=== PATIENT | female | born 1980 | race Caucasian/White ===

== ENCOUNTER 2021-11-13 03:06 | Emergency (ER) | payer OTHER, SELFPAY ==
[2021-11-13 03:26] VITALS: BP 122/80; PULSE 92; RESP 20; TEMP 37; O2SAT 98; BMI 22.1
== END 2021-11-13 08:03 | disposition left against medical advice (07) ==
PROVIDERS: Emergency Provider Emergency Medicine; PCP Internal Medicine
DX: R22.0 Localized swelling, mass and lump, head (principal)
CPT/HCPCS: 99281; 99282

== ENCOUNTER 2021-11-14 03:24 | Emergency (ER) | payer OTHER, SELFPAY ==
[2021-11-14 03:38] VITALS: BP 123/84; PULSE 80; RESP 20; TEMP 37; O2SAT 97; BMI 25.4
--- NOTE | 2021-11-14 05:17 | ED.SKABFB ---
HPI - Skin/Abscess/Foreign Bdy General Chief complaint: Eye Problems Stated complaint: Eye Infection Time Seen by Provider: 11/14/21 05:16 Source: patient Mode of arrival: ambulatory Limitations: no limitations History of Present Illness HPI narrative: Patient with history of IV substance abuse positive small pimple on her left eyebrow 2 days ago for last 24 hours has increased swelling above the left eyebrow with redness patient came here yesterday but left without being seen. No fever no visual problem Related Data Previous Rx's Medication Instructions Recorded cephalexin 500 mg capsule 500 mg PO QID 10 Days #40 cap 11/14/21 doxycycline hyclate 100 mg tablet 100 mg PO BID #20 tab 11/14/21 ibuprofen 600 mg tablet 600 mg PO Q6H PRN #20 tab 11/14/21 Allergies Allergy/AdvReac Type Severity Reaction Status Date / Time No Known Allergies Allergy Unverified 08/11/20 18:45 Review of Systems Review of Systems: Yes all other systems are reviewed and are negative PMFSH Social History Social History Advance Directives: No Advance Directives Information Provided: No Physical Exam Vital Signs: Vital Signs: Last Vital Signs Temp 98.6 F 11/14/21 03:38 Pulse 80 11/14/21 03:38 Resp 20 11/14/21 03:38 BP 123/84 11/14/21 03:38 Pulse Ox 97 11/14/21 03:38 BMI result Body Mass Index 25.4 Const: General: healthy appearing and comfortable HENMT: Face images: 1. Indurated tender swelling left eyebrow with surrounding erythema Resp: Effort & Inspection: normal respiratory effort Auscultation: clear to auscultation bilaterally Cardio: Rate: regular rate Rhythm: regular rhythm MDM - Skin/Abscess/Foreign Bdy MDM Narrative Medical decision making narrative: Patient's cellulitis like to small abscess left eyebrow patient refuse needle aspiration or I&D of the possible early abscess would like to have any antibiotics patient discharged home on antibiotics advised warm compresses and take antibiotic report to the ER if gets worse Discharge Plan Discharge Clinical Impression: Periorbital cellulitis Patient Disposition: Home, Self-Care Instructions: Periorbital Cellulitis in Adults (ED) Additional Instructions: Take antibiotic as advised Report to the ER/PCP was worsening of the swelling for I&D Prescriptions: New cephalexin 500 mg capsule 500 mg PO QID 10 Days Qty: 40 RF: 0 ibuprofen 600 mg tablet 600 mg PO Q6H PRN (Reason: pain) Qty: 20 RF: 0 doxycycline hyclate 100 mg tablet 100 mg PO BID Qty: 20 RF: 0 Interventions: ED Discharge Assessment Last Done: 11/14/21 05:38 Discharge Date/Time: 11/14/21 05:38
[2021-11-14] MEDS: cephALEXin 500 MG CAPSULE PO (05:33)
[2021-11-14] MEDS: Ibuprofen 600 MG TABLET PO (05:33)
== END 2021-11-14 05:38 | disposition home or self-care (01) ==
PROVIDERS: Emergency Provider Internal Medicine
DX: L03.213 Periorbital cellulitis (principal)
CPT/HCPCS: 99283

== ENCOUNTER 2021-12-18 11:29 | Emergency (ER) | payer OTHER, SELFPAY ==
[2021-12-18 11:45] VITALS: BP 139/70; PULSE 75; RESP 19; TEMP 36.1; O2SAT 98; BMI 25.4
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
== END 2021-12-18 14:21 | disposition home or self-care (01) ==
PROVIDERS: Emergency Provider Emergency Medicine
DX: L03.012 Cellulitis of left finger (principal); M79.645 Pain in left finger(s)
CPT/HCPCS: 99282; 99283

== ENCOUNTER 2021-12-23 12:03 | Emergency (ER) | payer OTHER, SELFPAY ==
--- NOTE | ~2021-12-23 | XR_ITS ---
EXAMINATION: XR HAND, LEFT CLINICAL INFORMATION: Question foreign body COMPARISON: Left wrist x-rays 06/15/2020 and left hand x-rays 04/10/2020 TECHNIQUE: PA, lateral, and oblique views of the left hand. FINDINGS: Partially visualized healed fractures of the distal radius and ulna. Carpal rows are well aligned. No carpal, metacarpal or phalangeal fracture. No focal soft tissue swelling. No appreciable degenerative changes. No radiopaque foreign body identified. XR/XR hand LT min 3V IMPRESSION: Grossly unremarkable radiographs of the left hand.
[2021-12-23 12:11] VITALS: BP 126/92; PULSE 90; RESP 18; TEMP 36.6; O2SAT 96; BMI 24.4
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
[2021-12-23] MEDS: Acetaminophen 325 MG TABLET 650 MG PO (13:07)
== END 2021-12-23 13:25 | disposition home or self-care (01) ==
PROVIDERS: Emergency Provider Emergency Medicine
DX: L03.114 Cellulitis of left upper limb (principal); M79.642 Pain in left hand; S61.032D Puncture wound without foreign body of left thumb without damage to nail, subsequent encounter; X58.XXXD Exposure to other specified factors, subsequent encounter
CPT/HCPCS: 73130; 99283; 99284

== ENCOUNTER 2023-04-14 10:37 | Emergency (ER) | payer OTHER, SELFPAY ==
[2023-04-14 10:44] VITALS: BP 117/74; BP 122/88; PULSE 64; RESP 16; TEMP 36.8; O2SAT 96; BMI 23.2
[2023-04-14 10:53] VITALS: BMI 23.4
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
[2023-04-14] MEDS: Amoxicillin/Potassium Clav 500 MG TABLET PO (11:40)
[2023-04-14] MEDS: Rabies Immune Globulin/PF 900 UNIT/3 ML VIAL 1086.8 UNIT IM (11:41)
== END 2023-04-14 12:49 | disposition home or self-care (01) ==
PROVIDERS: Emergency Provider Emergency Medicine Emergency Medical Services
DX: S01.85XA Open bite of other part of head, initial encounter (principal); W53.81XA Bitten by other rodent, initial encounter; Y93.9 Activity, unspecified; Y92.9 Unspecified place or not applicable; Y99.9 Unspecified external cause status; Z59.00 Homelessness unspecified; Z29.14 Encounter for prophylactic rabies immune globulin; Z20.3 Contact with and (suspected) exposure to rabies; Z79.899 Other long term (current) drug therapy; Z23 Encounter for immunization
CPT/HCPCS: 90375; 90471; 90675; 96372; 99282; 99284

== ENCOUNTER → 2023-04-17 13:25 | Outpatient (BNVA) | payer OTHER, SELFPAY | PROVIDERS: Visit Provider Nurse Practitioner Psychiatric/Mental Health | DX: F14.20 Cocaine dependence, uncomplicated (principal); F11.20 Opioid dependence, uncomplicated; B19.20 Unspecified viral hepatitis C without hepatic coma; Z51.81 Encounter for therapeutic drug level monitoring; Z79.899 Other long term (current) drug therapy | CPT/HCPCS: 80305; 99212 ==

== ENCOUNTER 2023-05-16 12:55 | Emergency (ER) | payer OTHER, SELFPAY ==
[2023-05-16 12:57] VITALS: BP 153/90; PULSE 95; RESP 18; TEMP 36.7; O2SAT 98; BMI 21.5
--- NOTE | 2023-05-16 12:58 | ED_ITS ---
HPI - General Adult General Chief complaint: Animal Bite Stated complaint: spider bite Time Seen by Provider: 05/16/23 14:17 Source: patient, RN notes reviewed and old records reviewed Mode of arrival: ambulatory History of Present Illness HPI narrative: 42-year-old female the past medical history of IVDA presents to the ED complaining suspected spider bite to left posterior scalp x yesterday. Patient reports increasing discomfort. Denies pointing/drainage, fever/chills, ear pain, sore throat, difficulty swallowing, decreased neck ROM. Denies injecting into area Onset (ago): day(s) Related Data Previous Rx's Medication Instructions Recorded cephalexin 500 mg capsule 500 mg PO QID 10 days #40 caps 11/14/21 doxycycline hyclate 100 mg tablet 100 mg PO BID #20 tabs 11/14/21 ibuprofen 600 mg tablet 600 mg PO Q6H PRN pain #20 tabs 11/14/21 cephalexin 500 mg capsule 500 mg PO Q6H 7 days #28 caps 12/18/21 sulfamethoxazole 800 1 tab PO Q12H 7 days #14 tabs 12/18/21 mg-trimethoprim 160 mg tablet (Bactrim DS) clindamycin HCl 150 mg capsule 150 mg PO TID Take 2 capsules TID 12/23/21 x 7 days #42 caps amoxicillin 500 mg-potassium 1 tab PO TID #30 tabs 04/14/23 clavulanate 125 mg tablet (Augmentin) buprenorphine 2 mg-naloxone 0.5 mg 1 film buccal BID 4 days #8 ea 04/17/23 sublingual film (Suboxone) buprenorphine 8 mg-naloxone 2 mg 1 film buccal DAILY #4 ea 04/17/23 sublingual film (Suboxone) clonidine HCl 0.1 mg tablet 0.1 mg PO Q6H PRN withdrawal 04/17/23 symptoms #30 tabs hydroxyzine HCl 50 mg tablet 50 mg PO QID PRN anxiety #30 tabs 04/17/23 cephalexin 500 mg capsule 500 mg PO QID 7 days #28 caps 05/16/23 doxycycline hyclate 100 mg tablet 100 mg PO BID 7 days #14 tabs 05/16/23 Allergies Allergy/AdvReac Type Severity Reaction Status Date / Time No Known Allergies Allergy Verified 04/17/23 13:36 Review of Systems Review of Systems: Constitutional: No Fever, No Chills ENT/Mouth: No Ear Pain, No Nasal Congestion, No Sinus Pain, No Hoarseness, No sore throat, No Rhinorrhea, No Swallowing Difficulty Cardiovascular: No Chest Pain, No SOB Respiratory: No Cough, No Sputum, No Wheezing Gastrointestinal: No Nausea, No Vomiting, No Abdominal pain Musculoskeletal: No joint pain, No Myalgias, No Joint Swelling Skin: +abscess, No rash Neuro: No Weakness, No Numbness, No Paresthesias Yes all other systems are reviewed and are negative Constitutional: Constitutional: Reports as per [facility] Past Medical History Attestation statement: The following information was validated with the patient. Source: old records reviewed Medical History Opiate abuse, continuous Social History Social History Advance Directives: No Advance Directives Information Provided: Yes Physical Exam ED Vital Signs: Vital Signs - 24 hr 05/16/23 12:57 Temperature 98.0 F Pulse Rate 95 Respiratory Rate 18 Blood Pressure 153/90 H Pulse Oximetry 98 Oxygen Delivery Method Room Air BMI result Body Mass Index 21.5 Const Other: poor hygiene General: cooperative and no acute distress Orientation/consciousness: patient oriented x3 Limitations: no limitations HENMT Other: + abscess noted to left lower posterior scalp with overlying erythema. + indurated. No pointing or fluctuance. Small amount of surrounding erythema. No neck swelling or torticollis. Mastoid WNL. No crepitus Head: Yes normal to inspection and Yes atraumatic Ears: hearing grossly normal bilaterally, external ears normal, TM's normal bilaterally and mastoids normal General nose exam: Normal external nose present Face and sinus: Yes normal facial exam Mouth: Normal oral and palatal mucosa present, no drooling and no muffled voice Throat: Yes posterior oropharynx normal, Yes tonsils normal, Yes uvula midline, No peritonsillar mass, No uvula laterally displaced and No uvular edema Eyes General: appearance normal, both eyes and all related structures EOM: EOMs intact bilaterally Neck Neck: Yes normal visual inspection, Yes no lymphadenopathy, Yes no meningeal signs, Yes supple, No anterior neck swelling and No torticollis Resp Effort & Inspection: normal respiratory effort and no respiratory distress Cardio Rate: regular rate Skin Rashes: no rashes Wounds: no wounds Neuro General: patient oriented x3, tone normal and no meningeal signs Gait exam (Neuro): Normal gait present Extrem General: Yes normal to inspection Course Course Course Narrative: This is an RME: Additional HPI, ROS, PE not included below will be deferred to primary provider. This is a 42-year-old female presenting to the emergency department for evaluation ? Insect bite the back of her head. Patient noticed this area yesterday has increasing pain and swelling. No fevers or chills. Needs further evaluation in main ER. VSS. Medical Decision Making Medical Decision Making MDM Narrative: 42-year-old female the past medical history of IVDA presents to the ED complaining suspected spider bite to left posterior scalp x yesterday. On exam vital signs stable, NAD, nontoxic appearing, physical exam as above with suspected abscess that is indurated w/overlying cellulitis. Possible spider or insect bite. No other rash. New extending neck or mastoid tenderness/swelling, no respiratory distress or airway compromise. No I&D indicated at this time. Low suspicion for mastoiditis, otitis, MSK pain/strain Plan: Po antibiotics, close follow-up Results discussed with patient including worrisome signs and symptoms and strict return precautions, and when to return to the emergency department. They verbalized understanding and feel safe for discharge at this time. Differential Diagnosis Differential Diagnoses: The differential diagnosis associated with the presentation includes As above External Record Review External record reviewed: Inpatient record, Office record, Outpatient record, Prior outpatient labs, Prior outpatient radiology, Primary care record and Outside ED record Tests considered The following testing was considered but not selected: As above Prescription Management I considered prescription management with: Pain Medication and Antibiotic Social Determinants Patient?s care significantly limited by Social Determinants of Health including: Inadequate housing, Alcoholism and drug addiction in family, Problems related to primary support group and Problems related to employment Discharge Plan Discharge Clinical Impression: Abscess Patient Disposition: Home, Self-Care Instructions: Abscess (ED) Additional Instructions: Doxycycline and Keflex are antibiotic please take as prescribed Apply warm compresses If area is growing, comes to pointing head, is draining or you have fever return to the emergency department Prescriptions: New cephalexin 500 mg capsule 500 mg PO QID 7 Days Qty: 28 0RF doxycycline hyclate 100 mg tablet 100 mg PO BID 7 Days Qty: 14 0RF No Action cephalexin 500 mg capsule 500 mg PO Q6H 7 Days Qty: 28 0RF sulfamethoxazole-trimethoprim [Bactrim DS] 800-160 mg tablet 1 tab PO Q12H 7 Days Qty: 14 0RF clindamycin HCl 150 mg capsule 150 mg PO TID Qty: 42 0RF cephalexin 500 mg capsule 500 mg PO QID 10 Days Qty: 40 0RF ibuprofen 600 mg tablet 600 mg PO Q6H PRN (Reason: pain) Qty: 20 0RF doxycycline hyclate 100 mg tablet 100 mg PO BID Qty: 20 0RF amoxicillin-pot clavulanate [Augmentin] 500-125 mg tablet 1 tab PO TID Qty: 30 0RF buprenorphine-naloxone [Suboxone] 2-0.5 mg film 1 film buccal BID 4 Days Qty: 8 0RF Rx Instructions: place 1 strip/tab under (each) side of tongue buprenorphine-naloxone [Suboxone] 8-2 mg film 1 film buccal DAILY Qty: 4 0RF clonidine HCl 0.1 mg tablet 0.1 mg PO Q6H PRN (Reason: withdrawal symptoms) Qty: 30 0RF hydroxyzine HCl 50 mg tablet 50 mg PO QID PRN (Reason: anxiety) Qty: 30 0RF Referrals: Physician,None [Primary Care Provider] -
[2023-05-16 15:41] VITALS: BP 135/89; PULSE 56; RESP 16; O2SAT 95
== END 2023-05-16 15:46 | disposition home or self-care (01) ==
PROVIDERS: Emergency Provider Student in an Organized Health Care Education/Training Program
DX: L02.811 Cutaneous abscess of head [any part, except face] (principal); F11.10 Opioid abuse, uncomplicated
CPT/HCPCS: 99283; 99284

== ENCOUNTER 2023-06-08 04:10 | Emergency (ER) | payer OTHER, SELFPAY ==
[2023-06-08 04:16] VITALS: BP 136/83; PULSE 89; RESP 18; TEMP 37.2; O2SAT 94; BMI 22.8
[2023-06-08 04:54] LABS: MANUAL DIFF FLAG NO
[2023-06-08 04:55] LABS: Basophils Percent Auto 0.1 % (0-2); Eosinophils Percent Auto 0.3 % (0-4); Hematocrit 34.7 % (37.0-47.0); Hemoglobin 11.3 g/dl (12.0-16.0); Imm Gran Abs Auto 0.08 X10*3/uL (0.00-0.03); Imm Gran Pct Auto 0.6 % (0.0-0.4); Lymphocytes Absolute Auto 1.8 X10*3/uL (1.2-4.9); Lymphocytes Percent Auto 12.5 % (20-40); Mean Corpuscular HGB Conc 32.6 g/dl (31.0-35.0); Mean Corpuscular Hemoglobin 28.8 pg (27.0-33.0); Mean Corpuscular Volume 88.3 fL (80.0-98.0); Mean Platelet Volume 9.6 fL (9.4-12.3); Monocytes Percent Auto 7.1 % (2-11); Neutrophils Absolute Auto 11.3 x10*3/uL (2.0-8.3); Neutrophils Percent Auto 79.4 % (45-73); Platelet Count 262 X10*3/uL (160-400); Red Blood Count 3.93 X10*6/uL (4.20-5.50); Red Cell Distribution Width 14.2 % (11.0-16.0); White Blood Count 14.2 X10*3/uL (4.8-10.8)
[2023-06-08 05:05] LABS: Lactic Acid 0.7 mmol/L (0.5-2.0)
[2023-06-08 05:10] LABS: Alanine Aminotransferase 34 U/L (0-31); Albumin Level 3.6 g/dL (3.5-5.0); Alkaline Phosphatase 57 U/L (39-117); Anion Gap 12 (12-20); Aspartate Amino Transferase 31 U/L (5-31); Bilirubin Total 0.3 mg/dL (0.0-1.0); Blood Urea Nitrogen 17 mg/dL (9-16); Calcium 9.9 mg/dL (8.4-10.2); Carbon Dioxide 26 mmol/L (22-29); Chloride 103 mmol/L (96-108); Creatinine Clr Calc Pharmacy 74.5; Estimated Glomerular Filt Rate > 60; Glucose Random 105 mg/dL (60-115); Potassium 3.9 mmol/L (3.3-5.1); Sodium 137 mmol/L (135-145)
--- NOTE | 2023-06-08 06:32 | ED.GENADULT ---
HPI - General Adult General Chief complaint: Extremity Problem Stated complaint: Abscess/?Arm infection Time Seen by Provider: 06/08/23 06:30 Source: patient, RN notes reviewed and old records reviewed Mode of arrival: ambulatory History of Present Illness HPI narrative: 42-year-old female with past medical history of IVDA presenting to the ED complaining of right arm pain, swelling, and erythema x few days. Admits to injecting cocaine into area. Denies known fever/chills, drainage from area, SOB. Patient was recently seen and treated in our ED on 05/16 for abscess to back of head finished 7 day course of Doxycycline and Keflex Onset (ago): day(s) Related Data Previous Rx's Medication Instructions Recorded cephalexin 500 mg capsule 500 mg PO QID 10 days #40 caps 11/14/21 doxycycline hyclate 100 mg tablet 100 mg PO BID #20 tabs 11/14/21 ibuprofen 600 mg tablet 600 mg PO Q6H PRN pain #20 tabs 11/14/21 cephalexin 500 mg capsule 500 mg PO Q6H 7 days #28 caps 12/18/21 sulfamethoxazole 800 1 tab PO Q12H 7 days #14 tabs 12/18/21 mg-trimethoprim 160 mg tablet (Bactrim DS) clindamycin HCl 150 mg capsule 150 mg PO TID Take 2 capsules TID 12/23/21 x 7 days #42 caps amoxicillin 500 mg-potassium 1 tab PO TID #30 tabs 04/14/23 clavulanate 125 mg tablet (Augmentin) buprenorphine 2 mg-naloxone 0.5 mg 1 film buccal BID 4 days #8 ea 04/17/23 sublingual film (Suboxone) buprenorphine 8 mg-naloxone 2 mg 1 film buccal DAILY #4 ea 04/17/23 sublingual film (Suboxone) clonidine HCl 0.1 mg tablet 0.1 mg PO Q6H PRN withdrawal 04/17/23 symptoms #30 tabs hydroxyzine HCl 50 mg tablet 50 mg PO QID PRN anxiety #30 tabs 04/17/23 cephalexin 500 mg capsule 500 mg PO QID 7 days #28 caps 05/16/23 doxycycline hyclate 100 mg tablet 100 mg PO BID 7 days #14 tabs 05/16/23 cephalexin 500 mg capsule 500 mg PO QID 10 days #40 caps 06/08/23 sulfamethoxazole 800 1 tab PO Q12H 10 days #20 tabs 06/08/23 mg-trimethoprim 160 mg tablet (Bactrim DS) Allergies Allergy/AdvReac Type Severity Reaction Status Date / Time No Known Allergies Allergy Verified 04/17/23 13:36 Review of Systems Review of Systems: Constitutional: No Fever, No Chills ENT/Mouth: No Ear Pain, No Nasal Congestion, No sore throat, No Rhinorrhea, No Swallowing Difficulty Cardiovascular: No Chest Pain, No SOB Respiratory: No Cough, No Sputum, No Wheezing Gastrointestinal: No Nausea, No Vomiting, No Abdominal pain Musculoskeletal: + joint pain, No Myalgias, + Joint Swelling Skin: + Skin Lesions, No rash Neuro: No Weakness, No Numbness, No Paresthesias Yes all other systems are reviewed and are negative Constitutional: Constitutional: Reports as per [facility] Past Medical History Attestation statement: The following information was validated with the patient. Source: old records reviewed Medical History Opiate abuse, continuous Social History Social History Alcohol intake: never Smoked in Last 30 Days: Yes Use of substances other than those prescribed or required for medical reasons: Yes Substance Use Type: Crack/Cocaine Substance Use Frequency: Chronic Longstanding Advance Directives: No Advance Directives Information Provided: Yes Patient : No Physical Exam ED Vital Signs: Vital Signs - 24 hr 06/08/23 04:16 Temperature 98.9 F Pulse Rate 89 Respiratory Rate 18 Blood Pressure 136/83 Pulse Oximetry 94 Oxygen Delivery Method Room Air BMI result Body Mass Index 22.8 Const General: cooperative, no acute distress, alert and awake Orientation/consciousness: patient oriented x3 Limitations: no limitations HENMT Head: Yes normal to inspection and Yes atraumatic Ears: hearing grossly normal bilaterally General nose exam: Normal external nose present Face and sinus: Yes normal facial exam Eyes General: appearance normal, both eyes and all related structures EOM: EOMs intact bilaterally Neck Neck: Yes normal visual inspection and Yes no meningeal signs Resp Effort & Inspection: normal respiratory effort and no respiratory distress Cardio Rate: regular rate Heart sounds: S1 normal heart sound present and S2 normal heart sound present Peripheral pulses: Peripheral pulses 2+ throughout Skin Other: +RUE with diffuse swelling/edema and erythema. Warm to touch. + indurated antecubital area. No focal fluctuance or pointing. No drainage. Neurovascular intact distally. Rashes: no rashes Neuro General: patient oriented x3, tone normal and no meningeal signs Gait exam (Neuro): Normal gait present Extrem General: Yes normal to inspection Course Course Course Narrative: -28--leukocytosis of 14.2. labs otherwise reassuring -0740--patient eloped the ED prior to ultrasound. It did to self remove her IV. We will still send antibiotics to pharmacy in hopes patient picks them up Medications Administered Discontinued Medications Generic Name Dose Route Start Last Admin Trade Name Freq PRN Reason Stop Dose Admin Ceftriaxone Sodium 1 gm/ 50 mls @ 100 mls/hr 06/08/23 06:44 06/08/23 07:31 Sodium Chloride IV 06/08/23 07:13 Infused ONCE ONE Infusion Medical Decision Making Medical Decision Making [facility] Narrative: 42-year-old female with past medical history of IVDA presenting to the ED complaining of right arm pain, swelling, and erythema x few days. On exam vital signs stable, NAD, nontoxic appearing, physical exam as noted above with right upper extremity erythema, swelling, warmth and induration. No fluctuance/pointing. No crepitus. Concern for cellulitis/edema/abscess vs DVT. Lower suspicion for sepsis, compartment syndrome or septic joint Plan: Labs, lactic/blood cultures, venous duplex ultrasound, IV Rocephin Please refer to course for remaining clinical decision making, interpretation of labs/imaging results, and discussions with consultants and/or family members. Differential Diagnosis Differential Diagnoses: The differential diagnosis associated with the presentation includes As above Admission/Observation Consideration of admission/observation: Escalation of care including admission/observation considered Lab Data [facility] Lab Attestation statement: I reviewed the patient's lab results. 06/08/23 04:39 06/08/23 04:39 Labs: Lab Results 06/08/23 06/08/23 06/08/23 Range/Units 04:39 04:39 04:39 WBC 14.2 H (4.8-10.8) X10*3/uL RBC 3.93 L (4.20-5.50) X10*6/uL Hgb 11.3 L (12.0-16.0) g/dl Hct 34.7 L (37.0-47.0) % MCV 88.3 (80.0-98.0) fL MCH 28.8 (27.0-33.0) pg MCHC 32.6 (31.0-35.0) g/dl RDW 14.2 (11.0-16.0) % Plt Count 262 (160-400) X10*3/uL MPV 9.6 (9.4-12.3) fL Immature Gran % (Auto) 0.6 H (0.0-0.4) % Neut % (Auto) 79.4 H (45-73) % Lymph % (Auto) 12.5 L (20-40) % Mellette % (Auto) 7.1 (2-11) % Eos % (Auto) 0.3 (0-4) % Baso % (Auto) 0.1 (0-2) % Lymph # (Auto) 1.8 (1.2-4.9) X10*3/uL Mellette # (Auto) 1.0 (0.1-1.2) X10*3/uL Eos # (Auto) 0.0 (0.0-0.4) X10*3/uL Baso # (Auto) 0.0 (0.0-0.2) X10*3/uL Abs Immat Gran (auto) 0.08 H (0.00-0.03) X10*3/uL Absolute Neuts (auto) 11.3 H (2.0-8.3) x10*3/uL Absolute Nucleated RBC 0.000 (0.0-0.012) X10*3/uL Nucleated RBC % (auto) 0.0 (0.0-0.2) /100WBC Sodium 137 (135-145) mmol/L Potassium 3.9 (3.3-5.1) mmol/L Chloride 103 (96-108) mmol/L Carbon Dioxide 26 (22-29) mmol/L Anion Gap 12 (12-20) BUN 17 H (9-16) mg/dL Creatinine 0.72 (0.5-1.4) mg/dL Estim Creat Clear Calc 74.5 Estimated GFR > 60 Random Glucose 105 (60-115) mg/dL Lactic Acid 0.7 (0.5-2.0) mmol/L Calcium 9.9 (8.4-10.2) mg/dL Total Bilirubin 0.3 (0.0-1.0) mg/dL AST 31 (5-31) U/L ALT 34 H (0-31) U/L Alkaline Phosphatase 57 (39-117) U/L Total Protein 8.0 (6.5-8.0) g/dL Albumin 3.6 (3.5-5.0) g/dL Radiology Impression Discussion of test interpretation with radiology: I have reviewed the radiologist's reading. External Record Review External record reviewed: Inpatient record, Office record, Outpatient record, Prior outpatient labs, Prior outpatient radiology, Primary care record and Outside ED record Tests considered The following testing was considered but not selected: As above Prescription Management I considered prescription management with: Pain Medication and Antibiotic Social Determinants Patient?s care significantly limited by Social Determinants of Health including: Inadequate housing, Low income, Alcoholism and drug addiction in family and Problems related to primary support group Discharge Plan Discharge Clinical Impression: Cellulitis Patient Disposition: Elopement Instructions: Cellulitis (DC) Prescriptions: New sulfamethoxazole-trimethoprim [Bactrim DS] 800-160 mg tablet 1 tab PO Q12H 10 Days Qty: 20 0RF cephalexin 500 mg capsule 500 mg PO QID 10 Days Qty: 40 0RF No Action cephalexin 500 mg capsule 500 mg PO Q6H 7 Days Qty: 28 0RF sulfamethoxazole-trimethoprim [Bactrim DS] 800-160 mg tablet 1 tab PO Q12H 7 Days Qty: 14 0RF clindamycin HCl 150 mg capsule 150 mg PO TID Qty: 42 0RF cephalexin 500 mg capsule 500 mg PO QID 10 Days Qty: 40 0RF ibuprofen 600 mg tablet 600 mg PO Q6H PRN (Reason: pain) Qty: 20 0RF doxycycline hyclate 100 mg tablet 100 mg PO BID Qty: 20 0RF amoxicillin-pot clavulanate [Augmentin] 500-125 mg tablet 1 tab PO TID Qty: 30 0RF cephalexin 500 mg capsule 500 mg PO QID 7 Days Qty: 28 0RF doxycycline hyclate 100 mg tablet 100 mg PO BID 7 Days Qty: 14 0RF buprenorphine-naloxone [Suboxone] 2-0.5 mg film 1 film buccal BID 4 Days Qty: 8 0RF Rx Instructions: place 1 strip/tab under (each) side of tongue buprenorphine-naloxone [Suboxone] 8-2 mg film 1 film buccal DAILY Qty: 4 0RF clonidine HCl 0.1 mg tablet 0.1 mg PO Q6H PRN (Reason: withdrawal symptoms) Qty: 30 0RF hydroxyzine HCl 50 mg tablet 50 mg PO QID PRN (Reason: anxiety) Qty: 30 0RF Interventions: ED Discharge Assessment Last Done: 06/08/23 07:50 Discharge Date/Time: 06/08/23 07:51
--- NOTE | 2023-06-08 06:47 | PC.NURSE ---
Pt A&Ox4, reports 7/10 constant pressure pain x 2 days after IV drug use to Right arm, states I missed . Arm is swollen, red, and warm to touch. IV line placed, blood work collected and sent to lab.
[2023-06-08] MEDS: cefTRIAXone sodium 1 GM in 0.9 % Sodium Chloride 50 ML IV (06:57)
--- NOTE | 2023-06-08 07:49 | PC.NURSE ---
Upon D/C Pt was not in room, IV line and hospital attire were on bed. Provider notified.
== END 2023-06-08 07:51 | disposition left against medical advice (07) ==
PROVIDERS: Emergency Provider Emergency Medicine
DX: L03.113 Cellulitis of right upper limb (principal); F19.10 Other psychoactive substance abuse, uncomplicated
CPT/HCPCS: 36415; 80053; 83605; 85025; 87040; 96365; 99284; J0696

== ENCOUNTER 2023-08-26 10:25 | Outpatient (AMB) | payer OTHER, SELFPAY ==
--- NOTE | 2023-08-26 10:26 | MHC.OFFVIS ---
Intake Vital Signs 08/26/23 10:31 BP 118/72 Blood Pressure Location Lt radial Position Sitting Pulse 78 Pulse Source Pulse Oximeter Pulse Oximetry (%) 96 Oxygen Delivery Method Room Air Intake Visit Reasons: MAT Restart Intake Note: the patient presents for a mat visit Promotions Specialist Required: No Allergies No Known Allergies Allergy (Verified 08/26/23 10:31) Medication List - Last Reconciled 08/26/23 by Savita Quintanilla CNP buprenorphine-naloxone 2-0.5 mg (Suboxone) 1 film buccal BID 4 days Do you need a note to return to daycare/school/sports/work: No HPI MAT Restart HPI Details Patient presents for OUD treatment and restart of buprenorphine She had been seen in this office several months ago, for a very brief period. Having withdrawl sx--restless legs and cramping in stomach Last use yesterday morning Half a bundle to one bundle daily no alcohol crack cocaine - $20 Reports 22 lifetime overdoses in last 2 years (since she started injecting) Hepatitis C--would like to seek treatment once [facility] treatment stabilized Lives in a tent with her partner [facility] Medical History Opiate abuse, continuous Social History Alcohol intake: never Substance Use Type: Crack/Cocaine Review of Systems Const Reports as per HPI, Reports body aches and Reports difficulty sleeping Physical Exam Vital Signs: Last Vital Signs Pulse 78 08/26/23 10:31 BP 118/72 08/26/23 10:31 Pulse Ox 96 08/26/23 10:31 Oxygen Delivery Method Room Air 08/26/23 10:31 Const General: cooperative and healthy appearing Nutritional Appearance: average body habitus Orientation/consciousness: patient oriented x3 Limitations: no limitations Skin Other: left forearm with 2 raised areas--cyst like. painless and soft. Neuro General: patient oriented x3 Results AMB Test Urine AMB Test Urine Negative Last Edit by Charleen Duong CMA on 08/26/23 11:07 Results Reviewed Results Reviewed: Laboratory Last Values [facility] Negative 08/26/23 11:04 Assessment & Plan Assessment & Plan (1) Opioid use disorder: Code(s): F11.90 - Opioid use, unspecified, uncomplicated Plan: comfort medications ordered to take until she is ready to start bupre advised to take 16mg at once for first dose will follow up via phone and refill with be sent for remainder of week Orders: Orders AMB HCG Urine Test Today Z32.01 - Encounter for test, result positive, Z32.02 - Encounter for test, result negative Medications: New clonidine HCl 0.1 mg PO BEDTIME 7 tabs 0RF tizanidine 4 mg PO BID PRN 20 tabs 0RF muscle spasticity trazodone 50 mg PO BEDTIME PRN 10 tabs 0RF sleep buprenorphine-naloxone 8-2 mg (Suboxone) 1 film sublingual TID 10 ea 0RF Coding Level of Care Code Est Pt Level 4 (52135) Diagnoses Opioid use disorder F11.90
[2023-08-26 10:31] VITALS: BP 118/72; PULSE 78; O2SAT 96
== END 2023-08-26 11:31 | disposition home or self-care (01) ==
LOC: HO.HCC 10:25
PROVIDERS: Visit Provider Nurse Practitioner Psychiatric/Mental Health
DX: Z32.02 Encounter for pregnancy test, result negative (principal); Z32.01 Encounter for pregnancy test, result positive; F11.90 Opioid use, unspecified, uncomplicated
CPT/HCPCS: 99214

== ENCOUNTER → 2023-08-26 10:25 | Outpatient (BNVA) | payer OTHER, SELFPAY | PROVIDERS: Visit Provider Nurse Practitioner Psychiatric/Mental Health | DX: F11.20 Opioid dependence, uncomplicated (principal); Z32.02 Encounter for pregnancy test, result negative; Z59.01 Sheltered homelessness; Z51.81 Encounter for therapeutic drug level monitoring; Z79.899 Other long term (current) drug therapy | CPT/HCPCS: 81025; 99212 ==

== ENCOUNTER 2023-08-29 11:02 | Outpatient (AMB) | payer OTHER, SELFPAY ==
--- NOTE | 2023-08-29 11:07 | A.OFFVIS_ITS ---
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 Allergies No Known Allergies Allergy (Verified 08/29/23 11:08) Do you need a note to return to daycare/school/sports/work: No HPI MAT Visit HPI Details Patient presents for CHIP treatment follow up Started suboxone earlier this week Has been taking 2 films daily discussed transitioning to the injection has been using less --last use prior to appt [facility] Medical History Opiate abuse, continuous Social History Alcohol intake: never Substance Use Type: Crack/Cocaine Physical Exam Vital Signs: Last Vital Signs Pulse 81 08/29/23 11:16 BP 118/70 08/29/23 11:16 Pulse Ox 95 08/29/23 11:16 Oxygen Delivery Method Room Air 08/29/23 11:16 Const General: cooperative and healthy appearing Nutritional Appearance: average body habitus Orientation/consciousness: patient oriented x3 Limitations: no limitations Skin Other: left forearm with 2 raised areas--cyst like. painless and soft. Neuro General: patient oriented x3 Results AMB 14 Panel Urine Drug Screen Urine Marijuana (THC) Negative Last Edit by Charleen Duong CMA on 08/29/23 11:18 Urine Cocaine Positive Last Edit by Charleen Duong CMA on 08/29/23 11:18 Urine Morphine Positive Last Edit by Charleen Duong CMA on 08/29/23 11:18 Urine Methamphetamine Negative Last Edit by Charleen Duong CMA on 08/29/23 11:18 Urine Amphetamine Negative Last Edit by Charleen Duong CMA on 08/29/23 11:1 8 Urine Benzodiazepine Negative Last Edit by Charleen Duong CMA on 08/29/23 11:18 Urine Barbiturates Negative Last Edit by Charleen Duong CMA on 08/29/23 11: 18 Urine Methadone Negative Last Edit by Charleen Duong CMA on 08/29/23 11:18 Urine Buprenorphine Negative Last Edit by Charleen Duong CMA on 08/29/23 11 :18 Urine Tricyclic Antidepressant Negative Last Edit by Charleen Duong CMA on 08/29/23 11:18 Urine MDMA Negative Last Edit by Charleen Duong CMA on 08/29/23 11:18 Urine Oxycodone Negative Last Edit by Charleen Duong CMA on 08/29/23 11:18 Urine Phencyclidine Negative Last Edit by Charleen Duong CMA on 08/29/23 11 :18 Urine Propoxyphene Negative Last Edit by Charleen Duong CMA on 08/29/23 11: 18 Results Reviewed Results Reviewed: Laboratory Last Values POC Urine Buprenorphine Negative 08/29/23 11:08 POC Urine Morphine Positive 08/29/23 11:08 POC Urine Oxycodone Negative 08/29/23 11:08 POC Urine Methadone Negative 08/29/23 11:08 POC Urine Propoxyphene Negative 08/29/23 11:08 POC Urine Barbiturates Negative 08/29/23 11:08 POC U Tricyclic Antidpr Negative 08/29/23 11:08 POC Urine PCP Negative 08/29/23 11:08 POC Ur Amphetamines Negative 08/29/23 11:08 POC Ur Methamphetamine Negative 08/29/23 11:08 POC Urine MDMA Negative 08/29/23 11:08 POC Ur Benzodiazepine Negative 08/29/23 11:08 POC Urine Cocaine Positive 08/29/23 11:08 POC Ur Marijuana (THC) Negative 08/29/23 11:08 Assessment & Plan Assessment & Plan (1) Opioid use disorder: Code(s): F11.90 - Opioid use, unspecified, uncomplicated Plan: * continue suboxone at 8mg BID * sublocade injection ordered * follow up one week Orders: Orders AMB 14 Panel Urine Drug Screen Today Z51.81 - Encounter for therapeutic drug level monitoring Medications: New buprenorphine ER (Sublocade) 300 mg (1.5 mL) subcut .every 28 days 1.5 mL 2RF Changed From buprenorphine-naloxone 8-2 mg (Suboxone) 1 film sublingual TID 10 ea 0RF To buprenorphine-naloxone 8-2 mg (Suboxone) 1 film sublingual BID 14 ea 0RF Discontinued buprenorphine-naloxone 2-0.5 mg (Suboxone) place 1 strip/tab under (each) side of tongue Discontinued Reason: No Longer Medically Relevant 1 film buccal BID 4 days 8 ea 0RF Coding Level of Care Code Est Pt Level 4 (17766) Diagnoses Opioid use disorder F11.90
[2023-08-29 11:16] VITALS: BP 118/70; PULSE 81; O2SAT 95
== END 2023-08-29 11:41 | disposition home or self-care (01) ==
PROVIDERS: Visit Provider Nurse Practitioner Psychiatric/Mental Health
DX: Z51.81 Encounter for therapeutic drug level monitoring (principal); F11.90 Opioid use, unspecified, uncomplicated
CPT/HCPCS: 99214

== ENCOUNTER → 2023-08-29 11:02 | Outpatient (BNVA) | payer OTHER, SELFPAY | PROVIDERS: Visit Provider Nurse Practitioner Psychiatric/Mental Health | DX: Z51.81 Encounter for therapeutic drug level monitoring (principal); F11.20 Opioid dependence, uncomplicated | CPT/HCPCS: 80305; 99212 ==

== ENCOUNTER 2023-09-12 11:27 | Outpatient (AMB) | payer OTHER, SELFPAY ==
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
[2023-09-12 11:37] VITALS: BP 116/70; PULSE 100; O2SAT 96
== END 2023-09-12 13:35 | disposition home or self-care (01) ==
PROVIDERS: Visit Provider Nurse Practitioner Psychiatric/Mental Health
DX: Z51.81 Encounter for therapeutic drug level monitoring (principal); F11.90 Opioid use, unspecified, uncomplicated
CPT/HCPCS: 99214

== ENCOUNTER → 2023-09-12 11:27 | Outpatient (BNVA) | payer OTHER, SELFPAY | PROVIDERS: Visit Provider Nurse Practitioner Psychiatric/Mental Health | DX: F11.20 Opioid dependence, uncomplicated (principal) | CPT/HCPCS: 80305; 99212 ==

== ENCOUNTER 2023-09-14 22:31 | Emergency (ER) | payer OTHER, SELFPAY ==
[2023-09-14 22:38] VITALS: BP 136/75; BP 152/86; PULSE 104; PULSE 108; RESP 20; TEMP 37.3; O2SAT 95; BMI 22.8
== END 2023-09-15 01:00 | disposition left against medical advice (07) ==
PROVIDERS: Emergency Provider Emergency Medicine
DX: R53.81 Other malaise (principal); F17.210 Nicotine dependence, cigarettes, uncomplicated; F43.10 Post-traumatic stress disorder, unspecified; F11.20 Opioid dependence, uncomplicated; F41.9 Anxiety disorder, unspecified; F32.A Depression, unspecified; Z53.21 Procedure and treatment not carried out due to patient leaving prior to being seen by health care provider
CPT/HCPCS: 99281

== ENCOUNTER 2023-09-19 01:10 | Inpatient (IN) | payer OTHER, SELFPAY ==
[2023-09-19] VITALS (7 sets, daily range): BP systolic 103–153; BP diastolic 6–92; PULSE 63–94; RESP 14–18; TEMP 36.3–38.1; O2SAT 94–100; BMI 22.8
--- NOTE | ~2023-09-19 | XR_ITS ---
EXAMINATION: XR lumbar spine 2-3V, XR thoracic spine 3V CLINICAL INFORMATION: Pain COMPARISON: None TECHNIQUE: 2 views of the thoracic spine and 3 views of the lumbar spine FINDINGS: THORACIC SPINE: Vertebral body heights are maintained. Alignment is maintained. Disc space heights are maintained. Paravertebral soft tissues are unremarkable. LUMBAR SPINE: 5 nonrib-bearing lumbar-type vertebral bodies. Vertebral body heights are maintained. Alignment is maintained. Disc space heights are maintained. Paravertebral soft tissues are unremarkable. XR/XR lumbar spine 2-3V IMPRESSION: Vertebral body heights and disc space heights are maintained.
--- NOTE | ~2023-09-19 | XR_ITS ---
EXAMINATION: XR ANKLE, RIGHT XR FOOT, RIGHT CLINICAL INDICATION: Fall, foot swelling COMPARISON: Right ankle 10/03/2014 TECHNIQUE: 3 views of the right ankle. 3 views of the right foot. FINDINGS: Alignment at the ankle is anatomic. There is a small chronic appearing osseous density overlying the anterior tibiotalar articulation on the lateral view. There are 2 screws in the distal tibia at the medial malleolus. There is soft tissue swelling about the ankle and along the dorsum of the foot. Alignment throughout the foot appears anatomic. No acute fracture identified in the ankle or foot. XR/XR ankle RT 2V IMPRESSION: Soft tissue swelling about the ankle and along the dorsum of the foot. No acute osseous findings identified in the right ankle or foot.
--- NOTE | ~2023-09-19 | XR_ITS ---
EXAMINATION: XR cervical spine 3V CLINICAL INFORMATION: Pain COMPARISON: None TECHNIQUE: One view of the cervical spine were obtained and patient declined subsequent imaging.. XR/XR cervical spine 3V FINDINGS/IMPRESSION: Limited single view only AP exam. Within the limitations vertebral body heights and disc space heights appear maintained however recommend correlation with lateral radiographs. Visualized portion of the upper lungs appear unremarkable. Soft tissues are grossly unremarkable.
--- NOTE | ~2023-09-19 | XR_ITS ---
EXAMINATION: XR lumbar spine 2-3V, XR thoracic spine 3V CLINICAL INFORMATION: Pain COMPARISON: None TECHNIQUE: 2 views of the thoracic spine and 3 views of the lumbar spine FINDINGS: THORACIC SPINE: Vertebral body heights are maintained. Alignment is maintained. Disc space heights are maintained. Paravertebral soft tissues are unremarkable. LUMBAR SPINE: 5 nonrib-bearing lumbar-type vertebral bodies. Vertebral body heights are maintained. Alignment is maintained. Disc space heights are maintained. Paravertebral soft tissues are unremarkable. XR/XR thoracic spine 3V IMPRESSION: Vertebral body heights and disc space heights are maintained.
--- NOTE | ~2023-09-19 | MR_ITS ---
EXAMINATION: MR ANKLE WITHOUT AND WITH CONTRAST, RIGHT MR FOOT WITHOUT AND WITH CONTRAST, RIGHT CLINICAL INFORMATION: Infection. Evaluate for osteomyelitis. COMPARISON: Right foot and ankle radiographs dated 09/19/2023. TECHNIQUE: MRI of the right ankle and foot was performed before and after the intravenous administration of 6 mL gadolinium on a high-field scanner. FINDINGS: RIGHT ANKLE: BONE AND ARTICULAR CARTILAGE: Prominent artifact related to medial malleolar orthopedic screws. This somewhat obscures the immediately adjacent osseous structures. Patchy marrow edema throughout the visualized osseous structures including the distal tibia and fibula as well as the talus, calcaneus, cuboid, navicular, cuneiforms, and base of the 2nd through 4th metatarsals. Anterior tibial plafond articular cartilage full-thickness fissuring with underlying subchondral cystic change and marrow edema as well as adjacent unfused osteophytes. No talar osteochondral lesion. Degenerative cystic change at the angle of [place]. ACHILLES TENDON: Intact. OTHER TENDONS: The visualized flexor and extensor tendons are intact. No transverse tendon tear or tendon retraction. LIGAMENTS: Absence of the anterior and posterior talofibular ligaments, likely indicating complete tears. JOINT FLUID AND SOFT TISSUES: Moderate tibiotalar and posterior subtalar joint effusions with prominent synovitis. Circumferential subcutaneous edema. No organized fluid collection or abscess formation. PLANTAR FASCIA: Intact. SINUS TARSI AND TARSAL TUNNEL: Patent. RIGHT FOOT: BONE: Patchy marrow edema within the visualized midfoot as well as within the proximal aspect of the 2nd, 3rd, and 4th metatarsals. Mild associated postcontrast marrow enhancement. No fracture line. No concerning lytic or blastic osseous lesion. MUSCLES/TENDONS: The visualized flexor and extensor tendons are intact. Mild edema throughout the intrinsic musculature of the foot. No measurable tear. LIGAMENTS: Intact Lisfranc ligament. SOFT TISSUES: Prominent circumferential soft tissue edema/swelling with mild postcontrast enhancement. No organized fluid collection or abscess formation. MR/MR ankle RT wo/w con IMPRESSION: 1. Patchy marrow edema within the distal tibia and fibula as well as within the talus and calcaneus. Moderate tibiotalar and posterior subtalar joint effusions with synovitis. Findings could indicate an infectious or inflammatory arthropathy in the appropriate clinical setting. 2. Patchy marrow edema throughout the remaining midfoot and within the 2nd through 4th proximal metatarsals without an associated fracture line. Findings could represent stress reactions or osseous contusions. These areas demonstrate mild postcontrast enhancement and osteomyelitis cannot be entirely excluded. 3. Prominent circumferential subcutaneous edema with mild postcontrast enhancement. Findings could represent cellulitis. No organized fluid collection or abscess formation.
--- NOTE | ~2023-09-19 | CT_ITS ---
PROCEDURE: CT GUIDED ASPIRATION, FINE NEEDLE, WITH IMAGE GUIDANCE CLINICAL INFORMATION: Paraspinal abscess centered around T7 vertebra. There is discitis and osteomyelitis at T6-T7 disc level and is superior endplate deformity T7 vertebra. COMPARISON: None available. TECHNIQUE: Following explaining CT fluoroscopy-guided anterior and paravertebral abscess aspiration/drainage procedure, benefits and risk, a written consent was obtained. Patient was placed prone on CT fluoroscopy table and an imaging was obtained of entire thoracic spine. The paravertebral and prevertebral abscess centered around T7-T8 vertebra was identified. Markers were placed along the right para midline centered at T7 vertebra and an optimal lead artis was selected and marked on the skin. The marked area was cleaned and draped in the usual sterile manner with 2% chlorhexidine solution. 1% lidocaine was injected at the puncture site. Under CT fluoroscopy guidance a 20-gauge spinal needle was advanced from the skin into prevertebral soft tissues and aspiration was performed several times. The needle attached to syringe was jiggled anterior and posterior to obtain any fluid/loss abscess. However, [id number] fluid collection could be collected. Sterile saline was inserted and then successfully aspirated. Postprocedure needle was withdrawn and complete hemostasis was achieved at puncture site. Patient tolerated procedure suboptimally. Due to low pain tolerance and alcohol history patient moved continuously during the exam. Conscious sedation was utilized during the exam. This CT examination was performed using dose optimization techniques as appropriate, variously including the following: *Automated exposure control *Adjustment of mA and/or kV according to patient size (this includes techniques or standardized protocols for targeted exams where dose is matched to indication/reason for exam; i.e. extremities or head) *Use of iterative reconstruction technique DLP: 219 mGy-cm FINDINGS: On CT imaging there is paranasal abscess centered around T7 vertebra. On aspiration following placement of needle in right paravertebral space very [id number] fluid could be. A 2 mL of saline was injected and fluid was aspirated and sent to lab for C and S and Gram stain. Fluid was also sent for gram-negative evaluation. Postprocedure of the needle was withdrawn and complete hemostasis achieved. Patient was very uncooperative and kept moving during the exam in spite of conscious sedation. CT/CT guided FNA IMPRESSION: 1. Successful ultrasound-guided right paravertebral aspiration performed. However, no significant puss could be obtained; this may be due to a very thick collection in this region. 2. If there is any further drainage and aspiration of abscess performed this will need anesthesia intervention.
--- NOTE | ~2023-09-19 | MR_ITS ---
MR THORACIC SPINE WITHOUT AND WITH CONTRAST CLINICAL INFORMATION: Back pain. COMPARISON: Thoracic spine radiographs 09/19/2023. TECHNIQUE: MRI of the thoracic spine was obtained using routine sequences with and without contrast. Intravenous contrast: Gadavist 7 mL. FINDINGS: Imaging findings favor osteomyelitis discitis at T6-T7 with a probable superimposed acute upper endplate fracture at T7. There is a large peripherally enhancing paravertebral collection on the right greater than left side at T6-T7, most likely reflecting a paravertebral abscess, measuring up to 4.4 cm TV by 3.7 cm AP. This peripherally enhancing collection results in mass effect on the azygos vein. Enhancement along the periphery of the collection most likely reflects phlegmon and there are small bilateral pleural effusions. A CT could be obtained to assess for any discrete fracture lines. No definite epidural collections with assessment very limited by the degree of motion artifact on this study. There is no thoracic cord compression. MR/MR thoracic spine wo/w con IMPRESSION: - Imaging findings favor osteomyelitis discitis at T6-T7 with a probable superimposed acute upper endplate fracture at T7. There is a large peripherally enhancing paravertebral collection on the right greater than left side at T6-T7, most likely reflecting a paravertebral abscess, measuring up to 4.4 cm TV by 3.7 cm AP. This peripherally enhancing collection results in mass effect on the azygos vein. Enhancement along the periphery of the collection most likely reflects phlegmon and there are small bilateral pleural effusions. I confirmed clinically that there was concern for spinal infection. - No definite epidural collections with assessment very limited by the degree of motion artifact on this study. There is no thoracic cord compression. Findings discussed with Jovani Avelar at 4:11 PM on 09/20/2023.
--- NOTE | ~2023-09-19 | XR_ITS ---
EXAMINATION: XR ANKLE, RIGHT XR FOOT, RIGHT CLINICAL INDICATION: Fall, foot swelling COMPARISON: Right ankle 10/03/2014 TECHNIQUE: 3 views of the right ankle. 3 views of the right foot. FINDINGS: Alignment at the ankle is anatomic. There is a small chronic appearing osseous density overlying the anterior tibiotalar articulation on the lateral view. There are 2 screws in the distal tibia at the medial malleolus. There is soft tissue swelling about the ankle and along the dorsum of the foot. Alignment throughout the foot appears anatomic. No acute fracture identified in the ankle or foot. XR/XR foot RT 2V IMPRESSION: Soft tissue swelling about the ankle and along the dorsum of the foot. No acute osseous findings identified in the right ankle or foot.
[2023-09-19] MEDS: Acetaminophen 325 MG TABLET 650 MG PO ×2 (01:38→17:32)
[2023-09-19 03:00] LABS: MANUAL DIFF FLAG NO
[2023-09-19 03:02] LABS: Basophils Percent Auto 0.1 % (0-2); Hematocrit 34.6 % (37.0-47.0); Hemoglobin 11.2 g/dl (12.0-16.0); Imm Gran Abs Auto 0.08 X10*3/uL (0.00-0.03); Imm Gran Pct Auto 0.6 % (0.0-0.4); Lymphocytes Absolute Auto 1.7 X10*3/uL (1.2-4.9); Lymphocytes Percent Auto 11.9 % (20-40); Mean Corpuscular HGB Conc 32.4 g/dl (31.0-35.0); Mean Corpuscular Hemoglobin 27.9 pg (27.0-33.0); Mean Corpuscular Volume 86.1 fL (80.0-98.0); Mean Platelet Volume 9.1 fL (9.4-12.3); Monocytes Absolute Auto 1.2 X10*3/uL (0.1-1.2); Monocytes Percent Auto 8.6 % (2-11); Neutrophils Absolute Auto 11.2 x10*3/uL (2.0-8.3); Neutrophils Percent Auto 78.8 % (45-73); Platelet Count 231 X10*3/uL (160-400); Red Blood Count 4.02 X10*6/uL (4.20-5.50); Red Cell Distribution Width 15.2 % (11.0-16.0); White Blood Count 14.2 X10*3/uL (4.8-10.8)
--- NOTE | 2023-09-19 03:06 | ED.LOWEXIN ---
HPI - Extremity Injury (Lower) General Chief Complaint: Extremity Injury, Lower Stated Complaint: Ankle swelling Time Seen by Provider: 09/19/23 01:39 Source: patient Mode of arrival: ambulatory History of Present Illness HPI Narrative: 42-year-old female who is IVDA and states that she is had ongoing pain and swelling with redness in her right foot and denies injecting into that foot. She also reports chills. Related Data Previous Rx's Medication Instructions Recorded clonidine HCl 0.1 mg tablet 0.1 mg PO BEDTIME #7 tabs 08/26/23 tizanidine 4 mg tablet 4 mg PO BID PRN muscle spasticity 08/26/23 #20 tabs trazodone 50 mg tablet 50 mg PO BEDTIME PRN sleep #10 tabs 08/26/23 buprenorphine 300 mg/1.5 mL 300 mg (1.5 mL) subcut .every 28 08/29/23 solution,exten.rel.subcutaneous days #1.5 mL syringe (Sublocade) buprenorphine 8 mg-naloxone 2 mg 1 film sublingual BID #14 ea 09/12/23 sublingual film (Suboxone) Allergies Allergy/AdvReac Type Severity Reaction Status Date / Time No Known Allergies Allergy Verified 09/12/23 11:29 Review of Systems Review of Systems: Pertinent positives and negatives as stated in HPI PMFSH Past Medical History Source: nursing notes reviewed Medical History Opiate abuse, continuous Social History Social History Alcohol intake: never Smoked in Last 30 Days: Yes Use of substances other than those prescribed or required for medical reasons: Yes Substance Use Type: Crack/Cocaine and Heroin Substance Use Frequency: Daily Advance Directives: No Advance Directives Information Provided: Yes Patient : No Physical Exam Vital Signs: Vital Signs: Last Vital Signs Temp 99 F 09/19/23 02:13 Pulse 84 09/19/23 02:13 Resp 16 09/19/23 02:13 BP 113/74 09/19/23 02:13 Pulse Ox 98 09/19/23 02:13 O2 Del Method Room Air 09/19/23 02:13 BMI result Body Mass Index 22.8 VITAL SIGNS: Reviewed. GENERAL: Well developed, well nourished, in no acute distress. HEAD: Normocephalic/atraumatic EYES: PERRLA, EOMI EARS: Ext canals without abnormality NOSE: Nares patent bilateral OROPHARYNX: no oral lesions noted, posterior pharynx clear NECK: Supple, no adenopathy LUNGS: Normal breath sounds. No adventitious sounds or accessory muscle use. SpO2<98> CARDIOVASCULAR: Regular rate and rhythm without noted murmurs ABDOMEN: Soft, non-tender, non-distended with bowel sounds. MUSCULOSKELETAL: No tenderness, deformities, or effusions noted on gross inspection, obvious needle tracks on bilateral upper extremities consistent with IVDA use. EXTREMITIES: No cyanosis, clubbing or edema. RIGHT FOOT: Significant erythema and swelling, predominantly on dorsum lateral aspect but significant area over the medial malleoli, good palpable pulses with warm foot SKIN: Inspection of the skin reveals no rashes, NEUROLOGIC: Alert and oriented x 4. Strength and sensation to light touch were grossly intact x 4. Medications Administered Generic Name Dose Route Start Last Admin Trade Name Freq PRN Reason Stop Dose Admin Sodium Chloride 1,000 mls @ 999 mls/hr 09/19/23 03:15 09/19/23 03:18 Ns IV 09/19/23 04:15 999 mls/hr .Q1H1M ANA Administration Discontinued Medications Generic Name Dose Route Start Last Admin Trade Name Freq PRN Reason Stop Dose Admin Acetaminophen 650 mg 09/19/23 01:23 09/19/23 01:38 Acetaminophen 325 Mg Tablet PO 09/19/23 01:24 650 mg ONCE ONE Administration Piperacillin Sod/Tazobactam 50 mls @ 100 mls/hr 09/19/23 03:10 09/19/23 03:17 Sod 3.375 gm/ Sodium Chloride IV 09/19/23 03:39 100 mls/hr ONCE ONE Administration Medical Decision Making Medical Decision Making [facility] Narrative: 0230: 42-year-old female with history and clinical presentation, DDX: I clinical suspicion for infectious cellulitis of right foot and much lower clinical suspicion for fracture or dislocation. Labs, CRP, IV fluids as well as antibiotics have been ordered. 0309: I discussed case with inpatient hospitalist who accepts admission. I reviewed all investigations and hematologic indices are significant for leukocytosis and left shift, there is no thrombocytopenia but there is a stable normocytic anemia. Chemistry indices do not demonstrate any LINDA or electrolyte derangement, liver enzymes demonstrate a mild transaminitis which is likely related to patient's polysubstance use and CRP is significantly elevated at 26.03 Patient received IV fluids, and antibiotics. Differential Diagnosis Differential Diagnoses: The differential diagnosis associated with the presentation includes Please see the discussion above Admission/Observation Consideration of admission/observation: Escalation of care including admission/observation considered Please see the discussion above Consult Healthcare Provider Management of the patient was discussed with: Hospitalist Please see the discussion above Lab Data MDM Lab Attestation statement: I reviewed the patient's lab results. Please see the discussion above 09/19/23 02:53 09/19/23 02:53 Labs: Lab Results 09/19/23 Range/Units 02:53 WBC 14.2 H (4.8-10.8) X10*3/uL RBC 4.02 L (4.20-5.50) X10*6/uL Hgb 11.2 L (12.0-16.0) g/dl Hct 34.6 L (37.0-47.0) % MCV 86.1 (80.0-98.0) fL MCH 27.9 (27.0-33.0) pg MCHC 32.4 (31.0-35.0) g/dl RDW 15.2 (11.0-16.0) % Plt Count 231 (160-400) X10*3/uL MPV 9.1 L (9.4-12.3) fL Immature Gran % (Auto) 0.6 H (0.0-0.4) % Neut % (Auto) 78.8 H (45-73) % Lymph % (Auto) 11.9 L (20-40) % [place] % (Auto) 8.6 (2-11) % Eos % (Auto) 0.0 (0-4) % Baso % (Auto) 0.1 (0-2) % Lymph # (Auto) 1.7 (1.2-4.9) X10*3/uL [place] # (Auto) 1.2 (0.1-1.2) X10*3/uL Eos # (Auto) 0.0 (0.0-0.4) X10*3/uL Baso # (Auto) 0.0 (0.0-0.2) X10*3/uL Abs Immat Gran (auto) 0.08 H (0.00-0.03) X10*3/uL Absolute Neuts (auto) 11.2 H (2.0-8.3) x10*3/uL Absolute Nucleated RBC 0.000 (0.0-0.012) X10*3/uL Nucleated RBC % (auto) 0.0 (0.0-0.2) /100WBC Sodium 137 (135-145) mmol/L Potassium 3.4 (3.3-5.1) mmol/L Chloride 102 (96-108) mmol/L Carbon Dioxide 25 (22-29) mmol/L Anion Gap 13 (12-20) BUN 20 H (9-16) mg/dL Creatinine 0.76 (0.5-1.4) mg/dL Estim Creat Clear Calc 70.6 Estimated GFR > 60 Random Glucose 122 H (60-115) mg/dL Lactic Acid 1.2 (0.5-2.0) mmol/L Calcium 9.3 D (8.4-10.2) mg/dL Total Bilirubin 0.3 (0.0-1.0) mg/dL AST 46 H (5-31) U/L ALT 38 H (0-31) U/L Alkaline Phosphatase 83 (39-117) U/L C-Reactive Protein 26.03 H (< or = 0.50) mg/dL Total Protein 7.5 (6.5-8.0) g/dL Albumin 3.2 L (3.5-5.0) g/dL Radiology Impression Discussion of test interpretation with radiology: I have reviewed the radiologist's reading. Radiologist Impression: Please see the discussion above External Record Review External record reviewed: Outpatient record, Prior outpatient labs and Prior outpatient radiology Chronic Conditions Patient?s care impacted by: Other IVDA use disorder Critical Care Time Critical Care Time Critical Care Time: Yes Total Critical Care Time: 30 Attestation: I personally attest to this time spent taking care of the patient. Discharge Plan Discharge Clinical Impression: Cellulitis of foot, right, Polysubstance use disorder, Sepsis Patient Disposition: Admitted As Inpatient
[2023-09-19 03:11] LABS: Lactic Acid 1.2 mmol/L (0.5-2.0)
[2023-09-19 03:16] LABS: Alanine Aminotransferase 38 U/L (0-31); Albumin Level 3.2 g/dL (3.5-5.0); Alkaline Phosphatase 83 U/L (39-117); Anion Gap 13 (12-20); Aspartate Amino Transferase 46 U/L (5-31); Bilirubin Total 0.3 mg/dL (0.0-1.0); Blood Urea Nitrogen 20 mg/dL (9-16); C Reactive Protein 26.03 mg/dL (< or = 0.50); Calcium 9.3 mg/dL (8.4-10.2); Carbon Dioxide 25 mmol/L (22-29); Chloride 102 mmol/L (96-108); Creatinine Clr Calc Pharmacy 70.6; Estimated Glomerular Filt Rate > 60; Glucose Random 122 mg/dL (60-115); Potassium 3.4 mmol/L (3.3-5.1); Sodium 137 mmol/L (135-145); Total Protein 7.5 g/dL (6.5-8.0)
[2023-09-19] MEDS: Piperacillin Sodium/Tazobactam 3.375 GM in 0.9 % Sodium Chloride 50 ML IV ×4 (03:17→20:03)
[2023-09-19] MEDS: 0.9 % Sodium Chloride 1,000 ML 999 ML IV (03:18)
--- NOTE | 2023-09-19 03:18 | PC.NURSE ---
20g IV inserted into the left AC at 0254 by Chris SOTO
--- NOTE | 2023-09-19 03:24 | P.HPHOSP_ITS ---
History of Present Illness Date of Service: 09/19/23 Chief Complaint: Foot infection This is a 42-year-old female with pertinent history of IV drug use disorder presents to the emergency department for evaluation of right foot infection. Patient states it started when days prior to presentation. She noticed swelling of her right foot over the ankle with associated redness and pain. It has been progressive over the last 24 hours. No purulent drainage. Has associated chills, no documented fever. Admits to using IV opioids. No fever, nausea, vomiting, chest discomfort, palpitations, shortness of breath, changes in urinary or bowel habits. In the emergency department, patient was initiated on empiric IV antibiotics Review of Systems 2 Constitutional: Constitutional: Reports chills Cardiovascular: Cardiovascular: Reports no additional cardiovascular complaints Respiratory: Respiratory: Reports no additional respiratory complaints Gastrointestinal: Gastrointestinal: Reports no additional gastrointestinal complaints Genitourinary: Genitourinary: Reports no additional female genitourinary complaints Musculoskeletal: Musculoskeletal: Reports arthralgias and Reports joint swelling [facility] Medical History Opiate abuse, continuous Pertinent family history: No family history of early CAD Social History Alcohol intake: never Smoked in Last 30 Days: Yes Use of substances other than those prescribed or required for medical reasons: Yes Substance Use Type: Crack/Cocaine and Heroin Substance Use Frequency: Daily Advance Directives: No Advance Directives Information Provided: Yes Patient : No Meds Allergies Allergy/AdvReac Type Severity Reaction Status Date / Time No Known Allergies Allergy Verified 09/12/23 11:29 Active Medications: Current Medications Acetaminophen (Acetaminophen 325 Mg Tablet) 650 mg PO Q6H PRN PRN Reason: Pain, Mild (Pain Scale 1-3) Enoxaparin Sodium (Enoxaparin Sodium 40 Mg/0.4 Ml Syringe) 40 mg SUBCUT Q24H ANA Piperacillin Sod/Tazobactam (Sod 3.375 gm/ Sodium Chloride) 50 mls @ 100 mls/hr IV ONCE ONE Stop: 09/19/23 03:39 Last Admin: 09/19/23 03:17 Dose: 100 mls/hr Sodium Chloride (Ns) 1,000 mls @ 999 mls/hr IV .Q1H1M ANA Stop: 09/19/23 04:15 Last Admin: 09/19/23 03:18 Dose: 999 mls/hr Vancomycin HCl 1,250 mg/ (Sodium Chloride) 250 mls @ 166.667 mls/hr IV ONCE ONE; Protocol Stop: 09/19/23 04:59 Melatonin (Melatonin 3 Mg Tablet) 6 mg PO BEDTIME PRN PRN Reason: Insomnia Ondansetron HCl (Ondansetron Hcl 4 Mg/2 Ml Vial) 4 mg IVPUSH Q8H PRN PRN Reason: Nausea and Vomiting Pharmacy Consult (Consult Rx Vancomycin Dosing) 1 each MISCELLANE DAILY PRN PRN Reason: Consult order Stop: 09/19/23 03:22 Pharmacy Consult (Consult Rx Vancomycin Dosing) 1 each MISCELLANE DAILY PRN PRN Reason: Consult order Sodium Chloride (0.9 % Sodium Chloride Flush 3 Ml Syringe) 3 ml IVFLUSH QSHIFT REPLACED BY [facility] Physical Exam 2 Vital Signs and Narrative: Vital Signs: Last Vital Signs Temp 99 F 09/19/23 02:13 Pulse 84 09/19/23 02:13 Resp 16 09/19/23 02:13 BP 113/74 09/19/23 02:13 Pulse Ox 98 09/19/23 02:13 O2 Del Method Room Air 09/19/23 02:13 BMI result Body Mass Index 22.8 Middle-aged male lying in bed in no distress Neck supple, no JVD Regular rate and rhythm, S1-S2 heard Regular breath sounds bilaterally, no wheezing or crackles appreciated Abdomen soft nontender, no guarding, no rigidity Patient is awake, alert and oriented to self, place, time and person ; no focal motor deficit Extremity: Dorsolateral aspect of the right foot with erythema, swelling and tenderness Psych: Normal mood No pedal edema Results Labs 09/19/23 02:53 09/19/23 02:53 Labs: Laboratory Results - last 24 hr 09/19/23 02:53 MCV 86.1 MCH 27.9 MCHC 32.4 RDW 15.2 Plt Count 231 MPV 9.1 L Immature Gran % (Auto) 0.6 H Neut % (Auto) 78.8 H Lymph % (Auto) 11.9 L [place] % (Auto) 8.6 Eos % (Auto) 0.0 Baso % (Auto) 0.1 Lymph # (Auto) 1.7 [place] # (Auto) 1.2 Eos # (Auto) 0.0 Baso # (Auto) 0.0 Abs Immat Gran (auto) 0.08 H Absolute Neuts (auto) 11.2 H Absolute Nucleated RBC 0.000 Nucleated RBC % (auto) 0.0 Anion Gap 13 Estim Creat Clear Calc 70.6 Estimated GFR > 60 Random Glucose 122 H Lactic Acid 1.2 Calcium 9.3 D Total Bilirubin 0.3 AST 46 H ALT 38 H Alkaline Phosphatase 83 C-Reactive Protein 26.03 H Total Protein 7.5 Albumin 3.2 L Imaging Radiologist's Impressions: Impressions Ankle X-Ray 09/19/23 01:36 IMPRESSION: Soft tissue swelling about the ankle and along the dorsum of the foot. No acute osseous findings identified in the right ankle or foot. Foot X-Ray 09/19/23 01:36 IMPRESSION: Soft tissue swelling about the ankle and along the dorsum of the foot. No acute osseous findings identified in the right ankle or foot. Assessment and Plan (1) Cellulitis of foot, right: Status: Acute Plan This is a 42-year-old female with pertinent history of IV drug use disorder presents to the emergency department for evaluation of right foot infection. #. Acute nonpurulent cellulitis of the right foot: Will admit patient with empiric IV antibiotics due to extensive cellulitis. No sepsis. Follow blood cultures #. Opioid use disorder: Monitor for withdrawal. Consulting Addiction team Med rec pending DVT prophylaxis: Lovenox Admit as inpatient and will require two night minimum hospital stay for IV antibiotics Time Spent With Patient Time: Total time managing care of this patient today ____ minutes. Quality Stroke Does the patient have a stroke diagnosis?: No VTE Prior VTE?: No VTE Risk Level:: Medical - moderate - high VTE Device Contraindication: Treatment Not Indicated VTE Drug Contraindication: N/A - Med Ordered
[2023-09-19] MEDS: vancomycin HCL 1,250 MG in 0.9 % Sodium Chloride 250 ML 166.67 MG IV (04:01)
[2023-09-19] MEDS: traMADoL HCL 50 MG TABLET PO ×2 (05:36→09:38)
[2023-09-19 05:41] LABS: MANUAL DIFF FLAG NO
[2023-09-19 05:47] LABS: Basophils Percent Auto 0.2 % (0-2); Eosinophils Percent Auto 0.1 % (0-4); Hematocrit 29.7 % (37.0-47.0); Hemoglobin 9.5 g/dl (12.0-16.0); Imm Gran Abs Auto 0.07 X10*3/uL (0.00-0.03); Imm Gran Pct Auto 0.5 % (0.0-0.4); Lymphocytes Absolute Auto 1.2 X10*3/uL (1.2-4.9); Lymphocytes Percent Auto 9.1 % (20-40); Mean Corpuscular Hemoglobin 27.8 pg (27.0-33.0); Mean Corpuscular Volume 86.8 fL (80.0-98.0); Mean Platelet Volume 9.5 fL (9.4-12.3); Monocytes Absolute Auto 1.1 X10*3/uL (0.1-1.2); Monocytes Percent Auto 8.7 % (2-11); Neutrophils Absolute Auto 10.6 x10*3/uL (2.0-8.3); Neutrophils Percent Auto 81.4 % (45-73); Platelet Count 216 X10*3/uL (160-400); Red Blood Count 3.42 X10*6/uL (4.20-5.50); Red Cell Distribution Width 15.3 % (11.0-16.0)
[2023-09-19 06:02] LABS: Anion Gap 12 (12-20); Blood Urea Nitrogen 15 mg/dL (9-16); Calcium 8.5 mg/dL (8.4-10.2); Carbon Dioxide 22 mmol/L (22-29); Chloride 106 mmol/L (96-108); Creatinine Clr Calc Pharmacy 86.6; Estimated Glomerular Filt Rate > 60; Glucose Random 112 mg/dL (60-115); Potassium 3.2 mmol/L (3.3-5.1); Sodium 137 mmol/L (135-145)
--- NOTE | 2023-09-19 06:36 | PHA.PROG ---
Admission Date/Time: September 19, 2023 03:22 Indication:skin Weight in k.07 kg Adjusted body weight in K.528 [place] body weight in K.5 Obesity Dosing Indication % IBW: Serum Creatinine - Last 168 Hours 09/19/23 09/19/23 02:53 05:22 Creatinine 0.76 0.62 Estimated CrCl and GFR - Last 168 Hours 09/19/23 09/19/23 02:53 05:22 Estim Creat Clear Calc 70.6 86.6 Estimated GFR > 60 > 60 Vancomycin Loading Dose: 1250 Current Vancomycin Dosing Regimen: 1000 Q12h Vancomycin Monitoring using AUC goal of 400 - 600 range with trough as surrogate marker: 509 Date and Time for next Vancomycin Level to be drawn: 09/20 @1400 Pharmacist Comments on Vancomycin Plan: Vancomycin dosing will take advantage of Room [employer] as a clinical decision support tool that uses Bayesian modeling to calculate individual patient's pharmacokinetic parameters and forecast the patient's drug concentration time course with the target goal AUC 24 range of 400 - 600 mg/L/hr.
[2023-09-19] MEDS: Potassium Chloride ER 20 MEQ TAB.ER.PRT 40 MEQ PO (08:08)
[2023-09-19] MEDS: Enoxaparin Sodium 40 MG/0.4 ML SYRINGE SUBCUT (08:08)
[2023-09-19] MEDS: 0.9 % Sodium Chloride Flush 3 ML SYRINGE IVFLUSH ×3 (08:12→23:28)
[2023-09-19 08:14] LABS: Immature Retic Fraction 14.8 % (3.0-15.9); Retic HGB Equivalent 22.3 pg (30.0-35.0); Reticulocyte Percent 1.1 % (0.5-1.8); Reticulocytes Absolute 0.038 X10*6/uL (0.026-0.095)
[2023-09-19 08:25] LABS: Iron 7 mcg/dL (30-160); Lactate Dehydrogenase 175 U/L (122-220); Percent Iron Saturation 4 % (15-50); Total Iron Binding Capacity 192 mcg/dL (228-428); Unsaturated Iron Binding 185 ug/dL
--- NOTE | 2023-09-19 08:40 | PC.NURSE ---
meds given as ordered, pt resting quietly, no apparent distress. vss.
--- NOTE | 2023-09-19 08:41 | PHA.MEDREC ---
Pharmacy Consult ? Medication Reconciliation Pharmacy has completed the medication reconciliation. Spoke to pateint at bedside, stated that it's been a few days since she took her suboxone bc she did use yesterday. Recently had withdrawal medications filled, stated clonidine does help her sleep
[2023-09-19 08:45] LABS: Ferritin 200 ng/mL (10-250)
--- NOTE | 2023-09-19 09:09 | MHC.RECOVRN ---
Met with pt in ED12 after consult placed to Addiction Medicine for opioid use. Pt presented to ED reporting fall 2 days ago and pain and swelling to the right foot and left ribs. Pt subsequently admitted for cellulitis. Pt laying in bed, awake, alert, writhing in pain, tearful. Pt reports tramadol is not sufficient for pain management. Pt difficult to engage in conversation due to present state. Pt currently a patient of the [facility], prescribed Suboxone 8 mg BID. Pt reports last Suboxone dose on 09/16. Was last seen at the [facility] on 09/12 and provided with a one week prescription. Pt currently reports heroin/fentanyl use, 1-2 bags daily, IV, last use yesterday 5 pm. Pt does not report withdrawal symptoms at this time. Denies other substances. Pt asking t/w to contact , Jason [phone], to make aware of pts admission. Pt denies other questions or concerns at this time. Discussed with Savita Quintanilla APRN.
--- NOTE | 2023-09-19 09:45 | PC.NURSE ---
pt requested pain med for 8 back pain. prn po pain med given. will reassess.
[2023-09-19] MEDS: ondansetron HCL 4 MG/2 ML VIAL IVPUSH (10:02)
[2023-09-19] MEDS: Morphine Sulfate 4 MG/ML CARTRIDGE IVPUSH (10:04)
--- NOTE | 2023-09-19 10:06 | PC.NURSE ---
pt moaning in pain. states 09/03. medicated with prn zofran and morphine nor nausea and pain
[2023-09-19] MEDS: oxyCODONE HCl Immed Release 5 MG TABLET 10 MG PO (10:35)
--- NOTE | 2023-09-19 10:40 | PC.NURSE ---
pt requests pain med for 10/10 back pain. prn po pain meds given. pt refused suboxone at this time. states I will take it later suboxone wasted with two rns present. will reassess.
[2023-09-19] MEDS: HYDROmorphone HCl 1 MG/ML SYRINGE IVPUSH (11:42)
--- NOTE | 2023-09-19 12:27 | PC.NURSE ---
pt was given iv dilaudid for 10/10 back pain. she reports that the pain med did not touch the pain . Dr. Yeung aware, no new orders received.
[2023-09-19] MEDS: HYDROmorphone HCl 1 MG/ML SYRINGE 2 MG IVPUSH (13:22)
--- NOTE | 2023-09-19 14:25 | PM.EVENT ---
Event Note Date of Service: 09/19/23 Event Note: Day hospitalist update S: c/o severe mid-back pain O: Temp Pulse Resp BP Pulse Ox O2 Del Method 98.1 F 84 17 148/92 H 100 Room Air 09/19/23 07:35 09/19/23 12:49 09/19/23 12:49 09/19/23 12:49 09/19/23 12:49 09/19/23 12:49 Gen: c/o severe pain HEENT: sclera anicteric, moist mucus membranes Neck: supple Lungs: clear to auscultation bilaterally Heart: regular rate and rhythm, no murmurs Abd: soft, non-tender, non-distended Ext: no edema Skin: warm/well-perfused, R medial foot with erythema and swelling Neuro: alert and oriented x3, no focal findings Psych: appropriate affect Labs: WBC 13, Hb 9.5, K 3.2 A/P: d1 42yo F with OUD presenting with R foot cellulitis cellultiis of R foot - IV vanc + pip-carina 09/19-, BCx pending, pain control with PO oxycodone + IV hydromorphone back pain - plain films, may need MRI OUD - Suboxone, Addiction Medicine consultation - screen HBV/HCV/HIV VTE ppx - LMWH dispo - eventual home In my clinical judgment, the patient requires continued hospitalization for the following reasons: IV ABX Time Spent With Patient Time: Total time managing care of this patient today __40__ minutes.
--- NOTE | 2023-09-19 14:54 | PC.NURSE ---
pt transferred from stretcher to hospital bed for comfort.
--- NOTE | 2023-09-19 15:05 | PC.NURSE ---
pt taken to XRAY. her is at her bedside
[2023-09-19] MEDS: Ferrous Sulfate 324 MG TABLET.DR PO (15:21)
[2023-09-19] MEDS: methADONE HCl 20 MG/2 ML ORAL.CONC 30 MG PO (15:27)
--- NOTE | 2023-09-19 15:27 | MHC.RECOVRN ---
Met with pt in ED12 to follow up and provide support. Pt laying in bed, extremely restless, reporting 10/10 pain. Pt appears to be experiencing opioid withdrawal in addition to pain symptoms. Pt interested in methadone to address symptoms. Savita Quintanilla APRN, aware.
--- NOTE | 2023-09-19 15:59 | PC.NURSE ---
report given to BRITTANY Vale. pt will be transported to room 352. pt aware of plan of care.
--- NOTE | 2023-09-19 16:02 | PM.EVENT ---
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 States she has not taken her prescribed suboxone since Saturday. Has been using opiates daily since then Plan: -discussed with attending, pain medications adjusted -patient agreeable to methadone to address any withdrawal sx likely contributing to current discomfort--30mgX1 and 10mg X1 later this evening -methadone 40mg in AM and follow up with patient regarding ongoing plan Time Spent With Patient Time: Total time managing care of this patient today ____ minutes.
--- NOTE | 2023-09-19 16:29 | MHC.CM.PN ---
CM ATTEMPTED TO SEE PT WHO WAS OFF UNIT CM TO RETURN
[2023-09-19] MEDS: vancomycin HCL 1,000 MG in 0.9 % Sodium Chloride 250 ML 270 MG IV (17:33)
[2023-09-19] MEDS: methADONE HCl 20 MG/2 ML ORAL.CONC 10 MG PO (20:02)
[2023-09-19] MEDS: cloNIDine HCL 0.1 MG TABLET PO (20:02)
[2023-09-20] VITALS: BP 135/62; PULSE 75; RESP 18; TEMP 37.1; O2SAT 93
[2023-09-20] MEDS: Piperacillin Sodium/Tazobactam 3.375 GM in 0.9 % Sodium Chloride 50 ML IV ×2 (03:21→09:27)
[2023-09-20] MEDS: vancomycin HCL 1,000 MG in 0.9 % Sodium Chloride 250 ML 270 MG IV ×2 (03:53→16:48)
[2023-09-20 04:00] VITALS: BP 92/55; PULSE 76; RESP 18; TEMP 37.2; O2SAT 93
[2023-09-20 05:55] LABS: Hematocrit 29.3 % (37.0-47.0); Hemoglobin 9.4 g/dl (12.0-16.0); Mean Corpuscular HGB Conc 32.1 g/dl (31.0-35.0); Mean Corpuscular Hemoglobin 28.1 pg (27.0-33.0); Mean Corpuscular Volume 87.5 fL (80.0-98.0); Mean Platelet Volume 9.5 fL (9.4-12.3); Platelet Count 255 X10*3/uL (160-400); Red Blood Count 3.35 X10*6/uL (4.20-5.50); Red Cell Distribution Width 15.5 % (11.0-16.0); White Blood Count 14.2 X10*3/uL (4.8-10.8)
[2023-09-20 06:19] LABS: Alanine Aminotransferase 29 U/L (0-31); Albumin Level 2.8 g/dL (3.5-5.0); Alkaline Phosphatase 77 U/L (39-117); Anion Gap 12 (12-20); Aspartate Amino Transferase 30 U/L (5-31); Bilirubin Total 0.2 mg/dL (0.0-1.0); Blood Urea Nitrogen 12 mg/dL (9-16); Calcium 8.7 mg/dL (8.4-10.2); Carbon Dioxide 23 mmol/L (22-29); Chloride 105 mmol/L (96-108); Creatinine Clr Calc Pharmacy 83.9; Estimated Glomerular Filt Rate > 60; Glucose Random 112 mg/dL (60-115); Potassium 3.9 mmol/L (3.3-5.1); Sodium 136 mmol/L (135-145); Total Protein 6.8 g/dL (6.5-8.0)
[2023-09-20 06:33] LABS: HBS Num1 267.31 mIU/mL (0-7.99); HBc Num1 0.56 S/CO (0.00-0.79); HBsAGNum1 0.39 S/CO (0.00-0.99); HIV AB/AG Nonreactive (Nonreactive); HIV Num 1 0.05 S/CO (0.00-0.99); Hepatitis B Core Antibody Nonreactive (Nonreactive); Hepatitis B Surface Antigen Negative (Negative); ~HepC Num1 3.73 S/CO (0.00-0.79); ~Hepatitis B Surface Antibody REACTIVE (Nonreactive); ~Hepatitis C Antibody Reactive (Nonreactive)
--- NOTE | 2023-09-20 07:00 | CA_ITS ---
Transthoracic Echocardiogram Patient (Last, First, Middle): Norma Chiang, Gender: Female Date of : 1980 Age: 42 Procedure Date: 09/20/2023 Procedure Type: Transthoracic Echocardiogram Location: S3E Height: 152.4 cm Weight: 53.07 kg BSA: 1.49 m2 Heart Rate: 68 bpm BP: 118 / 60 mmHg Final Assembler Boat: Referring MD: Jovani Yeung MD Leather Tacker: Lang Guerra MD Symptoms: staph bacteremia, IVDA; r/o IE Study Quality: Adequate ECG Rhythm: Sinus Conclusions: - 1. Normal LV ejection fraction 60 65% 2. No obvious evidence of vegetations on this study 3. Mildly dilated left atrium 4. Mildly elevated right uncle systolic pressure and mildly elevated right atrial pressures 5. No gross pericardial effusion Findings Left Ventricle Normal left ventricular size, thickness, and systolic function. The visually estimated ejection fraction is between 60-65%. Spectral Doppler is indicative of a normal filling pattern. Right Ventricle Mildly increased right ventricular cavity size. There is normal right ventricular systolic function. Atria The left atrium is mildly dilated. There is no evidence of interatrial shunt. The right atrium is likely dilated. Aortic Valve The aortic valve structure and function is likely normal. There is no aortic valve stenosis. There is no aortic valve regurgitation. Mitral Valve There is mild anterior and posterior mitral leaflet thickening. There is trace mitral valve regurgitation. There is no mitral valve stenosis. Tricuspid Valve Likely normal tricuspid valve structure and function. There is mild tricuspid valve regurgitation. Mildly elevated right atrial pressure. Mild pulmonary hypertension is present. Great Vessels All visible segments of the aorta are normal in size. The pulmonary artery was not well visualized. Venous The inferior vena cava is mildly dilated and collapses less than 50% with inspiration. Pericardium/Pleural There is no evidence of pericardial effusion. Prior Study Comparison No prior study available for comparison. Measurements 2D Linear Measurements IVSd: 1.06 0.6-0.9/0.6-1.0 cm LVIDd: 4.67 3.9-5.3/4.2-5.9 cm LVIDd Index: 3.13 2.4-3.2/2.2-3.1 cm/m2 LVIDs: 2.94 2.0-3.6 cm LVPWd: 1.02 0.7-1.1 cm LA Diam: 4.60 2.7-3.8/3.0-4.0 cm LAIDs Index: 3.09 1.5-2.3 cm/m2 LV Mass: 213.93 67-162/88-224 g LV Mass Index: 143.58 43-95/49-115 g/m2 LVOT Diam: 2.00 3.0+(-)1.3 cm Mitral Valve MV Pk E: 1.02 MV PK A: 0.68 MV Decel Time: 215.00 E/A: 1.50 E'Lateral: 14.10 E'Medial: 11.50 E/E' Med: 8.90 E/E' Lat: 7.20 PHT: 63.00 MVA PHT: 3.49 Decel [place]: 4.73 Aortic Valve AoV Pk Vernon: 2.21 AoV Mn Vernon: 1.49 AoV VTI: 0.43 AoV Pk Grad: 20.00 Aov Mn Grad: 11.00 REDDY Cont.VTI: 2.17 LVOT LVOT Pk Vernon: 1.53 LVOT Mn Vernon: 0.98 LVOT VTI: 0.30 LVOT Pk Grad: 9.00 LVOT Mn Grad: 5.00 LVOT Diam: 2.00 LVOT Area: 3.14 Diastolic Function MV Pk E: 1.02 MV Pk A: 0.68 E/A: 1.50 E'Medial: 11.50 E/E' Med: 8.90 E' Laterial: 14.10 E/E' Lat: 7.20 Right Ventricle TAPSE (mm): 33.00 TVS' Vernon: 20.50 Tricuspid Valve TR Pk Vernon: 2.96 TR Pk Grad: 35.00 RA Press: 8.00 RVSP: 43.00 Great Vessels Aorta Sinus of Valsalva: 2.90 2.0-3.5 cm Ao Asc: 3.10 2.1-3.4 cm Pulmonary Valve PV Pk Vernon: 1.13 Peak PV Grad: 5.00 Updated in Other Vendor System with Status of Final Lang Guerra MD electronically signed on 09/20/2023 3:19:11 PM with status of Final
[2023-09-20 07:04] VITALS: BP 132/68; PULSE 68; RESP 17; TEMP 36.6; O2SAT 94
[2023-09-20] MEDS: Enoxaparin Sodium 40 MG/0.4 ML SYRINGE SUBCUT (09:26)
[2023-09-20] MEDS: 0.9 % Sodium Chloride Flush 3 ML SYRINGE IVFLUSH ×2 (09:27→20:47)
[2023-09-20] MEDS: methADONE HCl 20 MG/2 ML ORAL.CONC 40 MG PO (09:27)
[2023-09-20] MEDS: Ferrous Sulfate 324 MG TABLET.DR PO (09:27)
--- NOTE | 2023-09-20 09:39 | MHC.CM.PN ---
Pt is homeless, she is working with addition services to get on [employer], she and her (bedside) are on a waiting list for a [facility]. She reports that she does not have an ID and is working on getting one. DC plan, self care, CM to follow and assist with DC plan.
--- NOTE | 2023-09-20 10:45 | P.PNIM_ITS ---
Subjective Subjective Date of Service: 09/20/23 Interval History: BCx both positive for GPCs in clusters C/o mid-back pain No fever T100.5 @ 1600 yesterday Review of Systems Review of Systems: Yes all other systems are reviewed and are negative Physical Exam 2 Vital Signs: Vital Signs: Last Vital Signs Temp 97.9 F 09/20/23 07:04 Pulse 68 09/20/23 07:04 Resp 17 09/20/23 07:04 BP 132/68 09/20/23 07:04 Pulse Ox 94 09/20/23 07:04 O2 Del Method Room Air 09/20/23 07:04 BMI result Body Mass Index 22.8 Gen: c/o severe pain HEENT: sclera anicteric, moist mucus membranes Neck: supple Lungs: clear to auscultation bilaterally Heart: regular rate and rhythm, no murmurs Abd: soft, non-tender, non-distended Ext: no edema Skin: warm/well-perfused, R medial foot with erythema and swelling, L thigh with developing phlegmon without erythema or drainage Neuro: alert and oriented x3, no focal findings Psych: appropriate affect Objective Data Active Medications Acetaminophen (Acetaminophen 325 Mg Tablet) 650 mg PO Q6H PRN PRN Reason: Pain, Mild (Pain Scale 1-3) Last Admin: 09/19/23 17:32 Dose: 650 mg Documented By: JO Clonidine HCl (Clonidine Hcl 0.1 Mg Tablet) 0.1 mg PO BEDTIME [facility]; Protocol Last Admin: 09/19/23 20:02 Dose: 0.1 mg Documented By: JO Enoxaparin Sodium (Enoxaparin Sodium 40 Mg/0.4 Ml Syringe) 40 mg SUBCUT Q24H [facility] Last Admin: 09/20/23 09:26 Dose: 40 mg Documented By: TERRY Ferrous Sulfate (Ferrous Sulfate 324 Mg Tablet.) 324 mg PO DAILY [facility] Last Admin: 09/20/23 09:27 Dose: 324 mg Documented By: TERRY Hydromorphone HCl (Hydromorphone Hcl 1 Mg/Ml Syringe) 2 mg IVPUSH Q4H PRN; Protocol PRN Reason: severe pain Last Admin: 09/19/23 13:22 Dose: 2 mg Documented By: JONATHAN Vancomycin HCl 1,000 mg/ (Sodium Chloride) 270 mls @ 270 mls/hr IV Q12H [facility] Last Infusion: 09/20/23 04:57 Dose: Infused Documented By: NISA Piperacillin Sod/Tazobactam (Sod 3.375 gm/ Sodium Chloride) 50 mls @ 100 mls/hr IV Q6H [facility] Last Infusion: 09/20/23 09:58 Dose: Infused Documented By: TERRY Melatonin (Melatonin 3 Mg Tablet) 6 mg PO BEDTIME PRN PRN Reason: Insomnia Methadone HCl (Methadone Hcl 20 Mg/2 Ml Oral.Conc) 40 mg PO DAILY [facility] Last Admin: 09/20/23 09:27 Dose: 40 mg Documented By: TERRY Nicotine (Nicotine 21 Mg Patch.Td24) 21 mg TRANSDERMA DAILY [facility] Ondansetron HCl (Ondansetron Hcl 4 Mg/2 Ml Vial) 4 mg IVPUSH Q8H PRN PRN Reason: Nausea and Vomiting Last Admin: 09/19/23 10:02 Dose: 4 mg Documented By: LILLY Oxycodone HCl (Oxycodone Hcl Immed Release 5 Mg Tablet) 10 mg PO Q4H PRN PRN Reason: Pain, Moderate(Pain Scale 4-6) Last Admin: 09/19/23 10:35 Dose: 10 mg Documented By: JONATHAN Pharmacy Consult (Consult Rx Vancomycin Dosing) 1 each MISCELLANE DAILY PRN PRN Reason: Consult order Sodium Chloride (0.9 % Sodium Chloride Flush 3 Ml Syringe) 3 ml IVFLUSH QSHIFT [facility] Last Admin: 09/20/23 09:27 Dose: 3 ml Documented By: TERRY Trazodone HCl (Trazodone Hcl 50 Mg Tablet) 50 mg PO BEDTIME PRN PRN Reason: sleep Labs 09/20/23 05:07 09/20/23 05:07 Labs: Laboratory Results - last 24 hr 09/20/23 05:07 MCV 87.5 MCH 28.1 MCHC 32.1 RDW 15.5 Plt Count 255 MPV 9.5 Absolute Nucleated RBC 0.000 Nucleated RBC % (auto) 0.0 Anion Gap 12 Estim Creat Clear Calc 83.9 Estimated GFR > 60 Random Glucose 112 Calcium 8.7 Total Bilirubin 0.2 AST 30 ALT 29 Alkaline Phosphatase 77 Total Protein 6.8 Albumin 2.8 L Hep Bs Antigen Negative Hep Bs Antibody REACTIVE Hep B Core Total Ab Nonreactive Hepatitis C Ab (EIA) Reactive H HIV 1&2 Ab/P24 Ag 4thGn Nonreactive Microbiology Microbiology Results: Microbiology 09/19/23 02:56 Blood Culture - Preliminary Blood - Venous Prelim: GPC Gram Stain only 09/19/23 02:56 Blood Culture - Preliminary Blood - Venous Prelim: GPC Gram Stain only Assessment and Plan (1) Sepsis: Status: Acute Plan d1 42yo F with OUD presenting with R foot cellulitis, found to have bacteremia GPC bacteremia cellultiis of R foot - IV vanc + pip-carina 09/19-, follow BCx and repeat tomorrow, TTE to r/o IE, ID consultation, pain control with PO oxycodone + IV hydromorphone mid-back pain - MRI T-spine to r/o SEA OUD - Addiction Medicine consulted, switched Suboxone to methadone HCV - outpt treatment VTE ppx - LMWH dispo - will need STR In my clinical judgment, the patient requires continued hospitalization for the following reasons: IV ABX Time Spent With Patient Time: Total time managing care of this patient today ___40 minutes. Quality Stroke Does the patient have a stroke diagnosis?: No VTE Prior VTE?: No VTE Risk Level:: Medical - moderate - high VTE Device Contraindication: Treatment Not Indicated VTE Drug Contraindication: N/A - Med Ordered
[2023-09-20] MEDS: gadobutroL 7.5 ML VIAL IVPUSH (13:25)
[2023-09-20] MEDS: Nicotine 21 MG PATCH.TD24 TRANSDERMA (13:26)
[2023-09-20 14:57] LABS: Vancomycin Random 5.2 mcg/mL (15-20)
[2023-09-20 15:08] VITALS: BP 133/78; PULSE 80; RESP 18; TEMP 37.8; O2SAT 94
--- NOTE | 2023-09-20 15:22 | HE.PHANOTE ---
RE PABLO INCREASING DOSE TO 1000MG Q8H, AUC 549, TROUGH 14.4. NEXT LEVEL DUE 09/21 @1400 YOUSUF
--- NOTE | 2023-09-20 15:59 | P.CNID_ITS ---
History of Present Illness Data of Consult Service Date: 09/20/23 Requesting physician: Jovani Yeung Primary Care Provider: Unknown Physician HPI Reason for consult: staph aureus bacteremia She presents with weakness and redness right foot and left thigh as well for last week. She came to ER on 09/19. She has staph bacteremia. She has h/o MRSA in past. She uses IV drugs. She is HIV negative and Hepatitis C antibody positive. Review of Systems 2 Review of Systems: Yes all other systems are reviewed and are negative PMFSH Past Medical History Medical History (Updated 09/20/23 @ 16:04 by Miranda Carreno MD) Hepatitis C antibody positive in blood Cocaine abuse Heroin abuse PTSD (post-traumatic stress disorder) Depression Anxiety Opiate abuse, continuous Family History Family history: reviewed and not pertinent Social History Social History Household Members: Spouse Housing: Homeless Do you presently have visiting nurse or other home services: No Alcohol intake: never Patient Tobacco Use Status: Current everyday Tobacco user Tobacco use type: Cigarette Cigarette Packs Per Day: 1 Cigarettes Per Day: 20.0 Years Smoked: 15 Second Hand Smoke Exposure: Yes Substance Use Type: Crack/Cocaine, Heroin and Marijuana service: No Meds Allergies Allergy/AdvReac Type Severity Reaction Status Date / Time No Known Allergies Allergy Verified 09/12/23 11:29 Active Medications: Current Medications Acetaminophen (Acetaminophen 325 Mg Tablet) 650 mg PO Q6H PRN PRN Reason: Pain, Mild (Pain Scale 1-3) Last Admin: 09/19/23 17:32 Dose: 650 mg Clonidine HCl (Clonidine Hcl 0.1 Mg Tablet) 0.1 mg PO BEDTIME ANA; Protocol Last Admin: 09/19/23 20:02 Dose: 0.1 mg Enoxaparin Sodium (Enoxaparin Sodium 40 Mg/0.4 Ml Syringe) 40 mg SUBCUT Q24H ANA Last Admin: 09/20/23 09:26 Dose: 40 mg Ferrous Sulfate (Ferrous Sulfate 324 Mg Tablet.Dr) 324 mg PO DAILY ANA Last Admin: 09/20/23 09:27 Dose: 324 mg Hydromorphone HCl (Hydromorphone Hcl 1 Mg/Ml Syringe) 2 mg IVPUSH Q4H PRN; Protocol PRN Reason: severe pain Last Admin: 09/19/23 13:22 Dose: 2 mg Vancomycin HCl 1,000 mg/ (Sodium Chloride) 270 mls @ 270 mls/hr IV Q8H [facility] Melatonin (Melatonin 3 Mg Tablet) 6 mg PO BEDTIME PRN PRN Reason: Insomnia Methadone HCl (Methadone Hcl 20 Mg/2 Ml Oral.Conc) 40 mg PO DAILY [facility] Last Admin: 09/20/23 09:27 Dose: 40 mg Nicotine (Nicotine 21 Mg Patch.Td24) 21 mg TRANSDERMA DAILY [facility] Last Admin: 09/20/23 13:26 Dose: 21 mg Ondansetron HCl (Ondansetron Hcl 4 Mg/2 Ml Vial) 4 mg IVPUSH Q8H PRN PRN Reason: Nausea and Vomiting Last Admin: 09/19/23 10:02 Dose: 4 mg Oxycodone HCl (Oxycodone Hcl Immed Release 5 Mg Tablet) 10 mg PO Q4H PRN PRN Reason: Pain, Moderate(Pain Scale 4-6) Last Admin: 09/19/23 10:35 Dose: 10 mg Pharmacy Consult (Consult Rx Vancomycin Dosing) 1 each MISCELLANE DAILY PRN PRN Reason: Consult order Sodium Chloride (0.9 % Sodium Chloride Flush 3 Ml Syringe) 3 ml IVFLUSH QSHIFT [facility] Last Admin: 09/20/23 15:23 Dose: Not Given Trazodone HCl (Trazodone Hcl 50 Mg Tablet) 50 mg PO BEDTIME PRN PRN Reason: sleep Physical Exam 2 Vital Signs: Vital Signs: Last Vital Signs Temp 100.1 F 09/20/23 15:08 Pulse 80 09/20/23 15:08 Resp 18 09/20/23 15:08 BP 133/78 09/20/23 15:08 Pulse Ox 94 09/20/23 15:08 O2 Del Method Room Air 09/20/23 15:08 BMI result Body Mass Index 22.8 Const: General: cooperative HEENT: Head: Yes normal to inspection Face and sinus: Yes normal facial exam Mouth: Normal oral and palatal mucosa present Teeth and gingiva: d entition normal Eyes: General: appearance normal, both eyes and all related structures P upils: Equal, round and reactive pupils present Resp: Effort & Inspection: normal respiratory effort Cardio: Rate: regular rate Rhythm: regular rhythm GI: Palpation (GI): Soft to palpation and nontender : General: Yes no CVA tenderness Back/Spine/Pelvis: Back: no CVA tenderness Skin: General skin exam: no rashes or lesions noted Neuro: General: moves all extremities Cranial nerves: Yes Equal, round and reactive pupils present Extrem: Other: hot reddened right foot painful lower neck area also General: Yes normal to inspection Psych: Appearance: grossly normal Results Labs 09/20/23 05:07 09/20/23 05:07 Labs: Short CBC 09/20/23 Range/Units 05:07 WBC 14.2 H (4.8-10.8) X10*3/uL Hgb 9.4 L (12.0-16.0) g/dl Hct 29.3 L (37.0-47.0) % Plt Count 255 (160-400) X10*3/uL BMP 09/20/23 05:07 Sodium 136 Potassium 3.9 D Chloride 105 Carbon Dioxide 23 BUN 12 Creatinine 0.64 Calcium 8.7 Liver Function 09/20/23 Range/Units 05:07 Total Bilirubin 0.2 (0.0-1.0) mg/dL AST 30 (5-31) U/L ALT 29 (0-31) U/L Alkaline Phosphatase 77 (39-117) U/L Albumin 2.8 L (3.5-5.0) g/dL Microbiology Microbiology Results: Microbiology 09/19/23 02:56 Blood - Venous Blood Culture - Preliminary Staphylococcus aureus 09/19/23 02:56 Blood - Venous Blood Culture - Preliminary Staphylococcus aureus Assessment and Plan (1) Sepsis: Status: Acute Continue Vancomycin for now. Await blood culture. Echo,MRI foot Hepatitis C viral load. Likely 4-6 week IV antibiotics. (2) Polysubstance use disorder: Status: Acute (3) Opioid use disorder: Status: Acute (4) Hepatitis C antibody positive in blood: Status: Acute Time Spent With Patient Time: Total time managing care of this patient today ____ minutes.
[2023-09-20 19:26] VITALS: BP 149/46; PULSE 82; RESP 20; TEMP 38.2; O2SAT 95
[2023-09-20] MEDS: methADONE HCl 20 MG/2 ML ORAL.CONC 5 MG PO (20:44)
[2023-09-20] MEDS: cloNIDine HCL 0.1 MG TABLET PO (20:45)
[2023-09-20] MEDS: Acetaminophen 325 MG TABLET 650 MG PO (20:45)
[2023-09-20] MEDS: Melatonin 3 MG TABLET 6 MG PO (20:45)
[2023-09-20 23:45] VITALS: BP 124/77; PULSE 86; RESP 18; TEMP 36.6; O2SAT 96
[2023-09-21] MEDS: vancomycin HCL 1,000 MG in 0.9 % Sodium Chloride 250 ML 270 MG IV ×2 (00:11→07:32)
[2023-09-21] MEDS: oxyCODONE HCl Immed Release 5 MG TABLET 10 MG PO ×4 (00:40→20:20)
[2023-09-21 03:23] VITALS: RESP 18
[2023-09-21 06:11] LABS: Hematocrit 28.4 % (37.0-47.0); Hemoglobin 9.1 g/dl (12.0-16.0); Mean Corpuscular Volume 87.4 fL (80.0-98.0); Mean Platelet Volume 9.2 fL (9.4-12.3); Platelet Count 243 X10*3/uL (160-400); Red Blood Count 3.25 X10*6/uL (4.20-5.50); Red Cell Distribution Width 15.5 % (11.0-16.0); White Blood Count 13.4 X10*3/uL (4.8-10.8)
[2023-09-21 06:19] LABS: INTERNATIONAL NORM RATIO 1.2 (0.9-1.1)
[2023-09-21 06:23] LABS: Anion Gap 13 (12-20); Blood Urea Nitrogen 10 mg/dL (9-16); Calcium 8.7 mg/dL (8.4-10.2); Carbon Dioxide 25 mmol/L (22-29); Chloride 102 mmol/L (96-108); Creatinine Clr Calc Pharmacy 94.2; Estimated Glomerular Filt Rate > 60; Glucose Random 104 mg/dL (60-115); Potassium 3.8 mmol/L (3.3-5.1); Sodium 136 mmol/L (135-145)
[2023-09-21 06:42] LABS: Erythrocyte Sedimentation Rate 111 MM/HR (0-20)
[2023-09-21 07:19] VITALS: BP 124/69; PULSE 65; RESP 20; TEMP 37.4; O2SAT 94
[2023-09-21] MEDS: Ferrous Sulfate 324 MG TABLET.DR PO (07:31)
[2023-09-21] MEDS: Enoxaparin Sodium 40 MG/0.4 ML SYRINGE SUBCUT (07:31)
[2023-09-21] MEDS: methADONE HCl 20 MG/2 ML ORAL.CONC 45 MG PO (07:31)
[2023-09-21] MEDS: Nicotine 21 MG PATCH.TD24 TRANSDERMA (07:32)
[2023-09-21] MEDS: 0.9 % Sodium Chloride Flush 3 ML SYRINGE IVFLUSH ×3 (07:32→19:08)
--- NOTE | 2023-09-21 09:32 | HO.PM.IMPN ---
Subjective Subjective Date of Service: 09/21/23 Interval History: pain controlled T 100.7 @ 19:26 no leg weakness or numbness no saddle anesthesia Review of Systems Review of Systems: Yes all other systems are reviewed and are negative Physical Exam Vital Signs: Vital Signs: Last Vital Signs Temp 99.4 F 09/21/23 07:19 Pulse 65 09/21/23 07:19 Resp 20 09/21/23 07:19 BP 124/69 09/21/23 07:19 Pulse Ox 94 09/21/23 07:19 O2 Del Method Room Air 09/21/23 07:19 BMI result Body Mass Index 22.8 Gen: NAD HEENT: sclera anicteric, moist mucus membranes Neck: supple Lungs: clear to auscultation bilaterally Heart: regular rate and rhythm, no murmurs Abd: soft, non-tender, non-distended Back: mid-thoracic tenderness Ext: no edema Skin: warm/well-perfused, R medial foot with erythema and swelling, L thigh with developing phlegmon without erythema or drainage Neuro: alert and oriented x3, no focal weakness Psych: appropriate affect Objective Data Active Medications Acetaminophen (Acetaminophen 325 Mg Tablet) 650 mg PO Q6H PRN PRN Reason: Pain, Mild (Pain Scale 1-3) Last Admin: 09/20/23 20:45 Dose: 650 mg Documented By: JOYCE Clonidine HCl (Clonidine Hcl 0.1 Mg Tablet) 0.1 mg PO BEDTIME [facility]; Protocol Last Admin: 09/20/23 20:45 Dose: 0.1 mg Documented By: JOYCE Enoxaparin Sodium (Enoxaparin Sodium 40 Mg/0.4 Ml Syringe) 40 mg SUBCUT Q24H [facility] Last Admin: 09/21/23 07:31 Dose: 40 mg Documented By: KIRSTIN Ferrous Sulfate (Ferrous Sulfate 324 Mg Tablet.Dr) 324 mg PO DAILY [facility] Last Admin: 09/21/23 07:31 Dose: 324 mg Documented By: KIRSTIN Hydromorphone HCl (Hydromorphone Hcl 1 Mg/Ml Syringe) 2 mg IVPUSH Q4H PRN; Protocol PRN Reason: severe pain Last Admin: 09/19/23 13:22 Dose: 2 mg Documented By: DANNYCL Vancomycin HCl 1,000 mg/ (Sodium Chloride) 270 mls @ 270 mls/hr IV Q8H [facility] Last Infusion: 09/21/23 08:39 Dose: Infused Documented By: KIRSTIN Melatonin (Melatonin 3 Mg Tablet) 6 mg PO BEDTIME PRN PRN Reason: Insomnia Last Admin: 09/20/23 20:45 Dose: 6 mg Documented By: JOYCE Methadone HCl (Methadone Hcl 20 Mg/2 Ml Oral.Conc) 45 mg PO DAILY [facility] Last Admin: 09/21/23 07:31 Dose: 45 mg Documented By: KIRSTIN Nicotine (Nicotine 21 Mg Patch.Td24) 21 mg TRANSDERMA DAILY [facility] Last Admin: 09/21/23 07:32 Dose: 21 mg Documented By: KIRSTIN Ondansetron HCl (Ondansetron Hcl 4 Mg/2 Ml Vial) 4 mg IVPUSH Q8H PRN PRN Reason: Nausea and Vomiting Last Admin: 09/19/23 10:02 Dose: 4 mg Documented By: LILLY Oxycodone HCl (Oxycodone Hcl Immed Release 5 Mg Tablet) 10 mg PO Q4H PRN PRN Reason: Pain, Moderate(Pain Scale 4-6) Last Admin: 09/21/23 00:40 Dose: 10 mg Documented By: JOYCE Pharmacy Consult (Consult Rx Vancomycin Dosing) 1 each MISCELLANE DAILY PRN PRN Reason: Consult order Sodium Chloride (0.9 % Sodium Chloride Flush 3 Ml Syringe) 3 ml IVFLUSH QSHIFT [facility] Last Admin: 09/21/23 07:32 Dose: 3 ml Documented By: KIRSTIN Trazodone HCl (Trazodone Hcl 50 Mg Tablet) 50 mg PO BEDTIME PRN PRN Reason: sleep Labs 09/21/23 06:01 09/21/23 06:01 Labs: Laboratory Results - last 24 hr 09/20/23 09/21/23 09/21/23 14:30 06:00 06:01 MCV 87.4 MCH 28.0 MCHC 32.0 RDW 15.5 Plt Count 243 MPV 9.2 L Absolute Nucleated RBC 0.000 Nucleated RBC % (auto) 0.0 ESR 111 H PT 15.0 H INR 1.2 H APTT 26.0 Anion Gap 13 Estim Creat Clear Calc 94.2 Estimated GFR > 60 Random Glucose 104 Calcium 8.7 Random Vancomycin 5.2 L Impressions Thoracic Spine MRI 09/20/23 13:15 IMPRESSION: - Imaging findings favor osteomyelitis discitis at T6-T7 with a probable superimposed acute upper endplate fracture at T7. There is a large peripherally enhancing paravertebral collection on the right greater than left side at T6-T7, most likely reflecting a paravertebral abscess, measuring up to 4.4 cm TV by 3.7 cm AP. This peripherally enhancing collection results in mass effect on the azygos vein. Enhancement along the periphery of the collection most likely reflects phlegmon and there are small bilateral pleural effusions. I confirmed clinically that there was concern for spinal infection. - No definite epidural collections with assessment very limited by the degree of motion artifact on this study. There is no thoracic cord compression. Findings discussed with Jovani Avelar at 4:11 PM on 09/20/2023. TTE 09/20/23 1. Normal LV ejection fraction 60 65% 2. No obvious evidence of vegetations on this study 3. Mildly dilated left atrium 4. Mildly elevated right uncle systolic pressure and mildly elevated right atrial pressures 5. No gross pericardial effusion Microbiology Microbiology Results: Microbiology 09/19/23 02:56 Blood Culture - Final Blood - Venous Staphylococcus aureus 09/19/23 02:56 Blood Culture - Final Blood - Venous Staphylococcus aureus Assessment and Plan (1) Sepsis: Status: Acute Plan d3 42yo F with OUD presenting with R foot cellulitis, found to have MSSA bacteremia + T6-T7 osteomyelitis/diskitis/paravertebral abscess MSSA bacteremia T6-T7 osteomyelitis/diskitis/paravertebral abscess cellulitis of R foot phlegmon L thigh - IV vanc + pip/carina 09/09-09/21, change to cefazolin today, total 6 wk from 1st negative culture [drawn today], ID following - MRI R foot - CT-guided drainage of paravertebral abscess ordered for 09/23; NPO after midnight 09/23 - pain control with PO oxycodone + IV hydromorphone OUD - Addiction Medicine consulted, switched Suboxone to methadone, increased to 45 mg daily tobacco abuse - NRT HCV - viral load pending, outpt treatment VTE ppx - LMWH; hold 09/[address]-guided drainage dispo - will need STR x 6 wk In my clinical judgment, the patient requires continued hospitalization for the following reasons: IV ABX, abscess drainage Time Spent With Patient Time: Total time managing care of this patient today _45___ minutes. Quality Stroke Does the patient have a stroke diagnosis?: No VTE Prior VTE?: No VTE Risk Level:: Medical - moderate - high VTE Device Contraindication: Treatment Not Indicated VTE Drug Contraindication: N/A - Med Ordered
[2023-09-21] MEDS: ceFAZolin Sodium/Dextrose,Iso 2 GM/50 ML PIGGYBACK IV ×2 (09:53→17:48)
[2023-09-21] MEDS: gadobutroL 7.5 ML VIAL IVPUSH (12:22)
--- NOTE | 2023-09-21 12:41 | MHC.RECOVRN ---
trim mounter met with patient in room 352-1. Upon entering the room, patient appeared to be resting. Boyfriend also asleep in recliner next to her. She sat up to converse, however started having intense pain in her lower, mid back so she laid leaning to the right side. She's awake- A+Ox3. Wincing in pain with certain movements. She reports having 10/10 pain in her back and foot because of the infection . Patient reports some relief from pain when she first takes the Methadone and when PRN pain meds are administered. Will notify Karen SOTO of patient's pain concerns. She reports having a mild h/a last night, currently denies. She reports barely sleeping last night. She does not feel any of her current symptoms are r/t withdrawal, but moreso d/t the pain from her infection. She feels the current dose of Methadone is effective. Patient reports she is scheduled to have an abscess in her back drained on Saturday. She is aware of the tentative plan for her to DC to STR for nursing home IV antibiotics and additional recovery supports will be an option to continue. RN went in to provide PRN pain med as I finished visiting with the patient. Discussed with Savita Quintanilla APRN.
[2023-09-21] MEDS: HYDROmorphone HCl 1 MG/ML SYRINGE 2 MG IVPUSH ×2 (13:44→17:47)
[2023-09-21 14:58] VITALS: BP 169/90; PULSE 68; RESP 20; TEMP 37.5; O2SAT 99
[2023-09-21] MEDS: HYDROmorphone HCl 2 MG/ML VIAL IVPUSH (19:20)
[2023-09-21 20:00] VITALS: BP 130/60; PULSE 80; RESP 18; TEMP 36.7; O2SAT 97
[2023-09-21] MEDS: cloNIDine HCL 0.1 MG TABLET PO (20:20)
[2023-09-22] MEDS: HYDROmorphone HCl 1 MG/ML SYRINGE 2 MG IVPUSH ×5 (02:03→23:23)
[2023-09-22] MEDS: ceFAZolin Sodium/Dextrose,Iso 2 GM/50 ML PIGGYBACK IV ×3 (02:06→17:26)
[2023-09-22 02:36] VITALS: BP 121/69; PULSE 57; RESP 17; TEMP 36.7; O2SAT 94
[2023-09-22] MEDS: Melatonin 3 MG TABLET 6 MG PO (02:41)
[2023-09-22] MEDS: oxyCODONE HCl Immed Release 5 MG TABLET 10 MG PO ×3 (04:24→20:27)
[2023-09-22 07:02] VITALS: BP 118/72; PULSE 62; RESP 20; TEMP 36.9; O2SAT 95
--- NOTE | 2023-09-22 09:02 | P.PNIM_ITS ---
Subjective Subjective Date of Service: 09/22/23 Interval History: Anxious, restless legs Painful foot + mid-back No fever BCx from 09/21 still positive Review of Systems Review of Systems: Yes all other systems are reviewed and are negative Physical Exam 2 Vital Signs: Vital Signs: Last Vital Signs Temp 98.5 F 09/22/23 07:02 Pulse 62 09/22/23 07:02 Resp 20 09/22/23 07:02 BP 118/72 09/22/23 07:02 Pulse Ox 95 09/22/23 07:02 O2 Del Method Room Air 09/22/23 07:02 BMI result Body Mass Index 22.8 Gen: NAD HEENT: sclera anicteric, moist mucus membranes Neck: supple Lungs: clear to auscultation bilaterally Heart: regular rate and rhythm, no murmurs Abd: soft, non-tender, non-distended Back: mid-thoracic tenderness Ext: no edema Skin: warm/well-perfused, R medial foot with erythema and swelling, L thigh with developing phlegmon without erythema or drainage Neuro: alert and oriented x3, no focal weakness Psych: appropriate affect Objective Data Active Medications Acetaminophen (Acetaminophen 325 Mg Tablet) 650 mg PO Q6H PRN PRN Reason: Pain, Mild (Pain Scale 1-3) Last Admin: 09/20/23 20:45 Dose: 650 mg Documented By: JOYCE Clonidine HCl (Clonidine Hcl 0.1 Mg Tablet) 0.1 mg PO BEDTIME [facility]; Protocol Last Admin: 09/21/23 20:20 Dose: 0.1 mg Documented By: REESE Enoxaparin Sodium (Enoxaparin Sodium 40 Mg/0.4 Ml Syringe) 40 mg SUBCUT Q24H [facility] Last Admin: 09/21/23 07:31 Dose: 40 mg Documented By: KIRSTIN Ferrous Sulfate (Ferrous Sulfate 324 Mg Tablet.) 324 mg PO DAILY [facility] Last Admin: 09/21/23 07:31 Dose: 324 mg Documented By: KIRSTIN Hydromorphone HCl (Hydromorphone Hcl 1 Mg/Ml Syringe) 2 mg IVPUSH Q4H PRN; Protocol PRN Reason: severe pain Last Admin: 09/22/23 07:04 Dose: 2 mg Documented By: KIRSTIN Hydromorphone HCl (Hydromorphone Hcl 2 Mg/Ml Vial) 2 mg IVPUSH ONCE PRN; Protocol PRN Reason: pain control in MRI Last Admin: 09/21/23 19:20 Dose: 2 mg Documented By: REESE Cefazolin Sodium/Dextrose (Ancef) 2 gm in 50 mls @ 100 mls/hr IV Q8H [facility] Last Infusion: 09/22/23 02:38 Dose: Infused Documented By: REESE Melatonin (Melatonin 3 Mg Tablet) 6 mg PO BEDTIME PRN PRN Reason: Insomnia Last Admin: 09/22/23 02:41 Dose: 6 mg Documented By: REESE Methadone HCl (Methadone Hcl 20 Mg/2 Ml Oral.Conc) 45 mg PO DAILY [facility] Last Admin: 09/21/23 07:31 Dose: 45 mg Documented By: KIRSTIN Nicotine (Nicotine 21 Mg Patch.Td24) 21 mg TRANSDERMA DAILY [facility] Last Admin: 09/21/23 07:32 Dose: 21 mg Documented By: KIRSTIN Ondansetron HCl (Ondansetron Hcl 4 Mg/2 Ml Vial) 4 mg IVPUSH Q8H PRN PRN Reason: Nausea and Vomiting Last Admin: 09/19/23 10:02 Dose: 4 mg Documented By: LILLY Oxycodone HCl (Oxycodone Hcl Immed Release 5 Mg Tablet) 10 mg PO Q4H PRN PRN Reason: Pain, Moderate(Pain Scale 4-6) Last Admin: 09/22/23 04:24 Dose: 10 mg Documented By: REESE Sodium Chloride (0.9 % Sodium Chloride Flush 3 Ml Syringe) 3 ml IVFLUSH QSHIFT [facility] Last Admin: 09/22/23 07:59 Dose: Not Given Documented By: KIRSTIN Non-Admin Reason: Previously Administered Trazodone HCl (Trazodone Hcl 50 Mg Tablet) 50 mg PO BEDTIME PRN PRN Reason: sleep Labs 09/21/23 06:01 09/21/23 06:01 Labs: Impressions Ankle MRI 09/21/23 12:30 IMPRESSION: 1. Patchy marrow edema within the distal tibia and fibula as well as within the talus and calcaneus. Moderate tibiotalar and posterior subtalar joint effusions with synovitis. Findings could indicate an infectious or inflammatory arthropathy in the appropriate clinical setting. 2. Patchy marrow edema throughout the remaining midfoot and within the 2nd through 4th proximal metatarsals without an associated fracture line. Findings could represent stress reactions or osseous contusions. These areas demonstrate mild postcontrast enhancement and osteomyelitis cannot be entirely excluded. 3. Prominent circumferential subcutaneous edema with mild postcontrast enhancement. Findings could represent cellulitis. No organized fluid collection or abscess formation. Foot MRI 09/21/23 12:37 IMPRESSION: 1. Patchy marrow edema within the distal tibia and fibula as well as within the talus and calcaneus. Moderate tibiotalar and posterior subtalar joint effusions with synovitis. Findings could indicate an infectious or inflammatory arthropathy in the appropriate clinical setting. 2. Patchy marrow edema throughout the remaining midfoot and within the 2nd through 4th proximal metatarsals without an associated fracture line. Findings could represent stress reactions or osseous contusions. These areas demonstrate mild postcontrast enhancement and osteomyelitis cannot be entirely excluded. 3. Prominent circumferential subcutaneous edema with mild postcontrast enhancement. Findings could represent cellulitis. No organized fluid collection or abscess formation. Microbiology Microbiology Results: Microbiology 09/21/23 06:00 Blood Culture - Preliminary Blood - Venous Prelim: GPC Gram Stain only 09/21/23 06:00 Blood Culture - Preliminary Blood - Venous Prelim: GPC Gram Stain only 09/19/23 02:56 Blood Culture - Final Blood - Venous Staphylococcus aureus 09/19/23 02:56 Blood Culture - Final Blood - Venous Staphylococcus aureus Assessment and Plan (1) Sepsis: Status: Acute Plan d4 42yo F with OUD presenting with R foot cellulitis, found to have MSSA bacteremia + T6-T7 osteomyelitis/diskitis/paravertebral abscess MSSA bacteremia, persistent T6-T7 osteomyelitis/diskitis/paravertebral abscess cellulitis and septic arthritis and likely osteomyelitis of R foot phlegmon L thigh - IV vanc + pip/carina 09/09-09/21, changed to cefazolin 09/21, plan total 6 wk from 1st negative culture but she is still bacteremic, recheck BCx 09/23 and if still positive may need JEFFREY, ID following - TTE 09/20/23: 1. Normal LV ejection fraction 60 65% 2. No obvious evidence of vegetations on this study 3. Mildly dilated left atrium 4. Mildly elevated right uncle systolic pressure and mildly elevated right atrial pressures 5. No gross pericardial effusion - ordered CT-guided drainage of paravertebral abscess ordered for 09/23; NPO after midnight 09/23 - pain control with PO oxycodone + IV hydromorphone OUD - Addiction Medicine consulted, switched Suboxone to methadone, to increase dose today tobacco abuse - NRT HCV - viral load pending, needs outpt treatment VTE ppx - LMWH on hold for CT-guided drainage dispo - will need STR x close to 6 wk In my clinical judgment, the patient requires continued hospitalization for the following reasons: IV ABX, abscess drainage, persistent bacteremia Time Spent With Patient Time: Total time managing care of this patient today ___45_ minutes. Quality Stroke Does the patient have a stroke diagnosis?: No VTE Prior VTE?: No VTE Risk Level:: Medical - moderate - high VTE Device Contraindication: Treatment Not Indicated VTE Drug Contraindication: N/A - Med Ordered
[2023-09-22] MEDS: methADONE HCl 20 MG/2 ML ORAL.CONC 55 MG PO (09:46)
[2023-09-22] MEDS: Nicotine 21 MG PATCH.TD24 TRANSDERMA (09:46)
[2023-09-22] MEDS: Ferrous Sulfate 324 MG TABLET.DR PO (09:46)
--- NOTE | 2023-09-22 10:44 | PM.EVENT ---
Event Note Date of Service: 09/22/23 Event Note: Addiction note Notified by attending that patient was reporting restless legs and anxiety. Methadone dose currently 45mg Plan: Increase methadone dose to 55mg daily RN aware Time Spent With Patient Time: Total time managing care of this patient today ____ minutes.
--- NOTE | 2023-09-22 13:44 | MHC.RECOVRN ---
Met with patient in room 352-1. She appears more comfortable today. She is in bed, but more awake. Boyfriend walking around in room. She reports feeling sweaty, but otherwise denies s/s of withdrawal. Still having some pain in her back, but states it's more tolerable today. Methadone dose increased this AM to 55mg- patient states this is a good dose for me. This is the best I've felt in a while. Discussed with Savita Quintanilla APRN.
[2023-09-22 14:44] VITALS: BP 160/90; PULSE 62; RESP 20; TEMP 36.6; O2SAT 97
[2023-09-22] MEDS: 0.9 % Sodium Chloride Flush 3 ML SYRINGE IVFLUSH ×2 (15:32→20:19)
[2023-09-22] MEDS: Gabapentin 100 MG CAPSULE 200 MG PO (16:12)
[2023-09-22 20:00] VITALS: BP 153/94; PULSE 71; RESP 20; TEMP 36.9; O2SAT 93
[2023-09-22] MEDS: cloNIDine HCL 0.1 MG TABLET PO (20:18)
[2023-09-22] MEDS: traZODone HCL 50 MG TABLET PO (20:18)
[2023-09-23] MEDS: ceFAZolin Sodium/Dextrose,Iso 2 GM/50 ML PIGGYBACK IV ×3 (01:30→18:04)
[2023-09-23 04:00] VITALS: BP 134/79; PULSE 56; RESP 18; O2SAT 93
[2023-09-23] MEDS: HYDROmorphone HCl 1 MG/ML SYRINGE 2 MG IVPUSH ×4 (05:39→19:59)
[2023-09-23 05:58] LABS: Hematocrit 33.4 % (37.0-47.0); Hemoglobin 10.3 g/dl (12.0-16.0); Mean Corpuscular HGB Conc 30.8 g/dl (31.0-35.0); Mean Corpuscular Hemoglobin 27.2 pg (27.0-33.0); Mean Corpuscular Volume 88.1 fL (80.0-98.0); Mean Platelet Volume 9.1 fL (9.4-12.3); Platelet Count 384 X10*3/uL (160-400); Red Blood Count 3.79 X10*6/uL (4.20-5.50); Red Cell Distribution Width 15.2 % (11.0-16.0); White Blood Count 12.7 X10*3/uL (4.8-10.8)
[2023-09-23 06:15] LABS: Anion Gap 13 (12-20); Blood Urea Nitrogen 11 mg/dL (9-16); Calcium 9.1 mg/dL (8.4-10.2); Carbon Dioxide 28 mmol/L (22-29); Chloride 102 mmol/L (96-108); Creatinine Clr Calc Pharmacy 80.2; Estimated Glomerular Filt Rate > 60; Glucose Random 97 mg/dL (60-115); Potassium 4.2 mmol/L (3.3-5.1); Sodium 139 mmol/L (135-145)
[2023-09-23 07:24] VITALS: BP 137/87; PULSE 52; RESP 18; TEMP 36.7; O2SAT 96
[2023-09-23] MEDS: 0.9 % Sodium Chloride Flush 3 ML SYRINGE IVFLUSH ×3 (08:26→19:53)
[2023-09-23] MEDS: Gabapentin 100 MG CAPSULE 200 MG PO (08:26)
[2023-09-23] MEDS: Nicotine 21 MG PATCH.TD24 TRANSDERMA (08:26)
[2023-09-23] MEDS: Ferrous Sulfate 324 MG TABLET.DR PO (08:26)
[2023-09-23] MEDS: methADONE HCl 20 MG/2 ML ORAL.CONC 55 MG PO (08:27)
[2023-09-23] MEDS: oxyCODONE HCl Immed Release 5 MG TABLET 10 MG PO ×2 (08:33→16:35)
--- NOTE | 2023-09-23 09:41 | P.PNIM_ITS ---
Subjective Subjective Date of Service: 09/23/23 Interval History: NPO scheduled for CT-guided drainage of paravertebral abscess by IR, denies fever chills complaining of midback pain, no nausea, no vomiting, no lightheadedness or dizziness, no other acute issues, blood cultures x2 pending. Review of Systems All other system reviewed and negative. Physical Exam 2 Vital Signs: Vital Signs: Last Vital Signs Temp 98.0 F 09/23/23 07:24 Pulse 52 09/23/23 07:24 Resp 18 09/23/23 07:24 BP 137/87 09/23/23 07:24 Pulse Ox 96 09/23/23 07:24 O2 Del Method Room Air 09/23/23 07:24 BMI result Body Mass Index 22.8 Const: Other: Gen: Resting comfortably, no acute distress HEENT: sclera anicteric Neck: no jvd Lungs: clear to auscultation bilaterally, no wheeze, Heart: regular rate and rhythm, no murmurs Abd: soft, non-tender, non-distended no rhonchi, bowel sounds audible Back: mid-thoracic tenderness Ext: no edema Skin: warm/well-perfused, R medial foot with erythema and swelling, L thigh phlegmon without erythema or drainage Neuro: alert and oriented x3, no focal weakness Psych: appropriate affect Objective Data Active Medications Acetaminophen (Acetaminophen 325 Mg Tablet) 650 mg PO Q6H PRN PRN Reason: Pain, Mild (Pain Scale 1-3) Last Admin: 09/20/23 20:45 Dose: 650 mg Documented By: JOYCE Clonidine HCl (Clonidine Hcl 0.1 Mg Tablet) 0.1 mg PO BEDTIME [facility]; Protocol Last Admin: 09/22/23 20:18 Dose: 0.1 mg Documented By: PARTH Enoxaparin Sodium (Enoxaparin Sodium 40 Mg/0.4 Ml Syringe) 40 mg SUBCUT Q24H [facility] Last Admin: 09/21/23 07:31 Dose: 40 mg Documented By: KIRSTIN Ferrous Sulfate (Ferrous Sulfate 324 Mg Tablet.) 324 mg PO DAILY [facility] Last Admin: 09/23/23 08:26 Dose: 324 mg Documented By: WONG Gabapentin (Gabapentin 100 Mg Capsule) 200 mg PO DAILY [facility] Last Admin: 09/23/23 08:26 Dose: 200 mg Documented By: WONG Hydromorphone HCl (Hydromorphone Hcl 2 Mg/Ml Vial) 2 mg IVPUSH ONCE PRN; Protocol PRN Reason: pain control in MRI Last Admin: 09/21/23 19:20 Dose: 2 mg Documented By: REESE Hydromorphone HCl (Hydromorphone Hcl 1 Mg/Ml Syringe) 2 mg IVPUSH Q3H PRN; Protocol PRN Reason: severe pain Last Admin: 09/23/23 05:39 Dose: 2 mg Documented By: PARTH Cefazolin Sodium/Dextrose (Ancef) 2 gm in 50 mls @ 100 mls/hr IV Q8H [facility] Last Admin: 09/23/23 09:20 Dose: 100 mls/hr Documented By: WONG Melatonin (Melatonin 3 Mg Tablet) 6 mg PO BEDTIME PRN PRN Reason: Insomnia Last Admin: 09/22/23 02:41 Dose: 6 mg Documented By: REESE Methadone HCl (Methadone Hcl 20 Mg/2 Ml Oral.Conc) 55 mg PO DAILY [facility] Last Admin: 09/23/23 08:27 Dose: 55 mg Documented By: WONG Nicotine (Nicotine 21 Mg Patch.Td24) 21 mg TRANSDERMA DAILY [facility] Last Admin: 09/23/23 08:26 Dose: 21 mg Documented By: WONG Ondansetron HCl (Ondansetron Hcl 4 Mg/2 Ml Vial) 4 mg IVPUSH Q8H PRN PRN Reason: Nausea and Vomiting Last Admin: 09/19/23 10:02 Dose: 4 mg Documented By: LILLY Oxycodone HCl (Oxycodone Hcl Immed Release 5 Mg Tablet) 10 mg PO Q4H PRN PRN Reason: Pain, Moderate(Pain Scale 4-6) Last Admin: 09/23/23 08:33 Dose: 10 mg Documented By: WONG Sodium Chloride (0.9 % Sodium Chloride Flush 3 Ml Syringe) [facility] Last Admin: 09/23/23 08:26 Dose: 3 ml Documented By: WONG Trazodone HCl (Trazodone Hcl 50 Mg Tablet) 50 mg PO BEDTIME PRN PRN Reason: sleep Last Admin: 09/22/23 20:18 Dose: 50 mg Documented By: PARTH Labs 09/23/23 05:33 09/23/23 05:33 Labs: Laboratory Results - last 24 hr 09/23/23 05:33 MCV 88.1 MCH 27.2 MCHC 30.8 L RDW 15.2 Plt Count 384 D MPV 9.1 L Absolute Nucleated RBC 0.000 Nucleated RBC % (auto) 0.0 Anion Gap 13 Estim Creat Clear Calc 80.2 Estimated GFR > 60 Random Glucose 97 Calcium 9.1 Microbiology Microbiology Results: Microbiology 09/21/23 06:00 Blood Culture - Preliminary Blood - Venous Staphylococcus aureus 09/21/23 06:00 Blood Culture - Preliminary Blood - Venous Staphylococcus aureus Assessment and Plan (1) Sepsis: Status: Acute Plan 42yo F with OUD presenting with R foot cellulitis, found to have MSSA bacteremia + T6-T7 osteomyelitis/diskitis/paravertebral abscess MSSA bacteremia, persistent T6-T7 osteomyelitis/diskitis/paravertebral abscess Right foot and ankle MRI concerning for cellulitis and septic arthritis and likely osteomyelitis of R foot. phlegmon L thigh - IV vanc + pip/carina 09/09-09/21, changed to cefazolin 09/21, plan total 6 wk from 1st negative culture , BCx 2 from toay 09/23 pending and if still positive may need JEFFREY, ID following - TTE 09/20/23: 1. Normal LV ejection fraction 60 65% 2. No obvious evidence of vegetations on this study 3. Mildly dilated left atrium 4. Mildly elevated right uncle systolic pressure and mildly elevated right atrial pressures 5. No gross pericardial effusion - scheduled for CT-guided drainage of paravertebral abscess today. - good pain control with PO oxycodone + IV hydromorphone OUD - Addiction Medicine consulted, switched Suboxone to methadone. tobacco abuse - NRT HCV - viral load pending, needs outpt treatment VTE ppx - LMWH on hold for CT-guided drainage dispo - will need STR x close to 6 wk In my clinical judgment, the patient requires continued hospitalization for the following reasons: IV ABX, abscess drainage, persistent bacteremia Time Spent With Patient Time: Total time managing care of this patient today ____ minutes. Quality Stroke Does the patient have a stroke diagnosis?: No VTE Prior VTE?: No VTE Risk Level:: Medical - moderate - high VTE Device Contraindication: Treatment Not Indicated VTE Drug Contraindication: N/A - Med Ordered
[2023-09-23 14:39] VITALS: BP 134/92; PULSE 61; RESP 18; TEMP 36.6; O2SAT 95
[2023-09-23 14:53] LABS: UPreg QC Valid YES; Urine Pregnancy NEGATIVE (NEGATIVE)
--- NOTE | 2023-09-23 14:56 | PC.NURSE ---
report given to [facility] at this time.
--- NOTE | 2023-09-23 15:09 | MHC.CM.PN ---
per rounds pt having drainage not ready for dc ..dc plan remanins str for iv antibiotics
[2023-09-23 16:25] VITALS: PULSE 68; RESP 20; O2SAT 93
[2023-09-23 16:41] VITALS: BP 145/95; PULSE 66; RESP 20; O2SAT 98
[2023-09-23] MEDS: Acetaminophen 325 MG TABLET 650 MG PO (16:56)
[2023-09-23] MEDS: traZODone HCL 50 MG TABLET PO (19:53)
[2023-09-23] MEDS: cloNIDine HCL 0.1 MG TABLET PO (19:53)
[2023-09-23 20:00] VITALS: BP 100/58; PULSE 52; RESP 19; TEMP 36; O2SAT 95
[2023-09-24] MEDS: ceFAZolin Sodium/Dextrose,Iso 2 GM/50 ML PIGGYBACK IV ×3 (01:42→18:46)
[2023-09-24] MEDS: HYDROmorphone HCl 1 MG/ML SYRINGE 2 MG IVPUSH ×4 (01:45→17:35)
[2023-09-24 03:04] VITALS: BP 101/64; PULSE 53; RESP 16; TEMP 36; O2SAT 96
--- NOTE | 2023-09-24 03:59 | PC.NURSE ---
lab sent a message at 0230 re blood culture done on 09/23 with one bottle + GPC in clumps and on gram stain, Dr. Perez was notified.
[2023-09-24 07:16] VITALS: BP 145/86; PULSE 52; RESP 16; TEMP 36.6; O2SAT 98
[2023-09-24] MEDS: Nicotine 21 MG PATCH.TD24 TRANSDERMA (08:01)
[2023-09-24] MEDS: Ferrous Sulfate 324 MG TABLET.DR PO (08:01)
[2023-09-24] MEDS: Gabapentin 100 MG CAPSULE 200 MG PO (08:01)
[2023-09-24] MEDS: methADONE HCl 20 MG/2 ML ORAL.CONC 55 MG PO (08:02)
[2023-09-24] MEDS: 0.9 % Sodium Chloride Flush 3 ML SYRINGE IVFLUSH ×3 (08:02→17:36)
--- NOTE | 2023-09-24 12:55 | HO.PM.IMPN ---
Subjective Subjective Date of Service: 09/24/23 Interval History: Being followed for persistent bacteremia patient awake alert, overall feels better complaining of left foot pain, left thigh swelling is coming down as per patient only hurts when she lies on it, denies fever, chills, tolerating diet no nausea, no vomiting, no abdominal pain, no diarrhea. Review of Systems All other system reviewed and negative. Physical Exam Vital Signs: Vital Signs: Last Vital Signs Temp 97.8 F 09/24/23 07:16 Pulse 52 09/24/23 07:16 Resp 16 09/24/23 07:16 BP 145/86 H 09/24/23 07:16 Pulse Ox 98 09/24/23 07:16 O2 Del Method Room Air 09/24/23 07:16 BMI result Body Mass Index 22.8 Const: Other: Gen: Resting comfortably, no acute distress HEENT: sclera anicteric Neck: no jvd Lungs: clear to auscultation bilaterally, no wheeze, Heart: regular rate and rhythm, no murmurs Abd: soft, non-tender, non-distended, no rhonchi, bowel sounds audible Back: mild tenderness at site of IR drainage right mid thorax, no swelling ,no warmth ,or thenderness . Ext: no edema Skin: warm/well-perfused, R medial foot erythema and swelling improving, less tenderness, L thigh phlegmon improving no warmth,no tenderness Neuro: alert and oriented x3, no focal weakness. Psych: appropriate affect Objective Data Active Medications Acetaminophen (Acetaminophen 325 Mg Tablet) 650 mg PO Q6H PRN PRN Reason: Pain, Mild (Pain Scale 1-3) Last Admin: 09/23/23 16:56 Dose: 650 mg Documented By: WONG Clonidine HCl (Clonidine Hcl 0.1 Mg Tablet) 0.1 mg PO BEDTIME [facility]; Protocol Last Admin: 09/23/23 19:53 Dose: 0.1 mg Documented By: PARTH Enoxaparin Sodium (Enoxaparin Sodium 40 Mg/0.4 Ml Syringe) 40 mg SUBCUT Q24H [facility] Last Admin: 09/21/23 07:31 Dose: 40 mg Documented By: KIRSTIN Ferrous Sulfate (Ferrous Sulfate 324 Mg Tablet.) 324 mg PO DAILY [facility] Last Admin: 09/24/23 08:01 Dose: 324 mg Documented By: TEE Gabapentin (Gabapentin 100 Mg Capsule) 200 mg PO DAILY [facility] Last Admin: 09/24/23 08:01 Dose: 200 mg Documented By: TEE Hydromorphone HCl (Hydromorphone Hcl 2 Mg/Ml Vial) 2 mg IVPUSH ONCE PRN; Protocol PRN Reason: pain control in MRI Last Admin: 09/21/23 19:20 Dose: 2 mg Documented By: REESE Hydromorphone HCl (Hydromorphone Hcl 1 Mg/Ml Syringe) 2 mg IVPUSH Q3H PRN; Protocol PRN Reason: severe pain Last Admin: 09/24/23 08:15 Dose: 2 mg Documented By: TEE Cefazolin Sodium/Dextrose (Ancef) 2 gm in 50 mls @ 100 mls/hr IV Q8H [facility] Last Infusion: 09/24/23 10:37 Dose: Infused Documented By: TEE Melatonin (Melatonin 3 Mg Tablet) 6 mg PO BEDTIME PRN PRN Reason: Insomnia Last Admin: 09/22/23 02:41 Dose: 6 mg Documented By: REESE Methadone HCl (Methadone Hcl 20 Mg/2 Ml Oral.Conc) 55 mg PO DAILY [facility] Last Admin: 09/24/23 08:02 Dose: 55 mg Documented By: TEE Nicotine (Nicotine 21 Mg Patch.Td24) 21 mg TRANSDERMA DAILY [facility] Last Admin: 09/24/23 08:01 Dose: 21 mg Documented By: TEE Ondansetron HCl (Ondansetron Hcl 4 Mg/2 Ml Vial) 4 mg IVPUSH Q8H PRN PRN Reason: Nausea and Vomiting Last Admin: 09/19/23 10:02 Dose: 4 mg Documented By: LILLY Sodium Chloride (0.9 % Sodium Chloride Flush 3 Ml Syringe) [facility] Last Admin: 09/24/23 08:02 Dose: 3 ml Documented By: TEE Trazodone HCl (Trazodone Hcl 50 Mg Tablet) 50 mg PO BEDTIME PRN PRN Reason: sleep Last Admin: 09/23/23 19:53 Dose: 50 mg Documented By: CASTILM Labs 09/23/23 05:33 09/23/23 05:33 Labs: Laboratory Results - last 24 hr 09/23/23 14:35 Urine Test NEGATIVE Microbiology Microbiology Results: Microbiology 09/21/23 06:00 Blood Culture - Final Blood - Venous Staphylococcus aureus 09/21/23 06:00 Blood Culture - Final Blood - Venous Staphylococcus aureus 09/23/23 16:14 Gram Stain - Final Abscess Intra-abdominal Routine Culture - Preliminary Culture in progress. Anaerobic Culture - Preliminary Culture in progress. 09/23/23 05:33 Blood Culture - Preliminary Blood - Venous 09/23/23 05:33 Blood Culture - Preliminary Blood - Venous Prelim: GPC Gram Stain only Assessment and Plan (1) Sepsis: Status: Acute Plan 42yo F with OUD presenting with R foot cellulitis, found to have MSSA bacteremia + T6-T7 osteomyelitis/diskitis/paravertebral abscess MSSA bacteremia, persistent T6-T7 osteomyelitis/diskitis/paravertebral abscess Right foot and ankle MRI concerning for cellulitis and septic arthritis and likely osteomyelitis of R foot. phlegmon L thigh - IV vanc + pip/carina 09/09-09/21, changed to cefazolin 09/21, plan total 6 wk from 1st negative culture , BC 09/23 1/2 positive for Gram-positive cocci Of Case discussed with ID she recommend to continue IV cefazolin and add IV vancomycin will continue current antibiotic and repeat blood cultures since we have source of infection will hold off on JEFFREY Echocardiogram showed 1. Normal LV ejection fraction 60 65% 2. No obvious evidence of vegetations on this study 3. Mildly dilated left atrium 4. Mildly elevated right uncle systolic pressure and mildly elevated right atrial pressures 5. No gross pericardial effusion - s/p CT-guided drainage of paravertebral abscess 09/23 Gram stain culture sensitivity pending - good pain control with PO oxycodone + IV hydromorphone OUD - Addiction Medicine consulted, switched Suboxone to methadone. tobacco abuse - NRT HCV - viral load pending, needs outpt treatment VTE ppx - resume Lovenox dispo - will need STR x close to 6 wk In my clinical judgment, the patient requires continued hospitalization for the following reasons: IV ABX, abscess drainage, persistent bacteremia Time Spent With Patient Time: Total time managing care of this patient today ____ minutes. Quality Stroke Does the patient have a stroke diagnosis?: No VTE Prior VTE?: No VTE Risk Level:: Medical - moderate - high VTE Device Contraindication: Treatment Not Indicated VTE Drug Contraindication: N/A - Med Ordered
[2023-09-24] MEDS: vancomycin HCL 1,500 MG in 0.9 % Sodium Chloride 500 ML 333.33 MG IV (15:18)
[2023-09-24 15:19] VITALS: BP 139/88; PULSE 60; RESP 18; TEMP 36.1; O2SAT 98
--- NOTE | 2023-09-24 15:25 | HO.ADDICTPRO ---
Subjective Subjective Date of Service: 09/24/23 Reason For Visit: Foot infection Interim History: Patient seen in follow up. Awake, alert, pleasant and engaged in interview. Reports feeling much better today. Challenging afternoon when she had procedure to drain abscess in her back--she reports it being very painful. In regards to methadone, she would like to increase dose a bit more--still experiencing some restlessness. Review of Systems Acute medical concerns: Yes Diagnostics Vital Signs (24Hr): Vital Signs - 24 hr 09/23/23 16:25 09/23/23 16:41 09/23/23 20:00 Temperature 96.8 F Pulse Rate 68 66 52 Respiratory Rate 20 20 19 Blood Pressure 145/95 H 100/58 L Pulse Oximetry 93 98 95 Oxygen Delivery Method Room Air Room Air Room Air 09/24/23 03:04 09/24/23 07:16 09/24/23 15:19 Temperature 96.8 F 97.8 F 97.0 F Pulse Rate 53 52 60 Respiratory Rate 16 16 18 Blood Pressure 101/64 145/86 H 139/88 Pulse Oximetry 96 98 98 Oxygen Delivery Method Room Air Room Air Room Air BMI result Body Mass Index 22.8 Labs 09/23/23 05:33 09/23/23 05:33 Labs: Laboratory Results - last 48 hr 09/23/23 09/23/23 05:33 14:35 WBC 12.7 H RBC 3.79 L Hgb 10.3 L Hct 33.4 L MCV 88.1 MCH 27.2 MCHC 30.8 L RDW 15.2 Plt Count 384 D MPV 9.1 L Absolute Nucleated RBC 0.000 Nucleated RBC % (auto) 0.0 Sodium 139 Potassium 4.2 Chloride 102 Carbon Dioxide 28 Anion Gap 13 BUN 11 Creatinine 0.67 Estim Creat Clear Calc 80.2 Estimated GFR > 60 Random Glucose 97 Calcium 9.1 Urine Test NEGATIVE Imaging Radiology Impressions: ITS Impressions Ankle X-Ray 09/19/23 01:36 IMPRESSION: Soft tissue swelling about the ankle and along the dorsum of the foot. No acute osseous findings identified in the right ankle or foot. Foot X-Ray 09/19/23 01:36 IMPRESSION: Soft tissue swelling about the ankle and along the dorsum of the foot. No acute osseous findings identified in the right ankle or foot. Cervical Spine X-Ray 09/19/23 15:14 FINDINGS/IMPRESSION: Limited single view only AP exam. Within the limitations vertebral body heights and disc space heights appear maintained however recommend correlation with lateral radiographs. Visualized portion of the upper lungs appear unremarkable. Soft tissues are grossly unremarkable. Lumbar Spine X-Ray 09/19/23 15:14 IMPRESSION: Vertebral body heights and disc space heights are maintained. Thoracic Spine X-Ray 09/19/23 15:14 IMPRESSION: Vertebral body heights and disc space heights are maintained. Thoracic Spine MRI 09/20/23 13:15 IMPRESSION: - Imaging findings favor osteomyelitis discitis at T6-T7 with a probable superimposed acute upper endplate fracture at T7. There is a large peripherally enhancing paravertebral collection on the right greater than left side at T6-T7, most likely reflecting a paravertebral abscess, measuring up to 4.4 cm TV by 3.7 cm AP. This peripherally enhancing collection results in mass effect on the azygos vein. Enhancement along the periphery of the collection most likely reflects phlegmon and there are small bilateral pleural effusions. I confirmed clinically that there was concern for spinal infection. - No definite epidural collections with assessment very limited by the degree of motion artifact on this study. There is no thoracic cord compression. Findings discussed with Jovani Avelar at 4:11 PM on 09/20/2023. Ankle MRI 09/21/23 12:30 IMPRESSION: 1. Patchy marrow edema within the distal tibia and fibula as well as within the talus and calcaneus. Moderate tibiotalar and posterior subtalar joint effusions with synovitis. Findings could indicate an infectious or inflammatory arthropathy in the appropriate clinical setting. 2. Patchy marrow edema throughout the remaining midfoot and within the 2nd through 4th proximal metatarsals without an associated fracture line. Findings could represent stress reactions or osseous contusions. These areas demonstrate mild postcontrast enhancement and osteomyelitis cannot be entirely excluded. 3. Prominent circumferential subcutaneous edema with mild postcontrast enhancement. Findings could represent cellulitis. No organized fluid collection or abscess formation. Foot MRI 09/21/23 12:37 IMPRESSION: 1. Patchy marrow edema within the distal tibia and fibula as well as within the talus and calcaneus. Moderate tibiotalar and posterior subtalar joint effusions with synovitis. Findings could indicate an infectious or inflammatory arthropathy in the appropriate clinical setting. 2. Patchy marrow edema throughout the remaining midfoot and within the 2nd through 4th proximal metatarsals without an associated fracture line. Findings could represent stress reactions or osseous contusions. These areas demonstrate mild postcontrast enhancement and osteomyelitis cannot be entirely excluded. 3. Prominent circumferential subcutaneous edema with mild postcontrast enhancement. Findings could represent cellulitis. No organized fluid collection or abscess formation. Needle Aspiration CT 09/23/23 17:01 IMPRESSION: 1. Successful ultrasound-guided right paravertebral aspiration performed. However, no significant puss could be obtained; this may be due to a very thick collection in this region. 2. If there is any further drainage and aspiration of abscess performed this will need anesthesia intervention. Medications Medications Current Medications Acetaminophen (Acetaminophen 325 Mg Tablet) 650 mg PO Q6H PRN PRN Reason: Pain, Mild (Pain Scale 1-3) Last Admin: 09/23/23 16:56 Dose: 650 mg Clonidine HCl (Clonidine Hcl 0.1 Mg Tablet) 0.1 mg PO BEDTIME [facility]; Protocol Last Admin: 09/23/23 19:53 Dose: 0.1 mg Enoxaparin Sodium (Enoxaparin Sodium 40 Mg/0.4 Ml Syringe) 40 mg SUBCUT Q24H [facility] Last Admin: 09/21/23 07:31 Dose: 40 mg Ferrous Sulfate (Ferrous Sulfate 324 Mg Tablet.Dr) 324 mg PO DAILY [facility] Last Admin: 09/24/23 08:01 Dose: 324 mg Gabapentin (Gabapentin 100 Mg Capsule) 200 mg PO DAILY [facility] Last Admin: 09/24/23 08:01 Dose: 200 mg Hydromorphone HCl (Hydromorphone Hcl 2 Mg/Ml Vial) 2 mg IVPUSH ONCE PRN; Protocol PRN Reason: pain control in MRI Last Admin: 09/21/23 19:20 Dose: 2 mg Hydromorphone HCl (Hydromorphone Hcl 1 Mg/Ml Syringe) 2 mg IVPUSH Q3H PRN; Protocol PRN Reason: severe pain Last Admin: 09/24/23 14:54 Dose: 2 mg Cefazolin Sodium/Dextrose (Ancef) 2 gm in 50 mls @ 100 mls/hr IV Q8H [facility] Last Infusion: 09/24/23 10:37 Dose: Infused Vancomycin HCl 1,000 mg/ (Sodium Chloride) 270 mls @ 270 mls/hr IV Q8H [facility] Vancomycin HCl 1,500 mg/ (Sodium Chloride) 500 mls @ 333.333 mls/hr IV ONCE ONE Stop: 09/24/23 16:29 Melatonin (Melatonin 3 Mg Tablet) 6 mg PO BEDTIME PRN PRN Reason: Insomnia Last Admin: 09/22/23 02:41 Dose: 6 mg Methadone HCl (Methadone Hcl 20 Mg/2 Ml Oral.Conc) 55 mg PO DAILY [facility] Last Admin: 09/24/23 08:02 Dose: 55 mg Nicotine (Nicotine 21 Mg Patch.Td24) 21 mg TRANSDERMA DAILY [facility] Last Admin: 09/24/23 08:01 Dose: 21 mg Ondansetron HCl (Ondansetron Hcl 4 Mg/2 Ml Vial) 4 mg IVPUSH Q8H PRN PRN Reason: Nausea and Vomiting Last Admin: 09/19/23 10:02 Dose: 4 mg Pharmacy Consult (Consult Rx Vancomycin Dosing) 1 each MISCELLANE DAILY PRN PRN Reason: Consult order Sodium Chloride (0.9 % Sodium Chloride Flush 3 Ml Syringe) 3 ml IVFLUSH QSHIFT [facility] Last Admin: 09/24/23 08:02 Dose: 3 ml Trazodone HCl (Trazodone Hcl 50 Mg Tablet) 50 mg PO BEDTIME PRN PRN Reason: sleep Last Admin: 09/23/23 19:53 Dose: 50 mg Allergies Allergies Allergy/AdvReac Type Severity Reaction Status Date / Time No Known Allergies Allergy Verified 09/12/23 11:29 Assessment & Plan Assessment & Plan (1) Opioid use disorder: Status: Acute Code(s): F11.90 - Opioid use, unspecified, uncomplicated Assessment and Plan: increase methadone to 60mg on 09/25 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
[2023-09-24 15:48] LABS: HCV Log PCR 5.45 Log IU/mL (NOT DETECTED); HepC Viral Load 282000 IU/mL (NOT DETECTED)
[2023-09-24] MEDS: Enoxaparin Sodium 40 MG/0.4 ML SYRINGE SUBCUT (17:27)
[2023-09-24 20:00] VITALS: BP 139/68; PULSE 98; RESP 18; TEMP 36.6; O2SAT 100
[2023-09-24] MEDS: cloNIDine HCL 0.1 MG TABLET PO (21:27)
[2023-09-24] MEDS: Melatonin 3 MG TABLET 6 MG PO (21:27)
[2023-09-25] MEDS: vancomycin HCL 1,000 MG in 0.9 % Sodium Chloride 250 ML 270 MG IV ×4 (00:03→23:50)
[2023-09-25] MEDS: ceFAZolin Sodium/Dextrose,Iso 2 GM/50 ML PIGGYBACK IV ×3 (01:13→18:44)
[2023-09-25 03:55] VITALS: BP 122/69; PULSE 54; RESP 16; TEMP 36.1; O2SAT 97
[2023-09-25] MEDS: HYDROmorphone HCl 1 MG/ML SYRINGE 2 MG IVPUSH ×3 (05:44→16:50)
[2023-09-25 07:18] VITALS: BP 142/77; PULSE 50; RESP 18; TEMP 36.4; O2SAT 96
[2023-09-25 07:23] LABS: Creatinine Clr Calc Pharmacy 86.6; Estimated Glomerular Filt Rate > 60
[2023-09-25] MEDS: methADONE HCl 20 MG/2 ML ORAL.CONC 60 MG PO (07:48)
[2023-09-25] MEDS: Nicotine 21 MG PATCH.TD24 TRANSDERMA (07:49)
[2023-09-25] MEDS: Gabapentin 100 MG CAPSULE 200 MG PO (07:49)
[2023-09-25] MEDS: Ferrous Sulfate 324 MG TABLET.DR PO (07:49)
[2023-09-25] MEDS: 0.9 % Sodium Chloride Flush 3 ML SYRINGE IVFLUSH ×3 (07:49→21:04)
--- NOTE | 2023-09-25 13:50 | HO.PM.IMPN ---
Subjective Subjective Date of Service: 09/25/23 Interval History: Feeling better this morning right foot swelling and pain has significantly improved, left thigh swelling is coming down, good pain control, no fevers, no chills tolerating diet no nausea no vomiting no abdominal pain no other acute issues overnight. Review of Systems All other system reviewed and negative. Physical Exam Vital Signs: Vital Signs: Last Vital Signs Temp 97.6 F 09/25/23 07:18 Pulse 50 09/25/23 07:18 Resp 18 09/25/23 07:18 BP 142/77 H 09/25/23 07:18 Pulse Ox 96 09/25/23 07:18 O2 Del Method Room Air 09/25/23 07:18 BMI result Body Mass Index 22.8 Const: Other: Gen: Resting comfortably, no acute distress HEENT: sclera anicteric Neck: no jvd Lungs: clear to auscultation bilaterally, no wheeze, Heart: regular rate and rhythm, no murmurs Abd: soft, non-tender, non-distended, no rhonchi, bowel sounds audible Back: mild tenderness at site of IR drainage right mid thorax, no swelling ,no warmth ,or thenderness . Ext: no edema Skin: warm/well-perfused, R foot erythema and swelling resolved less tenderness, L thigh phlegmon improving no warmth,no tenderness Neuro: alert and oriented x3, no focal weakness. Psych: appropriate affect Objective Data Active Medications Acetaminophen (Acetaminophen 325 Mg Tablet) 650 mg PO Q6H PRN PRN Reason: Pain, Mild (Pain Scale 1-3) Last Admin: 09/23/23 16:56 Dose: 650 mg Documented By: WONG Clonidine HCl (Clonidine Hcl 0.1 Mg Tablet) 0.1 mg PO BEDTIME [facility]; Protocol Last Admin: 09/24/23 21:27 Dose: 0.1 mg Documented By: JAY Enoxaparin Sodium (Enoxaparin Sodium 40 Mg/0.4 Ml Syringe) 40 mg SUBCUT Q24H [facility] Last Admin: 09/24/23 17:27 Dose: 40 mg Documented By: TEE Ferrous Sulfate (Ferrous Sulfate 324 Mg Tablet.) 324 mg PO DAILY [facility] Last Admin: 09/25/23 07:49 Dose: 324 mg Documented By: TEE Gabapentin (Gabapentin 100 Mg Capsule) 200 mg PO DAILY [facility] Last Admin: 09/25/23 07:49 Dose: 200 mg Documented By: TEE Hydromorphone HCl (Hydromorphone Hcl 2 Mg/Ml Vial) 2 mg IVPUSH ONCE PRN; Protocol PRN Reason: pain control in MRI Last Admin: 09/21/23 19:20 Dose: 2 mg Documented By: REESE Hydromorphone HCl (Hydromorphone Hcl 1 Mg/Ml Syringe) 2 mg IVPUSH Q3H PRN; Protocol PRN Reason: severe pain Last Admin: 09/25/23 12:52 Dose: 2 mg Documented By: TEE Cefazolin Sodium/Dextrose (Ancef) 2 gm in 50 mls @ 100 mls/hr IV Q8H [facility] Last Infusion: 09/25/23 11:38 Dose: Infused Documented By: TEE Vancomycin HCl 1,000 mg/ (Sodium Chloride) 270 mls @ 270 mls/hr IV Q8H [facility] Last Infusion: 09/25/23 09:45 Dose: Infused Documented By: TEE Melatonin (Melatonin 3 Mg Tablet) 6 mg PO BEDTIME PRN PRN Reason: Insomnia Last Admin: 09/24/23 21:27 Dose: 6 mg Documented By: JAY Methadone HCl (Methadone Hcl 20 Mg/2 Ml Oral.Conc) 60 mg PO DAILY [facility] Last Admin: 09/25/23 07:48 Dose: 60 mg Documented By: TEE Nicotine (Nicotine 21 Mg Patch.Td24) 21 mg TRANSDERMA DAILY [facility] Last Admin: 09/25/23 07:49 Dose: 21 mg Documented By: TEE Ondansetron HCl (Ondansetron Hcl 4 Mg/2 Ml Vial) 4 mg IVPUSH Q8H PRN PRN Reason: Nausea and Vomiting Last Admin: 09/19/23 10:02 Dose: 4 mg Documented By: LILLY Pharmacy Consult (Consult Rx Vancomycin Dosing) 1 each MISCELLANE DAILY PRN PRN Reason: Consult order Sodium Chloride (0.9 % Sodium Chloride Flush 3 Ml Syringe) 3 ml IVFLUSH QSHIFT [facility] Last Admin: 09/25/23 07:49 Dose: 3 ml Documented By: TEE Trazodone HCl (Trazodone Hcl 50 Mg Tablet) 50 mg PO BEDTIME PRN PRN Reason: sleep Last Admin: 09/23/23 19:53 Dose: 50 mg Documented By: PARTH Labs 09/23/23 05:33 09/25/23 05:57 Labs: Laboratory Results - last 24 hr 09/21/23 09/25/23 07:43 05:57 Hold Purple Top SEE NOTE Estim Creat Clear Calc 86.6 Estimated GFR > 60 Hep C Viral Load 887500 H Hep C Viral Load Log 5.45 H Microbiology Microbiology Results: Microbiology 09/23/23 16:14 Gram Stain - Final Abscess Intra-abdominal Routine Culture - Preliminary Staphylococcus aureus Anaerobic Culture - Preliminary Culture in progress. 09/23/23 05:33 Blood Culture - Preliminary Blood - Venous Staphylococcus aureus 09/23/23 05:33 Blood Culture - Preliminary Blood - Venous Staphylococcus aureus 09/21/23 06:00 Blood Culture - Final Blood - Venous Staphylococcus aureus 09/21/23 06:00 Blood Culture - Final Blood - Venous Staphylococcus aureus Assessment and Plan (1) Sepsis: Status: Acute Plan 42yo F with OUD presenting with R foot cellulitis, found to have MSSA bacteremia + T6-T7 osteomyelitis/diskitis/paravertebral abscess MSSA bacteremia, persistent T6-T7 osteomyelitis/diskitis/paravertebral abscess Right foot and ankle MRI concerning for cellulitis and septic arthritis and likely osteomyelitis of R foot. phlegmon L thigh - IV vanc + pip/carina 09/09-09/21, changed to cefazolin 09/21, plan total 6 wk from 1st negative culture , BC 09/23 positive for staph aureus ID recommend to continue IV cefazolin and added IV vancomycin 09/24 will continue current antibiotic and repeat blood cultures since we have source of infection right paravertebral abscess will hold off on JEFFREY for now Echocardiogram showed 1. Normal LV ejection fraction 60 65% 2. No obvious evidence of vegetations on this study 3. Mildly dilated left atrium 4. Mildly elevated right uncle systolic pressure and mildly elevated right atrial pressures 5. No gross pericardial effusion - s/p CT-guided drainage of paravertebral abscess 09/23 Gram stain culture sensitivity showed Staph aureus likely source of bacteremia - good pain control with PO oxycodone + IV hydromorphone OUD - Addiction Medicine consulted, switched Suboxone to methadone. tobacco abuse - NRT HCV - viral load [id number], needs outpt treatment VTE ppx - Lovenox dispo - will need STR x close to 6 wk In my clinical judgment, the patient requires continued hospitalization for the following reasons: IV ABX, persistent bacteremia Quality Stroke Does the patient have a stroke diagnosis?: No VTE Prior VTE?: No VTE Risk Level:: Medical - moderate - high VTE Device Contraindication: Treatment Not Indicated VTE Drug Contraindication: N/A - Med Ordered
--- NOTE | 2023-09-25 14:12 | P.CDIM_ITS ---
PROVIDER RESPONSE TEXT: To clarify, the appropriate diagnosis supported by the clinical indicators: Acute osteomyelitis T6-T7 QUERY TEXT: PHYSICIAN'S DOCUMENTATION REQUEST Date of Query: 09/23/2023 11:37 AM EDT Patient Name: Norma Chiang Admit Date: 09/19/2023 Dear Ruba Nj, A review of the medical record indicates additional documentation may be needed. Please review below and update the documentation accordingly. Documentation on (insert date) indicates Osteomyelitis. Clinical Indicators: PN: MSSA bacteremia, persistent T6-T7 osteomyelitis IV Vancomycin and pip/carina 09/09-09/21, changed to cefazolin 09/21 Plan total 6 weeks from 1st negative culture. NPO for CT guided drainage of paravertebral abscess. Based on the above, please clarify in the Progress Notes further specificity regarding the type of Os teomyelitis. Acute osteomyelitis T6-T7 Subacute osteomyelitis Acute on chronic osteomyelitis Chronic multifocal osteomyelitis Other (explain)Clinically unable to determine (explain)Thank you, Margarita Temple, CCS, CDIS Use of terms such as suspected, likely, concern for, or probable (associated with a specific diagnosi s that is being evaluated, monitored, or treated as if it exists) are acceptable and can be coded in the inpatient se tting, when documented at the time of discharge. Please use your independent medical judgment in providing your response. THIS QUERY IS PART OF THE PERMANENT MEDICAL RECORD
--- NOTE | 2023-09-25 14:14 | P.CDIM_ITS ---
PROVIDER RESPONSE TEXT: To clarify, the appropriate diagnosis supported by the clinical indicators: Acute QUERY TEXT: PHYSICIAN'S DOCUMENTATION REQUEST Date of Query: 09/23/2023 11:43 AM EDT Patient Name: Norma Chiang Admit Date: 09/19/2023 Dear Ruba Nj, A review of the medical record indicates additional documentation may be needed. Please review below and update the documentation accordingly. Clinical Indicators: PN: Right medial foot with erythema and swelling. Cellulitis and septic arthritis and likely osteomyelitis of right foot. IV vanco and pip/carina 09/09-09/21 changed to [email or web address]. Clarify which of the following accurately represents the acuity of the osteomyelitis of the right phillip t or other: Possible options might include: Acute Acute on chronic Chronic stable condition Other (explain)Clinically unable to determine (explain)Thank you, Margarita Temple, CCS, CDIS Use of terms such as suspected, likely, concern for, or probable (associated with a specific diagnosi s that is being evaluated, monitored, or treated as if it exists) are acceptable and can be coded in the inpatient se tting, when documented at the time of discharge. Please use your independent medical judgment in providing your response. THIS QUERY IS PART OF THE PERMANENT MEDICAL RECORD
[2023-09-25 14:24] LABS: Vancomycin Random 13.6 mcg/mL (15-20)
[2023-09-25 15:12] VITALS: BP 154/90; PULSE 61; RESP 18; TEMP 36.5; O2SAT 98
[2023-09-25] MEDS: Enoxaparin Sodium 40 MG/0.4 ML SYRINGE SUBCUT (16:09)
[2023-09-25 19:36] VITALS: BP 157/86; PULSE 81; RESP 16; TEMP 36.1; O2SAT 97
[2023-09-25] MEDS: cloNIDine HCL 0.1 MG TABLET PO (21:04)
[2023-09-26] MEDS: ceFAZolin Sodium/Dextrose,Iso 2 GM/50 ML PIGGYBACK IV ×3 (01:33→17:56)
[2023-09-26 03:41] VITALS: BP 109/69; PULSE 54; RESP 16; TEMP 36; O2SAT 97
[2023-09-26] MEDS: HYDROmorphone HCl 1 MG/ML SYRINGE 2 MG IVPUSH ×3 (05:20→13:14)
[2023-09-26 06:15] LABS: Hematocrit 33.8 % (37.0-47.0); Hemoglobin 10.6 g/dl (12.0-16.0); Mean Corpuscular HGB Conc 31.4 g/dl (31.0-35.0); Mean Corpuscular Hemoglobin 27.8 pg (27.0-33.0); Mean Corpuscular Volume 88.7 fL (80.0-98.0); Mean Platelet Volume 8.9 fL (9.4-12.3); Platelet Count 432 X10*3/uL (160-400); Red Blood Count 3.81 X10*6/uL (4.20-5.50); Red Cell Distribution Width 15.4 % (11.0-16.0); White Blood Count 10.4 X10*3/uL (4.8-10.8)
[2023-09-26 06:25] LABS: Creatinine Clr Calc Pharmacy 92.6; Estimated Glomerular Filt Rate > 60
[2023-09-26 07:13] VITALS: BP 127/68; PULSE 50; RESP 16; TEMP 36.6; O2SAT 97
[2023-09-26] MEDS: vancomycin HCL 1,000 MG in 0.9 % Sodium Chloride 250 ML 270 MG IV ×3 (08:01→23:46)
[2023-09-26] MEDS: methADONE HCl 20 MG/2 ML ORAL.CONC 60 MG PO (08:02)
[2023-09-26] MEDS: Ferrous Sulfate 324 MG TABLET.DR PO (08:02)
[2023-09-26] MEDS: Gabapentin 100 MG CAPSULE 200 MG PO (08:02)
[2023-09-26] MEDS: Nicotine 21 MG PATCH.TD24 TRANSDERMA (08:02)
[2023-09-26] MEDS: 0.9 % Sodium Chloride Flush 3 ML SYRINGE IVFLUSH ×3 (08:08→20:28)
--- NOTE | 2023-09-26 11:46 | P.PNIM_ITS ---
Subjective Subjective Date of Service: 09/26/23 Interval History: Feeling better, less right foot pain, left thigh swelling is improving denies fever chills, sleeping well , good pain control, no other acute issues overnight tolerating diet no nausea, no vomiting, no abdominal pain, no diarrhea. Review of Systems All other system reviewed and negative. Physical Exam 2 Vital Signs: Vital Signs: Last Vital Signs Temp 97.8 F 09/26/23 07:13 Pulse 50 09/26/23 07:13 Resp 16 09/26/23 07:13 BP 127/68 09/26/23 07:13 Pulse Ox 97 09/26/23 07:13 O2 Del Method Room Air 09/26/23 07:13 BMI result Body Mass Index 22.8 Const: Other: Gen: Resting comfortably, no acute distress HEENT: sclera anicteric Neck: no jvd Lungs: clear to auscultation bilaterally, no wheeze, Heart: regular rate and rhythm, no murmurs Abd: soft, non-tender, non-distended, no rhonchi, bowel sounds audible Back: mild tenderness at site of IR drainage right mid back, no swelling ,no warmth ,or thenderness . Ext: no edema Skin: warm/well-perfused, R foot erythema and swelling resolved less tenderness dorsum of foot and medial malleolus, L thigh phlegmon improving no warmth,no tenderness Neuro: alert and oriented x3, no focal weakness. Psych: appropriate affect Objective Data Active Medications Acetaminophen (Acetaminophen 325 Mg Tablet) 650 mg PO Q6H PRN PRN Reason: Pain, Mild (Pain Scale 1-3) Last Admin: 09/23/23 16:56 Dose: 650 mg Documented By: WONG Clonidine HCl (Clonidine Hcl 0.1 Mg Tablet) 0.1 mg PO BEDTIME [facility]; Protocol Last Admin: 09/25/23 21:04 Dose: 0.1 mg Documented By: YAMILKA Enoxaparin Sodium (Enoxaparin Sodium 40 Mg/0.4 Ml Syringe) 40 mg SUBCUT Q24H [facility] Last Admin: 09/25/23 16:09 Dose: 40 mg Documented By: TEE Ferrous Sulfate (Ferrous Sulfate 324 Mg Tablet.) 324 mg PO DAILY [facility] Last Admin: 09/26/23 08:02 Dose: 324 mg Documented By: WONG Gabapentin (Gabapentin 100 Mg Capsule) 200 mg PO DAILY [facility] Last Admin: 09/26/23 08:02 Dose: 200 mg Documented By: WONG Hydromorphone HCl (Hydromorphone Hcl 1 Mg/Ml Syringe) 2 mg IVPUSH Q3H PRN; Protocol PRN Reason: severe pain Last Admin: 09/26/23 09:21 Dose: 2 mg Documented By: WONG Cefazolin Sodium/Dextrose (Ancef) 2 gm in 50 mls @ 100 mls/hr IV Q8H [facility] Last Infusion: 09/26/23 10:47 Dose: Infused Documented By: WONG Vancomycin HCl 1,000 mg/ (Sodium Chloride) 270 mls @ 270 mls/hr IV Q8H [facility] Last Infusion: 09/26/23 10:14 Dose: Infused Documented By: WONG Melatonin (Melatonin 3 Mg Tablet) 6 mg PO BEDTIME PRN PRN Reason: Insomnia Last Admin: 09/24/23 21:27 Dose: 6 mg Documented By: JAY Methadone HCl (Methadone Hcl 20 Mg/2 Ml Oral.Conc) 60 mg PO DAILY [facility] Last Admin: 09/26/23 08:02 Dose: 60 mg Documented By: WONG Nicotine (Nicotine 21 Mg Patch.Td24) 21 mg TRANSDERMA DAILY [facility] Last Admin: 09/26/23 08:02 Dose: 21 mg Documented By: WONG Ondansetron HCl (Ondansetron Hcl 4 Mg/2 Ml Vial) 4 mg IVPUSH Q8H PRN PRN Reason: Nausea and Vomiting Last Admin: 09/19/23 10:02 Dose: 4 mg Documented By: LILLY Pharmacy Consult (Consult Rx Vancomycin Dosing) 1 each MISCELLANE DAILY PRN PRN Reason: Consult order Sodium Chloride (0.9 % Sodium Chloride Flush 3 Ml Syringe) 3 ml IVFLUSH QSHIFT [facility] Last Admin: 09/26/23 08:08 Dose: 3 ml Documented By: WONG Trazodone HCl (Trazodone Hcl 50 Mg Tablet) 50 mg PO BEDTIME PRN PRN Reason: sleep Last Admin: 09/23/23 19:53 Dose: 50 mg Documented By: CASTILM Labs 09/26/23 05:42 09/26/23 05:42 Labs: Laboratory Results - last 24 hr 09/25/23 09/26/23 13:52 05:42 MCV 88.7 MCH 27.8 MCHC 31.4 RDW 15.4 Plt Count 432 H MPV 8.9 L Absolute Nucleated RBC 0.000 Nucleated RBC % (auto) 0.0 Estim Creat Clear Calc 92.6 Estimated GFR > 60 Random Vancomycin 13.6 L Microbiology Microbiology Results: Microbiology 09/23/23 16:14 Gram Stain - Final Abscess Intra-abdominal Routine Culture - Final Staphylococcus aureus Anaerobic Culture - Preliminary 09/23/23 05:33 Blood Culture - Final Blood - Venous Staphylococcus aureus 09/23/23 05:33 Blood Culture - Final Blood - Venous Staphylococcus aureus Assessment and Plan (1) Sepsis: Status: Acute Plan 42yo F with OUD presenting with R foot cellulitis, found to have MSSA bacteremia + T6-T7 osteomyelitis/diskitis/paravertebral abscess MSSA bacteremia, persistent No fevers, no chills ,WBC normalized T6-T7 osteomyelitis/diskitis/paravertebral abscess Right foot and ankle MRI concerning for cellulitis and septic arthritis and likely osteomyelitis of R foot. phlegmon L thigh IV vanc + pip/carina 09/09-09/21, changed to cefazolin 09/21, plan total 6 wk from 1st negative culture , BC 09/23 positive for staph aureus ID recommend to continue IV cefazolin and added IV vancomycin 09/24 will continue current antibiotic and repeat blood cultures on 09/27 since we have source of infection right paravertebral abscess/osteo/diskitis will hold off on JEFFREY for now. Echocardiogram showed 1. Normal LV ejection fraction 60 65% 2. No obvious evidence of vegetations on this study 3. Mildly dilated left atrium 4. Mildly elevated right uncle systolic pressure and mildly elevated right atrial pressures 5. No gross pericardial effusion - s/p CT-guided drainage of paravertebral abscess 09/23 Gram stain culture sensitivity showed Staph aureus likely source of bacteremia - good pain control with PO oxycodone + IV hydromorphone OUD - Addiction Medicine consulted, switched Suboxone to methadone. tobacco abuse - NRT HCV - viral load [id number], needs outpt treatment VTE ppx - Lovenox dispo - will need STR x close to 6 wk In my clinical judgment, the patient requires continued hospitalization for the following reasons: IV ABX, persistent bacteremia Quality Stroke Does the patient have a stroke diagnosis?: No VTE Prior VTE?: No VTE Risk Level:: Medical - moderate - high VTE Device Contraindication: Treatment Not Indicated VTE Drug Contraindication: N/A - Med Ordered
[2023-09-26 15:22] LABS: Vancomycin Random 14.4 mcg/mL (15-20)
[2023-09-26 15:53] VITALS: BP 148/79; PULSE 64; RESP 18; TEMP 36.1; O2SAT 98
[2023-09-26] MEDS: Enoxaparin Sodium 40 MG/0.4 ML SYRINGE SUBCUT (16:26)
[2023-09-26 19:35] VITALS: BP 114/69; PULSE 50; RESP 16; TEMP 36.1; O2SAT 95
[2023-09-26] MEDS: cloNIDine HCL 0.1 MG TABLET PO (20:25)
[2023-09-27] MEDS: HYDROmorphone HCl 1 MG/ML SYRINGE 2 MG IVPUSH (01:20)
[2023-09-27] MEDS: ceFAZolin Sodium/Dextrose,Iso 2 GM/50 ML PIGGYBACK IV ×3 (01:23→17:06)
[2023-09-27 03:17] VITALS: BP 110/59; PULSE 57; RESP 16; TEMP 36.1; O2SAT 95
[2023-09-27 06:57] LABS: Estimated Glomerular Filt Rate > 60
[2023-09-27 07:36] VITALS: BP 129/72; PULSE 48; RESP 16; TEMP 36.1; O2SAT 96
[2023-09-27] MEDS: vancomycin HCL 1,000 MG in 0.9 % Sodium Chloride 250 ML 270 MG IV ×3 (07:45→23:57)
[2023-09-27] MEDS: 0.9 % Sodium Chloride Flush 3 ML SYRINGE IVFLUSH ×3 (07:46→23:57)
[2023-09-27] MEDS: methADONE HCl 20 MG/2 ML ORAL.CONC 60 MG PO (08:35)
[2023-09-27] MEDS: Ferrous Sulfate 324 MG TABLET.DR PO (08:35)
[2023-09-27] MEDS: Nicotine 21 MG PATCH.TD24 TRANSDERMA (08:35)
[2023-09-27] MEDS: Gabapentin 100 MG CAPSULE 200 MG PO (08:35)
[2023-09-27] MEDS: HYDROmorphone HCl 2 MG/ML VIAL IVPUSH ×3 (11:36→20:40)
--- NOTE | 2023-09-27 14:19 | P.PNIM_ITS ---
Subjective Subjective Date of Service: 09/27/23 Interval History: No acute issues overnight. Pain control adequate. Repeat blood cultures drawn this a.m. Review of Systems Denies chest pain Denies shortness of breath Denies nausea vomiting diarrhea Denies fever chills Physical Exam 2 Vital Signs: Vital Signs: Last Vital Signs Temp 96.9 F 09/27/23 07:36 Pulse 48 L 09/27/23 07:36 Resp 16 09/27/23 07:36 BP 129/72 09/27/23 07:36 Pulse Ox 96 09/27/23 07:36 O2 Del Method Room Air 09/27/23 07:36 BMI result Body Mass Index 22.8 Const: Other: Awake alert no acute distress Resp: Other: Clear to auscultation bilaterally no rales rhonchi or wheezes Cardio: Other: No S4; positive S1-S2; no S3 murmurs rubs or gallops GI: Other: Soft nontender nondistended normoactive bowel sounds Extrem: Other: No edema bilaterally Objective Data Active Medications Acetaminophen (Acetaminophen 325 Mg Tablet) 650 mg PO Q6H PRN PRN Reason: Pain, Mild (Pain Scale 1-3) Last Admin: 09/23/23 16:56 Dose: 650 mg Documented By: WONG Clonidine HCl (Clonidine Hcl 0.1 Mg Tablet) 0.1 mg PO BEDTIME [facility]; Protocol Last Admin: 09/26/23 20:25 Dose: 0.1 mg Documented By: YAMILKA Enoxaparin Sodium (Enoxaparin Sodium 40 Mg/0.4 Ml Syringe) 40 mg SUBCUT Q24H [facility] Last Admin: 09/26/23 16:26 Dose: 40 mg Documented By: WONG Ferrous Sulfate (Ferrous Sulfate 324 Mg Tablet.) 324 mg PO DAILY [facility] Last Admin: 09/27/23 08:35 Dose: 324 mg Documented By: KIRSTIN Gabapentin (Gabapentin 100 Mg Capsule) 200 mg PO DAILY [facility] Last Admin: 09/27/23 08:35 Dose: 200 mg Documented By: KIRSTIN Hydromorphone HCl (Hydromorphone Hcl 2 Mg/Ml Vial) 2 mg IVPUSH Q3H PRN; Protocol PRN Reason: Pain, Severe (Pain Scale 7-10) Last Admin: 09/27/23 11:36 Dose: 2 mg Documented By: KIRSTIN Cefazolin Sodium/Dextrose (Ancef) 2 gm in 50 mls @ 100 mls/hr IV Q8H [facility] Last Infusion: 09/27/23 11:08 Dose: Infused Documented By: KIRSTIN Vancomycin HCl 1,000 mg/ (Sodium Chloride) 270 mls @ 270 mls/hr IV Q8H [facility] Last Infusion: 09/27/23 08:45 Dose: Infused Documented By: KIRSTIN Melatonin (Melatonin 3 Mg Tablet) 6 mg PO BEDTIME PRN PRN Reason: Insomnia Last Admin: 09/24/23 21:27 Dose: 6 mg Documented By: JAY Methadone HCl (Methadone Hcl 20 Mg/2 Ml Oral.Conc) 60 mg PO DAILY [facility] Last Admin: 09/27/23 08:35 Dose: 60 mg Documented By: KIRSTIN Nicotine (Nicotine 21 Mg Patch.Td24) 21 mg TRANSDERMA DAILY [facility] Last Admin: 09/27/23 08:35 Dose: 21 mg Documented By: KIRSTIN Ondansetron HCl (Ondansetron Hcl 4 Mg/2 Ml Vial) 4 mg IVPUSH Q8H PRN PRN Reason: Nausea and Vomiting Last Admin: 09/19/23 10:02 Dose: 4 mg Documented By: LILLY Pharmacy Consult (Consult Rx Vancomycin Dosing) 1 each MISCELLANE DAILY PRN PRN Reason: Consult order Sodium Chloride (0.9 % Sodium Chloride Flush 3 Ml Syringe) 3 ml IVFLUSH QSHIFT [facility] Last Admin: 09/27/23 07:46 Dose: 3 ml Documented By: KIRSTIN Trazodone HCl (Trazodone Hcl 50 Mg Tablet) 50 mg PO BEDTIME PRN PRN Reason: sleep Last Admin: 09/23/23 19:53 Dose: 50 mg Documented By: CASTILM Labs 09/26/23 05:42 09/27/23 06:03 Labs: Laboratory Results - last 24 hr 09/26/23 09/27/23 14:52 06:03 Hold Purple Top SEE NOTE Estim Creat Clear Calc 79.0 Estimated GFR > 60 Random Vancomycin 14.4 L Microbiology Microbiology Results: Microbiology 09/23/23 16:14 Gram Stain - Final Abscess Intra-abdominal Routine Culture - Final Staphylococcus aureus Anaerobic Culture - Preliminary 09/23/23 05:33 Blood Culture - Final Blood - Venous Staphylococcus aureus 09/23/23 05:33 Blood Culture - Final Blood - Venous Staphylococcus aureus Assessment and Plan (1) MSSA bacteremia: Status: Acute Plan 42yo F with OUD presenting with R foot cellulitis, found to have MSSA bacteremia + T6-T7 osteomyelitis/diskitis/paravertebral abscess 1.MSSA bacteremia, persistent -T6-T7 osteomyelitis/diskitis/paravertebral abscess -vanco/zosyn 09/09-09/21; cefazolin(7), plan total 6 wk from 1st negative culture (repeat cultures drawn this a.m.) -echo without vegetation -oxy/Dilaudid for pain control 2.OUD -methadone. 3.HCV - viral load [id number] -outpatient therapy Lovenox In my clinical judgment, the patient requires continued hospitalization for the following reasons: IV ABX, persistent bacteremia Quality Stroke Does the patient have a stroke diagnosis?: No VTE Prior VTE?: No VTE Risk Level:: Medical - moderate - high VTE Device Contraindication: Treatment Not Indicated VTE Drug Contraindication: N/A - Med Ordered
[2023-09-27 15:21] VITALS: BP 142/89; PULSE 56; RESP 18; TEMP 36.7; O2SAT 100
[2023-09-27 15:23] LABS: Vancomycin Trough 14.5 mcg/mL (10.0-20.0)
--- NOTE | 2023-09-27 15:31 | MHC.CM.PN ---
per rounds pt not ready for dc
[2023-09-27] MEDS: Enoxaparin Sodium 40 MG/0.4 ML SYRINGE SUBCUT (15:58)
[2023-09-27 19:24] VITALS: BP 137/83; PULSE 66; RESP 16; TEMP 36.3; O2SAT 96
[2023-09-27] MEDS: cloNIDine HCL 0.1 MG TABLET PO (20:35)
[2023-09-27] MEDS: traZODone HCL 50 MG TABLET PO (20:36)
[2023-09-28] MEDS: ceFAZolin Sodium/Dextrose,Iso 2 GM/50 ML PIGGYBACK IV ×3 (03:10→17:10)
[2023-09-28 06:46] LABS: Creatinine Clr Calc Pharmacy 76.7; Estimated Glomerular Filt Rate > 60
[2023-09-28 08:00] VITALS: BP 120/69; PULSE 64; RESP 16; TEMP 36.6; O2SAT 97
[2023-09-28] MEDS: methADONE HCl 20 MG/2 ML ORAL.CONC 60 MG PO (08:34)
[2023-09-28] MEDS: Gabapentin 100 MG CAPSULE 200 MG PO (08:34)
[2023-09-28] MEDS: Nicotine 21 MG PATCH.TD24 TRANSDERMA (08:35)
[2023-09-28] MEDS: Ferrous Sulfate 324 MG TABLET.DR PO (08:35)
[2023-09-28] MEDS: vancomycin HCL 1,000 MG in 0.9 % Sodium Chloride 250 ML 270 MG IV ×2 (08:36→15:24)
[2023-09-28] MEDS: HYDROmorphone HCl 2 MG/ML VIAL IVPUSH ×4 (08:41→21:11)
[2023-09-28] MEDS: 0.9 % Sodium Chloride Flush 3 ML SYRINGE IVFLUSH ×2 (09:55→15:23)
--- NOTE | 2023-09-28 13:25 | P.PNIM_ITS ---
Subjective Subjective Date of Service: 09/28/23 Interval History: No acute issues overnight. Awaiting cultures prior to PICC line. Ultimately will need placement Review of Systems Denies chest pain Denies shortness of breath Denies nausea vomiting diarrhea Denies fever chills Physical Exam 2 Vital Signs: Vital Signs: Last Vital Signs Temp 98 F 09/28/23 08:00 Pulse 64 09/28/23 08:00 Resp 16 09/28/23 08:00 BP 120/69 09/28/23 08:00 Pulse Ox 97 09/28/23 08:00 O2 Del Method Room Air 09/28/23 08:00 BMI result Body Mass Index 22.8 Const: Other: Awake alert no acute distress Resp: Other: Clear to auscultation bilaterally no rales rhonchi or wheezes Cardio: Other: No S4; positive S1-S2; no S3 murmurs rubs or gallops GI: Other: Soft nontender nondistended normoactive bowel sounds Extrem: Other: No edema bilaterally Objective Data Active Medications Acetaminophen (Acetaminophen 325 Mg Tablet) 650 mg PO Q6H PRN PRN Reason: Pain, Mild (Pain Scale 1-3) Last Admin: 09/23/23 16:56 Dose: 650 mg Documented By: WONG Clonidine HCl (Clonidine Hcl 0.1 Mg Tablet) 0.1 mg PO BEDTIME [facility]; Protocol Last Admin: 09/27/23 20:35 Dose: 0.1 mg Documented By: PARTH Enoxaparin Sodium (Enoxaparin Sodium 40 Mg/0.4 Ml Syringe) 40 mg SUBCUT Q24H [facility] Last Admin: 09/27/23 15:58 Dose: 40 mg Documented By: KIRSTIN Ferrous Sulfate (Ferrous Sulfate 324 Mg Tablet.Dr) 324 mg PO DAILY [facility] Last Admin: 09/28/23 08:35 Dose: 324 mg Documented By: TERRY Gabapentin (Gabapentin 100 Mg Capsule) 200 mg PO DAILY [facility] Last Admin: 09/28/23 08:34 Dose: 200 mg Documented By: TERRY Hydromorphone HCl (Hydromorphone Hcl 2 Mg/Ml Vial) 2 mg IVPUSH Q3H PRN; Protocol PRN Reason: Pain, Severe (Pain Scale 7-10) Last Admin: 09/28/23 08:41 Dose: 2 mg Documented By: TERRY Cefazolin Sodium/Dextrose (Ancef) 2 gm in 50 mls @ 100 mls/hr IV Q8H [facility] Last Infusion: 09/28/23 10:42 Dose: Infused Documented By: TERRY Vancomycin HCl 1,000 mg/ (Sodium Chloride) 270 mls @ 270 mls/hr IV Q8H [facility] Last Infusion: 09/28/23 09:37 Dose: Infused Documented By: TERRY Melatonin (Melatonin 3 Mg Tablet) 6 mg PO BEDTIME PRN PRN Reason: Insomnia Last Admin: 09/24/23 21:27 Dose: 6 mg Documented By: JAY Methadone HCl (Methadone Hcl 20 Mg/2 Ml Oral.Conc) 60 mg PO DAILY [facility] Last Admin: 09/28/23 08:34 Dose: 60 mg Documented By: TERRY Nicotine (Nicotine 21 Mg Patch.Td24) 21 mg TRANSDERMA DAILY [facility] Last Admin: 09/28/23 08:35 Dose: 21 mg Documented By: TERRY Ondansetron HCl (Ondansetron Hcl 4 Mg/2 Ml Vial) 4 mg IVPUSH Q8H PRN PRN Reason: Nausea and Vomiting Last Admin: 09/19/23 10:02 Dose: 4 mg Documented By: LILLY Pharmacy Consult (Consult Rx Vancomycin Dosing) 1 each MISCELLANE DAILY PRN PRN Reason: Consult order Sodium Chloride (0.9 % Sodium Chloride Flush 3 Ml Syringe) 3 ml IVFLUSH QSHIFT [facility] Last Admin: 09/28/23 09:55 Dose: 3 ml Documented By: TERRY Trazodone HCl (Trazodone Hcl 50 Mg Tablet) 50 mg PO BEDTIME PRN PRN Reason: sleep Last Admin: 09/27/23 20:36 Dose: 50 mg Documented By: CASTILM Labs 09/26/23 05:42 09/28/23 06:15 Labs: Laboratory Results - last 24 hr 09/27/23 09/28/23 14:39 06:15 Hold Purple Top SEE NOTE Estim Creat Clear Calc 76.7 Estimated GFR > 60 Vancomycin Trough 14.5 Microbiology Microbiology Results: Microbiology 09/23/23 16:14 Gram Stain - Final Abscess Intra-abdominal Routine Culture - Final Staphylococcus aureus Anaerobic Culture - Final 09/27/23 06:03 Blood Culture - Preliminary Blood - Venous No growth after 24 hours. 09/27/23 06:03 Blood Culture - Preliminary Blood - Venous No growth after 24 hours. Assessment and Plan (1) MSSA bacteremia: Status: Acute Plan 42yo F with OUD presenting with R foot cellulitis, found to have MSSA bacteremia + T6-T7 osteomyelitis/diskitis/paravertebral abscess 1.MSSA bacteremia, persistent -T6-T7 osteomyelitis/diskitis/paravertebral abscess -vanco/zosyn 09/09-09/21; cefazolin(8), plan total 6 wk from 1st negative culture (repeat cultures 09/27 negative times 24 hours.) -echo without vegetation -oxy/Dilaudid for pain control 2.OUD -methadone. 3.HCV - viral load [id number] -outpatient therapy Lovenox In my clinical judgment, the patient requires continued hospitalization for the following reasons: IV ABX, persistent bacteremia Quality Stroke Does the patient have a stroke diagnosis?: No VTE Prior VTE?: No VTE Risk Level:: Medical - moderate - high VTE Device Contraindication: Treatment Not Indicated VTE Drug Contraindication: N/A - Med Ordered
[2023-09-28 14:35] LABS: Vancomycin Trough 14.4 mcg/mL (10.0-20.0)
[2023-09-28] MEDS: Enoxaparin Sodium 40 MG/0.4 ML SYRINGE SUBCUT (15:23)
[2023-09-28 15:40] VITALS: BP 111/64; PULSE 64; RESP 18; TEMP 36.1; O2SAT 96
[2023-09-28 19:21] VITALS: BP 153/82; PULSE 76; RESP 14; TEMP 37.1; O2SAT 97
[2023-09-28] MEDS: cloNIDine HCL 0.1 MG TABLET PO (21:04)
[2023-09-28 21:11] VITALS: RESP 18
[2023-09-29] MEDS: ceFAZolin Sodium/Dextrose,Iso 2 GM/50 ML PIGGYBACK IV ×3 (00:43→17:16)
[2023-09-29] MEDS: HYDROmorphone HCl 2 MG/ML VIAL IVPUSH ×6 (00:48→23:40)
[2023-09-29] MEDS: vancomycin HCL 1,000 MG in 0.9 % Sodium Chloride 250 ML 270 MG IV ×3 (00:54→15:18)
[2023-09-29 03:38] VITALS: BP 120/71; PULSE 60; RESP 16; TEMP 36.8; O2SAT 96
[2023-09-29 05:45] LABS: Creatinine Clr Calc Pharmacy 76.7; Estimated Glomerular Filt Rate > 60
[2023-09-29 07:38] VITALS: BP 130/84; PULSE 64; RESP 18; TEMP 36.8; O2SAT 96
[2023-09-29] MEDS: methADONE HCl 20 MG/2 ML ORAL.CONC 60 MG PO (08:27)
[2023-09-29] MEDS: Ferrous Sulfate 324 MG TABLET.DR PO (08:27)
[2023-09-29] MEDS: Gabapentin 100 MG CAPSULE 200 MG PO (08:27)
[2023-09-29] MEDS: Nicotine 21 MG PATCH.TD24 TRANSDERMA (08:28)
--- NOTE | 2023-09-29 10:40 | MHC.RECOVRN ---
Met with pt in 352 to follow up and provide support. Pt laying in bed, diaphoretic, appears uncomfortable. Pt reports IV was leaking overnight so she did not receive appropriate pain medication, reporting pain all over. Pt believes it to be from being in bed so plans to try to walk around the unit today. Pt states the antibiotics are working though, my foot is just tender now. Pt reports diaphoresis is persistent throughout the night and is requesting methadone dose increase. Pt denies other questions or concerns. Savita Quintanilla APRN, aware.
--- NOTE | 2023-09-29 11:05 | HO.PM.IMPN ---
Subjective Subjective Date of Service: 09/29/23 Interval History: No acute issues overnight. Remains afebrile Review of Systems Denies chest pain Denies shortness of breath Denies nausea vomiting diarrhea Denies fever chills Physical Exam Vital Signs: Vital Signs: Last Vital Signs Temp 98.3 F 09/29/23 07:38 Pulse 64 09/29/23 07:38 Resp 18 09/29/23 07:38 BP 130/84 09/29/23 07:38 Pulse Ox 96 09/29/23 07:38 O2 Del Method Room Air 09/29/23 07:38 BMI result Body Mass Index 22.8 Const: Other: Awake alert no acute distress Resp: Other: Clear to auscultation bilaterally no rales rhonchi or wheezes Cardio: Other: No S4; positive S1-S2; no S3 murmurs rubs or gallops GI: Other: Soft nontender nondistended normoactive bowel sounds Extrem: Other: No edema bilaterally Objective Data Active Medications Acetaminophen (Acetaminophen 325 Mg Tablet) 650 mg PO Q6H PRN PRN Reason: Pain, Mild (Pain Scale 1-3) Last Admin: 09/23/23 16:56 Dose: 650 mg Documented By: WONG Clonidine HCl (Clonidine Hcl 0.1 Mg Tablet) 0.1 mg PO BEDTIME [facility]; Protocol Last Admin: 09/28/23 21:04 Dose: 0.1 mg Documented By: SHELLI Enoxaparin Sodium (Enoxaparin Sodium 40 Mg/0.4 Ml Syringe) 40 mg SUBCUT Q24H [facility] Last Admin: 09/28/23 15:23 Dose: 40 mg Documented By: JO Ferrous Sulfate (Ferrous Sulfate 324 Mg Tablet.Dr) 324 mg PO DAILY [facility] Last Admin: 09/29/23 08:27 Dose: 324 mg Documented By: AUTUMN Gabapentin (Gabapentin 100 Mg Capsule) 200 mg PO DAILY [facility] Last Admin: 09/29/23 08:27 Dose: 200 mg Documented By: AUTUMN Hydromorphone HCl (Hydromorphone Hcl 2 Mg/Ml Vial) 2 mg IVPUSH Q3H PRN; Protocol PRN Reason: Pain, Severe (Pain Scale 7-10) Last Admin: 09/29/23 09:44 Dose: 2 mg Documented By: AUTUMN Cefazolin Sodium/Dextrose (Ancef) 2 gm in 50 mls @ 100 mls/hr IV Q8H [facility] Last Admin: 09/29/23 10:52 Dose: 100 mls/hr Documented By: AUTUMN Vancomycin HCl 1,000 mg/ (Sodium Chloride) 270 mls @ 270 mls/hr IV Q8H [facility] Last Admin: 09/29/23 09:44 Dose: 270 mls/hr Documented By: AUTUMN Melatonin (Melatonin 3 Mg Tablet) 6 mg PO BEDTIME PRN PRN Reason: Insomnia Last Admin: 09/24/23 21:27 Dose: 6 mg Documented By: JAY Methadone HCl (Methadone Hcl 20 Mg/2 Ml Oral.Conc) 60 mg PO DAILY [facility] Last Admin: 09/29/23 08:27 Dose: 60 mg Documented By: AUTUMN Nicotine (Nicotine 21 Mg Patch.Td24) 21 mg TRANSDERMA DAILY [facility] Last Admin: 09/29/23 08:28 Dose: 21 mg Documented By: AUTUMN Ondansetron HCl (Ondansetron Hcl 4 Mg/2 Ml Vial) 4 mg IVPUSH Q8H PRN PRN Reason: Nausea and Vomiting Last Admin: 09/19/23 10:02 Dose: 4 mg Documented By: LILLY Pharmacy Consult (Consult Rx Vancomycin Dosing) 1 each MISCELLANE DAILY PRN PRN Reason: Consult order Sodium Chloride (0.9 % Sodium Chloride Flush 3 Ml Syringe) 3 ml IVFLUSH QSHIFT [facility] Last Admin: 09/29/23 08:29 Dose: Not Given Documented By: AUTUMN Non-Admin Reason: iv leaking Trazodone HCl (Trazodone Hcl 50 Mg Tablet) 50 mg PO BEDTIME PRN PRN Reason: sleep Last Admin: 09/27/23 20:36 Dose: 50 mg Documented By: NANILM Labs 09/26/23 05:42 09/29/23 05:04 Labs: Laboratory Results - last 24 hr 09/28/23 09/29/23 13:58 05:04 Hold Purple Top SEE NOTE Estim Creat Clear Calc 76.7 Estimated GFR > 60 Vancomycin Trough 14.4 Microbiology Microbiology Results: Microbiology 09/27/23 06:03 Blood Culture - Preliminary Blood - Venous No growth after 48 hours. 09/27/23 06:03 Blood Culture - Preliminary Blood - Venous No growth after 48 hours. 09/23/23 16:14 Gram Stain - Final Abscess Intra-abdominal Routine Culture - Final Staphylococcus aureus Anaerobic Culture - Final Assessment and Plan (1) MSSA bacteremia: Status: Acute Plan 42yo F with OUD presenting with R foot cellulitis, found to have MSSA bacteremia + T6-T7 osteomyelitis/diskitis/paravertebral abscess 1.MSSA bacteremia, persistent -T6-T7 osteomyelitis/diskitis/paravertebral abscess -vanco/zosyn 09/09-09/21; cefazolin(9), plan total 6 wk from 1st negative culture (repeat cultures 09/27 negative times 48 hours.) -PICC line ordered -oxy/Dilaudid for pain control 2.OUD -methadone. 3.HCV - viral load [id number] -outpatient therapy Lovenox In my clinical judgment, the patient requires continued hospitalization for the following reasons: IV ABX, persistent bacteremia Quality Stroke Does the patient have a stroke diagnosis?: No VTE Prior VTE?: No VTE Risk Level:: Medical - moderate - high VTE Device Contraindication: Treatment Not Indicated VTE Drug Contraindication: N/A - Med Ordered
[2023-09-29 15:00] LABS: Vancomycin Trough 13.4 mcg/mL (10.0-20.0)
[2023-09-29] MEDS: Enoxaparin Sodium 40 MG/0.4 ML SYRINGE SUBCUT (15:19)
[2023-09-29 15:29] VITALS: BP 139/81; PULSE 65; RESP 16; TEMP 36.8; O2SAT 96
[2023-09-29 19:26] VITALS: BP 129/70; PULSE 75; RESP 18; TEMP 37.1; O2SAT 95
[2023-09-29] MEDS: cloNIDine HCL 0.1 MG TABLET PO (19:35)
[2023-09-29] MEDS: 0.9 % Sodium Chloride Flush 3 ML SYRINGE IVFLUSH (19:36)
[2023-09-30] VITALS: BP 115/71; PULSE 65; RESP 18; TEMP 37.5; O2SAT 95
[2023-09-30] MEDS: vancomycin HCL 1,000 MG in 0.9 % Sodium Chloride 250 ML 270 MG IV ×4 (00:19→23:45)
[2023-09-30] MEDS: ceFAZolin Sodium/Dextrose,Iso 2 GM/50 ML PIGGYBACK IV ×3 (01:14→17:47)
[2023-09-30] MEDS: HYDROmorphone HCl 2 MG/ML VIAL IVPUSH ×5 (04:01→23:50)
[2023-09-30 04:04] VITALS: BP 117/72; PULSE 58
--- NOTE | 2023-09-30 04:34 | PC.NURSE ---
no void since 2300k, scanned bladder for 201. no intervention.
[2023-09-30 06:23] LABS: Creatinine Clr Calc Pharmacy 76.7; Estimated Glomerular Filt Rate > 60
[2023-09-30 07:19] VITALS: BP 120/78; PULSE 52; RESP 16; TEMP 36.5; O2SAT 95
[2023-09-30] MEDS: methADONE HCl 20 MG/2 ML ORAL.CONC 70 MG PO (08:38)
[2023-09-30] MEDS: Nicotine 21 MG PATCH.TD24 TRANSDERMA (08:38)
[2023-09-30] MEDS: Ferrous Sulfate 324 MG TABLET.DR PO (08:38)
[2023-09-30] MEDS: Gabapentin 100 MG CAPSULE 200 MG PO (08:38)
[2023-09-30] MEDS: 0.9 % Sodium Chloride Flush 3 ML SYRINGE IVFLUSH ×3 (08:45→20:55)
--- NOTE | 2023-09-30 12:21 | MHC.CM.PN ---
PER ROUNDS PT PT WILL GET A PICC LIONE TODAY T/W CALLD TANISHA FROM/[facility] AND ASKED FOR A RETURN CALL RE BED STatus
--- NOTE | 2023-09-30 12:48 | HO.PM.IMPN ---
Subjective Subjective Date of Service: 09/30/23 Interval History: Complaining of right foot discomfort but significantly improved since admission trying to ambulate, tolerating diet no nausea no vomiting no abdominal pain, no fevers, no chills left thigh swelling significantly improved, no acute overnight events. Review of Systems All other system reviewed and negative. Physical Exam Vital Signs: Vital Signs: Last Vital Signs Temp 97.7 F 09/30/23 07:19 Pulse 52 09/30/23 07:19 Resp 16 09/30/23 07:19 BP 120/78 09/30/23 07:19 Pulse Ox 95 09/30/23 07:19 O2 Del Method Room Air 09/30/23 07:19 BMI result Body Mass Index 22.8 Const: Other: Gen: Resting comfortably, no acute distress HEENT: sclera anicteric Neck: no jvd Lungs: clear to auscultation bilaterally, no wheeze, Heart: regular rate and rhythm, no murmurs Abd: soft, non-tender, non-distended, no rhonchi, bowel sounds audible Ext: no edema Skin: warm/well-perfused, R foot erythema and swelling resolved less tenderness dorsum of foot and medial malleolus, L thigh phlegmon resolved Neuro: alert and oriented x3, no focal weakness. Psych: appropriate affect Objective Data Active Medications Acetaminophen (Acetaminophen 325 Mg Tablet) 650 mg PO Q6H PRN PRN Reason: Pain, Mild (Pain Scale 1-3) Last Admin: 09/23/23 16:56 Dose: 650 mg Documented By: WONG Clonidine HCl (Clonidine Hcl 0.1 Mg Tablet) 0.1 mg PO BEDTIME [facility]; Protocol Last Admin: 09/29/23 19:35 Dose: 0.1 mg Documented By: WILTON Enoxaparin Sodium (Enoxaparin Sodium 40 Mg/0.4 Ml Syringe) 40 mg SUBCUT Q24H [facility] Last Admin: 09/29/23 15:19 Dose: 40 mg Documented By: LACHO Ferrous Sulfate (Ferrous Sulfate 324 Mg Tablet.) 324 mg PO DAILY [facility] Last Admin: 09/30/23 08:38 Dose: 324 mg Documented By: MATHEW Gabapentin (Gabapentin 100 Mg Capsule) 200 mg PO DAILY [facility] Last Admin: 09/30/23 08:38 Dose: 200 mg Documented By: MATHEW Hydromorphone HCl (Hydromorphone Hcl 2 Mg/Ml Vial) 2 mg IVPUSH Q3H PRN; Protocol PRN Reason: Pain, Severe (Pain Scale 7-10) Last Admin: 09/30/23 10:25 Dose: 2 mg Documented By: MATHEW Cefazolin Sodium/Dextrose (Ancef) 2 gm in 50 mls @ 100 mls/hr IV Q8H [facility] Last Infusion: 09/30/23 11:04 Dose: Infused Documented By: MATHEW Vancomycin HCl 1,000 mg/ (Sodium Chloride) 270 mls @ 270 mls/hr IV Q8H [facility] Last Infusion: 09/30/23 09:46 Dose: Infused Documented By: MATHEW Melatonin (Melatonin 3 Mg Tablet) 6 mg PO BEDTIME PRN PRN Reason: Insomnia Last Admin: 09/24/23 21:27 Dose: 6 mg Documented By: JAY Methadone HCl (Methadone Hcl 20 Mg/2 Ml Oral.Conc) 70 mg PO DAILY [facility] Last Admin: 09/30/23 08:38 Dose: 70 mg Documented By: MATHEW Nicotine (Nicotine 21 Mg Patch.Td24) 21 mg TRANSDERMA DAILY [facility] Last Admin: 09/30/23 08:38 Dose: 21 mg Documented By: MATHEW Ondansetron HCl (Ondansetron Hcl 4 Mg/2 Ml Vial) 4 mg IVPUSH Q8H PRN PRN Reason: Nausea and Vomiting Last Admin: 09/19/23 10:02 Dose: 4 mg Documented By: LILLY Pharmacy Consult (Consult Rx Vancomycin Dosing) 1 each MISCELLANE DAILY PRN PRN Reason: Consult order Sodium Chloride (0.9 % Sodium Chloride Flush 3 Ml Syringe) 3 ml IVFLUSH QSHIFT [facility] Last Admin: 09/30/23 08:45 Dose: 3 ml Documented By: MATHEW Trazodone HCl (Trazodone Hcl 50 Mg Tablet) 50 mg PO BEDTIME PRN PRN Reason: sleep Last Admin: 09/27/23 20:36 Dose: 50 mg Documented By: DAVIDM Labs 09/26/23 05:42 09/30/23 05:25 Labs: Laboratory Results - last 24 hr 09/29/23 09/30/23 14:15 05:25 Hold Purple Top SEE NOTE Estim Creat Clear Calc 76.7 Estimated GFR > 60 Vancomycin Trough 13.4 Microbiology Microbiology Results: Microbiology 09/27/23 06:03 Blood Culture - Preliminary Blood - Venous No growth after 48 hours. 09/27/23 06:03 Blood Culture - Preliminary Blood - Venous No growth after 48 hours. Assessment and Plan (1) MSSA bacteremia: Status: Acute Plan 42yo F with OUD presenting with R foot cellulitis, found to have MSSA bacteremia + T6-T7 osteomyelitis/diskitis/paravertebral abscess 1.MSSA bacteremia, persistent -T6-T7 osteomyelitis/diskitis/paravertebral abscess -vanco/zosyn 09/09-09/21; changed to cefazolin 09/21, restarted vancomycin plan total 6 wk IV antibiotics from 1st negative culture (repeat cultures 09/27 negative times 48 hours.) Will discuss with ID regarding choice of antibiotic -PICC line ordered, since patient is homeless with history of IV drug use, will discuss with case management associate regarding his rehab placement -continue oxy/Dilaudid for pain control 2.OUD -methadone. 3.HCV - viral load [id number] -outpatient therapy 4.tobacco abuse - NRT DVT prophylaxis Lovenox In my clinical judgment, the patient requires continued hospitalization for the following reasons: IV ABX, for bacteremia and need for PICC line placement and safe disposition. Quality Stroke Does the patient have a stroke diagnosis?: No VTE Prior VTE?: No VTE Risk Level:: Medical - moderate - high VTE Device Contraindication: Treatment Not Indicated VTE Drug Contraindication: N/A - Med Ordered
[2023-09-30 14:46] LABS: Vancomycin Random 15.4 mcg/mL (15-20)
[2023-09-30 15:11] VITALS: BP 120/70; PULSE 64; RESP 18; TEMP 36.7; O2SAT 97
[2023-09-30] MEDS: Enoxaparin Sodium 40 MG/0.4 ML SYRINGE SUBCUT (15:49)
[2023-09-30] MEDS: cloNIDine HCL 0.1 MG TABLET PO (20:55)
[2023-09-30 23:46] VITALS: BP 117/74; PULSE 54; RESP 18; TEMP 36.7; O2SAT 96
[2023-10-01] MEDS: ceFAZolin Sodium/Dextrose,Iso 2 GM/50 ML PIGGYBACK IV (01:47)
[2023-10-01] MEDS: HYDROmorphone HCl 2 MG/ML VIAL IVPUSH (05:57)
[2023-10-01 06:26] LABS: Creatinine Clr Calc Pharmacy 82.6; Estimated Glomerular Filt Rate > 60
[2023-10-01 08:00] VITALS: BP 137/89; PULSE 50; RESP 18; TEMP 36.4; O2SAT 97
[2023-10-01] MEDS: methADONE HCl 20 MG/2 ML ORAL.CONC 70 MG PO (08:03)
[2023-10-01] MEDS: Gabapentin 100 MG CAPSULE 200 MG PO (08:03)
[2023-10-01] MEDS: Ferrous Sulfate 324 MG TABLET.DR PO (08:03)
[2023-10-01] MEDS: Nicotine 21 MG PATCH.TD24 TRANSDERMA (08:03)
[2023-10-01] MEDS: vancomycin HCL 1,000 MG in 0.9 % Sodium Chloride 250 ML 270 MG IV ×3 (08:04→23:30)
[2023-10-01] MEDS: 0.9 % Sodium Chloride Flush 3 ML SYRINGE IVFLUSH ×2 (08:04→20:06)
--- NOTE | 2023-10-01 10:35 | P.PNIM_ITS ---
Subjective Subjective Date of Service: 10/01/23 Interval History: Resting comfortably eating breakfast offers no acute complaints of nausea vomiting abdominal pain, no diarrhea, no fevers, no chills, no left thigh pain, right foot redness swelling resolved, some discomfort right foot with ambulation otherwise no acute issues. Review of Systems All other system reviewed and negative Physical Exam 2 Vital Signs: Vital Signs: Last Vital Signs Temp 97.6 F 10/01/23 08:00 Pulse 50 10/01/23 08:00 Resp 18 10/01/23 08:00 BP 137/89 10/01/23 08:00 Pulse Ox 97 10/01/23 08:00 O2 Del Method Room Air 10/01/23 08:00 BMI result Body Mass Index 22.8 Const: Other: Gen: Resting comfortably, no acute distress HEENT: sclera anicteric Neck: no jvd Lungs: clear to auscultation bilaterally, no wheeze, Heart: regular rate and rhythm, no murmurs Abd: soft, non-tender, non-distended, no rhonchi, bowel sounds audible Ext: no edema Skin: warm/well-perfused, R foot erythema and swelling resolved less tenderness dorsum of foot and medial malleolus, L thigh phlegmon resolved, no tenderness Neuro: alert and oriented x3, no focal weakness. Psych: appropriate affect Objective Data Active Medications Acetaminophen (Acetaminophen 325 Mg Tablet) 650 mg PO Q6H PRN PRN Reason: Pain, Mild (Pain Scale 1-3) Last Admin: 09/23/23 16:56 Dose: 650 mg Documented By: WONG Clonidine HCl (Clonidine Hcl 0.1 Mg Tablet) 0.1 mg PO BEDTIME [facility]; Protocol Last Admin: 09/30/23 20:55 Dose: 0.1 mg Documented By: WILTON Enoxaparin Sodium (Enoxaparin Sodium 40 Mg/0.4 Ml Syringe) 40 mg SUBCUT Q24H [facility] Last Admin: 09/30/23 15:49 Dose: 40 mg Documented By: MATHEW Ferrous Sulfate (Ferrous Sulfate 324 Mg Tablet.) 324 mg PO DAILY [facility] Last Admin: 10/01/23 08:03 Dose: 324 mg Documented By: MAY Gabapentin (Gabapentin 100 Mg Capsule) 200 mg PO DAILY [facility] Last Admin: 10/01/23 08:03 Dose: 200 mg Documented By: MAY Hydromorphone HCl (Hydromorphone Hcl 2 Mg/Ml Vial) 2 mg IVPUSH Q3H PRN; Protocol PRN Reason: Pain, Severe (Pain Scale 7-10) Last Admin: 10/01/23 05:57 Dose: 2 mg Documented By: REESE Vancomycin HCl 1,000 mg/ (Sodium Chloride) 270 mls @ 270 mls/hr IV Q8H [facility] Last Infusion: 10/01/23 09:24 Dose: Infused Documented By: MAY Melatonin (Melatonin 3 Mg Tablet) 6 mg PO BEDTIME PRN PRN Reason: Insomnia Last Admin: 09/24/23 21:27 Dose: 6 mg Documented By: JAY Methadone HCl (Methadone Hcl 20 Mg/2 Ml Oral.Conc) 70 mg PO DAILY [facility] Last Admin: 10/01/23 08:03 Dose: 70 mg Documented By: MAY Nicotine (Nicotine 21 Mg Patch.Td24) 21 mg TRANSDERMA DAILY [facility] Last Admin: 10/01/23 08:03 Dose: 21 mg Documented By: MAY Ondansetron HCl (Ondansetron Hcl 4 Mg/2 Ml Vial) 4 mg IVPUSH Q8H PRN PRN Reason: Nausea and Vomiting Last Admin: 09/19/23 10:02 Dose: 4 mg Documented By: LILLY Pharmacy Consult (Consult Rx Vancomycin Dosing) 1 each MISCELLANE DAILY PRN PRN Reason: Consult order Sodium Chloride (0.9 % Sodium Chloride Flush 3 Ml Syringe) 3 ml IVFLUSH QSHIFT [facility] Last Admin: 10/01/23 08:04 Dose: 3 ml Documented By: MAY Trazodone HCl (Trazodone Hcl 50 Mg Tablet) 50 mg PO BEDTIME PRN PRN Reason: sleep Last Admin: 09/27/23 20:36 Dose: 50 mg Documented By: PARTH Labs 09/26/23 05:42 10/01/23 05:47 Labs: Laboratory Results - last 24 hr 09/30/23 10/01/23 10/01/23 14:15 05:47 06:11 Hold Purple Top SEE NOTE Estim Creat Clear Calc 82.6 Estimated GFR > 60 Random Vancomycin 15.4 Assessment and Plan (1) MSSA bacteremia: Status: Acute Plan 42yo F with OUD presenting with R foot cellulitis, found to have MSSA bacteremia + T6-T7 osteomyelitis/diskitis/paravertebral abscess 1.MSSA bacteremia, persistent -T6-T7 osteomyelitis/diskitis/paravertebral abscess -vanco/zosyn 09/09-09/21; changed to cefazolin 09/21, restarted vancomycin plan total 6 wk IV antibiotics from 1st negative culture (repeat cultures 09/27 negative times 72 hours.) Will discuss with ID regarding choice of antibiotic -PICC line ordered, since patient is homeless with history of IV drug use, PICC line will be placed once patient is accepted at rehab and has a discharge plan , patient is agreeable to rehab -continue oxy/Dilaudid for pain control 2.OUD -methadone, will wean dose of IV Dilaudid from 2 mg Q 4h to 1.5 mg q.4 hours. 3.HCV - viral load [id number] -outpatient therapy 4.tobacco abuse - NRT DVT prophylaxis Lovenox In my clinical judgment, the patient requires continued hospitalization for the following reasons: IV ABX, for bacteremia and need for PICC line placement and safe disposition. Quality Stroke Does the patient have a stroke diagnosis?: No VTE Prior VTE?: No VTE Risk Level:: Medical - moderate - high VTE Device Contraindication: Treatment Not Indicated VTE Drug Contraindication: N/A - Med Ordered
[2023-10-01] MEDS: HYDROmorphone HCl 2 MG/ML VIAL 1.5 MG IVPUSH ×3 (11:07→21:21)
--- NOTE | 2023-10-01 14:18 | MHC.RECOVRN ---
Met with pt in 352 to follow up and provide support. Pt reports methadone increase has helped but continues to experience excessive diaphoresis throughout the night. Pt is open to increasing dose if appropriate. Pt denies other questions or concerns. Savita Quintanilla APRN, aware.
[2023-10-01 14:40] LABS: Vancomycin Trough 16.3 mcg/mL (10.0-20.0)
--- NOTE | 2023-10-01 15:50 | HO.PICC ---
PICC Line Insertion NPICC Diagnosis: Right foot wound Indication: prison antibiotics Pertinent Labs: reviewed Technique: Following informed consent including risks, benefits and alternatives and using sterile technique including cap and mask, sterile gown, glove and drape, the right arm was prepped and draped in the usual sterile fashion of full barrier technique with G. Following completion of [place] Protocol the skin and soft tissues were anesthetized with 1% Lidocaine plain. Using ultrasound guidance, the right basilic vein access but unable to wire and a second attempt on the right brachial vein was obtained by this RN. Over an 0.018 wire through peel-away sheath, a 4 equatorial guinean single lumen PASV PICC line was positioned. Catheter length is 41 internal length, external length at the 0 cm external artis, for a total trimmed length of 41 cm. The procedure was performed in S272. Tip verification was performed by Shahla Santos with Sherlock 3CG. Tip located in SVC. Ultrasound was used to document vein patency and for needle entry. A formal ultrasound picture and cardiac rhythm strip was recorded. Vascular Reception Agent has released the line for use and it is currently dressed with a StatLock, Tegaderm, and CHG disc. Verification has been performed for blood return and line patency. Arm Circumference: 24 cm Equipment: Bard PowePICC Solo Catheter with Sherlock 3 CG Tip Catheter Type: 4 equatorial guinean Single lumen PASV PICC Lot #: [id number]
[2023-10-01] MEDS: Heparin Sodium,Porcine Flush 50 UNITS/5 ML SYRINGE IVFLUSH ×2 (16:51→23:32)
[2023-10-01] MEDS: Enoxaparin Sodium 40 MG/0.4 ML SYRINGE SUBCUT (16:51)
[2023-10-01] MEDS: cloNIDine HCL 0.1 MG TABLET PO (20:05)
[2023-10-01 23:32] VITALS: BP 108/71; PULSE 55; RESP 16; TEMP 36.7; O2SAT 96
[2023-10-02] MEDS: HYDROmorphone HCl 2 MG/ML VIAL 1.5 MG IVPUSH ×2 (02:17→07:17)
[2023-10-02 06:34] LABS: Estimated Glomerular Filt Rate > 60
[2023-10-02] MEDS: vancomycin HCL 1,000 MG in 0.9 % Sodium Chloride 250 ML 270 MG IV (07:18)
[2023-10-02 07:51] VITALS: BP 136/77; PULSE 52; RESP 18; TEMP 36; O2SAT 96
[2023-10-02] MEDS: Gabapentin 100 MG CAPSULE 200 MG PO (08:26)
[2023-10-02] MEDS: Nicotine 21 MG PATCH.TD24 TRANSDERMA (08:26)
[2023-10-02] MEDS: Ferrous Sulfate 324 MG TABLET.DR PO (08:26)
[2023-10-02] MEDS: Heparin Sodium,Porcine Flush 50 UNITS/5 ML SYRINGE IVFLUSH (08:26)
[2023-10-02] MEDS: methADONE HCl 20 MG/2 ML ORAL.CONC 70 MG PO (08:26)
--- NOTE | 2023-10-02 11:48 | MHC.RECOVRN ---
Met with pt in 352 after pt informed staff of wanting a self directed discharge. Pt declines [facility], states it's going to cause too many problems. Pt aware of risks of not completing IV abx treatment. Pt agreeable to PO antibiotics, if appropriate. Provider aware. Pt is all set to present to [facility] tomorrow morning with last dose letter. Pt denies other questions or concerns.
[2023-10-02] MEDS: Linezolid 600 MG TABLET PO (12:18)
--- NOTE | 2023-10-02 13:05 | MHC.CM.PN ---
DP: PT WAS ACCEPTED PENDING AUTH AND GUE[facility] PT'S FIRST CHOICE WAS UNABLE TO OFFER A BED. PT DECLINED GOING TO [facility] AND REQUESTS A SELF DIRECTED DISCHARGE. PT HAS DECIDED TO GO AGAINST [facility]. AWARE.
--- NOTE | 2023-10-02 13:13 | P.DS_ITS ---
DS: Providers Provider Date of Service: 10/02/23 Date of admission: 09/19/23 03:22 Primary care physician: Unknown Physician Consults: 09/19/23 03:23 Addiction Medicine Routine Consulting Provider: Addiction Covering Reason for consultation: opioid use disorder 09/20/23 08:54 Consult to Infectious Diseases Routine Consulting Provider: [facility] Infectious Disease Reason for consultation: staphylococcal bacteremia 10/02/23 11:45 Consult to Infectious Diseases Routine Consulting Provider: LISA PLASCENCIA Reason for consultation: bacteremia Has provider been notified: Yes DS: Diagnosis Discharge Diagnosis (1) MSSA bacteremia: Status: Acute DS: Summary Hospital Course Hospital Course: History of presenting illness: Date of Service: 09/19/23 Chief Complaint: Foot infection This is a 42-year-old female with pertinent history of IV drug use disorder presents to the emergency department for evaluation of right foot infection. Patient states it started when days prior to presentation. She noticed swelling of her right foot over the ankle with associated redness and pain. It has been progressive over the last 24 hours. No purulent drainage. Has associated chills, no documented fever. Admits to using IV opioids. No fever, nausea, vomiting, chest discomfort, palpitations, shortness of breath, changes in urinary or bowel habits. In the emergency department, patient was initiated on empiric IV antibiotics. Hospital course: 42yo F with OUD presenting with R foot cellulitis, found to have MSSA bacteremia + T6-T7 osteomyelitis/diskitis/paravertebral abscess 1.MSSA bacteremia, admitted for fevers, right foot /ankle pain and back pain, diagnosed to have MSSA bacteremia, MRI back showed T6-T7 osteomyelitis/diskitis/rt.paravertebral abscess Underwent drainage of abscess by IR fluid gm stain culture sensitivity positive for staph aureus, likely source of bacteremia, was treated with vanco/zosyn 09/09-09/21; changed to cefazolin 09/21, continue to have persistent bacteremia on 3 set of blood cultures therefore restarted vancomycin , repeat blood cultures came back negative, patient agreed for rehab therefore PICC line was placed however on day of discharge patient refused to go to rehab at [facility] and is adamant to be discharged home therefore PICC line removed patient is being discharged against medical advice on suboptimal antibiotic therapy of linezolid 600 mg twice daily x 4 weeks, patient informed regarding risk of worsening infection, sepsis and , she showed understanding and left against medical advise recommend to return to check with recurrent fevers, chills or back pain, right foot cellulitis, redness has resolved, left thigh phlegmon also resolved. 2. Opiate use disorder, was on Suboxone at home and was using heroin/fentanyl 1- 2 packs daily, patient complained of withdrawal symptoms was seen by Addiction Team and started on methadone, Suboxone was discontinued, recommend outpatient follow-up at methadone clinic. 3.HCV - viral load [id number], recommend outpatient therapy 4.tobacco abuse - recommend to continue nicotine patch counseling done strongly recommend to abstain from smoking. Time Attestation Discharge coordination time: Greater than 30 minutes Quality: Safe Use of Opioids Does Pt have an Active Cancer Diagnosis on the Problem List?: No Quality: Stroke Does the patient have a stroke diagnosis?: No Physical Exam Vital Signs: Vital Signs: Last Vital Signs Temp 96.8 F 10/02/23 07:51 Pulse 52 10/02/23 07:51 Resp 18 10/02/23 07:51 BP 136/77 10/02/23 07:51 Pulse Ox 96 10/02/23 07:51 O2 Del Method Room Air 10/02/23 07:51 BMI result Body Mass Index 22.8 Const: Other: Gen: Resting comfortably, no acute distress HEENT: sclera anicteric Neck: no jvd Lungs: clear to auscultation bilaterally, no wheeze, Heart: regular rate and rhythm, no murmurs Abd: soft, non-tender, non-distended, no rhonchi, bowel sounds audible Ext: no edema Skin: warm/well-perfused, R foot erythema and swelling resolved ,tenderness dorsum of foot and medial malleolus improved, L thigh phlegmon resolved, no tenderness Neuro: alert and oriented x3, no focal weakness. Psych: appropriate affect DS: Data Data Completed and Pending Labs on day of discharge: Laboratory Results - last 24 hr 10/01/23 10/02/23 14:08 05:17 Hold Purple Top SEE NOTE Creatinine 0.68 Estim Creat Clear Calc 79.0 Estimated GFR > 60 Vancomycin Trough 16.3 Discharge Plan Discharge Anticipated Discharge Date/Time: 10/02/23 12:42 Patient Disposition: Left Against Medical Advice Discharge Diagnosis: MSSA bacteremia Referrals: Physician,Unknown J [Primary Care Provider] - 1 Week Discharge Medications: New linezolid 600 mg Tablet 600 mg PO Q12H Qty: 55 0RF nicotine 21 mg/24 hr Patch 24 Hour 21 mg transdermal DAILY Qty: 28 0RF Continued trazodone 50 mg tablet 50 mg PO BEDTIME PRN (Reason: sleep) Qty: 10 0RF clonidine HCl 0.1 mg tablet 0.1 mg PO BEDTIME Qty: 7 0RF Discontinued buprenorphine-naloxone [Suboxone] 8-2 mg film 1 film sublingual BID Qty: 14 0RF Discharge Orders: Discharge Order (Routine); Ordered 10/02/23 Ordered By: Ruba Nj Diet: Advance to usual diet Activity on Discharge: As tolerated Stand Alone Forms: Patient Portal Discharge page Care Plan Goals: MSSA bacteremia recommended IV antibiotics for 4 weeks however patient declined to go to rehab facility Recommend to take linezolid 600 mg 1 tablet twice daily for total 4 weeks Strongly recommend to abstain from IV drug use Use nicotine patch for withdrawal Follow up at [facility] tomorrow morning for methadone Health Concerns: Opiate use disorder Tobacco use Discitis/right T7 paravertebral abscess Plan of Treatment: Outpatient follow-up with primary care physician call for appointment in 1-2 weeks Assessment: As above Discharge Date/Time: 10/02/23 15:39
--- NOTE | 2023-10-02 15:20 | HO.REMOVAL ---
Removal of PICC/Midline Removal of PICC/Midline: Removal of PICC: 1. Date: 10/02/2023 2. Reason removed: PT LEAVING AMA 3. Inserted length: 4 FR SINGLE LUMEN PASV PICC LINE--41CM (RIGHT BASILIC VEIN) 4. Removed length: INTACT 4 FR SINGLE LUMEN PASV PICC LINE--41CM (RIGHT BASILIC VEIN) 5. A dressing was placed over the site upon removal. No edema or bleeding at the site. PT TOLERATED THIS REMOVAL OF THE PICC WELL.
--- NOTE | 2023-10-12 02:28 | PC.NURSE ---
Late entry- On 09/24/23, pt c/o pain PRN Dilaudid 2 mg was administered by magazine writer.
--- NOTE | 2023-11-04 16:33 | P.CDIM_ITS ---
PROVIDER RESPONSE TEXT: To clarify, the appropriate diagnosis supported by the clinical indicators: Sepsis is/was present and is a clinical diagnosis based on: sepsis resolved prior to dc QUERY TEXT: PHYSICIAN'S DOCUMENTATION REQUEST Date of Query: 10/11/2023 09:34 AM EST Patient Name: Norma Chiang Admit Date: 09/19/2023 RETROSPECTIVE QUERY Dear Ruba Nj, A review of the medical record indicates additional documentation may be needed. Please review below and update the documentation accordingly. Clinical indicators: Ed: 09/19 - Clinical impression - Cellulitis of right foot, Sepsis H&P: Acute non-purulent cellulitis of the right foot, will admit for empiric IV antibiotics due to ex tensive cellulitis. No sepsis. PN: 09/20-09/26 - Sepsis, GPC bacteremia, cellulitis right foot, IV Vancomycin, pip-carina ID: [id number] - Sepsis, likely 4-6 weeks IV antibiotics, continue Vanco for now. MSSA bacteremia. Discharge summary: 10/02 - MSSA bacteremia Consistency of a documented diagnosis within the medical record: Sepsis is/was present and is a clinical diagnosis based on resolved, possible, probable, suspected etc. After study (the condition) has been ruled out Other (explain) Clinically unable to determine (explain) Thank you, Margarita Temple, CCS, CDIS Use of terms such as suspected, likely, concern for, or probable (associated with a specific diagnosi s that is being evaluated, monitored, or treated as if it exists) are acceptable and can be coded in the inpatient se tting, when documented at the time of discharge. Please use your independent medical judgment in providing your response. THIS QUERY IS PART OF THE PERMANENT MEDICAL RECORD
== END 2023-10-02 15:39 | disposition left against medical advice (07) | DRG 720 ==
LOC: HO.ED 03:15 → HO.EDOVER 03:35 → HO.S3 14:17
PROVIDERS: Family Medicine; Hospitalist; Internal Medicine; Radiology Diagnostic Radiology; Admitting Provider Student in an Organized Health Care Education/Training Program; Emergency Provider Student in an Organized Health Care Education/Training Program; Visit Provider Hospitalist
PROC: 009U3ZZ Drainage of Spinal Canal, Percutaneous Approach (ICD-10-PCS; principal; 2023-09-23 15:00)
PROC: 02HV33Z Insertion of Infusion Device into Superior Vena Cava, Percutaneous Approach (ICD-10-PCS; principal; 2023-10-01 14:30)
DX: A41.9 Sepsis, unspecified organism (principal); M86.171 Other acute osteomyelitis, right ankle and foot; L03.115 Cellulitis of right lower limb; D50.9 Iron deficiency anemia, unspecified; F11.20 Opioid dependence, uncomplicated; B19.20 Unspecified viral hepatitis C without hepatic coma; M46.24 Osteomyelitis of vertebra, thoracic region; E87.6 Hypokalemia; F19.10 Other psychoactive substance abuse, uncomplicated; F17.210 Nicotine dependence, cigarettes, uncomplicated; B95.61 Methicillin susceptible Staphylococcus aureus infection as the cause of diseases classified elsewhere; Z59.02 Unsheltered homelessness; Z71.6 Tobacco abuse counseling; Z79.899 Other long term (current) drug therapy
CPT/HCPCS: 10009; 36415; 36573; 72040; 72072; 72100; 72157; 73600; 73620; 73720; 73723; 80048; 80053; 80202; 81025; 82565; 82728; 83540; 83605; 83615; 85025; 85027; 85045; 85610; 85652; 85730; 86140; 86704; 86706; 86803; 87040; 87070; 87073; 87077; 87147; 87186; 87205; 87340; 87389; 87522; 93306; 99152; 99285; A9585; C1751; J0690; J1170; J1642; J1650; J2270; J2405; J2543; J3370; J3371

== ENCOUNTER → 2023-09-19 02:25 | Outpatient (BNV) | payer OTHER, SELFPAY | PROVIDERS: Emergency Provider Student in an Organized Health Care Education/Training Program; Visit Provider Student in an Organized Health Care Education/Training Program | DX: R78.81 Bacteremia (principal); B95.61 Methicillin susceptible Staphylococcus aureus infection as the cause of diseases classified elsewhere | CPT/HCPCS: 99222; 99232; 99233; 99239; 99499 ==

== ENCOUNTER 2023-09-19 03:22 | Outpatient (BNV) | payer OTHER, SELFPAY | END 2023-09-23 16:44 | PROVIDERS: Admitting Provider Student in an Organized Health Care Education/Training Program; Emergency Provider Student in an Organized Health Care Education/Training Program; Visit Provider Radiology Diagnostic Radiology | DX: M46.24 Osteomyelitis of vertebra, thoracic region (principal); G06.1 Intraspinal abscess and granuloma | CPT/HCPCS: 10009 ==

== ENCOUNTER 2023-09-19 03:22 | Outpatient (BNV) | payer OTHER, SELFPAY | END 2023-09-20 07:00 | PROVIDERS: Admitting Provider Student in an Organized Health Care Education/Training Program; Emergency Provider Student in an Organized Health Care Education/Training Program; Visit Provider Internal Medicine Cardiovascular Disease | DX: I36.1 Nonrheumatic tricuspid (valve) insufficiency (principal); I34.89 Other nonrheumatic mitral valve disorders | CPT/HCPCS: 93306 ==

== ENCOUNTER → 2023-09-19 03:22 | Outpatient (BNV) | payer OTHER, SELFPAY | PROVIDERS: Admitting Provider Student in an Organized Health Care Education/Training Program; Emergency Provider Student in an Organized Health Care Education/Training Program; Visit Provider Internal Medicine | DX: A41.9 Sepsis, unspecified organism (principal); F19.90 Other psychoactive substance use, unspecified, uncomplicated; F11.90 Opioid use, unspecified, uncomplicated; R76.8 Other specified abnormal immunological findings in serum | CPT/HCPCS: 99222 ==

== ENCOUNTER → 2023-09-19 03:22 | Outpatient (BNV) | payer OTHER, SELFPAY | PROVIDERS: Admitting Provider Student in an Organized Health Care Education/Training Program; Emergency Provider Student in an Organized Health Care Education/Training Program; Visit Provider Nurse Practitioner Psychiatric/Mental Health | DX: F11.90 Opioid use, unspecified, uncomplicated (principal) | CPT/HCPCS: 99231; 99499 ==

== ENCOUNTER 2023-11-02 02:10 | Inpatient (IN) | payer SELFPAY ==
[2023-11-02] VITALS (7 sets, daily range): BP systolic 114–157; BP diastolic 74–99; PULSE 74–120; RESP 14–20; TEMP 36–37.2; O2SAT 97–100; BMI 21.9; BMI 23.3
--- NOTE | ~2023-11-02 | XR_ITS ---
EXAMINATION: XR RIBS, LEFT CLINICAL INFORMATION: Shortness of breath and pain COMPARISON: Previous chest CT procedure 09/23/2023 TECHNIQUE: 3 views of the left ribs were obtained. FINDINGS: Lungs are clear. No consolidation, pneumothorax, or pleural effusion. The cardiomediastinal silhouette and pulmonary vasculature are normal. Old left posterior lateral sixth rib fracture. Old anterior left 11th rib fracture. No acute fracture. XR/XR ribs LT min 3V w CXR1V IMPRESSION: Old left rib fractures. No acute fracture.
--- NOTE | ~2023-11-02 | CT_ITS ---
EXAMINATION: CT THORACIC SPINE WITH CONTRAST CLINICAL INFORMATION: Worsening discitis osteomyelitis at T6-T7. COMPARISON: Thoracic spine MRI 09/20/2023. TECHNIQUE: Building Maintenance Superintendent images were obtained. CT imaging of the thoracic spine was performed after the intravenous administration of 85 mL Omnipaque 350. Data was reformatted into multiplanar images at the acquisition workstation. This CT examination was performed using dose optimization techniques as appropriate, variously including the following: *Automated exposure control *Adjustment of mA and/or kV according to patient size (this includes techniques or standardized protocols for targeted exams where dose is matched to indication/reason for exam; i.e. extremities or head) *Use of iterative reconstruction technique DLP: 511 mGy-cm FINDINGS: There is progressive destruction of the T7 vertebral body with impaction of the upper and lower endplates resulting in 90% vertebral height loss anteriorly. Consequently there is focal kyphotic angulation centered at T7. There are also erosive osseous changes involving the lower T6 and upper T8 endplates. Canal patency is not well assessed on this examination due to inherent limitations of CT without intrathecal contrast. There is some buckling of the lower posterior corner of the T7 vertebral body. No overt retropulsion and no evidence of bony canal compromise. There is a peripherally enhancing paraspinal fluid collection visualized on axial image 93 of 220 series 4 that measures approximately 1 cm in maximal transaxial dimension and there are also some associated inflammatory changes within the paraspinal soft tissues at the site of the spinal infection. Vertebral body heights and alignment are otherwise maintained. CT/CT thoracic spine w IV con IMPRESSION: There is progressive destruction of the T7 vertebral body with impaction of the upper and lower endplates resulting in 90% vertebral height loss anteriorly. Consequently there is focal kyphotic angulation centered at T7. There are also erosive osseous changes involving the lower T6 and upper T8 endplates. No overt retropulsion and no evidence of bony canal compromise. There is a peripherally enhancing paraspinal fluid collection at the site of the spinal infection that measures approximately 1 cm in maximal transaxial dimension.
--- NOTE | ~2023-11-02 | US_ITS ---
EXAMINATION: US VENOUS ULTRASOUND WITH DOPPLER LOWER EXTREMITY, RIGHT CLINICAL INFORMATION: Swelling COMPARISON: None available. TECHNIQUE: Ultrasound of the deep veins is performed from the hip to the calf with compression sonography and color and pulse Doppler assessment. Spectral analysis with color-flow imaging is performed. FINDINGS: There is normal venous compression and respiratory variation and augmented flow. The visualized common femoral vein, superficial femoral vein, profunda femoral vein, popliteal vein, and the trifurcation region shows no evidence of deep venous thrombosis. There is no significant popliteal fossa cyst. US/US venous duplex LE RT IMPRESSION: No DVT demonstrated in the right lower extremity.
--- NOTE | 2023-11-02 04:52 | PC.NURSE ---
Pt reports increased left sided rib pain, 10/10, cough and chest pain. Denies any trauma to the area. Labs and x-ray ordered.
--- NOTE | 2023-11-02 04:54 | ECG_ITS ---
Test Reason : CHEST PAIN Blood Pressure : / mmHG Vent. Rate : 082 BPM Atrial Rate : 082 BPM P-R Int : 080 ms QRS Dur : 124 ms QT Int : 406 ms P-R-T Axes : 098 034 -87 degrees QTc Int : 474 ms Sinus rhythm with short NH Non-specific intra-ventricular conduction delay Minimal voltage criteria for LVH, may be normal variant ( Sokolow-Ibarra ) Nonspecific ST and T wave abnormality Abnormal ECG When compared with ECG of 18-JAN-2016 20:03, Nonspecific ST and T wave abnormality present Referred By: Generic ED Physician Electronically Signed By:WARNER GOMEZ
[2023-11-02 05:12] LABS: Basophils Percent Auto 0.2 % (0-2); Eosinophils Percent Auto 0.6 % (0-4); Hemoglobin 9.3 g/dl (12.0-16.0); Imm Gran Abs Auto 0.02 X10*3/uL (0.00-0.03); Imm Gran Pct Auto 0.3 % (0.0-0.4); Lymphocytes Absolute Auto 1.7 X10*3/uL (1.2-4.9); Lymphocytes Percent Auto 27.2 % (20-40); MANUAL DIFF FLAG NO; Mean Corpuscular HGB Conc 32.1 g/dl (31.0-35.0); Mean Corpuscular Hemoglobin 27.7 pg (27.0-33.0); Mean Corpuscular Volume 86.3 fL (80.0-98.0); Mean Platelet Volume 8.5 fL (9.4-12.3); Monocytes Absolute Auto 0.5 X10*3/uL (0.1-1.2); Monocytes Percent Auto 8.4 % (2-11); Neutrophils Percent Auto 63.3 % (45-73); Platelet Count 132 X10*3/uL (160-400); Red Blood Count 3.36 X10*6/uL (4.20-5.50); Red Cell Distribution Width 17.1 % (11.0-16.0); White Blood Count 6.3 X10*3/uL (4.8-10.8)
[2023-11-02 05:31] LABS: Alanine Aminotransferase 34 U/L (0-31); Albumin Level 3.7 g/dL (3.5-5.0); Alkaline Phosphatase 60 U/L (39-117); Anion Gap 12 (12-20); Aspartate Amino Transferase 28 U/L (5-31); Bilirubin Total 0.3 mg/dL (0.0-1.0); Blood Urea Nitrogen 24 mg/dL (9-16); Calcium 9.3 mg/dL (8.4-10.2); Carbon Dioxide 27 mmol/L (22-29); Chloride 104 mmol/L (96-108); Creatinine Clr Calc Pharmacy 82.5; Estimated Glomerular Filt Rate > 60; Glucose Random 88 mg/dL (60-115); Potassium 4.2 mmol/L (3.3-5.1); Sodium 139 mmol/L (135-145); Total Protein 7.5 g/dL (6.5-8.0)
[2023-11-02 05:33] LABS: Troponin-I High Sensitivity 12.2 ng/L (<3.5-17.0)
--- NOTE | 2023-11-02 06:07 | ED_ITS ---
HPI - General Adult General Chief complaint: General Medical Stated complaint: Foot pain/swelling Time Seen by Provider: 11/02/23 05:48 Source: patient Mode of arrival: ambulatory Limitations: no limitations History of Present Illness HPI narrative: Patient comes to the emergency room complaining of worsening right lower extremity pain swelling and also worsening mid back pain, despite being on p.o. antibiotics (linezolid). Patient is known IV drug user. Patient denies any fever chills. Patient states that she has been taking linezolid 600 mg twice a day as prescribed. Patient left against medical advise from this facility approximately 1 month ago. Patient was being treated for sepsis bacteremia, T6- T7 osteomyelitis, diskitis and paravertebral abscess which was drained by IR which grew Staph. In that previous admission, the plan was to send the patient to rehab where she could get antibiotics via PICC line. However, patient left against medical advice and was discharged with p.o. antibiotics linezolid 600 mg. Patient denies any urinary/fecal incontinence/retention. No lower extremity weakness. Related Data Previous Rx's Medication Instructions Recorded clonidine HCl 0.1 mg tablet 0.1 mg PO BEDTIME #7 tabs 08/26/23 trazodone 50 mg tablet 50 mg PO BEDTIME PRN sleep #10 tabs 08/26/23 linezolid 600 mg tablet 600 mg PO Q12H #55 tabs 10/02/23 nicotine 21 mg/24 hr daily 21 mg transdermal DAILY #28 ea 10/02/23 transdermal patch Allergies Allergy/AdvReac Type Severity Reaction Status Date / Time No Known Allergies Allergy Verified 11/02/23 02:42 Review of Systems 2 Review of Systems: Constitutional : No Weight loss, No Fever, No Chills, No Night Sweats, No Fatigue, No Malaise ENT/Mouth : No Hearing loss, No Ear Pain, No Nasal Congestion, No Sinus Pain, No Hoarseness, No sore throat, No Rhinorrhea, No Swallowing Difficulty Eyes: No Eye Pain, No Swelling, No Redness, No Foreign Body, No Discharge, No Vision Changes Cardiovascular : No Chest Pain, No SOB, No Dyspnea on Exertion, No Orthopnea, No Edema, No Palpitations Respiratory : No Cough, No Sputum, No Wheezing, No Smoke Exposure, No Dyspnea Gastrointestinal : No Nausea, No Vomiting, No Diarrhea, No Constipation, No abdominal Pain, No Hematochezia, No Melena Genitourinary : no irregular bleeding, No Dysuria, No Urinary Frequency, No Hematuria, No Urinary Incontinence, No Urgency, No Flank Pain, No Urinary Flow Changes, No Hesitancy Musculoskeletal : Complaining of worsening mid back pain, No Myalgias, No Joint Swelling Skin : Complaining of cellulitis/swelling in the right lower extremity despite being on antibiotics Neuro : No Weakness, No Numbness, No Paresthesias, No Loss of Consciousness, No Dizziness, No Headache Psych : No Anxiety/Panic, No Depression, No SI/HI/AH/VH, No Social Issues, Heme/Lymph: No Bruising, No Bleeding,No Lymphadenopathy Endocrine : No Polyuria, No Polydipsia, No Temperature Intolerance PMFSH Past Medical History Medical History Polysubstance use disorder Opioid use disorder Hepatitis C antibody positive in blood Cocaine abuse Heroin abuse PTSD (post-traumatic stress disorder) Depression Anxiety Opiate abuse, continuous Social History Social History Household Members: Spouse Housing: Homeless Do you presently have visiting nurse or other home services: No Alcohol intake: never Patient Tobacco Use Status: Current everyday Tobacco user Tobacco use type: Cigarette Cigarette Packs Per Day: 1 Cigarettes Per Day: 20.0 Years Smoked: 15 Smoked in Last 30 Days: Yes Second Hand Smoke Exposure: Yes Use of substances other than those prescribed or required for medical reasons: Yes Substance Use Type: Crack/Cocaine and Heroin Substance Use Frequency: Chronic Longstanding Last Used Substance: Days (ago) Advance Directives: No Advance Directives Information Provided: Yes Patient : No service: No Physical Exam ED Vital Signs: Vital Signs - 24 hr 11/02/23 02:32 11/02/23 02:59 11/02/23 04:46 Temperature 98.7 F 98.2 F 98.9 F Pulse Rate 120 H 96 81 Respiratory Rate 20 14 14 Blood Pressure 157/97 H 147/99 H 122/74 Pulse Oximetry 98 97 97 Oxygen Delivery Method Room Air Room Air BMI result Body Mass Index 21.9 Const Other: Appearance: Alert. Oriented X3. Patient seems significantly uncomfortable Eyes: Pupils equal, round and reactive to light. ENT: Pharynx normal. Neck: Normal inspection. Neck supple. No lymph nodes noted. No crepitus CVS: Normal heart rate and rhythm. Pulses normal. Normal S1 and S2 Respiratory: No respiratory distress. Breath sounds normal. No Wheezing. No rales Abdomen: Soft and nontender. No rigidity. No distention. Back: Pain to palpation around the midthoracic area in the spine, and left ribs Skin: Skin warm and dry. Normal skin color. Normal skin turgor. CT lower extremity below Extremities: His right lower extremity is significantly more swollen than the left leg, erythematous, does not seem to be significant painful to touch. Neuro: Oriented X 3. No motor deficit. No sensory deficit. Moving all extremities. No slurred speech. CN 2 through 12 grossly intact Psych: calm, cooperative, normal affect Course Course Course Narrative: -patient left against medical advise less than a month ago. Patient has been taking p.o. linezolid as prescribed. Despite being on p.o. antibiotics, patient failed outpatient treatment. -since patient was discharged, patient has been having worsening symptoms in her back and now it seems the patient has an infection/cellulitis in the right lower extremity. -patient being given IV antibiotics, pain medication, fluids -ultrasound of the lower extremity pending -CT scan of the thoracic spine pending. Patient may need a repeat MRI -overall, once the workup is complete, patient likely to be admitted -patient has no fever chills, no blood pressure drop, at this time, sepsis is not suspected. Medical Decision Making Medical Decision Making MDM Narrative: -patient's white blood cell count normal. Lactic acid 1.3. Sepsis not suspected. -patient empirically being treated with IV fluids, vanco and Zosyn. -ultrasound of the lower extremity pending -CT scan of the thoracic spine pending -sign-out given to Dr. Brown Lab Data 11/02/23 05:06 11/02/23 05:06 Labs: Lab Results 11/02/23 11/02/23 Range/Units 05:06 06:40 WBC 6.3 (4.8-10.8) X10*3/uL RBC 3.36 L (4.20-5.50) X10*6/uL Hgb 9.3 L (12.0-16.0) g/dl Hct 29.0 L (37.0-47.0) % MCV 86.3 (80.0-98.0) fL MCH 27.7 (27.0-33.0) pg MCHC 32.1 (31.0-35.0) g/dl RDW 17.1 H (11.0-16.0) % Plt Count 132 L D (160-400) X10*3/uL MPV 8.5 L (9.4-12.3) fL Immature Gran % (Auto) 0.3 (0.0-0.4) % Neut % (Auto) 63.3 (45-73) % Lymph % (Auto) 27.2 (20-40) % [place] % (Auto) 8.4 (2-11) % Eos % (Auto) 0.6 (0-4) % Baso % (Auto) 0.2 (0-2) % Lymph # (Auto) 1.7 (1.2-4.9) X10*3/uL [place] # (Auto) 0.5 (0.1-1.2) X10*3/uL Eos # (Auto) 0.0 (0.0-0.4) X10*3/uL Baso # (Auto) 0.0 (0.0-0.2) X10*3/uL Abs Immat Gran (auto) 0.02 (0.00-0.03) X10*3/uL Absolute Neuts (auto) 4.0 (2.0-8.3) x10*3/uL Absolute Nucleated RBC 0.000 (0.0-0.012) X10*3/uL Nucleated RBC % (auto) 0.0 (0.0-0.2) /100WBC ESR 44 H (0-20) MM/HR Sodium 139 (135-145) mmol/L Potassium 4.2 (3.3-5.1) mmol/L Chloride 104 (96-108) mmol/L Carbon Dioxide 27 (22-29) mmol/L Anion Gap 12 (12-20) BUN 24 H (9-16) mg/dL Creatinine 0.71 (0.5-1.4) mg/dL Estim Creat Clear Calc 82.5 Estimated GFR > 60 Random Glucose 88 (60-115) mg/dL Lactic Acid 1.3 (0.5-2.0) mmol/L Calcium 9.3 (8.4-10.2) mg/dL Total Bilirubin 0.3 (0.0-1.0) mg/dL AST 28 (5-31) U/L ALT 34 H (0-31) U/L Alkaline Phosphatase 60 (39-117) U/L Troponin I High Sens 12.2 (<3.5-17.0) ng/L C-Reactive Protein 0.85 H (< or = 0.50) mg/dL Total Protein 7.5 (6.5-8.0) g/dL Albumin 3.7 (3.5-5.0) g/dL Discharge Plan Discharge Clinical Impression: Discitis thoracic region, Cellulitis of extremity Patient Disposition: Still a Patient Prescriptions: No Action linezolid 600 mg Tablet 600 mg PO Q12H Qty: 55 0RF nicotine 21 mg/24 hr Patch 24 Hour 21 mg transdermal DAILY Qty: 28 0RF trazodone 50 mg tablet 50 mg PO BEDTIME PRN (Reason: sleep) Qty: 10 0RF clonidine HCl 0.1 mg tablet 0.1 mg PO BEDTIME Qty: 7 0RF
[2023-11-02 06:19] LABS: C Reactive Protein 0.85 mg/dL (< or = 0.50)
--- NOTE | 2023-11-02 06:29 | PC.NURSE ---
Failed attempt at obtaining an IV line. Pt refused second RN attempt. Pt is requesting an U/S IV line. Dr. William gutierrez.
[2023-11-02 06:53] LABS: Erythrocyte Sedimentation Rate 44 MM/HR (0-20)
[2023-11-02 07:02] LABS: Lactic Acid 1.3 mmol/L (0.5-2.0)
--- NOTE | 2023-11-02 07:53 | PC.NURSE ---
Dr Brown at bedside to attempt IV placement at this time
[2023-11-02 08:16] LABS: Appearance Urine Cloudy; Color Urine Yellow; Glucose Urine UA Negative (Negative); Leukocyte Esterase Urine Small (1+) (Negative); Nitrite Urine Negative (Negative); PH 7.5 (5.0-9.0); Specific Gravity - Urine 1.015 (1.005-1.025); UMIC TRIGGER UACC YES; Urine Blood Negative (Negative); Urine Ketones Negative (Negative); Urine Protein Negative (Neg-Trace)
[2023-11-02 08:18] LABS: Amphetamine Screen Urine Not Detected (Not Detect); Barbiturates, Urine Not Detected (Not Detect); Benzodiazepines Screen Urine Not Detected (Not Detect); Cannabinoid Screen Urine POSITIVE (Not Detect); Cocaine Screen Urine POSITIVE (Not Detect); Fentanyl, urine POSITIVE (Not Detect); Opiate Screen Urine POSITIVE (Not Detect); Phencyclidine Screen Urine Not Detected (Not Detect)
[2023-11-02 08:22] LABS: Bacteria Urine None Seen (None Seen); Hyaline Casts Urine 0-2 /LPF (0-2); RBC Urine 0-2 /HPF (0-2); UACC Culture Trigger YES
--- NOTE | 2023-11-02 09:03 | PC.NURSE ---
18F 7cm R Femoral placed by Dr Brown with u/S guidance.
[2023-11-02] MEDS: Ketorolac Tromethamine 30 MG/ML VIAL IVPUSH (09:13)
[2023-11-02] MEDS: Piperacillin Sodium/Tazobactam 3.375 GM in 0.9 % Sodium Chloride 50 ML IV (09:14)
[2023-11-02] MEDS: 0.9 % Sodium Chloride 1,000 ML 999 ML IVCONT (09:14)
--- NOTE | 2023-11-02 09:26 | PC.NURSE ---
per Dr. Kevin niño to use femoral line at this time, no need for xray confirmation.
[2023-11-02] MEDS: vancomycin HCL 1,250 MG in 0.9 % Sodium Chloride 250 ML 166.67 MG IV (10:28)
[2023-11-02] MEDS: methADONE HCl 20 MG/2 ML ORAL.CONC 30 MG PO (11:05)
[2023-11-02] MEDS: iohexoL 350 MG/ML 75 ML INFUS..BTL 65 ML IV (11:27)
--- NOTE | 2023-11-02 13:22 | ED.GENADULT ---
HPI - General Adult General Chief complaint: General Medical Stated complaint: Foot pain/swelling Time Seen by Provider: 11/02/23 05:48 Source: patient Mode of arrival: ambulatory Limitations: no limitations Related Data Previous Rx's Medication Instructions Recorded clonidine HCl 0.1 mg tablet 0.1 mg PO BEDTIME #7 tabs 08/26/23 trazodone 50 mg tablet 50 mg PO BEDTIME PRN sleep #10 tabs 08/26/23 linezolid 600 mg tablet 600 mg PO Q12H #55 tabs 10/02/23 nicotine 21 mg/24 hr daily 21 mg transdermal DAILY #28 ea 10/02/23 transdermal patch Allergies Allergy/AdvReac Type Severity Reaction Status Date / Time No Known Allergies Allergy Verified 11/02/23 02:42 [facility] Past Medical History Medical History Polysubstance use disorder Opioid use disorder Hepatitis C antibody positive in blood Cocaine abuse Heroin abuse PTSD (post-traumatic stress disorder) Depression Anxiety Opiate abuse, continuous Social History Social History Household Members: Spouse Housing: Homeless Do you presently have visiting nurse or other home services: No Alcohol intake: never Patient Tobacco Use Status: Current everyday Tobacco user Tobacco use type: Cigarette Cigarette Packs Per Day: 1 Cigarettes Per Day: 20.0 Years Smoked: 15 Smoked in Last 30 Days: Yes Second Hand Smoke Exposure: Yes Use of substances other than those prescribed or required for medical reasons: Yes Substance Use Type: Crack/Cocaine and Heroin Substance Use Frequency: Chronic Longstanding Last Used Substance: Days (ago) Advance Directives: No Advance Directives Information Provided: Yes Patient : No service: No Physical Exam ED Vital Signs: Vital Signs - 24 hr 11/02/23 02:32 11/02/23 02:59 11/02/23 04:46 Temperature 98.7 F 98.2 F 98.9 F Pulse Rate 120 H 96 81 Respiratory Rate 20 14 14 Blood Pressure 157/97 H 147/99 H 122/74 Pulse Oximetry 98 97 97 Oxygen Delivery Method Room Air Room Air 11/02/23 11:04 Temperature 97.7 F Pulse Rate 74 Respiratory Rate 18 Blood Pressure 144/89 H Pulse Oximetry 99 Oxygen Delivery Method Room Air BMI result Body Mass Index 21.9 Medications Administered Discontinued Medications Generic Name Dose Route Start Last Admin Trade Name Erik PRN Reason Stop Dose Admin Vancomycin HCl 1,250 mg/ 250 mls @ 166.667 mls/hr 11/02/23 06:12 11/02/23 12:14 Sodium Chloride IV 11/02/23 07:41 Infused ONCE ONE Infusion Piperacillin Sod/Tazobactam 50 mls @ 100 mls/hr 11/02/23 06:12 11/02/23 10:36 Sod 3.375 gm/ Sodium Chloride IV 11/02/23 06:41 Infused ONCE ONE Infusion Sodium Chloride 1,000 mls @ 999 mls/hr 11/02/23 06:12 11/02/23 10:36 Ns IVCONT 11/02/23 07:12 Infused .Q1H1M ONE Infusion Iohexol 65 ml 11/02/23 11:26 11/02/23 11:27 Iohexol 350 Mg/Ml 75 Ml Infus..Btl IV 11/02/23 11:27 65 ml ONCE ONE Administration Ketorolac Tromethamine 30 mg 11/02/23 06:15 11/02/23 09:13 Ketorolac Tromethamine 30 Mg/Ml Vial IVPUSH 11/02/23 06:16 30 mg ONCE ONE Administration Methadone HCl 30 mg 11/02/23 10:54 11/02/23 11:05 Methadone Hcl 20 Mg/2 Ml Oral.Conc PO 11/02/23 10:55 30 mg ONCE ONE Administration Procedures Central Line Placement Right Femoral: Time Out Performed: Yes MD Prep: mask, gown and gloves Central Line Prep: Povidone-Iodine 1% Local Anesthetic: lidocaine 1% Amount of anesthesia used (mL): 4 Ultrasound Used for Placement: Yes Central Line Lumen Inserted: triple Post Procedure: sutured in place Patient Tolerated Procedure: well Complications: none Medical Decision Making Medical Decision Making MDM Narrative: Like to go with the case from Dr. Thomas at the change of shift. I placed a central line in patient. CT of the T-spine was obtained. It was positive for worsening infection. Patient case discussed with the hospitalist team. Patient is willing to stay. She is being admitted in stable condition. Lab Data 11/02/23 05:06 11/02/23 05:06 Labs: Lab Results 11/02/23 11/02/23 11/02/23 Range/Units 05:06 06:40 08:05 WBC 6.3 (4.8-10.8) X10*3/uL RBC 3.36 L (4.20-5.50) X10*6/uL Hgb 9.3 L (12.0-16.0) g/dl Hct 29.0 L (37.0-47.0) % MCV 86.3 (80.0-98.0) fL MCH 27.7 (27.0-33.0) pg MCHC 32.1 (31.0-35.0) g/dl RDW 17.1 H (11.0-16.0) % Plt Count 132 L D (160-400) X10*3/uL MPV 8.5 L (9.4-12.3) fL Immature Gran % (Auto) 0.3 (0.0-0.4) % Neut % (Auto) 63.3 (45-73) % Lymph % (Auto) 27.2 (20-40) % [place] % (Auto) 8.4 (2-11) % Eos % (Auto) 0.6 (0-4) % Baso % (Auto) 0.2 (0-2) % Lymph # (Auto) 1.7 (1.2-4.9) X10*3/uL [place] # (Auto) 0.5 (0.1-1.2) X10*3/uL Eos # (Auto) 0.0 (0.0-0.4) X10*3/uL Baso # (Auto) 0.0 (0.0-0.2) X10*3/uL Abs Immat Gran (auto) 0.02 (0.00-0.03) X10*3/uL Absolute Neuts (auto) 4.0 (2.0-8.3) x10*3/uL Absolute Nucleated RBC 0.000 (0.0-0.012) X10*3/uL Nucleated RBC % (auto) 0.0 (0.0-0.2) /100WBC ESR 44 H (0-20) MM/HR Sodium 139 (135-145) mmol/L Potassium 4.2 (3.3-5.1) mmol/L Chloride 104 (96-108) mmol/L Carbon Dioxide 27 (22-29) mmol/L Anion Gap 12 (12-20) BUN 24 H (9-16) mg/dL Creatinine 0.71 (0.5-1.4) mg/dL Estim Creat Clear Calc 82.5 Estimated GFR > 60 Random Glucose 88 (60-115) mg/dL Lactic Acid 1.3 (0.5-2.0) mmol/L Calcium 9.3 (8.4-10.2) mg/dL Total Bilirubin 0.3 (0.0-1.0) mg/dL AST 28 (5-31) U/L ALT 34 H (0-31) U/L Alkaline Phosphatase 60 (39-117) U/L Troponin I High Sens 12.2 (<3.5-17.0) ng/L C-Reactive Protein 0.85 H (< or = 0.50) mg/dL Total Protein 7.5 (6.5-8.0) g/dL Albumin 3.7 (3.5-5.0) g/dL Urine Color Yellow Urine Appearance Cloudy Urine pH 7.5 (5.0-9.0) Ur Specific [place] 1.015 (1.005-1.025) Urine Protein Negative (Neg-Trace) mg/dL Urine Glucose (UA) Negative (Negative) mg/dL Urine Ketones Negative (Negative) mg/dL Urine Blood Negative (Negative) Urine Nitrite Negative (Negative) Ur Leukocyte Esterase Small (1+) H (Negative) Urine RBC 0-2 (0-2) /HPF Urine WBC 6-10 H (0-5) /HPF Ur Squamous Epith Cells 11-20 (0-2) /HPF Urine Bacteria None Seen (None Seen) Hyaline Casts 0-2 (0-2) /LPF Urine Opiates Screen POSITIVE H (Not Detect) Urine Fentanyl Screen POSITIVE H (Not Detect) Ur Barbiturates Screen Not Detected (Not Detect) Ur Phencyclidine Scrn Not Detected (Not Detect) Ur Amphetamines Screen Not Detected (Not Detect) U Benzodiazepines Scrn Not Detected (Not Detect) Urine Cocaine Screen POSITIVE H (Not Detect) U Marijuana (THC) Screen POSITIVE H (Not Detect) Critical Care Time Critical Care Time Critical Care Time: Yes Total Critical Care Time: 40 Attestation: I have personally provided 40 minutes of critical care time exclusive of time spent on separately billable procedures. Time includes review of lab data, radiology results, discussion with consultants, and monitoring for potential decompensation. Interventions were performed as documented above Discharge Plan Discharge Clinical Impression: Discitis thoracic region, Cellulitis of extremity Patient Disposition: Admitted As Inpatient Prescriptions: No Action linezolid 600 mg Tablet 600 mg PO Q12H Qty: 55 0RF nicotine 21 mg/24 hr Patch 24 Hour 21 mg transdermal DAILY Qty: 28 0RF trazodone 50 mg tablet 50 mg PO BEDTIME PRN (Reason: sleep) Qty: 10 0RF clonidine HCl 0.1 mg tablet 0.1 mg PO BEDTIME Qty: 7 0RF
--- NOTE | 2023-11-02 14:50 | P.DS_ITS ---
DS: Providers Provider Primary care physician: Unknown Physician DS: Summary Hospital Course Hospital Course: 2yo F with OUD presenting with R foot cellulitis, found to have MSSA bacteremia + T6-T7 osteomyelitis/diskitis/paravertebral abscess 1.MSSA bacteremia, admitted for fevers, right foot /ankle pain and back pain, diagnosed to have MSSA bacteremia, MRI back showed T6-T7 osteomyelitis/diskitis/rt.paravertebral abscess Underwent drainage of abscess by IR fluid gm stain culture sensitivity positive for staph aureus, likely source of bacteremia, was treated with vanco/zosyn 09/09-09/21; changed to cefazolin 09/21, continue to have persistent bacteremia on 3 set of blood cultures therefore restarted vancomycin , repeat blood cultures came back negative, patient agreed for rehab therefore PICC line was placed however on day of discharge patient refused to go to rehab at [place] and is adamant to be discharged home therefore PICC line removed patient is being discharged against medical advice on suboptimal antibiotic therapy of linezolid 600 mg twice daily x 4 weeks, patient informed regarding risk of worsening infection, sepsis and , she showed understanding and left against medical advise recommend to return to check with recurrent fevers, chills or back pain, right foot cellulitis, redness has resolved, left thigh phlegmon also resolved. Physical Exam Vital Signs: Vital Signs: Last Vital Signs Temp 97.7 F 11/02/23 11:04 Pulse 74 11/02/23 11:04 Resp 18 11/02/23 11:04 BP 144/89 H 11/02/23 11:04 Pulse Ox 99 11/02/23 11:04 O2 Del Method Room Air 11/02/23 11:04 BMI result Body Mass Index 21.9 DS: Data Data Completed and Pending Completed studies during hospitalization [Text1]: Procedures Drainage of Spinal Canal, Percutaneous Approach (09/19/23) Fluoroscopy of Spinal Cord (09/19/23) Insertion of Infusion Device into Superior Vena Cava, Percutaneous Approach (09/19/23) Ultrasonography of Superior Vena Cava, Guidance (09/19/23) Labs on day of discharge: Laboratory Results - last 24 hr 11/02/23 11/02/23 11/02/23 05:06 06:40 08:05 WBC 6.3 RBC 3.36 L Hgb 9.3 L Hct 29.0 L MCV 86.3 MCH 27.7 MCHC 32.1 RDW 17.1 H Plt Count 132 L D MPV 8.5 L Immature Gran % (Auto) 0.3 Neut % (Auto) 63.3 Lymph % (Auto) 27.2 [place] % (Auto) 8.4 Eos % (Auto) 0.6 Baso % (Auto) 0.2 Lymph # (Auto) 1.7 [place] # (Auto) 0.5 Eos # (Auto) 0.0 Baso # (Auto) 0.0 Abs Immat Gran (auto) 0.02 Absolute Neuts (auto) 4.0 Absolute Nucleated RBC 0.000 Nucleated RBC % (auto) 0.0 ESR 44 H Sodium 139 Potassium 4.2 Chloride 104 Carbon Dioxide 27 Anion Gap 12 BUN 24 H Creatinine 0.71 Estim Creat Clear Calc 82.5 Estimated GFR > 60 Random Glucose 88 Lactic Acid 1.3 Calcium 9.3 Total Bilirubin 0.3 AST 28 ALT 34 H Alkaline Phosphatase 60 Troponin I High Sens 12.2 C-Reactive Protein 0.85 H Total Protein 7.5 Albumin 3.7 Urine Color Yellow Urine Appearance Cloudy Urine pH 7.5 Ur Specific [place] 1.015 Urine Protein Negative Urine Glucose (UA) Negative Urine Ketones Negative Urine Blood Negative Urine Nitrite Negative Ur Leukocyte Esterase Small (1+) H Urine RBC 0-2 Urine WBC 6-10 H Ur Squamous Epith Cells 11-20 Urine Bacteria None Seen Hyaline Casts 0-2 Urine Opiates Screen POSITIVE H Urine Fentanyl Screen POSITIVE H Ur Barbiturates Screen Not Detected Ur Phencyclidine Scrn Not Detected Ur Amphetamines Screen Not Detected U Benzodiazepines Scrn Not Detected Urine Cocaine Screen POSITIVE H U Marijuana (THC) Screen POSITIVE H Discharge Plan Discharge Clinical Impression: Discitis thoracic region, Cellulitis of extremity Patient Disposition: Admitted As Inpatient
--- NOTE | 2023-11-02 14:53 | PHA.MEDREC ---
Pharmacy Consult ? Medication Reconciliation Pharmacy has completed the medication reconciliation. confirmed with patient and [facility] that she is still on the linezolid. Patient reports that she last took it yesterday morning and has a couple left.
--- NOTE | 2023-11-02 15:02 | P.HPHOSP_ITS ---
History of Present Illness Date of Service: 11/02/23 Chief Complaint: Back pain 42-year-old female with pertinent history of IV drug use disorder who was admitted to the hospital from 09/19/23 to and at that time was treated for cellulitis of the foot, MSSA bacteremia and diskitis and she was to be discharged to a SNF with intermediate antibiotics but on the day of discharged she refused to go. The PICC line was removed and she was discharged on Suboptimal Abx with Zosyn, and she claimed that she took it. Although there is no claim history at a pharmacy. She is here complaining of right foot pain and back pain that has been ongoing, there is no redness in the foot, back pain has also been an ongoing issues, has no weakness or numbness in the legs, no urinary or stool incontinence. WBC is normal, CRP is 0.8, DVT study is negative, CT of spine is reported as follow There is progressive destruction of the T7 vertebral body with impaction of the upper and lower endplates resulting in 90% vertebral height loss anteriorly. Consequently there is focal kyphotic angulation centered at T7. There are also erosive osseous changes involving the lower T6 and upper T8 endplates. No overt retropulsion and no evidence of bony canal compromise. There is a peripherally enhancing paraspinal fluid collection at the site of the spinal infection that measures approximately 1 cm in maximal transaxial dimension. Blood cultures sent are sent. Urine tox screen is positive for opioid, fentanyl, cocaine and canabis Given Zosyn and Vanco in ED Review of Systems 2 Review of Systems: c/o back pain, no fever, pain in th right foot Yes all other systems are reviewed and are negative COUNTS INCLUDE 234 BEDS AT THE [facility] Medical History Polysubstance use disorder Opioid use disorder Hepatitis C antibody positive in blood Cocaine abuse Heroin abuse PTSD (post-traumatic stress disorder) Depression Anxiety Opiate abuse, continuous Social History Household Members: Other Housing: Homeless Do you presently have visiting nurse or other home services: No Alcohol intake: never Patient Tobacco Use Status: Current everyday Tobacco user Tobacco use type: Cigarette Cigarette Packs Per Day: 1 Cigarettes Per Day: 20.0 Years Smoked: 30 Smoked in Last 30 Days: Yes Patient Interested in Nicotine Replacement: Yes Patient Given Instructions on How to Stop Smoking: No Second Hand Smoke Exposure: Yes Use of substances other than those prescribed or required for medical reasons: No Substance Use Type: Crack/Cocaine, Heroin and Marijuana Substance Use Frequency: Daily Last Used Substance: Just Prior to Admission Currently Displaying Signs/Symptoms of Drug Intoxication Withdrawal: No Any prior treatment program specific to substance use: Yes Have you been hit, kicked, punched, or otherwise hurt by someone within the past year? If so, by whom?: No Do you feel safe in your current relationship?: Yes Is there a partner from a previous relationship who is making you feel unsafe now?: No Are you made to feel afraid or neglected: No Advance Directives: No Advance Directives Information Provided: Yes Do you have thoughts of harming others: None Do you have a plan to hurt others: No Plan Recently lost weight without trying: No Nutrition Risks: No Nutritional Risk Patient : No : No Poor oral hygiene: No service: No Meds Allergies Allergy/AdvReac Type Severity Reaction Status Date / Time No Known Allergies Allergy Verified 11/02/23 02:42 Physical Exam 2 Vital Signs and Narrative: Vital Signs: Last Vital Signs Temp 97.7 F 11/02/23 11:04 Pulse 74 11/02/23 11:04 Resp 18 11/02/23 11:04 BP 144/89 H 11/02/23 11:04 Pulse Ox 99 11/02/23 11:04 O2 Del Method Room Air 11/02/23 11:04 BMI result Body Mass Index 21.9 Results Labs 11/02/23 05:06 11/02/23 05:06 Labs: Laboratory Results - last 24 hr 11/02/23 11/02/23 11/02/23 05:06 06:40 08:05 MCV 86.3 MCH 27.7 MCHC 32.1 RDW 17.1 H Plt Count 132 L D MPV 8.5 L Immature Gran % (Auto) 0.3 Neut % (Auto) 63.3 Lymph % (Auto) 27.2 [place] % (Auto) 8.4 Eos % (Auto) 0.6 Baso % (Auto) 0.2 Lymph # (Auto) 1.7 [place] # (Auto) 0.5 Eos # (Auto) 0.0 Baso # (Auto) 0.0 Abs Immat Gran (auto) 0.02 Absolute Neuts (auto) 4.0 Absolute Nucleated RBC 0.000 Nucleated RBC % (auto) 0.0 ESR 44 H Anion Gap 12 Estim Creat Clear Calc 82.5 Estimated GFR > 60 Random Glucose 88 Lactic Acid 1.3 Calcium 9.3 Total Bilirubin 0.3 AST 28 ALT 34 H Alkaline Phosphatase 60 C-Reactive Protein 0.85 H Total Protein 7.5 Albumin 3.7 Urine Color Yellow Urine Appearance Cloudy Urine pH 7.5 Ur Specific [place] 1.015 Urine Protein Negative Urine Glucose (UA) Negative Urine Ketones Negative Urine Blood Negative Urine Nitrite Negative Ur Leukocyte Esterase Small (1+) H Urine RBC 0-2 Urine WBC 6-10 H Ur Squamous Epith Cells 11-20 Urine Bacteria None Seen Hyaline Casts 0-2 Urine Opiates Screen POSITIVE H Urine Fentanyl Screen POSITIVE H Ur Barbiturates Screen Not Detected Ur Phencyclidine Scrn Not Detected Ur Amphetamines Screen Not Detected U Benzodiazepines Scrn Not Detected Urine Cocaine Screen POSITIVE H U Marijuana (THC) Screen POSITIVE H Imaging Radiologist's Impressions: Impressions Ribs X-Ray 11/02/23 05:52 IMPRESSION: Old left rib fractures. No acute fracture. Venous Duplex 11/02/23 07:40 IMPRESSION: No DVT demonstrated in the right lower extremity. Thoracic Spine CT 11/02/23 11:40 IMPRESSION: There is progressive destruction of the T7 vertebral body with impaction of the upper and lower endplates resulting in 90% vertebral height loss anteriorly. Consequently there is focal kyphotic angulation centered at T7. There are also erosive osseous changes involving the lower T6 and upper T8 endplates. No overt retropulsion and no evidence of bony canal compromise. There is a peripherally enhancing paraspinal fluid collection at the site of the spinal infection that measures approximately 1 cm in maximal transaxial dimension. Assessment and Plan (1) Cellulitis of extremity: Status: Acute (2) Discitis thoracic region: Status: Acute (3) MSSA bacteremia: Status: Acute Plan 43 yo F with OUD recent hospitalization for MSSA bacteremia + T6-T7 osteomyelitis/diskitis/paravertebral abscess and was to go to SNF for IV but refused on day of dicharge and signed out AMA and was given Zyvox, she is back with back pain, foot pain, CT of the spine show peristent finding of osteomylitis/diskitis/paravertebral 1. h/o MSSA bacteremia, persistent -T6-T7 osteomyelitis/diskitis/paravertebral abscess from last hospitalization. Was supposed to go to SNF for IV Kefzol but declined and was given Zosyn ins -Zosyn and Vanco, started on 11/02 -ID consult 2.OUD, Addiction med consult, received 30 mg of methadone 3.HCV - last viral load [id number] -outpatient therapy 4.tobacco abuse - NRT DVT prophylaxis Lovenox Need for inpatient: IV Abx for bacteremia and osteomylitis/diskiitis of spine Quality Stroke Does the patient have a stroke diagnosis?: No VTE Prior VTE?: No VTE Risk Level:: Medical - moderate - high VTE Device Contraindication: Treatment Not Indicated VTE Drug Contraindication: N/A - Med Ordered
[2023-11-02] MEDS: 0.9 % Sodium Chloride Flush 3 ML SYRINGE IVFLUSH (16:14)
[2023-11-02] MEDS: Enoxaparin Sodium 40 MG/0.4 ML SYRINGE SUBCUT (16:14)
[2023-11-02] MEDS: oxyCODONE HCl Immed Release 5 MG TABLET PO (16:19)
--- NOTE | 2023-11-02 16:20 | PHA.PROG ---
Admission Date/Time: November 02, 2023 15:28 Indication: BACTEREMIA Weight in k.431 kg Adjusted body weight in K.832 [place] body weight in K.1 Obesity Dosing Indication % IBW: 21.9 Serum Creatinine - Last 168 Hours 11/02/23 05:06 Creatinine 0.71 Estimated CrCl and GFR - Last 168 Hours 11/02/23 05:06 Estim Creat Clear Calc 82.5 Estimated GFR > 60 Vancomycin Loading Dose: 1250 MG Current Vancomycin Dosing Regimen: 750 MG Q12H Vancomycin Monitoring using AUC goal of 400 - 600 range with trough as surrogate marker:417 Date and Time for next Vancomycin Level to be drawn: 11/03 @1800 Pharmacist Comments on Vancomycin Plan:APPROPRIATE LOAD OF 23 MG/KG GIVEN IN ED. Vancomycin dosing will take advantage of [employer] as a clinical decision support tool that uses Bayesian modeling to calculate individual patient's pharmacokinetic parameters and forecast the patient's drug concentration time course with the target goal AUC 24 range of 400 - 600 mg/L/hr.
[2023-11-02] MEDS: Piperacillin Sodium/Tazobactam 4.5 GM in 0.9 % Sodium Chloride 100 ML IV (20:05)
[2023-11-02] MEDS: vancomycin HCL 750 MG in 0.9 % Sodium Chloride 250 ML 265 MG IV (20:52)
[2023-11-03 00:48] VITALS: BP 130/85; PULSE 63; RESP 18; TEMP 36.6; O2SAT 96
[2023-11-03] MEDS: Piperacillin Sodium/Tazobactam 4.5 GM in 0.9 % Sodium Chloride 100 ML IV ×4 (01:16→18:04)
[2023-11-03] MEDS: oxyCODONE HCl Immed Release 5 MG TABLET PO ×4 (01:43→20:33)
[2023-11-03 07:09] VITALS: BP 172/96; PULSE 62; RESP 18; TEMP 36.1; O2SAT 99
[2023-11-03] MEDS: vancomycin HCL 750 MG in 0.9 % Sodium Chloride 250 ML 265 MG IV ×2 (08:08→20:26)
[2023-11-03] MEDS: methADONE HCl 20 MG/2 ML ORAL.CONC 30 MG PO (08:08)
[2023-11-03] MEDS: 0.9 % Sodium Chloride Flush 3 ML SYRINGE IVFLUSH ×3 (08:15→20:26)
--- NOTE | 2023-11-03 08:19 | MHC.CM.PN ---
PT IS HOMELESS AND WILL LIKELY NEED LT IV ABX SHE IS ALSO ON METHADONE REFERRALS SENT TO [facility] AND [facility], THE ONLY FACILITIES THAT WILL ACCEPT METHADONE PTS OF NOTE: PT LEFT AMA LAST ADMISSION BECAUSE HER ONLY BED OFFER WAS AT [facility] CM HAS AGAIN EXPLAINED THE BARRIERS TO PLACING HER IN MORE LOCAL SNFS SHE WILL NEED GUEST DOSING ARRANGED SOON A BED OFFER IS RECEIVED
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
--- NOTE | 2023-11-03 10:07 | HO.PM.IMPN ---
Subjective Subjective Date of Service: 11/03/23 Interval History: f/u osteomylitis/diskitis of the spine, bacteremia interval history: no new issues, still with pain in the back, looks pretty comfortable, needles, drugs and piples found in her belonging and removed by security Physical Exam Vital Signs: Vital Signs: Last Vital Signs Temp 96.9 F 11/03/23 07:09 Pulse 62 11/03/23 07:09 Resp 18 11/03/23 07:09 BP 172/96 H 11/03/23 07:09 Pulse Ox 99 11/03/23 07:09 O2 Del Method Room Air 11/03/23 07:09 BMI result Body Mass Index 23.3 Const: Other: General: AO X 3, no acute distress Resp: CTA bilateral CVS: S1,S2,RRR GI: +BS, NT, no distention MS: No back tenderness Skin: No rash Neuro: motor grossly intact Psych: appropriate affect Objective Data Active Medications Acetaminophen (Acetaminophen 325 Mg Tablet) 650 mg PO Q6H PRN PRN Reason: Pain, Mild (Pain Scale 1-3) Clonidine HCl (Clonidine Hcl 0.1 Mg Tablet) 0.1 mg PO TID PRN; Protocol PRN Reason: withdrawal Enoxaparin Sodium (Enoxaparin Sodium 40 Mg/0.4 Ml Syringe) 40 mg SUBCUT Q24H ON LICENSE OF [facility] Last Admin: 11/02/23 16:14 Dose: 40 mg Documented By: COLLETTE Vancomycin HCl 750 mg/ Sodium (Chloride) 265 mls @ 265 mls/hr IV Q12H ON LICENSE OF [facility] Last Infusion: 11/03/23 09:21 Dose: Infused Documented By: ULISES Piperacillin Sod/Tazobactam (Sod 4.5 gm/ Sodium Chloride) 100 mls @ 200 mls/hr IV Q6H ON LICENSE OF [facility] Last Infusion: 11/03/23 07:25 Dose: Infused Documented By: ULISES Melatonin (Melatonin 3 Mg Tablet) 6 mg PO BEDTIME PRN PRN Reason: Insomnia Nicotine (Nicotine 14 Mg Patch.Td24) 14 mg TRANSDERMA DAILY ON LICENSE OF [facility] Ondansetron HCl (Ondansetron Hcl 4 Mg/2 Ml Vial) 4 mg IVPUSH Q8H PRN PRN Reason: Nausea and Vomiting Oxycodone HCl (Oxycodone Hcl Immed Release 5 Mg Tablet) 5 mg PO Q6H PRN PRN Reason: Pain, Severe (Pain Scale 7-10) Last Admin: 11/03/23 08:08 Dose: 5 mg Documented By: ULISES Pharmacy Consult (Consult Rx Vancomycin Dosing) 1 each MISCELLANE DAILY PRN PRN Reason: Consult order Sodium Chloride (0.9 % Sodium Chloride Flush 3 Ml Syringe) [facility] Last Admin: 11/03/23 08:15 Dose: 3 ml Documented By: ULISES Labs 11/02/23 05:06 11/02/23 05:06 Microbiology Microbiology Results: Microbiology 11/02/23 06:41 Blood Culture - Preliminary Blood - Venous No growth after 24 hours. 11/02/23 06:40 Blood Culture - Preliminary Blood - Venous Prelim: GPC Gram Stain only Assessment and Plan (1) Cellulitis of extremity: Status: Acute (2) Discitis thoracic region: Status: Acute (3) MSSA bacteremia: Status: Acute Plan 43 yo F with OUD recent hospitalization for MSSA bacteremia + T6-T7 osteomyelitis/diskitis/paravertebral abscess and was to go to SNF for IV but refused on day of dicharge and signed out AMA and was given Zyvox, she is back with back pain, foot pain, CT of the spine show peristent finding of osteomylitis/diskitis/paravertebral 1. h/o MSSA bacteremia, persistent -T6-T7 osteomyelitis/diskitis/paravertebral abscess from last hospitalization. Was supposed to go to SNF for IV Kefzol but declined and was given Zosyn ins -Zosyn and Vanco, started on 11/02 -ID consult 2.OUD, Addiction med consult, received 30 mg of methadone 3.HCV - last viral load [id number] -outpatient therapy 4.tobacco abuse - NRT DVT prophylaxis Lovenox Need for inpatient: IV Abx for bacteremia and osteomylitis/diskiitis of spine Quality Stroke Does the patient have a stroke diagnosis?: No VTE Prior VTE?: No VTE Risk Level:: Medical - moderate - high VTE Device Contraindication: Treatment Not Indicated VTE Drug Contraindication: N/A - Med Ordered
--- NOTE | 2023-11-03 10:12 | P.PNIM_ITS ---
Subjective Subjective Date of Service: 11/03/23 Interval History: f/u osteomylitis/diskitis of the spine, bacteremia interval history: no new issues, still with pain in the back, looks pretty comfortable, needles, drugs and piples found in her belonging and removed by security Physical Exam 2 Vital Signs: Vital Signs: Last Vital Signs Temp 96.9 F 11/03/23 07:09 Pulse 62 11/03/23 07:09 Resp 18 11/03/23 07:09 BP 172/96 H 11/03/23 07:09 Pulse Ox 99 11/03/23 07:09 O2 Del Method Room Air 11/03/23 07:09 BMI result Body Mass Index 23.3 Const: Other: General: AO X 3, no acute distress Resp: CTA bilateral CVS: S1,S2,RRR GI: +BS, NT, no distention MS: No back tenderness Skin: No rash Neuro: motor grossly intact Psych: appropriate affect Objective Data Active Medications Acetaminophen (Acetaminophen 325 Mg Tablet) 650 mg PO Q6H PRN PRN Reason: Pain, Mild (Pain Scale 1-3) Clonidine HCl (Clonidine Hcl 0.1 Mg Tablet) 0.1 mg PO TID PRN; Protocol PRN Reason: withdrawal Enoxaparin Sodium (Enoxaparin Sodium 40 Mg/0.4 Ml Syringe) 40 mg SUBCUT Q24H [facility] Last Admin: 11/02/23 16:14 Dose: 40 mg Documented By: COLLETTE Vancomycin HCl 750 mg/ Sodium (Chloride) 265 mls @ 265 mls/hr IV Q12H [facility] Last Infusion: 11/03/23 09:21 Dose: Infused Documented By: ULISES Piperacillin Sod/Tazobactam (Sod 4.5 gm/ Sodium Chloride) 100 mls @ 200 mls/hr IV Q6H [facility] Last Infusion: 11/03/23 07:25 Dose: Infused Documented By: ULISES Melatonin (Melatonin 3 Mg Tablet) 6 mg PO BEDTIME PRN PRN Reason: Insomnia Nicotine (Nicotine 14 Mg Patch.Td24) 14 mg TRANSDERMA DAILY [facility] Ondansetron HCl (Ondansetron Hcl 4 Mg/2 Ml Vial) 4 mg IVPUSH Q8H PRN PRN Reason: Nausea and Vomiting Oxycodone HCl (Oxycodone Hcl Immed Release 5 Mg Tablet) 5 mg PO Q6H PRN PRN Reason: Pain, Severe (Pain Scale 7-10) Last Admin: 11/03/23 08:08 Dose: 5 mg Documented By: ULISES Pharmacy Consult (Consult Rx Vancomycin Dosing) 1 each MISCELLANE DAILY PRN PRN Reason: Consult order Sodium Chloride (0.9 % Sodium Chloride Flush 3 Ml Syringe) [facility] Last Admin: 11/03/23 08:15 Dose: 3 ml Documented By: ULISES Labs 11/02/23 05:06 11/02/23 05:06 Microbiology Microbiology Results: Microbiology 11/02/23 06:41 Blood Culture - Preliminary Blood - Venous No growth after 24 hours. 11/02/23 06:40 Blood Culture - Preliminary Blood - Venous Prelim: GPC Gram Stain only Assessment and Plan (1) Cellulitis of extremity: Status: Acute (2) Discitis thoracic region: Status: Acute (3) MSSA bacteremia: Status: Acute Plan 43 yo F with OUD recent hospitalization for MSSA bacteremia + T6-T7 osteomyelitis/diskitis/paravertebral abscess and was to go to SNF for IV but refused on day of dicharge and signed out AMA and was given Zyvox, she is back with back pain, foot pain, CT of the spine show peristent finding of osteomylitis/diskitis/paravertebral 1. h/o MSSA bacteremia, persistent -T6-T7 osteomyelitis/diskitis/paravertebral abscess from last hospitalization. Was supposed to go to SNF for IV Kefzol but declined and was given Zosyn ins -Zosyn and Vanco, started on 11/02 -ID consult 2.OUD, Addiction med consult, received 30 mg of methadone, give additional 30 today, add clonidine for withdrawal symptoms, currently without withdrawal symptoms. Caution with visitors as they may be bring her substance 3.HCV - last viral load [id number] -outpatient therapy 4.tobacco abuse - NRT DVT prophylaxis Lovenox Need for inpatient: IV Abx for bacteremia and osteomylitis/diskiitis of spine Quality Stroke Does the patient have a stroke diagnosis?: No VTE Prior VTE?: No VTE Risk Level:: Medical - moderate - high VTE Device Contraindication: Treatment Not Indicated VTE Drug Contraindication: N/A - Med Ordered
[2023-11-03 10:34] LABS: Creatinine Clr Calc Pharmacy 66.5; Estimated Glomerular Filt Rate > 60
[2023-11-03] MEDS: Nicotine 14 MG PATCH.TD24 TRANSDERMA (11:49)
[2023-11-03] MEDS: methADONE HCl 20 MG/2 ML ORAL.CONC 15 MG PO (11:50)
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
[2023-11-03 14:21] VITALS: BP 162/90; PULSE 72; RESP 16; TEMP 36.4; O2SAT 97
[2023-11-03 15:30] VITALS: BP 152/90; PULSE 77; RESP 20; TEMP 36.3; O2SAT 97
[2023-11-03] MEDS: Enoxaparin Sodium 40 MG/0.4 ML SYRINGE SUBCUT (15:34)
[2023-11-03] MEDS: amLODIPine Besylate 2.5 MG TABLET PO (15:34)
[2023-11-03 16:33] VITALS: PULSE 85; RESP 20; O2SAT 96
[2023-11-03] MEDS: Morphine Sulfate 2 MG/ML CARTRIDGE IVPUSH ×2 (18:01→22:02)
[2023-11-03 18:55] LABS: Vancomycin Random 7.1 mcg/mL (15-20)
--- NOTE | 2023-11-03 19:01 | HE.PHANOTE ---
RE VANCO DOSING SCR STABLE AT 0.88 TODAY. TROUGH LOW AT 7.1. INCREASING DOSE TO 750 Q8H. PER INSIGHT THIS SHOULD LEAD TO TROUGH 17.7 AND AUC 570. WILL RECHECK LEVEL 11/04 @1800.
[2023-11-03 20:00] VITALS: BP 154/90; PULSE 72; RESP 18; TEMP 36.7; O2SAT 99
[2023-11-03] MEDS: Melatonin 3 MG TABLET 6 MG PO (20:26)
[2023-11-03] MEDS: cloNIDine HCL 0.1 MG TABLET PO (20:26)
[2023-11-03] MEDS: Acetaminophen 325 MG TABLET 650 MG PO (20:33)
--- NOTE | 2023-11-03 21:15 | P.CNID_ITS ---
History of Present Illness Data of Consult Service Date: 11/03/23 Requesting physician: Sadiq Hauser Primary Care Provider: Unknown Physician HPI Reason for consult: bacteremia,foot and back pain, prior MSSA She presents to hospital with right foot pain and thoracic 10/10 pain. She does IVDU and MSSA bacteremia 09/19-10/04 hospitalization for T6/7 OM. She refused to go to Rehab in [place] for IV therapy Kefzol for MSSA IV antibiotics. She took linezolid for four weeks. She has Hepatitis C viral load as well. Review of Systems 2 Review of Systems: Yes all other systems are reviewed and are negative PMFSH Past Medical History Medical History (Updated 11/03/23 @ 21:19 by Miranda Carreno MD) Bacteremia Polysubstance use disorder Opioid use disorder Hepatitis C antibody positive in blood Cocaine abuse Heroin abuse PTSD (post-traumatic stress disorder) Depression Anxiety Opiate abuse, continuous Family History Family history: reviewed and not pertinent Social History Social History Household Members: Other Housing: Homeless Do you presently have visiting nurse or other home services: No Alcohol intake: never Comment: pt refusing camera and bed alarms Patient Tobacco Use Status: Current everyday Tobacco user Tobacco use type: Cigarette Cigarette Packs Per Day: 1 Cigarettes Per Day: 20.0 Years Smoked: 30 Smoked in Last 30 Days: Yes Patient Interested in Nicotine Replacement: Yes Patient Given Instructions on How to Stop Smoking: No Second Hand Smoke Exposure: Yes Use of substances other than those prescribed or required for medical reasons: No Substance Use Type: Crack/Cocaine, Heroin and Marijuana Substance Use Frequency: Daily Last Used Substance: Just Prior to Admission Currently Displaying Signs/Symptoms of Drug Intoxication Withdrawal: No Any prior treatment program specific to substance use: Yes Have you been hit, kicked, punched, or otherwise hurt by someone within the past year? If so, by whom?: No Do you feel safe in your current relationship?: Yes Is there a partner from a previous relationship who is making you feel unsafe now?: No Are you made to feel afraid or neglected: No Advance Directives: No Advance Directives Information Provided: Yes Do you have thoughts of harming others: None Do you have a plan to hurt others: No Plan Recently lost weight without trying: No Nutrition Risks: No Nutritional Risk Patient : No : No Poor oral hygiene: No service: No Meds Allergies Allergy/AdvReac Type Severity Reaction Status Date / Time No Known Allergies Allergy Verified 11/02/23 02:42 Active Medications: Current Medications Acetaminophen (Acetaminophen 325 Mg Tablet) 650 mg PO Q6H PRN PRN Reason: Pain, Mild (Pain Scale 1-3) Last Admin: 11/03/23 20:33 Dose: 650 mg Amlodipine Besylate (Amlodipine Besylate 2.5 Mg Tablet) 2.5 mg PO DAILY [facility]; Protocol Last Admin: 11/03/23 15:34 Dose: 2.5 mg Clonidine HCl (Clonidine Hcl 0.1 Mg Tablet) 0.1 mg PO TID PRN; Protocol PRN Reason: withdrawal Last Admin: 11/03/23 20:26 Dose: 0.1 mg Enoxaparin Sodium (Enoxaparin Sodium 40 Mg/0.4 Ml Syringe) 40 mg SUBCUT Q24H [facility] Last Admin: 11/03/23 15:34 Dose: 40 mg Piperacillin Sod/Tazobactam (Sod 4.5 gm/ Sodium Chloride) 100 mls @ 200 mls/hr IV Q6H [facility] Last Infusion: 11/03/23 18:35 Dose: Infused Vancomycin HCl 750 mg/ Sodium (Chloride) 265 mls @ 265 mls/hr IV Q8H [facility] Last Admin: 11/03/23 20:26 Dose: 265 mls/hr Melatonin (Melatonin 3 Mg Tablet) 6 mg PO BEDTIME PRN PRN Reason: Insomnia Last Admin: 11/03/23 20:26 Dose: 6 mg Methadone HCl (Methadone Hcl 20 Mg/2 Ml Oral.Conc) 50 mg PO DAILY [facility] Morphine Sulfate (Morphine Sulfate 2 Mg/Ml Cartridge) 2 mg IVPUSH Q6H PRN; Protocol PRN Reason: Pain, Severe (Pain Scale 7-10) Last Admin: 11/03/23 18:01 Dose: 2 mg Nicotine (Nicotine 14 Mg Patch.Td24) 14 mg TRANSDERMA DAILY [facility] Last Admin: 11/03/23 11:49 Dose: 14 mg Ondansetron HCl (Ondansetron Hcl 4 Mg/2 Ml Vial) 4 mg IVPUSH Q8H PRN PRN Reason: Nausea and Vomiting Oxycodone HCl (Oxycodone Hcl Immed Release 5 Mg Tablet) 5 mg PO Q6H PRN PRN Reason: Pain, Severe (Pain Scale 7-10) Last Admin: 11/03/23 20:33 Dose: 5 mg Pharmacy Consult (Consult Rx Vancomycin Dosing) 1 each MISCELLANE DAILY PRN PRN Reason: Consult order Sodium Chloride (0.9 % Sodium Chloride Flush 3 Ml Syringe) 3 ml IVFLUSH QSHIFT [facility] Last Admin: 11/03/23 20:26 Dose: 3 ml Physical Exam 2 Vital Signs: Vital Signs: Last Vital Signs Temp 98.0 F 11/03/23 20:00 Pulse 72 11/03/23 20:00 Resp 18 11/03/23 20:00 BP 154/90 H 11/03/23 20:00 Pulse Ox 99 11/03/23 20:00 O2 Del Method Room Air 11/03/23 20:00 O2 Flow Rate 2 11/03/23 16:33 BMI result Body Mass Index 23.3 Const: General: cooperative HEENT: Head: Yes normal to inspection Face and sinus: Yes normal facial exam Mouth: Normal oral and palatal mucosa present Teeth and gingiva: d entition normal Eyes: General: appearance normal, both eyes and all related structures P upils: Equal, round and reactive pupils present Resp: Effort & Inspection: normal respiratory effort Cardio: Rate: regular rate Rhythm: regular rhythm GI: Palpation (GI): Soft to palpation and nontender : General: Yes no CVA tenderness Back/Spine/Pelvis: Back: no CVA tenderness Skin: General skin exam: no rashes or lesions noted Neuro: General: moves all extremities Cranial nerves: Yes Equal, round and reactive pupils present Extrem: Other: pulses intact no redness right foot some back pain mid thoracic,extremity works well Psych: Appearance: grossly normal Results Labs 11/02/23 05:06 11/03/23 10:14 Labs: BMP 11/03/23 10:14 Creatinine 0.88 Microbiology Microbiology Results: Microbiology 11/02/23 Unknown Urine clean catch - Urine wright top Urine Culture - Preliminary Culture in progress. 11/02/23 06:41 Blood - Venous Blood Culture - Preliminary No growth after 24 hours. 11/02/23 06:40 Blood - Venous Blood Culture - Preliminary Prelim: GPC Gram Stain only Assessment and Plan (1) Cellulitis of extremity: Status: Acute (2) Discitis thoracic region: Status: Acute (3) Bacteremia: Status: Acute Bacteremia,possible MSSA. Also possible contaminant ?staph epi. Gram positive cocci pending Also destruction on thoracic spine likely may represent natural history of damaged vertebra especially with not taking IV medication. Plan Vancomycin for now. Can hold piperacillin/tazobactam. Await final blood cultures. Check echo again.
[2023-11-04] MEDS: Morphine Sulfate 2 MG/ML CARTRIDGE IVPUSH ×3 (01:24→08:01)
[2023-11-04 03:10] VITALS: BP 136/95; PULSE 79; RESP 18; TEMP 36.2; O2SAT 98
[2023-11-04] MEDS: oxyCODONE HCl Immed Release 5 MG TABLET PO (03:10)
[2023-11-04] MEDS: vancomycin HCL 750 MG in 0.9 % Sodium Chloride 250 ML 265 MG IV ×2 (03:11→13:07)
[2023-11-04] MEDS: cloNIDine HCL 0.1 MG TABLET PO (04:13)
--- NOTE | 2023-11-04 07:00 | CA_ITS ---
Transthoracic Echocardiogram Patient (Last, First, Middle): Norma Chiang, Gender: Female Date of : 1980 Age: 43 Procedure Date: 11/04/2023 Procedure Type: Transthoracic Echocardiogram Location: S3E Height: 157.48 cm Weight: 57.61 kg BSA: 1.58 m2 Heart Rate: 75 bpm BP: 147 / 94 mmHg Decommissioning Well Site Manager: GREG Referring MD: Sadiq Hauser MD Symptoms: bacteremia Study Quality: Adequate/Limited ECG Rhythm: Sinus Conclusions: - Limited study because the patient was uncooperative. - Normal left ventricular size and systolic function. The visually estimated ejection fraction is between 55-60%. - Normal right ventricular cavity size and systolic function. - Normal 2-D assessment of the valves. No obvious vegetation. Findings Left Ventricle Normal left ventricular size and systolic function. The visually estimated ejection fraction is between 55-60%. There is no evidence of regional wall motion abnormalities. Diastolic function is indeterminate on the basis of available data. Right Ventricle Normal right ventricular cavity size and systolic function. Aortic Valve Normal aortic valve structure and function. There is no aortic valve stenosis. There is no aortic valve regurgitation. Mitral Valve Normal mitral valve structure and function. Pulmonic Valve Normal pulmonic valve structure and function. There is trace pulmonic valve regurgitation. Tricuspid Valve Normal tricuspid valve structure and function. Tricuspid regurgitation envelope is inadequate for calculation of right ventricular systolic pressure. Venous The inferior vena cava is normal in size and collapses greater than 50% with inspiration. Pericardium/Pleural There is no evidence of pericardial effusion. Measurements 2D Linear Measurements LVOT Diam: 1.70 3.0+(-)1.3 cm LVOT LVOT Pk Vernon: 1.14 LVOT Mn Vernon: 0.83 LVOT VTI: 0.19 LVOT Pk Grad: 5.00 LVOT Mn Grad: 3.00 LVOT Diam: 1.70 LVOT Area: 2.27 Updated in Other Vendor System with Status of Final Parmjit Rutledge MD electronically signed on 11/04/2023 2:29:10 PM with status of Final
[2023-11-04 07:27] VITALS: BP 147/94; PULSE 76; RESP 16; TEMP 36.3; O2SAT 96
[2023-11-04] MEDS: amLODIPine Besylate 2.5 MG TABLET PO (07:54)
[2023-11-04] MEDS: methADONE HCl 20 MG/2 ML ORAL.CONC 50 MG PO (07:54)
[2023-11-04] MEDS: 0.9 % Sodium Chloride Flush 3 ML SYRINGE IVFLUSH (07:56)
--- NOTE | 2023-11-04 11:58 | P.PNADD_ITS ---
Subjective Subjective Date of Service: 11/04/23 Reason For Visit: Osteomyelitis of spine Interim History: Patient is a 43 year old well know to the recovery team via previous admission. Currently medically admitted with osteo and bacteremia. Previous admission 09/2023 patient left prior to IV abx treatment completed. She was restarted on methadone upon arrival and over the wkend dose increased by this instructional writer. Previous admission she was comfortable at 70mg methadone. Patient seen in room 367. Awake, alert pleasant and engaged in interview. Would like to continue on methadone and remain in treatment for infection Review of Systems Constitutional: Reports as per HPI and Reports no additional constitutional complaints Mental Status Exam Mental Status Exam Level of Consciousness: Awake, Appropriate and Alert Diagnostics Vital Signs (24Hr): Vital Signs - 24 hr 11/03/23 14:21 11/03/23 15:30 11/03/23 16:33 Temperature 97.6 F 97.4 F Pulse Rate 72 77 85 Respiratory Rate 16 20 20 Blood Pressure 162/90 H 152/90 H Pulse Oximetry 97 97 96 Oxygen Delivery Method Room Air Room Air Nasal Cannula Oxygen Flow Rate 2 11/03/23 20:00 11/04/23 03:10 11/04/23 07:27 Temperature 98.0 F 97.2 F 97.3 F Pulse Rate 72 79 76 Respiratory Rate 18 18 16 Blood Pressure 154/90 H 136/95 H 147/94 H Pulse Oximetry 99 98 96 Oxygen Delivery Method Room Air Room Air Room Air Oxygen Flow Rate BMI result Body Mass Index 23.3 Labs 11/02/23 05:06 11/04/23 13:10 Labs: Laboratory Results - last 48 hr 11/03/23 11/03/23 10:14 18:38 Creatinine 0.88 Estim Creat Clear Calc 66.5 Estimated GFR > 60 Random Vancomycin 7.1 L Imaging Radiology Impressions: ITS Impressions Ribs X-Ray 11/02/23 05:52 IMPRESSION: Old left rib fractures. No acute fracture. Venous Duplex 11/02/23 07:40 IMPRESSION: No DVT demonstrated in the right lower extremity. Thoracic Spine CT 11/02/23 11:40 IMPRESSION: There is progressive destruction of the T7 vertebral body with impaction of the upper and lower endplates resulting in 90% vertebral height loss anteriorly. Consequently there is focal kyphotic angulation centered at T7. There are also erosive osseous changes involving the lower T6 and upper T8 endplates. No overt retropulsion and no evidence of bony canal compromise. There is a peripherally enhancing paraspinal fluid collection at the site of the spinal infection that measures approximately 1 cm in maximal transaxial dimension. Medications Medications Current Medications Acetaminophen (Acetaminophen 325 Mg Tablet) 650 mg PO Q6H PRN PRN Reason: Pain, Mild (Pain Scale 1-3) Last Admin: 11/03/23 20:33 Dose: 650 mg Amlodipine Besylate (Amlodipine Besylate 2.5 Mg Tablet) 2.5 mg PO DAILY [facility]; Protocol Last Admin: 11/04/23 07:54 Dose: 2.5 mg Clonidine HCl (Clonidine Hcl 0.1 Mg Tablet) 0.1 mg PO TID PRN; Protocol PRN Reason: withdrawal Last Admin: 11/04/23 04:13 Dose: 0.1 mg Enoxaparin Sodium (Enoxaparin Sodium 40 Mg/0.4 Ml Syringe) 40 mg SUBCUT Q24H [facility] Last Admin: 11/03/23 15:34 Dose: 40 mg Hydromorphone HCl (Hydromorphone Hcl 2 Mg/Ml Vial) 1 mg IVPUSH Q6H PRN; Protocol PRN Reason: Pain, Severe (Pain Scale 7-10) Vancomycin HCl 750 mg/ Sodium (Chloride) 265 mls @ 265 mls/hr IV Q8H [facility] Last Infusion: 11/04/23 04:11 Dose: Infused Melatonin (Melatonin 3 Mg Tablet) 6 mg PO BEDTIME PRN PRN Reason: Insomnia Last Admin: 11/03/23 20:26 Dose: 6 mg Methadone HCl (Methadone Hcl 20 Mg/2 Ml Oral.Conc) 50 mg PO DAILY [facility] Last Admin: 11/04/23 07:54 Dose: 50 mg Nicotine (Nicotine 14 Mg Patch.Td24) 14 mg TRANSDERMA DAILY [facility] Last Admin: 11/04/23 10:17 Dose: Not Given Ondansetron HCl (Ondansetron Hcl 4 Mg/2 Ml Vial) 4 mg IVPUSH Q8H PRN PRN Reason: Nausea and Vomiting Oxycodone HCl (Oxycodone Hcl Immed Release 5 Mg Tablet) 5 mg PO Q6H PRN PRN Reason: Pain, Severe (Pain Scale 7-10) Last Admin: 11/04/23 03:10 Dose: 5 mg Pharmacy Consult (Consult Rx Vancomycin Dosing) 1 each MISCELLANE DAILY PRN PRN Reason: Consult order Sodium Chloride (0.9 % Sodium Chloride Flush 3 Ml Syringe) 3 ml IVFLUSH QSHIFT [facility] Last Admin: 11/04/23 07:56 Dose: 3 ml Allergies Allergies Allergy/AdvReac Type Severity Reaction Status Date / Time No Known Allergies Allergy Verified 11/02/23 02:42 Assessment & Plan Assessment & Plan (1) Opioid use disorder: Status: Acute Code(s): F11.90 - Opioid use, unspecified, uncomplicated Assessment and Plan: * continue methadone titration Total time managing care of this patient today __20__ minutes.
[2023-11-04] MEDS: HYDROmorphone HCl 2 MG/ML VIAL 1 MG IVPUSH (13:18)
--- NOTE | 2023-11-04 13:29 | MHC.CM.PN ---
EMR REVIEWED AND PER MD ROUNDS, PT IS NOT MEDICALLY CLEARED FOR DC (AWAITING FINAL CULTURES, IV ABT) WILL NEED A STR FOR LT IV ABT. ONLY [facility] OFFER[facility] A [facility]. CM WILL CONTINUE TO FOLLOW FOR ANY CHANGE IN DC NEEDS/PLAN
--- NOTE | 2023-11-04 13:44 | PC.NURSE ---
At ~1330 pts boyfriend came to visit her, security was notified and asked boyfriend if he had any drugs or paraphernalia on him which he admitted to having needles and might have some drugs Boyfriend refused a search by security and was asked to leave hospital to which he agreed and exited the floor. Pt became extremely upset and stated she was going to leave AMA. Dr. Gracia, [employer] Charleen and security at bedside. RN Mike from ICU came up to removed pts triple lumen to her right groin, pressure dressing applied. Pt signed AMA form which was witnessed by 2 RNs. Escorted off floor with security
[2023-11-04 14:09] LABS: Anion Gap 11 (12-20); Blood Urea Nitrogen 14 mg/dL (9-16); Calcium 9.9 mg/dL (8.4-10.2); Carbon Dioxide 29 mmol/L (22-29); Chloride 105 mmol/L (96-108); Creatinine Clr Calc Pharmacy 69.7; Estimated Glomerular Filt Rate > 60; Glucose Random 80 mg/dL (60-115); Potassium 4.1 mmol/L (3.3-5.1); Sodium 141 mmol/L (135-145)
--- NOTE | 2023-11-04 18:08 | PM.DS ---
DS: Providers Provider Date of Service: 11/04/23 Date of admission: 11/02/23 15:28 Primary care physician: Unknown Physician Consults: 11/02/23 15:27 Consult to Infectious Diseases Routine Consulting Provider: [facility] Infectious Disease Reason for consultation: diskitis Has provider been notified: No 11/02/23 16:02 Addiction Medicine Routine Consulting Provider: Addiction Covering Reason for consultation: Polysubstance use desorder Has provider been notified: No DS: Diagnosis Discharge Diagnosis (1) Cellulitis of extremity: Status: Acute (2) Discitis thoracic region: Status: Acute (3) Bacteremia: Status: Acute DS: Summary Hospital Course Hospital Course: Admitting HPI 42-year-old female with pertinent history of IV drug use disorder who was admitted to the hospital from 09/19/23 to and at that time was treated for cellulitis of the foot, MSSA bacteremia and diskitis and she was to be discharged to a SNF with long term antibiotics but on the day of discharged she refused to go. The PICC line was removed and she was discharged on Suboptimal Abx with Zosyn, and she claimed that she took it. Although there is no claim history at a pharmacy. She is here complaining of right foot pain and back pain that has been ongoing, there is no redness in the foot, back pain has also been an ongoing issues, has no weakness or numbness in the legs, no urinary or stool incontinence. WBC is normal, CRP is 0.8, DVT study is negative, CT of spine is reported as follow There is progressive destruction of the T7 vertebral body with impaction of the upper and lower endplates resulting in 90% vertebral height loss anteriorly. Consequently there is focal kyphotic angulation centered at T7. There are also erosive osseous changes involving the lower T6 and upper T8 endplates. No overt retropulsion and no evidence of bony canal compromise. There is a peripherally enhancing paraspinal fluid collection at the site of the spinal infection that measures approximately 1 cm in maximal transaxial dimension. Blood cultures sent are sent. Urine tox screen is positive for opioid, fentanyl, cocaine and canabis Given Zosyn and Vanco in ED Hospital course: The patient was admitted for the treatment of previously diagnosed MSSA bacteremia and osteomyelitis/diskitis of the spine. During a prior hospital stay, she chose to leave against medical advice (AMA) on the day of discharge and opted out of going to a long-term facility (SNF) for long-term antibiotic treatment via a PICC line. Instead, she was prescribed oral Zyvox as a less effective alternative. She returned with presenting symptoms of back and foot pain, similar to last presentation. A back CT revealed ongoing signs consistent with osteomyelitis/diskitis, with no neurological deficits were observed. Addiction med was helping managing her opioid use desorder Once again, she was started on IV antibiotics with the intention of eventual discharge using IV antibiotics, which she agreed to. Blood cultures once more showed positive results for staph species. Fortunately, an echocardiogram indicated no signs of endocarditis. During a visit by her boyfriend, he confessed to having needles and drugs in his possession and was asked to leave. This upset the patient, who demanded the removal of her central line so she could go to [facility]. Despite efforts from myself and the nursing staff, we were unable to convince her otherwise. She was strongly advised to seek immediate medical assistance due to the seriousness of her condition, which could pose a threat to her health and even result in . Despite understanding the risks, she chose to leave against medical advice. At the time of departure, she remained alert, oriented to self, place, and time and was aware of her situation. She was further advise to continue taking Zyvox, with the understanding that it is not first line therapy Final diagnosis Opioid use desorder Sepsis due staph bacteremia Osteomylitis/Diskitis HTN Time Attestation Discharge coordination time: Greater than 30 minutes Quality: Safe Use of Opioids Does Pt have an Active Cancer Diagnosis on the Problem List?: No Quality: Stroke Does the patient have a stroke diagnosis?: No Physical Exam Vital Signs: Vital Signs: Last Vital Signs Temp 97.3 F 11/04/23 07:27 Pulse 76 11/04/23 07:27 Resp 16 11/04/23 07:27 BP 147/94 H 11/04/23 07:27 Pulse Ox 96 11/04/23 07:27 O2 Del Method Room Air 11/04/23 07:27 O2 Flow Rate 2 11/03/23 16:33 BMI result Body Mass Index 23.3 DS: Data Data Completed and Pending Completed studies during hospitalization [Text1]: Procedures Drainage of Spinal Canal, Percutaneous Approach (09/19/23) Fluoroscopy of Spinal Cord (09/19/23) Insertion of Infusion Device into Superior Vena Cava, Percutaneous Approach (09/19/23) Ultrasonography of Superior Vena Cava, Guidance (09/19/23) Labs on day of discharge: Laboratory Results - last 24 hr 11/03/23 11/04/23 18:38 13:10 Sodium 141 Potassium 4.1 Chloride 105 Carbon Dioxide 29 Anion Gap 11 L BUN 14 Creatinine 0.84 Estim Creat Clear Calc 69.7 Estimated GFR > 60 Random Glucose 80 Calcium 9.9 D Random Vancomycin 7.1 L Preliminary micro results at discharge 11/02/23 Unknown Urine Culture - Preliminary Urine clean catch - Urine wright top Gram negative beau 11/02/23 06:40 Blood Culture - Preliminary Blood - Venous Staphylococcus species 11/02/23 06:41 Blood Culture - Preliminary Blood - Venous No growth after 48 hours. Discharge Plan Discharge Anticipated Discharge Date/Time: 11/04/23 18:06 Patient Disposition: Left Against Medical Advice Discharge Diagnosis: osteomyelitis Referrals: Physician,Unknown J [Primary Care Provider] - 1 Week Discharge Medications: No Action linezolid 600 mg Tablet 600 mg PO Q12H Qty: 55 0RF Discharge Orders: Discharge Order (Routine); Ordered 11/04/23 Ordered By: Sadiq Hauser Diet: Advance to usual diet Activity on Discharge: As tolerated Care Plan Goals: completion of antibiotics for bacteremia and diskiitis Health Concerns: chronic opioid use desorder MSSA bacteremia Diskitis Plan of Treatment: Patient left AMA stating that she was going to [facility], she was advise to continue use of Zyvox previously prescribed for 6 week and Assessment: as above Discharge Date/Time: 11/04/23 13:50
== END 2023-11-04 13:50 | disposition left against medical advice (07) | DRG 540 ==
LOC: HO.ED 13:30 → HO.EDOVER 15:34 → HO.S3 19:06
PROVIDERS: Emergency Medicine; Admitting Provider Internal Medicine; Emergency Provider Emergency Medicine Emergency Medical Services; Visit Provider Internal Medicine
DX: M46.24 Osteomyelitis of vertebra, thoracic region (principal); F11.20 Opioid dependence, uncomplicated; L03.115 Cellulitis of right lower limb; R78.81 Bacteremia; M46.44 Discitis, unspecified, thoracic region; F17.210 Nicotine dependence, cigarettes, uncomplicated; B19.20 Unspecified viral hepatitis C without hepatic coma; Z71.6 Tobacco abuse counseling; B95.61 Methicillin susceptible Staphylococcus aureus infection as the cause of diseases classified elsewhere; Z91.148 Patient's other noncompliance with medication regimen for other reason; Z91.199 Patient's noncompliance with other medical treatment and regimen due to unspecified reason; Z79.899 Other long term (current) drug therapy
CPT/HCPCS: 36415; 71101; 72129; 80048; 80053; 80202; 80307; 81001; 82565; 83605; 84484; 85025; 85652; 86140; 87040; 87086; 87088; 87147; 87186; 87205; 93005; 93308; 93971; 99285; J1170; J1650; J1885; J2270; J2543; J3370; J3371; Q9967

== ENCOUNTER → 2023-11-02 04:54 | Outpatient (BNV) | payer SELFPAY | PROVIDERS: Admitting Provider Internal Medicine; Emergency Provider Emergency Medicine Emergency Medical Services; Visit Provider Internal Medicine | DX: R07.9 Chest pain, unspecified (principal); R94.31 Abnormal electrocardiogram [ECG] [EKG] | CPT/HCPCS: 93010 ==

== ENCOUNTER 2023-11-02 15:28 | Outpatient (BNV) | payer SELFPAY | END 2023-11-04 07:00 | PROVIDERS: Admitting Provider Internal Medicine; Emergency Provider Emergency Medicine Emergency Medical Services; Visit Provider Internal Medicine Cardiovascular Disease | DX: R78.81 Bacteremia (principal) | CPT/HCPCS: 93308 ==

== ENCOUNTER → 2023-11-02 15:28 | Outpatient (BNV) | payer SELFPAY | PROVIDERS: Admitting Provider Internal Medicine; Emergency Provider Emergency Medicine Emergency Medical Services; Visit Provider Internal Medicine | DX: L03.119 Cellulitis of unspecified part of limb (principal); M46.44 Discitis, unspecified, thoracic region; R78.81 Bacteremia | CPT/HCPCS: 99222 ==

== ENCOUNTER → 2023-11-02 15:28 | Outpatient (BNV) | payer SELFPAY | PROVIDERS: Admitting Provider Internal Medicine; Emergency Provider Emergency Medicine Emergency Medical Services; Visit Provider Nurse Practitioner Psychiatric/Mental Health | DX: F11.90 Opioid use, unspecified, uncomplicated (principal) | CPT/HCPCS: 99231 ==

== ENCOUNTER → 2023-11-02 15:28 | Outpatient (BNV) | payer SELFPAY | PROVIDERS: Admitting Provider Internal Medicine; Emergency Provider Emergency Medicine Emergency Medical Services; Visit Provider Internal Medicine | DX: L03.115 Cellulitis of right lower limb (principal); M46.44 Discitis, unspecified, thoracic region; R78.81 Bacteremia; Z53.29 Procedure and treatment not carried out because of patient's decision for other reasons | CPT/HCPCS: 99223; 99233; 99239 ==

== ENCOUNTER 2023-11-11 10:18 | Emergency (ER) | payer SELFPAY ==
[2023-11-11 10:28] VITALS: BP 155/84; PULSE 102; O2SAT 97
[2023-11-11 10:41] VITALS: PULSE 108; TEMP 37.3; O2SAT 100; BMI 23.8
--- NOTE | 2023-11-11 10:44 | PC.NURSE ---
unable to obtain BP on patient at this time. will not hold still in triage.
[2023-11-11] MEDS: Ondansetron ODT 4 MG TAB.RAPDIS TRANSLINGU (10:48)
[2023-11-11] MEDS: Acetaminophen 325 MG TABLET 650 MG PO (10:48)
== END 2023-11-11 19:51 | disposition left against medical advice (07) ==
LOC: HO.ED 19:48
PROVIDERS: Emergency Provider Emergency Medicine
DX: M79.10 Myalgia, unspecified site (principal); F11.23 Opioid dependence with withdrawal
CPT/HCPCS: 99282; 99283

== ENCOUNTER 2023-11-23 01:20 | Emergency (ER) | payer MEDICAID, SELFPAY ==
--- NOTE | ~2023-11-23 | CT_ITS ---
EXAMINATION: CT THORACIC SPINE CLINICAL INFORMATION: Question epidural abscess. COMPARISON: None available. TECHNIQUE: Multidetector helical imaging acquired in the axial plane following intravenous administration of 85 mL of Omnipaque 350. This CT examination was performed using dose optimization techniques as appropriate, variously including the following: *Automated exposure control *Adjustment of mA and/or kV according to patient size (this includes techniques or standardized protocols for targeted exams where dose is matched to indication/reason for exam; i.e. extremities or head) *Use of iterative reconstruction technique DLP: 431 mGy-cm FINDINGS: There has been further near-complete destruction and osseous fragmentation of the T7 vertebral body with a worsened midthoracic kyphosis centered at this level. Endplate erosive changes noted inferiorly at the T6 level with progression from the prior exam. There are mild superior endplate erosive changes at the T8 level as well. Worsened ventral epidural soft tissue abnormality presumed to represent phlegmon significantly distorts the thecal sac from the T6 through the T8 levels. Degree of cord compression cannot be adequately assessed on the basis of this CT examination. There is extensive paraspinal soft tissue disease which spans from the T5 through the T9 levels. There is a new 3.4 x 2 x 2.5 cm collection in the right paraspinal soft tissues, potentially extending into the right lung with a thick rind of soft tissue abnormality. Small focus of air noted within the collection which is highly suspicious for an abscess. Soft tissue inflammatory changes extend into the posterior mediastinum abutting the azygos vein and descending thoracic aorta. CT/CT thoracic spine w IV con IMPRESSION: Worsened discitis/osteomyelitis from the T6 through the T8 levels with further fragmentation and dissolution of the T7 vertebral body resulting in vertebral plana. Worsened kyphotic angulation centered at this level. Progressed ventral epidural soft tissue disease spanning from the T6 through the T8 levels resulting in fairly significant thecal sac compression. Increased lateral paraspinal soft tissue inflammatory changes with involvement of the posterior mediastinum. Additional new suspected abscess in the right anterolateral paraspinal soft tissues which may extend into the right lung, measuring 3.4 x 2.5 cm in size. Tuberculous spondylitis would be a primary differential diagnostic consideration as opposed to a bacterial pyogenic infection; clinically correlate. Imaging findings reported to Dr. Ledesma at 10:40 AM on 11/23/2023.
[2023-11-23 01:21] VITALS: BP 107/67; PULSE 110; RESP 18; TEMP 36.8; O2SAT 98; BMI 23.4
[2023-11-23 06:08] VITALS: BP 116/77; PULSE 93; RESP 18; TEMP 37.4; O2SAT 97
--- NOTE | 2023-11-23 06:43 | ED_ITS ---
HPI - General Adult General Chief complaint: Extremity Injury, Lower Stated complaint: Coughing up blood Time Seen by Provider: 11/23/23 06:37 Source: patient Mode of arrival: ambulatory Limitations: no limitations History of Present Illness HPI narrative: 43 year old female with pmhx significant for hep C, anxiety, depression, PTSD, opioid use disorder, and IVDU presents today with worsening back pain x2 weeks s/p recent hospital admission for bacteremia and epidural abscess. She was admitted to the hospital from 09/19/23- 10/02/23 and treated for cellulitis of the foot, MSSA, bacteremia, and diskitis, discharged to SNF however refused to go. Was then admitted from 11/02/23-11/04/23 for bacteremia however left AMA. She presents today with worsening back pain, generalized weakness, and weakness/ pain into both lower extremities. Pain is worse with ambulation. Admits she feels warm however no documented temperature. Has been able to ambulate without difficulty. Admits to IV cocaine use, last used this morning prior to arrival in ED. She denies palpitations, chest pain, shortness of breath, rashes, bowel or bladder incontinence or retention, saddle anesthesia, tingling down lower extremities, calf pain/tenderness. Denies SI/HI. Patient is currently homeless and lives in a tent with her boyfriend. Related Data Previous Rx's Medication Instructions Recorded linezolid 600 mg tablet 600 mg PO Q12H #55 tabs 10/02/23 Allergies Allergy/AdvReac Type Severity Reaction Status Date / Time No Known Allergies Allergy Verified 11/23/23 01:24 Review of Systems 2 Review of Systems: Constitutional: No fever, chills, fatigue, night sweats, weight changes ENT/Mouth: No ear pain, hearing loss, nasal congestion, sinus pain, rhinorrhea, sore throat Eyes: No eye pain, swelling, redness, vision changes, discharge Cardio: No chest pain, palpitations, ALEXIS, orthopnea, peripheral edema Pulm: No SOB, cough, sputum, wheezing, dyspnea, hemoptysis GI: No nausea, vomiting, hematemesis, abdominal pain, diarrhea, constipation, hematochezia, melena : No irregular bleeding, dysuria, frequency, urgency, hesitancy, hematuria, flank pain, urinary flow changes, urinary incontinence or retention MSK: No neck pain, joint pain, myalgias, +back pain Skin: No lesions, rashes Neuro: No weakness, numbness, paresthesias, LOC, dizziness, headache All other systems reviewed and are negative. [facility] Past Medical History Attestation statement: The following information was validated with the patient. Source: old records reviewed and nursing notes reviewed Medical History Opioid use disorder Bacteremia Polysubstance use disorder Hepatitis C antibody positive in blood Cocaine abuse Heroin abuse PTSD (post-traumatic stress disorder) Depression Anxiety Opiate abuse, continuous Social History Social History Household Members: Other Housing: Homeless Do you presently have visiting nurse or other home services: No Alcohol intake: never Comment: pt refusing camera and bed alarms Patient Tobacco Use Status: Current everyday Tobacco user Tobacco use type: Cigarette Cigarette Packs Per Day: 1 Cigarettes Per Day: 20.0 Years Smoked: 30 Second Hand Smoke Exposure: Yes Use of substances other than those prescribed or required for medical reasons: Yes Substance Use Type: Heroin Substance Use Frequency: Daily Last Used Substance: Days (ago) Any prior treatment program specific to substance use: Yes Advance Directives: Yes Advance Directives on File: Yes Advance Directives Date on File: 10/03/23 service: No Physical Exam ED Vital Signs: Vital Signs - 24 hr 11/23/23 01:21 11/23/23 06:08 11/23/23 09:28 Temperature 98.2 F 99.4 F Pulse Rate 110 H 93 88 Respiratory Rate 18 18 20 Blood Pressure 107/67 116/77 143/85 H Pulse Oximetry 98 97 92 Oxygen Delivery Method Room Air Room Air Nasal Cannula 11/23/23 10:00 11/23/23 10:31 11/23/23 11:00 Temperature 98.2 F 98.1 F Pulse Rate 83 84 84 Respiratory Rate 18 16 18 Blood Pressure 124/82 129/79 128/88 Pulse Oximetry 96 97 97 Oxygen Delivery Method Room Air Room Air Room Air BMI result Body Mass Index 23.4 Patient initially tachycardic to 110. Now vitals wnl. Const General: cooperative, no acute distress, alert, awake and poor hygiene Orientation/consciousness: patient oriented x3 Limitations: no limitations HENMT Head: Yes normal to inspection, Yes normocephalic and Yes atraumatic Eyes General: appearance normal, both eyes and all related structures Eyelids: Yes eyelids normal Conjunctivae: conjunctivae normal Pupils: Equal, round and reactive pupils present Neck Neck: Yes normal visual inspection, Yes full ROM, Yes no lymphadenopathy and Yes no meningeal signs Chest Chest palpation & inspection: normal inspection of the chest Resp Effort & Inspection: normal respiratory effort Auscultation: clear to auscultation bilaterally Cardio Other: + 2+ DP/PT pulses Rate: regular rate Rhythm: regular rhythm Heart sounds: S1 normal heart sound present and S2 normal heart sound present Peripheral pulses: radial pulses present and dorsalis pedis present GI Inspection: Yes normal to inspection Palpation (GI): Soft to palpation, nontender and no guarding General: Yes no CVA tenderness Back/Spine/Pelvis Other: + midline thoracic spinous tenderness. No palpable mass or fluctuance. No paraspinal muscle tenderness. No step off deformity. Back: no CVA tenderness Skin Other: + there is skin lesions to upper extremities consistent with IV drug use. Neuro Other: Strength 5/5 intact throughout.?No saddle anesthesia.?Sensation intact to light touch.?Neurovascular intact distally.?patellar DTRs intact b/l. ambulating w/ steady gait. General: patient oriented x3, gait normal, moves all extremities and no meningeal signs Cranial nerves: Yes Equal, round and reactive pupils present Extrem General: Yes normal to inspection and Yes full ROM Course Course Course Narrative: 0804-- Infection suspected at this time. Lactic and blood cultures obtained. IVF and IV zosyn & vanco ordered. 0900-- CBC showing leukocytosis to 21.5 with left shift. Chronic normocytic anemia, improved since last visit. No acute electrolyte abnormalities requiring intervention. BUN elevated to 20. Patient receiving IV fluids. AST elevated to 33 likely secondary to chronic hepatitis. ESR elevated to 89. Lactic wnl. >> patient moaning in pain. Morphine ordered. 1120-- CT thoracic spine shows worsening diskitis/osteomyelitis from T6-T8 with further fragmentation and dissolution of the T7 vertebral body, resulting in vertebral plana. There is worsening kyphotic angulation centered at this level. Progressed ventral epidural soft tissue disease from T6-T8 resulting in fairly significant thecal sac compression. Increase lateral paraspinal soft tissue inflammatory changes with involvement of the posterior mediastinum. New suspected abscess in the right anterolateral paraspinal soft tissues with possible extension into right lung measuring 3.4 x 2.5 cm in size. 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 1135-- Discussed CT findings with infectious disease, Dr. Francine Carreno who recommends involvement of thoracic surgery and neurospine. Will reach out to [facility] for transfer. > discussed workup results with the patient in the need to transfer her to an acute care facility. She is agreeable to this. > she now tells me that she has been coughing up blood beginning yesterday > consistent with imaging findings of TB. Patient placed on TB precautions. 1207-- [facility] declined transfer. Spoke with patient transfer at [facility] who has accepted. Transfer will be ED to ED. Accepting doctor is Dr. Pena. > patient is agreeable with transfer across state lines. > transfer initiated. Medications Administered Discontinued Medications Generic Name Dose Route Start Last Admin Trade Name Freq PRN Reason Stop Dose Admin Hydromorphone HCl 0.5 mg 11/23/23 10:21 11/23/23 10:28 Hydromorphone Hcl 0.5 Mg/0.5 Ml Syringe IVPUSH 11/23/23 10:22 0.5 mg ONCE ONE Administration Protocol Piperacillin Sod/Tazobactam 50 mls @ 100 mls/hr 11/23/23 08:04 11/23/23 08:54 Sod 3.375 gm/ Sodium Chloride IV 11/23/23 08:33 Infused ONCE ONE Infusion Vancomycin HCl 1,250 mg/ 250 mls @ 166.667 mls/hr 11/23/23 08:04 11/23/23 10:54 Sodium Chloride IV 11/23/23 09:33 Infused ONCE ONE Infusion Sodium Chloride 1,632.93 mls @ 1,632.93 mls/hr 11/23/23 08:05 11/23/23 10:22 Ns 30 ml/kg infuse over 1 hr (1632.93 ml) 11/23/23 09:04 Infused IV Infusion .Q1H STA Iohexol 85 ml 11/23/23 09:12 11/23/23 09:12 Iohexol 350 Mg/Ml 100 Ml Infus..Btl IV 11/23/23 09:13 85 ml ONCE ONE Administration Methadone HCl 40 mg 11/23/23 10:51 11/23/23 11:10 Methadone Hcl 20 Mg/2 Ml Oral.Conc PO 11/23/23 10:52 40 mg ONCE ONE Administration Morphine Sulfate 2 mg 11/23/23 09:15 11/23/23 09:23 Morphine Sulfate 2 Mg/Ml Cartridge IVPUSH 11/23/23 09:16 2 mg ONCE ONE Administration Protocol Ondansetron HCl 4 mg 11/23/23 10:21 11/23/23 10:28 Ondansetron Hcl 4 Mg/2 Ml Vial IVPUSH 11/23/23 10:22 4 mg ONCE ONE Administration Medical Decision Making Medical Decision Making [facility] Narrative: 43 year old female with pmhx significant for IVDU presents today with worsening back pain x2 weeks s/p recent hospital admission for bacteremia and epidural abscess. Vital signs initially notable for tachycardia. Now within normal limits. On exam, patient is disheveled. There is midline thoracic spinous tenderness. No palpable mass or fluctuance. No paraspinal muscle tenderness to palpation. No step-off deformity. No focal neuro deficits. Patellar DTRs intact bilaterally. patient ambulating with steady gait. Clinical concern for discitis, bacteremia, epidural abscess. Unlikely cauda equina, guillain barre, cord compression. Plan for labs, imaging. Differential Diagnosis Differential Diagnoses: The differential diagnosis associated with the presentation includes as above. 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 Consult Healthcare Provider Management of the patient was discussed with: Footwear Sales Representative (Infectious disease Dr. Francine Carreno) Lab Data [facility] Lab Attestation statement: I reviewed the patient's lab results. as above. 11/23/23 07:50 11/23/23 07:50 Labs: Lab Results 11/23/23 11/23/23 Range/Units 07:50 11:25 WBC 21.5 H (4.8-10.8) X10*3/uL RBC 4.16 L D (4.20-5.50) X10*6/uL Hgb 11.3 L D (12.0-16.0) g/dl Hct 35.2 L D (37.0-47.0) % MCV 84.6 (80.0-98.0) fL MCH 27.2 (27.0-33.0) pg MCHC 32.1 (31.0-35.0) g/dl RDW 18.7 H (11.0-16.0) % Plt Count 467 H D (160-400) X10*3/uL MPV 8.4 L (9.4-12.3) fL Immature Gran % (Auto) 2.3 H (0.0-0.4) % Neut % (Auto) 84.6 H (45-73) % Lymph % (Auto) 9.5 L (20-40) % [place] % (Auto) 3.3 (2-11) % Eos % (Auto) 0.1 (0-4) % Baso % (Auto) 0.2 (0-2) % Lymph # (Auto) 2.1 (1.2-4.9) X10*3/uL [place] # (Auto) 0.7 (0.1-1.2) X10*3/uL Eos # (Auto) 0.0 (0.0-0.4) X10*3/uL Baso # (Auto) 0.1 (0.0-0.2) X10*3/uL Abs Immat Gran (auto) 0.50 H (0.00-0.03) X10*3/uL Absolute Neuts (auto) 18.2 H (2.0-8.3) x10*3/uL Absolute Nucleated RBC 0.000 (0.0-0.012) X10*3/uL Nucleated RBC % (auto) 0.0 (0.0-0.2) /100WBC ESR 89 H (0-20) MM/HR PT 15.2 H (11.1-13.3) SEC INR 1.3 H (0.9-1.1) Sodium 136 (135-145) mmol/L Potassium 3.8 (3.3-5.1) mmol/L Chloride 100 (96-108) mmol/L Carbon Dioxide 25 (22-29) mmol/L Anion Gap 15 (12-20) BUN 20 H (9-16) mg/dL Creatinine 0.68 (0.5-1.4) mg/dL Estim Creat Clear Calc 78.2 Estimated GFR > 60 Random Glucose 86 (60-115) mg/dL Lactic Acid 1.2 (0.5-2.0) mmol/L Calcium 9.8 (8.4-10.2) mg/dL Magnesium 1.9 (1.6-2.6) mg/dL Total Bilirubin 0.3 (0.0-1.0) mg/dL AST 33 H (5-31) U/L ALT 19 (0-31) U/L Alkaline Phosphatase 96 (39-117) U/L C-Reactive Protein 15.24 H (< or = 0.50) mg/dL Total Protein 9.2 H (6.5-8.0) g/dL Albumin 3.5 (3.5-5.0) g/dL Lipase 27 (8-78) U/L Beta HCG, Quant < 2 mIU/mL Urine Color Yellow Urine Appearance Clear Urine pH 6.5 (5.0-9.0) Ur Specific [place] >= 1.030 H (1.005-1.025) Urine Protein Negative (Neg-Trace) mg/dL Urine Glucose (UA) Negative (Negative) mg/dL Urine Ketones Negative (Negative) mg/dL Urine Blood Negative (Negative) Urine Nitrite Negative (Negative) Ur Leukocyte Esterase Trace H (Negative) Urine RBC 0-2 (0-2) /HPF Urine WBC 0-5 (0-5) /HPF Ur Squamous Epith Cells 0-2 (0-2) /HPF Urine Bacteria None Seen (None Seen) Hyaline Casts 0-2 (0-2) /LPF Salicylates < 5.0 L (15-30) mg/dL Urine Opiates Screen POSITIVE H (Not Detect) Urine Fentanyl Screen POSITIVE H (Not Detect) Ur Barbiturates Screen Not Detected (Not Detect) Ur Phencyclidine Scrn Not Detected (Not Detect) Ur Amphetamines Screen Not Detected (Not Detect) U Benzodiazepines Scrn Not Detected (Not Detect) Urine Cocaine Screen POSITIVE H (Not Detect) U Marijuana (THC) Screen Not Detected (Not Detect) Independent Interpretation I performed an independent interpretation of an: EKG and CT Scan Interpretation: EKG showing normal sinus rhythm with a rate of 93 beats per minute, QT 354, QTC 440, no acute ischemic changes or ST elevations. Questionable change in QRS duration when compared to EKG on 11/02/2023. I have personally interpreted ct thoracic spine and agree with radiologist's interpretation. Radiology Impression Discussion of test interpretation with radiology: I have reviewed the radiologist's reading. Radiologist Impression: CT thoracic spine w IV con IMPRESSION: Worsened discitis/osteomyelitis from the T6 through the T8 levels with further fragmentation and dissolution of the T7 vertebral body resulting in vertebral plana. Worsened kyphotic angulation centered at this level. Progressed ventral epidural soft tissue disease spanning from the T6 through the T8 levels resulting in fairly significant thecal sac compression. Increased lateral paraspinal soft tissue inflammatory changes with involvement of the posterior mediastinum. Additional new suspected abscess in the right anterolateral paraspinal soft tissues which may extend into the right lung, measuring 3.4 x 2.5 cm in size. Tuberculous spondylitis would be a primary differential diagnostic consideration as opposed to a bacterial pyogenic infection; clinically correlate. Imaging findings reported to Dr. Ledesma at 10:40 AM on 11/23/2023. External Record Review External record reviewed: Inpatient record Prescription Management I considered prescription management with: Pain Medication and Antibiotic Chronic Conditions Patient?s care impacted by: Other (IVDU) Social Determinants Patient?s care significantly limited by Social Determinants of Health including: Other Social Determinant of Health Critical Care Time Critical Care Time Critical Care Time: Yes Total Critical Care Time: 120 Attestation: Critical care time in the amount of 120 minutes has been provided to the patient in terms of direct patient care, frequent reevaluation, consultation with Infectious Disease, [facility], review and interpretation of medical data and results, and management of potentially life-threatening conditions. This is all outside of any medical procedures. Discharge Plan Discharge Clinical Impression: Tuberculous spondylitis Patient Disposition: Xfer [facility] Transfer Details: [facility] ED Additional Instructions: ED to ED transfer Accepting doctor, Dr. Pena. Prescriptions: No Action linezolid 600 mg Tablet 600 mg PO Q12H Qty: 55 0RF Interventions: Acute Care Transfer Worksheet (ED) Last Done: 11/23/23 13:47 Discharge Date/Time: 11/23/23 13:49
--- NOTE | 2023-11-23 06:48 | ECG_ITS ---
Test Reason : WEAKNESS Blood Pressure : / mmHG Vent. Rate : 093 BPM Atrial Rate : 093 BPM P-R Int : 122 ms QRS Dur : 082 ms QT Int : 354 ms P-R-T Axes : 057 022 035 degrees QTc Int : 440 ms Normal sinus rhythm Normal ECG When compared with ECG of 02-NOV-2023 04:58, Questionable change in QRS duration Referred By: Ana Ferrera Electronically Signed By:WARNER GOMEZ
--- NOTE | 2023-11-23 07:55 | PC.NURSE ---
patient a&ox3, security changed patient over-clothes in decon, pt difficult stick- iv inserted, labs drawn, pt calm/compliant at this time, waiting for radiology, call ferrell within reach, will continue to monitor
[2023-11-23 07:57] LABS: MANUAL DIFF FLAG NO
[2023-11-23 07:59] LABS: Basophils Absolute Auto 0.1 X10*3/uL (0.0-0.2); Basophils Percent Auto 0.2 % (0-2); Eosinophils Percent Auto 0.1 % (0-4); Hematocrit 35.2 % (37.0-47.0); Hemoglobin 11.3 g/dl (12.0-16.0); Imm Gran Pct Auto 2.3 % (0.0-0.4); Lymphocytes Absolute Auto 2.1 X10*3/uL (1.2-4.9); Lymphocytes Percent Auto 9.5 % (20-40); Mean Corpuscular HGB Conc 32.1 g/dl (31.0-35.0); Mean Corpuscular Hemoglobin 27.2 pg (27.0-33.0); Mean Corpuscular Volume 84.6 fL (80.0-98.0); Mean Platelet Volume 8.4 fL (9.4-12.3); Monocytes Absolute Auto 0.7 X10*3/uL (0.1-1.2); Monocytes Percent Auto 3.3 % (2-11); Neutrophils Absolute Auto 18.2 x10*3/uL (2.0-8.3); Neutrophils Percent Auto 84.6 % (45-73); Platelet Count 467 X10*3/uL (160-400); Red Blood Count 4.16 X10*6/uL (4.20-5.50); Red Cell Distribution Width 18.7 % (11.0-16.0); White Blood Count 21.5 X10*3/uL (4.8-10.8)
[2023-11-23 08:04] LABS: INTERNATIONAL NORM RATIO 1.3 (0.9-1.1); Prothrombin Time 15.2 SEC (11.1-13.3)
[2023-11-23 08:13] LABS: Lactic Acid 1.2 mmol/L (0.5-2.0)
[2023-11-23 08:24] LABS: Alanine Aminotransferase 19 U/L (0-31); Albumin Level 3.5 g/dL (3.5-5.0); Alkaline Phosphatase 96 U/L (39-117); Anion Gap 15 (12-20); Aspartate Amino Transferase 33 U/L (5-31); Bilirubin Total 0.3 mg/dL (0.0-1.0); Blood Urea Nitrogen 20 mg/dL (9-16); C Reactive Protein 15.24 mg/dL (< or = 0.50); Calcium 9.8 mg/dL (8.4-10.2); Carbon Dioxide 25 mmol/L (22-29); Chloride 100 mmol/L (96-108); Creatinine Clr Calc Pharmacy 78.2; Estimated Glomerular Filt Rate > 60; Glucose Random 86 mg/dL (60-115); Lipase 27 U/L (8-78); Magnesium 1.9 mg/dL (1.6-2.6); Potassium 3.8 mmol/L (3.3-5.1); Sodium 136 mmol/L (135-145); Total Protein 9.2 g/dL (6.5-8.0)
[2023-11-23] MEDS: 0.9 % Sodium Chloride 1,632.93 ML 1632.93 ML IV (08:24)
[2023-11-23] MEDS: Piperacillin Sodium/Tazobactam 3.375 GM in 0.9 % Sodium Chloride 50 ML IV (08:24)
[2023-11-23 08:25] LABS: Salicylate < 5.0 mg/dL (15-30)
--- NOTE | 2023-11-23 08:29 | PC.NURSE ---
IVF and zosen started per order
[2023-11-23 08:54] LABS: Erythrocyte Sedimentation Rate 89 MM/HR (0-20)
[2023-11-23] MEDS: iohexoL 350 MG/ML 100 ML INFUS..BTL 85 ML IV (09:12)
[2023-11-23] MEDS: Morphine Sulfate 2 MG/ML CARTRIDGE IVPUSH (09:23)
[2023-11-23 09:24] LABS: HCG Quantitative < 2 mIU/mL
[2023-11-23] MEDS: vancomycin HCL 1,250 MG in 0.9 % Sodium Chloride 250 ML 166.67 MG IV (09:24)
[2023-11-23 09:28] VITALS: BP 143/85; PULSE 88; RESP 20; O2SAT 92
--- NOTE | 2023-11-23 09:29 | PC.NURSE ---
pt went to CT scan, returned with 10/10 back pain, provider notified- order for medication given, pt medicated for pain per order, 2nd abx hung per order, IVF continue to run slowly, vss, call ferrell within reach, will continue to monitor
[2023-11-23 10:00] VITALS: BP 124/82; PULSE 83; RESP 18; TEMP 36.8; O2SAT 96
[2023-11-23] MEDS: ondansetron HCL 4 MG/2 ML VIAL IVPUSH (10:28)
[2023-11-23] MEDS: HYDROmorphone HCl 0.5 MG/0.5 ML SYRINGE IVPUSH (10:28)
--- NOTE | 2023-11-23 10:30 | PC.NURSE ---
pt crying stating her pain is 10/10, pt medicated with dilaudid per order, vss, call ferrell within reach, will continue to monitor.
[2023-11-23 10:31] VITALS: BP 129/79; PULSE 84; RESP 16; O2SAT 97
--- NOTE | 2023-11-23 10:59 | PC.NURSE ---
IVF continue to run slowly
[2023-11-23 11:00] VITALS: BP 128/88; PULSE 84; RESP 18; TEMP 36.7; O2SAT 97
[2023-11-23] MEDS: methADONE HCl 20 MG/2 ML ORAL.CONC 40 MG PO (11:10)
--- NOTE | 2023-11-23 11:17 | PC.NURSE ---
pt medicated with methadone per order, pure wick applied as pt states she is in too much pain to ambulate to bathroom or use bed delgado.
[2023-11-23 11:34] LABS: Appearance Urine Clear; Color Urine Yellow; Glucose Urine UA Negative (Negative); Leukocyte Esterase Urine Trace (Negative); Nitrite Urine Negative (Negative); PH 6.5 (5.0-9.0); Specific Gravity - Urine >= 1.030 (1.005-1.025); UMIC TRIGGER UACC YES; Urine Blood Negative (Negative); Urine Ketones Negative (Negative); Urine Protein Negative (Neg-Trace)
[2023-11-23 11:39] LABS: Bacteria Urine None Seen (None Seen); Hyaline Casts Urine 0-2 /LPF (0-2); RBC Urine 0-2 /HPF (0-2); Squamous Epithelial Cell Urine 0-2 /HPF (0-2); WBC Urine 0-5 /HPF (0-5)
[2023-11-23 11:43] LABS: Amphetamine Screen Urine Not Detected (Not Detect); Barbiturates, Urine Not Detected (Not Detect); Benzodiazepines Screen Urine Not Detected (Not Detect); Cannabinoid Screen Urine Not Detected (Not Detect); Cocaine Screen Urine POSITIVE (Not Detect); Fentanyl, urine POSITIVE (Not Detect); Opiate Screen Urine POSITIVE (Not Detect); Phencyclidine Screen Urine Not Detected (Not Detect)
--- NOTE | 2023-11-23 12:57 | MHC.RECOVRN ---
Met with pt in ED22 after pt presented to the ED for BLE pain/weakness, back pain x 1-2 weeks. Had recently been to [facility] and conducted a self directed discharge. Pt familiar with t/w from previous admissions. Hx CHIP and methadone--last dose was at [facility] on 11/04/23, 50 mg. Pt laying in bed, crying in pain, reporing zaps down BLE and a feeling of compression in her chest. Visibly very uncomfortable. Pt reports heroin/fentanyl use, 1-2 bags daily, last use yesterday. Reports withdrawal symptoms including hot/cold flashes, restlessness, body aches. Pt would like to re-initiate methadone while here. Pt denies other questions or concerns for t/w. Discussed with provider. Plan to administer 40 mg methadone.
--- NOTE | 2023-11-23 23:46 | PC.NURSE ---
Called [facility] and told pts current RN that her BCX 1/2 sets were positive with GPC's.
== END 2023-11-23 13:49 | disposition short-term general hospital (02) ==
PROVIDERS: Physician Assistant Medical; Emergency Provider Emergency Medicine
DX: A18.01 Tuberculosis of spine (principal); R31.9 Hematuria, unspecified; M54.6 Pain in thoracic spine; R05.9 Cough, unspecified; Z79.899 Other long term (current) drug therapy
CPT/HCPCS: 36415; 72129; 80053; 80179; 80307; 81001; 83605; 83690; 83735; 84702; 85025; 85610; 85652; 86140; 87040; 87077; 87147; 87186; 87205; 93005; 96361; 96365; 96375; 99285; J1170; J2270; J2405; J2543; J3371; Q9967

== ENCOUNTER → 2023-11-23 06:48 | Outpatient (BNV) | payer SELFPAY | PROVIDERS: Emergency Provider Emergency Medicine; Visit Provider Internal Medicine | DX: R53.1 Weakness (principal) | CPT/HCPCS: 93010 ==

== ENCOUNTER 2024-03-27 03:55 | Inpatient (IN) | payer OTHER, SELFPAY ==
[2024-03-27] VITALS (31 sets, daily range): BP systolic 73–198; BP diastolic 35–107; PULSE 56–110; RESP 16–30; TEMP 34.1–37.8; O2SAT 93–100; BMI 35.2
--- NOTE | 2024-03-27 | ECG_ITS ---
Test Reason : QTc Prolongation Blood Pressure : / mmHG Vent. Rate : 066 BPM Atrial Rate : 066 BPM P-R Int : 136 ms QRS Dur : 084 ms QT Int : 460 ms P-R-T Axes : 039 025 028 degrees QTc Int : 482 ms Normal sinus rhythm Prolonged QT Abnormal ECG When compared with ECG of 27-MAR-2024 08:58, Vent. rate has decreased BY 32 BPM Nonspecific T wave abnormality no longer evident in Anterior leads Referred By: Dara Bautista Electronically Signed By:WARNER GOMEZ
--- NOTE | ~2024-03-27 | XR_ITS ---
EXAMINATION: XR CHEST CLINICAL INFORMATION: Intubation COMPARISON: Previous chest CT from earlier the same day TECHNIQUE: Frontal view of the chest was obtained. FINDINGS: Endotracheal tube tip 3 cm above the kike. Nasogastric tube projects over proximal stomach. Cardiac and mediastinal contours are stable. Lungs are clear. No pleural effusion or pneumothorax. Extensive surgical hardware in the thoracic spine. XR/XR chest 1V IMPRESSION: Satisfactory position of endotracheal and nasogastric tubes.
--- NOTE | ~2024-03-27 | XR_ITS ---
EXAMINATION: XR CHEST CLINICAL INFORMATION: Status post triple lumen catheter placement. COMPARISON: Chest radiograph dated 03/27/2024 at 1:18 PM. TECHNIQUE: Frontal view of the chest was obtained. FINDINGS: The endotracheal tube is unchanged in position terminating 3 cm above the kike. The enteric tube has been removed. There is a new left internal jugular vein catheter terminating at the cavoatrial junction. There is no pneumothorax. Heart size is stable. Lungs are clear. No pleural effusion. There is thoracic spine hardware. XR/XR chest 1V IMPRESSION: There is a new left internal jugular vein catheter terminating at the cavoatrial junction. There is no pneumothorax.
--- NOTE | ~2024-03-27 | CT_ITS ---
EXAMINATION: CT HEAD WITHOUT CONTRAST CLINICAL INFORMATION: Acute change in mental status. COMPARISON: CT head 04/10/2020. TECHNIQUE: Contiguous axial imaging was performed from the skull base to vertex without intravenous administration of contrast. This CT examination was performed using dose optimization techniques as appropriate, variously including the following: *Automated exposure control *Adjustment of mA and/or kV according to patient size (this includes techniques or standardized protocols for targeted exams where dose is matched to indication/reason for exam; i.e. extremities or head) *Use of iterative reconstruction technique DLP: 631 mGy-cm FINDINGS: There is no evidence of acute intracranial hemorrhage or edematous territorial infarction. A few foci of hypoattenuation in the periventricular and deep white matter are consistent with mild microangiopathy. Siddiqui-white matter differentiation is preserved. Proportional prominence of the ventricles and sulcal spaces. No evidence for obstructive hydrocephalus. No abnormal mass effect or midline shift. No extra-axial fluid collections. No acute soft tissue or osseous abnormalities. Inspissated mucus secretions in the left maxillary sinus. Mild mucosal thickening of the paranasal sinuses. The mastoids and middle ear cavities are clear. CT/CT head/brain wo IV con IMPRESSION: No evidence of acute intracranial hemorrhage or edematous territorial infarction.
--- NOTE | ~2024-03-27 | CT_ITS ---
EXAMINATION: CT CHEST WITHOUT CONTRAST CLINICAL INFORMATION: Hypoxia and fever COMPARISON: Previous chest x-ray October [address] November 2023 TECHNIQUE: Multidetector volumetric CT imaging of the chest was done. Axial MIP volume rendering provided. Sagittal and coronal reformatted images were obtained. This CT examination was performed using dose optimization techniques as appropriate, variously including the following: *Automated exposure control *Adjustment of mA and/or kV according to patient size (this includes techniques or standardized protocols for targeted exams where dose is matched to indication/reason for exam; i.e. extremities or head) *Use of iterative reconstruction technique DLP: 1029 mGy-cm FINDINGS: LUNGS: There is dependent atelectasis. The lungs are otherwise clear. MEDIASTINUM: Enlarged heart. No pericardial effusion. No coronary artery calcification. Small mediastinal lymph nodes. Normal caliber thoracic aorta. CORONARY ARTERY CALCIFICATION: None visualized on this study. PLEURA: Focal pleural thickening and increased soft tissue in small calcification in the right paravertebral region adjacent to the surgical hardware, greatest at T7-T8. This is decreased in size from November 2023 exam. No pleural effusion or pneumothorax. AXILLA: No lymphadenopathy. UPPER ABDOMEN: Unremarkable. OSSEOUS STRUCTURES: Posterior fusion. Hardware from T3 to T11 with transcortical screws from T3 to T5 and T8-T11. Changes from old discitis/osteomyelitis from T6 to T8 with bone loss and destruction of the inferior endplate of the T7 vertebral body does not appear appreciably changed from November [address]/CT chest wo IV con IMPRESSION: 1. Focal pleural thickening and increased soft tissue in the right paravertebral region adjacent to the surgical hardware, greatest at T7-T8. This is decreased in size from November 2023 exam. 2. Changes from old discitis/osteomyelitis from T6 to T8 with bone loss and destruction of the inferior endplate of the T7 vertebral body does not appear appreciably changed from November 2023 exam. Posterior fusion hardware from T11 to T3 appears unchanged. 3. Enlarged heart. Fleischner guidelines were followed.
--- NOTE | ~2024-03-27 | XR_ITS ---
EXAMINATION: XR CHEST CLINICAL INFORMATION: Tube placement. COMPARISON: 03/27/2024 TECHNIQUE: Frontal view of the chest was obtained. FINDINGS: ET tube terminates approximately 5 cm from the kike, unchanged as compared to prior. Enteric tube extends into the stomach and off of the inferior border of the study. Left IJ central venous catheter tip terminates within the SVC. Posterior fusion hardware is present in the thoracic spine. EKG leads are again noted. Lung volumes are low. No consolidation, pneumothorax, or pleural effusion. Cardiac silhouette is enlarged and unchanged. Pulmonary vasculature is normal. No acute osseous findings. XR/XR chest 1V IMPRESSION: 1. ET tube terminates 5 cm from the kike. 2. Left IJ central venous catheter tip terminates in the SVC. 3. Low lung volumes. No acute pulmonary findings.
--- NOTE | 2024-03-27 04:17 | ECG_ITS ---
Test Reason : ETOH Blood Pressure : / mmHG Vent. Rate : 112 BPM Atrial Rate : 112 BPM P-R Int : 116 ms QRS Dur : 088 ms QT Int : 352 ms P-R-T Axes : 003 009 134 degrees QTc Int : 480 ms Sinus tachycardia Low voltage QRS Nonspecific T wave abnormality Abnormal ECG When compared with ECG of 23-NOV-2023 07:23, Nonspecific T wave abnormality, worse in Inferior leads Nonspecific T wave abnormality now evident in Lateral leads Referred By: Amadeo Medrano Electronically Signed By:WARNER GOMEZ
[2024-03-27] MEDS: diphenhydrAMINE HCL 50 MG/ML VIAL IM (04:20)
[2024-03-27] MEDS: LORazepam 2 MG/ML VIAL IM (04:20)
[2024-03-27] MEDS: Haloperidol Lactate 5 MG/ML VIAL IM (04:20)
--- NOTE | 2024-03-27 04:27 | ED.GENADULT ---
HPI - General Adult General Chief complaint: ETOH/Substance Use Stated complaint: drug use Time Seen by Provider: 03/27/24 04:15 Source: EMS and old records reviewed Mode of arrival: EMS Limitations: altered mental status History of Present Illness HPI narrative: 43-year-old female was found wandering in the street acting erratically brought in by EMS, crack pipe and heroin was found on the patient while she is in the ED, patient in bed kicking and acting manic, erratic, uncontrollable, not answering question unable to obtain history or physical exam at this point patient was given initially 5 mg Haldol, 2 mg of Ativan, 50 mg of Benadryl. Reviewing all chart patient with history of IV drug use disorder, bacteremia, diskitis Related Data Previous Rx's ?Medication ?Instructions ?Recorded linezolid 600 mg tablet 600 mg PO Q12H #55 tabs 10/02/23 Allergies Allergy/AdvReac Type Severity Reaction Status Date / Time No Known Allergies Allergy Verified 03/27/24 04:12 Review of Systems Review of Systems: Yes Unobtainable due to mental status PMFSH Past Medical History Medical History Opioid use disorder Bacteremia Polysubstance use disorder Hepatitis C antibody positive in blood Cocaine abuse Heroin abuse PTSD (post-traumatic stress disorder) Depression Anxiety Opiate abuse, continuous Social History Social History Household Members: Other Housing: Homeless Do you presently have visiting nurse or other home services: No Alcohol intake: never Comment: pt refusing camera and bed alarms Patient Tobacco Use Status: Current everyday Tobacco user Tobacco use type: Cigarette Cigarette Packs Per Day: 1 Cigarettes Per Day: 20.0 Years Smoked: 30 Second Hand Smoke Exposure: Yes Substance Use Type: Heroin Advance Directives Date on File: 10/03/23 Do you have a plan to hurt others: No Plan service: No Physical Exam ED Vital Signs: Vital Signs - 24 hr 03/27/24 05:13 Temperature 99.7 F Pulse Rate 70 Respiratory Rate 30 H Blood Pressure 100/60 Pulse Oximetry 93 Oxygen Delivery Method Nasal Cannula BMI result Body Mass Index 35.2 Unable to obtain vital signs Able to perform physical exam due to erratic behavior and agitation. Course Reevaluation(s) Reevaluation #1: Presented with a manic behavior found to have crack pipes and heroin on her patient behavior is likely secondary to drug abuse, patient will need further evaluation when she calmed down Time: 04:35 Medications Administered Discontinued Medications Generic Name Dose Route Start Last Admin Trade Name Freq PRN Reason Stop Dose Admin Diphenhydramine HCl 50 mg 03/27/24 04:15 03/27/24 04:20 Diphenhydramine Hcl 50 Mg/Ml Vial IM 03/27/24 04:16 50 mg ONCE ONE Administration Haloperidol Lactate 5 mg 03/27/24 04:15 03/27/24 04:20 Haloperidol Lactate 5 Mg/Ml Vial IM 03/27/24 04:16 5 mg ONCE ONE Administration Lorazepam 2 mg 03/27/24 04:15 03/27/24 04:20 Lorazepam 2 Mg/Ml Vial IM 03/27/24 04:16 2 mg ONCE ONE Administration Medical Decision Making Differential Diagnosis Differential Diagnoses: The differential diagnosis associated with the presentation includes (Substance abuse, electrolyte derangement, anemia, pneumonia, dysrhythmia.) Admission/Observation Consideration of admission/observation: Escalation of care including admission/observation considered Lab Data MDM Lab Attestation statement: I reviewed the patient's lab results. 03/27/24 05:29 03/27/24 05:29 Labs: Lab Results 03/27/24 Range/Units 05:29 WBC 8.8 (4.8-10.8) X10*3/uL RBC 4.62 (4.20-5.50) X10*6/uL Hgb 12.3 (12.0-16.0) g/dl Hct 36.1 L (37.0-47.0) % MCV 78.1 L (80.0-98.0) fL MCH 26.6 L (27.0-33.0) pg MCHC 34.1 (31.0-35.0) g/dl RDW 14.7 (11.0-16.0) % Plt Count 304 D (160-400) X10*3/uL MPV 9.7 (9.4-12.3) fL Immature Gran % (Auto) 0.3 (0.0-0.4) % Neut % (Auto) 72.8 (45-73) % Lymph % (Auto) 18.4 L (20-40) % [place] % (Auto) 8.0 (2-11) % Eos % (Auto) 0.2 (0-4) % Baso % (Auto) 0.3 (0-2) % Lymph # (Auto) 1.6 (1.2-4.9) X10*3/uL [place] # (Auto) 0.7 (0.1-1.2) X10*3/uL Eos # (Auto) 0.0 (0.0-0.4) X10*3/uL Baso # (Auto) 0.0 (0.0-0.2) X10*3/uL Abs Immat Gran (auto) 0.03 (0.00-0.03) X10*3/uL Absolute Neuts (auto) 6.4 (2.0-8.3) x10*3/uL Absolute Nucleated RBC 0.000 (0.0-0.012) X10*3/uL Nucleated RBC % (auto) 0.0 (0.0-0.2) /100WBC Sodium 137 (135-145) mmol/L Potassium 2.9 L* (3.3-5.1) mmol/L Chloride 103 (96-108) mmol/L Carbon Dioxide 20 L (22-29) mmol/L Anion Gap 17 (12-20) BUN 37 H (9-16) mg/dL Creatinine 0.87 (0.5-1.4) mg/dL Estim Creat Clear Calc 80.5 Estimated GFR > 60 Random Glucose 114 (60-115) mg/dL Calcium 9.9 (8.4-10.2) mg/dL Total Bilirubin 0.5 (0.0-1.0) mg/dL Direct Bilirubin 0.2 (0.0-0.5) mg/dL AST 43 H (5-31) U/L ALT 24 (0-31) U/L Alkaline Phosphatase 92 (39-117) U/L Troponin I High Sens 4.0 D (<3.5-17.0) ng/L B-Natriuretic Peptide 14 (<100) pg/mL Total Protein 8.8 H (6.5-8.0) g/dL Albumin 4.3 (3.5-5.0) g/dL Lipase 49 (8-78) U/L Discharge Plan Discharge Clinical Impression: Substance abuse, Agitation, Hypokalemia Patient Disposition: Still a Patient Prescriptions: No Action linezolid 600 mg Tablet 600 mg PO Q12H Qty: 55 0RF Print Language: Nigerien
--- NOTE | 2024-03-27 05:32 | MHC.EDTECH ---
All belongings are in [facility], patient placed on the personnel monitor,EKG taken per order and signed by provider,labs and sars obtained and sent to lab,vitals taken
[2024-03-27 05:38] LABS: Basophils Percent Auto 0.3 % (0-2); Eosinophils Percent Auto 0.2 % (0-4); Hematocrit 36.1 % (37.0-47.0); Hemoglobin 12.3 g/dl (12.0-16.0); Imm Gran Abs Auto 0.03 X10*3/uL (0.00-0.03); Imm Gran Pct Auto 0.3 % (0.0-0.4); Lymphocytes Absolute Auto 1.6 X10*3/uL (1.2-4.9); Lymphocytes Percent Auto 18.4 % (20-40); MANUAL DIFF FLAG NO; Mean Corpuscular HGB Conc 34.1 g/dl (31.0-35.0); Mean Corpuscular Hemoglobin 26.6 pg (27.0-33.0); Mean Corpuscular Volume 78.1 fL (80.0-98.0); Mean Platelet Volume 9.7 fL (9.4-12.3); Monocytes Absolute Auto 0.7 X10*3/uL (0.1-1.2); Neutrophils Absolute Auto 6.4 x10*3/uL (2.0-8.3); Neutrophils Percent Auto 72.8 % (45-73); Platelet Count 304 X10*3/uL (160-400); Red Blood Count 4.62 X10*6/uL (4.20-5.50); Red Cell Distribution Width 14.7 % (11.0-16.0); White Blood Count 8.8 X10*3/uL (4.8-10.8)
[2024-03-27 05:57] LABS: Alanine Aminotransferase 24 U/L (0-31); Albumin Level 4.3 g/dL (3.5-5.0); Alkaline Phosphatase 92 U/L (39-117); Anion Gap 17 (12-20); Aspartate Amino Transferase 43 U/L (5-31); Bilirubin Direct 0.2 mg/dL (0.0-0.5); Bilirubin Total 0.5 mg/dL (0.0-1.0); Blood Urea Nitrogen 37 mg/dL (9-16); Calcium 9.9 mg/dL (8.4-10.2); Carbon Dioxide 20 mmol/L (22-29); Chloride 103 mmol/L (96-108); Creatinine Clr Calc Pharmacy 80.5; Estimated Glomerular Filt Rate > 60; Glucose Random 114 mg/dL (60-115); Lipase 49 U/L (8-78); Potassium 2.9 mmol/L (3.3-5.1); Sodium 137 mmol/L (135-145); Total Protein 8.8 g/dL (6.5-8.0)
[2024-03-27 06:01] LABS: B Type Natriuretic Peptide 14 pg/mL (<100)
[2024-03-27 06:14] LABS: Influenza A PCR NEGATIVE (Negative); Influenza B PCR NEGATIVE (Negative); Resp Syncy Virus RNA Qual PCR NEGATIVE (Negative); SARS COV2 PCR INHOUSE NEGATIVE (Negative)
--- NOTE | 2024-03-27 07:41 | PC.NURSE ---
patient found to be upside down in bed. arousable to verbal stimuli. oxygen found to be in low 80's on room air, placed on 2L nasal cannula now at 98%.
[2024-03-27 08:09] LABS: Magnesium 2.2 mg/dL (1.6-2.6)
--- NOTE | 2024-03-27 08:09 | PC.NURSE ---
repositioned in the bed, security at bedside to assist. altered, combative in bed. writhing around while trying to establish IV. IV established, verbal order for total of 6mg IV ativan by provider. patient remains on nasal cannula 2L.
[2024-03-27] MEDS: Acetaminophen Supp 650 MG SUPP.RECT PR (08:15)
[2024-03-27] MEDS: 0.9 % Sodium Chloride 2,449.41 ML 2449.41 ML IV (08:15)
[2024-03-27] MEDS: LORazepam 2 MG/ML VIAL IVPUSH ×6 (08:15→13:28)
--- NOTE | 2024-03-27 08:35 | ECG_ITS ---
Test Reason : qtc check Blood Pressure : / mmHG Vent. Rate : 098 BPM Atrial Rate : 098 BPM P-R Int : 124 ms QRS Dur : 084 ms QT Int : 390 ms P-R-T Axes : 025 017 022 degrees QTc Int : 497 ms Normal sinus rhythm Nonspecific T wave abnormality Prolonged QT Abnormal ECG When compared with ECG of 27-MAR-2024 05:13, Nonspecific T wave abnormality, improved in Inferior leads Nonspecific T wave abnormality has replaced inverted T waves in Anterior leads Referred By: Hailey Ledesma Electronically Signed By:WARNER GOMEZ
--- NOTE | 2024-03-27 08:47 | PC.NURSE ---
off to ct scan at this time
--- NOTE | 2024-03-27 09:14 | PC.NURSE ---
patient difficult blood draw. straight cath obtained w/ 300mL urine output. urine specimen obtained and sent.
[2024-03-27 09:20] LABS: HCG Quantitative < 2 mIU/mL
--- NOTE | 2024-03-27 09:33 | PC.NURSE ---
first set of blood cultures obtained and sent, difficult draw. multiple staff needed to hold patient in order to obtain lab work. patient now resting quietly
[2024-03-27] MEDS: cefTRIAXone sodium 2 GM in 0.9 % Sodium Chloride 50 ML IV (09:36)
--- NOTE | 2024-03-27 09:36 | PC.NURSE ---
second set of cultures obtained
[2024-03-27] MEDS: Potassium Chloride/H20 10 MEQ/100 ML PIGGYBACK 100 MEQ IV ×4 (09:38→15:40)
[2024-03-27 09:40] LABS: Appearance Urine Clear; Color Urine Yellow; Glucose Urine UA Negative (Negative); Leukocyte Esterase Urine Negative (Negative); Nitrite Urine Negative (Negative); Specific Gravity - Urine 1.025 (1.005-1.025); UMIC TRIGGER UACC YES; UPreg QC Valid YES; Urine Blood Negative (Negative); Urine Ketones Negative (Negative); Urine Pregnancy NEGATIVE (NEGATIVE); Urine Protein 30 (1+) mg/dL (Neg-Trace)
[2024-03-27 09:45] LABS: Bacteria Urine None Seen (None Seen); RBC Urine 0-2 /HPF (0-2); WBC Urine 0-5 /HPF (0-5)
[2024-03-27] MEDS: Magnesium Sulfate/H2O 2 GM/50 ML PIGGYBACK IV (09:48)
[2024-03-27 09:49] LABS: Amphetamine Screen Urine Not Detected (Not Detect); Barbiturates, Urine Not Detected (Not Detect); Benzodiazepines Screen Urine Not Detected (Not Detect); Buprenorphine Scr Not Detected (Not Detect); Cannabinoid Screen Urine POSITIVE (Not Detect); Cocaine Screen Urine POSITIVE (Not Detect); Fentanyl, urine POSITIVE (Not Detect); Methadone Screen, Urine Positive (Not Detect); Opiate Screen Urine POSITIVE (Not Detect); Oxycodone Screen Urine Not Detected (Not Detect); Phencyclidine Screen Urine Not Detected (Not Detect)
[2024-03-27 09:54] LABS: Lactic Acid 0.9 mmol/L (0.5-2.0)
--- NOTE | 2024-03-27 10:00 | PC.NURSE ---
IV established in patient's right foot, provider aware. medicated per the MAR. patient resting quietly at this time.
[2024-03-27 11:27] LABS: Anion Gap 11 (12-20); Blood Urea Nitrogen 23 mg/dL (9-16); Calcium 9.2 mg/dL (8.4-10.2); Carbon Dioxide 21 mmol/L (22-29); Chloride 110 mmol/L (96-108); Creatinine Clr Calc Pharmacy 101.5; Estimated Glomerular Filt Rate > 60; Glucose Random 106 mg/dL (60-115); Potassium 3.4 mmol/L (3.3-5.1); Sodium 139 mmol/L (135-145)
--- NOTE | 2024-03-27 12:07 | P.HPCC_ITS ---
History of Present Illness Date of Service: 03/27/24 Chief Complaint: Agitation Patient is a 43 Y F with hypertension, intravenous drug use, c/b prior MSSA bacteremia, osteomyelitis/discitis, initially presenting to emergency department on 03/26 found outside, erratic behavior, in setting of suspected cocaine and heroin use; in emergency department, work-up grossly reassuring, though found to be positive for polysubstances, including methadone, as well as prolonged QTc; in emergency department, patient intermittently agitated, intubated Review of Systems 2 Review of Systems: Yes unobtainable due to endotracheal tube and Unobtainable due to mental status PMFSH Past Medical History Medical History Opioid use disorder Bacteremia Polysubstance use disorder Hepatitis C antibody positive in blood Cocaine abuse Heroin abuse PTSD (post-traumatic stress disorder) Depression Anxiety Opiate abuse, continuous Social History Social History Household Members: Other Housing: Homeless Do you presently have visiting nurse or other home services: No Alcohol intake: never Comment: pt refusing camera and bed alarms Patient Tobacco Use Status: Current everyday Tobacco user Tobacco use type: Cigarette Cigarette Packs Per Day: 1 Cigarettes Per Day: 20.0 Years Smoked: 30 Second Hand Smoke Exposure: Yes Substance Use Type: Heroin Advance Directives: Yes Advance Directives on File: Yes Advance Directives Date on File: 10/03/23 Do you have a plan to hurt others: No Plan service: No Meds Allergies Allergy/AdvReac Type Severity Reaction Status Date / Time No Known Allergies Allergy Verified 03/27/24 04:12 Active Medications: Current Medications Heparin Sodium (Porcine) (Heparin Sodium,Porcine 5,000 Unit/Ml Vial) 5,000 unit SUBCUT Q8H ANA Potassium Chloride (Potassium Chloride/H20) 10 meq in 100 mls @ 100 mls/hr IV Q1H ANA Stop: 03/27/24 12:29 Last Admin: 03/27/24 11:00 Dose: 100 mls/hr Dexmedetomidine HCl (Precedex) 400 mcg in 100 mls @ 0 mls/hr IVCONT .Q0M ANA; Protocol Vancomycin HCl (Vancomycin/Ns) 2,000 mg in 500 mls @ 250 mls/hr IV ONCE ONE Stop: 03/27/24 13:57 Dexmedetomidine HCl (Precedex) 400 mcg in 100 mls @ 0 mls/hr IVCONT .Q0M ANA; Protocol Pharmacy Consult (Consult Rx Vancomycin Dosing) 1 each MISCELLANE DAILY PRN PRN Reason: Consult order Home Medications ?Medication ?Instructions ?Recorded ?Confirmed ?Last Taken ?Type baclofen 20 mg tablet 20 mg PO TID 03/27/24 03/27/24 Unknown History clonidine HCl 0.1 mg tablet 0.1 mg PO BID 03/27/24 03/27/24 Unknown History escitalopram oxalate 10 mg tablet 10 mg PO DAILY 03/27/24 03/27/24 Unknown History folic acid 1 mg tablet 1 mg PO DAILY 03/27/24 03/27/24 Unknown History lactulose 10 gram/15 mL oral 30 ml PO TID 03/27/24 03/27/24 Unknown History solution ondansetron HCl 4 mg tablet 8 mg PO BID 03/27/24 03/27/24 Unknown History pantoprazole 40 mg tablet,delayed 40 mg PO BID 03/27/24 03/27/24 Unknown History release pregabalin 200 mg capsule 200 mg PO TID 03/27/24 03/27/24 Unknown History quetiapine 100 mg tablet 100 mg PO BEDTIME 03/27/24 03/27/24 Unknown History quetiapine 50 mg tablet 50 mg PO BEDTIME 03/27/24 03/27/24 Unknown History ramelteon 8 mg tablet (Rozerem) 8 mg PO BEDTIME 03/27/24 03/27/24 Unknown History Physical Exam 2 Vital Signs: Vital Signs: Last Vital Signs Temp 98.5 F 03/27/24 11:01 Pulse 96 03/27/24 11:01 Resp 18 03/27/24 11:01 BP 100/66 03/27/24 11:01 Pulse Ox 99 03/27/24 10:00 O2 Del Method Nasal Cannula 03/27/24 10:00 O2 Flow Rate 2 03/27/24 10:00 BMI result Body Mass Index 35.2 Const: Other: intubated, sedated General: comfortable, no acute distress and well developed HEENT: Head: Yes normal to inspection, Yes normocephalic and Yes atraumatic Eyes: General: appearance normal, both eyes and all related structures Neck: Neck: Yes normal visual inspection, Yes full ROM, Yes no meningeal signs and Yes supple Chest: Chest palpation & inspection: normal inspection of the chest Resp: Other: no appreciable rales, rhonchi, wheezing Cardio: Rate: regular rate Rhythm: regular rhythm GI: Inspection: Yes normal to inspection, No Abdominal wall edema and No distended Palpation (GI): Soft to palpation, not firm, nontender, no guarding and not rigid : External Female Exam: normal external appearance Skin: General skin exam: no rashes or lesions noted Neuro: Other: unable to participate in neurological exam General: tone normal and no meningeal signs Extrem: General: Yes normal to inspection, Yes capillary refill normal and Yes no clubbing, cyanosis or edema Psych: Other: unable to assess Results Labs 03/27/24 05:29 03/27/24 11:09 Labs: Laboratory Results - last 24 hr 03/27/24 03/27/24 03/27/24 05:29 09:16 09:31 MCV 78.1 L MCH 26.6 L MCHC 34.1 RDW 14.7 Plt Count 304 D MPV 9.7 Immature Gran % (Auto) 0.3 Neut % (Auto) 72.8 Lymph % (Auto) 18.4 L Gem % (Auto) 8.0 Eos % (Auto) 0.2 Baso % (Auto) 0.3 Lymph # (Auto) 1.6 Gem # (Auto) 0.7 Eos # (Auto) 0.0 Baso # (Auto) 0.0 Abs Immat Gran (auto) 0.03 Absolute Neuts (auto) 6.4 Absolute Nucleated RBC 0.000 Nucleated RBC % (auto) 0.0 Anion Gap 17 Estim Creat Clear Calc 80.5 Estimated GFR > 60 Random Glucose 114 Lactic Acid 0.9 Calcium 9.9 Magnesium 2.2 Total Bilirubin 0.5 Direct Bilirubin 0.2 AST 43 H ALT 24 Alkaline Phosphatase 92 Total Creatine Kinase 850 H Troponin I High Sens 4.0 D B-Natriuretic Peptide 14 Total Protein 8.8 H Albumin 4.3 Lipase 49 Beta HCG, Quant < 2 Urine Color Yellow Urine Appearance Clear Urine pH 6.0 Ur Specific [place] 1.025 Urine Protein 30 (1+) H Urine Glucose (UA) Negative Urine Ketones Negative Urine Blood Negative Urine Nitrite Negative Ur Leukocyte Esterase Negative Urine RBC 0-2 Urine WBC 0-5 Ur Squamous Epith Cells 6-10 Urine Bacteria None Seen Hyaline Casts 3-5 Urine Test NEGATIVE Urine Opiates Screen POSITIVE H Ur Buprenorphine Scrn Not Detected Ur Oxycodone Screen Not Detected Urine Methadone Screen Positive H Urine Fentanyl Screen POSITIVE H Ur Barbiturates Screen Not Detected Ur Phencyclidine Scrn Not Detected Ur Amphetamines Screen Not Detected U Benzodiazepines Scrn Not Detected Urine Cocaine Screen POSITIVE H U Marijuana (THC) Screen POSITIVE H Influenza Type A (PCR) NEGATIVE Influenza Type B (PCR) NEGATIVE RSV RNA Qual (PCR) NEGATIVE SARS-CoV-2 RNA (RT-PCR) NEGATIVE 03/27/24 11:09 MCV MCH MCHC RDW Plt Count MPV Immature Gran % (Auto) Neut % (Auto) Lymph % (Auto) Gem % (Auto) Eos % (Auto) Baso % (Auto) Lymph # (Auto) Gem # (Auto) Eos # (Auto) Baso # (Auto) Abs Immat Gran (auto) Absolute Neuts (auto) Absolute Nucleated RBC Nucleated RBC % (auto) Anion Gap 11 L Estim Creat Clear Calc 101.5 Estimated GFR > 60 Random Glucose 106 Lactic Acid Calcium 9.2 D Magnesium Total Bilirubin Direct Bilirubin AST ALT Alkaline Phosphatase Total Creatine Kinase Troponin I High Sens B-Natriuretic Peptide Total Protein Albumin Lipase Beta HCG, Quant Urine Color Urine Appearance Urine pH Ur Specific [place] Urine Protein Urine Glucose (UA) Urine Ketones Urine Blood Urine Nitrite Ur Leukocyte Esterase Urine RBC Urine WBC Ur Squamous Epith Cells Urine Bacteria Hyaline Casts Urine Test Urine Opiates Screen Ur Buprenorphine Scrn Ur Oxycodone Screen Urine Methadone Screen Urine Fentanyl Screen Ur Barbiturates Screen Ur Phencyclidine Scrn Ur Amphetamines Screen U Benzodiazepines Scrn Urine Cocaine Screen U Marijuana (THC) Screen Influenza Type A (PCR) Influenza Type B (PCR) RSV RNA Qual (PCR) SARS-CoV-2 RNA (RT-PCR) Imaging Radiologist's Impressions: Impressions Chest CT 03/27/24 09:14 IMPRESSION: 1. Focal pleural thickening and increased soft tissue in the right paravertebral region adjacent to the surgical hardware, greatest at T7-T8. This is decreased in size from November 2023 exam. 2. Changes from old discitis/osteomyelitis from T6 to T8 with bone loss and destruction of the inferior endplate of the T7 vertebral body does not appear appreciably changed from November 2023 exam. Posterior fusion hardware from T11 to T3 appears unchanged. 3. Enlarged heart. Fleischner guidelines were followed. Head CT 03/27/24 09:14 IMPRESSION: No evidence of acute intracranial hemorrhage or edematous territorial infarction. Assessment and Plan (1) Substance abuse: Status: Acute (2) Agitation: Status: Acute Plan Patient is a 43 Y F with hypertension, IV drug use, c/b MSSA bacteremia, osteomyelitis/discitis, p/w agitation in setting of substance misuse, found to be agitated in ED, admitted to ICU for dexmedetomidine gtt N: agitation; CT H reassuring; likely d/t substance misuse; intubated, propofol, midazolam gtt; wean as tolerated CV: QTc prolongation; judicious use of QTc-prolonging agents; hypertension R: intubated; wean as tolerated GI: NPO : no acute issues H: no acute issues ID: given history of bacteremia, osteomyelitis/discitis, empiric antibiotics, linezolid, zosyn E: no acute issues; to monitor glucose; follow-up TSH/T4 P: agitation, as described above; substance misuse
[2024-03-27] MEDS: dexmedeTOMIDidine HCL/NS 400 MCG/100 ML INFUS..BTL 20.41 MCG IVCONT (12:09)
--- NOTE | 2024-03-27 12:13 | PC.NURSE ---
patient began to awake, becoming more combative and agitated. pulling at medical equipment in room. 2mg IV ativan given, continues to pull at equipment.
--- NOTE | 2024-03-27 12:14 | PC.NURSE ---
precedex infusing at 1mcg/kg/h at this time.
[2024-03-27] MEDS: Rocuronium Bromide 50 MG/5 ML VIAL 75 MG IVPUSH (13:00)
[2024-03-27] MEDS: Etomidate 20 MG/10 ML VIAL IVPUSH (13:00)
[2024-03-27] MEDS: fentaNYL citrate/NS 1,000 MCG/100 ML PLAST..BAG 7.5 MCG IVCONT (13:15)
[2024-03-27] MEDS: Midazolam HCl/NS 50 MG/50 ML PLAST..BAG IVCONT ×2 (13:15→18:33)
--- NOTE | 2024-03-27 13:34 | PHA.MEDREC ---
Pharmacy Consult ? Medication Reconciliation Pharmacy has completed the medication reconciliation Patient has been altered and combative all morning. Used pharmacy claims.
--- NOTE | 2024-03-27 14:12 | PC.NURSE ---
late entry: 1215: IV in left upper arm infiltrated, precedex paused and IV removed. patient continues to be combative and agitated in room. writhing around in bed, multiple staff at bedside for assistance with patient. 1220: precedex re-initiated in IV in patient's right foot. infusing at max rate at this time. 1230: attempting to start new IV, patient difficult stick. multiple staff attempting new IV. medicated with verbal order from provider for 2mg IV push ativan. 1245: continuing to attempt IV - continues to be uncooperative, and pulling at equipment. multiple staff in room to assist with holding patient in order to initiate IV. additional verbal order for 2mg IV push ativan. verbal order to titrate patient off of precedex at this time. 1250: 20gIV established in right forearm and wrapped. order for precedex to be stopped. respiratory called for intubation d/t agitation and safety. 1300: 20mg Etomidate pushed followed by 75mg Rocuronium pushed. 1305: patient successfully intubated by provider. 7.5 et tube, 21 at lip. + color change. 1315: medicated with Versed gtt at 4mg/hr in right foot and Fentanyl gtt at 75mcg/hr in right forearm.
[2024-03-27] MEDS: Piperacillin Sodium/Tazobactam 3.375 GM in 0.9 % Sodium Chloride 50 ML IV ×2 (14:43→21:49)
[2024-03-27] MEDS: Midazolam HCl/PF 2 MG/2 ML VIAL 4 MG IVPUSH (15:15)
[2024-03-27] MEDS: Norepinephrine Bitartrate/D5W 8 MG/250 ML PLAST..BAG 7.65 MG IV (15:25)
[2024-03-27] MEDS: fentaNYL citrate/PF 100 MCG/2 ML VIAL IVPUSH (15:32)
[2024-03-27] MEDS: propofoL 1,000 MG/100 ML VIAL 24.49 MG IVCONT ×2 (15:35→18:30)
--- NOTE | 2024-03-27 16:55 | W.PM.CCHP ---
Procedures Date of Service Date of Service: 03/27/24 Central Line Placement Left Femoral: Consent for Procedure: Emergent-no informed consent obtained Time out performed: Yes Sterile Technique Used: Yes Patient placed on monitor/pulse ox: Yes MD prep: mask, gown, gloves and other Central line prep: Chlorhexidine scrub and sterile drapes applied Ultrasound used for placement: Yes Complications: other (needle used to get into the L femoral vein with dark red blood return; wire threaded w/o difficulty; scapel used to knick superficial tissue; dilation performed, however unable to thread catheter; wire removed; pressure held for 10 minutes; no appreciable fluctuance, induration, hematoma)
--- NOTE | 2024-03-27 16:58 | W.PM.CCHP ---
Procedures Date of Service Date of Service: 03/27/24 Central Line Placement Left IJ: Consent for Procedure: Emergent-no informed consent obtained Time out performed: Yes Sterile Technique Used: Yes Patient placed on monitor/pulse ox: Yes MD prep: mask, gown and gloves Central line prep: Chlorhexidine scrub and sterile drapes applied Central line lumen inserted: triple Post procedure: sutured in place, good blood return, all ports aspirated, flushed, capped and sterile dressing applied Post procedure x-ray: other (awaiting chest x-ray) Patient tolerated procedure: well and no complications Complications: none
[2024-03-27] MEDS: Linezolid/D5W 600 MG/300 ML PIGGYBACK 300 MG IV (17:20)
[2024-03-27 18:34] LABS: Magnesium 2.4 mg/dL (1.6-2.6); Phosphorus 2.3 mg/dL (2.7-4.5)
[2024-03-27] MEDS: fentaNYL citrate/NS 1,000 MCG/100 ML PLAST..BAG 17.5 MCG IVCONT (18:36)
[2024-03-27 18:50] LABS: TSH reflex Free T4 0.27 uIU/mL (0.32-4.0)
--- NOTE | 2024-03-27 19:35 | PC.NURSE ---
Assumed care are 1400. Patient arrived from ED intubated and sedated. On Fentanyl and Versad drip. Patient continued to be restless and agitated. Propofol drip added. 100 mcg of Fentanyl and 4 mg Versad given prior to Central line insertion. Left IJ TLC. CXR completed. IV abx and KCL replacement given as ordered. Buck inserted. Vent AC 16 TV 300, Fio2 40%. Patient now resting calmly in bed. See assessment documentation for further information. Bed alarm on. Safety maintained.
[2024-03-27 20:12] LABS: Free T4 (Free Thyroxine) 1.22 ng/dL (0.71-1.85)
[2024-03-27 20:33] LABS: Anion Gap 13 (12-20); Blood Urea Nitrogen 15 mg/dL (9-16); Calcium 9.8 mg/dL (8.4-10.2); Carbon Dioxide 22 mmol/L (22-29); Chloride 111 mmol/L (96-108); Estimated Glomerular Filt Rate > 60; Glucose Random 121 mg/dL (60-115); Magnesium 2.5 mg/dL (1.6-2.6); Phosphorus 2.4 mg/dL (2.7-4.5); Potassium 3.3 mmol/L (3.3-5.1); Sodium 143 mmol/L (135-145)
[2024-03-27] MEDS: propofoL 1,000 MG/100 ML VIAL 19.6 MG IVCONT (21:21)
[2024-03-27] MEDS: Potassium Phosphate/NS 15 MMOL/250 ML PLAST..BAG 62.5 MMOL IV (21:22)
[2024-03-27] MEDS: Heparin Sodium,Porcine 5,000 UNIT/ML VIAL 5000 UNIT SUBCUT (21:49)
[2024-03-28] VITALS (36 sets, daily range): BP systolic 97–133; BP diastolic 46–73; PULSE 62–80; RESP 17–31; TEMP 34.9–37.6; O2SAT 91–99; BMI 35.1
[2024-03-28] MEDS: fentaNYL citrate/NS 1,000 MCG/100 ML PLAST..BAG 17.5 MCG IVCONT ×4 (00:27→16:49)
[2024-03-28] MEDS: Potassium Chloride Packet 20 MEQ PACKET 40 MEQ PO (00:29)
[2024-03-28] MEDS: Linezolid/D5W 600 MG/300 ML PIGGYBACK 300 MG IV ×3 (00:30→23:37)
[2024-03-28] MEDS: propofoL 1,000 MG/100 ML VIAL 19.6 MG IVCONT ×4 (01:37→15:27)
[2024-03-28] MEDS: Potassium Phosphate/NS 15 MMOL/250 ML PLAST..BAG 62.5 MMOL IV (01:41)
[2024-03-28] MEDS: Heparin Sodium,Porcine 5,000 UNIT/ML VIAL 5000 UNIT SUBCUT ×3 (03:58→20:01)
[2024-03-28] MEDS: Piperacillin Sodium/Tazobactam 3.375 GM in 0.9 % Sodium Chloride 50 ML IV ×3 (04:00→20:19)
[2024-03-28] MEDS: Midazolam HCl/NS 50 MG/50 ML PLAST..BAG IVCONT ×2 (05:32→18:07)
[2024-03-28 05:33] LABS: VBG HCO3 23 mmol/L (22-26); VBG pCO2 38 mmHg; VBG pH 7.39 (7.32-7.43); VBG pO2 51 mmHg
[2024-03-28 05:36] LABS: Venous Blood Gas Refer to POC result
[2024-03-28 06:07] LABS: MANUAL DIFF FLAG NO
[2024-03-28 06:13] LABS: Basophils Percent Auto 0.4 % (0-2); Eosinophils Absolute Auto 0.1 X10*3/uL (0.0-0.4); Eosinophils Percent Auto 1.4 % (0-4); Hematocrit 32.6 % (37.0-47.0); Hemoglobin 10.5 g/dl (12.0-16.0); Imm Gran Abs Auto 0.03 X10*3/uL (0.00-0.03); Imm Gran Pct Auto 0.4 % (0.0-0.4); Lymphocytes Absolute Auto 1.7 X10*3/uL (1.2-4.9); Lymphocytes Percent Auto 20.6 % (20-40); Mean Corpuscular HGB Conc 32.2 g/dl (31.0-35.0); Mean Corpuscular Hemoglobin 26.4 pg (27.0-33.0); Mean Corpuscular Volume 82.1 fL (80.0-98.0); Mean Platelet Volume 10.2 fL (9.4-12.3); Monocytes Absolute Auto 0.7 X10*3/uL (0.1-1.2); Monocytes Percent Auto 8.9 % (2-11); Neutrophils Absolute Auto 5.7 x10*3/uL (2.0-8.3); Neutrophils Percent Auto 68.3 % (45-73); Platelet Count 275 X10*3/uL (160-400); Red Blood Count 3.97 X10*6/uL (4.20-5.50); Red Cell Distribution Width 15.5 % (11.0-16.0); White Blood Count 8.3 X10*3/uL (4.8-10.8)
[2024-03-28 06:28] LABS: Anion Gap 13 (12-20); Blood Urea Nitrogen 10 mg/dL (9-16); Carbon Dioxide 21 mmol/L (22-29); Chloride 114 mmol/L (96-108); Creatinine Clr Calc Pharmacy 106.2; Estimated Glomerular Filt Rate > 60; Glucose Random 103 mg/dL (60-115); Magnesium 2.2 mg/dL (1.6-2.6); Phosphorus 3.3 mg/dL (2.7-4.5); Potassium 4.2 mmol/L (3.3-5.1); Sodium 144 mmol/L (135-145)
--- NOTE | 2024-03-28 07:58 | PM.CCPN ---
Subjective Subjective Date of Service: 03/28/24 Interval History: no significant overnight events; attempts to wean sedation unsuccessful d/t agitation Critical Care Time (minutes): 90 Physical Exam Vital Signs: Vital Signs: Last Vital Signs Temp 99.3 F 03/28/24 07:00 Pulse 63 03/28/24 07:00 Resp 21 H 03/28/24 07:00 BP 113/52 L 03/28/24 07:00 Pulse Ox 98 03/28/24 07:00 O2 Del Method Mechanical Ventil ation 03/28/24 07:00 O2 Flow Rate 35 03/27/24 16:00 FiO2 30 03/28/24 07:00 BMI result Body Mass Index 35.1 Const: Other: intubated, sedated, though intermittently agitated; does not follow commands General: no acute distress and well developed HEENT: Head: Yes normal to inspection, Yes normocephalic and Yes atraumatic Eyes: General: appearance normal, both eyes and all related structures Neck: Other: L IJ central line, clean, dry, intact Neck: Yes normal visual inspection, Yes full ROM, Yes trachea midline and Yes supple Chest: Chest palpation & inspection: normal inspection of the chest Resp: Other: mild wheezing; no appreciable rales, rhonchi Cardio: Rate: regular rate Rhythm: regular rhythm GI: Inspection: Yes normal to inspection, No Abdominal wall edema and No distended Palpation (GI): Soft to palpation, not firm, nontender, no guarding and not rigid Skin: General skin exam: no rashes or lesions noted Neuro: General: tone normal, moves all extremities and no focal motor deficits Extrem: General: Yes normal to inspection, Yes capillary refill normal and Yes no clubbing, cyanosis or edema Psych: Other: intermittent agitation despite sedation Appearance: disheveled Objective Data Labs 03/28/24 05:20 03/28/24 05:20 Labs: Laboratory Results - last 24 hr 03/27/24 03/27/24 03/27/24 05:29 09:16 09:31 WBC RBC Hgb Hct MCV MCH MCHC RDW Plt Count MPV Immature Gran % (Auto) Neut % (Auto) Lymph % (Auto) [place] % (Auto) Eos % (Auto) Baso % (Auto) Lymph # (Auto) [place] # (Auto) Eos # (Auto) Baso # (Auto) Abs Immat Gran (auto) Absolute Neuts (auto) Absolute Nucleated RBC Nucleated RBC % (auto) VBG pH VBG pCO2 VBG pO2 VBG HCO3 VBG O2 Saturation VBG Base Excess Sodium Potassium Chloride Carbon Dioxide Anion Gap BUN Creatinine Estim Creat Clear Calc Estimated GFR Random Glucose Lactic Acid 0.9 Calcium Phosphorus Magnesium 2.2 Total Creatine Kinase 850 H TSH Free T4 Beta HCG, Quant < 2 Urine Color Yellow Urine Appearance Clear Urine pH 6.0 Ur Specific [place] 1.025 Urine Protein 30 (1+) H Urine Glucose (UA) Negative Urine Ketones Negative Urine Blood Negative Urine Nitrite Negative Ur Leukocyte Esterase Negative Urine RBC 0-2 Urine WBC 0-5 Ur Squamous Epith Cells 6-10 Urine Bacteria None Seen Hyaline Casts 3-5 Urine Test NEGATIVE Urine Opiates Screen POSITIVE H Ur Buprenorphine Scrn Not Detected Ur Oxycodone Screen Not Detected Urine Methadone Screen Positive H Urine Fentanyl Screen POSITIVE H Ur Barbiturates Screen Not Detected Ur Phencyclidine Scrn Not Detected Ur Amphetamines Screen Not Detected U Benzodiazepines Scrn Not Detected Urine Cocaine Screen POSITIVE H U Marijuana (THC) Screen POSITIVE H 03/27/24 03/27/24 03/27/24 11:09 18:01 20:08 WBC RBC Hgb Hct MCV MCH MCHC RDW Plt Count MPV Immature Gran % (Auto) Neut % (Auto) Lymph % (Auto) [place] % (Auto) Eos % (Auto) Baso % (Auto) Lymph # (Auto) [place] # (Auto) Eos # (Auto) Baso # (Auto) Abs Immat Gran (auto) Absolute Neuts (auto) Absolute Nucleated RBC Nucleated RBC % (auto) VBG pH VBG pCO2 VBG pO2 VBG HCO3 VBG O2 Saturation VBG Base Excess Sodium 139 143 Potassium 3.4 3.3 Chloride 110 H 111 H Carbon Dioxide 21 L 22 Anion Gap 11 L 13 BUN 23 H 15 Creatinine 0.69 0.68 Estim Creat Clear Calc 101.5 103.0 Estimated GFR > 60 > 60 Random Glucose 106 121 H Lactic Acid Calcium 9.2 D 9.8 D Phosphorus 2.3 L 2.4 L Magnesium 2.4 2.5 Total Creatine Kinase TSH 0.27 L Free T4 1.22 Beta HCG, Quant Urine Color Urine Appearance Urine pH Ur Specific [place] Urine Protein Urine Glucose (UA) Urine Ketones Urine Blood Urine Nitrite Ur Leukocyte Esterase Urine RBC Urine WBC Ur Squamous Epith Cells Urine Bacteria Hyaline Casts Urine Test Urine Opiates Screen Ur Buprenorphine Scrn Ur Oxycodone Screen Urine Methadone Screen Urine Fentanyl Screen Ur Barbiturates Screen Ur Phencyclidine Scrn Ur Amphetamines Screen U Benzodiazepines Scrn Urine Cocaine Screen U Marijuana (THC) Screen 03/28/24 03/28/24 05:20 05:25 WBC 8.3 RBC 3.97 L Hgb 10.5 L Hct 32.6 L MCV 82.1 MCH 26.4 L MCHC 32.2 RDW 15.5 Plt Count 275 MPV 10.2 Immature Gran % (Auto) 0.4 Neut % (Auto) 68.3 Lymph % (Auto) 20.6 [place] % (Auto) 8.9 Eos % (Auto) 1.4 Baso % (Auto) 0.4 Lymph # (Auto) 1.7 [place] # (Auto) 0.7 Eos # (Auto) 0.1 Baso # (Auto) 0.0 Abs Immat Gran (auto) 0.03 Absolute Neuts (auto) 5.7 Absolute Nucleated RBC 0.000 Nucleated RBC % (auto) 0.0 VBG pH 7.39 VBG pCO2 38 VBG pO2 51 VBG HCO3 23 VBG O2 Saturation 83.0 VBG Base Excess -1.0 Sodium 144 Potassium 4.2 D Chloride 114 H Carbon Dioxide 21 L Anion Gap 13 BUN 10 Creatinine 0.66 Estim Creat Clear Calc 106.2 Estimated GFR > 60 Random Glucose 103 Lactic Acid Calcium 9.0 D Phosphorus 3.3 Magnesium 2.2 Total Creatine Kinase TSH Free T4 Beta HCG, Quant Urine Color Urine Appearance Urine pH Ur Specific [place] Urine Protein Urine Glucose (UA) Urine Ketones Urine Blood Urine Nitrite Ur Leukocyte Esterase Urine RBC Urine WBC Ur Squamous Epith Cells Urine Bacteria Hyaline Casts Urine Test Urine Opiates Screen Ur Buprenorphine Scrn Ur Oxycodone Screen Urine Methadone Screen Urine Fentanyl Screen Ur Barbiturates Screen Ur Phencyclidine Scrn Ur Amphetamines Screen U Benzodiazepines Scrn Urine Cocaine Screen U Marijuana (THC) Screen Progress Note: A&P Assessment and plan (1) Agitation: Status: Acute (2) Substance abuse: Status: Acute Plan Patient is a 43 Y F with hypertension, IV drug use, c/b MSSA bacteremia, osteomyelitis/discitis, p/w agitation in setting of substance misuse, found to be agitated in ED, intubated N: agitation; CT H reassuring; likely d/t substance misuse; intubated, propofol, midazolam gtt; wean as tolerated CV: hypotension, likely d/t sedation; norepinephrine gtt; wean as tolerated; QTc prolongation; judicious use of any QTc-prolonging agents R: intubated; wean as tolerated GI: NPO : no acute issues H: no acute issues ID: given history of bacteremia, osteomyelitis/discitis, empiric antibiotics, linezolid, zosyn; follow-up blood cultures E: no acute issues; to monitor glucose P: agitation, as described above; substance misuse Quality Stroke Does the patient have a stroke diagnosis?: No VTE Prior VTE?: No VTE Risk Level:: Medical - moderate - high VTE Device Contraindication: N/A - Device Ordered VTE Drug Contraindication: N/A - Med Ordered
[2024-03-28] MEDS: Chlorhexidine Gluc Oral Rinse 15 ML MOUTHWASH BUCCAL ×3 (08:35→20:01)
[2024-03-28] MEDS: Magnesium Sulfate/H2O 2 GM/50 ML PIGGYBACK IV (11:22)
--- NOTE | 2024-03-28 12:24 | ECG_ITS ---
Test Reason : prolonged QTc Blood Pressure : / mmHG Vent. Rate : 072 BPM Atrial Rate : 072 BPM P-R Int : 130 ms QRS Dur : 084 ms QT Int : 452 ms P-R-T Axes : 041 019 026 degrees QTc Int : 494 ms Normal sinus rhythm Prolonged QT Abnormal ECG No significant changes when compared with the previous EKG of 27 mar 2024 Referred By: Dara Bautista Electronically Signed By:WARNER GOMEZ
[2024-03-28 13:09] LABS: Magnesium 2.7 mg/dL (1.6-2.6); Phosphorus 2.5 mg/dL (2.7-4.5)
--- NOTE | 2024-03-28 14:12 | MHC.CM.PN ---
CM attempted to contact boyfriend/HCP to complete [employer], as patient is currently intubated/sedated. No answer, left message. Per chart review, patient was previously homeless, functionally independent and receiving methadone from [facility]. PCP listed is Kel Fox MD. CM will continue attempts to reach HCP.
[2024-03-28] MEDS: Norepinephrine Bitartrate/D5W 8 MG/250 ML PLAST..BAG 7.65 MG IV (15:27)
[2024-03-28] MEDS: Midazolam HCl/PF 2 MG/2 ML VIAL 4 MG IVPUSH ×2 (18:29→20:08)
[2024-03-28] MEDS: propofoL 1,000 MG/100 ML VIAL 9.8 MG IVCONT (19:49)
[2024-03-28] MEDS: fentaNYL citrate/NS 1,000 MCG/100 ML PLAST..BAG 20 MCG IVCONT (21:43)
[2024-03-29] VITALS (36 sets, daily range): BP systolic 89–148; BP diastolic 46–88; PULSE 52–79; RESP 15–23; TEMP 34.8–37.4; O2SAT 94–100; BMI 31.6
[2024-03-29] MEDS: Midazolam HCl/NS 50 MG/50 ML PLAST..BAG 6 MG IVCONT ×4 (00:27→21:49)
[2024-03-29 00:42] LABS: Magnesium 2.1 mg/dL (1.6-2.6); Phosphorus 2.3 mg/dL (2.7-4.5)
[2024-03-29] MEDS: fentaNYL citrate/NS 1,000 MCG/100 ML PLAST..BAG 20 MCG IVCONT ×5 (02:28→23:04)
[2024-03-29] MEDS: propofoL 1,000 MG/100 ML VIAL 14.7 MG IVCONT ×4 (02:30→21:48)
[2024-03-29] MEDS: Midazolam HCl/PF 2 MG/2 ML VIAL 4 MG IVPUSH ×7 (03:54→23:17)
[2024-03-29] MEDS: Heparin Sodium,Porcine 5,000 UNIT/ML VIAL 5000 UNIT SUBCUT ×3 (04:16→20:17)
[2024-03-29] MEDS: Piperacillin Sodium/Tazobactam 3.375 GM in 0.9 % Sodium Chloride 50 ML IV ×3 (04:16→20:15)
[2024-03-29 05:37] LABS: VBG HCO3 23 mmol/L (22-26); VBG pCO2 31 mmHg; VBG pH 7.48 (7.32-7.43); VBG pO2 55 mmHg
[2024-03-29 05:47] LABS: MANUAL DIFF FLAG NO
[2024-03-29 06:06] LABS: Albumin Level 3.3 g/dL (3.5-5.0); Anion Gap 14 (12-20); Blood Urea Nitrogen 6 mg/dL (9-16); Calcium 9.1 mg/dL (8.4-10.2); Carbon Dioxide 21 mmol/L (22-29); Chloride 112 mmol/L (96-108); Creatinine Clr Calc Pharmacy 110.2; Estimated Glomerular Filt Rate > 60; Glucose Random 90 mg/dL (60-115); Potassium 3.7 mmol/L (3.3-5.1); Sodium 143 mmol/L (135-145)
[2024-03-29 06:10] LABS: Venous Blood Gas Refer to POC result
[2024-03-29 06:27] LABS: Basophils Percent Auto 0.4 % (0-2); Eosinophils Absolute Auto 0.1 X10*3/uL (0.0-0.4); Eosinophils Percent Auto 1.4 % (0-4); Hematocrit 31.2 % (37.0-47.0); Hemoglobin 10.2 g/dl (12.0-16.0); Imm Gran Abs Auto 0.04 X10*3/uL (0.00-0.03); Imm Gran Pct Auto 0.6 % (0.0-0.4); Lymphocytes Percent Auto 27.1 % (20-40); Mean Corpuscular HGB Conc 32.7 g/dl (31.0-35.0); Mean Corpuscular Hemoglobin 27.1 pg (27.0-33.0); Mean Platelet Volume 10.4 fL (9.4-12.3); Monocytes Absolute Auto 0.6 X10*3/uL (0.1-1.2); Monocytes Percent Auto 8.2 % (2-11); Neutrophils Absolute Auto 4.5 x10*3/uL (2.0-8.3); Neutrophils Percent Auto 62.3 % (45-73); Platelet Count 251 X10*3/uL (160-400); Red Blood Count 3.76 X10*6/uL (4.20-5.50); Red Cell Distribution Width 15.9 % (11.0-16.0); White Blood Count 7.2 X10*3/uL (4.8-10.8)
[2024-03-29] MEDS: Chlorhexidine Gluc Oral Rinse 15 ML MOUTHWASH BUCCAL ×3 (07:51→20:17)
--- NOTE | 2024-03-29 08:10 | P.PNCC_ITS ---
Subjective Subjective Date of Service: 03/29/24 Interval History: no significant overnight events; attempt to wean sedation unsuccessful d/t agitation, which was unable to be re-directable Critical Care Time (minutes): 90 Physical Exam 2 Vital Signs: Vital Signs: Last Vital Signs Temp 98.6 F 03/29/24 08:00 Pulse 79 03/29/24 08:00 Resp 17 03/29/24 08:00 BP 123/69 03/29/24 08:00 Pulse Ox 100 03/29/24 08:00 O2 Del Method Mechanical Ventil ation 03/29/24 08:00 O2 Flow Rate 35 03/27/24 16:00 FiO2 30 03/29/24 08:00 BMI result Body Mass Index 31.6 Const: Other: intubated, sedated; appreciable agitation, which appears purposeful, attempts to grab endotracheal tube HEENT: Head: Yes normal to inspection, Yes normocephalic and Yes atraumatic Eyes: General: appearance normal, both eyes and all related structures Neck: Neck: Yes normal visual inspection, Yes full ROM, Yes trachea midline and Yes supple Chest: Chest palpation & inspection: normal inspection of the chest Resp: Other: no appreciable rales, rhonchi, wheezing Effort & Inspection: normal respiratory effort Cardio: Rate: regular rate Rhythm: regular rhythm GI: Inspection: Yes normal to inspection, No Abdominal wall edema and No distended Palpation (GI): Soft to palpation, not firm, nontender, no guarding and not rigid Skin: General skin exam: no rashes or lesions noted Neuro: General: tone normal, moves all extremities and no focal motor deficits Extrem: Other: 1+ pitting edema to bilateral knees General: Yes normal to inspection, Yes full ROM and Yes capillary refill normal Psych: Other: intermittent agitation despite sedation, as described above Appearance: disheveled Objective Data Labs 03/29/24 05:25 03/29/24 05:25 Labs: Laboratory Results - last 24 hr 03/28/24 03/29/24 03/29/24 12:25 00:15 05:25 WBC 7.2 RBC 3.76 L Hgb 10.2 L Hct 31.2 L MCV 83.0 MCH 27.1 MCHC 32.7 RDW 15.9 Plt Count 251 MPV 10.4 Immature Gran % (Auto) 0.6 H Neut % (Auto) 62.3 Lymph % (Auto) 27.1 [place] % (Auto) 8.2 Eos % (Auto) 1.4 Baso % (Auto) 0.4 Lymph # (Auto) 2.0 [place] # (Auto) 0.6 Eos # (Auto) 0.1 Baso # (Auto) 0.0 Abs Immat Gran (auto) 0.04 H Absolute Neuts (auto) 4.5 Absolute Nucleated RBC 0.000 Nucleated RBC % (auto) 0.0 VBG pH VBG pCO2 VBG pO2 VBG HCO3 VBG O2 Saturation VBG Base Excess Sodium 143 Potassium 3.7 Chloride 112 H Carbon Dioxide 21 L Anion Gap 14 BUN 6 L Creatinine 0.60 Estim Creat Clear Calc 110.2 Estimated GFR > 60 Random Glucose 90 Calcium 9.1 Phosphorus 2.5 L 2.3 L Magnesium 2.7 H 2.1 Albumin 3.3 L 03/29/24 05:29 WBC RBC Hgb Hct MCV MCH MCHC RDW Plt Count MPV Immature Gran % (Auto) Neut % (Auto) Lymph % (Auto) [place] % (Auto) Eos % (Auto) Baso % (Auto) Lymph # (Auto) [place] # (Auto) Eos # (Auto) Baso # (Auto) Abs Immat Gran (auto) Absolute Neuts (auto) Absolute Nucleated RBC Nucleated RBC % (auto) VBG pH 7.48 H VBG pCO2 31 VBG pO2 55 VBG HCO3 23 VBG O2 Saturation 90.0 VBG Base Excess 1.0 Sodium Potassium Chloride Carbon Dioxide Anion Gap BUN Creatinine Estim Creat Clear Calc Estimated GFR Random Glucose Calcium Phosphorus Magnesium Albumin Microbiology Microbiology Results: Microbiology 03/27/24 09:31 Blood - Venous Blood Culture - Preliminary No growth after 24 hours. 03/27/24 09:31 Blood - Venous Blood Culture - Preliminary No growth after 24 hours. Progress Note: A&P Assessment and plan (1) Agitation: Status: Acute (2) Substance abuse: Status: Acute Plan Patient is a 43 Y F with hypertension, IV drug use, c/b MSSA bacteremia, osteomyelitis/discitis, p/w agitation in setting of substance misuse, found to be agitated in ED, intubated N: agitation; CT H reassuring; likely d/t substance misuse; intubated, propofol, midazolam gtt; wean as tolerated CV: hypotension, likely d/t sedation; norepinephrine gtt; wean as tolerated; QTc prolongation; judicious use of any QTc-prolonging agents R: intubated; wean as tolerated GI: NPO : no acute issues H: no acute issues ID: given history of bacteremia, osteomyelitis/discitis, empiric antibiotics, linezolid, zosyn; follow-up blood cultures E: no acute issues; to monitor glucose P: agitation, as described above; substance misuse S: to continue to attempt contact with loved ones Quality Stroke Does the patient have a stroke diagnosis?: No VTE Prior VTE?: No VTE Risk Level:: Medical - moderate - high VTE Device Contraindication: N/A - Device Ordered VTE Drug Contraindication: N/A - Med Ordered
[2024-03-29] MEDS: Magnesium Sulfate/D5W 1 GM/100 ML PIGGYBACK IV (08:28)
[2024-03-29] MEDS: Potassium Phosphate/NS 15 MMOL/250 ML PLAST..BAG 62.5 MMOL IV (08:28)
[2024-03-29] MEDS: Albumin Human 25 % 50 ML 100 ML IV (09:17)
[2024-03-29] MEDS: Linezolid/D5W 600 MG/300 ML PIGGYBACK 300 MG IV (11:48)
[2024-03-29 12:33] LABS: Magnesium 2.2 mg/dL (1.6-2.6); Phosphorus 3.8 mg/dL (2.7-4.5)
[2024-03-29] MEDS: Furosemide 40 MG/4 ML VIAL IVPUSH (23:22)
[2024-03-30] VITALS (32 sets, daily range): BP systolic 103–158; BP diastolic 59–98; PULSE 51–76; RESP 11–21; TEMP 33.8–37; O2SAT 65–99; BMI 31.5
[2024-03-30] MEDS: Linezolid/D5W 600 MG/300 ML PIGGYBACK 300 MG IV ×3 (00:04→23:50)
[2024-03-30] MEDS: Midazolam HCl/PF 2 MG/2 ML VIAL 4 MG IVPUSH ×9 (00:17→23:46)
[2024-03-30] MEDS: fentaNYL citrate/NS 1,000 MCG/100 ML PLAST..BAG 20 MCG IVCONT ×5 (04:02→23:47)
[2024-03-30] MEDS: Heparin Sodium,Porcine 5,000 UNIT/ML VIAL 5000 UNIT SUBCUT ×3 (04:04→20:16)
[2024-03-30] MEDS: Piperacillin Sodium/Tazobactam 3.375 GM in 0.9 % Sodium Chloride 50 ML IV ×3 (04:05→20:16)
[2024-03-30] MEDS: propofoL 1,000 MG/100 ML VIAL 14.7 MG IVCONT ×2 (05:01→11:00)
[2024-03-30 06:03] LABS: VBG Base Excess 5.1 mmol/L; VBG HCO3 29 mmol/L (22-26); VBG pCO2 39 mmHg; VBG pH 7.47 (7.32-7.43); VBG pO2 50 mmHg
[2024-03-30 06:05] LABS: Venous Blood Gas Refer to POC result
[2024-03-30 06:08] LABS: MANUAL DIFF FLAG NO
[2024-03-30 06:09] LABS: Basophils Percent Auto 0.4 % (0-2); Eosinophils Absolute Auto 0.1 X10*3/uL (0.0-0.4); Eosinophils Percent Auto 2.3 % (0-4); Hematocrit 31.4 % (37.0-47.0); Hemoglobin 10.2 g/dl (12.0-16.0); Imm Gran Abs Auto 0.02 X10*3/uL (0.00-0.03); Imm Gran Pct Auto 0.4 % (0.0-0.4); Lymphocytes Absolute Auto 1.7 X10*3/uL (1.2-4.9); Lymphocytes Percent Auto 32.1 % (20-40); Mean Corpuscular HGB Conc 32.5 g/dl (31.0-35.0); Mean Corpuscular Hemoglobin 26.6 pg (27.0-33.0); Mean Platelet Volume 9.8 fL (9.4-12.3); Monocytes Absolute Auto 0.4 X10*3/uL (0.1-1.2); Neutrophils Percent Auto 57.8 % (45-73); Platelet Count 242 X10*3/uL (160-400); Red Blood Count 3.83 X10*6/uL (4.20-5.50); Red Cell Distribution Width 15.3 % (11.0-16.0); White Blood Count 5.2 X10*3/uL (4.8-10.8)
[2024-03-30 06:22] LABS: Alanine Aminotransferase 14 U/L (0-31); Albumin Level 3.6 g/dL (3.5-5.0); Alkaline Phosphatase 67 U/L (39-117); Anion Gap 16 (12-20); Aspartate Amino Transferase 20 U/L (5-31); Bilirubin Total 0.3 mg/dL (0.0-1.0); Blood Urea Nitrogen 6 mg/dL (9-16); Calcium 9.2 mg/dL (8.4-10.2); Carbon Dioxide 24 mmol/L (22-29); Chloride 107 mmol/L (96-108); Creatinine Clr Calc Pharmacy 101.7; Estimated Glomerular Filt Rate > 60; Glucose Random 80 mg/dL (60-115); Magnesium 1.9 mg/dL (1.6-2.6); Phosphorus 3.1 mg/dL (2.7-4.5); Potassium 3.4 mmol/L (3.3-5.1); Sodium 144 mmol/L (135-145); Total Protein 7.6 g/dL (6.5-8.0)
[2024-03-30] MEDS: Midazolam HCl/NS 50 MG/50 ML PLAST..BAG 6 MG IVCONT ×3 (06:24→22:21)
[2024-03-30] MEDS: Chlorhexidine Gluc Oral Rinse 15 ML MOUTHWASH BUCCAL ×3 (07:43→20:16)
--- NOTE | 2024-03-30 10:55 | P.PNCC_ITS ---
Subjective Subjective Date of Service: 03/30/24 Interval History: 43-year-old lady with underlying history of hypertension, polysubstance abuse including cocaine and heroin, hepatitis-C, prior MSSA bacteremia with osteomyelitis and diskitis admitted on 03/27/2024 with agitation secondary to polysubstance abuse requiring sedative drips and intubation for airway protection. No events overnight. Critical Care Time (minutes): 60 Physical Exam 2 Vital Signs: Vital Signs: Last Vital Signs Temp 98.4 F 03/30/24 10:00 Pulse 67 03/30/24 10:00 Resp 15 03/30/24 10:00 BP 154/84 H 03/30/24 10:00 Pulse Ox 97 03/30/24 10:00 O2 Del Method Mechanical Ventil ation 03/30/24 10:00 O2 Flow Rate 35 03/27/24 16:00 FiO2 30 03/30/24 10:00 BMI result Body Mass Index 31.5 Const: General: no acute distress and other (Sedated on the vent, agitated with sedation vacation) Eyes: Sclerae: sclerae normal EOM: EOMs intact bilaterally Neck: Neck: Yes no lymphadenopathy, Yes trachea midline and Yes supple Resp: Effort & Inspection: normal respiratory effort and no respiratory distress Auscultation: clear to auscultation bilaterally Cardio: Rate: regular rate Rhythm: regular rhythm Heart sounds: no gallops, no murmurs and no rubs GI: Palpation (GI): Soft to palpation and Other GI palpation findings present ( Nontender) Auscultation: normal bowel sounds Extrem: General: Yes no pedal edema, No clubbing and No cyanosis Objective Data Labs 03/30/24 05:57 03/30/24 05:57 Labs: Laboratory Results - last 24 hr 03/29/24 03/30/24 03/30/24 12:04 05:55 05:57 WBC 5.2 RBC 3.83 L Hgb 10.2 L Hct 31.4 L MCV 82.0 MCH 26.6 L MCHC 32.5 RDW 15.3 Plt Count 242 MPV 9.8 Immature Gran % (Auto) 0.4 Neut % (Auto) 57.8 Lymph % (Auto) 32.1 [place] % (Auto) 7.0 Eos % (Auto) 2.3 Baso % (Auto) 0.4 Lymph # (Auto) 1.7 [place] # (Auto) 0.4 Eos # (Auto) 0.1 Baso # (Auto) 0.0 Abs Immat Gran (auto) 0.02 Absolute Neuts (auto) 3.0 Absolute Nucleated RBC 0.000 Nucleated RBC % (auto) 0.0 VBG pH 7.47 H VBG pCO2 39 VBG pO2 50 VBG HCO3 29 H VBG O2 Saturation 84.0 VBG Base Excess 5.1 Sodium 144 Potassium 3.4 Chloride 107 Carbon Dioxide 24 Anion Gap 16 BUN 6 L Creatinine 0.65 Estim Creat Clear Calc 101.7 Estimated GFR > 60 Random Glucose 80 Calcium 9.2 Phosphorus 3.8 3.1 Magnesium 2.2 1.9 Total Bilirubin 0.3 AST 20 ALT 14 Alkaline Phosphatase 67 Total Protein 7.6 Albumin 3.6 Microbiology Microbiology Results: Microbiology 03/27/24 09:31 Blood - Venous Blood Culture - Preliminary Prelim: GNR Gram Stain only 03/27/24 09:31 Blood - Venous Blood Culture - Preliminary No growth after 48 hours. Progress Note: A&P Assessment and plan (1) Polysubstance abuse: Status: Acute (2) Acute respiratory failure: Status: Acute (3) Acute delirium: Status: Acute Plan Assessment: 83-year-old lady admitted with agitation secondary to polysubstance abuse requiring sedative drips and intubation for airway protection Plan: Neuro: Agitated delirium secondary to polysubstance abuse, continue to titrate off sedative drips as tolerated. Cardiac: No acute issues. Pulmonary: Intubated for airway protection, continue to titrate off ventilatory support as tolerated. Renal: No acute issues. Endo: No acute issues. GI: No acute issues. ID: On empiric broad-spectrum antibiotics for underlying history of prior MSSA bacteremia and diskitis. Cultures are pending. Heme/Onc: No acute issues. Psych: No acute issues. Miscellaneous: No acute issues. Prophylaxis: Heparin, ppi Diet: Tube feeds Critical care time spent: 60 minutes Quality Stroke Does the patient have a stroke diagnosis?: No VTE Prior VTE?: No VTE Risk Level:: Medical - moderate - high VTE Device Contraindication: N/A - Device Ordered VTE Drug Contraindication: N/A - Med Ordered
--- NOTE | 2024-03-30 12:24 | ECG_ITS ---
Test Reason : qtc check Blood Pressure : / mmHG Vent. Rate : 067 BPM Atrial Rate : 067 BPM P-R Int : 140 ms QRS Dur : 088 ms QT Int : 430 ms P-R-T Axes : 036 033 037 degrees QTc Int : 454 ms Normal sinus rhythm Normal ECG When compared with ECG of 28-MAR-2024 10:53, No significant change was found Referred By: Dara Bautista Electronically Signed By:Parmjit Rutledge
[2024-03-30] MEDS: propofoL 1,000 MG/100 ML VIAL 19.6 MG IVCONT ×2 (17:59→22:20)
[2024-03-31] VITALS (28 sets, daily range): BP systolic 106–177; BP diastolic 67–101; PULSE 50–92; RESP 13–24; TEMP 34.6–38; O2SAT 91–99; BMI 30.8; BMI 29.4
[2024-03-31 00:06] LABS: Glucose, Whole Blood 102 mg/dL (60-115)
[2024-03-31] MEDS: Midazolam HCl/PF 2 MG/2 ML VIAL 4 MG IVPUSH ×3 (03:06→07:52)
[2024-03-31] MEDS: propofoL 1,000 MG/100 ML VIAL 19.6 MG IVCONT (03:59)
[2024-03-31] MEDS: Heparin Sodium,Porcine 5,000 UNIT/ML VIAL 5000 UNIT SUBCUT ×3 (04:00→21:04)
[2024-03-31] MEDS: Piperacillin Sodium/Tazobactam 3.375 GM in 0.9 % Sodium Chloride 50 ML IV ×3 (04:01→21:04)
[2024-03-31] MEDS: fentaNYL citrate/NS 1,000 MCG/100 ML PLAST..BAG 20 MCG IVCONT (04:51)
[2024-03-31] MEDS: Midazolam HCl/NS 50 MG/50 ML PLAST..BAG 6 MG IVCONT (04:55)
[2024-03-31] MEDS: Omeprazole/Na Bicarb Oral Susp 20 MG/10 ML UD Cup 40 MG PO (05:47)
[2024-03-31 05:48] LABS: VBG Base Excess 6.1 mmol/L; VBG HCO3 29 mmol/L (22-26); VBG pCO2 37 mmHg; VBG pO2 75 mmHg
[2024-03-31 06:07] LABS: MANUAL DIFF FLAG NO
[2024-03-31 06:08] LABS: Basophils Percent Auto 0.5 % (0-2); Basophils Percent Auto 0.7 % (0-2); Eosinophils Absolute Auto 0.1 X10*3/uL (0.0-0.4); Eosinophils Percent Auto 2.7 % (0-4); Eosinophils Percent Auto 3.2 % (0-4); Hematocrit 30.9 % (37.0-47.0); Hemoglobin 10.1 g/dl (12.0-16.0); Imm Gran Abs Auto 0.01 X10*3/uL (0.00-0.03); Imm Gran Pct Auto 0.2 % (0.0-0.4); Lymphocytes Absolute Auto 1.6 X10*3/uL (1.2-4.9); Lymphocytes Percent Auto 35.6 % (20-40); Lymphocytes Percent Auto 37.1 % (20-40); Mean Corpuscular HGB Conc 32.4 g/dl (31.0-35.0); Mean Corpuscular HGB Conc 32.6 g/dl (31.0-35.0); Mean Corpuscular Hemoglobin 26.5 pg (27.0-33.0); Mean Corpuscular Hemoglobin 26.6 pg (27.0-33.0); Mean Corpuscular Volume 81.6 fL (80.0-98.0); Mean Corpuscular Volume 81.7 fL (80.0-98.0); Monocytes Absolute Auto 0.3 X10*3/uL (0.1-1.2); Monocytes Percent Auto 6.1 % (2-11); Monocytes Percent Auto 6.9 % (2-11); Neutrophils Absolute Auto 2.3 x10*3/uL (2.0-8.3); Neutrophils Absolute Auto 2.4 x10*3/uL (2.0-8.3); Neutrophils Percent Auto 52.4 % (45-73); Neutrophils Percent Auto 54.4 % (45-73); Platelet Count 231 X10*3/uL (160-400); Platelet Count 233 X10*3/uL (160-400); Red Blood Count 3.78 X10*6/uL (4.20-5.50); Red Cell Distribution Width 14.8 % (11.0-16.0); Red Cell Distribution Width 14.9 % (11.0-16.0); White Blood Count 4.4 X10*3/uL (4.8-10.8)
[2024-03-31 06:32] LABS: Albumin Level 3.4 g/dL (3.5-5.0); Anion Gap 15 (12-20); Blood Urea Nitrogen 9 mg/dL (9-16); Calcium 9.4 mg/dL (8.4-10.2); Carbon Dioxide 23 mmol/L (22-29); Chloride 106 mmol/L (96-108); Creatinine Clr Calc Pharmacy 102.9; Estimated Glomerular Filt Rate > 60; Glucose Random 105 mg/dL (60-115); Phosphorus 3.4 mg/dL (2.7-4.5); Potassium 3.3 mmol/L (3.3-5.1); Sodium 141 mmol/L (135-145)
[2024-03-31 06:44] LABS: Venous Blood Gas Refer to POC result
[2024-03-31] MEDS: Potassium Chloride/H20 40 MEQ/100 ML PIGGYBACK 50 MEQ IV (07:36)
[2024-03-31] MEDS: Chlorhexidine Gluc Oral Rinse 15 ML MOUTHWASH BUCCAL (07:37)
[2024-03-31] MEDS: Albumin Human 25 % 100 ML IV (07:37)
--- NOTE | 2024-03-31 08:02 | PM.CCPN ---
Subjective Subjective Date of Service: 03/31/24 Interval History: no significant overnight events Critical Care Time (minutes): 90 Physical Exam Vital Signs: Vital Signs: Last Vital Signs Temp 97.7 F 03/31/24 07:00 Pulse 52 03/31/24 07:00 Resp 16 03/31/24 07:00 BP 142/80 H 03/31/24 07:00 Pulse Ox 97 03/31/24 07:00 O2 Del Method Mechanical Ventil ation 03/31/24 07:00 O2 Flow Rate 35 03/27/24 16:00 FiO2 30 03/31/24 07:55 BMI result Body Mass Index 29.4 Const: Other: intubated, following commands, answering yes-no questions appropriately General: comfortable, well developed, alert, awake and Physically active; No no acute distress HEENT: Head: Yes normal to inspection, Yes normocephalic and Yes atraumatic Eyes: General: appearance normal, both eyes and all related structures Neck: Neck: Yes normal visual inspection, Yes full ROM, Yes no meningeal signs, Yes trachea midline and Yes supple Chest: Chest palpation & inspection: normal inspection of the chest Resp: Other: some appreciable rales, rhonchi; no appreciable wheezing Effort & Inspection: normal respiratory effort Cardio: Rate: regular rate Rhythm: regular rhythm GI: Inspection: Yes normal to inspection, No Abdominal wall edema and No distended Palpation (GI): Soft to palpation, not firm, nontender, no guarding and not rigid Skin: General skin exam: no rashes or lesions noted Neuro: General: tone normal, moves all extremities, no meningeal signs and no focal motor deficits Extrem: General: Yes normal to inspection, Yes full ROM, Yes capillary refill normal and Yes no clubbing, cyanosis or edema Psych: Other: intermittent agitation, though verbally redirectable Objective Data Labs 03/31/24 05:35 03/31/24 05:39 Labs: Laboratory Results - last 24 hr 03/31/24 03/31/24 03/31/24 00:03 05:35 05:35 WBC 4.4 L 4.4 L RBC 3.78 L Hgb Hct MCV MCH MCHC RDW Plt Count MPV Immature Gran % (Auto) Neut % (Auto) Lymph % (Auto) [place] % (Auto) Eos % (Auto) Baso % (Auto) Lymph # (Auto) [place] # (Auto) Eos # (Auto) Baso # (Auto) Abs Immat Gran (auto) Absolute Neuts (auto) Absolute Nucleated RBC Nucleated RBC % (auto) VBG pH VBG pCO2 VBG pO2 VBG HCO3 VBG O2 Saturation VBG Base Excess Sodium Potassium Chloride Carbon Dioxide Anion Gap BUN Creatinine Estim Creat Clear Calc Estimated GFR POC Glucose 102 Random Glucose Calcium Phosphorus Magnesium Albumin 03/31/24 03/31/24 03/31/24 05:35 05:35 05:35 WBC RBC 3.80 L Hgb 10.0 L 10.1 L Hct 30.9 L 31.0 L MCV 81.7 MCH MCHC RDW Plt Count MPV Immature Gran % (Auto) Neut % (Auto) Lymph % (Auto) [place] % (Auto) Eos % (Auto) Baso % (Auto) Lymph # (Auto) [place] # (Auto) Eos # (Auto) Baso # (Auto) Abs Immat Gran (auto) Absolute Neuts (auto) Absolute Nucleated RBC Nucleated RBC % (auto) VBG pH VBG pCO2 VBG pO2 VBG HCO3 VBG O2 Saturation VBG Base Excess Sodium Potassium Chloride Carbon Dioxide Anion Gap BUN Creatinine Estim Creat Clear Calc Estimated GFR POC Glucose Random Glucose Calcium Phosphorus Magnesium Albumin 03/31/24 03/31/24 03/31/24 05:35 05:35 05:35 WBC RBC Hgb Hct MCV 81.6 MCH 26.5 L 26.6 L MCHC 32.4 32.6 RDW 14.8 Plt Count MPV Immature Gran % (Auto) Neut % (Auto) Lymph % (Auto) [place] % (Auto) Eos % (Auto) Baso % (Auto) Lymph # (Auto) [place] # (Auto) Eos # (Auto) Baso # (Auto) Abs Immat Gran (auto) Absolute Neuts (auto) Absolute Nucleated RBC Nucleated RBC % (auto) VBG pH VBG pCO2 VBG pO2 VBG HCO3 VBG O2 Saturation VBG Base Excess Sodium Potassium Chloride Carbon Dioxide Anion Gap BUN Creatinine Estim Creat Clear Calc Estimated GFR POC Glucose Random Glucose Calcium Phosphorus Magnesium Albumin 03/31/24 03/31/24 03/31/24 05:35 05:35 05:35 WBC RBC Hgb Hct MCV MCH MCHC RDW 14.9 Plt Count 231 233 MPV 10.0 10.0 Immature Gran % (Auto) 0.2 Neut % (Auto) Lymph % (Auto) [place] % (Auto) Eos % (Auto) Baso % (Auto) Lymph # (Auto) [place] # (Auto) Eos # (Auto) Baso # (Auto) Abs Immat Gran (auto) Absolute Neuts (auto) Absolute Nucleated RBC Nucleated RBC % (auto) VBG pH VBG pCO2 VBG pO2 VBG HCO3 VBG O2 Saturation VBG Base Excess Sodium Potassium Chloride Carbon Dioxide Anion Gap BUN Creatinine Estim Creat Clear Calc Estimated GFR POC Glucose Random Glucose Calcium Phosphorus Magnesium Albumin 03/31/24 03/31/24 03/31/24 05:35 05:35 05:35 WBC RBC Hgb Hct MCV MCH MCHC RDW Plt Count MPV Immature Gran % (Auto) 0.2 Neut % (Auto) 52.4 54.4 Lymph % (Auto) 37.1 35.6 [place] % (Auto) 6.9 Eos % (Auto) Baso % (Auto) Lymph # (Auto) [place] # (Auto) Eos # (Auto) Baso # (Auto) Abs Immat Gran (auto) Absolute Neuts (auto) Absolute Nucleated RBC Nucleated RBC % (auto) VBG pH VBG pCO2 VBG pO2 VBG HCO3 VBG O2 Saturation VBG Base Excess Sodium Potassium Chloride Carbon Dioxide Anion Gap BUN Creatinine Estim Creat Clear Calc Estimated GFR POC Glucose Random Glucose Calcium Phosphorus Magnesium Albumin 03/31/24 03/31/24 03/31/24 05:35 05:35 05:35 WBC RBC Hgb Hct MCV MCH MCHC RDW Plt Count MPV Immature Gran % (Auto) Neut % (Auto) Lymph % (Auto) [place] % (Auto) 6.1 Eos % (Auto) 2.7 3.2 Baso % (Auto) 0.7 0.5 Lymph # (Auto) 1.6 [place] # (Auto) Eos # (Auto) Baso # (Auto) Abs Immat Gran (auto) Absolute Neuts (auto) Absolute Nucleated RBC Nucleated RBC % (auto) VBG pH VBG pCO2 VBG pO2 VBG HCO3 VBG O2 Saturation VBG Base Excess Sodium Potassium Chloride Carbon Dioxide Anion Gap BUN Creatinine Estim Creat Clear Calc Estimated GFR POC Glucose Random Glucose Calcium Phosphorus Magnesium Albumin 03/31/24 03/31/24 03/31/24 05:35 05:35 05:35 WBC RBC Hgb Hct MCV MCH MCHC RDW Plt Count MPV Immature Gran % (Auto) Neut % (Auto) Lymph % (Auto) [place] % (Auto) Eos % (Auto) Baso % (Auto) Lymph # (Auto) 1.6 [place] # (Auto) 0.3 0.3 Eos # (Auto) 0.1 0.1 Baso # (Auto) 0.0 Abs Immat Gran (auto) Absolute Neuts (auto) Absolute Nucleated RBC Nucleated RBC % (auto) VBG pH VBG pCO2 VBG pO2 VBG HCO3 VBG O2 Saturation VBG Base Excess Sodium Potassium Chloride Carbon Dioxide Anion Gap BUN Creatinine Estim Creat Clear Calc Estimated GFR POC Glucose Random Glucose Calcium Phosphorus Magnesium Albumin 03/31/24 03/31/24 03/31/24 05:35 05:35 05:35 WBC RBC Hgb Hct MCV MCH MCHC RDW Plt Count MPV Immature Gran % (Auto) Neut % (Auto) Lymph % (Auto) [place] % (Auto) Eos % (Auto) Baso % (Auto) Lymph # (Auto) [place] # (Auto) Eos # (Auto) Baso # (Auto) 0.0 Abs Immat Gran (auto) 0.01 0.01 Absolute Neuts (auto) 2.3 2.4 Absolute Nucleated RBC 0.000 Nucleated RBC % (auto) VBG pH VBG pCO2 VBG pO2 VBG HCO3 VBG O2 Saturation VBG Base Excess Sodium Potassium Chloride Carbon Dioxide Anion Gap BUN Creatinine Estim Creat Clear Calc Estimated GFR POC Glucose Random Glucose Calcium Phosphorus Magnesium Albumin 03/31/24 03/31/24 03/31/24 05:35 05:35 05:39 WBC RBC Hgb Hct MCV MCH MCHC RDW Plt Count MPV Immature Gran % (Auto) Neut % (Auto) Lymph % (Auto) [place] % (Auto) Eos % (Auto) Baso % (Auto) Lymph # (Auto) [place] # (Auto) Eos # (Auto) Baso # (Auto) Abs Immat Gran (auto) Absolute Neuts (auto) Absolute Nucleated RBC 0.000 Nucleated RBC % (auto) 0.0 0.0 VBG pH VBG pCO2 VBG pO2 VBG HCO3 VBG O2 Saturation VBG Base Excess Sodium 141 Potassium 3.3 Chloride 106 Carbon Dioxide 23 Anion Gap 15 BUN 9 Creatinine 0.62 Estim Creat Clear Calc 102.9 Estimated GFR > 60 POC Glucose Random Glucose 105 Calcium 9.4 Phosphorus 3.4 Magnesium 2.0 Albumin 3.4 L 03/31/24 05:40 WBC RBC Hgb Hct MCV MCH MCHC RDW Plt Count MPV Immature Gran % (Auto) Neut % (Auto) Lymph % (Auto) [place] % (Auto) Eos % (Auto) Baso % (Auto) Lymph # (Auto) [place] # (Auto) Eos # (Auto) Baso # (Auto) Abs Immat Gran (auto) Absolute Neuts (auto) Absolute Nucleated RBC Nucleated RBC % (auto) VBG pH 7.50 H VBG pCO2 37 VBG pO2 75 VBG HCO3 29 H VBG O2 Saturation 97.0 VBG Base Excess 6.1 Sodium Potassium Chloride Carbon Dioxide Anion Gap BUN Creatinine Estim Creat Clear Calc Estimated GFR POC Glucose Random Glucose Calcium Phosphorus Magnesium Albumin Microbiology Microbiology Results: Microbiology 03/27/24 09:31 Blood - Venous Blood Culture - Preliminary Prelim: GNR Gram Stain only 03/27/24 09:31 Blood - Venous Blood Culture - Preliminary No growth after 48 hours. Progress Note: A&P Assessment and plan (1) Acute respiratory failure: Status: Acute (2) Polysubstance abuse: Status: Acute Plan Patient is a 43 Y F with hypertension, IV drug use, c/b MSSA bacteremia, osteomyelitis/discitis, p/w agitation in setting of substance misuse, found to be agitated in ED, intubated N: agitation; CT H reassuring; likely d/t substance misuse; intubated, propofol, midazolam, fentanyl gtt; wean as tolerated CV: hypotension, likely d/t sedation; norepinephrine gtt; wean as tolerated; QTc prolongation; judicious use of any QTc-prolonging agents R: intubated; wean as tolerated GI: tube feeds : no acute issues H: no acute issues ID: given history of bacteremia, osteomyelitis/discitis, empiric antibiotics, linezolid, zosyn; follow-up blood cultures E: no acute issues; to monitor glucose P: agitation, as described above; substance misuse S: to continue to attempt contact with loved ones Quality Stroke Does the patient have a stroke diagnosis?: No VTE Prior VTE?: No VTE Risk Level:: Medical - moderate - high VTE Device Contraindication: N/A - Device Ordered VTE Drug Contraindication: N/A - Med Ordered
[2024-03-31] MEDS: propofoL 1,000 MG/100 ML VIAL 14.7 MG IVCONT (09:00)
--- NOTE | 2024-03-31 09:40 | MHC.CLN ---
F/U PT IS INTUBATED AND SEDATED PT RECEIVING TF; PROMOTE AT MAX GOAL RATE 50ML/HR PROVIDES 1200KCALS (23KCALS/KG), 75G PROTEIN (1.4G/KG), 1007ML FREE WATER FROM FORMULA MONITOR TOLERANCE, RESIDUALS AND LYTES
--- NOTE | 2024-03-31 11:34 | MHC.CM.PN ---
Addendum entered by Felisha Thorpe 03/31/24 15:55: Another call placed to D by CM: [facility] has a special unit who follows the [facility] unhoused population. The officers assigned to that unit will attempt to find pt's spouse/HCP and inform him of pt's location. Pt made aware by ICU staff and will stay for continued treatment. Original Note: Pt successfully extubated this am and is conversant. Pt states she and her significant other/HCP, Jason live [address] [place] [address] in [place] but stay with friends on occasion. Pt receives Methadone from [facility]. Pt very worried about Jason and requests CM contact [place] [employer] for information - Jason has not had any involvement w/D in several months per Records division and his contact information was out of service. Pt will see Care team once deemed medically stable for assistance with substance issues. [place] [address] brochure given to pt. Pt states she isn't certain on where she will stay once d/c'd but declined senior care list. I need to make sure Jason is ok CM to follow.
--- NOTE | 2024-03-31 12:24 | ECG_ITS ---
Test Reason : qtc check Blood Pressure : / mmHG Vent. Rate : 068 BPM Atrial Rate : 068 BPM P-R Int : 120 ms QRS Dur : 108 ms QT Int : 408 ms P-R-T Axes : 068 038 097 degrees QTc Int : 433 ms Sinus rhythm with Fusion complexes Possible Left atrial enlargement Pre-excitation noted ?WPW syndrome Nonspecific ST abnormality Abnormal ECG When compared with ECG of 30-MAR-2024 07:56, Pre-excitation present. Referred By: Dara Bautista Electronically Signed By:Parmjit Rutledge
[2024-03-31] MEDS: Linezolid/D5W 600 MG/300 ML PIGGYBACK 300 MG IV ×2 (13:08→23:56)
--- NOTE | 2024-03-31 16:25 | P.CDIM_ITS ---
PROVIDER RESPONSE TEXT: To clarify, the appropriate diagnosis supported by the clinical indicators: Other (explain): intubated for airway protection QUERY TEXT: PHYSICIAN'S DOCUMENTATION REQUEST Date of Query: 03/31/2024 12:08 PM EDT Patient Name: Norma Chiang Admit Date: 03/27/2024 Dear Dara Bautista MD, A review of the medical record indicates additional documentation may be needed. Please review below and update the documentation accordingly. Clinical indicators: ICU progress note dated 03/31 - Assessment and plan: Acute respiratory failure Intubated in the ED for agitation, thrashing, drug abuse IV Ativan Plan of progress note 03/31 Agitation; CT H reassuring; likely d/t substance misuse, intubated, propofo l, midazolam. fentanyl gtt; wean as tolerated Based on the above information, the diagnosis of Acute respiratory failure has been noted in the Ass essment and plan drop down list and was not included in the Plan area of the note: Acute respiratory failure After study respiratory failure has been ruled out Other (explain) Clinically unable to determine (explain) Thank you, Margarita Temple, CCS, CDIS Use of terms such as suspected, likely, concern for, or probable (associated with a specific diagnosi s that is being evaluated, monitored, or treated as if it exists) are acceptable and can be coded in the inpatient se tting, when documented at the time of discharge. Please use your independent medical judgment in providing your response. THIS QUERY IS PART OF THE PERMANENT MEDICAL RECORD
[2024-03-31] MEDS: oxyCODONE HCl ER 10 MG TAB.ER.12H 20 MG PO (17:26)
[2024-03-31] MEDS: Acetaminophen 325 MG TABLET 650 MG PO (21:05)
[2024-03-31] MEDS: QUEtiapine Fumarate 25 MG TABLET 75 MG PO (22:35)
[2024-03-31] MEDS: oxyCODONE HCl Immed Release 5 MG TABLET 20 MG PO (23:55)
[2024-04-01] VITALS (19 sets, daily range): BP systolic 114–150; BP diastolic 71–105; PULSE 69–89; RESP 15–28; TEMP 36.4–37.2; O2SAT 94–98; BMI 30.4
[2024-04-01] MEDS: hydrOXYzine HCL 25 MG TABLET PO ×3 (03:13→14:20)
[2024-04-01] MEDS: Heparin Sodium,Porcine 5,000 UNIT/ML VIAL 5000 UNIT SUBCUT ×3 (04:06→20:08)
[2024-04-01] MEDS: Piperacillin Sodium/Tazobactam 3.375 GM in 0.9 % Sodium Chloride 50 ML IV (04:07)
[2024-04-01 05:41] LABS: VBG Base Excess 1.9 mmol/L; VBG HCO3 25 mmol/L (22-26); VBG pCO2 34 mmHg; VBG pH 7.47 (7.32-7.43); VBG pO2 57 mmHg
[2024-04-01 05:47] LABS: MANUAL DIFF FLAG NO
[2024-04-01 05:49] LABS: Venous Blood Gas Refer to POC result
[2024-04-01 05:49] LABS: Basophils Percent Auto 0.3 % (0-2); Eosinophils Percent Auto 1.9 % (0-4); Hemoglobin 11.4 g/dl (12.0-16.0); Imm Gran Pct Auto 0.7 % (0.0-0.4); Lymphocytes Percent Auto 39.1 % (20-40); Mean Corpuscular HGB Conc 32.6 g/dl (31.0-35.0); Mean Corpuscular Hemoglobin 26.3 pg (27.0-33.0); Mean Corpuscular Volume 80.6 fL (80.0-98.0); Mean Platelet Volume 9.7 fL (9.4-12.3); Monocytes Percent Auto 8.6 % (2-11); Neutrophils Percent Auto 49.4 % (45-73); Platelet Count 239 X10*3/uL (160-400); Red Blood Count 4.34 X10*6/uL (4.20-5.50); Red Cell Distribution Width 14.7 % (11.0-16.0); White Blood Count 5.9 X10*3/uL (4.8-10.8)
[2024-04-01 05:50] LABS: Eosinophils Absolute Auto 0.1 X10*3/uL (0.0-0.4); Imm Gran Abs Auto 0.04 X10*3/uL (0.00-0.03); Lymphocytes Absolute Auto 2.3 X10*3/uL (1.2-4.9); Monocytes Absolute Auto 0.5 X10*3/uL (0.1-1.2); Neutrophils Absolute Auto 2.9 x10*3/uL (2.0-8.3)
[2024-04-01] MEDS: oxyCODONE HCl Immed Release 5 MG TABLET 20 MG PO (06:06)
[2024-04-01] MEDS: Omeprazole/Na Bicarb Oral Susp 20 MG/10 ML UD Cup 40 MG PO (06:06)
[2024-04-01 06:07] LABS: Albumin Level 4.3 g/dL (3.5-5.0); Anion Gap 17 (12-20); Blood Urea Nitrogen 5 mg/dL (9-16); Carbon Dioxide 23 mmol/L (22-29); Chloride 107 mmol/L (96-108); Creatinine Clr Calc Pharmacy 94.1; Estimated Glomerular Filt Rate > 60; Glucose Random 109 mg/dL (60-115); Magnesium 1.8 mg/dL (1.6-2.6); Phosphorus 3.3 mg/dL (2.7-4.5); Potassium 3.1 mmol/L (3.3-5.1); Sodium 144 mmol/L (135-145)
[2024-04-01] MEDS: Potassium Chloride ER 20 MEQ TAB.ER.PRT 40 MEQ PO (06:32)
[2024-04-01] MEDS: Baclofen 20 MG TABLET PO ×3 (09:07→20:08)
[2024-04-01] MEDS: cloNIDine HCL 0.1 MG TABLET PO ×2 (09:07→20:11)
[2024-04-01] MEDS: methADONE HCl 20 MG/2 ML ORAL.CONC 30 MG PO (09:07)
--- NOTE | 2024-04-01 09:19 | MHC.CM.PN ---
EMR REVIEWED, PER ICU ROUNDS PT TO TRANSFER TO MEDICAL FLOOR, CM WILL CONT TO FOLLOW DC NEEDS.
--- NOTE | 2024-04-01 09:33 | MHC.CLN ---
F/U PT EXTUBATED DIET ADVANCED TO REGULAR 25% PO INTAKE AT BREAKFAST PER NSG PT PENDING TRANSFER TO MEDICAL FLOOR RD TO FOLLOW WEEKLY
--- NOTE | 2024-04-01 09:37 | P.PNCC_ITS ---
Subjective Subjective Date of Service: 04/01/24 Interval History: 43-year-old lady with underlying history of hypertension, polysubstance abuse including cocaine and heroin, hepatitis-C, prior MSSA bacteremia with osteomyelitis and diskitis admitted on 03/27/2024 with agitation secondary to polysubstance abuse requiring sedative drips and intubation for airway protection. Extubated 03/31/2024. No events overnight. Critical Care Time (minutes): 0 Physical Exam 2 Vital Signs: Vital Signs: Last Vital Signs Temp 98.5 F 04/01/24 08:00 Pulse 80 04/01/24 09:00 Resp 25 H 04/01/24 09:00 BP 129/90 H 04/01/24 09:07 Pulse Ox 98 04/01/24 08:00 O2 Del Method Room Air 04/01/24 08:00 O2 Flow Rate 2 03/31/24 11:00 FiO2 96 03/31/24 18:00 BMI result Body Mass Index 30.4 Const: General: no acute distress, alert and awake Eyes: Sclerae: sclerae normal EOM: EOMs intact bilaterally Neck: Neck: Yes no lymphadenopathy, Yes trachea midline and Yes supple Resp: Effort & Inspection: normal respiratory effort and no respiratory distress Auscultation: clear to auscultation bilaterally Cardio: Rate: regular rate Rhythm: regular rhythm Heart sounds: no gallops, no murmurs and no rubs GI: Palpation (GI): Soft to palpation and Other GI palpation findings present ( Nontender) Auscultation: normal bowel sounds Extrem: General: Yes no pedal edema, No clubbing and No cyanosis Objective Data Labs 04/01/24 05:36 04/01/24 05:36 Labs: Laboratory Results - last 24 hr 04/01/24 04/01/24 05:33 05:36 WBC 5.9 RBC 4.34 Hgb 11.4 L Hct 35.0 L MCV 80.6 MCH 26.3 L MCHC 32.6 RDW 14.7 Plt Count 239 MPV 9.7 Immature Gran % (Auto) 0.7 H Neut % (Auto) 49.4 Lymph % (Auto) 39.1 [place] % (Auto) 8.6 Eos % (Auto) 1.9 Baso % (Auto) 0.3 Lymph # (Auto) 2.3 [place] # (Auto) 0.5 Eos # (Auto) 0.1 Baso # (Auto) 0.0 Abs Immat Gran (auto) 0.04 H Absolute Neuts (auto) 2.9 Absolute Nucleated RBC 0.000 Nucleated RBC % (auto) 0.0 VBG pH 7.47 H VBG pCO2 34 VBG pO2 57 VBG HCO3 25 VBG O2 Saturation 89.0 VBG Base Excess 1.9 Sodium 144 Potassium 3.1 L Chloride 107 Carbon Dioxide 23 Anion Gap 17 BUN 5 L Creatinine 0.69 Estim Creat Clear Calc 94.1 Estimated GFR > 60 Random Glucose 109 Calcium 10.0 D Phosphorus 3.3 Magnesium 1.8 Albumin 4.3 Microbiology Microbiology Results: Microbiology 03/27/24 09:31 Blood - Venous Blood Culture - Preliminary Prelim: GNR Gram Stain only 03/27/24 09:31 Blood - Venous Blood Culture - Preliminary No growth after 48 hours. Progress Note: A&P Assessment and plan (1) Polysubstance abuse: Status: Acute (2) Anxiety: Status: Acute Plan Assessment: 83-year-old lady admitted with agitation secondary to polysubstance abuse requiring sedative drips and intubation for airway protection Plan: Neuro: Agitated delirium secondary to polysubstance abuse, improved significantly, titrated off sedative drips. Restarting home regimen of quetiapine, baclofen, clonidine. Substance abuse team consultation is pending. Cardiac: No acute issues. Pulmonary: Intubated for airway protection, continue to titrate off ventilatory support as tolerated. Extubated 03/31/2024. Renal: No acute issues. Endo: No acute issues. GI: No acute issues. ID: Cultures negative to date. Will monitor off antibiotics. Heme/Onc: No acute issues. Psych: No acute issues. Miscellaneous: No acute issues. Prophylaxis: Heparin, ppi Diet: Regular Quality Stroke Does the patient have a stroke diagnosis?: No VTE Prior VTE?: No VTE Risk Level:: Medical - moderate - high VTE Device Contraindication: N/A - Device Ordered VTE Drug Contraindication: N/A - Med Ordered
[2024-04-01] MEDS: Ketorolac Tromethamine 15 MG/ML VIAL IVPUSH (10:07)
[2024-04-01] MEDS: methADONE HCl 20 MG/2 ML ORAL.CONC 10 MG PO (10:07)
--- NOTE | 2024-04-01 14:16 | MHC.RECOVRN ---
Met with pt to follow up after additional 10 mg methadone this morning and comfort medications. Pt laying in bed, restless. Pt reports restlessness has not subsided, reports stomach is in knots, feeling hot/cold, and states my whole body hurts. Pt denies other questions or concerns at this time. Savita Quintanilla APRN, aware.
[2024-04-01] MEDS: Pregabalin 200 MG CAPSULE PO ×2 (14:19→20:09)
--- NOTE | 2024-04-01 14:43 | PC.NURSE ---
Assumed care of patient [address] message sent to addiction consult [employer] regarding methadone dose for pt. 08:00-09:00 pt had increased restlessness and anxiety. prn Atarax 25 mg PO given. 09:00 Pt has increased signs of withdrawal: nausea + vomiting, frequent loose stools, restlessness, hot/cold feelings Pt given one time 30mg dose methadone. Pt states minimal relief. Savita Quintanilla [employer] to bedside to see pt. 10 mg methadone additional dose given plus Toradol 15 mg IVP. Pt states relief of symptoms, able to rest with eyes closed. Pt transferred to [place] at 12:30PM. High fall and safety interventions in place.
--- NOTE | 2024-04-01 15:10 | HO.ADDICTCON ---
History of Present Illness Date of Service: 04/01/2024 Chief Complaint: Agitation Reason for Consult: OUD-withdrawal management Sources of Information: patient interviewed (briefly) and chart reviewed HPI Narrative: Patient medically admitted following ED visit where she required sedation and ultimately intubation related to worsening agitation-likely due to cocaine use. Patient is known to this loan underwriter and [facility] previous admissions and outpatient care. History of opioid use and cocaine use Today, patient seen in ICU with porcelain slusher. She is awake, alert and visibly uncomfortable --moaning,unable to stay still in bed. Prior to seeing patient, she had received methadone 30mg. --she had been vomiting and c/o body aches and restlessness She reports that nausea has subsided, but still experiencing stomach discomfort/pain. Additional 10mg methadone and toradol 15mg ordered for patient with +effect RN reports she was still restless, but was not calling out any longer. porcelain slusher checked on patient later in the day and she was reporting body aches and stomach knots Medical Evaluation Reviewed: Yes Review of Systems Constitutional: Reports as per HPI Diagnostics Vital Signs (24Hr): Vital Signs - 24 hr 03/31/24 16:00 03/31/24 17:00 03/31/24 18:00 Temperature 100.2 F 100.4 F 100.4 F Pulse Rate 53 67 75 Respiratory Rate 16 20 18 Blood Pressure 167/85 H 167/85 H 145/68 H Pulse Oximetry 94 96 96 Oxygen Delivery Method Room Air Room Air Mechanical Ventilation Fraction of Inspired Oxygen 96 03/31/24 19:00 03/31/24 20:00 03/31/24 21:00 Temperature 100.2 F 100.2 F 98.4 F Pulse Rate 84 75 92 Respiratory Rate 23 H 13 20 Blood Pressure 138/76 153/93 H 118/67 Pulse Oximetry 93 94 95 Oxygen Delivery Method Room Air Room Air Room Air Fraction of Inspired Oxygen 03/31/24 22:00 03/31/24 23:00 04/01/24 00:00 Temperature 98.3 F Pulse Rate 80 90 87 Respiratory Rate 21 H 22 H 28 H Blood Pressure 142/81 H 138/101 H 138/101 H Pulse Oximetry 94 95 98 Oxygen Delivery Method Room Air Room Air Room Air Fraction of Inspired Oxygen 04/01/24 01:00 04/01/24 02:00 04/01/24 03:00 Temperature Pulse Rate 73 82 89 Respiratory Rate 15 24 H 24 H Blood Pressure 150/105 H 119/74 118/89 Pulse Oximetry 96 95 97 Oxygen Delivery Method Room Air Room Air Room Air Fraction of Inspired Oxygen 04/01/24 04:00 04/01/24 05:00 04/01/24 06:00 Temperature 98.5 F Pulse Rate 76 72 79 Respiratory Rate 22 H 17 27 H Blood Pressure Pulse Oximetry 97 Oxygen Delivery Method Room Air Room Air Room Air Fraction of Inspired Oxygen 04/01/24 07:00 04/01/24 08:00 04/01/24 09:00 Temperature 98.5 F Pulse Rate 82 78 80 Respiratory Rate 18 16 25 H Blood Pressure 129/90 H Pulse Oximetry 98 Oxygen Delivery Method Room Air Fraction of Inspired Oxygen 04/01/24 09:07 04/01/24 10:00 04/01/24 11:00 Temperature Pulse Rate 80 70 Respiratory Rate 25 H 23 H Blood Pressure 129/90 H Pulse Oximetry Oxygen Delivery Method Fraction of Inspired Oxygen 04/01/24 12:46 04/01/24 13:00 Temperature 98.9 F Pulse Rate 80 72 Respiratory Rate 20 18 Blood Pressure 114/71 122/88 Pulse Oximetry 98 97 Oxygen Delivery Method Room Air Room Air Fraction of Inspired Oxygen BMI result Body Mass Index 30.4 Labs 04/02/24 05:47 04/02/24 05:47 Labs: Laboratory Results - last 48 hr 03/31/24 03/31/24 03/31/24 00:03 05:35 05:35 WBC 4.4 L 4.4 L RBC 3.78 L Hgb Hct MCV MCH MCHC RDW Plt Count MPV Immature Gran % (Auto) Neut % (Auto) Lymph % (Auto) Cavalier % (Auto) Eos % (Auto) Baso % (Auto) Lymph # (Auto) Cavalier # (Auto) Eos # (Auto) Baso # (Auto) Abs Immat Gran (auto) Absolute Neuts (auto) Absolute Nucleated RBC Nucleated RBC % (auto) VBG pH VBG pCO2 VBG pO2 VBG HCO3 VBG O2 Saturation VBG Base Excess Sodium Potassium Chloride Carbon Dioxide Anion Gap BUN Creatinine Estim Creat Clear Calc Estimated GFR POC Glucose 102 Random Glucose Calcium Phosphorus Magnesium Albumin 03/31/24 03/31/24 03/31/24 05:35 05:35 05:35 WBC RBC 3.80 L Hgb 10.0 L 10.1 L Hct 30.9 L 31.0 L MCV 81.7 MCH MCHC RDW Plt Count MPV Immature Gran % (Auto) Neut % (Auto) Lymph % (Auto) Cavalier % (Auto) Eos % (Auto) Baso % (Auto) Lymph # (Auto) Cavalier # (Auto) Eos # (Auto) Baso # (Auto) Abs Immat Gran (auto) Absolute Neuts (auto) Absolute Nucleated RBC Nucleated RBC % (auto) VBG pH VBG pCO2 VBG pO2 VBG HCO3 VBG O2 Saturation VBG Base Excess Sodium Potassium Chloride Carbon Dioxide Anion Gap BUN Creatinine Estim Creat Clear Calc Estimated GFR POC Glucose Random Glucose Calcium Phosphorus Magnesium Albumin 03/31/24 03/31/24 03/31/24 05:35 05:35 05:35 WBC RBC Hgb Hct MCV 81.6 MCH 26.5 L 26.6 L MCHC 32.4 32.6 RDW 14.8 Plt Count MPV Immature Gran % (Auto) Neut % (Auto) Lymph % (Auto) Cavalier % (Auto) Eos % (Auto) Baso % (Auto) Lymph # (Auto) Cavalier # (Auto) Eos # (Auto) Baso # (Auto) Abs Immat Gran (auto) Absolute Neuts (auto) Absolute Nucleated RBC Nucleated RBC % (auto) VBG pH VBG pCO2 VBG pO2 VBG HCO3 VBG O2 Saturation VBG Base Excess Sodium Potassium Chloride Carbon Dioxide Anion Gap BUN Creatinine Estim Creat Clear Calc Estimated GFR POC Glucose Random Glucose Calcium Phosphorus Magnesium Albumin 03/31/24 03/31/24 03/31/24 05:35 05:35 05:35 WBC RBC Hgb Hct MCV MCH MCHC RDW 14.9 Plt Count 231 233 MPV 10.0 10.0 Immature Gran % (Auto) 0.2 Neut % (Auto) Lymph % (Auto) Cavalier % (Auto) Eos % (Auto) Baso % (Auto) Lymph # (Auto) Cavalier # (Auto) Eos # (Auto) Baso # (Auto) Abs Immat Gran (auto) Absolute Neuts (auto) Absolute Nucleated RBC Nucleated RBC % (auto) VBG pH VBG pCO2 VBG pO2 VBG HCO3 VBG O2 Saturation VBG Base Excess Sodium Potassium Chloride Carbon Dioxide Anion Gap BUN Creatinine Estim Creat Clear Calc Estimated GFR POC Glucose Random Glucose Calcium Phosphorus Magnesium Albumin 03/31/24 03/31/24 03/31/24 05:35 05:35 05:35 WBC RBC Hgb Hct MCV MCH MCHC RDW Plt Count MPV Immature Gran % (Auto) 0.2 Neut % (Auto) 52.4 54.4 Lymph % (Auto) 37.1 35.6 Cavalier % (Auto) 6.9 Eos % (Auto) Baso % (Auto) Lymph # (Auto) Cavalier # (Auto) Eos # (Auto) Baso # (Auto) Abs Immat Gran (auto) Absolute Neuts (auto) Absolute Nucleated RBC Nucleated RBC % (auto) VBG pH VBG pCO2 VBG pO2 VBG HCO3 VBG O2 Saturation VBG Base Excess Sodium Potassium Chloride Carbon Dioxide Anion Gap BUN Creatinine Estim Creat Clear Calc Estimated GFR POC Glucose Random Glucose Calcium Phosphorus Magnesium Albumin 03/31/24 03/31/24 03/31/24 05:35 05:35 05:35 WBC RBC Hgb Hct MCV MCH MCHC RDW Plt Count MPV Immature Gran % (Auto) Neut % (Auto) Lymph % (Auto) Cavalier % (Auto) 6.1 Eos % (Auto) 2.7 3.2 Baso % (Auto) 0.7 0.5 Lymph # (Auto) 1.6 Cavalier # (Auto) Eos # (Auto) Baso # (Auto) Abs Immat Gran (auto) Absolute Neuts (auto) Absolute Nucleated RBC Nucleated RBC % (auto) VBG pH VBG pCO2 VBG pO2 VBG HCO3 VBG O2 Saturation VBG Base Excess Sodium Potassium Chloride Carbon Dioxide Anion Gap BUN Creatinine Estim Creat Clear Calc Estimated GFR POC Glucose Random Glucose Calcium Phosphorus Magnesium Albumin 03/31/24 03/31/24 03/31/24 05:35 05:35 05:35 WBC RBC Hgb Hct MCV MCH MCHC RDW Plt Count MPV Immature Gran % (Auto) Neut % (Auto) Lymph % (Auto) Cavalier % (Auto) Eos % (Auto) Baso % (Auto) Lymph # (Auto) 1.6 Cavalier # (Auto) 0.3 0.3 Eos # (Auto) 0.1 0.1 Baso # (Auto) 0.0 Abs Immat Gran (auto) Absolute Neuts (auto) Absolute Nucleated RBC Nucleated RBC % (auto) VBG pH VBG pCO2 VBG pO2 VBG HCO3 VBG O2 Saturation VBG Base Excess Sodium Potassium Chloride Carbon Dioxide Anion Gap BUN Creatinine Estim Creat Clear Calc Estimated GFR POC Glucose Random Glucose Calcium Phosphorus Magnesium Albumin 03/31/24 03/31/24 03/31/24 05:35 05:35 05:35 WBC RBC Hgb Hct MCV MCH MCHC RDW Plt Count MPV Immature Gran % (Auto) Neut % (Auto) Lymph % (Auto) Cavalier % (Auto) Eos % (Auto) Baso % (Auto) Lymph # (Auto) Cavalier # (Auto) Eos # (Auto) Baso # (Auto) 0.0 Abs Immat Gran (auto) 0.01 0.01 Absolute Neuts (auto) 2.3 2.4 Absolute Nucleated RBC 0.000 Nucleated RBC % (auto) VBG pH VBG pCO2 VBG pO2 VBG HCO3 VBG O2 Saturation VBG Base Excess Sodium Potassium Chloride Carbon Dioxide Anion Gap BUN Creatinine Estim Creat Clear Calc Estimated GFR POC Glucose Random Glucose Calcium Phosphorus Magnesium Albumin 03/31/24 03/31/24 03/31/24 05:35 05:35 05:39 WBC RBC Hgb Hct MCV MCH MCHC RDW Plt Count MPV Immature Gran % (Auto) Neut % (Auto) Lymph % (Auto) Cavalier % (Auto) Eos % (Auto) Baso % (Auto) Lymph # (Auto) Cavalier # (Auto) Eos # (Auto) Baso # (Auto) Abs Immat Gran (auto) Absolute Neuts (auto) Absolute Nucleated RBC 0.000 Nucleated RBC % (auto) 0.0 0.0 VBG pH VBG pCO2 VBG pO2 VBG HCO3 VBG O2 Saturation VBG Base Excess Sodium 141 Potassium 3.3 Chloride 106 Carbon Dioxide 23 Anion Gap 15 BUN 9 Creatinine 0.62 Estim Creat Clear Calc 102.9 Estimated GFR > 60 POC Glucose Random Glucose 105 Calcium 9.4 Phosphorus 3.4 Magnesium 2.0 Albumin 3.4 L 03/31/24 04/01/24 04/01/24 05:40 05:33 05:36 WBC 5.9 RBC 4.34 Hgb 11.4 L Hct 35.0 L MCV 80.6 MCH 26.3 L MCHC 32.6 RDW 14.7 Plt Count 239 MPV 9.7 Immature Gran % (Auto) 0.7 H Neut % (Auto) 49.4 Lymph % (Auto) 39.1 Cavalier % (Auto) 8.6 Eos % (Auto) 1.9 Baso % (Auto) 0.3 Lymph # (Auto) 2.3 Cavalier # (Auto) 0.5 Eos # (Auto) 0.1 Baso # (Auto) 0.0 Abs Immat Gran (auto) 0.04 H Absolute Neuts (auto) 2.9 Absolute Nucleated RBC 0.000 Nucleated RBC % (auto) 0.0 VBG pH 7.50 H 7.47 H VBG pCO2 37 34 VBG pO2 75 57 VBG HCO3 29 H 25 VBG O2 Saturation 97.0 89.0 VBG Base Excess 6.1 1.9 Sodium 144 Potassium 3.1 L Chloride 107 Carbon Dioxide 23 Anion Gap 17 BUN 5 L Creatinine 0.69 Estim Creat Clear Calc 94.1 Estimated GFR > 60 POC Glucose Random Glucose 109 Calcium 10.0 D Phosphorus 3.3 Magnesium 1.8 Albumin 4.3 Imaging Radiology Impressions: ITS Impressions Chest CT 03/27/24 09:14 IMPRESSION: 1. Focal pleural thickening and increased soft tissue in the right paravertebral region adjacent to the surgical hardware, greatest at T7-T8. This is decreased in size from November 2023 exam. 2. Changes from old discitis/osteomyelitis from T6 to T8 with bone loss and destruction of the inferior endplate of the T7 vertebral body does not appear appreciably changed from November 2023 exam. Posterior fusion hardware from T11 to T3 appears unchanged. 3. Enlarged heart. Fleischner guidelines were followed. Head CT 03/27/24 09:14 IMPRESSION: No evidence of acute intracranial hemorrhage or edematous territorial infarction. Chest X-Ray 03/27/24 13:24 IMPRESSION: Satisfactory position of endotracheal and nasogastric tubes. Chest X-Ray 03/27/24 17:49 IMPRESSION: There is a new left internal jugular vein catheter terminating at the cavoatrial junction. There is no pneumothorax. Chest X-Ray 03/27/24 21:30 IMPRESSION: 1. ET tube terminates 5 cm from the kike. 2. Left IJ central venous catheter tip terminates in the SVC. 3. Low lung volumes. No acute pulmonary findings. Mental Status Exam Mental Status Exam Level of Consciousness: Awake and Restless Medications Medications Current Medications Al Hydroxide/Mg Hydroxide (Magnesium Hydrox/Alum Hydrox 30 Ml Oral.Susp) 30 ml PO Q6H PRN PRN Reason: stomach upset Baclofen (Baclofen 20 Mg Tablet) 20 mg PO TID [facility] Last Admin: 04/01/24 14:19 Dose: 20 mg Clonidine HCl (Clonidine Hcl 0.1 Mg Tablet) 0.1 mg PO BID [facility]; Protocol Last Admin: 04/01/24 09:07 Dose: 0.1 mg Escitalopram Oxalate (Escitalopram Oxalate 10 Mg Tablet) 10 mg PO DAILY [facility] Folic Acid (Folic Acid 1 Mg Tablet) 1 mg PO DAILY [facility] Heparin Sodium (Porcine) (Heparin Sodium,Porcine 5,000 Unit/Ml Vial) 5,000 unit SUBCUT Q8H [facility] Last Admin: 04/01/24 11:50 Dose: 5,000 unit Hydralazine HCl (Hydralazine Hcl 20 Mg/Ml Vial) 10 mg IVPUSH Q4H PRN; Protocol PRN Reason: Hypertension Hydroxyzine HCl (Hydroxyzine Hcl 25 Mg Tablet) 25 mg PO Q6H PRN PRN Reason: anxiety/restlessness Last Admin: 04/01/24 14:20 Dose: 25 mg Methadone HCl (Methadone Hcl 20 Mg/2 Ml Oral.Conc) 50 mg PO DAILY@0600 [facility] Naloxone HCl (Naloxone Hcl 0.4 Mg/Ml Vial) 0.2 mg IVPUSH Q2M PRN PRN Reason: Excessive sedation or RR < 8 Omeprazole (Omeprazole/Na Bicarb Oral Susp 20 Mg/10 Ml Ud Cup) 40 mg PO DAILY@0630 [facility] Last Admin: 04/01/24 06:06 Dose: 40 mg Oxycodone HCl (Oxycodone Hcl Immed Release 5 Mg Tablet) 10 mg PO Q4H PRN PRN Reason: Opiate Withdrawal Pregabalin (Pregabalin 200 Mg Capsule) 200 mg PO TID [facility] Last Admin: 04/01/24 14:19 Dose: 200 mg Quetiapine Fumarate (Quetiapine Fumarate 50 Mg Tablet) 50 mg PO BEDTIME [facility] Allergies Allergies Allergy/AdvReac Type Severity Reaction Status Date / Time No Known Allergies Allergy Verified 03/27/24 04:12 Assessment & Plan Assessment & Plan (1) Opioid use disorder: Status: Acute Code(s): F11.90 - Opioid use, unspecified, uncomplicated Assessment and Plan: continue to assess and adjust methadone and anxiety medications as needed Total time managing care of this patient today ____ minutes. [facility] Past Medical History Medical History (Updated 04/10/24 @ 00:03 by Tenzin Vazquez) Opioid use disorder Bacteremia Polysubstance use disorder Hepatitis C antibody positive in blood Cocaine abuse Heroin abuse PTSD (post-traumatic stress disorder) Depression Anxiety Opiate abuse, continuous Social History Social History Household Members: Unknown / Unable to assess Housing: Unknown / Unable to assess Do you presently have visiting nurse or other home services: No Alcohol intake: never Comment: 1:1 sitter Patient Tobacco Use Status: Tobacco use Unknown Tobacco use type: Cigarette Cigarette Packs Per Day: 1 Cigarettes Per Day: 20.0 Years Smoked: 30 Second Hand Smoke Exposure: Yes Substance Use Type: Heroin Advance Directives Date on File: 10/03/23 service: No
[2024-04-01] MEDS: oxyCODONE HCl Immed Release 5 MG TABLET 10 MG PO ×2 (15:17→20:09)
[2024-04-01] MEDS: QUEtiapine Fumarate 50 MG TABLET PO (20:09)
[2024-04-02 03:27] VITALS: BP 117/70; PULSE 78; RESP 18; TEMP 36.9; O2SAT 94
[2024-04-02 06:00] VITALS: BMI 31.6
[2024-04-02 06:00] LABS: MANUAL DIFF FLAG NO
[2024-04-02 06:05] LABS: Basophils Percent Auto 0.5 % (0-2); Eosinophils Absolute Auto 0.2 X10*3/uL (0.0-0.4); Eosinophils Percent Auto 2.4 % (0-4); Hematocrit 38.1 % (37.0-47.0); Hemoglobin 12.2 g/dl (12.0-16.0); Imm Gran Abs Auto 0.03 X10*3/uL (0.00-0.03); Imm Gran Pct Auto 0.5 % (0.0-0.4); Lymphocytes Absolute Auto 2.4 X10*3/uL (1.2-4.9); Lymphocytes Percent Auto 38.4 % (20-40); Mean Corpuscular Hemoglobin 26.1 pg (27.0-33.0); Mean Corpuscular Volume 81.6 fL (80.0-98.0); Mean Platelet Volume 9.4 fL (9.4-12.3); Monocytes Absolute Auto 0.5 X10*3/uL (0.1-1.2); Monocytes Percent Auto 7.8 % (2-11); Neutrophils Absolute Auto 3.2 x10*3/uL (2.0-8.3); Neutrophils Percent Auto 50.4 % (45-73); Platelet Count 240 X10*3/uL (160-400); Red Blood Count 4.67 X10*6/uL (4.20-5.50); Red Cell Distribution Width 15.1 % (11.0-16.0); White Blood Count 6.3 X10*3/uL (4.8-10.8)
[2024-04-02 06:18] LABS: Anion Gap 15 (12-20); Blood Urea Nitrogen 16 mg/dL (9-16); Calcium 9.7 mg/dL (8.4-10.2); Carbon Dioxide 24 mmol/L (22-29); Chloride 107 mmol/L (96-108); Creatinine Clr Calc Pharmacy 87.7; Estimated Glomerular Filt Rate > 60; Glucose Random 135 mg/dL (60-115); Phosphorus 3.9 mg/dL (2.7-4.5); Potassium 3.5 mmol/L (3.3-5.1); Sodium 142 mmol/L (135-145)
[2024-04-02] MEDS: methADONE HCl 20 MG/2 ML ORAL.CONC 50 MG PO (06:29)
[2024-04-02] MEDS: Omeprazole/Na Bicarb Oral Susp 20 MG/10 ML UD Cup 40 MG PO (06:30)
[2024-04-02] MEDS: Heparin Sodium,Porcine 5,000 UNIT/ML VIAL 5000 UNIT SUBCUT (06:33)
[2024-04-02 07:47] VITALS: BP 112/72; PULSE 78; RESP 18; TEMP 36.8; O2SAT 94
[2024-04-02] MEDS: Baclofen 20 MG TABLET PO (07:56)
[2024-04-02] MEDS: cloNIDine HCL 0.1 MG TABLET PO (07:56)
[2024-04-02] MEDS: Pregabalin 200 MG CAPSULE PO (07:56)
[2024-04-02] MEDS: oxyCODONE HCl Immed Release 5 MG TABLET 10 MG PO (07:56)
[2024-04-02] MEDS: Escitalopram Oxalate 10 MG TABLET PO (07:56)
[2024-04-02] MEDS: Folic Acid 1 MG TABLET PO (07:56)
--- NOTE | 2024-04-02 09:18 | P.DS_ITS ---
DS: Providers Provider Date of Service: 04/02/24 Date of admission: 03/27/24 12:02 Primary care physician: Kel Fox MD Consults: 04/01/24 05:45 Addiction Medicine Stat Consulting Provider: Addiction Covering Reason for consultation: acute delerium/substance abuse Has provider been notified: No DS: Diagnosis Discharge Diagnosis (1) Opioid use disorder: Status: Acute DS: Summary Hospital Course Hospital Course: from initial hpi: 43 Y F with hypertension, intravenous drug use, c/b prior MSSA bacteremia, osteomyelitis/discitis, initially presenting to emergency department on 03/26 found outside, erratic behavior, in setting of suspected cocaine and heroin use; in emergency department, work-up grossly reassuring, though found to be positive for polysubstances, including methadone, as well as prolonged QTc; in emergency department, patient intermittently agitated, intubated hospital course: Patient was admitted for agitated delirium/ acute toxic metabolic encephalopathy secondary to polysubstance abuse complicated by acute hypoxic respiratory failure requiring intubation and ICU admission. Empirically put on IV antibiotics due to hypotension, however hypotension felt to be due to sedation, 1/2 blood cultures growing anaerobic Gram-negative rods, discussed with ID, unlikely pathogen antibiotics were discontinued. Patient was eventually extubated on 03/31/2024 and did well. She was restarted on methadone for opiate dependence with withdrawal. Overall she is feeling better will be discharged home to continue to follow-up with addiction management in community. Time Attestation Discharge Coordination Time (in mins): 35 Quality: Safe Use of Opioids Does Pt have an Active Cancer Diagnosis on the Problem List?: No Quality: Stroke Does the patient have a stroke diagnosis?: No Physical Exam Vital Signs: Vital Signs: Last Vital Signs Temp 98.2 F 04/02/24 07:47 Pulse 78 04/02/24 07:47 Resp 18 04/02/24 07:47 BP 112/72 04/02/24 07:47 Pulse Ox 94 04/02/24 07:47 O2 Del Method Room Air 04/02/24 07:47 O2 Flow Rate 2 03/31/24 11:00 FiO2 96 03/31/24 18:00 BMI result Body Mass Index 31.6 General: AO X 3, no acute distress Resp: CTA bilateral, no accessory muscles used CVS: S1,S2,RRR GI: soft, non tender, non distended Neuro: motor grossly intact, alert Psych: appropriate affect, appropriate insight DS: Data Data Completed and Pending Completed studies during hospitalization [Text1]: Procedures Drainage of Spinal Canal, Percutaneous Approach (09/19/23) Fluoroscopy of Spinal Cord (09/19/23) Insertion of Infusion Device into Lower Vein, Percutaneous Approach (11/02/23) Insertion of Infusion Device into Superior Vena Cava, Percutaneous Approach (09/19/23) Ultrasonography of Superior Vena Cava, Guidance (09/19/23) Labs on day of discharge: Laboratory Results - last 24 hr 04/02/24 05:47 WBC 6.3 RBC 4.67 Hgb 12.2 Hct 38.1 MCV 81.6 MCH 26.1 L MCHC 32.0 RDW 15.1 Plt Count 240 MPV 9.4 Immature Gran % (Auto) 0.5 H Neut % (Auto) 50.4 Lymph % (Auto) 38.4 Davidson % (Auto) 7.8 Eos % (Auto) 2.4 Baso % (Auto) 0.5 Lymph # (Auto) 2.4 [place] # (Auto) 0.5 Eos # (Auto) 0.2 Baso # (Auto) 0.0 Abs Immat Gran (auto) 0.03 Absolute Neuts (auto) 3.2 Absolute Nucleated RBC 0.000 Nucleated RBC % (auto) 0.0 Sodium 142 Potassium 3.5 Chloride 107 Carbon Dioxide 24 Anion Gap 15 BUN 16 Creatinine 0.74 Estim Creat Clear Calc 87.7 Estimated GFR > 60 Random Glucose 135 H Calcium 9.7 Phosphorus 3.9 Magnesium 2.0 Preliminary micro results at discharge 03/27/24 09:31 Blood Culture - Preliminary Blood - Venous Anaerobic gram negative rods Discharge Plan Discharge Anticipated Discharge Date/Time: 04/02/24 09:15 Patient Disposition: Home, Self-Care Discharge Diagnosis: acute delerium, toxic encephalopathy Referrals: Kel Fox MD [Primary Care Provider] - 1 Week Discharge Medications: Continued clonidine HCl 0.1 mg tablet 0.1 mg PO BID ondansetron HCl 4 mg tablet 8 mg PO BID quetiapine 100 mg tablet 100 mg PO BEDTIME baclofen 20 mg tablet 20 mg PO TID pantoprazole 40 mg tablet,delayed release (DR/EC) 40 mg PO BID folic acid 1 mg tablet 1 mg PO DAILY escitalopram oxalate 10 mg tablet 10 mg PO DAILY lactulose 10 gram/15 mL solution 30 ml PO TID pregabalin 200 mg capsule 200 mg PO TID ramelteon [Rozerem] 8 mg tablet 8 mg PO BEDTIME quetiapine 50 mg tablet 50 mg PO BEDTIME Discharge Orders: Discharge Order (Routine); Ordered 04/02/24 Ordered By: Shashank Lazo Diet: Advance to usual diet Activity on Discharge: As tolerated Stand Alone Forms: Patient Portal Discharge page Print Language: Ivorian Care Plan Goals: recovery Health Concerns: polysubstance dependence Plan of Treatment: methadone clinic Assessment: see above
--- NOTE | 2024-04-02 11:07 | MHC.RECOVRN ---
Pts referral sent to [facility]. Plan for pt to present 04/03.
--- NOTE | 2024-04-02 11:13 | MHC.CM.PN ---
pt medically cleared for dc, cm met w/pt and provided pt w/2bus passes, pt aware staff will bring her to security for her belongings
--- NOTE | 2024-04-02 12:24 | ECG_ITS ---
Test Reason : od Blood Pressure : / mmHG Vent. Rate : 081 BPM Atrial Rate : 081 BPM P-R Int : 124 ms QRS Dur : 084 ms QT Int : 388 ms P-R-T Axes : 033 023 028 degrees QTc Int : 450 ms Normal sinus rhythm Normal ECG When compared with ECG of 31-MAR-2024 09:33, Fusion complexes are no longer Present Incomplete left bundle branch block is no longer Present Referred By: Dara Bautista Electronically Signed By:Parmjit Rutledge
== END 2024-04-02 12:31 | disposition home or self-care (01) | DRG 773 ==
LOC: HO.ED 11:00 → HO.EDOVER 12:59 → HO.ICU 13:51 → HO.IMC 04-01 11:47
PROVIDERS: Emergency Medicine; Internal Medicine Pulmonary Disease; Nurse Practitioner Family; Registered Nurse Community Health; Admitting Provider Internal Medicine Critical Care Medicine; Emergency Provider Emergency Medicine; Visit Provider Internal Medicine
DX: F11.221 Opioid dependence with intoxication delirium (principal); G92.8 Other toxic encephalopathy; I95.2 Hypotension due to drugs; E87.6 Hypokalemia; I10 Essential (primary) hypertension; F14.10 Cocaine abuse, uncomplicated; F19.10 Other psychoactive substance abuse, uncomplicated; F41.9 Anxiety disorder, unspecified; R94.31 Abnormal electrocardiogram [ECG] [EKG]; T42.75XA Adverse effect of unspecified antiepileptic and sedative-hypnotic drugs, initial encounter; F17.210 Nicotine dependence, cigarettes, uncomplicated; Z71.6 Tobacco abuse counseling; Z20.822 Contact with and (suspected) exposure to COVID-19; Z79.899 Other long term (current) drug therapy
CPT/HCPCS: 0241U; 36415; 70450; 71045; 71250; 80048; 80053; 80076; 80307; 81001; 81025; 82040; 82550; 82803; 82947; 83605; 83690; 83735; 83880; 84100; 84439; 84443; 84484; 84702; 85025; 87040; 87076; 87205; 93005; 94002; 94003; 94799; 99285; C1758; J0696; J1200; J1630; J1644; J1885; J1940; J2020; J2060; J2250; J2251; J2543; J2704; J3010; J3475; J3480; P9047

== ENCOUNTER → 2024-03-27 04:17 | Outpatient (BNV) | payer OTHER, SELFPAY | PROVIDERS: Admitting Provider Internal Medicine Critical Care Medicine; Emergency Provider Emergency Medicine; PCP Internal Medicine; Visit Provider Internal Medicine | DX: I45.81 Long QT syndrome (principal); R00.0 Tachycardia, unspecified | CPT/HCPCS: 93010 ==

== ENCOUNTER 2024-03-27 12:02 | Outpatient (BNV) | payer OTHER, SELFPAY | END 2024-03-31 12:24 | PROVIDERS: Admitting Provider Internal Medicine Critical Care Medicine; Emergency Provider Emergency Medicine; PCP Internal Medicine; Visit Provider Internal Medicine Cardiovascular Disease | DX: I45.6 Pre-excitation syndrome (principal) | CPT/HCPCS: 93010 ==

== ENCOUNTER 2024-03-27 12:02 | Outpatient (BNV) | payer OTHER, SELFPAY | END 2024-04-02 12:24 | PROVIDERS: Admitting Provider Internal Medicine Critical Care Medicine; Emergency Provider Emergency Medicine; PCP Internal Medicine; Visit Provider Internal Medicine Cardiovascular Disease | DX: T50.901A Poisoning by unspecified drugs, medicaments and biological substances, accidental (unintentional), initial encounter (principal) | CPT/HCPCS: 93010 ==

== ENCOUNTER 2024-03-27 12:02 | Outpatient (BNV) | payer OTHER, SELFPAY | END 2024-03-28 12:24 | PROVIDERS: Admitting Provider Internal Medicine Critical Care Medicine; Emergency Provider Emergency Medicine; PCP Internal Medicine; Visit Provider Internal Medicine | DX: I45.81 Long QT syndrome (principal) | CPT/HCPCS: 93010 ==

== ENCOUNTER 2024-03-27 12:02 | Outpatient (BNV) | payer OTHER, SELFPAY | END 2024-03-30 12:24 | PROVIDERS: Admitting Provider Internal Medicine Critical Care Medicine; Emergency Provider Emergency Medicine; PCP Internal Medicine; Visit Provider Internal Medicine Cardiovascular Disease | DX: Z51.81 Encounter for therapeutic drug level monitoring (principal) | CPT/HCPCS: 93010 ==

== ENCOUNTER → 2024-03-27 12:02 | Outpatient (BNV) | payer OTHER, SELFPAY | PROVIDERS: Admitting Provider Internal Medicine Critical Care Medicine; Emergency Provider Emergency Medicine; PCP Internal Medicine; Visit Provider Internal Medicine Critical Care Medicine | DX: F19.10 Other psychoactive substance abuse, uncomplicated (principal); R45.1 Restlessness and agitation; E87.6 Hypokalemia | CPT/HCPCS: 36556; 99223; 99291; 99292 ==

== ENCOUNTER → 2024-03-27 12:02 | Outpatient (BNV) | payer OTHER, SELFPAY | PROVIDERS: Admitting Provider Internal Medicine Critical Care Medicine; Emergency Provider Emergency Medicine; PCP Internal Medicine; Visit Provider Internal Medicine Pulmonary Disease | DX: F19.10 Other psychoactive substance abuse, uncomplicated (principal); F41.9 Anxiety disorder, unspecified | CPT/HCPCS: 99232; 99291 ==

== ENCOUNTER → 2024-03-27 12:02 | Outpatient (BNV) | payer OTHER, SELFPAY | PROVIDERS: Admitting Provider Internal Medicine Critical Care Medicine; Emergency Provider Emergency Medicine; PCP Internal Medicine; Visit Provider Internal Medicine | DX: F11.90 Opioid use, unspecified, uncomplicated (principal) | CPT/HCPCS: 99239 ==

== ENCOUNTER → 2024-03-27 12:02 | Outpatient (BNV) | payer OTHER, SELFPAY | PROVIDERS: Admitting Provider Internal Medicine Critical Care Medicine; Emergency Provider Emergency Medicine; Visit Provider Nurse Practitioner Psychiatric/Mental Health | DX: F11.93 Opioid use, unspecified with withdrawal (principal) | CPT/HCPCS: 99221 ==

== ENCOUNTER 2024-11-22 16:39 | Emergency (ER) | payer OTHER, SELFPAY ==
[2024-11-22 16:52] VITALS: BP 136/94; PULSE 76; RESP 16; TEMP 36.1; O2SAT 98; BMI 24.9
--- NOTE | 2024-11-22 16:53 | ED.GENADULT ---
HPI - General Adult General Chief complaint: General Medical Stated complaint: missed methadone dose Time Seen by Provider: 11/22/24 17:27 Source: patient Mode of arrival: ambulatory Limitations: no limitations History of Present Illness ED Provider: KRISTEN FERRERA PA-C HPI narrative: 44-year-old female with past medical history significant for PTSD, anxiety, depression, hepatitis-C, polysubstance abuse on methadone presents to the ED today requesting methadone dose. She was typically dosed with 120 mg at [facility] in [place] however was unable to make it to the clinic today before the clinic closed. She states her last dose was yesterday. She does not have a last dose letter. Denies any illicit substance use. Denies EtOH consumption. Denies any physical complaints at present. Related Data Home Medications ?Medication ?Instructions ?Recorded ?Confirmed baclofen 20 mg tablet 20 mg PO TID 03/27/24 03/27/24 clonidine HCl 0.1 mg tablet 0.1 mg PO BID 03/27/24 03/27/24 escitalopram oxalate 10 mg tablet 10 mg PO DAILY 03/27/24 03/27/24 folic acid 1 mg tablet 1 mg PO DAILY 03/27/24 03/27/24 lactulose 10 gram/15 mL oral 30 ml PO TID 03/27/24 03/27/24 solution ondansetron HCl 4 mg tablet 8 mg PO BID 03/27/24 03/27/24 pantoprazole 40 mg tablet,delayed 40 mg PO BID 03/27/24 03/27/24 release pregabalin 200 mg capsule 200 mg PO TID 03/27/24 03/27/24 quetiapine 100 mg tablet 100 mg PO BEDTIME 03/27/24 03/27/24 quetiapine 50 mg tablet 50 mg PO BEDTIME 03/27/24 03/27/24 ramelteon 8 mg tablet (Rozerem) 8 mg PO BEDTIME 03/27/24 03/27/24 Allergies Allergy/AdvReac Type Severity Reaction Status Date / Time No Known Allergies Allergy Verified 11/22/24 16:53 Review of Systems Review of Systems: Yes all other systems are reviewed and are negative PMFSH Past Medical History Attestation statement: The following information was validated with the patient. Source: old records reviewed and nursing notes reviewed Medical History (Updated 11/22/24 @ 17:30 by RAGHAV Cuellar) Opioid use disorder Bacteremia Polysubstance use disorder Hepatitis C antibody positive in blood Cocaine abuse Heroin abuse PTSD (post-traumatic stress disorder) Depression Anxiety Opiate abuse, continuous Social History Social History Household Members: Unknown / Unable to assess Housing: Unknown / Unable to assess Do you presently have visiting nurse or other home services: No Alcohol intake: never Comment: 1:1 sitter Patient Tobacco Use Status: Tobacco use Unknown Tobacco use type: Cigarette Cigarette Packs Per Day: 1 Cigarettes Per Day: 20.0 Years Smoked: 30 Second Hand Smoke Exposure: Yes Substance Use Type: Heroin Advance Directives Date on File: 10/03/23 Do you have a plan to hurt others: No Plan service: No Physical Exam ED Vital Signs: Vital Signs - 24 hr 11/22/24 16:52 Temperature 97.0 F Pulse Rate 76 Respiratory Rate 16 Blood Pressure 136/94 H Pulse Oximetry 98 Oxygen Delivery Method Room Air BMI result Body Mass Index 24.9 Patient was hypertensive, vitals otherwise WNL General: in no acute distress Skin: Warm, dry, intact. No rashes or lesions. Head: Normocephalic, atraumatic. EENT: Hearing is intact b/l. Conjunctiva clear. PERRLA. EOM intact. Moist mucous membranes.? Cardiac: Chest wall symmetric. RRR Lungs: Normal respiratory effort without accessory muscle use Abdomen: Soft, non-tender, non-distended Back: No midline spinous or paraspinal tenderness. No step off deformity. Ext: Upper and lower extremities atraumatic, without tenderness, deformity, swelling or erythema Neuro: AOx3. Normal speech. Ambulating with steady gait. Psych: Appropriate mood and affect. Responds appropriately to questions. Course Course Course Narrative: This is a Rapid Medical Examination (RME) performed by Mitesh Ferrera PA-C in triage. Full HPI, ROS, assessment and treatment plan per primary provider in the Main ED. 44 yo female here requesting methadone dose. she was unable to make it to her clinic to be dosed before they closed. her dose is 120mg. her last dose was yesterday. she does not have a last dose letter. no physical complaints at present. Plan: confirm dose, administer dose Reevaluation(s) Reevaluation #1: BRITTANY Pearl contacted [facility] methadone clinic and spoke w/ Latoya who confirmed dose of 120mg, last given yesterday. 120 mg methadone ordered and administered in ED today. patient tolerated well. advised to f/u w/ clinic for further doses. Patient has remained stable throughout ED visit today. Discussed worrisome signs and symptoms and when to return to the ED. All questions answered at this time. Patient is agreeable with disposition and stable for discharge. Medical Decision Making Medical Decision Making MDM Narrative: 44-year-old female with past medical history significant for PTSD, anxiety, depression, hepatitis-C, polysubstance abuse on methadone presents to the ED today requesting methadone dose. Patient is hypertensive, vitals otherwise WNL. She is nontoxic-appearing and in no acute distress. Physical exam benign. No signs of acute withdrawal. Differential diagnosis includes polysubstance abuse, methadone dependence, withdrawal Plan to contact [facility] clinic to confirm dose. Differential Diagnosis Differential Diagnoses: The differential diagnosis associated with the presentation includes As above Admission/Observation Not indicated External Record Review External record reviewed: Inpatient record Chronic Conditions Patient?s care impacted by: Other (Polysubstance abuse, methadone dependence) Social Determinants Patient?s care significantly limited by Social Determinants of Health including: Alcoholism and drug addiction in family and Other Social Determinant of Health Critical Care Time Critical Care Time Critical Care Time: No Discharge Plan Discharge Clinical Impression: Methadone dependence Patient Disposition: Home, Self-Care Instructions: Methadone (By mouth), Opioid Use Disorder (ED) Additional Instructions: You were seen in the emergency department for methadone dosing. We called and verified your last dose, which is methadone 120 mg, which was last given 11/21/2024. We had given you methadone 120 mg in the department today. Please follow-up with your methadone clinic tomorrow for additional dosing. If any new or worsening symptoms occur, including but not limited to chest pain or shortness a breath, please return for re-evaluation. Prescriptions: No Action clonidine HCl 0.1 mg tablet 0.1 mg PO BID ondansetron HCl 4 mg tablet 8 mg PO BID quetiapine 100 mg tablet 100 mg PO BEDTIME baclofen 20 mg tablet 20 mg PO TID pantoprazole 40 mg tablet,delayed release (DR/EC) 40 mg PO BID folic acid 1 mg tablet 1 mg PO DAILY escitalopram oxalate 10 mg tablet 10 mg PO DAILY lactulose 10 gram/15 mL solution 30 ml PO TID pregabalin 200 mg capsule 200 mg PO TID ramelteon [Rozerem] 8 mg tablet 8 mg PO BEDTIME quetiapine 50 mg tablet 50 mg PO BEDTIME Print Language: [place] Islander
--- NOTE | 2024-11-22 17:20 | PC.NURSE ---
verified methadone does with BRITTANY Klein at [facility]. Pt was last dosed with 120mg on 11/21/29 at 0934- verification faxed to pharmacy- RAGHAV mckoy
[2024-11-22] MEDS: methADONE HCl 20 MG/2 ML ORAL.CONC 120 MG PO (17:41)
[2024-11-22 17:49] VITALS: BP 136/94; PULSE 76; RESP 16; TEMP 36.1; O2SAT 98
== END 2024-11-22 17:49 | disposition home or self-care (01) ==
PROVIDERS: Emergency Provider Internal Medicine
DX: F11.20 Opioid dependence, uncomplicated (principal); I10 Essential (primary) hypertension; Z79.899 Other long term (current) drug therapy
CPT/HCPCS: 99282

== ENCOUNTER 2024-11-25 09:31 | Emergency (ER) | payer OTHER, SELFPAY ==
[2024-11-25 09:36] VITALS: BP 140/101; PULSE 65; RESP 18; TEMP 36.4; O2SAT 96; BMI 24.9
--- NOTE | 2024-11-25 11:04 | ED.GENADULT ---
HPI - General Adult General Chief complaint: General Medical Stated complaint: MEDICATION Time Seen by Provider: 11/25/24 11:00 Source: patient, RN notes reviewed and old records reviewed Mode of arrival: ambulatory Limitations: no limitations History of Present Illness ED Provider: Lauren HPI narrative: Patient is a 44-year-old female with history of polysubstance use disorder on methadone presenting to the ED for her methadone dose, states clinic is not open today. Does not have a last dose letter. States she slept through her dose yesterday so last dose was 11/23/24. complaint: methadone dependence Onset (ago): day(s) Related Data Home Medications ?Medication ?Instructions ?Recorded ?Confirmed baclofen 20 mg tablet 20 mg PO TID 03/27/24 03/27/24 clonidine HCl 0.1 mg tablet 0.1 mg PO BID 03/27/24 03/27/24 escitalopram oxalate 10 mg tablet 10 mg PO DAILY 03/27/24 03/27/24 folic acid 1 mg tablet 1 mg PO DAILY 03/27/24 03/27/24 lactulose 10 gram/15 mL oral 30 ml PO TID 03/27/24 03/27/24 solution ondansetron HCl 4 mg tablet 8 mg PO BID 03/27/24 03/27/24 pantoprazole 40 mg tablet,delayed 40 mg PO BID 03/27/24 03/27/24 release pregabalin 200 mg capsule 200 mg PO TID 03/27/24 03/27/24 quetiapine 100 mg tablet 100 mg PO BEDTIME 03/27/24 03/27/24 quetiapine 50 mg tablet 50 mg PO BEDTIME 03/27/24 03/27/24 ramelteon 8 mg tablet (Rozerem) 8 mg PO BEDTIME 03/27/24 03/27/24 methadone 10 mg/mL oral 120 mg PO DAILY 11/25/24 11/25/24 concentrate (Methadone Intensol) Allergies Allergy/AdvReac Type Severity Reaction Status Date / Time No Known Allergies Allergy Verified 11/25/24 09:38 Review of Systems Review of Systems: As per HPI. Yes all other systems are reviewed and are negative Constitutional: Constitutional: Reports as per HPI [facility] Past Medical History Medical History (Updated 11/25/24 @ 14:01 by Mikayla Lauren, SERVICE DELIVERY MANAGER) Opioid use disorder Bacteremia Polysubstance use disorder Hepatitis C antibody positive in blood Cocaine abuse Heroin abuse PTSD (post-traumatic stress disorder) Depression Anxiety Opiate abuse, continuous Social History Social History Household Members: Unknown / Unable to assess Housing: Unknown / Unable to assess Do you presently have visiting nurse or other home services: No Alcohol intake: never Comment: 1:1 sitter Patient Tobacco Use Status: Tobacco use Unknown Tobacco use type: Cigarette Cigarette Packs Per Day: 1 Cigarettes Per Day: 20.0 Years Smoked: 30 Second Hand Smoke Exposure: Yes Substance Use Type: Heroin Advance Directives: Yes Advance Directives on File: Yes Advance Directives Date on File: 10/03/23 Do you have a plan to hurt others: No Plan service: No Physical Exam ED Vital Signs: Vital Signs - 24 hr 11/25/24 09:36 Temperature 97.5 F Pulse Rate 65 Respiratory Rate 18 Blood Pressure 140/101 H Pulse Oximetry 96 Oxygen Delivery Method Room Air BMI result Body Mass Index 24.9 Vital signs have been reviewed and appear to be correct. Blood pressure elevated. Heart rate normal. Respiratory rate normal. Temperature normal. Oxygen saturation normal. Const General: cooperative and no acute distress Orientation/consciousness: oriented to person, oriented to place, oriented to time and patient oriented x3 Limitations: no limitations HENMT Head: Yes normocephalic and Yes atraumatic Ears: external ears normal General nose exam: Normal external nose present Face and sinus: Yes face symmetric Mouth: oropharynx normal and moist mucous membranes Throat: Yes uvula midline Eyes Pupils: Equal, round and reactive pupils present Neck Neck: Yes normal visual inspection and Yes supple Resp Effort & Inspection: normal respiratory effort and able to speak in complete sentences Auscultation: clear to auscultation bilaterally Cardio Rate: regular rate Rhythm: regular rhythm Heart sounds: S1 normal heart sound present and S2 normal heart sound present GI Palpation (GI): Soft to palpation and nontender Auscultation: normoactive bowel sounds General: Yes no CVA tenderness Back/Spine/Pelvis Back: no CVA tenderness Skin General skin exam: elasticity normal and turgor normal Neuro General: oriented to person, oriented to place, oriented to time, patient oriented x3, moves all extremities, no focal motor deficits and CN's II-XI intact bilaterally Cranial nerves: Yes Equal, round and reactive pupils present Cognition (Neuro): normal cognition Extrem General: Yes full ROM, Yes no pedal edema and Yes no calf tenderness Psych Mental Status: mental status grossly normal Affect: normal affect Thought process: Normal thought process present Medications Administered Discontinued Medications Generic Name Dose Route Start Last Admin Trade Name Erik PRN Reason Stop Dose Admin Methadone HCl 120 mg 11/25/24 11:45 11/25/24 12:00 Methadone Hcl 20 Mg/2 Ml Oral.Conc PO 11/25/24 11:46 120 mg ONCE ONE Administration Medical Decision Making Medical Decision Making [facility] Narrative: Patient is a 44-year-old female with history of polysubstance use disorder on methadone presenting to the ED for her methadone dose, states clinic is not open today. On exam patient is awake, A+Ox3, VS WNL, afebrile, normal neurological exam without focal deficits, physical exam findings as above. Given reported symptoms and physical exam findings, initial differential includes but is not limited to methadone dependence. Last dose confirmed by RN with clinic and dose ordered. Advised patient to follow up with clinic as normal tomorrow. Return with any new or concerning symptoms. Differential Diagnosis Differential Diagnoses: The differential diagnosis associated with the presentation includes as per [facility] External Record Review External record reviewed: Inpatient record, Office record and Outpatient record Prescription Management I considered prescription management with: Other Discharge Plan Discharge Clinical Impression: Methadone dependence Patient Disposition: Home, Self-Care Additional Instructions: You were medicated in the emergency department today with your regular dose of methadone. Follow up with your clinic tomorrow. Return with any new or concerning symptoms. Prescriptions: No Action clonidine HCl 0.1 mg tablet 0.1 mg PO BID ondansetron HCl 4 mg tablet 8 mg PO BID quetiapine 100 mg tablet 100 mg PO BEDTIME baclofen 20 mg tablet 20 mg PO TID pantoprazole 40 mg tablet,delayed release (DR/EC) 40 mg PO BID folic acid 1 mg tablet 1 mg PO DAILY escitalopram oxalate 10 mg tablet 10 mg PO DAILY lactulose 10 gram/15 mL solution 30 ml PO TID pregabalin 200 mg capsule 200 mg PO TID ramelteon [Rozerem] 8 mg tablet 8 mg PO BEDTIME quetiapine 50 mg tablet 50 mg PO BEDTIME methadone [Methadone Intensol] 10 mg/mL Concentrate 120 mg PO DAILY Print Language: Congolese
--- NOTE | 2024-11-25 11:37 | HE.PHANOTE ---
RE: methadone Last dose 120mg on 11/23/24 @1568 [facility]
[2024-11-25] MEDS: methADONE HCl 20 MG/2 ML ORAL.CONC 120 MG PO (12:00)
[2024-11-25 14:13] VITALS: BP 140/101; PULSE 65; RESP 18; TEMP 36.4; O2SAT 96
== END 2024-11-25 14:13 | disposition home or self-care (01) ==
PROVIDERS: Emergency Provider Emergency Medicine
DX: F11.20 Opioid dependence, uncomplicated (principal); F19.10 Other psychoactive substance abuse, uncomplicated
CPT/HCPCS: 99282; 99283

== ENCOUNTER 2024-12-06 10:50 | Emergency (ER) | payer OTHER, SELFPAY ==
[2024-12-06 11:17] VITALS: BP 138/91; PULSE 72; RESP 16; TEMP 36.6; O2SAT 96; BMI 25.6
--- NOTE | 2024-12-06 11:17 | ED_ITS ---
HPI - General Adult General Chief complaint: General Medical Stated complaint: Mthadone dose Time Seen by Provider: 12/06/24 11:25 Source: patient Mode of arrival: ambulatory Limitations: no limitations History of Present Illness ED Provider: julia pablo np HPI narrative: Patient is a 44-year-old female who presents emergency department requesting assistance with methadone dosing, she is currently enrolled at [facility]. she reports that when she arrived there today was too late for her appointment. She presents with a sealed envelope containing her last dose letter coming from [facility], reports she was last dosed with methadone 120 mg yesterday. On review there is a last dosage letter dated 12/05/2024 at 05:39 with methadone dosage of 120 mg. Related Data Home Medications ?Medication ?Instructions ?Recorded ?Confirmed baclofen 20 mg tablet 20 mg PO TID 03/27/24 03/27/24 clonidine HCl 0.1 mg tablet 0.1 mg PO BID 03/27/24 03/27/24 escitalopram oxalate 10 mg tablet 10 mg PO DAILY 03/27/24 03/27/24 folic acid 1 mg tablet 1 mg PO DAILY 03/27/24 03/27/24 lactulose 10 gram/15 mL oral 30 ml PO TID 03/27/24 03/27/24 solution ondansetron HCl 4 mg tablet 8 mg PO BID 03/27/24 03/27/24 pantoprazole 40 mg tablet,delayed 40 mg PO BID 03/27/24 03/27/24 release pregabalin 200 mg capsule 200 mg PO TID 03/27/24 03/27/24 quetiapine 100 mg tablet 100 mg PO BEDTIME 03/27/24 03/27/24 quetiapine 50 mg tablet 50 mg PO BEDTIME 03/27/24 03/27/24 ramelteon 8 mg tablet (Rozerem) 8 mg PO BEDTIME 03/27/24 03/27/24 methadone 10 mg/mL oral 120 mg PO DAILY 11/25/24 11/25/24 concentrate (Methadone Intensol) Allergies Allergy/AdvReac Type Severity Reaction Status Date / Time No Known Allergies Allergy Verified 12/06/24 11:19 Review of Systems Review of Systems: Yes all other systems are reviewed and are negative PMFSH Past Medical History Attestation statement: The following information was validated with the patient. Source: old records reviewed Medical History Opioid use disorder Bacteremia Polysubstance use disorder Hepatitis C antibody positive in blood Cocaine abuse Heroin abuse PTSD (post-traumatic stress disorder) Depression Anxiety Opiate abuse, continuous Social History Social History Household Members: Unknown / Unable to assess Housing: Unknown / Unable to assess Do you presently have visiting nurse or other home services: No Alcohol intake: never Comment: 1:1 sitter Patient Tobacco Use Status: Tobacco use Unknown Tobacco use type: Cigarette Cigarette Packs Per Day: 1 Cigarettes Per Day: 20.0 Years Smoked: 30 Second Hand Smoke Exposure: Yes Substance Use Type: Heroin Advance Directives Date on File: 10/03/23 Do you have a plan to hurt others: No Plan service: No Physical Exam ED Vital Signs: Vital Signs - 24 hr 12/06/24 11:17 Temperature 97.9 F Pulse Rate 72 Respiratory Rate 16 Blood Pressure 138/91 H Pulse Oximetry 96 Oxygen Delivery Method Room Air BMI result Body Mass Index 25.6 Appearance: Alert.?Oriented to person, place and time. No acute distress.?Normal affect. Eyes: Pupils equal, round and reactive to light.? CVS: Heart sounds normal. Normal heart rate and rhythm.? Pulses normal.?? Respiratory: No respiratory distress.? Lung sounds clear to auscultation bilaterally?? Skin: Skin warm and dry.? Normal skin color.? Neuro: Moves all extremities spontaneously. Sensation intact bilaterally. CN II- XII intact. No focal neuro deficits. Ambulates with normal steady gait. Course Course Course Narrative: This is an RME performed by Julia Pablo CNP: Additional HPI, ROS, PE not included below will be deferred to primary provider. Patient is a 44-year-old female who presents emergency department requesting assistance with methadone dosing, she is currently enrolled at [facility]. she reports that when she arrived there today was too late for her appointment. She presents with a sealed envelope containing her last dose letter coming from [facility], reports she was last dosed with methadone 120 mg yesterday. On review there is a last dosage letter dated 12/05/2024 at 05:39 with methadone dosage of 120 mg. Medical Decision Making Medical Decision Making MDM Narrative: Patient is a 44-year-old female with past medical history of polysubstance use disorder, methadone dependence presenting to the emergency department as per HPI requesting assistance with methadone dosing. I have open the sealed envelope of her last dose and letter as per HPI affirming her dosage yesterday of methadone 120 mg orally. Last dose letter was faxed to pharmacy by nursing staff patient provided with her dosage today and provided with a new last dose letter to follow-up further at [facility] Differential Diagnosis Differential Diagnoses: The differential diagnosis associated with the presentation includes (See narrative above) External Record Review External record reviewed: Outpatient record Chronic Conditions Patient?s care impacted by: Other (See narrative above) Discharge Plan Discharge Clinical Impression: Methadone dependence Patient Disposition: Home, Self-Care Additional Instructions: You were provided with your methadone dosing today 12/06/2024 at 120 mg. Please see your provided last dose letter to give to your clinic Prescriptions: No Action clonidine HCl 0.1 mg tablet 0.1 mg PO BID ondansetron HCl 4 mg tablet 8 mg PO BID quetiapine 100 mg tablet 100 mg PO BEDTIME baclofen 20 mg tablet 20 mg PO TID pantoprazole 40 mg tablet,delayed release (DR/EC) 40 mg PO BID folic acid 1 mg tablet 1 mg PO DAILY escitalopram oxalate 10 mg tablet 10 mg PO DAILY lactulose 10 gram/15 mL solution 30 ml PO TID pregabalin 200 mg capsule 200 mg PO TID ramelteon [Rozerem] 8 mg tablet 8 mg PO BEDTIME quetiapine 50 mg tablet 50 mg PO BEDTIME methadone [Methadone Intensol] 10 mg/mL Concentrate 120 mg PO DAILY Print Language: Surinamese
--- NOTE | 2024-12-06 11:53 | HE.PHANOTE ---
METHADONE: Dose: 120mg, last dosed 12/05/24. Verified from [facility], [facility].
[2024-12-06] MEDS: methADONE HCl 20 MG/2 ML ORAL.CONC 120 MG PO (12:41)
[2024-12-06 12:52] VITALS: BP 131/89; PULSE 76; RESP 16; TEMP 36.7; O2SAT 96
== END 2024-12-06 12:53 | disposition home or self-care (01) ==
PROVIDERS: Emergency Provider Emergency Medicine
DX: F11.20 Opioid dependence, uncomplicated (principal); Z79.899 Other long term (current) drug therapy
CPT/HCPCS: 99282

== ENCOUNTER 2025-02-11 13:24 | Emergency (ER) | payer OTHER, SELFPAY ==
[2025-02-11 13:28] VITALS: BP 0/0; PULSE 0; O2SAT 0
[2025-02-11 13:49] VITALS: BMI 26.4
[2025-02-11 13:56] VITALS: RESP 18
[2025-02-11 14:15] VITALS: PULSE 85; RESP 14; O2SAT 93
--- NOTE | 2025-02-11 14:16 | MHC.EDTECH ---
unable to obtain full set of vitals at this time due to pt uncooperative to sitting still
[2025-02-11 14:23] VITALS: BP 101/80; PULSE 80; RESP 18; TEMP 36.7; O2SAT 94
--- NOTE | 2025-02-11 14:24 | PC.NURSE ---
Pt presented crying, thrashing around, yelling intermittently. Pt was changed over by security into safety clothing and placed it in the [place]. Pt not answering questions, just yelling intermittently. Unable to do full interview.
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
[2025-02-11 14:35] VITALS: BP 101/80; PULSE 80; RESP 18; TEMP 36.7; O2SAT 94
== END 2025-02-11 14:42 | disposition home or self-care (01) ==
PROVIDERS: Emergency Provider Emergency Medicine; PCP Internal Medicine
DX: F41.9 Anxiety disorder, unspecified (principal); R45.1 Restlessness and agitation; F11.20 Opioid dependence, uncomplicated; F19.10 Other psychoactive substance abuse, uncomplicated; F17.210 Nicotine dependence, cigarettes, uncomplicated
CPT/HCPCS: 99283

== ENCOUNTER 2025-02-21 18:49 | Emergency (ER) | payer OTHER, SELFPAY ==
--- NOTE | 2025-02-21 19:02 | ED_ITS ---
HPI - General Adult General Chief complaint: General Medical Stated complaint: Missed Methadone treatment Time Seen by Provider: 02/21/25 19:41 Source: patient Mode of arrival: ambulatory Limitations: no limitations History of Present Illness ED Provider: julia pablo np HPI narrative: patient is a 44-year-old female who presents emergency department for evaluation requesting assistance with methadone dosing, reports that she was last dose yesterday at [facility], states she takes 140 mg daily. Unfortunately, the clinic is only open on Sundays from 07:00-10:00 and she ov erslept and did not make it to the clinic today. Reports that she just woke up this evening. denies recreational drug usage Related Data Home Medications ?Medication ?Instructions ?Recorded ?Confirmed baclofen 20 mg tablet 20 mg PO TID 03/27/24 03/27/24 clonidine HCl 0.1 mg tablet 0.1 mg PO BID 03/27/24 03/27/24 escitalopram oxalate 10 mg tablet 10 mg PO DAILY 03/27/24 03/27/24 folic acid 1 mg tablet 1 mg PO DAILY 03/27/24 03/27/24 lactulose 10 gram/15 mL oral 30 ml PO TID 03/27/24 03/27/24 solution ondansetron HCl 4 mg tablet 8 mg PO BID 03/27/24 03/27/24 pantoprazole 40 mg tablet,delayed 40 mg PO BID 03/27/24 03/27/24 release pregabalin 200 mg capsule 200 mg PO TID 03/27/24 03/27/24 quetiapine 100 mg tablet 100 mg PO BEDTIME 03/27/24 03/27/24 quetiapine 50 mg tablet 50 mg PO BEDTIME 03/27/24 03/27/24 ramelteon 8 mg tablet (Rozerem) 8 mg PO BEDTIME 03/27/24 03/27/24 methadone 10 mg/mL oral 140 mg PO DAILY 11/25/24 02/21/25 concentrate (Methadone Intensol) Allergies Allergy/AdvReac Type Severity Reaction Status Date / Time No Known Allergies Allergy Verified 02/21/25 19:06 Review of Systems Review of Systems: Yes all other systems are reviewed and are negative PMFSH Past Medical History Attestation statement: The following information was validated with the patient. Source: old records reviewed Medical History Opioid use disorder Bacteremia Polysubstance use disorder Hepatitis C antibody positive in blood Cocaine abuse Heroin abuse PTSD (post-traumatic stress disorder) Depression Anxiety Opiate abuse, continuous Social History Social History Household Members: Unknown / Unable to assess Housing: Unknown / Unable to assess Do you presently have visiting nurse or other home services: No Alcohol intake: never Comment: 1:1 sitter Patient Tobacco Use Status: Tobacco use Unknown Tobacco use type: Cigarette Cigarette Packs Per Day: 1 Cigarettes Per Day: 20.0 Years Smoked: 30 Second Hand Smoke Exposure: Yes Substance Use Type: Heroin Advance Directives: Yes Advance Directives on File: Yes Advance Directives Date on File: 10/03/23 Do you have a plan to hurt others: No Plan service: No Physical Exam ED Vital Signs: Vital Signs - 24 hr 02/21/25 19:04 Temperature 97.6 F Pulse Rate 63 Respiratory Rate 16 Blood Pressure 128/73 Pulse Oximetry 98 Oxygen Delivery Method Room Air BMI result Body Mass Index 33.6 Appearance: Alert.?Oriented to person, place and time. No acute distress.?Normal affect. Eyes: Pupils equal, round and reactive to light.? CVS: Heart sounds normal. Normal heart rate and rhythm.? Pulses normal.?? Respiratory: No respiratory distress.? Lung sounds clear to auscultation bilaterally?? Skin: Skin warm and dry.? Normal skin color.? Extremities: No lower extremity edema.? Neuro: Moves all extremities spontaneously. Sensation intact bilaterally. CN II- XII intact. No focal neuro deficits. Ambulates with normal steady gait. Medical Decision Making Medical Decision Making [facility] Narrative: patient is a 44-year-old female past medical history of opioid use disorder who presents to the emergency department requesting assistance with methadone dosing as per HPI with dosage missed today. Dosage for vacation was obtained from his methadone Clinic, given methadone 140 mg in the emergency department without complication. Offers no physical complaints and physical examination is benign. Stable for discharge outpatient follow-up with PCP/clinic Differential Diagnosis Differential Diagnoses: The differential diagnosis associated with the presentation includes ( opioid Use disorder, methadone dependence) Lab Data [facility] Lab Attestation statement: I reviewed the patient's lab results. External Record Review External record reviewed: Outpatient record Discharge Plan Discharge Clinical Impression: Methadone dependence Patient Disposition: Home, Self-Care Additional Instructions: your urine drug screening tested positive for methadone in addition to opiates, fentanyl, cocaine, marijuana. It is advised that you refrain from the use of recreational drug usage, if you feel that you need assistance with detox you may return back to emergency department or speak with your clinic further Opiate use disorder You were seen in our Emergency Department today for treatment of opiate use disorder. You may have been dosed with medication for opiate use disorder (MOUD) in the form of suboxone or methadone. You may experience feeling some withdrawal symptoms and this is normal. The? dose in the Emergency Department is a starting dose and meant to be titrated up once you follow up with a clinic. Please do not feel discouraged, it is a process. The nurse has reviewed with you where to follow up and what information to bring with you, to continue treatment. You also may have been given naloxone (narcan) to take home with you. This medication is used to potentially treat opiate overdose. If you decide you want to stop or cut down on how much you?re using, you can call or walk into our outpatient Addiction Treatment office: [facility] (M-F 9am-5p) [address] [place] [address], [address] [phone] You may have been provided with safer injection?items, please take time to take care of YOU and your health. Use new supplies whenever possible to lessen the chances of infections and other illnesses.? ?If you need more supplies, please go [facility],? [address] [place] [address] OR you can call or text to coordinate delivery of safer supplies. You were also provided a list of several treatment providers in the area.? If you experience any worsening symptoms you cannot control please return to the ED or call 911. Please follow up at your next appointment. Things to look out for are fevers, chest pain, shortness of breath, severe pain, dizziness, fainting or any other concerns. Prescriptions: No Action clonidine HCl 0.1 mg tablet 0.1 mg PO BID ondansetron HCl 4 mg tablet 8 mg PO BID quetiapine 100 mg tablet 100 mg PO BEDTIME baclofen 20 mg tablet 20 mg PO TID pantoprazole 40 mg tablet,delayed release (DR/EC) 40 mg PO BID folic acid 1 mg tablet 1 mg PO DAILY escitalopram oxalate 10 mg tablet 10 mg PO DAILY lactulose 10 gram/15 mL solution 30 ml PO TID pregabalin 200 mg capsule 200 mg PO TID ramelteon [Rozerem] 8 mg tablet 8 mg PO BEDTIME quetiapine 50 mg tablet 50 mg PO BEDTIME methadone [Methadone Intensol] 10 mg/mL Concentrate 140 mg PO DAILY Referrals: Physician,Unknown J [Primary Care Provider] - Print Language: French
[2025-02-21 19:04] VITALS: BP 128/73; PULSE 63; RESP 16; TEMP 36.4; O2SAT 98; BMI 33.6
--- NOTE | 2025-02-21 19:59 | HE.PHANOTE ---
RE: METHADONE DOSING Last dose of methadone 140 mg was given at [facility] [phone] on 02/20/25 @0950 per Boogie Thompson.
[2025-02-21 20:14] LABS: Amphetamine Screen Urine Not Detected (Not Detect); Barbiturates, Urine Not Detected (Not Detect); Benzodiazepines Screen Urine Not Detected (Not Detect); Buprenorphine Scr Not Detected (Not Detect); Cannabinoid Screen Urine POSITIVE (Not Detect); Cocaine Screen Urine POSITIVE (Not Detect); Fentanyl, urine POSITIVE (Not Detect); Methadone Screen, Urine Positive (Not Detect); Opiate Screen Urine POSITIVE (Not Detect); Oxycodone Screen Urine Not Detected (Not Detect); Phencyclidine Screen Urine Not Detected (Not Detect)
[2025-02-21] MEDS: methADONE HCl 20 MG/2 ML ORAL.CONC 140 MG PO (20:17)
[2025-02-21 20:34] VITALS: BP 128/73; PULSE 63; RESP 16; TEMP 36.4; O2SAT 98
--- NOTE | 2025-02-21 20:34 | PC.NURSE ---
Last dose letter given to PT.
== END 2025-02-21 20:34 | disposition home or self-care (01) ==
PROVIDERS: Nurse Practitioner Family; Emergency Provider Emergency Medicine
DX: F11.20 Opioid dependence, uncomplicated (principal); Z79.899 Other long term (current) drug therapy
CPT/HCPCS: 80307; 99282; 99283

== ENCOUNTER 2025-02-28 19:57 | Emergency (ER) | payer OTHER, SELFPAY ==
[2025-02-28 20:15] VITALS: BP 138/102; PULSE 97; RESP 16; TEMP 36.6; O2SAT 97; BMI 26.7
--- NOTE | 2025-02-28 20:17 | ED.GENADULT ---
HPI - General Adult General Chief complaint: General Medical Stated complaint: methadone shot Time Seen by Provider: 02/28/25 20:19 Source: patient and family (patient's ) Mode of arrival: ambulatory Limitations: no limitations History of Present Illness ED Provider: Nelsy Bowens PA-C HPI narrative: Patient is a 44 year old assigned female at with a history of methadone dependence presenting to the emergency department today for her methadone dose of 140. Patient states that she missed her dose of 140mg of Methadone today and would like to be dosed here. Patient denies any dizziness, lightheadedness, abdominal pain, nausea, vomiting, fever, chills, blurry vision, double vision, loss of vision, chest pain, difficulty breathing, shortness of breath, back pain, night sweats, pain with urination, increased urinary frequency, increased urinary urgency, blood in her urine or stool, syncope or a near syncopal episode, recent trauma or falls, bowel incontinence, bladder incontinence, or any other complaints at this time. Relieving factors: none Exacerbating factors: none Associated symptoms: denies other symptoms Treatments prior to arrival: none Related Data Home Medications ?Medication ?Instructions ?Recorded ?Confirmed baclofen 20 mg tablet 20 mg PO TID 03/27/24 03/27/24 clonidine HCl 0.1 mg tablet 0.1 mg PO BID 03/27/24 03/27/24 escitalopram oxalate 10 mg tablet 10 mg PO DAILY 03/27/24 03/27/24 folic acid 1 mg tablet 1 mg PO DAILY 03/27/24 03/27/24 lactulose 10 gram/15 mL oral 30 ml PO TID 03/27/24 03/27/24 solution ondansetron HCl 4 mg tablet 8 mg PO BID 03/27/24 03/27/24 pantoprazole 40 mg tablet,delayed 40 mg PO BID 03/27/24 03/27/24 release pregabalin 200 mg capsule 200 mg PO TID 03/27/24 03/27/24 quetiapine 100 mg tablet 100 mg PO BEDTIME 03/27/24 03/27/24 quetiapine 50 mg tablet 50 mg PO BEDTIME 03/27/24 03/27/24 ramelteon 8 mg tablet (Rozerem) 8 mg PO BEDTIME 03/27/24 03/27/24 methadone 10 mg/mL oral 140 mg PO DAILY 11/25/24 02/21/25 concentrate (Methadone Intensol) Allergies Allergy/AdvReac Type Severity Reaction Status Date / Time No Known Allergies Allergy Verified 02/28/25 20:17 Review of Systems Constitutional: Constitutional: Reports no additional constitutional complaints, Denies chills, Denies fever(s) and Denies night sweats Eyes: Eyes: Reports no additional eye complaints, Denies blurry vision, Denies change in vision, Denies diplopia, Denies eye discharge, Denies loss of vision and Denies eye pain ENT: Denies dizziness Cardiovascular: Cardiovascular: Reports no additional cardiovascular complaints, Denies chest pain, Denies lightheadedness, Denies Loss of Consciousness and Denies dyspnea Respiratory: Respiratory: Reports no additional respiratory complaints and Denies dyspnea Gastrointestinal: Gastrointestinal: Reports no additional gastrointestinal complaints, Denies abdominal pain, Denies melena, Denies hematochezia, Denies change in bowel habits and Denies change in stool character Genitourinary: Genitourinary: Denies hematuria, Denies urinary frequency, Denies dysuria, Denies urinary incontinence, Denies urinary hesitancy and Denies urinary urgency Musculoskeletal: Musculoskeletal: Reports no additional musculoskeletal complaints, Denies numbness and Denies tingling Neurologic: Denies dizziness, Denies loss of vision, Denies numbness and Denies tingling Psychiatric: Psychiatric: Reports no additional psychiatric complaints Endocrine: Endocrine: Reports no additional endocrine complaints Hematologic/Lymphatic: Hematologic/Lymphatic: Reports no additional hematologic/lymphatic complaints Allergic/Immunologic: Allergic/Immunologic: Reports no additional allergic/immunologic complaints PMFSH Past Medical History Attestation statement: The following information was validated with the patient. (all information validated with the patient's ) Source: old records reviewed, obtained from family (patient's provided additional history and confirmed the history provided by the patient.) and nursing notes reviewed Medical History Opioid use disorder Bacteremia Polysubstance use disorder Hepatitis C antibody positive in blood Cocaine abuse Heroin abuse PTSD (post-traumatic stress disorder) Depression Anxiety Opiate abuse, continuous Social History Social History Household Members: Unknown / Unable to assess Housing: Unknown / Unable to assess Do you presently have visiting nurse or other home services: No Alcohol intake: never Comment: 1:1 sitter Patient Tobacco Use Status: Tobacco use Unknown Tobacco use type: Cigarette Cigarette Packs Per Day: 1 Cigarettes Per Day: 20.0 Years Smoked: 30 Second Hand Smoke Exposure: Yes Substance Use Type: Heroin Advance Directives Date on File: 10/03/23 Do you have a plan to hurt others: No Plan service: No Physical Exam ED Vital Signs: Vital Signs - 24 hr 02/28/25 20:15 Temperature 98 F Pulse Rate 97 Respiratory Rate 16 Blood Pressure 138/102 H Pulse Oximetry 97 Oxygen Delivery Method Room Air BMI result Body Mass Index 26.7 Const General: cooperative, no acute distress, alert and awake Nutritional Appearance: well nourished Orientation/consciousness: patient oriented x3 Limitations: no limitations HENMT Head: Yes normal to inspection and Yes atraumatic Ears: hearing grossly normal bilaterally and external ears normal General nose exam: Normal external nose present, no nasal discharge noted and no epistaxis Face and sinus: Yes normal facial exam, No abrasion and No laceration Mouth: Normal oral and palatal mucosa present, no drooling and no muffled voice Eyes General: appearance normal, both eyes and all related structures Periorbital: periorbital findings normal Eyelids: Yes eyelids normal Conjunctivae: conjunctivae normal Pupils: Equal, round and reactive pupils present EOM: EOMs intact bilaterally Neck Neck: Yes normal visual inspection, Yes full ROM and Yes no lymphadenopathy Chest Chest palpation & inspection: normal inspection of the chest Resp Effort & Inspection: normal respiratory effort and able to speak in complete sentences GI Inspection: Yes normal to inspection Neuro General: patient oriented x3, moves all extremities and CN's II-XI intact bilaterally Cranial nerves: Yes Equal, round and reactive pupils present Cognition (Neuro): normal cognition Extrem General: Yes normal to inspection, Yes full ROM and Yes capillary refill normal Psych Appearance: grossly normal Mental Status: mental status grossly normal Affect: normal affect Attitude: cooperative Thought process: Normal thought process present Thought content: Normal thought content present Insight: Good insight present (Psych) Medical Decision Making Medical Decision Making MDM Narrative: Patient is a 44 year old assigned female at with a history of methadone dependence presenting to the emergency department today for her methadone dose of 140. Patient's physical exam was unremarkable. I explained my physical exam findings as well to the patient and the patient's . I answered all questions asked by the patient and the patient's . Unfortunately, there was no one able to verify the patient's dose at her methadone clinic and therefore, she could only be given 40mg. I stressed the importance of the patient taking her medication as directed (either prescribed or as the over the counter packaging recommends). I stressed the importance of the patient following up with her primary care provider and her regular methadone clinic. I stressed the importance of the patient returning to the emergency department immediately if her symptoms were to worsen or if she were to develop any dizziness, shortness of breath, difficulty breathing, chest pain, blurry vision, loss of vision, nausea, vomiting, abdominal pain, fever, chills, back pain, or any other complaints. Patient verbalized agreement and understanding with this treatment plan and discharge. Differential Diagnosis Differential Diagnoses: The differential diagnosis associated with the presentation includes Methadone dependence Admission/Observation Consideration of admission/observation: Escalation of care including admission/observation considered Patient would have been admitted to the hospital had her clinical presentation warranted hospital admission. Independent Historian Clinical information obtained from an independent historian. History obtained from or confirmed by: Spouse (patient's provided additional history and confirmed the history provided by the patient.) Discharge Plan Discharge Clinical Impression: Methadone dependence Patient Disposition: Home, Self-Care Instructions: Opioid Use Disorder (ED) Additional Instructions: Follow up with your clinic for your next dose as directed. Follow up with your primary care provider. Return to the emergency department immediately if you develop any numbness, tingling, dizziness, shortness of breath, difficulty breathing, chest pain, blurry vision, loss of vision, nausea, vomiting, abdominal pain, fever, chills, back pain, or any other complaints. Please see the information below about our Patient Portal. If you are not yet enrolled in the [facility] Patient Portal, you will receive an enrollment email invitation following your visit to any [facility] care setting. You may also self-enroll in the Patient Portal by visiting our website: [email or web address] The following information is required to access the Patient Portal: - Your [facility] Medical Record Number - Your personal home email address (must match what is in your electronic medical record, Registration staff can assist with this) - Name - Date of Capabilities of the Patient Portal: - Message some providers - View upcoming appointments - Access your health summary, medical history, and visit history - View current conditions and allergies - View procedure and lab results - View your medications, including guidelines, side effects, and precautions - Complete pre-appointment questionnaires requested by your provider - Ready summary reports of your office visits and procedures To access the Patient Portal Mobile Leatha, follow these directions: - Search Thingies in the Leatha Store or Google Zenogen Store - Download the Leatha - Search for [facility] - Enter your login/password Prescriptions: No Action clonidine HCl 0.1 mg tablet 0.1 mg PO BID ondansetron HCl 4 mg tablet 8 mg PO BID quetiapine 100 mg tablet 100 mg PO BEDTIME baclofen 20 mg tablet 20 mg PO TID pantoprazole 40 mg tablet,delayed release (DR/EC) 40 mg PO BID folic acid 1 mg tablet 1 mg PO DAILY escitalopram oxalate 10 mg tablet 10 mg PO DAILY lactulose 10 gram/15 mL solution 30 ml PO TID pregabalin 200 mg capsule 200 mg PO TID ramelteon [Rozerem] 8 mg tablet 8 mg PO BEDTIME quetiapine 50 mg tablet 50 mg PO BEDTIME methadone [Methadone Intensol] 10 mg/mL Concentrate 140 mg PO DAILY Referrals: [facility] Family Medicine [Provider Group] (Call to establish and follow up with a primary care provider. If you already have a primary care provider, please follow up with them.) [facility] [Provider Group] (Call to establish and follow up with a primary care provider. If you already have a primary care provider, please follow up with them.) [facility] [Provider Group] (Call to establish and follow up with a primary care provider. If you already have a primary care provider, please follow up with them.) [facility] Primary [facility] [Provider Group] (Call to establish and follow up with a primary care provider. If you already have a primary care provider, please follow up with them.) Print Language: Moroccan
[2025-02-28] MEDS: methADONE HCl 20 MG/2 ML ORAL.CONC 40 MG PO (20:59)
[2025-02-28 21:01] VITALS: BP 138/102; PULSE 97; RESP 16; TEMP 36.6; O2SAT 97
--- OUTSIDE RECORDS SUMMARY | 2025-02-28 21:06 | XMS_ITS | Clinical Summary ---
Author Organization [facility] ity Address [address] [place] [address] Care Team Providers Care Diagnostic Tech Name Role Phone Unavailable Primary Care Provider Unavailabl e Social History Tobacco Use Types Packs/Day Years Used Date Smoking Tobacco: Never Assessed Comments Unknown Sex and Gender Information Value Date Recorded Sex Assigned at Not on file Legal Sex Female 12:25 AM EST Gender Identity Not on file Sexual Orientation Not on file Plan of Treatment Health Maintenance Due Date Last Done Comments Breast Cancer Screening 1982 DTaP,Tdap,and Td Vaccines (1 - Tdap) 2001 Hepatitis B Vaccines (1 of 3 - 19+ 3-dose series) 2001 Cervical Cancer Screening: P ap Smear 2003 COVID-19 Vaccine (2023-2 5 season) 2024 Influenza Vaccine (#1) 2024 HIB Vaccines Aged Out No longer eligi ble based on patient's age to complete this topic HPV Vaccines Aged Out No longer eligi ble based on patient's age to complete this topic Hepatitis A Vaccines Aged Out No long er eligible based on patient's age to complete this topic IPV Vaccines Aged Out No longer eligi ble based on patient's age to complete this topic MMR Vaccines Aged Out No longer eligi ble based on patient's age to complete this topic Meningococcal ACWY Vaccine Aged Out N o longer eligible based on patient's age to complete this topic Meningococcal B Vacine Aged Out No lo nger eligible based on patient's age to complete this topic Pneumococcal Vaccine: Pediat rics (0 to 5 Years) and At-Risk Patients (6 to 64 Years) Aged Out No longer eligible b ased on patient's age to complete this topic RSV Immunization Patients Un raghav 20 months Aged Out No longer eligible b ased on patient's age to complete this topic Varicella Vaccines Aged Out No longer eligible based on patient's age to complete this topic
--- OUTSIDE RECORDS SUMMARY | 2025-02-28 21:06 | XMS_ITS | Clinical Summary ---
Author Organization [employer] Address [address] [place] [address] Care Team Providers Care Cork Sorter Name Role Phone Barbara Cardoso MD Primary Care Provider [phone] Immunizations Name Administration Dates Next Due Pfizer Covid-19 Vaccine 12+ 01/17/2023 Social History Tobacco Use Types Packs/Day Years Used Date Smoking Tobacco: Never Assessed Comments Unknown Sex and Gender Information Value Date Recorded Sex Assigned at Female 09/24/2022 10:30 AM EDT Legal Sex Female 10:30 AM EDT Gender Identity Female 01/16/2023 12:06 PM EST Sexual Orientation Straight 01/16/2023 12 :06 PM EST Plan of Treatment Health Maintenance Due Date Last Done Comments Depression Screening 1982 HIV Screening 1982 SDOH Screening 1982 Alcohol/Substance Use Screening 1994 Tobacco Screening 1994 Family Planning (PISQ) 1997 Hepatitis C Screening 2000 Pap Smear 2003 Cervical Cancer Screening 2012 HPV/Cotest 2012 Hepatitis B Vaccines (3 of 3 - 19+ 3-dose series) 01/30/2017 09/06/2016, 08/02/2016 Mammogram 2022 COVID-19 Vaccine (3 - 2023-2 5 season) 2024 01/17/2023, 07/19/2021 Influenza Vaccine (#1) 2024 DTaP/Tdap/Td Vaccines (4 - T d or Tdap) 05/03/2025 05/03/2015, 11/25/2013, 05/31/2011 Zoster Vaccines (1 of 2) 2032 RSV Patients and Patients Aged 60 years or older (1 - 1-dose 75+ series) 2057 HIB Vaccines Aged Out No longer eligi [...] patient's age to complete this topic Meningococcal Vaccine Aged Out No damir merry eligible based on patient's age to complete this topic Pneumococcal Vaccine: Pediatrics (0 to 5 Years) and At-Risk Patients (6 to 49) Years) Aged Out No longer eligible b ased on patient's age to complete this topic RSV under 20 months Aged Out No longe r eligible based on patient's age to complete this topic Rotavirus Vaccines Aged Out No longer eligible based on patient's age to complete this topic Insurance [facility] Member Subscriber Plan / Payer (Ef fective 2022-Present) Name:Norma Chiang Relation to Subscriber:Self Name:Norma Chiang Payer ID:Not on file Group ID:[id number] Type:HMO Address: [place] [phone] Care Teams Cork Sorter Relationship Specialty Start Date End Date Barbara Cardoso MD [address] [place] [address] PCP - General Family Medicine 02/25/24
== END 2025-02-28 21:21 | disposition home or self-care (01) ==
LOC: HO.ED 21:04
PROVIDERS: Emergency Provider Internal Medicine
DX: F11.20 Opioid dependence, uncomplicated (principal)
CPT/HCPCS: 99282; 99283

== ENCOUNTER 2025-03-07 20:49 | Emergency (ER) | payer OTHER, SELFPAY ==
[2025-03-07 21:36] VITALS: BP 112/67; PULSE 60; RESP 16; TEMP 36.4; O2SAT 98; BMI 25.8
--- OUTSIDE RECORDS SUMMARY | 2025-03-07 22:01 | XMS_ITS | Clinical Summary ---
Author Organization [facility] ity Address [address] [place] [address] Care Team Providers Care Metal Moulder'S Assistant Name Role Phone Unavailable Primary Care Provider [...] Vaccine (2023-2 5 season) 2024 Influenza Vaccine (Season Ended) 2025 HIB Vaccines Aged Out No longer eligi [...] age to complete this topic Meningococcal B Vaccine Aged Out No l onger eligible based on patient's age to complete [...]
--- NOTE | 2025-03-07 22:05 | PC.NURSE ---
Dr. Thomas to [facility] 2 to eval pt. Pt became aigtated with MD yan and shantanu. LWCT.
--- NOTE | 2025-03-07 22:23 | ED.GENADULT ---
HPI - General Adult General Chief complaint: ETOH/Substance Use Stated complaint: missed methadone shot Time Seen by Provider: 03/07/25 21:55 Source: patient Mode of arrival: ambulatory Limitations: no limitations History of Present Illness ED Provider: HPI narrative: Patient is asking for methadone which missed earlier today as she took drugs and was sleeping patient has been using cocaine and opiates and drinking alcohol was seen here 02/28 for same Related Data Home Medications ?Medication ?Instructions ?Recorded ?Confirmed baclofen 20 mg tablet 20 mg PO TID 03/27/24 03/27/24 clonidine HCl 0.1 mg tablet 0.1 mg PO BID 03/27/24 03/27/24 escitalopram oxalate 10 mg tablet 10 mg PO DAILY 03/27/24 03/27/24 folic acid 1 mg tablet 1 mg PO DAILY 03/27/24 03/27/24 lactulose 10 gram/15 mL oral 30 ml PO TID 03/27/24 03/27/24 solution ondansetron HCl 4 mg tablet 8 mg PO BID 03/27/24 03/27/24 pantoprazole 40 mg tablet,delayed 40 mg PO BID 03/27/24 03/27/24 release pregabalin 200 mg capsule 200 mg PO TID 03/27/24 03/27/24 quetiapine 100 mg tablet 100 mg PO BEDTIME 03/27/24 03/27/24 quetiapine 50 mg tablet 50 mg PO BEDTIME 03/27/24 03/27/24 ramelteon 8 mg tablet (Rozerem) 8 mg PO BEDTIME 03/27/24 03/27/24 methadone 10 mg/mL oral 140 mg PO DAILY 11/25/24 02/21/25 concentrate (Methadone Intensol) Allergies Allergy/AdvReac Type Severity Reaction Status Date / Time No Known Allergies Allergy Verified 03/07/25 21:36 Review of Systems Review of Systems: Yes all other systems are reviewed and are negative PMFSH Past Medical History Medical History Opioid use disorder Bacteremia Polysubstance use disorder Hepatitis C antibody positive in blood Cocaine abuse Heroin abuse PTSD (post-traumatic stress disorder) Depression Anxiety Opiate abuse, continuous Social History Social History Household Members: Unknown / Unable to assess Housing: Unknown / Unable to assess Do you presently have visiting nurse or other home services: No Alcohol intake: never Comment: 1:1 sitter Patient Tobacco Use Status: Tobacco use Unknown Tobacco use type: Cigarette Cigarette Packs Per Day: 1 Cigarettes Per Day: 20.0 Years Smoked: 30 Second Hand Smoke Exposure: Yes Substance Use Type: Heroin Advance Directives: Yes Advance Directives on File: Yes Advance Directives Date on File: 10/03/23 Do you have a plan to hurt others: No Plan service: No Physical Exam ED Vital Signs: Vital Signs - 24 hr 03/07/25 21:36 Temperature 97.5 F Pulse Rate 60 Respiratory Rate 16 Blood Pressure 112/67 Pulse Oximetry 98 Oxygen Delivery Method Room Air BMI result Body Mass Index 25.8 Appearance: Alert. Oriented X3. No acute distress. Eyes: no pallor or icterus ENT: Pharynx normal. Oral Mucosa moist Neck: Normal inspection. Neck supple. CVS: Normal heart rate and rhythm. Pulses normal. Respiratory: No respiratory distress. Equal air entry bilateral, no wheezing/rales/rhonchi Abd: soft, not tender Skin: Skin warm and dry. Normal skin color. Normal skin turgor. Extremities: No lower extremity edema, no calf tenderness Neuro: Oriented X 3. Medical Decision Making Medical Decision Making MDM Narrative: Patient is asking for food on arrival no signs of opiate withdrawal noticed vitals are stable patient left without treatment Discharge Plan Discharge Clinical Impression: Opioid use disorder Patient Disposition: Left W/O Completing Treatment Prescriptions: No Action clonidine HCl 0.1 mg tablet 0.1 mg PO BID ondansetron HCl 4 mg tablet 8 mg PO BID quetiapine 100 mg tablet 100 mg PO BEDTIME baclofen 20 mg tablet 20 mg PO TID pantoprazole 40 mg tablet,delayed release (DR/EC) 40 mg PO BID folic acid 1 mg tablet 1 mg PO DAILY escitalopram oxalate 10 mg tablet 10 mg PO DAILY lactulose 10 gram/15 mL solution 30 ml PO TID pregabalin 200 mg capsule 200 mg PO TID ramelteon [Rozerem] 8 mg tablet 8 mg PO BEDTIME quetiapine 50 mg tablet 50 mg PO BEDTIME methadone [Methadone Intensol] 10 mg/mL Concentrate 140 mg PO DAILY Discharge Date/Time: 03/07/25 22:09
== END 2025-03-07 22:09 | disposition left against medical advice (07) ==
LOC: HO.ED 21:59
PROVIDERS: Emergency Provider Internal Medicine
DX: F11.90 Opioid use, unspecified, uncomplicated (principal)
CPT/HCPCS: 99281

== ENCOUNTER 2025-05-16 18:28 | Emergency (ER) | payer OTHER, SELFPAY ==
[2025-05-16 18:35] VITALS: BP 106/72; BP 128/82; PULSE 64; PULSE 77; RESP 15; TEMP 37.1; O2SAT 89; O2SAT 97; BMI 22.7
[2025-05-16 18:48] VITALS: PULSE 72; O2SAT 97
--- NOTE | 2025-05-16 19:52 | ED.GENADULT ---
HPI - General Adult General Chief complaint: ETOH/Substance Use Stated complaint: Used 1 bag of heroine, no narcan given Time Seen by Provider: 05/16/25 18:30 History of Present Illness HPI narrative: Patient is a 44-year-old female presented today admits to using 1 bag of heroin. Patient did not get any Narcan prior to arrival. Has no complaints is hungry right now. Related Data Home Medications ?Medication ?Instructions ?Recorded ?Confirmed baclofen 20 mg tablet 20 mg PO TID 03/27/24 03/27/24 clonidine HCl 0.1 mg tablet 0.1 mg PO BID 03/27/24 03/27/24 escitalopram oxalate 10 mg tablet 10 mg PO DAILY 03/27/24 03/27/24 folic acid 1 mg tablet 1 mg PO DAILY 03/27/24 03/27/24 lactulose 10 gram/15 mL oral 30 ml PO TID 03/27/24 03/27/24 solution ondansetron HCl 4 mg tablet 8 mg PO BID 03/27/24 03/27/24 pantoprazole 40 mg tablet,delayed 40 mg PO BID 03/27/24 03/27/24 release pregabalin 200 mg capsule 200 mg PO TID 03/27/24 03/27/24 quetiapine 100 mg tablet 100 mg PO BEDTIME 03/27/24 03/27/24 quetiapine 50 mg tablet 50 mg PO BEDTIME 03/27/24 03/27/24 ramelteon 8 mg tablet (Rozerem) 8 mg PO BEDTIME 03/27/24 03/27/24 methadone 10 mg/mL oral 140 mg PO DAILY 11/25/24 02/21/25 concentrate (Methadone Intensol) Allergies Allergy/AdvReac Type Severity Reaction Status Date / Time No Known Allergies Allergy Verified 05/16/25 18:42 Review of Systems Review of Systems: No chest pain or shortness breath no systemic complaints Yes all other systems are reviewed and are negative PMFSH Past Medical History Attestation statement: The following information was validated with the patient. Medical History Opioid use disorder Bacteremia Polysubstance use disorder Hepatitis C antibody positive in blood Cocaine abuse Heroin abuse PTSD (post-traumatic stress disorder) Depression Anxiety Opiate abuse, continuous Social History Social History Household Members: Unknown / Unable to assess Housing: Unknown / Unable to assess Do you presently have visiting nurse or other home services: No Alcohol intake: never Comment: 1:1 sitter Patient Tobacco Use Status: Tobacco use Unknown Tobacco use type: Cigarette Cigarette Packs Per Day: 1 Cigarettes Per Day: 20.0 Years Smoked: 30 Second Hand Smoke Exposure: Yes Use of substances other than those prescribed or required for medical reasons: Yes Substance Use Type: Heroin Substance Use Frequency: Daily Last Used Substance: Just Prior to Admission Any prior treatment program specific to substance use: No Advance Directives: Yes Advance Directives on File: Yes Advance Directives Date on File: 10/03/23 Do you have a plan to hurt others: No Plan service: No Physical Exam ED Vital Signs: Vital Signs - 24 hr 05/16/25 18:35 05/16/25 18:48 Temperature 98.8 F Pulse Rate 64 Respiratory Rate 15 Blood Pressure 106/72 Pulse Oximetry 89 L 97 Oxygen Delivery Method Room Air Nasal Cannula Oxygen Flow Rate 2 BMI result Body Mass Index 22.7 Appearance: Alert. Oriented X3. No acute distress. Eyes: Pupils equal, round and reactive to light. ENT: Pharynx normal. Neck: Normal inspection. Neck supple. No lymph nodes noted. No crepitus CVS: Normal heart rate and rhythm. Pulses normal. Normal S1 and S2 Respiratory: No respiratory distress. Breath sounds normal. No Wheezing. No rales Abdomen: Soft and nontender. No rigidity. No distention. good BS x4 Skin: Skin warm and dry. Normal skin color. Normal skin turgor. Extremities: No lower extremity edema. Neurovascular intact to all extremities. No Lacerations. No Rash Neuro: Oriented X 3. No motor deficit. No sensory deficit. Moving all extermities. No slurred speech Medical Decision Making Medical Decision Making MDM Narrative: Patient monitor in the emergency department for over an hour. Did not get Narcan. Ambulated well in no distress wants to go home did not want detox will given Narcan kit to take home. Patient to closely follow up on an outpatient basis. Explained to patient the need to stop using heroin Differential Diagnosis polysubstance abuse Admission/Observation Consideration of admission/observation: Escalation of care including admission/observation considered Lab Data [facility] Lab Attestation statement: I reviewed the patient's lab results. External Record Review External record reviewed: Inpatient record Chronic Conditions history of delirium history of polysubstance abuse Social Determinants Patient?s care significantly limited by Social Determinants of Health including: Alcoholism and drug addiction in family and Problems related to primary support group Discharge Plan Discharge Clinical Impression: Opioid use disorder Patient Disposition: Home, Self-Care Instructions: Narcotic Use Disorder (ED), Opioid Use Disorder (ED) Prescriptions: No Action clonidine HCl 0.1 mg tablet 0.1 mg PO BID ondansetron HCl 4 mg tablet 8 mg PO BID quetiapine 100 mg tablet 100 mg PO BEDTIME baclofen 20 mg tablet 20 mg PO TID pantoprazole 40 mg tablet,delayed release (DR/EC) 40 mg PO BID folic acid 1 mg tablet 1 mg PO DAILY escitalopram oxalate 10 mg tablet 10 mg PO DAILY lactulose 10 gram/15 mL solution 30 ml PO TID pregabalin 200 mg capsule 200 mg PO TID ramelteon [Rozerem] 8 mg tablet 8 mg PO BEDTIME quetiapine 50 mg tablet 50 mg PO BEDTIME methadone [Methadone Intensol] 10 mg/mL Concentrate 140 mg PO DAILY Referrals: [facility] [Physician, Medical] - 05/19/25 Print Language: Ukrainian
[2025-05-16 20:16] VITALS: BP 142/99; PULSE 68; RESP 20; TEMP 37.1; O2SAT 98
== END 2025-05-16 20:17 | disposition home or self-care (01) ==
PROVIDERS: Emergency Provider Emergency Medicine Emergency Medical Services
DX: F11.10 Opioid abuse, uncomplicated (principal); Z71.51 Drug abuse counseling and surveillance of drug abuser
CPT/HCPCS: 99282; 99284

== ENCOUNTER 2025-06-06 15:10 | Emergency (ER) | payer OTHER, SELFPAY ==
[2025-06-06 15:41] VITALS: BP 120/72; BP 123/77; PULSE 79; PULSE 87; RESP 16; TEMP 36.9; O2SAT 94; O2SAT 99; BMI 24.9
--- NOTE | 2025-06-06 16:00 | PC.NURSE ---
pt was given nasal narcan 4mg by PD after suspected overdose. on arrival pt alert, oriented, walks with steady gait. changed over in bathroom. belonging secured [place] bottom shelf. changed over the green ofe. denies SI/HI. states she is cold, tired, hungry.
[2025-06-06 18:09] VITALS: PULSE 89; RESP 20; O2SAT 99
--- NOTE | 2025-06-06 18:39 | ED.GENADULT ---
HPI - General Adult General Chief complaint: Overdose Stated complaint: overdose 1 bag heroin Time Seen by Provider: 06/06/25 18:11 Source: patient Limitations: no limitations History of Present Illness ED Provider: Erika Buck PA-C HPI narrative: 44-year-old female with a history of anxiety, depression, PTSD, hep C, polysubstance abuse on methadone, who presents after overdose. Patient was found by EMS unresponsive on the street, PD administered 4 mg of intranasal Narcan. Patient responded to the intervention. Patient admits to using a bag of heroin. She denies SI or HI. She is interested in detox. Related Data Home Medications ?Medication ?Instructions ?Recorded ?Confirmed baclofen 20 mg tablet 20 mg PO TID 03/27/24 03/27/24 clonidine HCl 0.1 mg tablet 0.1 mg PO BID 03/27/24 03/27/24 escitalopram oxalate 10 mg tablet 10 mg PO DAILY 03/27/24 03/27/24 folic acid 1 mg tablet 1 mg PO DAILY 03/27/24 03/27/24 lactulose 10 gram/15 mL oral 30 ml PO TID 03/27/24 03/27/24 solution ondansetron HCl 4 mg tablet 8 mg PO BID 03/27/24 03/27/24 pantoprazole 40 mg tablet,delayed 40 mg PO BID 03/27/24 03/27/24 release pregabalin 200 mg capsule 200 mg PO TID 03/27/24 03/27/24 quetiapine 100 mg tablet 100 mg PO BEDTIME 03/27/24 03/27/24 quetiapine 50 mg tablet 50 mg PO BEDTIME 03/27/24 03/27/24 ramelteon 8 mg tablet (Rozerem) 8 mg PO BEDTIME 03/27/24 03/27/24 methadone 10 mg/mL oral 140 mg PO DAILY 11/25/24 06/07/25 concentrate (Methadone Intensol) Allergies Allergy/AdvReac Type Severity Reaction Status Date / Time No Known Allergies Allergy Verified 06/06/25 15:43 Review of Systems Review of Systems: Yes all other systems are reviewed and are negative Constitutional: Constitutional: Denies fatigue and Denies fever(s) Cardiovascular: Cardiovascular: Denies chest pain and Denies dyspnea Respiratory: Respiratory: Denies dyspnea Gastrointestinal: Gastrointestinal: Denies abdominal pain, Denies diarrhea, Denies nausea and Denies vomiting Endocrine: Endocrine: Denies fatigue PMFSH Past Medical History Attestation statement: The following information was validated with the patient. Medical History Opioid use disorder Bacteremia Polysubstance use disorder Hepatitis C antibody positive in blood Cocaine abuse Heroin abuse PTSD (post-traumatic stress disorder) Depression Anxiety Opiate abuse, continuous Social History Social History Household Members: Unknown / Unable to assess Housing: Unknown / Unable to assess Do you presently have visiting nurse or other home services: No Alcohol intake: never Comment: 1:1 sitter Patient Tobacco Use Status: Tobacco use Unknown Tobacco use type: Cigarette Cigarette Packs Per Day: 1 Cigarettes Per Day: 20.0 Years Smoked: 30 Second Hand Smoke Exposure: Yes Use of substances other than those prescribed or required for medical reasons: Yes Substance Use Type: Heroin Advance Directives: Yes Advance Directives on File: Yes Advance Directives Date on File: 10/03/23 service: No Physical Exam ED Vital Signs: Vital Signs - 24 hr 06/06/25 15:41 06/06/25 18:09 06/07/25 00:00 Temperature 98.4 F 98.0 F Pulse Rate 79 89 70 Respiratory Rate 16 20 16 Blood Pressure 123/77 128/78 Pulse Oximetry 94 99 95 Oxygen Delivery Method Room Air Room Air Room Air 06/07/25 08:02 Temperature 98.4 F Pulse Rate 76 Respiratory Rate 18 Blood Pressure 126/82 Pulse Oximetry 99 Oxygen Delivery Method Room Air BMI result Body Mass Index 24.9 Const Other: Alert, appears older than stated age Orientation/consciousness: patient oriented x3 Resp Effort & Inspection: normal respiratory effort Cardio Other: Normal peripheral perfusion Skin Other: Warm dry no rash Neuro General: patient oriented x3, gait normal, no focal motor deficits and CN's II-XI intact bilaterally Psych Other: Cooperative Course Reevaluation(s) Reevaluation #1: Time: 21:57 Date: 06/06/25 Provider: RAGHAV Sasmon Patient in physician observation for psychiatric evaluation.? No acute events reported overnight. No current complaints. VS stable.? Patient is in bed search status/pending CARE team evaluation. Will continue to monitor. Time: 21:57 Reevaluation #2: Time: 08:14 Date: 06/07/25 Provider: Hailey Ledesma DO Physician observation ended at 814am. Patient has been cleared for discharge by the CARE team. Will follow up as an outpatient. going to [place] [facility] [place] Medications Administered Discontinued Medications Generic Name Dose Route Start Last Admin Trade Name Erik PRN Reason Stop Dose Admin Methadone HCl 140 mg 06/07/25 07:20 06/07/25 07:26 Methadone Hcl 20 Mg/2 Ml Oral.Conc PO 06/07/25 07:21 140 mg ONCE ONE Administration Potassium Chloride 40 meq 06/06/25 21:55 06/06/25 22:01 Potassium Chloride Er 20 Meq Tab.Er.Prt PO 06/06/25 21:56 40 meq ONCE ONE Administration Medical Decision Making Medical Decision Making MDM Narrative: 44-year-old female with a history of anxiety, depression, PTSD, hep C, polysubstance abuse on methadone, who presents after overdose. Patient was found by EMS unresponsive on the street, PD administered 4 mg of intranasal Narcan. Patient responded to the intervention. Patient admits to using a bag of heroin. She denies SI or HI. She is interested in detox. Problem: Polysubstance abuse, mental illness History: Per patient I have considered the following differential diagnoses: SI, HI, decompensated psychiatric illness, drug/alcohol intoxication, need for detox Plan: Patient has been monitored for a period of 3 hours, she has had no respiratory decompensation, she has been eating and drinking. She is requesting detox. We will place a consult for recovery engineer. We will screen basic labs, drug screen and ethanol. She will be held over night for placement I have independently reviewed the following tests: Labs: No leukocytosis, not anemic, potassium subtly low at 3.2, no additional electrolyte abnormality noted, U tox positive for opiates, methadone, fentanyl, cocaine, marijuana ethanol less than 10, not Lab Data 06/06/25 19:24 06/06/25 19:24 Labs: Lab Results 06/06/25 Range/Units 19:24 WBC 7.6 (4.8-10.8) X10*3/uL RBC 3.94 L (4.20-5.50) X10*6/uL Hgb 11.4 L (12.0-16.0) g/dl Hct 34.8 L (37.0-47.0) % MCV 88.3 (80.0-98.0) fL MCH 28.9 (27.0-33.0) pg MCHC 32.8 (31.0-35.0) g/dl RDW 14.4 (11.0-16.0) % Plt Count 205 (160-400) X10*3/uL MPV 9.1 L (9.4-12.3) fL Immature Gran % (Auto) 0.5 H (0.0-0.4) % Neut % (Auto) 78.4 H (45-73) % Lymph % (Auto) 13.5 L (20-40) % Ford % (Auto) 7.0 (2-11) % Eos % (Auto) 0.1 (0-4) % Baso % (Auto) 0.5 (0-2) % Lymph # (Auto) 1.0 L (1.2-4.9) X10*3/uL Ford # (Auto) 0.5 (0.1-1.2) X10*3/uL Eos # (Auto) 0.0 (0.0-0.4) X10*3/uL Baso # (Auto) 0.0 (0.0-0.2) X10*3/uL Abs Immat Gran (auto) 0.04 H (0.00-0.03) X10*3/uL Absolute Neuts (auto) 6.0 (2.0-8.3) x10*3/uL Absolute Nucleated RBC 0.000 (0.0-0.012) X10*3/uL Nucleated RBC % (auto) 0.0 (0.0-0.2) /100WBC Sodium 139 (135-145) mmol/L Potassium 3.2 L (3.3-5.1) mmol/L Chloride 105 (96-108) mmol/L Carbon Dioxide 26 (22-29) mmol/L Anion Gap 11 L (12-20) BUN 12 (9-16) mg/dL Creatinine 0.66 (0.5-1.4) mg/dL Estim Creat Clear Calc 88.4 Estimated GFR > 60 Random Glucose 115 (60-115) mg/dL Calcium 9.3 (8.4-10.2) mg/dL Magnesium 2.1 (1.6-2.6) mg/dL Total Bilirubin 0.4 (0.0-1.0) mg/dL AST 51 H (5-31) U/L ALT 43 H (0-31) U/L Alkaline Phosphatase 66 (39-117) U/L Total Protein 8.2 H (6.5-8.0) g/dL Albumin 3.7 (3.5-5.0) g/dL Beta HCG, Quant < 2 mIU/mL Salicylates < 5.0 L (15-30) mg/dL Urine Opiates Screen POSITIVE H (Not Detect) Ur Buprenorphine Scrn Not Detected (Not Detect) ng/mL Ur Oxycodone Screen Not Detected (Not Detect) ng/mL Urine Methadone Screen Positive H (Not Detect) ng/mL Urine Fentanyl Screen POSITIVE H (Not Detect) Acetaminophen < 3 (<30) mcg/mL Ur Barbiturates Screen Not Detected (Not Detect) Ur Phencyclidine Scrn Not Detected (Not Detect) Ur Amphetamines Screen Not Detected (Not Detect) U Benzodiazepines Scrn Not Detected (Not Detect) Urine Cocaine Screen POSITIVE H (Not Detect) U Marijuana (THC) Screen POSITIVE H (Not Detect) Ethyl Alcohol < 10 mg/dL Discharge Plan Discharge Clinical Impression: Polysubstance abuse Patient Disposition: Home, Self-Care Instructions: Polysubstance Use Disorder (ED) Additional Instructions: Opiate use disorder You were seen in our Emergency Department today for treatment of opiate use disorder. You may have been dosed with medication for opiate use disorder (MOUD) in the form of suboxone or methadone. You may experience feeling some withdrawal symptoms and this is normal. The? dose in the Emergency Department is a starting dose and meant to be titrated up once you follow up with a clinic. Please do not feel discouraged, it is a process. The nurse has reviewed with you where to follow up and what information to bring with you, to continue treatment. You also may have been given naloxone (narcan) to take home with you. This medication is used to potentially treat opiate overdose. If you decide you want to stop or cut down on how much you?re using, you can call or walk into our outpatient Addiction Treatment office: [facility] (M-F 9am-5p) [address] [place] [address], [address] [phone] You may have been provided with safer injection?items, please take time to take care of YOU and your health. Use new supplies whenever possible to lessen the chances of infections and other illnesses.? ?If you need more supplies, please go [facility],? [address] [place], [place] you can call or text to coordinate delivery of safer supplies. You were also provided a list of several treatment providers in the area.? If you experience any worsening symptoms you cannot control please return to the ED or call 911. Please follow up at your next appointment. Things to look out for are fevers, chest pain, shortness of breath, severe pain, dizziness, fainting or any other concerns. Prescriptions: No Action clonidine HCl 0.1 mg tablet 0.1 mg PO BID ondansetron HCl 4 mg tablet 8 mg PO BID quetiapine 100 mg tablet 100 mg PO BEDTIME baclofen 20 mg tablet 20 mg PO TID pantoprazole 40 mg tablet,delayed release (DR/EC) 40 mg PO BID folic acid 1 mg tablet 1 mg PO DAILY escitalopram oxalate 10 mg tablet 10 mg PO DAILY lactulose 10 gram/15 mL solution 30 ml PO TID pregabalin 200 mg capsule 200 mg PO TID ramelteon [Rozerem] 8 mg tablet 8 mg PO BEDTIME quetiapine 50 mg tablet 50 mg PO BEDTIME methadone [Methadone Intensol] 10 mg/mL Concentrate 140 mg PO DAILY Interventions: ED Discharge Assessment Last Done: 06/07/25 08:58 Discharge Date/Time: 06/07/25 10:02 Print Language: Yi
--- NOTE | 2025-06-06 19:15 | PC.NURSE ---
assumed care for pt at this time. pt noted to be resting in stretcher and eating jello. pt updated on plan of care, pending lab draw. plan of care ongoing
[2025-06-06 19:31] LABS: MANUAL DIFF FLAG NO
[2025-06-06 19:32] LABS: Hematocrit 34.8 % (37.0-47.0); Hemoglobin 11.4 g/dl (12.0-16.0); Imm Gran Abs Auto 0.04 X10*3/uL (0.00-0.03); Imm Gran Pct Auto 0.5 % (0.0-0.4); Lymphocytes Absolute Auto 1.0 X10*3/uL (1.2-4.9); Mean Corpuscular HGB Conc 32.8 g/dl (31.0-35.0); Mean Corpuscular Hemoglobin 28.9 pg (27.0-33.0); Mean Corpuscular Volume 88.3 fL (80.0-98.0); NRBC Abs Auto 0.000 X10*3/uL (0.0-0.012); NRBC Pct Auto 0.0 /100WBC (0.0-0.2); Platelet Count 205 X10*3/uL (160-400); Red Blood Count 3.94 X10*6/uL (4.20-5.50); White Blood Count 7.6 X10*3/uL (4.8-10.8)
[2025-06-06 19:42] LABS: Cannabinoid Screen Urine POSITIVE (Not Detect)
[2025-06-06 19:50] LABS: Acetaminophen LAB < 3 mcg/mL (<30); Salicylate < 5.0 mg/dL (15-30)
[2025-06-06 19:57] LABS: Alanine Aminotransferase 43 U/L (0-31); Albumin Level 3.7 g/dL (3.5-5.0); Alkaline Phosphatase 66 U/L (39-117); Anion Gap 11 (12-20); Aspartate Amino Transferase 51 U/L (5-31); Blood Urea Nitrogen 12 mg/dL (9-16); Calcium 9.3 mg/dL (8.4-10.2); Carbon Dioxide 26 mmol/L (22-29); Chloride 105 mmol/L (96-108); Creatinine Clr Calc Pharmacy 88.4; Estimated Glomerular Filt Rate > 60; Magnesium 2.1 mg/dL (1.6-2.6); Potassium 3.2 mmol/L (3.3-5.1); Sodium 139 mmol/L (135-145); Total Protein 8.2 g/dL (6.5-8.0)
[2025-06-06] MEDS: Potassium Chloride ER 20 MEQ TAB.ER.PRT 40 MEQ PO (22:01)
[2025-06-07] VITALS: BP 128/78; PULSE 70; RESP 16; TEMP 36.7; O2SAT 95
--- NOTE | 2025-06-07 06:37 | PC.NURSE ---
verified pts methadone dose of 140mg/day with [facility] in [facility] on [facility]. Verified with HARISH Loomis. Faxed verification to pharmacy, see pts chart.
--- NOTE | 2025-06-07 06:40 | HE.PHANOTE ---
Re Methadone received verification from RN. Pt gets 140mg daily from [facility], had take home bottles to last until 06/06/25.
[2025-06-07] MEDS: methADONE HCl 20 MG/2 ML ORAL.CONC 140 MG PO (07:26)
[2025-06-07 08:02] VITALS: BP 126/82; PULSE 76; RESP 18; TEMP 36.9; O2SAT 99
--- NOTE | 2025-06-07 08:05 | MHC.CARE ---
T/w spoke to jaswant about options this morning, discussed that the best bet for quick placement this morning is either via Lyft to [facility] or [facility]. Patient elected to go to [facility].
[2025-06-07 08:58] VITALS: BP 126/82; PULSE 76; RESP 18; TEMP 36.9; O2SAT 99
== END 2025-06-07 10:02 | disposition home or self-care (01) ==
PROVIDERS: Physician Assistant Medical; Emergency Provider Emergency Medicine; PCP Internal Medicine
DX: T40.1X1A Poisoning by heroin, accidental (unintentional), initial encounter (principal); R40.4 Transient alteration of awareness; R10.2 Pelvic and perineal pain; F17.210 Nicotine dependence, cigarettes, uncomplicated; Y92.9 Unspecified place or not applicable; Z79.899 Other long term (current) drug therapy; Z51.81 Encounter for therapeutic drug level monitoring; Z71.51 Drug abuse counseling and surveillance of drug abuser
CPT/HCPCS: 36415; 80053; 80143; 80179; 80307; 83735; 84702; 85025; 99285; S9485

== ENCOUNTER 2025-06-15 22:43 | Inpatient (IN) | payer OTHER, SELFPAY ==
--- NOTE | ~2025-06-15 | CT_ITS ---
EXAMINATION: CT THORACIC SPINE CLINICAL INFORMATION: bacteremia, back pain; h/o thoracic spine surgery COMPARISON: 11/23/2023 and March 27, 2024 TECHNIQUE: Axial CT imaging was performed from the mid cervical to upper lumbar spine. This CT examination was performed using dose optimization techniques as appropriate, variously including the following: *Automated exposure control *Adjustment of mA and/or kV according to patient size (this includes techniques or standardized protocols for targeted exams where dose is matched to indication/reason for exam; i.e. extremities or head) *Use of iterative reconstruction technique DLP: 813 mGY*cm FINDINGS: Since prior examination, the spinous been stabilized with posterior pedicle screws and rods. Screws are placed at T3, T4, T5, T8, T9, T10, and T11 bilaterally. Hardware is intact without loosening. Left screw tip at T3 extends into the T3-4 disc space. The T7 vertebral body has been the right and. There is new bridging bone anteriorly between T6 and T8. There is a mild superior endplate compression fracture of T11 that was present on CT of the chest March 27, 2024. There is new moderate superior endplate compression fracture of T12 with 50% loss of height. There is a spicule of bone formation extending superiorly from the anterior T12 vertebral body across the anterior disc annulus. This is new when compared with March 27, 2024. The superior endplate demonstrates sclerosis and somewhat linear lucency. The cortical margin of inferior T11 is intact. Evaluation of the spinal canal at moderately limited related to a hardening artifact secondary to metal hardware. There is a moderate right and small left layering pleural effusion with compressive atelectasis. At the T6-T8 left paraspinal space, the effusion appears higher density with a convex margin measuring 1.5 cm thick. This was not evident on the 2023 CT. Along the anterior right aspect at T6-T8, in the paraspinal pleural space, there is a 14 mm enhancing circular lesion with central fluid signal that was present in 2023. The inferior endplate of T6 was previously well-defined and sclerotic. On the current examination, it appears serrated and ill-defined. There is a healed posterior right sixth rib fracture. This is new compared to 2022. The spinal canal is poorly demonstrated related to metal artifacts. An epidural process/abscess cannot be ruled in or out. Visualized mediastinum and upper abdomen are unremarkable. CT/CT thoracic spine w IV con IMPRESSION: Again seen are postoperative changes with stabilization of the thoracic spine with posterior pedicle screws and rods placed between T3 and T11 following debridement/resection of remaining elements of T7 following discitis and osteomyelitis is present in October 2023. There is new soft tissue density in the left spinal or pleural space at this level (e.g. Ax CT#3 Im 61), an infectious etiology is not ruled out. Loculated 1.5 cm fluid in the right pleural/paraspinal space is similar to the most recent prior. The inferior endplate of T6 was previously well defined densely corticated. On the current examination, it is ill-defined and osteomyelitis/discitis is possible. Moderate superior endplate compression fracture of T12 has occurred since the March 2024 examination. The superior endplate of T12 shows mixed sclerosis and lucency suggesting healing. There is also minimal vacuum phenomena anteriorly in the disc space. The likelihood of infection is not entirely excluded. Bilateral layering pleural effusions, moderate on right and small left, with compressive atelectasis. No evidence of pneumonia. Fleischner guidelines were followed. Electronically signed by: Gonzalez Moyer MD 06/18/2025 02:22 PM EDT
--- NOTE | ~2025-06-15 | XR_ITS ---
EXAMINATION: XR CHEST CLINICAL INFORMATION: fever COMPARISON: January 26, 2024. TECHNIQUE: Frontal view of the chest was obtained. FINDINGS: Prominence of the interstitial markings. Pulmonary reticular pattern. No hyperinflation. No gross consolidation pleural effusion or pneumothorax. Cardiomediastinal silhouette size is mildly prominent, unchanged. Metallic hardware for a posterior thoracic fusion no fully evaluated. XR/XR chest 1V IMPRESSION: Mild interstitial edema in the correct clinical settings. Superimposed acute small airway inflammatory processes cannot be excluded. Electronically signed by: Alexandre Germain MD 06/16/2025 09:48 AM EDT
--- NOTE | ~2025-06-15 | CT_ITS ---
EXAMINATION: CT FACIAL BONES WITHOUT CONTRAST CLINICAL INFORMATION: Status post fall. COMPARISON: None available. TECHNIQUE: Contiguous axial images through the maxillofacial bones using 3 mm collimation with bone and soft tissue algorithm. Sagittal and coronal reformatted images acquired. DLP: 285.[address] examination was performed using dose optimization techniques as appropriate, variously including the following: *Automated exposure control *Adjustment of mA and/or kV according to patient size (this includes techniques or standardized protocols for targeted exams where dose is matched to indication/reason for exam; i.e. extremities or head) *Use of iterative reconstruction technique FINDINGS: Cortical irregularity in the nasal bones. Nasal septum and vomer are intact. The orbital rims, orbital fissures and orbital apices are intact. The zygomatic arcs are intact. The maxilla/pterygoid plates are intact. The mandible is intact. Temporal mandibular joints are intact. No hematoma or fluid collections in the intraconal or extraconal compartments of the orbits. The eyeballs are intact. No air-fluid levels in the paranasal sinuses. Poor dentition. Perialveolar abscesses, maxilla and mandible. Tympanic cavities and mastoid cells are aerated. Focal gas in the right midline submandibular deep fat plane and beneath the platysma at the both sides of the submandibular compartment. CT/CT facial bones wo IV con IMPRESSION: No acute fracture. Probable old traumatic deformity, nasal bones. Nonspecific subcutaneous emphysema, submandibular compartment. Poor dentition. Electronically signed by: Alexandre Germain MD 06/16/2025 09:04 AM EDT
--- NOTE | ~2025-06-15 | CT_ITS ---
CLINICAL HISTORY: IVDA; Cellulitis; R o Abscess vs Osteo CT of the left forearm with contrast. Comparison: None provided Findings: Somewhat limited evaluation due to interference from CT gantry artifact. There is increased attenuation throughout subcutaneous soft tissues of the forearm. There are few scattered foci of associated subcutaneous gas at the level of mid forearm for instance on series 5, images 24- 29. No definite loculated abscess or fluid collection. No radiodense soft tissue foreign bodies. No definite CT findings to suggest osteomyelitis. Chronic posttraumatic deformity of the distal 3rd of the radius. Impression: 1. Constellation of findings as detailed above most consistent with substantial diffuse edema versus cellulitis involving subcutaneous soft tissues of the forearm. 2. No definite drainable or loculated fluid collections although evaluation is somewhat limited due to interference from CT gantry artifact. 3. Few scattered foci of subcutaneous gas at the level of mid forearm. These may represent sites of injection however possibility of gas-forming infectious or inflammatory process can not be entirely excluded given the findings detailed above. 4. No definite CT findings to suggest osteomyelitis however contrast-enhanced MRI may be considered to evaluate this if clinically indicated. 5. Additional chronic/nonacute findings as above. This document has been electronically signed by: Fadia Rocha MD on 06/16/2025 01:52:07
--- NOTE | ~2025-06-15 | CT_ITS ---
EXAMINATION: CT HEAD WITHOUT CONTRAST CLINICAL INFORMATION: Trauma; Abrasion COMPARISON: March 27, 2024. TECHNIQUE: Contiguous axial imaging was performed from the skull base to vertex without intravenous administration of contrast. This CT examination was performed using dose optimization techniques as appropriate, variously including the following: *Automated exposure control *Adjustment of mA and/or kV according to patient size (this includes techniques or standardized protocols for targeted exams where dose is matched to indication/reason for exam; i.e. extremities or head) *Use of iterative reconstruction technique DLP: 579 mGy-cm FINDINGS: Patient's motion artifact. No acute cortical disruption in the bony calvarium or the skull base. No acute intracranial hemorrhage, mass effect, midline shift, hydrocephalus or herniation. Siddiqui-white matter differentiation is normal. There is a 10 mm peripheral calcified pineal gland. Posterior cranial fossa contents demonstrated no acute hemorrhage or gross mass effect. Calcified plaques in the cavernous supracavernous segments both ICAs. Sellar/suprasellar region demonstrated no gross masses. Craniocervical junction demonstrates normal position of the cerebellar tonsils. Poor dentition, maxilla with multiple periapical abscesses. Tympanic cavities and mastoid cells are aerated. No air-fluid levels in the included paranasal sinuses. Accessory left parotid gland.. CT/CT head/brain wo IV con IMPRESSION: No acute fracture, bony calvarium. No acute intracranial hemorrhage. Electronically signed by: Alexandre Germain MD 06/16/2025 09:08 AM EDT
--- NOTE | ~2025-06-15 | CT_ITS ---
EXAMINATION: CT CERVICAL SPINE WITHOUT CONTRAST CLINICAL INFORMATION: Status post fall. COMPARISON: April 10, 2020. TECHNIQUE: Contiguous axial images through the cervical spine using 3 mm collimation with bone and soft tissue algorithm. Sagittal and coronal reformatted images acquired. DLP: 322.[address] examination was performed using dose optimization techniques as appropriate, variously including the following: *Automated exposure control *Adjustment of mA and/or kV according to patient size (this includes techniques or standardized protocols for targeted exams where dose is matched to indication/reason for exam; i.e. extremities or head) *Use of iterative reconstruction technique FINDINGS: Patient's motion artifact. Craniocervical junction is intact with normal alignment between the occipital condyles and lateral masses of C1. Degenerative changes in the periodontal region. Incomplete fusion of the transverse processes of C1. C1 is intact. C2 is intact. C3 is intact. C4 is intact. C5 is intact. C6 is intact. C7 is intact. There is grade 1 retrolisthesis C4-5 likely degenerative. No gross prevertebral compartment hematoma. Beam hardening artifact secondary to metallic hardware of the posterior elements in the upper thoracic spine. Tympanic cavities and mastoid air cells are aerated. CT/CT cervical spine wo IV con IMPRESSION: No acute fracture or trauma-related listhesis. Fleischner guidelines were followed. Electronically signed by: Alexandre Germain MD 06/16/2025 08:50 AM EDT
[2025-06-15 22:58] VITALS: BP 122/80; PULSE 91; RESP 18; TEMP 38.4; O2SAT 95; BMI 23.5
[2025-06-15 23:41] LABS: Hematocrit 29.7 % (37.0-47.0); Hemoglobin 9.8 g/dl (12.0-16.0); Mean Corpuscular HGB Conc 33.0 g/dl (31.0-35.0); Mean Corpuscular Hemoglobin 28.9 pg (27.0-33.0); Mean Corpuscular Volume 87.6 fL (80.0-98.0); NRBC Abs Auto 0.000 X10*3/uL (0.0-0.012); NRBC Pct Auto 0.0 /100WBC (0.0-0.2); Platelet Count 316 X10*3/uL (160-400); Red Blood Count 3.39 X10*6/uL (4.20-5.50); White Blood Count 19.7 X10*3/uL (4.8-10.8)
--- NOTE | 2025-06-15 23:58 | PC.NURSE ---
Pt a difficult IV stick. Dr Pardo at bedside for ultrasound guided IV insertion.
[2025-06-15 23:59] LABS: Alanine Aminotransferase 43 U/L (0-31); Albumin Level 3.2 g/dL (3.5-5.0); Alkaline Phosphatase 80 U/L (39-117); Anion Gap 14 (12-20); Aspartate Amino Transferase 71 U/L (5-31); Blood Urea Nitrogen 20 mg/dL (9-16); Calcium 9.3 mg/dL (8.4-10.2); Carbon Dioxide 26 mmol/L (22-29); Chloride 97 mmol/L (96-108); Creatinine Clr Calc Pharmacy 81.3; Estimated Glomerular Filt Rate > 60; Magnesium 1.9 mg/dL (1.6-2.6); Potassium 4.2 mmol/L (3.3-5.1); Sodium 133 mmol/L (135-145); Total Protein 8.3 g/dL (6.5-8.0)
[2025-06-16] VITALS (32 sets, daily range): BP systolic 80–140; BP diastolic 44–73; PULSE 48–77; RESP 16–69; TEMP 36.6–37.8; O2SAT 86–97; BMI 26.4
--- NOTE | 2025-06-16 | ECG_ITS ---
Test Reason : KHOA Blood Pressure : */* mmHG Vent. Rate : 48 BPM Atrial Rate : 48 BPM P-R Int : 100 ms QRS Dur : 92 ms QT Int : 586 ms P-R-T Axes : 60 41 61 degrees QTcB Int : 523 ms Sinus bradycardia with short DC Nonspecific T wave abnormality Prolonged QT Abnormal ECG When compared with ECG of 02-Apr-2024 08:28, Vent. rate has decreased by 33 bpm T wave amplitude has decreased in Lateral leads QT has lengthened Referred By: Hazel Thomas Electronically Signed By: Parmjit Rutledge
[2025-06-16 00:01] LABS: Band Neutrophils Percent 7 % (3-5); Lymphocytes Absolute Manual 0.8 X10*3/uL (1.2-4.9); Lymphocytes Percent Manual 4 % (20-40); Monocytes Absolute Manual 1.0 X10*3/uL (0.1-1.2); Monocytes Percent Manual 5 % (2-11); Neutrophils Absolute Manual 17.9 X10*3/uL (2.0-8.3); Neutrophils Percent Manual 84 % (45-73)
[2025-06-16 00:02] LABS: Dohle Bodies PRESENT; RBC Morphology NORMAL; Toxic Granulation PRESENT; Toxic Vacuolation PRESENT
[2025-06-16 00:07] LABS: Troponin-I High Sensitivity < 2.7 ng/L (<3.5-17.0)
--- NOTE | 2025-06-16 00:08 | ED_ITS ---
HPI - Wound/Laceration General Chief Complaint: Wound/Laceration Stated Complaint: Cellulitis on L arm/back pain Time Seen by Provider: 06/15/25 23:38 Source: patient Mode of arrival: ambulatory Limitations: no limitations History of Present Illness ED Provider: Balbir AVILEZ HPI narrative: The patient is a 44-year-old female with history of IVDA presenting to the ED for evaluation of severe swelling, erythema, and pain of the left forearm. Patient also reports generalized body aches with nausea. Patient also reports she fell 2 nights ago and struck her face, arrives with a abrasions to the nose and forehead. Patient reports last using cocaine, heroin, and methadone today. Patient arrives to the ED febrile at 101.2. The patient denies associated chest pain, pleurisy, shortness of breath, vomiting, diarrhea, urinary symptoms, or recent sick contacts. The patient states she has not used in the left forearm in the past week, is unable to recall if there is any potential foreign body in the affected forearm. Related Data Home Medications ?Medication ?Instructions ?Recorded ?Confirmed methadone 10 mg/mL oral 140 mg PO DAILY 11/25/24 concentrate (Methadone Intensol) Allergies Allergy/AdvReac Type Severity Reaction Status Date / Time No Known Allergies Allergy Verified 06/15/25 23:03 Review of Systems 2 Review of Systems: Yes all other systems are reviewed and are negative PMFSH Past Medical History Medical History Opioid use disorder Bacteremia Polysubstance use disorder Hepatitis C antibody positive in blood Cocaine abuse Heroin abuse PTSD (post-traumatic stress disorder) Depression Anxiety Opiate abuse, continuous Social History Social History Household Members: None Housing: Homeless Do you presently have visiting nurse or other home services: No Alcohol intake: never Comment: 1:1 sitter Patient Tobacco Use Status: Current everyday Tobacco user Tobacco use type: Cigarette Cigarette Packs Per Day: 1 Cigarettes Per Day: 20.0 Years Smoked: 30 Second Hand Smoke Exposure: Yes Substance Use Type: Crack/Cocaine and Heroin Advance Directives Date on File: 10/03/23 service: No Physical Exam 2 Vital Signs: Vital Signs: Last Vital Signs Temp 97.4 F 06/18/25 03:13 Pulse 52 06/18/25 03:13 Resp 18 06/18/25 03:13 BP 161/88 H 06/18/25 03:13 Pulse Ox 90 L 06/18/25 03:13 O2 Del Method Room Air 06/18/25 03:13 O2 Flow Rate 1 06/16/25 14:54 BMI result Body Mass Index 23.5 CONSTITUTIONAL: The patient appears chronically ill, unkempt, but otherwise in no acute distress. Vital signs as documented. HEAD: There are scabbed abrasions noted to the forehead and nose, no open injury or active bleeding, head is otherwise Atraumatic, normocephalic. Of note age of scabbing appears inconsistent with reported fall within the last 48 hours. EYES: EOMs intact, pupils equal round and reactive to light, conjunctiva clear, no exudate. ENT: Nares patent, no discharge. Airway patent, no audible stridor, visible mucosa is pink and moist without noted lesions. NECK: Trachea is midline, no obvious masses or gross abnormalities. CHEST: Symmetric movement, normal appearance. LUNGS: LS present and CTAB, no w/r/r. Non-labored work of breathing. CARDIAC: Regular Rhythm, S1/S2 appreciated, no murmurs, rubs or gallops. ABDOMEN: Abdomen soft and non-tender x4 quadrants, no palpable masses or organomegaly. : Deferred. EXTREMITIES: The left forearm demonstrates near circumferential erythema, warmth, and tenderness with nonpitting edema. Compartments are firm but not hard, distal CSM is intact with 2+ radial pulse. There are multiple excoriated ulcerations noted to the bilateral lower extremities in various stages of healing. No evidence of associated cellulitis of the lower extremities. The patient moves all other extremities spontaneously without reported pain. NEURO: Alert and oriented x3, CN II-XII intact. Cerebellar Functioning intact. No sensory or motor deficits. Speech clear and appropriate. PSYCH: normal affect, appropriate eye contact, fluid speech, with appropriate response to questioning. No reported suicidality or homicidality. SKIN: Warm, dry, color appropriate, normal turgor. No other rashes noted. Course Reevaluation(s) Reevaluation #1: 07:00 the case was signed out to me by Dr. Clay's, patient presented with a left arm redness and swelling, suspect sepsis, lactic acid is normal waiting for surgical evaluation. She got so far 1 L of fluids we will give him 1 L of LR. I placed another line under ultrasound-guided in the right forearm 20 gauge long catheter. At this point we are waiting for surgical evaluation possible ICU admission Time: 07:58 Reevaluation #2: I gave the patient another LR to complaint of the bolus, she is off norepinephrine the blood pressure is holding discussed with Dr. Nancy clay to admit to [facility], case will discussed with Dr. Leodan Nails accepted to [facility] Time: 09:46 Medications Administered Generic Name Dose Route Start Last Admin Trade Name Freq PRN Reason Stop Dose Admin Acetaminophen 650 mg 06/16/25 09:58 06/18/25 00:11 Acetaminophen 325 Mg Tablet PO 650 mg Q6H PRN Administration Pain, Mild 1-3,fever,headache Enoxaparin Sodium 40 mg 06/17/25 09:30 06/17/25 08:55 Enoxaparin Sodium 40 Mg/0.4 Ml Syringe SUBCUT Not Given Q24H ANA Hydromorphone HCl 1 mg 06/17/25 10:45 06/18/25 03:26 Hydromorphone Hcl 1 Mg/Ml Syringe IVPUSH 1 mg Q4H PRN Administration Pain, Severe (Pain Scale 7-10) Protocol Cefazolin Sodium/Dextrose 2 gm in 50 mls @ 100 mls/hr 06/16/25 19:00 06/18/25 03:26 Ancef IV 100 mls/hr Q8H ANA Administration Melatonin 6 mg 06/16/25 09:58 06/18/25 00:13 Melatonin 3 Mg Tablet PO 6 mg BEDTIME PRN Administration Insomnia Methadone HCl 140 mg 06/17/25 10:30 06/17/25 11:13 Methadone Hcl 20 Mg/2 Ml Oral.Conc PO 140 mg DAILY ANA Administration Sodium Chloride 3 ml 06/16/25 16:00 06/17/25 22:21 0.9 % Sodium Chloride Flush 3 Ml Syringe IVFLUSH 3 ml QSHIFT ANA Administration Discontinued Medications Generic Name Dose Route Start Last Admin Trade Name Freq PRN Reason Stop Dose Admin Acetaminophen 975 mg 06/15/25 23:38 06/16/25 00:12 Acetaminophen 325 Mg Tablet PO 06/15/25 23:39 975 mg ONCE ONE Administration Hydromorphone HCl 1 mg 06/16/25 13:49 06/17/25 08:50 Hydromorphone Hcl 1 Mg/Ml Syringe IVPUSH 1 mg Q3H PRN Administration Pain, Severe (Pain Scale 7-10) Protocol Cefazolin Sodium/Dextrose 2 gm in 50 mls @ 100 mls/hr 06/15/25 23:38 06/16/25 00:41 Ancef IV 06/16/25 00:07 Infused ONCE ONE Infusion Sodium Chloride 1,641 mls @ 1,641 mls/hr 06/16/25 00:04 06/16/25 01:40 Ns 30 ml/kg infuse over 1 hr (1641 ml) 06/16/25 01:03 Infused IV Infusion .Q1H STA Piperacillin Sod/Tazobactam 50 mls @ 100 mls/hr 06/16/25 00:45 06/16/25 01:44 Sod 3.375 gm/ Sodium Chloride IV 06/16/25 01:14 Infused ONCE ONE Infusion Sodium Chloride 1,000 mls @ 999 mls/hr 06/16/25 02:45 06/16/25 04:00 Ns IV 06/16/25 03:45 Infused .Q1H1M ANA Infusion Albumin Human 100 mls @ 133.333 mls/hr 06/16/25 03:00 06/16/25 04:48 Kedbumin 25 % IV 06/16/25 04:44 Infused Q1H ANA Infusion Norepinephrine Bitartrate 8 mg in 250 mls @ 0 mls/hr 06/16/25 06:00 06/16/25 10:44 Levophed IVCONT Infused .Q0M ANA Titration Protocol Per Protocol Vancomycin HCl 1,250 mg/ 250 mls @ 166.667 mls/hr 06/16/25 05:56 06/16/25 09:30 Sodium Chloride IV 06/16/25 07:25 Infused ONCE ONE Infusion Clindamycin Phosphate 600 mg in 50 mls @ 100 mls/hr 06/16/25 07:07 06/16/25 08:37 Cleocin IV 06/16/25 07:36 Infused ONCE ONE Infusion Lactated Ringer's 1,000 mls @ 999 mls/hr 06/16/25 08:15 06/16/25 09:30 Lr IV 06/16/25 09:15 Infused .Q1H1M ANA Infusion Lactated Ringer's 1,000 mls @ 75 mls/hr 06/16/25 09:45 06/17/25 11:10 Lr IVCONT Infused .[id number] ANA Infusion Vancomycin HCl 1,000 mg/ 270 mls @ 270 mls/hr 06/16/25 10:00 06/16/25 10:11 Sodium Chloride IV Not Given Q12H ANA Iohexol 85 ml 06/16/25 00:50 06/16/25 00:51 Iohexol 350 Mg/Ml 100 Ml Infus..Btl IV 06/16/25 00:51 85 ml ONCE ONE Administration Medical Decision Making Medical Decision Making [facility] Narrative: 12:58 AM 06/16/2025 (Mitesh AVILEZ): The patient is a 44-year-old female with history of IVDA presenting to the emergency department for evaluation of cellulitis versus abscess of the left forearm which has been developing over the past week. The patient also reports generalized diffuse body pain, last use of cocaine, heroin, and methadone today. Patient presenting to the ED febrile at 101.2. The patient also reports she fell 2 nights ago, arrives to the ED with abrasions of the nose and forehead, however on exam patient has abrasions appear scabbed and appear older than a 48 hour old injury. Blood cultures, lactic acid, IV fluid hydration, and empiric antibiotics were ordered. Patient was ordered for a CT with contrast of the left forearm to rule out foreign body, osteomyelitis, gas-forming infection, or abscess. Upon reassessment the patient was also ordered for CT of the head, neck, and facial bones due to her reported fall, however unfortunately the patient's CT with contrast of the forearm was completed prior to this provider's ordering of the noncontrast CTs. The orders will remain and we will send the patient for CT head, neck, and face 6 hours after administration of contrast. The patient's laboratory evaluation has begun resulting and shows white count of 19.7 with 7% bands/left shift, there is moderate anemia but is not significantly changed from baseline and does not meet the transfusion threshold. CMP shows no significant electrolyte abnormality or LINDA. The patient is viral swab is negative, lactic acid 1.5, urinalysis is pending. We will await CT forearm to rule out need for surgery, and plan for admission for cellulitis. We will discuss pending CT imaging with hospitalist at that time. 2:06 AM 06/16/2025 (Mitesh AVILEZ): CT of the patient's forearm reveals evidence of edema versus cellulitis of the subcutaneous soft tissues. There is no drainable or loculated fluid collection noted. There is no definite CT findings of osteomyelitis. There are a few scattered foci of subcutaneous gas at the mid forearm which may represent sites of injection however gas-forming infectious process, be entirely excluded. The patient's case will be discussed with the hospitalist for admission. I received sign-out from my colleague RAGHAV Callaway -Dr. Whitney at this time is waiting to admit the patient, pending on blood pressure improvement. I was informed by the patient's nurse that the blood pressure is actually not improving despite IV fluids and antibiotics. Patient's blood pressure in the low 80s. -Levophed has been started. I discussed the patient with Dr. Cruz from the save care unit. Recommendations: Obtain CPK, obtain surgery consult for possible early necrotizing fasciitis due to CT scan findings and septic shock -so far, patient has received IV fluids, clindamycin, Zosyn, cefazolin and vancomycin -CT scans of the head cervical spine and facial bones have not been performed. Earlier today patient had a CT scan of the forearm done. To avoid any falls positive head CT for intracranial bleed, patient's CT scan can be done at 08:00. -I discussed the patient with RAGHAV Francois, the surgery team will come and consult/assess the patient. -sign-out was given to my colleague Dr. Amaro. Admission/Observation Consideration of admission/observation: Escalation of care including admission/observation considered Consult Healthcare Provider Management of the patient was discussed with: Hospitalist Lab Data MDM Lab Attestation statement: I reviewed the patient's lab results. 06/17/25 06:04 06/17/25 06:04 Labs: Lab Results 06/15/25 06/16/25 Range/Units 23:30 01:54 WBC 19.7 H (4.8-10.8) X10*3/uL RBC 3.39 L (4.20-5.50) X10*6/uL Hgb 9.8 L (12.0-16.0) g/dl Hct 29.7 L (37.0-47.0) % MCV 87.6 (80.0-98.0) fL MCH 28.9 (27.0-33.0) pg MCHC 33.0 (31.0-35.0) g/dl RDW 14.2 (11.0-16.0) % Plt Count 316 D (160-400) X10*3/uL MPV 9.0 L (9.4-12.3) fL Immature Gran % (Auto) Cancelled Neut % (Auto) Cancelled Lymph % (Auto) Cancelled [place] % (Auto) Cancelled Eos % (Auto) Cancelled Baso % (Auto) Cancelled Lymph # (Auto) Cancelled [place] # (Auto) Cancelled Eos # (Auto) Cancelled Baso # (Auto) Cancelled Abs Immat Gran (auto) Cancelled Absolute Neuts (auto) Cancelled Absolute Nucleated RBC 0.000 (0.0-0.012) X10*3/uL Nucleated RBC % (auto) 0.0 (0.0-0.2) /100WBC Neutrophils % (Manual) 84 H (45-73) % Band Neutrophils % 7 H (3-5) % Lymphocytes % (Manual) 4 L (20-40) % Monocytes % (Manual) 5 (2-11) % Abs Neuts (Manual) 17.9 H (2.0-8.3) X10*3/uL Lymphocytes # (Manual) 0.8 L (1.2-4.9) X10*3/uL Monocytes # (Manual) 1.0 (0.1-1.2) X10*3/uL Toxic Granulation PRESENT Toxic Vacuolation PRESENT Dohle Bodies PRESENT Platelet Estimate NORMAL (NORMAL) Plt Morphology Comment NORMAL RBC Morphology NORMAL Sodium 133 L (135-145) mmol/L Potassium 4.2 D (3.3-5.1) mmol/L Chloride 97 (96-108) mmol/L Carbon Dioxide 26 (22-29) mmol/L Anion Gap 14 (12-20) BUN 20 H (9-16) mg/dL Creatinine 0.70 (0.5-1.4) mg/dL Estim Creat Clear Calc 81.3 Estimated GFR > 60 Random Glucose 87 (60-115) mg/dL Lactic Acid 1.5 (0.5-2.0) mmol/L Calcium 9.3 (8.4-10.2) mg/dL Magnesium 1.9 (1.6-2.6) mg/dL Total Bilirubin 0.3 (0.0-1.0) mg/dL AST 71 H (5-31) U/L ALT 43 H (0-31) U/L Alkaline Phosphatase 80 (39-117) U/L Total Creatine Kinase 288 H (26-140) U/L Troponin I High Sens < 2.7 (<3.5-17.0) ng/L Total Protein 8.3 H (6.5-8.0) g/dL Albumin 3.2 L (3.5-5.0) g/dL Urine Color Yellow Urine Appearance Clear Urine pH 6.0 (5.0-9.0) Ur Specific [place] >= 1.030 H (1.005-1.025) Urine Protein Trace (Neg-Trace) mg/dL Urine Glucose (UA) Negative (Negative) mg/dL Urine Ketones Negative (Negative) mg/dL Urine Blood Negative (Negative) Urine Nitrite Negative (Negative) Ur Leukocyte Esterase Trace H (Negative) Urine RBC 0-2 (0-2) /HPF Urine WBC 0-5 (0-5) /HPF Ur Squamous Epith Cells 6-10 (0-2) /HPF Urine Bacteria 1+ (None Seen) Hyaline Casts 0-2 (0-2) /LPF Urine Opiates Screen POSITIVE H (Not Detect) Ur Buprenorphine Scrn Not Detected (Not Detect) ng/mL Ur Oxycodone Screen Not Detected (Not Detect) ng/mL Urine Methadone Screen Positive H (Not Detect) ng/mL Urine Fentanyl Screen POSITIVE H (Not Detect) Ur Barbiturates Screen Not Detected (Not Detect) Ur Phencyclidine Scrn Not Detected (Not Detect) Ur Amphetamines Screen Not Detected (Not Detect) U Benzodiazepines Scrn Not Detected (Not Detect) Urine Cocaine Screen POSITIVE H (Not Detect) U Marijuana (THC) Screen Not Detected (Not Detect) Influenza Type A (PCR) NEGATIVE (Negative) Influenza Type B (PCR) NEGATIVE (Negative) RSV RNA Qual (PCR) NEGATIVE (Negative) SARS-CoV-2 RNA (RT-PCR) NEGATIVE (Negative) Radiology Impression Discussion of test interpretation with radiology: I have reviewed the radiologist's reading. Radiologist Impression: CT of the left forearm with contrast. Comparison: None provided Findings: Somewhat limited evaluation due to interference from CT gantry artifact. There is increased attenuation throughout subcutaneous soft tissues of the forearm. There are few scattered foci of associated subcutaneous gas at the level of mid forearm for instance on series 5, images 24- 29. No definite loculated abscess or fluid collection. No radiodense soft tissue foreign bodies. No definite CT findings to suggest osteomyelitis. Chronic posttraumatic deformity of the distal 3rd of the radius. Impression: 1. Constellation of findings as detailed above most consistent with substantial diffuse edema versus cellulitis involving subcutaneous soft tissues of the forearm. 2. No definite drainable or loculated fluid collections although evaluation is somewhat limited due to interference from CT gantry artifact. 3. Few scattered foci of subcutaneous gas at the level of mid forearm. These may represent sites of injection however possibility of gas-forming infectious or inflammatory process can not be entirely excluded given the findings detailed above. 4. No definite CT findings to suggest osteomyelitis however contrast-enhanced MRI may be considered to evaluate this if clinically indicated. 5. Additional chronic/nonacute findings as above. This document has been electronically signed by: Fadia Rocha MD on 06/16/2025 01:52:07 Procedures Procedure Narrative Procedure Narrative: Ultrasound Guided Peripheral Intravenous Catheter Placement Indication: Intravenous Access Location: Right basilic Provider: Self I was approached by nursing staff and informed that multiple unsuccessful attempts had been made to establish IV access in the patient. The patients arm was surveyed with the ultrasound for verification of vessel collapsibility, patency, depth and caliber, as well as identification of nearby structures. The target area was prepped with chlorhexidine. A tourniquet was placed proximally on the extremity. Under real-time ultrasound guidance, an [20 G 2.25 inch AccuCath nontunneled catheter] ? was advanced into the target vein. Dark blood was visualized in the flash chamber. The catheter was easily advanced into the vein. The catheter was evacuated of air and flushed with sterile saline. The catheter was secured in place with a tegaderm. The patient tolerated the procedure well and there were no complications. Estimated Blood Loss: 1mL Total Time for Procedure: 5min Images Stored CPT: 63943; 71491 EJ/Peripheral Line Arm R: Skin Cleansed in Sterile Fashion: Yes Size (gauge): 20 IV Secured and Dressing Applied: Yes Patient Tolerated Procedure: well Additional Comments: Under ultrasound-guided cannulated the right brachial vein with 20 G catheter line secured good flash good blood return Dr Amaro Critical Care Time Critical Care Time Critical Care Time: Yes Total Critical Care Time: 60 Attestation: IV fluids ,IV AB,Hypotension ,On levophed for few hours Discharge Plan Discharge Clinical Impression: Polysubstance abuse Cellulitis of extremity Qualifiers: Site of cellulitis of extremity: upper extremity Laterality: left Qualified Code(s): L03.114 - Cellulitis of left upper limb Patient Disposition: Admitted As Inpatient Interventions: Admission Worksheet (ED) Last Done: 06/16/25 15:58 Discharge Date/Time: 06/16/25 17:48
[2025-06-16 00:17] LABS: Resp Syncy Virus RNA Qual PCR NEGATIVE (Negative); SARS COV2 PCR INHOUSE NEGATIVE (Negative)
[2025-06-16] MEDS: iohexoL 350 MG/ML 100 ML INFUS..BTL 85 ML IV (00:51)
--- NOTE | 2025-06-16 01:07 | PC.NURSE ---
Pt laying on stretcher, call ferrell in reach. Pt requesting fluids, spoke with Balbir and will need to wait till after CT results for her to eat and drink. Pt may have ice chips at this time per Balbir. Pt left arm swollen and red with multiple scabbed areas noted.
[2025-06-16 02:01] LABS: Appearance Urine Clear; Glucose Urine UA Negative (Negative); PH 6.0 (5.0-9.0); Specific Gravity - Urine >= 1.030 (1.005-1.025); UMIC TRIGGER UACC YES
[2025-06-16 02:13] LABS: Cannabinoid Screen Urine Not Detected (Not Detect)
[2025-06-16] MEDS: Albumin Human 25 % 100 ML 133.33 ML IV ×2 (03:10→04:02)
--- NOTE | 2025-06-16 06:38 | PC.NURSE ---
Vanco administration delayed due to need for an additional ultrasound guided line or central line.
--- NOTE | 2025-06-16 08:07 | P.CONGS_ITS ---
History of Present Illness Consult details Consult date: 06/16/25 <Geno Francois PA-C - Last Filed: 06/16/25 08:23> Reason for consult: other (left forearm cellulitis) <ALONZO Ruby Last Filed: 06/16/25 08:23> Narrative: 44-year-old female with PMH significant for IVDA presenting to the ED for evaluation of severe swelling, redness and pain of the left forearm. She reports this began a few days ago. She also reports generalized body aches with nausea. She reports IV drug use but has not used her left arm in a few days and denies skin popping and is unsure how she sustained all these wounds. She last used cocaine, heroin yesterday. Patient was febrile at 101.2 in the ED. Labs revealed leukocytosis of 19.8, no lactic acidosis. CT scan of the left forearm showed substantial diffuse subcutaneous edema of the forearm without definite drainable or loculated fluid collections with few scattered foci of subcutaneous gas at the level of mid forearm. She denies paresthesias, decreased sensation. < Geno Francois PA-C Last Filed: 06/16/25 08:23> Review of Systems 2 Constitutional: Constitutional: Reports fever(s) <ALONZO Ruby Last Filed: 06/16/25 08:23> Cardiovascular: Cardiovascular: Denies chest pain and Denies dyspnea < Geno Francois PA-C Last Filed: 06/16/25 08:23> Respiratory: Respiratory: Denies dyspnea <ALONZO Ruby Last Filed: 06/16/25 08:23> Gastrointestinal: Gastrointestinal: Reports nausea and Denies vomiting < ALONZO Ruby Last Filed: 06/16/25 08:23> Integumentary/Breasts: Skin/Breast: Reports as per HPI <ALONZO Ruby Last Filed: 06/16/25 08:23> PMFSH Past Medical History Medical History: Medical History Opioid use disorder Bacteremia Polysubstance use disorder Hepatitis C antibody positive in blood Cocaine abuse Heroin abuse PTSD (post-traumatic stress disorder) Depression Anxiety Opiate abuse, continuous <Geno Francois PA-C - Last Filed: 06/16/25 08:23> Social History Social History: Social History Household Members: None Housing: Homeless Do you presently have visiting nurse or other home services: No Alcohol intake: never Comment: 1:1 sitter Patient Tobacco Use Status: Current everyday Tobacco user Tobacco use type: Cigarette Cigarette Packs Per Day: 1 Cigarettes Per Day: 20.0 Years Smoked: 30 Second Hand Smoke Exposure: Yes Substance Use Type: Crack/Cocaine and Heroin Advance Directives Date on File: 10/03/23 service: No <ALONZO Ruby Last Filed: 06/16/25 08:23> Meds Allergies/Adverse reactions: Allergies Allergy/AdvReac Type Severity Reaction Status Date / Time No Known Allergies Allergy Verified 06/15/25 23:03 <Geno Francois PA-C - Last Filed: 06/16/25 08:23> Active Medications: Current Medications Norepinephrine Bitartrate (Levophed) 8 mg in 250 mls @ 0 mls/hr IVCONT .Q0M ANA; Protocol Last Titration: 06/16/25 07:39 Dose: 0 mcg/kg/min, 0 mls/hr Lactated Ringer's (Lr) 1,000 mls @ 999 mls/hr IV .Q1H1M ANA Stop: 06/16/25 09:15 <Geno Francois PA-C - Last Filed: 06/16/25 08:23> Home medications: Home Medications ?Medication ?Instructions ?Recorded ?Confirmed ?Last Taken ?Type methadone 10 mg/mL oral 140 mg PO DAILY 11/25/2406/15/25 10:34 History concentrate (Methadone Intensol) <ALONZO Ruby Last Filed: 06/16/25 08:23> Physical Exam 2 Vital Signs: Vital Signs: Last Vital Signs Temp 98.5 F 06/16/25 05:57 Pulse 62 06/16/25 07:39 Resp 16 06/16/25 07:36 BP 109/71 06/16/25 07:39 Pulse Ox 92 06/16/25 07:36 O2 Del Method Room Air 06/16/25 07:36 O2 Flow Rate 1 06/16/25 06:31 BMI result Body Mass Index 23.5 <ALONZO Ruby Last Filed: 06/16/25 08:23> Const: Other: uncomfortable appearing <ALONZO Ruby Last Filed: 06/16/25 08:23> General: alert; No acute distress <ALONZO Ruby Last Filed: 06/16/25 08:23> HEENT: Other: periorbital ecchymosis <ALONZO Ruby Last Filed: 06/16/25 08:23> Resp: Effort & Inspection: normal respiratory effort <ALONZO Ruby Last Filed: 06/16/25 08:23> Skin: Other: multiple small ulcers with scabbing throughout b/l upper and lower extremities <ALONZO Ruby Last Filed: 06/16/25 08:23> Extrem: Other: left upper extremity- diffuse edema and erythema extending from olecranon process into hand - multiple scabs present, no palpable fluctuant areas ; palpable radial pulse, full ROM of left hand <ALONZO Ruby Last Filed: 06/16/25 08:23> Results Labs Result diagrams: 06/17/25 06:04 06/17/25 06:04 <ALONZO Ruby Last Filed: 06/16/25 08:23> Labs: Abnormal lab results 06/15/25 06/16/25 Range/Units 23:30 01:54 WBC 19.7 H (4.8-10.8) X10*3/uL RBC 3.39 L (4.20-5.50) X10*6/uL Hgb 9.8 L (12.0-16.0) g/dl Hct 29.7 L (37.0-47.0) % MPV 9.0 L (9.4-12.3) fL Neutrophils % (Manual) 84 H (45-73) % Band Neutrophils % 7 H (3-5) % Lymphocytes % (Manual) 4 L (20-40) % Abs Neuts (Manual) 17.9 H (2.0-8.3) X10*3/uL Lymphocytes # (Manual) 0.8 L (1.2-4.9) X10*3/uL Sodium 133 L (135-145) mmol/L BUN 20 H (9-16) mg/dL AST 71 H (5-31) U/L ALT 43 H (0-31) U/L Total Creatine Kinase 288 H (26-140) U/L Total Protein 8.3 H (6.5-8.0) g/dL Albumin 3.2 L (3.5-5.0) g/dL Ur Specific [place] >= 1.030 H (1.005-1.025) Ur Leukocyte Esterase Trace H (Negative) Urine Opiates Screen POSITIVE H (Not Detect) Urine Methadone Screen Positive H (Not Detect) ng/mL Urine Fentanyl Screen POSITIVE H (Not Detect) Urine Cocaine Screen POSITIVE H (Not Detect) Short CBC 06/15/25 Range/Units 23:30 WBC 19.7 H (4.8-10.8) X10*3/uL Hgb 9.8 L (12.0-16.0) g/dl Hct 29.7 L (37.0-47.0) % Plt Count 316 D (160-400) X10*3/uL BMP 06/15/25 23:30 Sodium 133 L Potassium 4.2 D Chloride 97 Carbon Dioxide 26 BUN 20 H Creatinine 0.70 Calcium 9.3 Cardiac Enzymes 06/15/25 Range/Units 23:30 Total Creatine Kinase 288 H (26-140) U/L Liver Function 06/15/25 Range/Units 23:30 Total Bilirubin 0.3 (0.0-1.0) mg/dL AST 71 H (5-31) U/L ALT 43 H (0-31) U/L Alkaline Phosphatase 80 (39-117) U/L Albumin 3.2 L (3.5-5.0) g/dL Urine 06/16/25 Range/Units 01:54 Urine Color Yellow Urine Appearance Clear Urine pH 6.0 (5.0-9.0) Ur Specific [place] >= 1.030 H (1.005-1.025) Urine Protein Trace (Neg-Trace) mg/dL Urine Glucose (UA) Negative (Negative) mg/dL All other labs normal. <Geno Francois PA-C - Last Filed: 06/16/25 08:23> Imaging Additional studies: CT left forearm and labs reviewed <Geno Francois PA-C - Last Filed: 06/16/25 08:23> Assessment and Plan (1) Cellulitis of extremity: Status: Acute <Geno Francois PA-C - Last Filed: 06/16/25 08:23> [age] year old female with known heavy IV DKA, with cellulitis of the left forearm There is no fluctuance There is circumferentially induration and edema on a segment of the forearm I have reviewed the CAT scan - no fluid collections, small foci of air likely from injection excision sites with needles Physical exam does not suggest necrotizing process at this time No signs of ischemia distally Good palpable pulses She is oriented and says she wants to eat We will follow closely for possible I and D Seen and examined independently <Kel Teague MD - Last Filed: 06/17/25 08:33> 44-year-old female with PMH significant for IVDA being admitted for sepsis, cellulitis of left forearm. CT left forearm reviewed- diffuse subcutaneous edema with very small foci of air in subq tissue. She does have extensive edema and erythema of the left forearm however there are no fluctuant areas to drain. Picture more consistent with severe cellulitis No concern for necrotizing process at this time. Cont IV abx, supportive measures. Will continue to follow closely to see if abscess does present itself. <Geno Francois PA-C - Last Filed: 06/16/25 08:23> Procedures Date of Service Date of Service: 06/16/25 <Geno Francois PA-C - Last Filed: 06/16/25 08:23> 06/17/25 <Kel Teague MD - Last Filed: 06/17/25 08:33>
[2025-06-16] MEDS: Lactated Ringers 1,000 ML 999 ML IV (08:15)
--- NOTE | 2025-06-16 09:26 | PC.NURSE ---
Patient O2 88% RA. Elevated patient head, reassesed O2 91% applied 1L NC reassessed O2 96%.
--- NOTE | 2025-06-16 09:59 | PM.IMHP ---
History of Present Illness Date of Service: 06/16/25 Chief Complaint: fevers 44F PMH polysubstance dependence, IV opiates, cocaine, HCV untreated, history of MSSA bacteremia in 2022, mood disorder presented with fevers. Patient states she has felt unwell for the past 2 days. Denies injecting into arms but left arm has become red swollen and tender. Reporting subjective fevers. In ED CAT scan of the arm showed cellulitis and edema without underlying abscess. Noted to be in septic shock requiring 30 cc/kilos IV fluids and briefly vasopressors. Review of Systems Review of Systems: Yes all other systems are reviewed and are negative [facility] Medical History Opioid use disorder Bacteremia Polysubstance use disorder Hepatitis C antibody positive in blood Cocaine abuse Heroin abuse PTSD (post-traumatic stress disorder) Depression Anxiety Opiate abuse, continuous Social History Household Members: Unknown / Unable to assess Housing: Unknown / Unable to assess Do you presently have visiting nurse or other home services: No Alcohol intake: never Comment: 1:1 sitter Patient Tobacco Use Status: Tobacco use Unknown Tobacco use type: Cigarette Cigarette Packs Per Day: 1 Cigarettes Per Day: 20.0 Years Smoked: 30 Smoked in Last 30 Days: Yes Second Hand Smoke Exposure: Yes Use of substances other than those prescribed or required for medical reasons: Yes Substance Use Type: Crack/Cocaine and Heroin Substance Use Frequency: Chronic Longstanding Advance Directives: Yes Advance Directives on File: Yes Advance Directives Date on File: 10/03/23 Do you have a plan to hurt others: No Plan service: No Meds Allergies Allergy/AdvReac Type Severity Reaction Status Date / Time No Known Allergies Allergy Verified 06/15/25 23:03 Active Medications: Current Medications Acetaminophen (Acetaminophen 325 Mg Tablet) 650 mg PO Q6H PRN PRN Reason: Pain, Mild 1-3,fever,headache Enoxaparin Sodium (Enoxaparin Sodium 40 Mg/0.4 Ml Syringe) 40 mg SUBCUT Q24H ANA Lactated Ringer's (Lr) 1,000 mls @ 75 mls/hr IVCONT .[id number] ANA Vancomycin HCl 1,000 mg/ (Sodium Chloride) 270 mls @ 270 mls/hr IV Q12H ANA Pharmacy Consult (Consult Rx Vancomycin Dosing) 1 each MISCELLANE DAILY PRN PRN Reason: Consult order Sodium Chloride (0.9 % Sodium Chloride Flush 3 Ml Syringe) 3 ml IVFLUSH QSHIFT [facility] Home Medications ?Medication ?Instructions ?Recorded ?Confirmed ?Last Taken ?Type baclofen 20 mg tablet 20 mg PO TID 03/27/24 03/27/24 Unknown History clonidine HCl 0.1 mg tablet 0.1 mg PO BID 03/27/24 03/27/24 Unknown History escitalopram oxalate 10 mg tablet 10 mg PO DAILY 03/27/24 03/27/24 Unknown History folic acid 1 mg tablet 1 mg PO DAILY 03/27/24 03/27/24 Unknown History lactulose 10 gram/15 mL oral 30 ml PO TID 03/27/24 03/27/24 Unknown History solution ondansetron HCl 4 mg tablet 8 mg PO BID 03/27/24 03/27/24 Unknown History pantoprazole 40 mg tablet,delayed 40 mg PO BID 03/27/24 03/27/24 Unknown History release pregabalin 200 mg capsule 200 mg PO TID 03/27/24 03/27/24 Unknown History quetiapine 100 mg tablet 100 mg PO BEDTIME 03/27/24 03/27/24 Unknown History quetiapine 50 mg tablet 50 mg PO BEDTIME 03/27/24 03/27/24 Unknown History ramelteon 8 mg tablet (Rozerem) 8 mg PO BEDTIME 03/27/24 03/27/24 Unknown History methadone 10 mg/mL oral 140 mg PO DAILY 11/25/24 06/07/25 06/06/25 History concentrate (Methadone Intensol) Physical Exam Vital Signs and Narrative: Vital Signs: Last Vital Signs Temp 98.5 F 06/16/25 05:57 Pulse 62 06/16/25 08:44 Resp 16 06/16/25 08:44 BP 99/57 L 06/16/25 08:44 Pulse Ox 91 L 06/16/25 08:44 O2 Del Method Room Air 06/16/25 08:44 O2 Flow Rate 1 06/16/25 06:31 BMI result Body Mass Index 23.5 General: AO X 3, no acute distress, ill appearing, multiple skin lesions, left arm erythjea and swelling Resp: CTA bilateral, no accessory muscles used CVS: S1,S2,RRR GI: soft, non tender, non distended Results Labs 06/15/25 23:30 06/15/25 23:30 Labs: Laboratory Results - last 24 hr 06/15/25 06/16/25 23:30 01:54 MCV 87.6 MCH 28.9 MCHC 33.0 RDW 14.2 Plt Count 316 D MPV 9.0 L Immature Gran % (Auto) Cancelled Neut % (Auto) Cancelled Lymph % (Auto) Cancelled Real % (Auto) Cancelled Eos % (Auto) Cancelled Baso % (Auto) Cancelled Lymph # (Auto) Cancelled Real # (Auto) Cancelled Eos # (Auto) Cancelled Baso # (Auto) Cancelled Abs Immat Gran (auto) Cancelled Absolute Neuts (auto) Cancelled Absolute Nucleated RBC 0.000 Nucleated RBC % (auto) 0.0 Neutrophils % (Manual) 84 H Band Neutrophils % 7 H Lymphocytes % (Manual) 4 L Monocytes % (Manual) 5 Abs Neuts (Manual) 17.9 H Lymphocytes # (Manual) 0.8 L Monocytes # (Manual) 1.0 Toxic Granulation PRESENT Toxic Vacuolation PRESENT Dohle Bodies PRESENT Platelet Estimate NORMAL Plt Morphology Comment NORMAL RBC Morphology NORMAL Anion Gap 14 Estim Creat Clear Calc 81.3 Estimated GFR > 60 Random Glucose 87 Lactic Acid 1.5 Calcium 9.3 Magnesium 1.9 Total Bilirubin 0.3 AST 71 H ALT 43 H Alkaline Phosphatase 80 Total Creatine Kinase 288 H Total Protein 8.3 H Albumin 3.2 L Urine Color Yellow Urine Appearance Clear Urine pH 6.0 Ur Specific [place] >= 1.030 H Urine Protein Trace Urine Glucose (UA) Negative Urine Ketones Negative Urine Blood Negative Urine Nitrite Negative Ur Leukocyte Esterase Trace H Urine RBC 0-2 Urine WBC 0-5 Ur Squamous Epith Cells 6-10 Urine Bacteria 1+ Hyaline Casts 0-2 Urine Opiates Screen POSITIVE H Ur Buprenorphine Scrn Not Detected Ur Oxycodone Screen Not Detected Urine Methadone Screen Positive H Urine Fentanyl Screen POSITIVE H Ur Barbiturates Screen Not Detected Ur Phencyclidine Scrn Not Detected Ur Amphetamines Screen Not Detected U Benzodiazepines Scrn Not Detected Urine Cocaine Screen POSITIVE H U Marijuana (THC) Screen Not Detected Influenza Type A (PCR) NEGATIVE Influenza Type B (PCR) NEGATIVE RSV RNA Qual (PCR) NEGATIVE SARS-CoV-2 RNA (RT-PCR) NEGATIVE Imaging Radiologist's Impressions: Impressions Cervical Spine CT 06/16/25 07:10 IMPRESSION: No acute fracture or trauma-related listhesis. Fleischner guidelines were followed. Electronically signed by: Alexandre Germain MD 06/16/2025 08:50 AM EDT RP Face CT 06/16/25 07:10 IMPRESSION: No acute fracture. Probable old traumatic deformity, nasal bones. Nonspecific subcutaneous emphysema, submandibular compartment. Poor dentition. Electronically signed by: Alexandre Germain MD 06/16/2025 09:04 AM EDT RP Head CT 06/16/25 07:10 IMPRESSION: No acute fracture, bony calvarium. No acute intracranial hemorrhage. Electronically signed by: Alexandre Germain MD 06/16/2025 09:08 AM EDT RP Chest X-Ray 06/16/25 09:35 IMPRESSION: Mild interstitial edema in the correct clinical settings. Superimposed acute small airway inflammatory processes cannot be excluded. Electronically signed by: Alexandre Germain MD 06/16/2025 09:48 AM EDT RP Assessment and Plan (1) Polysubstance abuse: Status: Acute Plan 44F PMH polysubstance dependence, IV opiates, cocaine, HCV untreated, history of MSSA bacteremia in 2022, mood disorder presented with fevers septic shock from LUE cellulitis due to ivda, concern for bacteremia vanc, follow up cultures surgery appreciated, no intervention needed at this time polysubstance dependence methadone when confirmed addiciton eval hcv outpatient follow up dvt prophylaxis - lovenox full code Quality Stroke Does the patient have a stroke diagnosis?: No VTE Prior VTE?: No VTE Risk Level:: Medical - moderate - high VTE Device Contraindication: Treatment Not Indicated VTE Drug Contraindication: N/A - Med Ordered
[2025-06-16] MEDS: Lactated Ringers 1,000 ML 75 ML IVCONT (10:00)
--- NOTE | 2025-06-16 10:25 | PHA.MEDREC ---
Addendum entered by Celso Santana PharmD 06/16/25 10:32: reviewed Original Note: Pharmacy Consult ? Medication Reconciliation Pharmacy has completed the medication reconciliation. Spoke to patient to confirm med list. Patient was in and out of sleep. had to ask questions multiple times. Patient eventually stated she is not taking any medications. there are no recent claim history. Last fills was for Clonidine 0.1 mg on 01/05/25 for 30 days, Hydroxyzine bc 50 mg on 01/05/25 for 30 days , and Cyclobenaprine 5 mg. past visit notes stated patient is on Methadone 140 mg BHN.
[2025-06-16 11:31] LABS: Creatinine Clr Calc Pharmacy 116.1; Estimated Glomerular Filt Rate > 60
--- NOTE | 2025-06-16 11:35 | PC.NURSE ---
Methadone dosing verified and faxed to pharmacy
--- NOTE | 2025-06-16 12:09 | PHA.PROG ---
Admission Date/Time: June 16, 2025 09:36 Indication: skin Weight in k.7 kg Adjusted body weight in Kg: Mead body weight in Kg: Obesity Dosing Indication % IBW: Serum Creatinine - Last 168 Hours 06/15/25 06/16/25 23:30 11:10 Creatinine 0.70 0.49 L Estimated CrCl and GFR - Last 168 Hours 06/15/25 06/16/25 23:30 11:10 Estim Creat Clear Calc 81.3 116.1 Estimated GFR > 60 > 60 Vancomycin Loading Dose: 1250 mg Current Vancomycin Dosing Regimen: 1000 mg Q12H Vancomycin Monitoring using AUC goal of 400 - 600 range with trough as surrogate marker: 472 Date and Time for next Vancomycin Level to be drawn: 06/17 @1800 Pharmacist Comments on Vancomycin Plan: Vancomycin dosing will take advantage of [employer] as a clinical decision support tool that uses Bayesian modeling to calculate individual patient's pharmacokinetic parameters and forecast the patient's drug concentration time course with the target goal AUC 24 range of 400 - 600 mg/L/hr.
--- NOTE | 2025-06-16 12:22 | HE.PHANOTE ---
METHADONE Pt last received 140 mg on 06/15/25 @ 1034 per HARISH Loomis, at [facility] ([phone]).
--- NOTE | 2025-06-16 14:00 | CA_ITS ---
Transthoracic Echocardiogram Patient (Last, First, Middle): Norma Chiang, Gender: Female Date of : 1980 Age: 44 Procedure Date: 06/16/2025 Procedure Type: Transthoracic Echocardiogram Location: ER Height: 152.4 cm Weight: 54.43 kg BSA: 1.50 m2 Heart Rate: 61 bpm BP: 134 / 69 mmHg Financial Systems Director: SB Referring MD: Shashank Lazo MD Symptoms: bacteremia Study Quality: Adequate ECG Rhythm: Sinus Conclusions: - Normal left ventricular size, thickness, systolic function, and wall motion. The visually estimated ejection fraction is between 55-60%. Diastolic function is normal for age. - Mildly increased right ventricular cavity size. There is normal right ventricular systolic function. 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 Findings Left Ventricle Normal left ventricular size, thickness, systolic function, and wall motion. The visually estimated ejection fraction is between 55-60%. Diastolic function is normal for age. Right Ventricle Mildly increased right ventricular cavity size. There is normal right ventricular systolic function. Atria The left atrium is normal in size. The right atrium is likely dilated. Aortic Valve Normal aortic valve structure and function. There is no aortic valve stenosis. There is no aortic valve regurgitation. Mitral Valve The mitral valve appears normal. There is no mitral valve regurgitation. There is no mitral valve stenosis. Pulmonic Valve The pulmonic valve is likely normal. Tricuspid Valve Normal tricuspid valve structure. There is mild tricuspid valve regurgitation. The right ventricular systolic pressure is 44 mmHg. Indeterminate right atrial pressure. There is no evidence of pulmonary hypertension. Great Vessels All visible segments of the aorta are normal in size. The visualized portions of the pulmonary artery and branches are normal. Venous The inferior vena cava was not well visualized. Pericardium/Pleural There is no evidence of pericardial effusion. Measurements 2D Linear Measurements IVSd: 0.77 0.6-0.9/0.6-1.0 cm LVIDd: 5.03 3.9-5.3/4.2-5.9 cm LVIDd Index: 3.35 2.4-3.2/2.2-3.1 cm/m2 LVIDs: 3.55 2.0-3.6 cm LVPWd: 0.73 0.7-1.1 cm LA Diam: 4.10 2.7-3.8/3.0-4.0 cm LAIDs Index: 2.73 1.5-2.3 cm/m2 LV Mass: 157.36 67-162/88-224 g LV Mass Index: 104.91 43-95/49-115 g/m2 LVOT Diam: 2.00 3.0+(-)1.3 cm 2D Systolic Function EF 4C: 64.50 >55% EF 2C: 70.10 >55% EF BiP: 67.40 >55% Mitral Valve MV Pk E: 0.90 MV PK A: 0.65 MV Decel Time: 255.00 E/A: 1.40 E'Lateral: 13.20 E'Medial: 9.90 E/E' Med: 9.00 E/E' Lat: 6.80 PHT: 75.00 MVA PHT: 2.93 Decel [place]: 3.51 Aortic Valve AoV Pk [place]: 2.11 AoV Mn [place]: 1.39 AoV VTI: 0.39 AoV Pk Grad: 18.00 Aov Mn Grad: 9.00 REDDY Cont.VTI: 2.83 LVOT LVOT Pk [place]: 1.83 LVOT Mn [place]: 1.31 LVOT VTI: 0.35 LVOT Pk Grad: 13.00 LVOT Mn Grad: 8.00 LVOT Diam: 2.00 LVOT Area: 3.14 Diastolic Function MV Pk E: 0.90 MV Pk A: 0.65 E/A: 1.40 E'Medial: 9.90 E/E' Med: 9.00 E' Laterial: 13.20 E/E' Lat: 6.80 Right Ventricle TAPSE (mm): 29.50 TVS' [place]: 20.90 Tricuspid Valve TR Pk [place]: 3.22 TR Pk Grad: 41.00 RA Press: 3.00 RVSP: 44.00 Great Vessels Aorta Sinus of Valsalva: 2.90 2.0-3.5 cm Ao Asc: 3.20 2.1-3.4 cm Pulmonary Veins Pulm Vein S/D 1.70 Pulmonary Valve PV Pk [place]: 1.09 Peak PV Grad: 5.00 Updated in Other Vendor System with Status of Final Parmjit Rutledge MD electronically signed on 06/16/2025 4:55:44 PM with status of Final
--- NOTE | 2025-06-16 15:11 | PC.NURSE ---
Pt remained A&O X4 thru my shift. NAD no complaints- DSD remains on right arm skin tears which I cleaned earlier and dressed wit Bacitracin and telfa. Pt VS stable . Pt ambulated to and from well with no sx.
--- NOTE | 2025-06-16 15:30 | PM.EVENT ---
Event Note Date of Service: 06/17/25 Event Note: Seen multiple times during the day No worsening of changes on the left forearm Clinically stable and does not appear toxic No progression of of induration on the skin Clinically not necrotizing process Continue IV antibiotics We will follow closely Time Spent With Patient Time: Total time managing care of this patient today ____ minutes.
--- NOTE | 2025-06-16 18:17 | PM.EVENT ---
Event Note Date of Service: 06/16/25 Event Note: blood cultures positive for MSSA will change vanc to ancef, check repeat, echo, ID QT prolongation holding methadone, will use dilaudid for opiate dependence for now Time Spent With Patient Time: Total time managing care of this patient today ____ minutes.
[2025-06-16] MEDS: 0.9 % Sodium Chloride Flush 3 ML SYRINGE IVFLUSH (23:05)
--- NOTE | 2025-06-17 | ECG_ITS ---
Test Reason : check qtc Blood Pressure : */* mmHG Vent. Rate : 58 BPM Atrial Rate : 58 BPM P-R Int : 114 ms QRS Dur : 90 ms QT Int : 440 ms P-R-T Axes : 51 25 24 degrees QTcB Int : 431 ms Sinus bradycardia Otherwise normal ECG When compared with ECG of 16-Jun-2025 06:23, QT has shortened Referred By: Em Blake Electronically Signed By: Parmjit Rutledge
[2025-06-17 03:58] VITALS: BP 161/75; PULSE 60; RESP 16; TEMP 36.1; O2SAT 95
[2025-06-17] MEDS: Lactated Ringers 1,000 ML 75 ML IVCONT (05:52)
[2025-06-17 06:32] LABS: Hematocrit 25.6 % (37.0-47.0); Hemoglobin 8.3 g/dl (12.0-16.0); Mean Corpuscular HGB Conc 32.4 g/dl (31.0-35.0); Mean Corpuscular Hemoglobin 29.1 pg (27.0-33.0); Mean Corpuscular Volume 89.8 fL (80.0-98.0); NRBC Abs Auto 0.000 X10*3/uL (0.0-0.012); NRBC Pct Auto 0.0 /100WBC (0.0-0.2); Platelet Count 269 X10*3/uL (160-400); Red Blood Count 2.85 X10*6/uL (4.20-5.50); White Blood Count 12.9 X10*3/uL (4.8-10.8)
[2025-06-17 06:50] LABS: Anion Gap 11 (12-20); Blood Urea Nitrogen 10 mg/dL (9-16); Calcium 8.3 mg/dL (8.4-10.2); Carbon Dioxide 27 mmol/L (22-29); Chloride 101 mmol/L (96-108); Creatinine Clr Calc Pharmacy 111.1; Estimated Glomerular Filt Rate > 60; Potassium 3.5 mmol/L (3.3-5.1); Sodium 135 mmol/L (135-145)
--- NOTE | 2025-06-17 07:31 | P.PNGS_ITS ---
Subjective Subjective Date of Service: 06/17/25 <Geno Francois PA-C - Last Filed: 06/17/25 07:34> 06/17/25 <Kel Teague MD - Last Filed: 06/17/25 08:33> Interval history: C/o pain and that she is not receiving her methadone. Thinks left arm is a bit better. <Geno Francois PA-C - Last Filed: 06/17/25 07:34> Physical Exam 2 Vital Signs: Vital Signs: Last Vital Signs Temp 97.0 F 06/17/25 03:58 Pulse 60 06/17/25 03:58 Resp 16 06/17/25 03:58 BP 161/75 H 06/17/25 03:58 Pulse Ox 95 06/17/25 03:58 O2 Del Method Room Air 06/17/25 03:58 O2 Flow Rate 1 06/16/25 14:54 BMI result Body Mass Index 26.4 <Geno Francois PA-C - Last Filed: 06/17/25 07:34> Const: General: comfortable, no acute distress and alert <Geno Francois PA-C - Last Filed: 06/17/25 07:34> Resp: Effort & Inspection: normal respiratory effort <Geno Francois PA-C - Last Filed: 06/17/25 07:34> Extrem: Other: left forearm with improved erythema and edema, still no palpable fluctuance palpable radial pulse, able to use left hand without difficulty <Geno Francois PA-C - Last Filed: 06/17/25 07:34> Objective Data Active Medications Acetaminophen (Acetaminophen 325 Mg Tablet) 650 mg PO Q6H PRN PRN Reason: Pain, Mild 1-3,fever,headache Calcium Carbonate (Calcium Carbonate 750 Mg Tab.Chew) 750 mg PO Q4H PRN PRN Reason: Heartburn Enoxaparin Sodium (Enoxaparin Sodium 40 Mg/0.4 Ml Syringe) 40 mg SUBCUT Q24H ANA Hydromorphone HCl (Hydromorphone Hcl 1 Mg/Ml Syringe) 1 mg IVPUSH Q3H PRN; Protocol PRN Reason: Pain, Severe (Pain Scale 7-10) Last Admin: 06/17/25 06:05 Dose: 1 mg Documented By: MONTEZ Lactated Ringer's (Lr) 1,000 mls @ 75 mls/hr IVCONT .[id number] [facility] Last Admin: 06/17/25 05:52 Dose: 75 mls/hr Documented By: MONTEZ Cefazolin Sodium/Dextrose (Ancef) 2 gm in 50 mls @ 100 mls/hr IV Q8H [facility] Last Infusion: 06/17/25 02:41 Dose: Infused Documented By: MONTEZ Magnesium Hydroxide (Milk Of Magnesia 30 Ml Oral.Susp) 30 ml PO DAILY PRN PRN Reason: Constipation Melatonin (Melatonin 3 Mg Tablet) 6 mg PO BEDTIME PRN PRN Reason: Insomnia Sodium Chloride (0.9 % Sodium Chloride Flush 3 Ml Syringe) 3 ml IVFLUSH QSHIFT [facility] Last Admin: 06/16/25 23:05 Dose: 3 ml Documented By: MONTEZ <Geno Francois PA-C - Last Filed: 06/17/25 07:34> Labs CBC & Chem 7: 06/17/25 06:04 06/17/25 06:04 <ALONZO Ruby Last Filed: 06/17/25 07:34> Labs: Laboratory Results - last 24 hr 06/16/25 06/17/25 11:10 06:04 MCV 89.8 MCH 29.1 MCHC 32.4 RDW 14.3 Plt Count 269 MPV 9.3 L Absolute Nucleated RBC 0.000 Nucleated RBC % (auto) 0.0 Anion Gap 11 L Estim Creat Clear Calc 116.1 111.1 Estimated GFR > 60 > 60 Random Glucose 149 H Calcium 8.3 L D Total Creatine Kinase 109 <ALONZO Ruby Last Filed: 06/17/25 07:34> Microbiology Microbiology Results: Microbiology 06/16/25 00:11 Blood Culture - Preliminary Blood - Venous Prelim: GPC Gram Stain only 06/15/25 23:30 Blood Culture - Preliminary Blood - Venous Prelim: GPC Gram Stain only <ALONZO Ruby Last Filed: 06/17/25 07:34> Procedures Date of Service Date of Service: 06/17/25 <Geno Francois PA-C - Last Filed: 06/17/25 07:34> 06/17/25 <Kel Teague MD - Last Filed: 06/17/25 08:33> Progress Note: A&P Assessment and plan (1) Cellulitis of extremity: Status: Acute <Geno Francois PA-C - Last Filed: 06/17/25 07:34> Assessment and Plan: Describes pain in the left arm No fever overnight Hemodynamically remained stable Left arm with diffuse edema and cellulitis but this appears this compared to yesterday No signs of any necrotizing process No fluctuance Continue to keep left arm elevated Continue IV antibiotics Currently does not appear to require surgical intervention but we will continue to follow Seen and examined independently <Kel Teague MD - Last Filed: 06/17/25 08:33> Assessment and Plan: Left forearm cellulitis clinically improving with less edema and erythema. Continues to be no drainable collection. WBC downtrending. Cont IV abx for now, encouraged left forearm elevation to reduce edema. <Geno Francois PA-C - Last Filed: 06/17/25 07:34> Time Spent With Patient Time: Total time managing care of this patient today ____ minutes. <Geno Francois PA-C - Last Filed: 06/17/25 07:34> Quality Stroke Does the patient have a stroke diagnosis?: No <Geno Francois PA-C - Last Filed: 06/17/25 07:34> VTE Prior VTE?: No <Geno Francois PA-C - Last Filed: 06/17/25 07:34> VTE Risk Level:: Medical - moderate - high <Geno Francois PA-C - Last Filed: 06/17/25 07:34> VTE Device Contraindication: Treatment Not Indicated <Geno Francois PA-C - Last Filed: 06/17/25 07:34> VTE Drug Contraindication: N/A - Med Ordered <Geno Francois PA-C - Last Filed: 06/17/25 07:34>
[2025-06-17 07:36] VITALS: BP 147/73; PULSE 55; RESP 20; TEMP 36.3; O2SAT 96
[2025-06-17] MEDS: 0.9 % Sodium Chloride Flush 3 ML SYRINGE IVFLUSH ×3 (08:50→22:21)
--- NOTE | 2025-06-17 08:52 | MHC.CM.PN ---
CM met with Patient at bedside; Patient was crying, restless, and stated that she is in pain. Patient is listed as self pay and an email referral has been sent to [facility]. Patient has no PCP(PCP Pamphlet to be provided) and her /Jason is the HCP. Patient is homeless and has a diagnosis of Polysubstance Abuse; Patient will benefit from a Recovery Team Consult to assist with disposition. CM has initiated and will follow for dc planning. Methadone is from [facility] in [place]. Patient may require assist with transport at time of dc.
--- NOTE | 2025-06-17 10:29 | MHC.CM.PN ---
Per ROUNDS discussion, may need LT IV ABX, ID consult is pending.CM will continue to follow.
--- NOTE | 2025-06-17 10:45 | P.PNIM_ITS ---
Subjective Subjective Date of Service: 06/17/25 Interval History: seen and examined this morning follow up for bacteremia, cellulitis crying out in pain; reporting widespread pain; unable to sit still for exam, screaming with even light palpation to all body parts Review of Systems Review of Systems: Yes all other systems are reviewed and are negative Constitutional Constitutional: Denies chills and Denies fever(s) Cardiovascular Cardiovascular: Denies chest pain and Denies dyspnea Respiratory Respiratory: Denies cough and Denies dyspnea Gastrointestinal Gastrointestinal: Denies abdominal pain Physical Exam 2 Vital Signs: Vital Signs: Last Vital Signs Temp 97.3 F 06/17/25 07:36 Pulse 55 06/17/25 07:36 Resp 20 06/17/25 07:36 BP 147/73 H 06/17/25 07:36 Pulse Ox 96 06/17/25 07:36 O2 Del Method Room Air 06/17/25 07:36 O2 Flow Rate 1 06/16/25 14:54 BMI result Body Mass Index 26.4 Const: Other: crying, shouting General: alert, awake and Physically active Nutritional Appearance: a verage body habitus Orientation/consciousness: patient oriented x3 L imitations: behavioral limitations Resp: Effort & Inspection: normal respiratory effort, able to speak in complete sentences, no respiratory distress and no use of accessory muscles Cardio: Rate: regular rate Skin: Other: left forearm with swelling, mild erythema Neuro: General: patient oriented x3, moves all extremities and CN's II-XI intact bilaterally Objective Data Active Medications Acetaminophen (Acetaminophen 325 Mg Tablet) 650 mg PO Q6H PRN PRN Reason: Pain, Mild 1-3,fever,headache Calcium Carbonate (Calcium Carbonate 750 Mg Tab.Chew) 750 mg PO Q4H PRN PRN Reason: Heartburn Enoxaparin Sodium (Enoxaparin Sodium 40 Mg/0.4 Ml Syringe) 40 mg SUBCUT Q24H [facility] Last Admin: 06/17/25 08:55 Dose: Not Given Documented By: TETE Non-Admin Reason: Patient Refused Hydromorphone HCl (Hydromorphone Hcl 1 Mg/Ml Syringe) 1 mg IVPUSH Q3H PRN; Protocol PRN Reason: Pain, Severe (Pain Scale 7-10) Last Admin: 06/17/25 08:50 Dose: 1 mg Documented By: TETE Lactated Ringer's (Lr) 1,000 mls @ 75 mls/hr IVCONT .[id number] [facility] Last Admin: 06/17/25 05:52 Dose: 75 mls/hr Documented By: MONTEZ Cefazolin Sodium/Dextrose (Ancef) 2 gm in 50 mls @ 100 mls/hr IV Q8H [facility] Last Infusion: 06/17/25 02:41 Dose: Infused Documented By: MONTEZ Magnesium Hydroxide (Milk Of Magnesia 30 Ml Oral.Susp) 30 ml PO DAILY PRN PRN Reason: Constipation Melatonin (Melatonin 3 Mg Tablet) 6 mg PO BEDTIME PRN PRN Reason: Insomnia Methadone HCl (Methadone Hcl 20 Mg/2 Ml Oral.Conc) 140 mg PO DAILY [facility] Sodium Chloride (0.9 % Sodium Chloride Flush 3 Ml Syringe) 3 ml IVFLUSH QSHIFT [facility] Last Admin: 06/17/25 08:50 Dose: 3 ml Documented By: TETE Labs 06/17/25 06:04 06/17/25 06:04 Labs: Laboratory Results - last 24 hr 06/16/25 06/17/25 11:10 06:04 MCV 89.8 MCH 29.1 MCHC 32.4 RDW 14.3 Plt Count 269 MPV 9.3 L Absolute Nucleated RBC 0.000 Nucleated RBC % (auto) 0.0 Anion Gap 11 L Estim Creat Clear Calc 116.1 111.1 Estimated GFR > 60 > 60 Random Glucose 149 H Calcium 8.3 L D Total Creatine Kinase 109 Microbiology Microbiology Results: Microbiology 06/16/25 00:11 Blood Culture - Preliminary Blood - Venous Staphylococcus aureus 06/15/25 23:30 Blood Culture - Preliminary Blood - Venous Staphylococcus aureus Assessment and Plan (1) Polysubstance abuse: Status: Acute (2) MSSA bacteremia: Status: Acute (3) Cellulitis of extremity: Status: Acute Plan This is a 44F PMH polysubstance dependence, IV opiates, cocaine, HCV untreated, history of MSSA bacteremia in 2022, mood disorder who presented with fevers, left forearm cellulitis found to have bacteremia septic shock from LUE cellulitis due to ivda and bacteremia hypotension resolved with IVF initially treated with vancomycin, 2/2 cultures from 06/16 growing MSSA, abx changed to cefazolin 06/16 Surveillance blood cultures pending echo with no obvious vegetation ID consult pending general surgery following for significant swelling in LUE, appreciated, no intervention needed at this time polysubstance dependence methadone resumed, repeat EKG with improvement in Qtc addiction eval hcv outpatient follow up dvt prophylaxis - lovenox full code Quality Stroke Does the patient have a stroke diagnosis?: No VTE Prior VTE?: No VTE Risk Level:: Medical - moderate - high VTE Device Contraindication: Treatment Not Indicated VTE Drug Contraindication: N/A - Med Ordered
[2025-06-17] MEDS: methADONE HCl 20 MG/2 ML ORAL.CONC 140 MG PO (11:13)
[2025-06-17 11:19] VITALS: BP 147/67; PULSE 60; RESP 18; TEMP 36.6; O2SAT 96
--- NOTE | 2025-06-17 11:42 | MHC.CM.PN ---
Per [facility], Patient has [employer] insurance.
[2025-06-17 16:00] VITALS: BP 144/84; PULSE 58; RESP 18; TEMP 36.9; O2SAT 97
[2025-06-17 20:00] VITALS: BP 163/78; PULSE 68; RESP 16; TEMP 36.9; O2SAT 95
[2025-06-17 23:56] VITALS: BP 164/81; PULSE 76; RESP 18; TEMP 37.1; O2SAT 94
[2025-06-18] VITALS (9 sets, daily range): BP systolic 131–163; BP diastolic 63–88; PULSE 52–93; RESP 16–20; TEMP 36–37.6; O2SAT 90–96
[2025-06-18 06:33] LABS: Hematocrit 28.6 % (37.0-47.0); Hemoglobin 9.1 g/dl (12.0-16.0); Mean Corpuscular HGB Conc 31.8 g/dl (31.0-35.0); Mean Corpuscular Hemoglobin 28.7 pg (27.0-33.0); Mean Corpuscular Volume 90.2 fL (80.0-98.0); NRBC Abs Auto 0.020 X10*3/uL (0.0-0.012); NRBC Pct Auto 0.2 /100WBC (0.0-0.2); Platelet Count 314 X10*3/uL (160-400); Red Blood Count 3.17 X10*6/uL (4.20-5.50); White Blood Count 12.2 X10*3/uL (4.8-10.8)
[2025-06-18 06:54] LABS: Alanine Aminotransferase 21 U/L (0-31); Albumin Level 2.6 g/dL (3.5-5.0); Alkaline Phosphatase 78 U/L (39-117); Aspartate Amino Transferase 46 U/L (5-31); Total Protein 6.7 g/dL (6.5-8.0)
--- NOTE | 2025-06-18 07:37 | P.PNGS_ITS ---
Subjective Subjective Date of Service: 06/18/25 <Geno Francois PA-C - Last Filed: 06/18/25 07:39> 06/18/25 <Kel Teague MD - Last Filed: 06/18/25 10:01> Interval history: Feels ok, c/o pain. <Geno Francois PA-C - Last Filed: 06/18/25 07:39> Physical Exam 2 Vital Signs: Vital Signs: Last Vital Signs Temp 97.4 F 06/18/25 03:13 Pulse 52 06/18/25 03:13 Resp 18 06/18/25 03:13 BP 161/88 H 06/18/25 03:13 Pulse Ox 90 L 06/18/25 03:13 O2 Del Method Room Air 06/18/25 03:13 O2 Flow Rate 1 06/16/25 14:54 BMI result Body Mass Index 26.4 <Geno Francois PA-C - Last Filed: 06/18/25 07:39> Const: Other: unkempt appearing <Geno Francois PA-C - Last Filed: 06/18/25 07:39> General: comfortable, no acute distress and alert <Geno Francois PA-C - Last Filed: 06/18/25 07:39> Resp: Effort & Inspection: normal respiratory effort <Geno Francois PA-C - Last Filed: 06/18/25 07:39> Extrem: Other: left forearm edema and erythema improved, very mild induration at multiple scab sites, no palpable fluctuance <Geno Francois PA-C - Last Filed: 06/18/25 07:39> Objective Data Active Medications Acetaminophen (Acetaminophen 325 Mg Tablet) 650 mg PO Q6H PRN PRN Reason: Pain, Mild 1-3,fever,headache Last Admin: 06/18/25 00:11 Dose: 650 mg Documented By: MAKAYLA Calcium Carbonate (Calcium Carbonate 750 Mg Tab.Chew) 750 mg PO Q4H PRN PRN Reason: Heartburn Enoxaparin Sodium (Enoxaparin Sodium 40 Mg/0.4 Ml Syringe) 40 mg SUBCUT Q24H [facility] Last Admin: 06/17/25 08:55 Dose: Not Given Documented By: TETE Non-Admin Reason: Patient Refused Hydromorphone HCl (Hydromorphone Hcl 1 Mg/Ml Syringe) 0.5 mg IVPUSH Q4H PRN; Protocol PRN Reason: Pain, Severe (Pain Scale 7-10) Cefazolin Sodium/Dextrose (Ancef) 2 gm in 50 mls @ 100 mls/hr IV Q8H [facility] Last Infusion: 06/18/25 05:40 Dose: Infused Documented By: MAKAYLA Magnesium Hydroxide (Milk Of Magnesia 30 Ml Oral.Susp) 30 ml PO DAILY PRN PRN Reason: Constipation Melatonin (Melatonin 3 Mg Tablet) 6 mg PO BEDTIME PRN PRN Reason: Insomnia Last Admin: 06/18/25 00:13 Dose: 6 mg Documented By: MAKAYLA Methadone HCl (Methadone Hcl 20 Mg/2 Ml Oral.Conc) 140 mg PO DAILY [facility] Last Admin: 06/17/25 11:13 Dose: 140 mg Documented By: ANN MARIE Co-signed By: TETE Sodium Chloride (0.9 % Sodium Chloride Flush 3 Ml Syringe) 3 ml IVFLUSH QSHIFT [facility] Last Admin: 06/17/25 22:21 Dose: 3 ml Documented By: MAKAYLA <Geno Francois PA-C - Last Filed: 06/18/25 07:39> Labs CBC & Chem 7: 06/18/25 05:27 06/17/25 06:04 <Geno Francois PA-C - Last Filed: 06/18/25 07:39> Labs: Laboratory Results - last 24 hr 06/18/25 05:27 MCV 90.2 MCH 28.7 MCHC 31.8 RDW 14.4 Plt Count 314 MPV 9.2 L Absolute Nucleated RBC 0.020 H Nucleated RBC % (auto) 0.2 Total Bilirubin 0.1 Direct Bilirubin < 0.2 AST 46 H ALT 21 Alkaline Phosphatase 78 Total Protein 6.7 Albumin 2.6 L <Geno Francois PA-C - Last Filed: 06/18/25 07:39> Microbiology Microbiology Results: Microbiology 06/16/25 00:11 Blood Culture - Preliminary Blood - Venous Staphylococcus aureus 06/15/25 23:30 Blood Culture - Preliminary Blood - Venous Staphylococcus aureus <Geno Francois PA-C - Last Filed: 06/18/25 07:39> Procedures Date of Service Date of Service: 06/18/25 <Geno Francois PA-C - Last Filed: 06/18/25 07:39> 06/18/25 <Kel Teague MD - Last Filed: 06/18/25 10:01> Progress Note: A&P Assessment and plan (1) Cellulitis of extremity: Status: Acute <Geno Francois PA-C - Last Filed: 06/18/25 07:39> Assessment and Plan: No events overnight No fever Clinically looks well Left forearm edema much improved, with note of significant wrinkling of the skin consistent resolution of edema No fluctuance No evidence of necrotizing process I emphasized to the patient the importance of leg elevation Antibiotics Seen and examined independently <eKl Teague MD - Last Filed: 06/18/25 10:01> Assessment and Plan: Left forearm cellulitis clinically improving with less edema and erythema. Continues to be no drainable collection. Cont IV abx for now, encouraged left forearm elevation to reduce edema. Encouraged to shower today. <Geno Francois PA-C - Last Filed: 06/18/25 07:39> Time Spent With Patient Time: Total time managing care of this patient today ____ minutes. <Geno Francois PA-C - Last Filed: 06/18/25 07:39> Quality Stroke Does the patient have a stroke diagnosis?: No <Geno Francois PA-C - Last Filed: 06/18/25 07:39> VTE Prior VTE?: No <Geno Francois PA-C - Last Filed: 06/18/25 07:39> VTE Risk Level:: Medical - moderate - high <Geno Francois PA-C - Last Filed: 06/18/25 07:39> VTE Device Contraindication: Treatment Not Indicated <Geno Francois PA-C - Last Filed: 06/18/25 07:39> VTE Drug Contraindication: N/A - Med Ordered <Geno Francois PA-C - Last Filed: 06/18/25 07:39>
[2025-06-18] MEDS: methADONE HCl 20 MG/2 ML ORAL.CONC 140 MG PO (08:46)
[2025-06-18] MEDS: 0.9 % Sodium Chloride Flush 3 ML SYRINGE IVFLUSH ×2 (08:49→16:49)
--- NOTE | 2025-06-18 09:29 | MHC.RECOVRN ---
Met with pt in f/u to discuss withdrawal and pain management. Pt stated I'm having pains all over pt with visible bruising and laceration on the nose and face. Primary RN was notified to prioritize pt's methadone dosing as pt was rocking left and right in bed and was crying inconsolably. After methadone administration, t/w reviewed with pt her PRN medications including pain medication and was encouraged to request meds as needed for sufficient pain and symptom control. Will continue to follow-up with and monitor pt.
--- NOTE | 2025-06-18 11:36 | P.PNIM_ITS ---
Subjective Subjective Date of Service: 06/18/25 Interval History: Seen and examined this morning Follow-up for bacteremia, left arm cellulitis Reporting back pain Review of Systems Review of Systems: Yes all other systems are reviewed and are negative Constitutional Constitutional: Denies chills and Denies fever(s) Cardiovascular Cardiovascular: Denies chest pain and Denies dyspnea Respiratory Respiratory: Denies dyspnea Gastrointestinal Gastrointestinal: Denies abdominal pain, Denies diarrhea, Denies nausea and Denies vomiting Physical Exam 2 Vital Signs: Vital Signs: Last Vital Signs Temp 98.8 F 06/18/25 08:00 Pulse 52 06/18/25 08:00 Resp 20 06/18/25 11:23 BP 152/72 H 06/18/25 08:00 Pulse Ox 94 06/18/25 08:00 O2 Del Method Room Air 06/18/25 08:00 O2 Flow Rate 1 06/16/25 14:54 BMI result Body Mass Index 26.4 Const: Other: more calm today General: alert, awake and Physically active Nutritional Appearance: a verage body habitus Orientation/consciousness: patient oriented x3 L imitations: behavioral limitations Resp: Effort & Inspection: normal respiratory effort, able to speak in complete sentences, no respiratory distress and no use of accessory muscles Cardio: Rate: regular rate Back/Spine/Pelvis: Other: Scar in midline of thoracic spine, well healed. No erythema. Patient reporting left paraspinal muscle tenderness mid/upper thoracic spine;no significant midline tenderness Skin: Other: left forearm with swelling Neuro: General: patient oriented x3, moves all extremities and CN's II-XI intact bilaterally Objective Data Active Medications Acetaminophen (Acetaminophen 325 Mg Tablet) 650 mg PO Q6H PRN PRN Reason: Pain, Mild 1-3,fever,headache Last Admin: 06/18/25 00:11 Dose: 650 mg Documented By: MAKAYLA Calcium Carbonate (Calcium Carbonate 750 Mg Tab.Chew) 750 mg PO Q4H PRN PRN Reason: Heartburn Enoxaparin Sodium (Enoxaparin Sodium 40 Mg/0.4 Ml Syringe) 40 mg SUBCUT Q24H [facility] Last Admin: 06/18/25 08:48 Dose: 40 mg Documented By: PASHATEKCary Hydromorphone HCl (Hydromorphone Hcl 1 Mg/Ml Syringe) 0.5 mg IVPUSH Q4H PRN; Protocol PRN Reason: Pain, Severe (Pain Scale 7-10) Last Admin: 06/18/25 11:23 Dose: 0.5 mg Documented By: VANNA Cefazolin Sodium/Dextrose (Ancef) 2 gm in 50 mls @ 100 mls/hr IV Q8H ON [facility] OF [facility] Last Admin: 06/18/25 11:33 Dose: 100 mls/hr Documented By: VANNA Magnesium Hydroxide (Milk Of Magnesia 30 Ml Oral.Susp) 30 ml PO DAILY PRN PRN Reason: Constipation Melatonin (Melatonin 3 Mg Tablet) 6 mg PO BEDTIME PRN PRN Reason: Insomnia Last Admin: 06/18/25 00:13 Dose: 6 mg Documented By: MAKAYLA Methadone HCl (Methadone Hcl 20 Mg/2 Ml Oral.Conc) 140 mg PO DAILY [facility] Last Admin: 06/18/25 08:46 Dose: 140 mg Documented By: VANNA Co-signed By: LUCIUS Sodium Chloride (0.9 % Sodium Chloride Flush 3 Ml Syringe) 3 ml IVFLUSH QSHIFT [facility] Last Admin: 06/18/25 08:49 Dose: 3 ml Documented By: VANNA Labs 06/18/25 05:27 06/17/25 06:04 Labs: Laboratory Results - last 24 hr 06/18/25 05:27 MCV 90.2 MCH 28.7 MCHC 31.8 RDW 14.4 Plt Count 314 MPV 9.2 L Absolute Nucleated RBC 0.020 H Nucleated RBC % (auto) 0.2 Total Bilirubin 0.1 Direct Bilirubin < 0.2 AST 46 H ALT 21 Alkaline Phosphatase 78 Total Protein 6.7 Albumin 2.6 L Microbiology Microbiology Results: Microbiology 06/17/25 06:04 Blood Culture - Preliminary Blood - Venous No growth after 24 hours. 06/17/25 06:04 Blood Culture - Preliminary Blood - Venous No growth after 24 hours. 06/16/25 00:11 Blood Culture - Final Blood - Venous Staphylococcus aureus 06/15/25 23:30 Blood Culture - Final Blood - Venous Staphylococcus aureus Assessment and Plan (1) MSSA bacteremia: Status: Acute Plan This is a 44F PMH polysubstance dependence, IV opiates, cocaine, HCV untreated, history of MSSA bacteremia in 2022, mood disorder who presented with fevers, left forearm cellulitis found to have bacteremia septic shock from LUE cellulitis due to ivda and MSSA bacteremia hypotension resolved with IVF initially treated with vancomycin, 2/2 cultures from 06/16 growing MSSA, abx changed to cefazolin 06/16 Surveillance blood cultures from 06/17 negative to date echo with no obvious vegetation ID consult pending general surgery following for significant swelling in LUE, appreciated, no intervention needed at this time 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
[2025-06-18] MEDS: iohexoL 350 MG/ML 100 ML INFUS..BTL 85 ML IV (13:26)
[2025-06-18] MEDS: Lidocaine 4 % Patch ADH..PATCH 1 PATCH TRANSDERMA (16:50)
[2025-06-19] VITALS: BP 149/73; PULSE 52; RESP 18; TEMP 36.1; O2SAT 95
[2025-06-19 03:15] VITALS: BP 136/69; PULSE 51; RESP 16; TEMP 37.1; O2SAT 96
[2025-06-19 07:24] VITALS: BP 152/75; PULSE 52; RESP 20; TEMP 36.4; O2SAT 96
[2025-06-19] MEDS: methADONE HCl 20 MG/2 ML ORAL.CONC 140 MG PO (09:15)
[2025-06-19] MEDS: Lidocaine 4 % Patch ADH..PATCH 1 PATCH TRANSDERMA (09:17)
[2025-06-19] MEDS: 0.9 % Sodium Chloride Flush 3 ML SYRINGE IVFLUSH (09:20)
--- NOTE | 2025-06-19 10:04 | HO.PM.IMPN ---
Subjective Subjective Date of Service: 06/19/25 Interval History: Seen and examined this morning Follow-up for bacteremia, left forearm cellulitis Feeling better this morning Constitutional Constitutional: Denies chills and Denies fever(s) Cardiovascular Cardiovascular: Denies chest pain and Denies palpitations Endocrine Endocrine: Denies palpitations Physical Exam Vital Signs: Vital Signs: Last Vital Signs Temp 97.6 F 06/19/25 07:24 Pulse 52 06/19/25 07:24 Resp 20 06/19/25 07:24 BP 152/75 H 06/19/25 07:24 Pulse Ox 96 06/19/25 07:24 O2 Del Method Room Air 06/19/25 07:24 O2 Flow Rate 1 06/16/25 14:54 BMI result Body Mass Index 26.4 Const: General: cooperative, comfortable, no acute distress, alert, awake and Physically active Nutritional Appearance: average body habitus Orientation/consciousness: patient oriented x3 Resp: Effort & Inspection: normal respiratory effort, able to speak in complete sentences, no respiratory distress and no use of accessory muscles Cardio: Rate: regular rate Back/Spine/Pelvis: Other: Scar in midline of thoracic spine, well healed. No erythema. Patient reporting left paraspinal muscle tenderness mid/upper thoracic spine;no significant midline tenderness Skin: Other: left forearm with swelling improved Neuro: General: patient oriented x3, moves all extremities and CN's II-XI intact bilaterally Objective Data Active Medications Acetaminophen (Acetaminophen 325 Mg Tablet) 650 mg PO Q6H PRN PRN Reason: Pain, Mild 1-3,fever,headache Last Admin: 06/18/25 22:43 Dose: 650 mg Documented By: ERICA Calcium Carbonate (Calcium Carbonate 750 Mg Tab.Chew) 750 mg PO Q4H PRN PRN Reason: Heartburn Enoxaparin Sodium (Enoxaparin Sodium 40 Mg/0.4 Ml Syringe) 40 mg SUBCUT Q24H ANA Last Admin: 06/19/25 09:21 Dose: 40 mg Documented By: TARAH Hydromorphone HCl (Hydromorphone Hcl 1 Mg/Ml Syringe) 0.5 mg IVPUSH Q4H PRN; Protocol PRN Reason: Pain, Severe (Pain Scale 7-10) Last Admin: 06/18/25 15:32 Dose: 0.5 mg Documented By: VANNA Cefazolin Sodium/Dextrose (Ancef) 2 gm in 50 mls @ 100 mls/hr IV Q8H [facility] Last Infusion: 06/19/25 09:57 Dose: Infused Documented By: VANNA Acetaminophen (Ofirmev) 1,000 mg in 100 mls @ 400 mls/hr IV Q8H PRN PRN Reason: pain, moderate Stop: 06/19/25 16:59 Lidocaine (Lidocaine 4 % Patch Adh..Patch) 1 patch TRANSDERMA DAILY [facility]; Protocol Last Admin: 06/19/25 09:17 Dose: 1 patch Documented By: TARAH Magnesium Hydroxide (Milk Of Magnesia 30 Ml Oral.Susp) 30 ml PO DAILY PRN PRN Reason: Constipation Melatonin (Melatonin 3 Mg Tablet) 6 mg PO BEDTIME PRN PRN Reason: Insomnia Last Admin: 06/18/25 00:13 Dose: 6 mg Documented By: MAKAYLA Methadone HCl (Methadone Hcl 20 Mg/2 Ml Oral.Conc) 140 mg PO DAILY [facility] Last Admin: 06/19/25 09:15 Dose: 140 mg Documented By: TARAH Co-signed By: DEBRA Sodium Chloride (0.9 % Sodium Chloride Flush 3 Ml Syringe) 3 ml IVFLUSH QSHIFT [facility] Last Admin: 06/19/25 09:20 Dose: 3 ml Documented By: TARAH Labs 06/18/25 05:27 06/17/25 06:04 Labs: Laboratory Results - last 24 hr 06/18/25 05:27 ESR 114 H C-Reactive Protein 15.92 H Microbiology Microbiology Results: Microbiology 06/17/25 06:04 Blood Culture - Preliminary Blood - Venous Prelim: GPC Gram Stain only 06/17/25 06:04 Blood Culture - Preliminary Blood - Venous No growth after 48 hours. 06/16/25 00:11 Blood Culture - Final Blood - Venous Staphylococcus aureus 06/15/25 23:30 Blood Culture - Final Blood - Venous Staphylococcus aureus Assessment and Plan (1) MSSA bacteremia: Status: Acute (2) Polysubstance abuse: Status: Acute Plan This is a 44F PMH polysubstance dependence, IV opiates, cocaine, HCV untreated, history of MSSA bacteremia in 2022, mood disorder who presented with fevers, left forearm cellulitis found to have bacteremia septic shock from LUE cellulitis due to ivda and MSSA bacteremia hypotension resolved with IVF initially treated with vancomycin, 2/2 cultures from 06/16 growing MSSA, abx changed to cefazolin 06/16 Surveillance blood cultures from 06/17 now growing 1/2 g positive cocci-await final speciation, will need repeat blood cultures if not contaminant echo with no obvious vegetation ID consult pending general surgery following for significant swelling in LUE, appreciated, no intervention needed at this time 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 status post surgery at [facility] - CT of thoracic spine -can't rule out possibility of discitis/osteomyeltits at T6, d/w radiology recommended against MRI as would likely have too much beam artifact from spine hardware; will discuss with ID polysubstance dependence methadone resumed, repeat EKG with improvement in Qtc addiction medicine following hcv outpatient follow up Transaminitis Likely due to the above Trending down, outpatient follow-up dvt prophylaxis - lovenox full code Quality Stroke Does the patient have a stroke diagnosis?: No VTE Prior VTE?: No VTE Risk Level:: Medical - moderate - high VTE Device Contraindication: Treatment Not Indicated VTE Drug Contraindication: N/A - Med Ordered
[2025-06-19 11:08] VITALS: BP 156/74; PULSE 54; RESP 20; TEMP 36.2; O2SAT 96
--- NOTE | 2025-06-19 14:16 | MHC.RECOVRN ---
Met with pt in f/u to discuss withdrawal symptoms and methadone dosing. Upon approach pt is resting with eyes closed, comfortably, appearing calm. When heard her name pt briefly woke up and spoke to t/w. Pt stated her pain and withdrawals are well managed and under control. Pt was thankful and denied any questions or concerns. Pt encouraged to reach out to the ACS team if any addiction/recovery needs arise. Will continue to monitor and follow up with patient.
[2025-06-19 15:53] VITALS: BP 153/79; PULSE 51; RESP 17; TEMP 36.8; O2SAT 95
[2025-06-19 19:46] VITALS: BP 158/90; PULSE 53; RESP 16; TEMP 36.8; O2SAT 93
[2025-06-20] VITALS (13 sets, daily range): BP systolic 140–164; BP diastolic 70–92; PULSE 55–70; RESP 16–20; TEMP 36–38.3; O2SAT 93–98
[2025-06-20] MEDS: 0.9 % Sodium Chloride Flush 3 ML SYRINGE IVFLUSH ×4 (04:31→19:30)
[2025-06-20 07:12] LABS: Hematocrit 29.7 % (37.0-47.0); Hemoglobin 9.3 g/dl (12.0-16.0); Mean Corpuscular HGB Conc 31.3 g/dl (31.0-35.0); Mean Corpuscular Hemoglobin 28.6 pg (27.0-33.0); Mean Corpuscular Volume 91.4 fL (80.0-98.0); NRBC Abs Auto 0.020 X10*3/uL (0.0-0.012); NRBC Pct Auto 0.2 /100WBC (0.0-0.2); Platelet Count 342 X10*3/uL (160-400); Red Blood Count 3.25 X10*6/uL (4.20-5.50)
[2025-06-20 07:22] LABS: Anion Gap 12 (12-20); Blood Urea Nitrogen 11 mg/dL (9-16); Calcium 8.4 mg/dL (8.4-10.2); Carbon Dioxide 29 mmol/L (22-29); Chloride 100 mmol/L (96-108); Creatinine Clr Calc Pharmacy 117.6; Estimated Glomerular Filt Rate > 60; Potassium 3.9 mmol/L (3.3-5.1); Sodium 137 mmol/L (135-145)
[2025-06-20 07:27] LABS: WBC ABN SCTR FOR CBC 1
[2025-06-20 07:55] LABS: Atypical Lymphs Percent Manual 1 % (0-6); Band Neutrophils Percent 3 % (3-5); Lymphocytes Percent Manual 16 % (20-40); Monocytes Percent Manual 4 % (2-11); Myelocytes Percent 2 %; Neutrophils Percent Manual 73 % (45-73); Promyelocytes Percent 1 %
[2025-06-20 07:56] LABS: RBC Morphology NOTED
[2025-06-20 07:57] LABS: Dohle Bodies PRESENT; Polychromasia 2+ (3-5) /OIF; Toxic Granulation PRESENT; Toxic Vacuolation PRESENT
[2025-06-20 07:58] LABS: Atypical Lymph Absolute Manual 0.1 x10*3/uL; Lymphocytes Absolute Manual 1.8 X10*3/uL (1.2-4.9); Monocytes Absolute Manual 0.4 X10*3/uL (0.1-1.2); Myelocytes Absolute 0.2 X10*/uL; Neutrophils Absolute Manual 8.5 X10*3/uL (2.0-8.3); Promyelocytes Absolute 0.1 X10*3/uL; White Blood Count 11.2 X10*3/uL (4.8-10.8)
[2025-06-20] MEDS: Lidocaine 4 % Patch ADH..PATCH 1 PATCH TRANSDERMA (08:43)
[2025-06-20] MEDS: methADONE HCl 20 MG/2 ML ORAL.CONC 70 MG PO ×2 (08:47→14:42)
--- NOTE | 2025-06-20 14:23 | HO.PM.IMPN ---
Subjective Subjective Date of Service: 06/20/25 Interval History: Seen and examined this morning Follow-up for bacteremia no overnight events Review of Systems Review of Systems: Yes all other systems are reviewed and are negative Constitutional Constitutional: Denies chills and Denies fever(s) Cardiovascular Cardiovascular: Denies chest pain and Denies palpitations Endocrine Endocrine: Denies palpitations Physical Exam Vital Signs: Vital Signs: Last Vital Signs Temp 98.1 F 06/20/25 11:14 Pulse 63 06/20/25 11:14 Resp 18 06/20/25 13:02 BP 164/82 H 06/20/25 11:14 Pulse Ox 96 06/20/25 11:14 O2 Del Method Room Air 06/20/25 11:14 O2 Flow Rate 1 06/16/25 14:54 BMI result Body Mass Index 26.4 Const: General: cooperative, comfortable, no acute distress, alert, awake and Physically active Nutritional Appearance: average body habitus Orientation/consciousness: patient oriented x3 Limitations: behavioral limitations Cardio: Rate: regular rate Back/Spine/Pelvis: Other: Scar in midline of thoracic spine, well healed. No erythema. some left paraspinal muscle tenderness mid/upper thoracic spine;no significant midline tenderness Skin: Other: left forearm with swelling improved Neuro: General: patient oriented x3, moves all extremities and CN's II-XI intact bilaterally Objective Data Active Medications Acetaminophen (Acetaminophen 325 Mg Tablet) 650 mg PO Q6H PRN PRN Reason: Pain, Mild 1-3,fever,headache Last Admin: 06/20/25 05:34 Dose: 650 mg Documented By: ERICA Calcium Carbonate (Calcium Carbonate 750 Mg Tab.Chew) 750 mg PO Q4H PRN PRN Reason: Heartburn Enoxaparin Sodium (Enoxaparin Sodium 40 Mg/0.4 Ml Syringe) 40 mg SUBCUT Q24H ANA Last Admin: 06/20/25 08:43 Dose: 40 mg Documented By: TARAH Hydromorphone HCl (Hydromorphone Hcl 1 Mg/Ml Syringe) 0.5 mg IVPUSH Q4H PRN; Protocol PRN Reason: Pain, Severe (Pain Scale 7-10) Last Admin: 06/20/25 13:02 Dose: 0.5 mg Documented By: VANNA Cefazolin Sodium/Dextrose (Ancef) 2 gm in 50 mls @ 100 mls/hr IV Q8H [facility] Last Infusion: 06/20/25 12:44 Dose: Infused Documented By: VANNA Lidocaine (Lidocaine 4 % Patch Adh..Patch) 1 patch TRANSDERMA DAILY [facility]; Protocol Last Admin: 06/20/25 08:43 Dose: 1 patch Documented By: TARAH Magnesium Hydroxide (Milk Of Magnesia 30 Ml Oral.Susp) 30 ml PO DAILY PRN PRN Reason: Constipation Melatonin (Melatonin 3 Mg Tablet) 6 mg PO BEDTIME PRN PRN Reason: Insomnia Last Admin: 06/19/25 21:33 Dose: 6 mg Documented By: ERICA Methadone HCl (Methadone Hcl 20 Mg/2 Ml Oral.Conc) 70 mg PO DAILY@0800 [facility] Last Admin: 06/20/25 08:47 Dose: 70 mg Documented By: TARAH Co-signed By: VANNA Sodium Chloride (0.9 % Sodium Chloride Flush 3 Ml Syringe) 3 ml IVFLUSH QSHIFT [facility] Last Admin: 06/20/25 08:47 Dose: 3 ml Documented By: TARAH Labs 06/20/25 06:49 06/20/25 06:49 Labs: Laboratory Results - last 24 hr 06/20/25 06:49 MCV 91.4 MCH 28.6 MCHC 31.3 RDW 14.5 Plt Count 342 MPV 8.8 L Immature Gran % (Auto) Cancelled Neut % (Auto) Cancelled Lymph % (Auto) Cancelled [place] % (Auto) Cancelled Eos % (Auto) Cancelled Baso % (Auto) Cancelled Lymph # (Auto) Cancelled [place] # (Auto) Cancelled Eos # (Auto) Cancelled Baso # (Auto) Cancelled Abs Immat Gran (auto) Cancelled Absolute Neuts (auto) Cancelled Absolute Nucleated RBC 0.020 H Nucleated RBC % (auto) 0.2 Neutrophils % (Manual) 73 Band Neutrophils % 3 Lymphocytes % (Manual) 16 L Atypical Lymphs % (Man) 1 Monocytes % (Manual) 4 Myelocytes % 2 Promyelocytes % 1 Abs Neuts (Manual) 8.5 H Lymphocytes # (Manual) 1.8 Atyp Lymphs # (Manual) 0.1 Monocytes # (Manual) 0.4 Myelocytes # 0.2 Promyelocytes # 0.1 Toxic Granulation PRESENT Toxic Vacuolation PRESENT Dohle Bodies PRESENT Platelet Estimate NORMAL Plt Morphology Comment NORMAL RBC Morphology NOTED Polychromasia 2+ (3-5) Anion Gap 12 Estim Creat Clear Calc 117.6 Estimated GFR > 60 Random Glucose 78 Calcium 8.4 Microbiology Microbiology Results: Microbiology 06/17/25 06:04 Blood Culture - Final Blood - Venous Staphylococcus aureus Assessment and Plan (1) Polysubstance abuse: Status: Acute (2) MSSA bacteremia: Status: Acute Plan This is a 44F PMH polysubstance dependence, IV opiates, cocaine, HCV untreated, history of MSSA bacteremia in 2022, mood disorder who presented with fevers, left forearm cellulitis found to have bacteremia septic shock from LUE cellulitis due to ivda and MSSA bacteremia hypotension resolved with IVF initially treated with vancomycin, blood cultures from 06/16 growing MSSA, abx changed to cefazolin 06/16 Surveillance blood cultures from 06/17 now growing 1/2 MSSA as well will obtain repeat blood cultures echo with no obvious vegetation general surgery following for significant swelling in LUE, appreciated, no intervention needed at this time 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 reports she has been on it for years bradycardia asymptomatic with stable blood pressure, will give additional dose of 70 mg now and then resume 140 mg in am Sinus bradycardia Due to methadone Asymptomatic. Blood pressure stable See above hcv outpatient follow up Transaminitis Likely due to the above Trending down, outpatient follow-up dvt prophylaxis - lovenox full code Quality Stroke Does the patient have a stroke diagnosis?: No VTE Prior VTE?: No VTE Risk Level:: Medical - moderate - high VTE Device Contraindication: Treatment Not Indicated VTE Drug Contraindication: N/A - Med Ordered
[2025-06-21 03:06] VITALS: BP 136/62; PULSE 52; RESP 18; TEMP 36.4; O2SAT 95
[2025-06-21 04:17] VITALS: RESP 16
[2025-06-21 07:21] VITALS: BP 131/71; PULSE 45; RESP 16; TEMP 36.2; O2SAT 96
--- NOTE | 2025-06-21 08:16 | HO.PM.IMPN ---
Subjective Subjective Date of Service: 06/21/25 Interval History: Patient was seen and examined, followed up for bacteremia and bradycardia. Per nursing her heart rate dipped into the 30s overnight on surveillance monitor. She reports extensive back surgery last year, reports that her back pain is improved today. Review of Systems Denies any shortness of breath, chest pain, dizziness, lightheadedness, abdominal pain or discomfort, nausea vomiting or diarrhea Physical Exam Exam: Exam: CONST: Alert and oriented, in NAD. Well nourished HEENT: Normocephalic, atraumatic, MMM, Eyes clear, Neck supple RESP: Lungs clear, RRR even and regular HEART:,RRR, S1, S2. no edema. Heart rate 52 apically GI:Abdomen Soft NT, ND. + BS times four :Deferred SKIN: Warm dry and intact, no visible lesions or rashes NEURO:CN II-XII Intact bilaterally, Sensation intact. Speech clear PSYCH: Normal affect Vital Signs: Vital Signs: Last Vital Signs Temp 97.1 F 06/21/25 07:21 Pulse 45 L 06/21/25 07:21 Resp 16 06/21/25 07:21 BP 131/71 06/21/25 07:21 Pulse Ox 96 06/21/25 07:21 O2 Del Method Room Air 06/21/25 07:21 O2 Flow Rate 1 06/16/25 14:54 BMI result Body Mass Index 26.4 Objective Data Active Medications Acetaminophen (Acetaminophen 325 Mg Tablet) 650 mg PO Q6H PRN PRN Reason: Pain, Mild 1-3,fever,headache Last Admin: 06/20/25 18:16 Dose: 650 mg Documented By: VANNA Calcium Carbonate (Calcium Carbonate 750 Mg Tab.Chew) 750 mg PO Q4H PRN PRN Reason: Heartburn Enoxaparin Sodium (Enoxaparin Sodium 40 Mg/0.4 Ml Syringe) 40 mg SUBCUT Q24H ANA Last Admin: 06/20/25 08:43 Dose: 40 mg Documented By: TARAH Hydromorphone HCl (Hydromorphone Hcl 1 Mg/Ml Syringe) 0.5 mg IVPUSH Q4H PRN; Protocol PRN Reason: Pain, Severe (Pain Scale 7-10) Last Admin: 06/20/25 20:41 Dose: 0.5 mg Documented By: JOYCE Cefazolin Sodium/Dextrose (Ancef) 2 gm in 50 mls @ 100 mls/hr IV Q8H [facility] Last Infusion: 06/21/25 03:58 Dose: Infused Documented By: JOYCE Lidocaine (Lidocaine 4 % Patch Adh..Patch) 1 patch TRANSDERMA DAILY [facility]; Protocol Last Admin: 06/20/25 08:43 Dose: 1 patch Documented By: TARAH Magnesium Hydroxide (Milk Of Magnesia 30 Ml Oral.Susp) 30 ml PO DAILY PRN PRN Reason: Constipation Melatonin (Melatonin 3 Mg Tablet) 6 mg PO BEDTIME PRN PRN Reason: Insomnia Last Admin: 06/19/25 21:33 Dose: 6 mg Documented By: ERICA Methadone HCl (Methadone Hcl 20 Mg/2 Ml Oral.Conc) 140 mg PO DAILY@0800 [facility] Sodium Chloride (0.9 % Sodium Chloride Flush 3 Ml Syringe) 3 ml IVFLUSH QSHIFT [facility] Last Admin: 06/20/25 19:30 Dose: 3 ml Documented By: JOYCE Labs 06/20/25 06:49 06/20/25 06:49 Microbiology Microbiology Results: Microbiology 06/17/25 06:04 Blood Culture - Final Blood - Venous Staphylococcus aureus Assessment and Plan (1) Cellulitis of extremity: Status: Acute (2) Bradycardia: Status: Acute Plan 44-year-old female with a past medical history of Polysubstance dependence, IV opiates, cocaine, HCV untreated, history of MSSA bacteremia in 2022, and mood disorder who presented with fevers, and left forearm cellulitis subsequently found to have bacteremia. She is admitted for further care. Septic shock from LUE cellulitis due to ivda and MSSA bacteremia Initially with hypotension which resolved with IVF Treated initially with vancomycin. Blood cultures from 06/16 growing MSSA, antibiotic changed to cefazolin on 06/16 Surveillance blood cultures from 06/17 now growing 1/2 MSSA as well Repeat blood cultures pending Echo with no obvious vegetation Leukocytes trending down General surgery consulted for significant swelling in LUE, no intervention needed at this time History of Discitis/Osteomyelitis/Abscess in thoracic spine area status post surgery at [facility] CT of thoracic spine -can't rule out possibility of Discitis/osteomyeltits at T6, d/w radiology recommended against MRI as would likely have too much beam artifact from spine hardware ID consult placed and pending. Will likely need assisted IV Antibiotics Polysubstance dependence Methadone dose decreased to 100 mg daily due to Bradycardia in the 30s overnight despite split dosing. Sinus bradycardia Due to methadone Asymptomatic. Blood pressure stable See above HCV outpatient follow up Transaminitis Likely due to the above Trending down, outpatient follow-up DVT prophylaxis - lovenox CODE STATUS: FULL CODE Quality Stroke Does the patient have a stroke diagnosis?: No VTE Prior VTE?: No VTE Risk Level:: Medical - moderate - high VTE Device Contraindication: Treatment Not Indicated VTE Drug Contraindication: N/A - Med Ordered
[2025-06-21] MEDS: methADONE HCl 20 MG/2 ML ORAL.CONC 100 MG PO (09:39)
[2025-06-21] MEDS: 0.9 % Sodium Chloride Flush 3 ML SYRINGE IVFLUSH ×2 (09:41→15:31)
[2025-06-21] MEDS: Lidocaine 4 % Patch ADH..PATCH 1 PATCH TRANSDERMA (09:41)
[2025-06-21 11:41] VITALS: BP 128/70; PULSE 53; RESP 16; TEMP 36.2; O2SAT 96
--- NOTE | 2025-06-21 13:39 | HO.ADDICTPRO ---
Subjective Subjective Date of Service: 06/21/25 Reason For Visit: ivda Interim History: Patient seen in follow up for OUD, methadoen dose adjustments secondary to bradycardia Yesterday (06/20) dose was split--70mg in AM and 70mg in afternoon. RN reporting HR dropping to mid-high 30s when asleep and 50s when awake. Met with patient who can not recall this ever being an issue (low heart rate) Denies any dizziness or feeling lightheaded Discussed concern with low heart rate, and possibility of lowering dose to see if HR improves, patient verbalized understanding and is okay with dose reduction Reports that today is the first day she feels like she can move around without pain Reporting increased cravings for nicotine. Review of Systems Acute medical concerns: Yes Review of Systems Constitutional: Reports as per HPI and Reports no additional constitutional complaints Psychiatric: Reports other (some irritability ) Mental Status Exam Mental Status Exam Patient Appearance: Appropriate Patient Orientation: Person, Place, Time and Situation Level of Consciousness: Awake, Appropriate and Alert Patient Behavior: Appropriate and Talkative Affect Description: Calm Speech Pattern: Clear Hallucinations: None Judgement: Fair Diagnostics Vital Signs (24Hr): Vital Signs - 24 hr 06/20/25 15:05 06/20/25 18:18 06/20/25 19:21 Temperature 99.6 F 101 F H 99.4 F Pulse Rate 70 Respiratory Rate 20 Blood Pressure 164/92 H Pulse Oximetry 95 Oxygen Delivery Method Room Air 06/20/25 19:24 06/20/25 20:41 06/20/25 21:11 Temperature 99.4 F Pulse Rate 70 Respiratory Rate 18 18 16 Blood Pressure 164/72 H Pulse Oximetry 95 Oxygen Delivery Method Room Air 06/20/25 23:17 06/21/25 03:06 06/21/25 04:17 Temperature 96.8 F 97.5 F Pulse Rate 55 52 Respiratory Rate 18 18 16 Blood Pressure 146/70 H 136/62 Pulse Oximetry 93 95 Oxygen Delivery Method Room Air Room Air 06/21/25 07:21 06/21/25 11:41 Temperature 97.1 F 97.2 F Pulse Rate 45 L 53 Respiratory Rate 16 16 Blood Pressure 131/71 128/70 Pulse Oximetry 96 96 Oxygen Delivery Method Room Air Room Air BMI result Body Mass Index 26.4 Labs 06/20/25 06:49 06/20/25 06:49 Labs: Laboratory Results - last 48 hr 06/20/25 06:49 WBC 11.2 H RBC 3.25 L Hgb 9.3 L Hct 29.7 L MCV 91.4 MCH 28.6 MCHC 31.3 RDW 14.5 Plt Count 342 MPV 8.8 L Immature Gran % (Auto) Cancelled Neut % (Auto) Cancelled Lymph % (Auto) Cancelled [place] % (Auto) Cancelled Eos % (Auto) Cancelled Baso % (Auto) Cancelled Lymph # (Auto) Cancelled [place] # (Auto) Cancelled Eos # (Auto) Cancelled Baso # (Auto) Cancelled Abs Immat Gran (auto) Cancelled Absolute Neuts (auto) Cancelled Absolute Nucleated RBC 0.020 H Nucleated RBC % (auto) 0.2 Neutrophils % (Manual) 73 Band Neutrophils % 3 Lymphocytes % (Manual) 16 L Atypical Lymphs % (Man) 1 Monocytes % (Manual) 4 Myelocytes % 2 Promyelocytes % 1 Abs Neuts (Manual) 8.5 H Lymphocytes # (Manual) 1.8 Atyp Lymphs # (Manual) 0.1 Monocytes # (Manual) 0.4 Myelocytes # 0.2 Promyelocytes # 0.1 Toxic Granulation PRESENT Toxic Vacuolation PRESENT Dohle Bodies PRESENT Platelet Estimate NORMAL Plt Morphology Comment NORMAL RBC Morphology NOTED Polychromasia 2+ (3-5) Sodium 137 Potassium 3.9 Chloride 100 Carbon Dioxide 29 Anion Gap 12 BUN 11 Creatinine 0.51 Estim Creat Clear Calc 117.6 Estimated GFR > 60 Random Glucose 78 Calcium 8.4 Imaging Radiology Impressions: ITS Impressions Cervical Spine CT 06/16/25 07:10 IMPRESSION: No acute fracture or trauma-related listhesis. Fleischner guidelines were followed. Electronically signed by: Alexandre Germain MD 06/16/2025 08:50 AM EDT RP Face CT 06/16/25 07:10 IMPRESSION: No acute fracture. Probable old traumatic deformity, nasal bones. Nonspecific subcutaneous emphysema, submandibular compartment. Poor dentition. Electronically signed by: Alexandre Germain MD 06/16/2025 09:04 AM EDT RP Head CT 06/16/25 07:10 IMPRESSION: No acute fracture, bony calvarium. No acute intracranial hemorrhage. Electronically signed by: Alexandre Germain MD 06/16/2025 09:08 AM EDT RP Chest X-Ray 06/16/25 09:35 IMPRESSION: Mild interstitial edema in the correct clinical settings. Superimposed acute small airway inflammatory processes cannot be excluded. Electronically signed by: Alexandre Germain MD 06/16/2025 09:48 AM EDT Thoracic Spine CT 06/18/25 13:21 IMPRESSION: Again seen are postoperative changes with stabilization of the thoracic spine with posterior pedicle screws and rods placed between T3 and T11 following debridement/resection of remaining elements of T7 following discitis and osteomyelitis is present in October 2023. There is new soft tissue density in the left spinal or pleural space at this level (e.g. Ax CT#3 Im 61), an infectious etiology is not ruled out. Loculated 1.5 cm fluid in the right pleural/paraspinal space is similar to the most recent prior. The inferior endplate of T6 was previously well defined densely corticated. On the current examination, it is ill-defined and osteomyelitis/discitis is possible. Moderate superior endplate compression fracture of T12 has occurred since the March 2024 examination. The superior endplate of T12 shows mixed sclerosis and lucency suggesting healing. There is also minimal vacuum phenomena anteriorly in the disc space. The likelihood of infection is not entirely excluded. Bilateral layering pleural effusions, moderate on right and small left, with compressive atelectasis. No evidence of pneumonia. Fleischner guidelines were followed. Electronically signed by: Gonzalez Moyer MD 06/18/2025 02:22 PM EDT RP Medications Medications Current Medications Acetaminophen (Acetaminophen 325 Mg Tablet) 650 mg PO Q6H PRN PRN Reason: Pain, Mild 1-3,fever,headache Last Admin: 06/20/25 18:16 Dose: 650 mg Calcium Carbonate (Calcium Carbonate 750 Mg Tab.Chew) 750 mg PO Q4H PRN PRN Reason: Heartburn Enoxaparin Sodium (Enoxaparin Sodium 40 Mg/0.4 Ml Syringe) 40 mg SUBCUT Q24H ANA Last Admin: 06/21/25 09:40 Dose: 40 mg Hydromorphone HCl (Hydromorphone Hcl 1 Mg/Ml Syringe) 0.5 mg IVPUSH Q4H PRN; Protocol PRN Reason: Pain, Severe (Pain Scale 7-10) Last Admin: 06/20/25 20:41 Dose: 0.5 mg Cefazolin Sodium/Dextrose (Ancef) 2 gm in 50 mls @ 100 mls/hr IV Q8H [facility] Last Infusion: 06/21/25 11:52 Dose: Infused Lidocaine (Lidocaine 4 % Patch Adh..Patch) 1 patch TRANSDERMA DAILY [facility]; Protocol Last Admin: 06/21/25 09:41 Dose: 1 patch Magnesium Hydroxide (Milk Of Magnesia 30 Ml Oral.Susp) 30 ml PO DAILY PRN PRN Reason: Constipation Melatonin (Melatonin 3 Mg Tablet) 6 mg PO BEDTIME PRN PRN Reason: Insomnia Last Admin: 06/19/25 21:33 Dose: 6 mg Methadone HCl (Methadone Hcl 20 Mg/2 Ml Oral.Conc) 100 mg PO DAILY@0800 [facility] Sodium Chloride (0.9 % Sodium Chloride Flush 3 Ml Syringe) 3 ml IVFLUSH QSHIFT [facility] Last Admin: 06/21/25 09:41 Dose: 3 ml Allergies Allergies Allergy/AdvReac Type Severity Reaction Status Date / Time No Known Allergies Allergy Verified 06/15/25 23:03 Assessment & Plan Assessment & Plan (1) Opioid use disorder: Status: Acute Code(s): F11.90 - Opioid use, unspecified, uncomplicated Assessment and Plan: methadone dose decreased to 100mg QD due to significant bradycardia will continue to monitor and adjust methadone dosing as appropriate nicotine patches ordered Total time managing care of this patient today __35__ minutes.
[2025-06-21 15:20] VITALS: BP 130/67; PULSE 68; RESP 16; TEMP 37.1; O2SAT 94
[2025-06-21] MEDS: Nicotine 7 MG PATCH.TD24 TRANSDERMA (15:29)
--- NOTE | 2025-06-21 16:08 | MHC.CM.PN ---
EMR reviewed and per MD rounds, pt is not medically cleared for discharge due to management of bacteremia, with blood cultures pending. Pending ID consult.
--- NOTE | 2025-06-21 16:43 | W.PM.IDCN ---
History of Present Illness Data of Consult Service Date: 06/21/25 Requesting physician: Sadiq Hauser Primary Care Provider: None Physician HPI Reason for consult: MSSA bacteremia She presents with weakness,chills. She has MSSA bacteremia on 06/15 and 06/17. He has left forearm discomfort. He has used IV drugs cocaine and heroin left forearm. He has temperature to 101.2 Review of Systems Review of Systems: Yes all other systems are reviewed and are negative PMFSH Past Medical History Medical History Opioid use disorder Bacteremia Polysubstance use disorder Hepatitis C antibody positive in blood Cocaine abuse Heroin abuse PTSD (post-traumatic stress disorder) Depression Anxiety Opiate abuse, continuous Family History Family history: reviewed and not pertinent Social History Social History Household Members: None Housing: Homeless Do you presently have visiting nurse or other home services: No Alcohol intake: never Comment: patient refused bed alarm, education on fall risk measures and call ferrell Patient Tobacco Use Status: Current everyday Tobacco user Tobacco use type: Cigarette Cigarette Packs Per Day: 1 Cigarettes Per Day: 20.0 Years Smoked: 30 Second Hand Smoke Exposure: Yes Substance Use Type: Crack/Cocaine and Heroin Advance Directives Date on File: 10/03/23 service: No Meds Allergies Allergy/AdvReac Type Severity Reaction Status Date / Time No Known Allergies Allergy Verified 06/15/25 23:03 Active Medications: Current Medications Acetaminophen (Acetaminophen 325 Mg Tablet) 650 mg PO Q6H PRN PRN Reason: Pain, Mild 1-3,fever,headache Last Admin: 06/20/25 18:16 Dose: 650 mg Calcium Carbonate (Calcium Carbonate 750 Mg Tab.Chew) 750 mg PO Q4H PRN PRN Reason: Heartburn Enoxaparin Sodium (Enoxaparin Sodium 40 Mg/0.4 Ml Syringe) 40 mg SUBCUT Q24H ANA Last Admin: 06/21/25 09:40 Dose: 40 mg Hydromorphone HCl (Hydromorphone Hcl 1 Mg/Ml Syringe) 0.5 mg IVPUSH Q4H PRN; Protocol PRN Reason: Pain, Severe (Pain Scale 7-10) Last Admin: 06/20/25 20:41 Dose: 0.5 mg Cefazolin Sodium/Dextrose (Ancef) 2 gm in 50 mls @ 100 mls/hr IV Q8H [facility] Last Infusion: 06/21/25 11:52 Dose: Infused Lidocaine (Lidocaine 4 % Patch Adh..Patch) 1 patch TRANSDERMA DAILY [facility]; Protocol Last Admin: 06/21/25 09:41 Dose: 1 patch Magnesium Hydroxide (Milk Of Magnesia 30 Ml Oral.Susp) 30 ml PO DAILY PRN PRN Reason: Constipation Melatonin (Melatonin 3 Mg Tablet) 6 mg PO BEDTIME PRN PRN Reason: Insomnia Last Admin: 06/19/25 21:33 Dose: 6 mg Methadone HCl (Methadone Hcl 20 Mg/2 Ml Oral.Conc) 100 mg PO DAILY@0800 [facility] Methadone HCl (Methadone Hcl 20 Mg/2 Ml Oral.Conc) 10 mg PO DAILY PRN PRN Reason: Opiate Withdrawal Nicotine (Nicotine 7 Mg Patch.Td24) 7 mg TRANSDERMA DAILY [facility] Last Admin: 06/21/25 15:29 Dose: 7 mg Sodium Chloride (0.9 % Sodium Chloride Flush 3 Ml Syringe) 3 ml IVFLUSH QSHIFT [facility] Last Admin: 06/21/25 15:31 Dose: 3 ml Home Medications ?Medication ?Instructions ?Recorded ?Confirmed ?Last Taken ?Type methadone 10 mg/mL oral 140 mg PO DAILY 11/25/24 06/16/25 06/15/25 10:34 History concentrate (Methadone Intensol) Physical Exam Vital Signs: Vital Signs: Last Vital Signs Temp 98.7 F 06/21/25 15:20 Pulse 68 06/21/25 15:20 Resp 16 06/21/25 15:20 BP 130/67 06/21/25 15:20 Pulse Ox 94 06/21/25 15:20 O2 Del Method Room Air 06/21/25 15:20 O2 Flow Rate 1 06/16/25 14:54 BMI result Body Mass Index 26.4 Const: General: cooperative HEENT: Head: Yes normal to inspection Face and sinus: Yes normal facial exam Mouth: Normal oral and palatal mucosa present Teeth and gingiva: dentition normal Eyes: General: appearance normal, both eyes and all related structures Pupils: Equal, round and reactive pupils present Resp: Effort & Inspection: normal respiratory effort Cardio: Rate: regular rate Rhythm: regular rhythm GI: Palpation (GI): Soft to palpation and nontender : General: Yes no CVA tenderness Back/Spine/Pelvis: Back: no CVA tenderness Skin: General skin exam: no rashes or lesions noted Neuro: General: moves all extremities Cranial nerves: Yes Equal, round and reactive pupils present Extrem: Other: scabbing over arms and legs,left arm healing General: Yes normal to inspection Psych: Appearance: grossly normal Results Labs 06/20/25 06:49 06/20/25 06:49 Microbiology Microbiology Results: Microbiology 06/17/25 06:04 Blood - Venous Blood Culture - Final Staphylococcus aureus 06/17/25 06:04 Blood - Venous Blood Culture - Preliminary No growth after 48 hours. 06/16/25 00:11 Blood - Venous Blood Culture - Final Staphylococcus aureus 06/15/25 23:30 Blood - Venous Blood Culture - Final Staphylococcus aureus Assessment and Plan (1) Opioid use disorder: Status: Acute (2) MSSA bacteremia: Status: Acute Plan 4 weeks IV Kefzol (echo negative). Weekly CBC and creatinine. Check HIV and Hepatitis C viral load.
[2025-06-21 19:50] VITALS: BP 137/78; PULSE 87; RESP 16; TEMP 36.7; O2SAT 95
--- NOTE | 2025-06-21 20:00 | P.DS_ITS ---
DS: Providers Provider Date of Service: 06/21/25 Date of admission: 06/16/25 09:36 Date of discharge: 06/21/25 Primary care physician: None Physician Consults: 06/16/25 07:16 Consult to General Surgery Stat Consulting Provider: [facility] General Surgeons Reason for consultation: possible early necrotizing fasciitis 06/16/25 09:57 Addiction Medicine Provider Routine Consulting Provider: Addiction Covering Reason for consultation: polysubstance 06/16/25 15:15 Consult to Infectious Diseases Routine Consulting Provider: [facility] Infectious Disease Center Reason for consultation: ivda, bacteremia DS: Diagnosis Discharge Diagnosis (1) Opioid use disorder: Status: Acute (2) MSSA bacteremia: Status: Acute DS: Summary Hospital Course Hospital Course: LEFT AMA! admission hpi Chief Complaint: fevers 44F PMH polysubstance dependence, IV opiates, cocaine, HCV untreated, history of MSSA bacteremia in 2022, mood disorder presented with fevers. Patient states she has felt unwell for the past 2 days. Denies injecting into arms but left arm has become red swollen and tender. Reporting subjective fevers. In ED CAT scan of the arm showed cellulitis and edema without underlying abscess. Noted to be in septic shock requiring 30 cc/kilos IV fluids and briefly vasopressors. hospital course: 44-year-old female with a past medical history of Polysubstance dependence, IV opiates, cocaine, HCV untreated, history of MSSA bacteremia in 2022, and mood disorder who presented with fevers, and left forearm cellulitis subsequently found to haveeptic shock from LUE cellulitis due to ivda and MSSA bacteremia Initially with hypotension which resolved with IVF Treated initially with vancomycin. Blood cultures from 06/16 grew MSSA, antibiotic changed to cefazolin on 06/16 Surveillance blood cultures from 06/17 now growing 1/2 MSSA as well. Culture from 06/20 negative x 48 hrs Echo with no obvious vegetation Leukocytes trending down General surgery consulted for significant swelling in LUE, no intervention needed at this time ID recommended: 4 weeks IV Kefzol (echo negative). Weekly CBC and creatinine. Check HIV and Hepatitis C viral load. 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 Abx as above Polysubstance dependence Methadone dose decreased to 100 mg daily due to Bradycardia in the 30s overnight despite split dosing. Sinus bradycardia Due to methadone Asymptomatic. Blood pressure stable See above HCV outpatient follow up Transaminitis Likely due to the above Trending down, outpatient follow-up Patient left AMA on 06/21/25.. See note elsewhere Time Attestation Discharge Coordination Time (in mins): 20 Quality: Safe Use of Opioids Does Pt have an Active Cancer Diagnosis on the Problem List?: No Quality: Stroke Does the patient have a stroke diagnosis?: No Physical Exam Vital Signs: Vital Signs: Last Vital Signs Temp 98.0 F 06/21/25 19:50 Pulse 87 06/21/25 19:50 Resp 16 06/21/25 19:50 BP 137/78 06/21/25 19:50 Pulse Ox 95 06/21/25 19:50 O2 Del Method Room Air 06/21/25 19:50 O2 Flow Rate 1 06/16/25 14:54 BMI result Body Mass Index 26.4 DS: Data Data Completed and Pending Completed studies during hospitalization [Text1]: Procedures Drainage of Spinal Canal, Percutaneous Approach (09/19/23) Fluoroscopy of Spinal Cord (09/19/23) Insertion of Endotracheal Airway into Trachea, Via Natural or Artificial Opening (03/27/24) Insertion of Infusion Device into Lower Vein, Percutaneous Approach (03/27/24) Insertion of Infusion Device into Superior Vena Cava, Percutaneous Approach (03/27/24) Introduction of Vasopressor into Central Vein, Percutaneous Approach (03/27/24) Respiratory Ventilation, 24-96 Consecutive Hours (03/27/24) Ultrasonography of Superior Vena Cava, Guidance (03/27/24) Labs on day of discharge: Preliminary micro results at discharge 06/20/25 15:00 Blood Culture - Preliminary Blood - Venous No growth after 48 hours. 06/20/25 15:00 Blood Culture - Preliminary Blood - Venous No growth after 48 hours. Discharge Plan Discharge Anticipated Discharge Date/Time: 06/21/25 20:00 Patient Disposition: Left Against Medical Advice Discharge Diagnosis: Bacteremia Referrals: Physician,None [Primary Care Provider, Medical] - 1 Week Discharge Medications: No Action methadone [Methadone Intensol] 10 mg/mL Concentrate 140 mg PO DAILY Discharge Orders: Discharge Order (Routine); Ordered 06/21/25 Ordered By: Sadiq Hauser Diet: Advance to usual diet Print Language: Sami Care Plan Goals: left AMA Health Concerns: Left AMA Plan of Treatment: Left AMA Assessment: Left AMA Discharge Date/Time: 06/21/25 22:00
--- NOTE | 2025-06-21 21:54 | PM.EVENT ---
Event Note Date of Service: 06/21/25 Event Note: Against medical advice note: RN mentioned the patient for pain medication. To speak to the patient. Patient wanted Toradol which has been ordered. Patient mentions that she does not like it here and wants to leave against medical advice. I explained in detail about the patient's current health situation and the importance of staying in the hospital to continue treatment. And also explained risks involved in leaving against medical advice interrupting the therapy which not only include worsening conditions and may even need to . Patient verbalized she understood all the risks and she still does not want to stay in the hospital. Even after multiple reinforcement by myself and the nurse patient opted to leave against medical advice. Patient is given oral antibiotics for 2 weeks and urged to see her PCP in 3-5 days. Patient also advised to follow up with her methadone clinic. Time Spent With Patient Time: Total time managing care of this patient today ____ minutes.
--- NOTE | 2025-06-22 00:50 | PC.NURSE ---
Patient left hospital against medical advice. Patient c/o 9/10 back pain and was refusing pain medication previously ordered. This RN notified Provider and additional pain medication ordered. Following patient refusing any medication and stated she wanted to leave the hospital . Hospitalist notified and came to bedside to speak to patient Patient educated on the risks of leaving hospital without necessary treatment. Patient insisting on leaving despite information provided by Hospitalist and this RN. Patient stating she does not like this hospital. AMA paperwork signed , prescription for antibiotics given patient. IV and tele monitor removed.
== END 2025-06-21 22:00 | disposition left against medical advice (07) | DRG 720 ==
LOC: HO.ED 06-16 07:56 → HO.EDOVER 06-16 09:51 → HO.IMC 06-16 15:47
PROVIDERS: Emergency Medicine; Physician Assistant Medical; Admitting Provider Internal Medicine; Emergency Provider Emergency Medicine; Visit Provider Internal Medicine
DX: A41.9 Sepsis, unspecified organism (principal); R65.21 Severe sepsis with septic shock; F17.210 Nicotine dependence, cigarettes, uncomplicated; B19.20 Unspecified viral hepatitis C without hepatic coma; F11.20 Opioid dependence, uncomplicated; R00.1 Bradycardia, unspecified; Z71.6 Tobacco abuse counseling; W19.XXXA Unspecified fall, initial encounter; B95.61 Methicillin susceptible Staphylococcus aureus infection as the cause of diseases classified elsewhere; L03.114 Cellulitis of left upper limb; F19.20 Other psychoactive substance dependence, uncomplicated; Z20.822 Contact with and (suspected) exposure to COVID-19; Z79.899 Other long term (current) drug therapy
CPT/HCPCS: 36415; 70450; 70486; 71045; 72125; 72129; 73201; 80048; 80053; 80076; 80307; 81001; 81003; 82550; 82565; 83605; 83735; 84484; 85007; 85025; 85027; 85652; 86140; 87040; 87077; 87147; 87186; 87205; 87637; 93005; 93306; 99285; J0131; J0690; J0736; J1171; J1650; J1885; J2543; J3374; J7120; P9047; Q9967; S9485

== ENCOUNTER → 2025-06-16 00:01 | Outpatient (BNV) | payer OTHER, SELFPAY | PROVIDERS: Emergency Provider Emergency Medicine; Visit Provider Radiology Diagnostic Radiology | DX: L03.114 Cellulitis of left upper limb (principal); M54.2 Cervicalgia; K04.7 Periapical abscess without sinus; R51.9 Headache, unspecified; R50.9 Fever, unspecified | CPT/HCPCS: 70450; 70486; 71045; 72125; 73201 ==

== ENCOUNTER → 2025-06-16 06:23 | Outpatient (BNV) | payer OTHER, SELFPAY | PROVIDERS: Admitting Provider Internal Medicine; Emergency Provider Emergency Medicine; Visit Provider Internal Medicine Cardiovascular Disease | DX: R78.81 Bacteremia (principal); R00.1 Bradycardia, unspecified | CPT/HCPCS: 93010; 93306 ==

== ENCOUNTER 2025-06-16 09:36 | Outpatient (BNV) | payer OTHER, SELFPAY | END 2025-06-17 09:16 | PROVIDERS: Admitting Provider Internal Medicine; Emergency Provider Emergency Medicine; Visit Provider Internal Medicine Cardiovascular Disease | DX: R00.1 Bradycardia, unspecified (principal) | CPT/HCPCS: 93010 ==

== ENCOUNTER 2025-06-16 09:36 | Outpatient (BNV) | payer OTHER, SELFPAY | END 2025-06-18 13:21 | PROVIDERS: Admitting Provider Internal Medicine; Emergency Provider Emergency Medicine; Visit Provider Radiology Diagnostic Radiology | DX: J90 Pleural effusion, not elsewhere classified (principal) | CPT/HCPCS: 72129 ==

== ENCOUNTER → 2025-06-16 09:36 | Outpatient (BNV) | payer OTHER, SELFPAY | PROVIDERS: Admitting Provider Internal Medicine; Emergency Provider Emergency Medicine; Visit Provider Nurse Practitioner Psychiatric/Mental Health | DX: F11.90 Opioid use, unspecified, uncomplicated (principal) | CPT/HCPCS: 99232 ==

== ENCOUNTER → 2025-06-16 09:36 | Outpatient (BNV) | payer OTHER, SELFPAY | PROVIDERS: Admitting Provider Internal Medicine; Emergency Provider Emergency Medicine; Visit Provider Internal Medicine | DX: L03.114 Cellulitis of left upper limb (principal); R00.1 Bradycardia, unspecified | CPT/HCPCS: 99223; 99232; 99239; 99499 ==

== ENCOUNTER → 2025-06-16 09:36 | Outpatient (BNV) | payer OTHER, SELFPAY | PROVIDERS: Admitting Provider Internal Medicine; Emergency Provider Emergency Medicine; Visit Provider Physician Assistant Surgical | DX: L03.114 Cellulitis of left upper limb (principal) | CPT/HCPCS: 99222; 99232; 99499 ==

== ENCOUNTER → 2025-06-16 09:36 | Outpatient (BNV) | payer OTHER, SELFPAY | PROVIDERS: Admitting Provider Internal Medicine; Emergency Provider Emergency Medicine; Visit Provider Internal Medicine | DX: R78.81 Bacteremia (principal); B95.61 Methicillin susceptible Staphylococcus aureus infection as the cause of diseases classified elsewhere; F11.90 Opioid use, unspecified, uncomplicated | CPT/HCPCS: 99232 ==

== ENCOUNTER 2025-06-26 16:01 | Inpatient (IN) | payer OTHER, SELFPAY ==
[2025-06-26] VITALS (24 sets, daily range): BP systolic 74–112; BP diastolic 38–67; PULSE 56–103; RESP 14–27; TEMP 36–39.4; O2SAT 96–100; BMI 23.2
--- NOTE | ~2025-06-26 | CT_ITS ---
CLINICAL HISTORY: T6 abscess IVDA CT thoracic spine with IV contrast. COMPARISON: CT thoracic spine dated 06/18/25 at 13:21 EDT FINDINGS: Posterior spinal fixation hardware bridges the T3, T4, T5, T8, T9 and T10 vertebral bodies. Hardware appears in stable position without evidence of loosening. Screw present within the intervertebral disc space at T3-4 on the left. Stable mild superior compression fracture of the T11 vertebral body. Stable wedge compression fracture of the T12 vertebral body with approximately 50 percent. No retropulsion into the canal. Paravertebral soft tissue fullness present extending from the T8 through T6 levels. This is most pronounced on the left T7 where there are erosions of the T7 vertebral body. This appears slightly improved from prior imaging. Erosions of the T6 and T7 vertebral bodies appears similar to prior imaging. No new erosions identified. Interval resolution of previously seen pleural effusions along the medial lungs bilaterally. Healed posterior right 7th rib fracture. No organizing fluid collection identified although artifact from fixation hardware limits evaluation. IMPRESSION: 1. Interval resolution of previously seen bilateral pleural effusions. There is persistent soft tissue fullness along the T6 through T8 levels suggestive of paraspinal phlegmon. No organizing or drainable fluid collection identified. Erosions of the T6 and T7 vertebral bodies appear similar to prior imaging. No new erosions identified. 2. Stable wedge compression fracture of the T12 vertebral body with approximately 50 percent height loss. 3. Posterior spinal fixation hardware bridges the T3 through T10 vertebral bodies. No evidence of hardware complication. This document has been electronically signed by: Jesus Alberto Jacobo MD on 06/26/2025 20:57:31
--- NOTE | ~2025-06-26 | CT_ITS ---
EXAMINATION: CT fluoroscopy guided left psoas hematoma/abscess drainage. CLINICAL HISTORY: Left psoas hematoma/abscess. COMPARISON: CT abdomen and pelvis without contrast 06/26/2025. TECHNIQUE: Following explaining CT fluoroscopy guided left psoas abscess/hematoma drainage and catheter placement procedure, benefits and risk, a written consent was obtained. Patient was placed in's MRI lateral decubitus view and CT imaging was obtained through the abdomen and pelvis. Markers were placed on an optimal slice and repeat imaging obtained. An optimal marker was selected on that slice and marked on the skin. The marked area was cleaned and draped with 2% chlorhexidine solution. 1% lidocaine was injected puncture site. Through a small skin incision a 5 [place] long Yueh catheter was advanced from the skin into the left psoas collection. After observing fluid return a 0.035 J-wire was advanced and catheter withdrawn. A 10 [place] APD catheter with stiffener was advanced over the guidewire. The stiffener was loosened as soon as the catheter sideholes were inside the abdominal wall. The catheter was advanced over the stiffener with guidewire held study. The guidewire and the stiffener were removed and repeat CT imaging was performed. After confirming tip of the catheter within the collection, a pigtail was formed. The catheter was connected to suction bulb with connecting cannula. The catheter was anchored to the skin with two 3-0 nonabsorbable two sutures. Sterile dressing applied post procedure. Patient tolerated procedure extremely well. Conscious sedation was administered during exam and patient monitored by our nurse and IR physician during exam. FINDINGS: On preliminary CT imaging there is a left psoas collection measuring approximately 30 Hounsfield units. It could be that masses or hematoma or both. Approximately 10 [place] APD catheter was left in left psoas collection connected to suction bulb. CT/CT guided drainage IMPRESSION: Successful CT fluoroscopy guided placement of 10 [place] APD catheter left psoas collection. Predominantly drainage was hemorrhagic or seroma initially and mixed density. Approximately 30 mL of collection was removed. Part of this fluid was sent to lab for culture, sensitivity, anaerobic and Gram stain Electronically signed by: Main Rey MD 06/28/2025 04:11 PM EDT
--- NOTE | ~2025-06-26 | CT_ITS ---
CLINICAL HISTORY: sepsis - PT INJECTED @[address] T-SPINE CT abdomen and pelvis without contrast Comparison: None provided Findings: The lung bases are clear. Heart size is enlarged. There is hepatosplenomegaly. Spleen measures 17 cm in length. Gallbladder, kidneys, adrenal glands and pancreas are unremarkable within the limitations of patient motion. There is contrast material within the collecting systems and the urinary bladder. No hydronephrosis. No bowel obstruction, pneumoperitoneum, or pneumatosis. Moderate fecal loading throughout the colon. Pelvic contents unremarkable. Normal appendix. Old T12 compression deformity. Partially visualized thoracic hardware terminating at T11. There is asymmetric enlargement of the left psoas muscle with central low attenuation. This collection within the psoas muscle measures 5.2 x 5.0 x 12.4 cm IMPRESSION: 1. Low-attenuation collection within the left psoas muscle measuring 5.2 x 5.0 x 12.4 cm which could be abscess or hematoma or mass. 2. Hepatosplenomegaly. This document has been electronically signed by: Haresh Quiroga MD on 06/27/2025 00:26:04
--- NOTE | 2025-06-26 16:23 | ED.ABDPAIN ---
HPI - Abdominal Pain General Chief Complaint: Abdominal Pain Stated Complaint: back pain & R side stomach pain Time Seen by Provider: 06/26/25 16:23 Related Data Home Medications ?Medication ?Instructions ?Recorded ?Confirmed methadone 10 mg/mL oral 140 mg PO DAILY 11/25/24 06/16/25 concentrate (Methadone Intensol) Allergies Allergy/AdvReac Type Severity Reaction Status Date / Time No Known Allergies Allergy Verified 06/26/25 16:23 [facility] Past Medical History Medical History Opioid use disorder Bacteremia Polysubstance use disorder Hepatitis C antibody positive in blood Cocaine abuse Heroin abuse PTSD (post-traumatic stress disorder) Depression Anxiety Opiate abuse, continuous Social History Social History Household Members: None Housing: Homeless Do you presently have visiting nurse or other home services: No Alcohol intake: never Comment: pt refusing bed alarm and staff assistance Patient Tobacco Use Status: Current everyday Tobacco user Tobacco use type: Cigarette Cigarette Packs Per Day: 1 Cigarettes Per Day: 20.0 Years Smoked: 30 Second Hand Smoke Exposure: Yes Substance Use Type: Crack/Cocaine and Heroin Advance Directives Date on File: 10/03/23 service: No Discharge Plan Discharge Prescriptions: No Action methadone [Methadone Intensol] 10 mg/mL Concentrate 140 mg PO DAILY Print Language: Maori
--- NOTE | 2025-06-26 16:43 | ED.GENADULT ---
HPI - General Adult General Chief complaint: Abdominal Pain Stated complaint: back pain & R side stomach pain Time Seen by Provider: 06/26/25 16:23 Source: patient Mode of arrival: ambulatory Limitations: no limitations History of Present Illness ED Provider: HPI narrative: 44F PMH polysubstance dependence, IVDA opiates, cocaine, HCV untreated, history of MSSA bacteremia, mood disorder history of diskitis/osteomyelitis abscess in thoracic spine at T6 status post surgery in 07/2023 just finished with left against medical advice on 06/18 for left forearm cellulitis with positive blood culture for MSSA patient supposed to get IV cefazolin for 6 weeks but left against medical advice and did not take her any medication now comes here with upper back pain and noted to be febrile fever of 102.9 Related Data Home Medications ?Medication ?Instructions ?Recorded ?Confirmed methadone 10 mg/mL oral 140 mg PO DAILY 11/25/24 06/16/25 concentrate (Methadone Intensol) Allergies Allergy/AdvReac Type Severity Reaction Status Date / Time No Known Allergies Allergy Verified 06/26/25 16:23 Review of Systems Review of Systems: Yes all other systems are reviewed and are negative PMFSH Past Medical History Medical History Opioid use disorder Bacteremia Polysubstance use disorder Hepatitis C antibody positive in blood Cocaine abuse Heroin abuse PTSD (post-traumatic stress disorder) Depression Anxiety Opiate abuse, continuous Social History Social History Household Members: Other Housing: Homeless Do you presently have visiting nurse or other home services: No Unable to assess alcohol history related to: Unknown Alcohol intake: never Comment: pt refusing bed alarm and staff assistance Patient Tobacco Use Status: Current everyday Tobacco user Tobacco use type: Cigarette Cigarette Packs Per Day: 1 Cigarettes Per Day: 20.0 Years Smoked: 30 Smoked in Last 30 Days: Yes e-Cigarette/Vaping Use: Never Used Second Hand Smoke Exposure: Yes Substance Use Type: Heroin and Opiates Advance Directives: Yes Advance Directives on File: Yes Advance Directives Date on File: 10/03/23 Recently lost weight without trying: Unsure Nutrition Risks: Dental problems and Poor intake 0-25% >4 days Patient : No Poor oral hygiene: Yes service: No Physical Exam ED Vital Signs: Vital Signs - 24 hr 06/26/25 16:20 06/26/25 18:12 06/26/25 18:17 Temperature 102.9 F H 100 F Pulse Rate 103 H 86 Respiratory Rate 22 H 27 H Blood Pressure 112/59 L 81/47 L 92/54 L Pulse Oximetry 98 96 Oxygen Delivery Method Room Air Room Air Oxygen Flow Rate 06/26/25 19:39 06/26/25 20:19 06/26/25 20:29 Temperature 98.4 F Pulse Rate 73 Respiratory Rate 20 Blood Pressure 91/49 L 75/39 L 74/38 L Pulse Oximetry 96 Oxygen Delivery Method Room Air Oxygen Flow Rate 06/26/25 20:49 06/26/25 20:53 06/26/25 21:16 Temperature Pulse Rate Respiratory Rate Blood Pressure 79/47 L 82/47 L 100/60 Pulse Oximetry 97 Oxygen Delivery Method Nasal Cannula Oxygen Flow Rate 2 06/26/25 21:21 06/26/25 21:26 06/26/25 21:33 Temperature Pulse Rate Respiratory Rate Blood Pressure 76/46 L 83/45 L 92/49 L Pulse Oximetry 100 Oxygen Delivery Method Nasal Cannula Oxygen Flow Rate 2 06/26/25 21:34 06/26/25 21:44 06/26/25 21:45 Temperature Pulse Rate 69 Respiratory Rate Blood Pressure 88/46 L 92/56 L 88/46 L Pulse Oximetry Oxygen Delivery Method Oxygen Flow Rate 06/26/25 21:50 06/26/25 21:55 06/26/25 22:00 Temperature Pulse Rate 70 61 61 Respiratory Rate Blood Pressure 82/55 L 88/47 L 81/57 L Pulse Oximetry Oxygen Delivery Method Oxygen Flow Rate 06/26/25 22:09 Temperature Pulse Rate Respiratory Rate Blood Pressure 94/59 L Pulse Oximetry Oxygen Delivery Method Oxygen Flow Rate BMI result Body Mass Index 23.2 Appearance: Alert. Oriented X3. No acute distress. Eyes: PERRLA, No Nystagmus ENT: Pharynx normal. Oral Mucosa moist Neck: Normal inspection. Neck supple. CVS: Normal heart rate and rhythm. Pulses normal. Respiratory: No respiratory distress. Equal air entry bilateral, no wheezing/rales/rhonchi Abdomen: Soft and nontender. Bowel sounds are present, no mass palpable, no CVA tenderness Skin: Skin warm and dry. Normal skin color. Normal skin turgor. Extremities: No lower extremity edema. No calf tenderness IVDA track castaneda Neuro: Oriented X 3. No motor deficit. No sensory deficit.No cerebellar signs , cranial nerves II-XII intact Medications Administered Generic Name Dose Route Start Last Admin Trade Name Frerin PRN Reason Stop Dose Admin Enoxaparin Sodium 40 mg 06/26/25 22:15 06/26/25 22:56 Enoxaparin Sodium 40 Mg/0.4 Ml Syringe SUBCUT 40 mg Q24H ANA Administration Norepinephrine Bitartrate 8 mg in 250 mls @ 0 mls/hr 06/26/25 21:00 06/27/25 00:45 Levophed IVCONT 0.08 mcg/kg/min .Q0M ANA 8.1 mls/hr Protocol Titration Per Protocol Lactated Ringer's 1,000 mls @ 100 mls/hr 06/27/25 01:00 06/27/25 01:07 Lr IVCONT 100 mls/hr .Q10H ANA Administration Discontinued Medications Generic Name Dose Route Start Last Admin Trade Name Erik PRN Reason Stop Dose Admin Cefazolin Sodium/Dextrose 2 gm in 50 mls @ 100 mls/hr 06/26/25 16:47 06/26/25 17:28 Ancef IV 06/26/25 17:16 Infused ONCE ONE Infusion Sodium Chloride 1,000 mls @ 999 mls/hr 06/26/25 16:47 06/26/25 20:26 Ns IV 06/26/25 17:47 Infused .Q1H1M ONE Infusion Acetaminophen 1,000 mg in 100 mls @ 400 mls/hr 06/26/25 17:41 06/26/25 18:40 Ofirmev IV 06/26/25 17:55 Infused ONCE ONE Infusion Sodium Chloride 2,000 mls @ 2,000 mls/hr 06/26/25 17:42 06/26/25 20:27 Ns IV 06/26/25 18:41 Infused .Q1H STA Infusion Sodium Chloride 1,000 mls @ 999 mls/hr 06/26/25 20:41 06/26/25 22:04 Ns IV 06/26/25 21:41 Infused .Q1H1M ONE Infusion Albumin Human 100 mls @ 133.333 mls/hr 06/26/25 20:45 06/26/25 23:19 Kedbumin 25 % IV 06/26/25 22:29 Infused Q1H ANA Infusion Vancomycin HCl 1,250 mg/ 250 mls @ 166.667 mls/hr 06/26/25 22:30 06/27/25 01:02 Sodium Chloride IV 06/26/25 23:59 Infused ONCE ONE Infusion Albumin Human 100 mls @ 133.333 mls/hr 06/26/25 23:00 06/27/25 00:55 Kedbumin 25 % IV 06/27/25 00:44 Infused Q1H ANA Infusion Iohexol 100 ml 06/26/25 19:35 06/26/25 19:36 Iohexol 350 Mg/Ml 100 Ml Infus..Btl IV 06/26/25 19:36 85 ml ONCE ONE Administration Ketorolac Tromethamine 15 mg 06/26/25 17:43 06/26/25 17:49 Ketorolac Tromethamine 15 Mg/Ml Vial IVPUSH 06/26/25 17:44 15 mg ONCE ONE Administration Procedures Procedure Narrative Procedure Narrative: Ultrasound-guided IV 18 gauge 1-3/4 inch IV placed in left upper extremity. Adequate blood return, flushes well secured with Tegaderm Performed by Erika Buck PA-C Medical Decision Making Medical Decision Making MDM Narrative: 2030 informed by the nurse that patient has been having low blood pressure for last 1 hour blood pressure low 80s will give another saline bolus also will give her albumin,started on Levophed drip will admit to ICU Differential Diagnosis Differential Diagnoses: The differential diagnosis associated with the presentation includes Admission/Observation Consideration of admission/observation: Escalation of care including admission/observation considered Consult Healthcare Provider Management of the patient was discussed with: Circular [facility] Lab Data [facility] Lab Attestation statement: I reviewed the patient's lab results. 06/27/25 00:26 06/27/25 00:26 Labs: Lab Results 06/26/25 06/26/25 Range/Units 16:52 20:00 WBC 14.8 H (4.8-10.8) X10*3/uL RBC 3.23 L (4.20-5.50) X10*6/uL Hgb 9.1 L (12.0-16.0) g/dl Hct 29.0 L (37.0-47.0) % MCV 89.8 (80.0-98.0) fL MCH 28.2 (27.0-33.0) pg MCHC 31.4 (31.0-35.0) g/dl RDW 14.6 (11.0-16.0) % Plt Count 484 H D (160-400) X10*3/uL MPV 8.6 L (9.4-12.3) fL Immature Gran % (Auto) 1.1 H (0.0-0.4) % Neut % (Auto) 96.0 H (45-73) % Lymph % (Auto) 2.5 L (20-40) % Fisher % (Auto) 0.2 L (2-11) % Eos % (Auto) 0.0 (0-4) % Baso % (Auto) 0.2 (0-2) % Lymph # (Auto) 0.4 L (1.2-4.9) X10*3/uL Fisher # (Auto) 0.0 L (0.1-1.2) X10*3/uL Eos # (Auto) 0.0 (0.0-0.4) X10*3/uL Baso # (Auto) 0.0 (0.0-0.2) X10*3/uL Abs Immat Gran (auto) 0.16 H (0.00-0.03) X10*3/uL Absolute Neuts (auto) 14.3 H (2.0-8.3) x10*3/uL Absolute Nucleated RBC 0.000 (0.0-0.012) X10*3/uL Nucleated RBC % (auto) 0.0 (0.0-0.2) /100WBC Smear Tech's Comments VERIFIED ESR 109 H (0-20) MM/HR Sodium 135 (135-145) mmol/L Potassium 3.9 (3.3-5.1) mmol/L Chloride 100 (96-108) mmol/L Carbon Dioxide 26 (22-29) mmol/L Anion Gap 13 (12-20) BUN 27 H (9-16) mg/dL Creatinine 1.15 (0.5-1.4) mg/dL Estim Creat Clear Calc 45.7 Estimated GFR 52 Random Glucose 64 (60-115) mg/dL Lactic Acid 3.4 H* (0.5-2.0) mmol/L Lactic Acid F/U @ 2Hr 1.5 (0.5-2.0) mmol/L Calcium 8.2 L (8.4-10.2) mg/dL Total Bilirubin 0.5 (0.0-1.0) mg/dL AST 57 H (5-31) U/L ALT 22 (0-31) U/L Alkaline Phosphatase 134 H (39-117) U/L C-Reactive Protein 8.55 H (< or = 0.50) mg/dL Total Protein 8.3 H (6.5-8.0) g/dL Albumin 3.0 L (3.5-5.0) g/dL Independent Interpretation I performed an independent interpretation of an: CT Scan Radiology Impression Discussion of test interpretation with radiology: I have reviewed the radiologist's reading. Radiologist Impression: [place] [id number] CT Scan Report Signed Patient: Norma Chiang MR#: [id number] : 1980 Acct:[id number] Age/Sex: 44 / F ADM Date: 06/26/25 Loc: HO.ED Attending Dr: Ordering Physician: Jung Lepe MD Date of Service: 06/26/25 Procedure(s): CT thoracic spine w IV con Accession Number(s): [id number] cc: Physician,Unknown ; Jung Lepe MD~ Report Number: [id number]: Total DLP = 376.00 mGy-cm CLINICAL HISTORY: T6 abscess IVDA CT thoracic spine with IV contrast. COMPARISON: CT thoracic spine dated 06/18/25 at 13:21 EDT FINDINGS: Posterior spinal fixation hardware bridges the T3, T4, T5, T8, T9 and T10 vertebral bodies. Hardware appears in stable position without evidence of loosening. Screw present within the intervertebral disc space at T3-4 on the left. Stable mild superior compression fracture of the T11 vertebral body. Stable wedge compression fracture of the T12 vertebral body with approximately 50 percent. No retropulsion into the canal. Paravertebral soft tissue fullness present extending from the T8 through T6 levels. This is most pronounced on the left T7 where there are erosions of the T7 vertebral body. This appears slightly improved from prior imaging. Erosions of the T6 and T7 vertebral bodies appears similar to prior imaging. No new erosions identified. Interval resolution of previously seen pleural effusions along the medial lungs bilaterally. Healed posterior right 7th rib fracture. No organizing fluid collection identified although artifact from fixation hardware limits evaluation. IMPRESSION: 1. Interval resolution of previously seen bilateral pleural effusions. There is persistent soft tissue fullness along the T6 through T8 levels suggestive of paraspinal phlegmon. No organizing or drainable fluid collection identified. Erosions of the T6 and T7 vertebral bodies appear similar to prior imaging. No new erosions identified. 2. Stable wedge compression fracture of the T12 vertebral body with approximately 50 percent height loss. 3. Posterior spinal fixation hardware bridges the T3 through T10 vertebral bodies. No evidence of hardware complication. This document has been electronically signed by: Jesus Alberto Jacobo MD on 06/26/2025 20:57:31 Critical Care Time Critical Care Time Critical Care Time: Yes Total Critical Care Time: 65 Attestation: Time is exclusive of separately billable procedures. Time includes: direct patient care, patient reassessment, coordination of patient care, interpretation of data (laboratory data, pulse oximetry, arterial blood gases and chest xrays), review of patient's medical records, medical consultation and documentation of patient care. Procedures excluded from critical care time: central intravenous line placement and electrocardiography. Discharge Plan Discharge Clinical Impression: Bacteremia, Substance abuse, Back pain Patient Disposition: Admitted As Inpatient Interventions: Admission Worksheet (ED) Last Done: 06/26/25 23:16 Discharge Date/Time: 06/26/25 23:49
--- NOTE | 2025-06-26 16:56 | PC.NURSE ---
Addendum entered by Maria Elena Barnett RN 06/26/25 16:56: Patient is a 44F PMH polysubstance dependence, IV opiates, cocaine, HCV untreated, history of MSSA bacteremia in 2022, mood disorder presented with fever and back pain. Recently admitted with left arm has become red swollen and tender. Reporting subjective fevers. In ED CAT scan of the arm showed cellulitis and edema without underlying abscess. Noted to be in septic shock requiring 30 cc/kilos IV fluids and briefly vasopressors. Patient ended up leaving AMA. Noted to be homeless and lives gerda tent. Lungs clear bilat. Respirations even and non-labored. Abdomen sl firm, distended with c/o pelvic pain. Positive pedal pulses with no edema. Left arm remains sl red, swollen and warm. Original Note: Medical History Opioid use disorder Bacteremia Polysubstance use disorder Hepatitis C antibody positive in blood Cocaine abuse Heroin abuse PTSD (post-traumatic stress disorder) Depression Anxiety Opiate abuse, continuous
[2025-06-26 17:13] LABS: Hematocrit 29.0 % (37.0-47.0); Hemoglobin 9.1 g/dl (12.0-16.0); Imm Gran Abs Auto 0.16 X10*3/uL (0.00-0.03); Imm Gran Pct Auto 1.1 % (0.0-0.4); Lymphocytes Absolute Auto 0.4 X10*3/uL (1.2-4.9); MANUAL DIFF FLAG SCAN; Mean Corpuscular HGB Conc 31.4 g/dl (31.0-35.0); Mean Corpuscular Hemoglobin 28.2 pg (27.0-33.0); Mean Corpuscular Volume 89.8 fL (80.0-98.0); NRBC Abs Auto 0.000 X10*3/uL (0.0-0.012); NRBC Pct Auto 0.0 /100WBC (0.0-0.2); Platelet Count 484 X10*3/uL (160-400); Red Blood Count 3.23 X10*6/uL (4.20-5.50); SCAN SMEAR FLAG 1; White Blood Count 14.8 X10*3/uL (4.8-10.8)
[2025-06-26 17:24] LABS: Alanine Aminotransferase 22 U/L (0-31); Albumin Level 3.0 g/dL (3.5-5.0); Alkaline Phosphatase 134 U/L (39-117); Anion Gap 13 (12-20); Aspartate Amino Transferase 57 U/L (5-31); Blood Urea Nitrogen 27 mg/dL (9-16); Calcium 8.2 mg/dL (8.4-10.2); Carbon Dioxide 26 mmol/L (22-29); Chloride 100 mmol/L (96-108); Creatinine Clr Calc Pharmacy 45.7; Estimated Glomerular Filt Rate 52; Potassium 3.9 mmol/L (3.3-5.1); Sodium 135 mmol/L (135-145); Total Protein 8.3 g/dL (6.5-8.0)
--- NOTE | 2025-06-26 18:37 | PC.NURSE ---
IVF fluids still running.
[2025-06-26 19:03] LABS: Reflex Lactate? Lactic Acid Added
--- NOTE | 2025-06-26 19:20 | PC.NURSE ---
Fluids IVF paused for imaging.
--- NOTE | 2025-06-26 19:31 | PC.NURSE ---
PT back from CT scan, reconnected to IVF.
[2025-06-26] MEDS: iohexoL 350 MG/ML 100 ML INFUS..BTL IV (19:36)
[2025-06-26 20:27] LABS: ~Lactic Acid-LAB USE ONLY 1.5 mmol/L (0.5-2.0)
--- NOTE | 2025-06-26 20:30 | PC.NURSE ---
2 BP's taken provider notified of BP.
--- NOTE | 2025-06-26 20:39 | PC.NURSE ---
Provider notified of PT's BP's, Provider at bedside.Verbal order for another IVF 0.9% NS 1000ml bag.
--- NOTE | 2025-06-26 20:46 | PC.NURSE ---
Pt O2 sats at 88% RA, pt placed on 2L NC, 02 currently 98% NC
[2025-06-26] MEDS: Albumin Human 25 % 100 ML 133.33 ML IV ×3 (20:57→22:56)
--- NOTE | 2025-06-26 21:16 | PC.NURSE ---
May on hold per Dr. Thomas as BP has improved to 100/60 Map 73.
--- NOTE | 2025-06-26 22:33 | PM.CCHP ---
History of Present Illness Date of Service: 06/26/25 Attending physician on admission: Al Alexandra Chief Complaint: Acute septic shock 44-year-old female with long history of IV drug abuse, history of diskitis, osteomyelitis and thoracic spine abscess status post surgery at [facility] in July of 2023 who was admitted on 06/16/2025 and left AMA on 7 07/14/2025.? Patient had been admitted for acute MSSA bacteremia of which she had a previous episode in 2022.? She was found to be in septic shock for which she was treated with IV fluids and vasopressors, antibiotics, she had edema, tenderness the setting of left arm cellulitis.? She had been initially treated with vancomycin and switch to cefazolin based on initial cultures which subsequently became negative.? Echocardiogram showed no vegetation.? Infectious Disease recommended Kefzol for 4 weeks.; however since the patient left, she admits that she did not take her medications.? She has continued to use drugs and receive her methadone at the same time. Today she returned to the emergency room complaining of back pain 8/10 in the midthoracic spine, localized, nonradiating, having a sensation of fever and with a documented temperature of 102.9 degrees upon arrival to the ER.? Initially normotensive but tachycardic and tachypneic and subsequently the patient became hypotensive with the lowest blood pressure of 74/38, the patient had received a total of 4 L of IV fluids without much improvement of her blood pressure and placed on pressors.? She was given cefepime.? Her workup revealed a white count of 14.8, H and H of 9.1 and 29 respectively, platelets 484, unremarkable electrolytes and a BUN to creatinine ratio of 23, lactic acid 3.4 which decreased to 1.5.? CRP of 8.55.? Urinalysis negative for infection, urine toxicology screen positive for opioids, methadone, fentanyl cocaine and marijuana.? Thoracic spine CT with contrast shows persistence of tissue fullness along T6 through T8 suggestive of paraspinal phlegmon.? No organizing or drainable fluid collection.? Erosions of T6 and T7 vertebral bodies similar to prior.? Stable compression fractures of T12 vertebral bodies with 50% height lost.? Posterior spinal fixation hardware bridges T8 through T10 vertebral bodies. Given ongoing hypotension the patient will be admitted to the ICU. Review of Systems Review of Systems: Review of systems: As above, otherwise the patient denies any prior history of strokes, cold intolerance, migraine headaches, head trauma, no eyes, ears or nose problems, no problems swallowing or with phonation, no thyroid disease, denies any history of chest pain, palpitations, coronary disease, cough, sputum production, pneumonia, bronchitis, COPD or emphysema, she states she had some abdominal pain but got better with eating, denies nausea, vomiting, diarrhea, abdominal surgeries, melena, hematochezia, hematemesis, hematuria, kidney stones, liver problems, , no history of DVT or PE, leg edema, admits having left ankle surgery due to fracture. Thoracic spine surgery as noted above. Otherwise the review of systems negative Yes all other systems are reviewed and are negative PMFSH Past Medical History Medical History Opioid use disorder Bacteremia Polysubstance use disorder Hepatitis C antibody positive in blood Cocaine abuse Heroin abuse PTSD (post-traumatic stress disorder) Depression Anxiety Opiate abuse, continuous Social History Social History Household Members: Other Housing: Homeless Do you presently have visiting nurse or other home services: No Unable to assess alcohol history related to: Unknown Alcohol intake: never Comment: pt refusing bed alarm and staff assistance Patient Tobacco Use Status: Current everyday Tobacco user Tobacco use type: Cigarette Cigarette Packs Per Day: 1 Cigarettes Per Day: 20.0 Years Smoked: 30 Smoked in Last 30 Days: Yes e-Cigarette/Vaping Use: Never Used Second Hand Smoke Exposure: Yes Substance Use Type: Heroin and Opiates Advance Directives: Yes Advance Directives on File: Yes Advance Directives Date on File: 10/03/23 Recently lost weight without trying: Unsure Nutrition Risks: Dental problems and Poor intake 0-25% >4 days Patient : No Poor oral hygiene: Yes service: No Meds Allergies Allergy/AdvReac Type Severity Reaction Status Date / Time No Known Allergies Allergy Verified 06/26/25 16:23 Active Medications: Current Medications Enoxaparin Sodium (Enoxaparin Sodium 40 Mg/0.4 Ml Syringe) 40 mg SUBCUT Q24H ANA Norepinephrine Bitartrate (Levophed) 8 mg in 250 mls @ 0 mls/hr IVCONT .Q0M ANA; Protocol Last Titration: 06/26/25 22:00 Dose: 0.11 mcg/kg/min, 11.13 mls/hr Vancomycin HCl 1,250 mg/ (Sodium Chloride) 250 mls @ 166.667 mls/hr IV ONCE ONE Stop: 06/26/25 23:59 Albumin Human (Kedbumin 25 %) 100 mls @ 133.333 mls/hr IV Q1H ANA Stop: 06/27/25 00:44 Pharmacy Consult (Consult Rx Vancomycin Dosing) 1 each MISCELLANE DAILY PRN PRN Reason: Consult order Home Medications ?Medication ?Instructions ?Recorded ?Confirmed ?Last Taken ?Type methadone 10 mg/mL oral 140 mg PO DAILY 11/25/24 06/16/25 06/15/25 10:34 History concentrate (Methadone Intensol) Physical Exam Vital Signs: Vital Signs: Last Vital Signs Temp 98.4 F 06/26/25 19:39 Pulse 61 06/26/25 22:00 Resp 20 06/26/25 19:39 BP 94/59 L 06/26/25 22:09 Pulse Ox 100 06/26/25 21:26 O2 Del Method Nasal Cannula 06/26/25 21:26 O2 Flow Rate 2 06/26/25 21:26 BMI result Body Mass Index 23.2 Initial sepsis exam done at 23:00 General:? Alert oriented x3 no acute distress. No accessory muscle usage.? Following all commands. Skin:? Multiple track castaneda throughout the bilateral upper and lower extremities.? Left upper extremities edematous but according to her is better than before. ?There is a slight erythema around the antecubital area. No shortness to touch, no tenderness. HEENT:? Head is normocephalic, atraumatic, pupils equal. Buccal mucosa is dry Neck is supple without lymphadenopathy. Cardiac:? Clear S1-S2, no murmurs rubs or gallops. Pulmonary:? Diminished lung sounds bilaterally fine expiratory wheezing bilaterally .? No crackles, rales or rhonchi. Abdomen:? Protuberant, positive bowel sounds in all 4 quadrants.? Soft, nontender, no rebound or guarding.? Musculoskeletal:? There is no palpable tenderness over the spinous processes of the cervical, thoracic or lumbar spine on palpation. ?Moving all 4 extremities upon request a major joints, there is no crepitus or tenderness.? The strength is 5/5 bilaterally and throughout all 4 extremities.? There is no leg edema , no calf tenderness , no leg asymmetry.? Gait not assessed at this point. Neurologic:? As above.? No focal deficits noted. Vascular:? 2+ pulses upper and lower extremities distally.? Less than 2nd capillary refill of fingers and toes bilaterally upper and lower extremities Results Labs 06/26/25 16:52 06/27/25 00:26 Labs: Laboratory Results - last 24 hr 06/26/25 06/26/25 16:52 20:00 MCV 89.8 MCH 28.2 MCHC 31.4 RDW 14.6 Plt Count 484 H D MPV 8.6 L Immature Gran % (Auto) 1.1 H Neut % (Auto) 96.0 H Lymph % (Auto) 2.5 L [place] % (Auto) 0.2 L Eos % (Auto) 0.0 Baso % (Auto) 0.2 Lymph # (Auto) 0.4 L [place] # (Auto) 0.0 L Eos # (Auto) 0.0 Baso # (Auto) 0.0 Abs Immat Gran (auto) 0.16 H Absolute Neuts (auto) 14.3 H Absolute Nucleated RBC 0.000 Nucleated RBC % (auto) 0.0 Smear Tech's Comments VERIFIED ESR 109 H Anion Gap 13 Estim Creat Clear Calc 45.7 Estimated GFR 52 Random Glucose 64 Lactic Acid 3.4 H* Lactic Acid F/U @ 2Hr 1.5 Calcium 8.2 L Total Bilirubin 0.5 AST 57 H ALT 22 Alkaline Phosphatase 134 H C-Reactive Protein 8.55 H Total Protein 8.3 H Albumin 3.0 L Assessment and Plan (1) Septic shock: Status: Acute Plan ASSESSMENT : 1. Acute septic shock likely from #1, rule out intra-abdominal process 2. Chronic thoracic spine diskitis with paraspinal phlegmon along T6 and T8 3. Metabolic and lactic acidosis due to the above 4. Chronic IV drug abuse 5. Medical noncompliance 6. Hypoalbuminemia 7. Chronic stable normocytic anemia 8. Chronic stable wedge compression fractures of T12 vertebral body 9. Chronic untreated hepatitis-C and transaminitis PLAN OF CARE: The patient will be admitted to the ICU, I's and O's, vital signs per protocol, she has received 4 L of IV fluids without much improvement of her blood pressure, albumin infusion was started and she was also started on Levophed which will be continued.? She was treated with cefepime we will continue with this and add vancomycin.? We will further assess other sources of possible infection including intra-abdominal and urinary tract for which a CT abdomen and pelvis and a urinalysis has been requested.? Repeat laboratories now in the morning? If the paraspinal infection continues spot of antibiotic, the patient may need transfer to a primary facility for neurosurgical evaluation and possible evacuation of the phlegmon and debridement. The patient is methadone dependent, this dose is confirmed based on last discharge summary and dose was decreased to 100 mg daily (50 b.i.d.) due to bradycardia despite split dosing. MRI had been discouraged in the past due to the patient's spinal hardware which would cause much beam artifact impeding an accurate diagnosis. GI PROPHYLAXIS:? IV PPI DVT PROPHYLAXIS:? Lovenox subQ Follow-up focused sepsis exam at 01:00 06/27/2025 General:? Alert oriented x3 no acute distress. No accessory muscle usage.? Following all commands. Skin: ?As above, no changes Cardiac:? Clear S1-S2, no murmurs rubs or gallops. Pulmonary:? Diminished lung sounds bilaterally fine expiratory wheezing bilaterally .? No crackles, rales or rhonchi.. Neurologic:? As above.? No focal deficits noted. Vascular:? 2+ pulses upper and lower extremities distally.? Less than 2nd capillary refill of fingers and toes bilaterally upper and lower extremities CT of the abdomen and pelvis shows: 1.Low-attenuation collection within the left psoas muscle measuring 5.2 x 5.0 x 12.4 cm which could be abscess or hematoma or mass. 2. Hepatosplenomegaly. Continue with the above-mentioned management.? The patient has improved requiring less vasopressors. Continue gentle IV fluids. The patient may need Interventional Radiology for drainage of the above mentioned left psoas collection. It is likely to represent an abscess 4 there is no evidence of trauma, ecchymosis or anything that would suggest this is a hematoma. ? This patient counter and care had a high probability of a clinically significant, sudden, or life threatening deterioration of this patient's condition which required my full and direct attention, intervention and personal management. Critical care time used for critical evaluation of this patient, diagnosis, treatment and coordination of care, review her records and documentation TOTAL CRITICAL CARE TIME 120?MIN . discussion and coordination with consultants, completely separate from any procedures performed. Patient's care was discussed in detail with Dr. Alexandra who is aware of all the above as well as the plan of care for this patient. Total time managing care of this patient today: 90 minutes.
[2025-06-26 23:11] LABS: Appearance Urine Clear; Glucose Urine UA 100 mg/dL (Negative); PH 5.5 (5.0-9.0); Specific Gravity - Urine >= 1.030 (1.005-1.025); UMIC TRIGGER UA YES
--- NOTE | 2025-06-26 23:16 | MHC.EDTECH ---
Attempted to draw pt twice, unable to obtain. A second tech tried also twice with no luck. RN aware.
[2025-06-26 23:47] LABS: Cannabinoid Screen Urine POSITIVE (Not Detect)
[2025-06-27] VITALS (22 sets, daily range): BP systolic 92–132; BP diastolic 57–92; PULSE 51–76; RESP 13–26; TEMP 35.9–37.1; O2SAT 94–100; BMI 24.5
[2025-06-27] MEDS: Albumin Human 25 % 100 ML 133.33 ML IV (00:09)
[2025-06-27 00:47] LABS: Hematocrit 22.6 % (37.0-47.0); Hemoglobin 7.4 g/dl (12.0-16.0); Mean Corpuscular HGB Conc 32.7 g/dl (31.0-35.0); Mean Corpuscular Hemoglobin 29.1 pg (27.0-33.0); Mean Corpuscular Volume 89.0 fL (80.0-98.0); NRBC Abs Auto 0.000 X10*3/uL (0.0-0.012); NRBC Pct Auto 0.0 /100WBC (0.0-0.2); Platelet Count 366 X10*3/uL (160-400); Red Blood Count 2.54 X10*6/uL (4.20-5.50)
[2025-06-27 00:56] LABS: Alanine Aminotransferase 13 U/L (0-31); Albumin Level 3.6 g/dL (3.5-5.0); Alkaline Phosphatase 74 U/L (39-117); Anion Gap 12 (12-20); Aspartate Amino Transferase 42 U/L (5-31); Blood Urea Nitrogen 22 mg/dL (9-16); Calcium 6.4 mg/dL (8.4-10.2); Carbon Dioxide 19 mmol/L (22-29); Chloride 111 mmol/L (96-108); Creatinine Clr Calc Pharmacy 58.5; Estimated Glomerular Filt Rate > 60; Potassium 3.4 mmol/L (3.3-5.1); Sodium 139 mmol/L (135-145); Total Protein 6.8 g/dL (6.5-8.0)
[2025-06-27] MEDS: Lactated Ringers 1,000 ML 100 ML IVCONT (01:07)
[2025-06-27 01:10] LABS: Band Neutrophils Percent 22 % (3-5); Lymphocytes Absolute Manual 0.4 X10*3/uL (1.2-4.9); Lymphocytes Percent Manual 1 % (20-40); Metamyelocytes Absolute 0.4 X10*3/uL; Metamyelocytes Percent 1 %; Monocytes Absolute Manual 0.4 X10*3/uL (0.1-1.2); Monocytes Percent Manual 1 % (2-11); Neutrophils Absolute Manual 34.2 X10*3/uL (2.0-8.3); Neutrophils Percent Manual 75 % (45-73)
[2025-06-27 01:11] LABS: Macrocytosis 1+ (5-14) /OIF; Microcytosis 1+ (5-14) /OIF; RBC Morphology NOTED
[2025-06-27 01:12] LABS: Spherocytes 2+ (3-5) /OIF; Stomatocytes 1+ (5-14) /OIF
[2025-06-27 01:13] LABS: Hypochromasia 1+ (5-14) /OIF; Toxic Granulation PRESENT; Toxic Vacuolation PRESENT
[2025-06-27 01:14] LABS: White Blood Count 35.3 X10*3/uL (4.8-10.8)
[2025-06-27] MEDS: Calcium Gluconate/NaCl,Iso-Osm 2 GM/100 ML PLAST..BAG IV (03:44)
[2025-06-27 05:05] LABS: VBG HCO3 25 mmol/L (22-26); VBG O2 % Saturation 87.0 %; Venous Blood Gas Refer to POC result
[2025-06-27 05:09] LABS: Hematocrit 22.1 % (37.0-47.0); Hemoglobin 7.1 g/dl (12.0-16.0); Mean Corpuscular HGB Conc 32.1 g/dl (31.0-35.0); Mean Corpuscular Hemoglobin 28.7 pg (27.0-33.0); Mean Corpuscular Volume 89.5 fL (80.0-98.0); NRBC Abs Auto 0.000 X10*3/uL (0.0-0.012); NRBC Pct Auto 0.0 /100WBC (0.0-0.2); Platelet Count 343 X10*3/uL (160-400); Red Blood Count 2.47 X10*6/uL (4.20-5.50); White Blood Count 28.3 X10*3/uL (4.8-10.8)
--- NOTE | 2025-06-27 05:26 | PC.NURSE ---
Patient arrived to ICU from ED via stretcher at approx 0000. Patient alert and oriented x4, able to make needs known. SB/SR on tele, HR 50s-60s. Levophed gtt running per JAN for MAP >65. Rhonchi auscultated to upper lobes, with intermittent wet junky cough. Patient saturating well on 2L NC. Abdomen soft and round, bowel sounds x4. Patient able to void clear yellow urine via bedpan. Skin warm dry and intact, diffuse bruising to extremities?present on admission. Patient able to reposition self in bed, bed locked in lowest position, call ferrell within reach.?
[2025-06-27 05:28] LABS: Alanine Aminotransferase 18 U/L (0-31); Albumin Level 3.4 g/dL (3.5-5.0); Alkaline Phosphatase 93 U/L (39-117); Anion Gap 12 (12-20); Aspartate Amino Transferase 52 U/L (5-31); Blood Urea Nitrogen 22 mg/dL (9-16); Calcium 8.0 mg/dL (8.4-10.2); Carbon Dioxide 21 mmol/L (22-29); Chloride 110 mmol/L (96-108); Creatinine Clr Calc Pharmacy 66.6; Estimated Glomerular Filt Rate > 60; Magnesium 2.0 mg/dL (1.6-2.6); Potassium 3.8 mmol/L (3.3-5.1); Sodium 139 mmol/L (135-145); Total Protein 6.8 g/dL (6.5-8.0)
[2025-06-27 05:32] LABS: Band Neutrophils Percent 12 % (3-5); Lymphocytes Absolute Manual 1.4 X10*3/uL (1.2-4.9); Lymphocytes Percent Manual 5 % (20-40); Monocytes Absolute Manual 0.3 X10*3/uL (0.1-1.2); Monocytes Percent Manual 1 % (2-11); Neutrophils Absolute Manual 26.6 X10*3/uL (2.0-8.3); Neutrophils Percent Manual 82 % (45-73)
[2025-06-27 05:33] LABS: Macrocytosis 1+ (5-14) /OIF; Microcytosis 2+ (15-30) /OIF; RBC Morphology NOTED
[2025-06-27 05:34] LABS: Spherocytes 2+ (3-5) /OIF; Tear Drop Cells 1+ (0-2) /OIF
[2025-06-27 05:35] LABS: Toxic Granulation PRESENT; Toxic Vacuolation PRESENT
--- NOTE | 2025-06-27 06:59 | PHA.PROG ---
Admission Date/Time: June 26, 2025 22:14 Indication: SEPSIS Weight in k kg Adjusted body weight in Kg: [place] body weight in Kg: Obesity Dosing Indication % IBW: Serum Creatinine - Last 168 Hours 06/26/25 06/27/25 06/27/25 16:52 00:26 04:55 Creatinine 1.15 0.90 0.87 Estimated CrCl and GFR - Last 168 Hours 06/26/25 06/27/25 06/27/25 16:52 00:26 04:55 Estim Creat Clear Calc 45.7 58.5 66.6 Estimated GFR 52 > 60 > 60 Vancomycin Loading Dose: 1250 Current Vancomycin Dosing Regimen:750 Q12 Vancomycin Monitoring using AUC goal of 400 - 600 range with trough as surrogate marker:501 (15.7) Date and Time for next Vancomycin Level to be drawn: 06/28 @1999 Pharmacist Comments on Vancomycin Plan: Vancomycin dosing will take advantage of BULXRX as a clinical decision support tool that uses Bayesian modeling to calculate individual patient's pharmacokinetic parameters and forecast the patient's drug concentration time course with the target goal AUC 24 range of 400 - 600 mg/L/hr.
--- NOTE | 2025-06-27 08:37 | HE.PHANOTE ---
METHADONE Dose: 100mg, last dosed 06/26/2025 per HARISH Loomis at [facility].
[2025-06-27] MEDS: methADONE HCl 20 MG/2 ML ORAL.CONC 100 MG PO (08:45)
--- NOTE | 2025-06-27 10:22 | P.PNCC_ITS ---
Subjective Subjective Date of Service: 06/27/25 Interval History: Doing better, no new complaints Off Levophed support this morning Critical Care Time (minutes): 35 Physical Exam 2 Vital Signs: Vital Signs: Last Vital Signs Temp 97.0 F 06/27/25 08:00 Pulse 52 06/27/25 09:53 Resp 26 H 06/27/25 09:00 BP 132/92 H 06/27/25 09:53 Pulse Ox 98 06/27/25 09:00 O2 Del Method Nasal Cannula 06/27/25 09:00 O2 Flow Rate 1 06/27/25 09:00 BMI result Body Mass Index 24.5 General: Middle-aged lady, comfortable not in any distress sitting in the bed Nutritional Appearance: well nourished and overweight Eyes: appearance normal, both eyes and all related structures; Alignment and Position: alignment normal and position normal Neck: No lymphadenopathy, no thyromegaly Resp: bilateral air entry equal, occasional added sounds present Cardio: Regular rate, regular rhythm; Heart sounds: S1 normal heart sound present and S2 normal heart sound present GI: soft, nontender, no guarding, no hepatosplenomegaly : bladder normal to inspection, bladder normal to palpation, no renal angle tenderness Skin: no rashes or lesions noted and elasticity normal Neuro: oriented to person, oriented to place, oriented to time and moves all extremities Objective Data Labs 06/27/25 04:55 06/27/25 04:55 Labs: Laboratory Results - last 24 hr 06/26/25 06/26/25 06/26/25 16:52 20:00 22:50 WBC 14.8 H RBC 3.23 L Hgb 9.1 L Hct 29.0 L MCV 89.8 MCH 28.2 MCHC 31.4 RDW 14.6 Plt Count 484 H D MPV 8.6 L Immature Gran % (Auto) 1.1 H Neut % (Auto) 96.0 H Lymph % (Auto) 2.5 L Alexander % (Auto) 0.2 L Eos % (Auto) 0.0 Baso % (Auto) 0.2 Lymph # (Auto) 0.4 L Alexander # (Auto) 0.0 L Eos # (Auto) 0.0 Baso # (Auto) 0.0 Abs Immat Gran (auto) 0.16 H Absolute Neuts (auto) 14.3 H Absolute Nucleated RBC 0.000 Nucleated RBC % (auto) 0.0 Neutrophils % (Manual) Band Neutrophils % Lymphocytes % (Manual) Monocytes % (Manual) Metamyelocytes % Abs Neuts (Manual) Lymphocytes # (Manual) Monocytes # (Manual) Metamyelocytes # Toxic Granulation Toxic Vacuolation Platelet Estimate Plt Morphology Comment RBC Morphology Hypochromasia Microcytosis Macrocytosis Spherocytes Tear Drop Cells Stomatocytes Smear Tech's Comments VERIFIED ESR 109 H VBG pH VBG pCO2 VBG pO2 VBG HCO3 VBG O2 Saturation VBG Base Excess Sodium 135 Potassium 3.9 Chloride 100 Carbon Dioxide 26 Anion Gap 13 BUN 27 H Creatinine 1.15 Estim Creat Clear Calc 45.7 Estimated GFR 52 Random Glucose 64 Lactic Acid 3.4 H* Lactic Acid F/U @ 2Hr 1.5 Calcium 8.2 L Phosphorus Magnesium Total Bilirubin 0.5 AST 57 H ALT 22 Alkaline Phosphatase 134 H C-Reactive Protein 8.55 H Total Protein 8.3 H Albumin 3.0 L Urine Color Yellow Urine Appearance Clear Urine pH 5.5 Ur Specific [place] >= 1.030 H Urine Protein 30 (1+) H Urine Glucose (UA) 100 H Urine Ketones Negative Urine Blood Negative Urine Nitrite Negative Ur Leukocyte Esterase Negative Urine RBC 0-2 Urine WBC 0-5 Ur Squamous Epith Cells 11-20 Urine Bacteria 2+ Hyaline Casts 6-10 Urine Opiates Screen POSITIVE H Ur Buprenorphine Scrn Not Detected Ur Oxycodone Screen Not Detected Urine Methadone Screen Positive H Urine Fentanyl Screen POSITIVE H Ur Barbiturates Screen Not Detected Ur Phencyclidine Scrn Not Detected Ur Amphetamines Screen Not Detected U Benzodiazepines Scrn Not Detected Urine Cocaine Screen POSITIVE H U Marijuana (THC) Screen POSITIVE H 06/27/25 06/27/25 06/27/25 00:26 04:55 05:01 WBC 35.3 H* 28.3 H RBC 2.54 L D 2.47 L Hgb 7.4 L 7.1 L Hct 22.6 L D 22.1 L MCV 89.0 89.5 MCH 29.1 28.7 MCHC 32.7 32.1 RDW 14.9 14.9 Plt Count 366 343 MPV 8.8 L 8.7 L Immature Gran % (Auto) Cancelled Cancelled Neut % (Auto) Cancelled Cancelled Lymph % (Auto) Cancelled Cancelled Alexander % (Auto) Cancelled Cancelled Eos % (Auto) Cancelled Cancelled Baso % (Auto) Cancelled Cancelled Lymph # (Auto) Cancelled Cancelled Alexander # (Auto) Cancelled Cancelled Eos # (Auto) Cancelled Cancelled Baso # (Auto) Cancelled Cancelled Abs Immat Gran (auto) Cancelled Cancelled Absolute Neuts (auto) Cancelled Cancelled Absolute Nucleated RBC 0.000 0.000 Nucleated RBC % (auto) 0.0 0.0 Neutrophils % (Manual) 75 H 82 H Band Neutrophils % 22 H 12 H Lymphocytes % (Manual) 1 L 5 L Monocytes % (Manual) 1 L 1 L Metamyelocytes % 1 Abs Neuts (Manual) 34.2 H 26.6 H Lymphocytes # (Manual) 0.4 L 1.4 Monocytes # (Manual) 0.4 0.3 Metamyelocytes # 0.4 Toxic Granulation PRESENT PRESENT Toxic Vacuolation PRESENT PRESENT Platelet Estimate NORMAL NORMAL Plt Morphology Comment NORMAL NORMAL RBC Morphology NOTED NOTED Hypochromasia 1+ (5-14) Microcytosis 1+ (5-14) 2+ (15-30) Macrocytosis 1+ (5-14) 1+ (5-14) Spherocytes 2+ (3-5) 2+ (3-5) Tear Drop Cells 1+ (0-2) Stomatocytes 1+ (5-14) Smear Tech's Comments ESR VBG pH 7.45 H VBG pCO2 36 VBG pO2 54 VBG HCO3 25 VBG O2 Saturation 87.0 VBG Base Excess 1.8 Sodium 139 139 Potassium 3.4 3.8 Chloride 111 H 110 H Carbon Dioxide 19 L 21 L Anion Gap 12 12 BUN 22 H 22 H Creatinine 0.90 0.87 Estim Creat Clear Calc 58.5 66.6 Estimated GFR > 60 > 60 Random Glucose 98 88 Lactic Acid Lactic Acid F/U @ 2Hr Calcium 6.4 L D 8.0 L D Phosphorus 3.1 Magnesium 2.0 Total Bilirubin 0.9 0.5 AST 42 H 52 H ALT 13 18 Alkaline Phosphatase 74 93 C-Reactive Protein Total Protein 6.8 6.8 Albumin 3.6 3.4 L Urine Color Urine Appearance Urine pH Ur Specific [place] Urine Protein Urine Glucose (UA) Urine Ketones Urine Blood Urine Nitrite Ur Leukocyte Esterase Urine RBC Urine WBC Ur Squamous Epith Cells Urine Bacteria Hyaline Casts Urine Opiates Screen Ur Buprenorphine Scrn Ur Oxycodone Screen Urine Methadone Screen Urine Fentanyl Screen Ur Barbiturates Screen Ur Phencyclidine Scrn Ur Amphetamines Screen U Benzodiazepines Scrn Urine Cocaine Screen U Marijuana (THC) Screen Microbiology Microbiology Results: Microbiology 06/26/25 16:52 Blood - Venous Blood Culture - Preliminary Prelim: GPC Gram Stain only 06/26/25 16:52 Blood - Venous Blood Culture - Preliminary Prelim: GPC Gram Stain only Progress Note: A&P Assessment and plan (1) Polysubstance abuse: Status: Acute (2) Substance abuse: Status: Acute (3) Opioid use disorder: Status: Acute (4) Bacteremia: Status: Acute (5) Cellulitis of extremity: Status: Acute (6) Septic shock: Status: Acute Plan Septic shock: Secondary to MSSA bacteremia from osteomyelitis and abscess of T6 vertebra and surrounding area along with diskitis now leading to a psoas abscess of size 5x 5x 12 cm as seen on the CT. Blood cultures growing staph, PCR negative for MRSA. IR consult has been placed for drainage of the psoas abscess We will discontinue vancomycin and continue with cefazolin TTE negative for endocarditis recently Leukocytosis improving Off Levophed support this morning, we will transfer her to floor Acute encephalopathy: Secondary to toxic metabolic encephalopathy Resolved, her mentation is normal this morning UDS positive for marijuana, cocaine, fentanyl and opiates Home dose of methadone 100 mg daily restarted Chronic anemia: Slow drop in hemoglobin from 9-7.1 this morning possibly related to the IV fluid she received We will repeat a CBC and a stool for occult blood Prophylaxis: We will hold off anticoagulation for possible procedure tomorrow SCD Quality Stroke Does the patient have a stroke diagnosis?: No VTE Prior VTE?: No VTE Risk Level:: Medical - moderate - high VTE Device Contraindication: N/A - Device Ordered VTE Drug Contraindication: N/A - Med Ordered
[2025-06-27 10:46] LABS: Hematocrit 23.0 % (37.0-47.0); Hemoglobin 7.3 g/dl (12.0-16.0)
--- NOTE | 2025-06-27 11:14 | PHA.MEDREC ---
Pharmacy Consult ? Medication Reconciliation Pharmacy has completed the medication reconciliation, nursing verified patient is not on any other medications besides methadone.
--- NOTE | 2025-06-27 14:40 | MHC.CM.PN ---
EMR REVIEWED, PT ACUTE SEPTIC SHOCK INITALLY ADMITTED TO ICU FOR PRESSORS, NOW ON IMC, CM MET W/PT WHO REPORTS SHE IS LIVING W/HER IN A TENT VERY CLOSE TO ADDRESS ON FILE, PT REPORTS SHE WOULD LIKE ASSISTANCE W/TRANSPORT TO ADDRESS ON FILE. PT ALSO AGREEABLE TO STR IN EEK FOR PENITENTIARY IV ABX IF NEEDED. PT IS FULLY INDEP, DENIES USE OF DME/SERVICES, PT DOES RECEIVE SA TX AND MMTP AT [facility] IN [place], PT DENIES HAVING A HCP AND REPORTS SHE WILL GO TO [facility] FOR PRIMARY CARE. HCP ON FILE VERIFIED.
[2025-06-28] VITALS (12 sets, daily range): BP systolic 100–132; BP diastolic 55–82; PULSE 52–72; RESP 12–18; TEMP 36.2–37.2; O2SAT 63–100; BMI 25.3
[2025-06-28 05:13] LABS: MANUAL DIFF FLAG NO
[2025-06-28 05:22] LABS: Hematocrit 24.7 % (37.0-47.0); Hemoglobin 7.9 g/dl (12.0-16.0); Imm Gran Abs Auto 0.14 X10*3/uL (0.00-0.03); Imm Gran Pct Auto 1.0 % (0.0-0.4); Lymphocytes Absolute Auto 1.9 X10*3/uL (1.2-4.9); Mean Corpuscular HGB Conc 32.0 g/dl (31.0-35.0); Mean Corpuscular Hemoglobin 28.7 pg (27.0-33.0); Mean Corpuscular Volume 89.8 fL (80.0-98.0); NRBC Abs Auto 0.000 X10*3/uL (0.0-0.012); NRBC Pct Auto 0.0 /100WBC (0.0-0.2); Platelet Count 357 X10*3/uL (160-400); Red Blood Count 2.75 X10*6/uL (4.20-5.50); White Blood Count 13.5 X10*3/uL (4.8-10.8)
[2025-06-28 05:28] LABS: Alanine Aminotransferase 14 U/L (0-31); Albumin Level 3.0 g/dL (3.5-5.0); Alkaline Phosphatase 90 U/L (39-117); Anion Gap 10 (12-20); Aspartate Amino Transferase 44 U/L (5-31); Blood Urea Nitrogen 21 mg/dL (9-16); Calcium 8.3 mg/dL (8.4-10.2); Carbon Dioxide 25 mmol/L (22-29); Chloride 111 mmol/L (96-108); Creatinine Clr Calc Pharmacy 81.6; Estimated Glomerular Filt Rate > 60; Magnesium 1.8 mg/dL (1.6-2.6); Potassium 4.2 mmol/L (3.3-5.1); Sodium 142 mmol/L (135-145); Total Protein 6.8 g/dL (6.5-8.0)
[2025-06-28 06:11] LABS: OBS Int Ctl Valid YES; OBS1 NEGATIVE (NEGATIVE)
[2025-06-28] MEDS: methADONE HCl 20 MG/2 ML ORAL.CONC 100 MG PO (08:13)
--- NOTE | 2025-06-28 09:27 | P.PNIM_ITS ---
Subjective Subjective Date of Service: 06/28/25 Interval History: Seen and examined, recently left AMA for IVD related MSSA bacteremia, was admitted through ICU for septic shock and MSSA bacteremia, no new issues right now Physical Exam 2 Exam: Exam: CONST: Alert and oriented, in NAD. Well nourished HEENT: Normocephalic, atraumatic, MMM, Eyes clear, Neck supple RESP: Lungs clear, RRR even and regular HEART:,RRR, S1, S2. no edema. Heart rate 52 apically GI:Abdomen Soft NT, ND. + BS times four :Deferred SKIN: Warm dry and intact, no visible lesions or rashes NEURO:CN II-XII Intact bilaterally, Sensation intact. Speech clear PSYCH: Normal affect Vital Signs: Vital Signs: Last Vital Signs Temp 97.7 F 06/28/25 06:57 Pulse 52 06/28/25 06:57 Resp 18 06/28/25 06:57 BP 107/70 06/28/25 06:57 Pulse Ox 98 06/28/25 06:57 O2 Del Method Room Air 06/28/25 06:57 O2 Flow Rate 1 06/27/25 12:00 BMI result Body Mass Index 25.3 General: Middle-aged lady, comfortable not in any distress sitting in the bed Nutritional Appearance: well nourished and overweight Eyes: appearance normal, both eyes and all related structures; Alignment and Position: alignment normal and position normal Neck: No lymphadenopathy, no thyromegaly Resp: bilateral air entry equal, occasional added sounds present Cardio: Regular rate, regular rhythm; Heart sounds: S1 normal heart sound present and S2 normal heart sound present GI: soft, nontender, no guarding, no hepatosplenomegaly : bladder normal to inspection, bladder normal to palpation, no renal angle tenderness Skin: no rashes or lesions noted and elasticity normal Neuro: oriented to person, oriented to place, oriented to time and moves all extremities Objective Data Active Medications Enoxaparin Sodium (Enoxaparin Sodium 40 Mg/0.4 Ml Syringe) 40 mg SUBCUT Q24H [facility] Last Admin: 06/27/25 21:46 Dose: 40 mg Documented By: LOWELL Cefazolin Sodium/Dextrose (Ancef) 2 gm in 50 mls @ 100 mls/hr IV Q8H [facility] Last Infusion: 06/28/25 04:39 Dose: Infused Documented By: LOWELL Methadone HCl (Methadone Hcl 20 Mg/2 Ml Oral.Conc) 100 mg PO DAILY@0800 ANA Last Admin: 06/28/25 08:13 Dose: 100 mg Documented By: NOLA Co-signed By: LUCY Labs 06/28/25 05:08 06/28/25 05:08 Labs: Laboratory Results - last 24 hr 06/28/25 06/28/25 05:08 06:00 MCV 89.8 MCH 28.7 MCHC 32.0 RDW 15.4 Plt Count 357 MPV 8.9 L Immature Gran % (Auto) 1.0 H Neut % (Auto) 81.0 H Lymph % (Auto) 14.4 L Summers % (Auto) 3.4 Eos % (Auto) 0.1 Baso % (Auto) 0.1 Lymph # (Auto) 1.9 Summers # (Auto) 0.5 Eos # (Auto) 0.0 Baso # (Auto) 0.0 Abs Immat Gran (auto) 0.14 H Absolute Neuts (auto) 10.9 H Absolute Nucleated RBC 0.000 Nucleated RBC % (auto) 0.0 Anion Gap 10 L Estim Creat Clear Calc 81.6 Estimated GFR > 60 Random Glucose 106 Calcium 8.3 L Phosphorus 1.5 L Magnesium 1.8 Total Bilirubin 0.1 AST 44 H ALT 14 Alkaline Phosphatase 90 Total Protein 6.8 Albumin 3.0 L Stool Occult Blood NEGATIVE Microbiology Microbiology Results: Microbiology 06/26/25 16:52 Blood Culture - Preliminary Blood - Venous Staphylococcus aureus 06/26/25 16:52 Blood Culture - Preliminary Blood - Venous Staphylococcus aureus Assessment and Plan (1) Cellulitis of extremity: Status: Acute (2) Bradycardia: Status: Acute Plan 44-year-old female with a past medical history of Polysubstance dependence, IV opiates, cocaine, HCV untreated, history of MSSA bacteremia in 2022. Admittedd 06/16 ti 27 for MSSA bacteremia, septic shcok, left AMA and back again with septic shock bacteremia Readmit for MSSA septic shock and bacteremia. Was in ICU again for septic shock and bacteremia persistent soft tissue fullness along the T6 through T8 levels suggestive of paraspinal phlegmo She was to complete 6 weeks of Cefazolin but left AMA Blood cultures from 06/26 Staph Aureus Continue Kefzol repeat Echo ID consult History of Discitis/Osteomyelitis/Abscess in thoracic spine area status post surgery at [facility] CT of thoracic spine --as stated above Polysubstance dependence continue Methadone Sinus bradycardia associated with metadone, stable right now HCV outpatient follow up Transaminitis Likely due to the above Trending down, outpatient follow-up DVT prophylaxis - lovenox CODE STATUS: FULL CODE Quality Stroke Does the patient have a stroke diagnosis?: No VTE Prior VTE?: No VTE Risk Level:: Medical - moderate - high VTE Device Contraindication: N/A - Device Ordered VTE Drug Contraindication: N/A - Med Ordered
--- NOTE | 2025-06-28 09:35 | CA_ITS ---
Transthoracic Echocardiogram Patient (Last, First, Middle): Norma Chiang, Gender: Female Date of : 1980 Age: 44 Procedure Date: 06/28/2025 Procedure Type: Transthoracic Echocardiogram Location: [facility] Height: 152.4 cm Weight: 58.51 kg BSA: 1.55 m2 Heart Rate: 62 bpm BP: 115 / 67 mmHg Environmental Protection Geologist: CORI Referring MD: Sadiq Hauser MD Symptoms: bacteermia, check for endocarditis Study Quality: Adequate ECG Rhythm: Sinus Conclusions: - The left ventricular systolic function is normal. The calculated ejection fraction is 66% by biplane method. - No obvious valvular pathology seen on this study. - Mild pulmonary hypertension is present. 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 Findings Left Ventricle Normal left ventricular cavity size. There is normal left ventricular wall thickness. The left ventricular systolic function is normal. The calculated ejection fraction is 66% by biplane method. There is no evidence of regional wall motion abnormalities. Diastolic function is normal for age. Right Ventricle Normal right ventricular cavity size and systolic function. Atria The left atrium is moderately dilated. The right atrium is normal in size. Aortic Valve There is a normal trileaflet aortic valve. There is no aortic valve stenosis. There is no aortic valve regurgitation. Mitral Valve The mitral valve appears normal. There is mild mitral valve regurgitation. There is no mitral valve stenosis. Pulmonic Valve There is trace pulmonic valve regurgitation. Tricuspid Valve There is mild tricuspid valve regurgitation. Mild pulmonary hypertension is present. Great Vessels The asc aorta and aortic arch are normal in size. Venous The inferior vena cava is mildly dilated and collapses less than 50% with inspiration. Pericardium/Pleural There is no evidence of pericardial effusion. Prior Study Comparison No significant change compared to prior study dated: 06/16/2025. Recommendations, Care & Conclusions No obvious valvular pathology seen on this study. Measurements 2D Linear Measurements IVSd: 0.92 0.6-0.9/0.6-1.0 cm LVIDd: 5.13 3.9-5.3/4.2-5.9 cm LVIDd Index: 3.31 2.4-3.2/2.2-3.1 cm/m2 LVIDs: 3.33 2.0-3.6 cm LVPWd: 0.82 0.7-1.1 cm LA Diam: 4.30 2.7-3.8/3.0-4.0 cm LAIDs Index: 2.77 1.5-2.3 cm/m2 LV Mass: 196.07 67-162/88-224 g LV Mass Index: 126.50 43-95/49-115 g/m2 LVOT Diam: 2.10 3.0+(-)1.3 cm 2D Systolic Function EF 4C: 68.40 >55% EF 2C: 65.00 >55% EF BiP: 66.30 >55% Mitral Valve MV Pk E: 0.92 MV PK A: 0.68 MV Decel Time: 203.00 E/A: 1.40 E'Lateral: 13.30 E'Medial: 10.90 E/E' Med: 8.40 E/E' Lat: 6.90 PHT: 59.00 MVA PHT: 3.73 Decel [place]atte: 4.53 Aortic Valve AoV Pk Vernon: 1.68 AoV Pk Grad: 11.00 REDDY: 3.22 LVOT LVOT Pk Vernon: 1.53 LVOT Mn Vernon: 1.08 LVOT VTI: 0.33 LVOT Pk Grad: 9.00 LVOT Mn Grad: 5.00 LVOT Diam: 2.10 LVOT Area: 3.46 Diastolic Function MV Pk E: 0.92 MV Pk A: 0.68 E/A: 1.40 E'Medial: 10.90 E/E' Med: 8.40 E' Laterial: 13.30 E/E' Lat: 6.90 Right Ventricle TAPSE (mm): 31.30 TVS' Vernon: 21.70 Tricuspid Valve TR Pk Vernon: 2.98 TR Pk Grad: 36.00 RA Press: 15.00 RVSP: 51.00 Great Vessels Aorta Sinus of Valsalva: 3.00 2.0-3.5 cm Ao Asc: 3.00 2.1-3.4 cm Ao Arch: 3.00 Pulmonary Veins Pulm Vein S/D 1.40 Pulmonary Valve PV Pk Vernon: 1.06 Peak PV Grad: 4.00 Updated in Other Vendor System with Status of Final Cristofer Merida MD electronically signed on 06/28/2025 4:01:58 PM with status of Final
--- NOTE | 2025-06-28 16:47 | HO.ADDICT_ITS ---
History of Present Illness Date of Service: 06/28/2025 Chief Complaint: acute septic shock Reason for Consult: CHIP Sources of Information: patient interviewed and chart reviewed HPI Narrative: Patient is a 44 year old female with OUD, medically admitted with MSSA bacteremia. --patient self directed discharge on 06/21. During last admission, methadone dose was adjusted in different ways to address bradycardia --HR at times dropping to mid 30s. Ultimately dose was decreased to 100mg, with plan to increase as tolerated. Full agonist opiates were also ordered PRN, to address and discomfort from dose reduction. Today, dose remains at 100mg. HR has been 60's-70's, however at admission, BP was quite low and required ICU admission overnight for septic shock. Patient is tearful today, frustrated by abscesses. Reporting she has cut down her use of IV drugs significantly (2-3 times per week, compared to daily). She also reports using new supplies each time. She reports feeling sore all over, and tired. No sx of withdrawal noted. She appeared comfortable overall, but anxious. Left arm quite edematous, which she says occurred after falling? Medical Evaluation Reviewed: Yes Review of Systems Constitutional: Reports as per HPI Diagnostics Vital Signs (24Hr): Vital Signs - 24 hr 06/27/25 20:00 06/28/25 00:00 06/28/25 03:30 Temperature 98.7 F 98.7 F 98.0 F Pulse Rate 65 72 58 Respiratory Rate 16 16 16 Blood Pressure 93/57 L 115/64 103/55 L Pulse Oximetry 97 95 97 Oxygen Delivery Method Room Air Room Air Room Air Oxygen Flow Rate 06/28/25 06:57 06/28/25 10:56 06/28/25 12:00 Temperature 97.7 F 97.1 F Pulse Rate 52 55 63 Respiratory Rate 18 16 16 Blood Pressure 107/70 119/59 L 100/68 Pulse Oximetry 98 95 63 L Oxygen Delivery Method Room Air Room Air Nasal Cannula Oxygen Flow Rate 2 06/28/25 12:05 06/28/25 12:10 06/28/25 12:15 Temperature Pulse Rate 60 62 Respiratory Rate 16 16 12 Blood Pressure 124/70 110/64 Pulse Oximetry 100 Oxygen Delivery Method Nasal Cannula Nasal Cannula Oxygen Flow Rate 2 2 06/28/25 12:20 06/28/25 15:10 Temperature 97.9 F Pulse Rate 64 70 Respiratory Rate 14 18 Blood Pressure 115/67 132/80 Pulse Oximetry 100 97 Oxygen Delivery Method Nasal Cannula Room Air Oxygen Flow Rate 2 BMI result Body Mass Index 25.3 Labs 06/28/25 05:08 06/28/25 05:08 Labs: Laboratory Results - last 48 hr 06/26/25 06/26/25 06/26/25 16:52 20:00 22:50 WBC 14.8 H RBC 3.23 L Hgb 9.1 L Hct 29.0 L MCV 89.8 MCH 28.2 MCHC 31.4 RDW 14.6 Plt Count 484 H D MPV 8.6 L Immature Gran % (Auto) 1.1 H Neut % (Auto) 96.0 H Lymph % (Auto) 2.5 L [place] % (Auto) 0.2 L Eos % (Auto) 0.0 Baso % (Auto) 0.2 Lymph # (Auto) 0.4 L [place] # (Auto) 0.0 L Eos # (Auto) 0.0 Baso # (Auto) 0.0 Abs Immat Gran (auto) 0.16 H Absolute Neuts (auto) 14.3 H Absolute Nucleated RBC 0.000 Nucleated RBC % (auto) 0.0 Neutrophils % (Manual) Band Neutrophils % Lymphocytes % (Manual) Monocytes % (Manual) Metamyelocytes % Abs Neuts (Manual) Lymphocytes # (Manual) Monocytes # (Manual) Metamyelocytes # Toxic Granulation Toxic Vacuolation Platelet Estimate Plt Morphology Comment RBC Morphology Hypochromasia Microcytosis Macrocytosis Spherocytes Tear Drop Cells Stomatocytes Smear Tech's Comments VERIFIED ESR 109 H VBG pH VBG pCO2 VBG pO2 VBG HCO3 VBG O2 Saturation VBG Base Excess Sodium 135 Potassium 3.9 Chloride 100 Carbon Dioxide 26 Anion Gap 13 BUN 27 H Creatinine 1.15 Estim Creat Clear Calc 45.7 Estimated GFR 52 Random Glucose 64 Lactic Acid 3.4 H* Lactic Acid F/U @ 2Hr 1.5 Calcium 8.2 L Phosphorus Magnesium Total Bilirubin 0.5 AST 57 H ALT 22 Alkaline Phosphatase 134 H C-Reactive Protein 8.55 H Total Protein 8.3 H Albumin 3.0 L Urine Color Yellow Urine Appearance Clear Urine pH 5.5 Ur Specific [place] >= 1.030 H Urine Protein 30 (1+) H Urine Glucose (UA) 100 H Urine Ketones Negative Urine Blood Negative Urine Nitrite Negative Ur Leukocyte Esterase Negative Urine RBC 0-2 Urine WBC 0-5 Ur Squamous Epith Cells 11-20 Urine Bacteria 2+ Hyaline Casts 6-10 Stool Occult Blood Urine Opiates Screen POSITIVE H Ur Buprenorphine Scrn Not Detected Ur Oxycodone Screen Not Detected Urine Methadone Screen Positive H Urine Fentanyl Screen POSITIVE H Ur Barbiturates Screen Not Detected Ur Phencyclidine Scrn Not Detected Ur Amphetamines Screen Not Detected U Benzodiazepines Scrn Not Detected Urine Cocaine Screen POSITIVE H U Marijuana (THC) Screen POSITIVE H 06/27/25 06/27/25 06/27/25 00:26 04:55 05:01 WBC 35.3 H* 28.3 H RBC 2.54 L D 2.47 L Hgb 7.4 L 7.1 L Hct 22.6 L D 22.1 L MCV 89.0 89.5 MCH 29.1 28.7 MCHC 32.7 32.1 RDW 14.9 14.9 Plt Count 366 343 MPV 8.8 L 8.7 L Immature Gran % (Auto) Cancelled Cancelled Neut % (Auto) Cancelled Cancelled Lymph % (Auto) Cancelled Cancelled [place] % (Auto) Cancelled Cancelled Eos % (Auto) Cancelled Cancelled Baso % (Auto) Cancelled Cancelled Lymph # (Auto) Cancelled Cancelled [place] # (Auto) Cancelled Cancelled Eos # (Auto) Cancelled Cancelled Baso # (Auto) Cancelled Cancelled Abs Immat Gran (auto) Cancelled Cancelled Absolute Neuts (auto) Cancelled Cancelled Absolute Nucleated RBC 0.000 0.000 Nucleated RBC % (auto) 0.0 0.0 Neutrophils % (Manual) 75 H 82 H Band Neutrophils % 22 H 12 H Lymphocytes % (Manual) 1 L 5 L Monocytes % (Manual) 1 L 1 L Metamyelocytes % 1 Abs Neuts (Manual) 34.2 H 26.6 H Lymphocytes # (Manual) 0.4 L 1.4 Monocytes # (Manual) 0.4 0.3 Metamyelocytes # 0.4 Toxic Granulation PRESENT PRESENT Toxic Vacuolation PRESENT PRESENT Platelet Estimate NORMAL NORMAL Plt Morphology Comment NORMAL NORMAL RBC Morphology NOTED NOTED Hypochromasia 1+ (5-14) Microcytosis 1+ (5-14) 2+ (15-30) Macrocytosis 1+ (5-14) 1+ (5-14) Spherocytes 2+ (3-5) 2+ (3-5) Tear Drop Cells 1+ (0-2) Stomatocytes 1+ (5-14) Smear Tech's Comments ESR VBG pH 7.45 H VBG pCO2 36 VBG pO2 54 VBG HCO3 25 VBG O2 Saturation 87.0 VBG Base Excess 1.8 Sodium 139 139 Potassium 3.4 3.8 Chloride 111 H 110 H Carbon Dioxide 19 L 21 L Anion Gap 12 12 BUN 22 H 22 H Creatinine 0.90 0.87 Estim Creat Clear Calc 58.5 66.6 Estimated GFR > 60 > 60 Random Glucose 98 88 Lactic Acid Lactic Acid F/U @ 2Hr Calcium 6.4 L D 8.0 L D Phosphorus 3.1 Magnesium 2.0 Total Bilirubin 0.9 0.5 AST 42 H 52 H ALT 13 18 Alkaline Phosphatase 74 93 C-Reactive Protein Total Protein 6.8 6.8 Albumin 3.6 3.4 L Urine Color Urine Appearance Urine pH Ur Specific [place] Urine Protein Urine Glucose (UA) Urine Ketones Urine Blood Urine Nitrite Ur Leukocyte Esterase Urine RBC Urine WBC Ur Squamous Epith Cells Urine Bacteria Hyaline Casts Stool Occult Blood Urine Opiates Screen Ur Buprenorphine Scrn Ur Oxycodone Screen Urine Methadone Screen Urine Fentanyl Screen Ur Barbiturates Screen Ur Phencyclidine Scrn Ur Amphetamines Screen U Benzodiazepines Scrn Urine Cocaine Screen U Marijuana (THC) Screen 06/27/25 06/28/25 06/28/25 10:31 05:08 06:00 WBC 13.5 H RBC 2.75 L Hgb 7.3 L 7.9 L Hct 23.0 L 24.7 L MCV 89.8 MCH 28.7 MCHC 32.0 RDW 15.4 Plt Count 357 MPV 8.9 L Immature Gran % (Auto) 1.0 H Neut % (Auto) 81.0 H Lymph % (Auto) 14.4 L [place] % (Auto) 3.4 Eos % (Auto) 0.1 Baso % (Auto) 0.1 Lymph # (Auto) 1.9 [place] # (Auto) 0.5 Eos # (Auto) 0.0 Baso # (Auto) 0.0 Abs Immat Gran (auto) 0.14 H Absolute Neuts (auto) 10.9 H Absolute Nucleated RBC 0.000 Nucleated RBC % (auto) 0.0 Neutrophils % (Manual) Band Neutrophils % Lymphocytes % (Manual) Monocytes % (Manual) Metamyelocytes % Abs Neuts (Manual) Lymphocytes # (Manual) Monocytes # (Manual) Metamyelocytes # Toxic Granulation Toxic Vacuolation Platelet Estimate Plt Morphology Comment RBC Morphology Hypochromasia Microcytosis Macrocytosis Spherocytes Tear Drop Cells Stomatocytes Smear Tech's Comments ESR VBG pH VBG pCO2 VBG pO2 VBG HCO3 VBG O2 Saturation VBG Base Excess Sodium 142 Potassium 4.2 Chloride 111 H Carbon Dioxide 25 Anion Gap 10 L BUN 21 H Creatinine 0.71 Estim Creat Clear Calc 81.6 Estimated GFR > 60 Random Glucose 106 Lactic Acid Lactic Acid F/U @ 2Hr Calcium 8.3 L Phosphorus 1.5 L Magnesium 1.8 Total Bilirubin 0.1 AST 44 H ALT 14 Alkaline Phosphatase 90 C-Reactive Protein Total Protein 6.8 Albumin 3.0 L Urine Color Urine Appearance Urine pH Ur Specific [place] Urine Protein Urine Glucose (UA) Urine Ketones Urine Blood Urine Nitrite Ur Leukocyte Esterase Urine RBC Urine WBC Ur Squamous Epith Cells Urine Bacteria Hyaline Casts Stool Occult Blood NEGATIVE Urine Opiates Screen Ur Buprenorphine Scrn Ur Oxycodone Screen Urine Methadone Screen Urine Fentanyl Screen Ur Barbiturates Screen Ur Phencyclidine Scrn Ur Amphetamines Screen U Benzodiazepines Scrn Urine Cocaine Screen U Marijuana (THC) Screen Imaging Radiology Impressions: ITS Impressions Abscess Drainage CT 06/28/25 11:38 IMPRESSION: Successful CT fluoroscopy guided placement of 10 [place] APD catheter left psoas collection. Predominantly drainage was hemorrhagic or seroma initially and mixed density. Approximately 30 mL of collection was removed. Part of this fluid was sent to lab for culture, sensitivity, anaerobic and Gram stain Electronically signed by: Main Rey MD 06/28/2025 04:11 PM EDT Mental Status Exam Mental Status Exam Level of Consciousness: Awake, Appropriate and Alert Patient Behavior: Appropriate and Crying Affect Description: Anxious Speech Pattern: Clear Hallucinations: None Thought Process: Intact Thought Content: positive for Intact Judgement: Good Medications Medications Current Medications Enoxaparin Sodium (Enoxaparin Sodium 40 Mg/0.4 Ml Syringe) 40 mg SUBCUT Q24H [facility] Last Admin: 06/27/25 21:46 Dose: 40 mg Cefazolin Sodium/Dextrose (Ancef) 2 gm in 50 mls @ 100 mls/hr IV Q8H [facility] Last Infusion: 06/28/25 13:19 Dose: Infused Methadone HCl (Methadone Hcl 20 Mg/2 Ml Oral.Conc) 110 mg PO DAILY@0800 [facility] Allergies Allergies Allergy/AdvReac Type Severity Reaction Status Date / Time No Known Allergies Allergy Verified 06/26/25 16:23 Assessment & Plan Assessment & Plan (1) Opioid use disorder: Status: Acute Code(s): F11.90 - Opioid use, unspecified, uncomplicated Assessment and Plan: * methadone increased to 110mg in AM * PRN opiates as needed for pain --oxycodone 10mg Q4 * will follow up in AM * hydroxyzine 50mg q 6 PRN anxiety Total time managing care of this patient today 40____ minutes. PMFSH Past Medical History Medical History Opioid use disorder Bacteremia Polysubstance use disorder Hepatitis C antibody positive in blood Cocaine abuse Heroin abuse PTSD (post-traumatic stress disorder) Depression Anxiety Opiate abuse, continuous Social History Social History Household Members: Other Housing: Homeless Do you presently have visiting nurse or other home services: No Unable to assess alcohol history related to: Unknown Alcohol intake: never Comment: pt refusing bed alarm and staff assistance Patient Tobacco Use Status: Current everyday Tobacco user Tobacco use type: Cigarette Cigarette Packs Per Day: 1 Cigarettes Per Day: 20.0 Years Smoked: 30 Smoked in Last 30 Days: Yes e-Cigarette/Vaping Use: Never Used Second Hand Smoke Exposure: Yes Substance Use Type: Heroin and Opiates Currently Displaying Signs/Symptoms of Drug Intoxication Withdrawal: No Advance Directives: Yes Advance Directives on File: Yes Advance Directives Date on File: 10/03/23 Recently lost weight without trying: Unsure Nutrition Risks: Dental problems and Poor intake 0-25% >4 days Patient : No Poor oral hygiene: Yes service: No
[2025-06-29 03:43] VITALS: BP 104/63; PULSE 58; RESP 16; TEMP 36.9; O2SAT 95
[2025-06-29 06:00] VITALS: BMI 25.6
[2025-06-29 07:00] LABS: Creatinine Clr Calc Pharmacy 98.5; Estimated Glomerular Filt Rate > 60
[2025-06-29 07:09] VITALS: BP 114/68; PULSE 56; RESP 18; TEMP 36.4; O2SAT 94
[2025-06-29] MEDS: methADONE HCl 20 MG/2 ML ORAL.CONC 110 MG PO (07:46)
--- NOTE | 2025-06-29 09:51 | P.PNIM_ITS ---
Subjective Subjective Date of Service: 06/29/25 Interval History: Here with MRSA sepsis and bacteremia concern for psoas abscess that turned out to be an infected hematoma also growing MSSA Physical Exam 2 Vital Signs: Vital Signs: Last Vital Signs Temp 97.6 F 06/29/25 07:09 Pulse 56 06/29/25 07:09 Resp 18 06/29/25 07:09 BP 114/68 06/29/25 07:09 Pulse Ox 94 06/29/25 07:09 O2 Del Method Room Air 06/29/25 07:09 O2 Flow Rate 2 06/28/25 12:20 BMI result Body Mass Index 25.6 Const: Other: General: AO X 3, no acute distress Resp: CTA bilateral CVS: S1,S2,RRR GI: +BS, NT, no distention Skin: No rash Ext: left psoas drain in place with bloody output Neuro: motor grossly intact Psych: appropriate affect Objective Data Active Medications Acetaminophen (Acetaminophen 325 Mg Tablet) 650 mg PO Q4H PRN PRN Reason: Pain, Mild 1-3,fever,headache Last Admin: 06/29/25 05:56 Dose: 650 mg Documented By: ULISES Enoxaparin Sodium (Enoxaparin Sodium 40 Mg/0.4 Ml Syringe) 40 mg SUBCUT Q24H [facility] Last Admin: 06/28/25 20:57 Dose: 40 mg Documented By: ULISES Hydroxyzine HCl (Hydroxyzine Hcl 50 Mg Tablet) 50 mg PO Q6H PRN PRN Reason: Anxiety Last Admin: 06/28/25 20:57 Dose: 50 mg Documented By: ULISES Cefazolin Sodium/Dextrose (Ancef) 2 gm in 50 mls @ 100 mls/hr IV Q8H [facility] Last Infusion: 06/29/25 04:54 Dose: Infused Documented By: ULISES Melatonin (Melatonin 3 Mg Tablet) 6 mg PO BEDTIME PRN PRN Reason: Insomnia Methadone HCl (Methadone Hcl 20 Mg/2 Ml Oral.Conc) 110 mg PO DAILY@0800 [facility] Last Admin: 06/29/25 07:46 Dose: 110 mg Documented By: NOLA Co-signed By: LUCY Labs 06/28/25 05:08 06/29/25 06:24 Labs: Laboratory Results - last 24 hr 06/29/25 06:24 Estim Creat Clear Calc 98.5 Estimated GFR > 60 Microbiology Microbiology Results: Microbiology 06/28/25 12:13 Gram Stain - Final Abscess Intra-abdominal Routine Culture - Preliminary Staphylococcus aureus Anaerobic Culture - Preliminary Culture in progress. 06/26/25 16:52 Blood Culture - Final Blood - Venous Staphylococcus aureus 06/26/25 16:52 Blood Culture - Preliminary Blood - Venous Staphylococcus aureus Assessment and Plan (1) Cellulitis of extremity: Status: Acute (2) Bradycardia: Status: Acute Plan 44-year-old female with a past medical history of Polysubstance dependence, IV opiates, cocaine, HCV untreated, history of MSSA bacteremia in 2022. Admittedd 06/16 ti 27 for MSSA bacteremia, septic shcok, left AMA and back again with septic shock bacteremia Readmit for MSSA septic shock and bacteremia. 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
[2025-06-29 11:09] VITALS: BP 137/85; PULSE 53; RESP 16; TEMP 36.2; O2SAT 95
--- NOTE | 2025-06-29 13:16 | MHC.RECOVRN ---
TW met with pt in 476 to complete recovery/bh assessment. (please see documentation for further information) Pt was pleasant, calm, and cooperative during interaction. She reports the 110mg of methadone received is adequate to manage withdrawal symptoms, which she currently denies experiencing. Pt was provided information on harm reduction, recovery coaching, [facility] for [place] and provided fentanyl test strips. Pt was also provided a notebook, pen, hairbrush and underwear at her request. Pt denies any questions or concerns at this time. TW available for further questions or concerns if needed.
[2025-06-29 15:15] VITALS: BP 127/79; PULSE 57; RESP 18; TEMP 36.5; O2SAT 96
[2025-06-29 19:43] VITALS: BP 132/80; PULSE 58; RESP 16; TEMP 36.4; O2SAT 96
[2025-06-29 23:40] VITALS: BP 132/83; PULSE 56; RESP 16; TEMP 36.3; O2SAT 94
[2025-06-30 04:00] VITALS: BP 111/68; PULSE 54; RESP 16; TEMP 36.7; O2SAT 96
[2025-06-30 06:00] VITALS: BMI 25.2
[2025-06-30 06:55] VITALS: BP 132/74; PULSE 59; RESP 18; TEMP 36.2; O2SAT 97
[2025-06-30 08:01] LABS: Creatinine Clr Calc Pharmacy 104.7; Estimated Glomerular Filt Rate > 60
[2025-06-30] MEDS: methADONE HCl 20 MG/2 ML ORAL.CONC 110 MG PO (08:01)
[2025-06-30 10:59] VITALS: BP 127/81; PULSE 57; RESP 18; TEMP 36.1; O2SAT 94
--- NOTE | 2025-06-30 14:24 | MHC.CM.PN ---
EMR REVIEWED, PT W/BACTEREMIA AND S/P DRAINAGE OF ABSCESS, PER HOSPITALIST SURGICAL/ECHO AND ID PENDING, ANTIC PT WILL NEED CUSTODIAL IV ABX, PT AGREEABLE TO [facility] THAT CAN ACCOMMODATE METHADONE, REF PLACED AND [facility] AND [facility] FOLLOWING, CM WILL CONT TO FOLLOW DC NEEDS.
--- NOTE | 2025-06-30 14:40 | MHC.CM.PN ---
Pt. to be seen by ID, CM to follow for DC needs.
[2025-06-30 15:20] VITALS: BP 140/87; PULSE 54; RESP 20; TEMP 36.4; O2SAT 97
--- NOTE | 2025-06-30 16:10 | MHC.CM.PN ---
CM met with pt. to discuss DCP, she is willing to go to [facility] for STR, pt. signed JEET forms to set up Methadone guest dosing at [facility].
--- NOTE | 2025-06-30 16:57 | P.PNADD_ITS ---
Subjective Subjective Date of Service: 06/30/25 Reason For Visit: acute septic shock Interim History: Patient seen in follow up for OUD and methadone dose titration. Appearing comfortable, watching TV Methadone dose currently 110mg. She reports feeling good on current dose, asking to increase by 5mg. HR has been stable, no documented episodes of bradycardia Overall body aches and pain much improved. She feels SHIRA drain has helped a lot with the discomfort as well. Review of Systems Constitutional: Reports as per HPI and Reports no additional constitutional complaints Mental Status Exam Mental Status Exam Patient Appearance: Well Grooomed Level of Consciousness: Awake and Appropriate Patient Behavior: Appropriate and Talkative Affect Description: Calm Speech Pattern: Clear Hallucinations: None Thought Process: Intact Thought Content: positive for Intact Judgement: Good Diagnostics Vital Signs (24Hr): Vital Signs - 24 hr 06/29/25 19:43 06/29/25 23:40 06/30/25 04:00 Temperature 97.6 F 97.4 F 98.0 F Pulse Rate 58 56 54 Respiratory Rate 16 16 16 Blood Pressure 132/80 132/83 111/68 Pulse Oximetry 96 94 96 Oxygen Delivery Method Room Air Room Air Room Air 06/30/25 06:55 06/30/25 10:59 06/30/25 15:20 Temperature 97.2 F 97.0 F 97.6 F Pulse Rate 59 57 54 Respiratory Rate 18 18 20 Blood Pressure 132/74 127/81 140/87 H Pulse Oximetry 97 94 97 Oxygen Delivery Method Room Air Room Air Room Air BMI result Body Mass Index 25.2 Labs 06/28/25 05:08 06/30/25 07:10 Labs: Laboratory Results - last 48 hr 06/29/25 06/30/25 06:24 07:10 Hold Purple Top SEE NOTE Creatinine 0.60 0.56 Estim Creat Clear Calc 98.5 104.7 Estimated GFR > 60 > 60 Imaging Radiology Impressions: ITS Impressions Abscess Drainage CT 06/28/25 11:38 IMPRESSION: Successful CT fluoroscopy guided placement of 10 [place] APD catheter left psoas collection. Predominantly drainage was hemorrhagic or seroma initially and mixed density. Approximately 30 mL of collection was removed. Part of this fluid was sent to lab for culture, sensitivity, anaerobic and Gram stain Electronically signed by: Main Rey MD 06/28/2025 04:11 PM EDT RP Medications Medications Current Medications Acetaminophen (Acetaminophen 325 Mg Tablet) 650 mg PO Q4H PRN PRN Reason: Pain, Mild 1-3,fever,headache Last Admin: 06/29/25 20:11 Dose: 650 mg Enoxaparin Sodium (Enoxaparin Sodium 40 Mg/0.4 Ml Syringe) 40 mg SUBCUT Q24H [facility] Last Admin: 06/29/25 20:10 Dose: 40 mg Hydroxyzine HCl (Hydroxyzine Hcl 50 Mg Tablet) 50 mg PO Q6H PRN PRN Reason: Anxiety Last Admin: 06/29/25 20:12 Dose: 50 mg Cefazolin Sodium/Dextrose (Ancef) 2 gm in 50 mls @ 100 mls/hr IV Q8H [facility] Last Infusion: 06/30/25 12:51 Dose: Infused Melatonin (Melatonin 3 Mg Tablet) 6 mg PO BEDTIME PRN PRN Reason: Insomnia Last Admin: 06/29/25 20:46 Dose: 6 mg Methadone HCl (Methadone Hcl 20 Mg/2 Ml Oral.Conc) 110 mg PO DAILY@0800 [facility] Last Admin: 06/30/25 08:01 Dose: 110 mg Allergies Allergies Allergy/AdvReac Type Severity Reaction Status Date / Time No Known Allergies Allergy Verified 06/26/25 16:23 Assessment & Plan Assessment & Plan (1) Opioid use disorder: Status: Acute Code(s): F11.90 - Opioid use, unspecified, uncomplicated Assessment and Plan: * methadone increase to 115mg Total time managing care of this patient today _20___ minutes.
--- NOTE | 2025-06-30 18:12 | HO.PM.IMPN ---
Subjective Subjective Date of Service: 06/30/25 Interval History: Patient drowsy but rousable during visit today. Reports generalized pain, but improving overall. Eating and drinking. Endorses homelessness and appreciative of care provided thus far. Review of Systems Review of Systems: Yes all other systems are reviewed and are negative Physical Exam Exam: Exam: General: A&O x3, oriented to time place person and siutaion, comfortable, no pain Cardiac: S1, S2 auscultated with no S3/4, no MRG. Well perfused. Respiratory: Normal breath sounds auscultated throughout all lung zones, without wheezing, rales. Normal rate. GI/ : No abdominal pain on palpation, no masses or distentions. MSK: Normal ambulation without pain at bony prominences or musculature Neurological: Normal neurological examination on overview, without obvious CN II-XII abnormalities. Vital Signs: Vital Signs: Last Vital Signs Temp 97.6 F 06/30/25 15:20 Pulse 54 06/30/25 15:20 Resp 20 06/30/25 15:20 BP 140/87 H 06/30/25 15:20 Pulse Ox 97 06/30/25 15:20 O2 Del Method Room Air 06/30/25 15:20 O2 Flow Rate 2 06/28/25 12:20 BMI result Body Mass Index 25.2 Objective Data Active Medications Acetaminophen (Acetaminophen 325 Mg Tablet) 650 mg PO Q4H PRN PRN Reason: Pain, Mild 1-3,fever,headache Last Admin: 06/29/25 20:11 Dose: 650 mg Documented By: FRENCH Enoxaparin Sodium (Enoxaparin Sodium 40 Mg/0.4 Ml Syringe) 40 mg SUBCUT Q24H [facility] Last Admin: 06/29/25 20:10 Dose: 40 mg Documented By: FRENCH Hydroxyzine HCl (Hydroxyzine Hcl 50 Mg Tablet) 50 mg PO Q6H PRN PRN Reason: Anxiety Last Admin: 06/29/25 20:12 Dose: 50 mg Documented By: FRENCH Cefazolin Sodium/Dextrose (Ancef) 2 gm in 50 mls @ 100 mls/hr IV Q8H [facility] Last Infusion: 06/30/25 12:51 Dose: Infused Documented By: PALMER Melatonin (Melatonin 3 Mg Tablet) 6 mg PO BEDTIME PRN PRN Reason: Insomnia Last Admin: 06/29/25 20:46 Dose: 6 mg Documented By: FRENCH Comments: per patient request Methadone HCl (Methadone Hcl 20 Mg/2 Ml Oral.Conc) 115 mg PO DAILY@0800 [facility] Labs 06/28/25 05:08 06/30/25 07:10 Labs: Laboratory Results - last 24 hr 06/30/25 07:10 Hold Purple Top SEE NOTE Estim Creat Clear Calc 104.7 Estimated GFR > 60 Microbiology Microbiology Results: Microbiology 06/28/25 12:13 Gram Stain - Final Abscess Intra-abdominal Routine Culture - Final Methicillin Res Staph Aureus Anaerobic Culture - Preliminary Culture in progress. Assessment and Plan (1) MSSA bacteremia: Status: Acute Assessment and Plan: Readmit for MSSA septic shock and bacteremia. Was in ICU again for septic shock and bacteremia Persistent soft tissue fullness along the T6 through T8 levels suggestive of paraspinal phlegmon. Left Psoas infected hematoma not abscess, growing MSSA She was to complete 6 weeks of Cefazolin but left AMA prior admission. Blood cultures from 06/26 Staph Aureus PLAN - Continue Kefzol - Repeat Echo - ID consult placed (2) Septic shock: Status: Acute Assessment and Plan: RESOLVED Patient meets sepsis criteria for MSSA bacteremia. Source/ etiology undetermined as of yet; possible infected psoas muscle/ abscess vs. spinal nidus. Blood cultures from 06/26 Staph Aureus PLAN - Continue Kefzol - Repeat Echo - ID consult placed (3) Bacteremia: Status: Acute Assessment and Plan: Patient meets sepsis criteria for MSSA bacteremia. Source/ etiology undetermined as of yet; possible infected psoas muscle/ abscess vs. spinal nidus. Blood cultures from 06/26 Staph Aureus PLAN - Continue Kefzol - Repeat Echo - ID consult placed (4) Discitis thoracic region: Status: Acute Assessment and Plan: History of Discitis/Osteomyelitis/Abscess in thoracic spine area status post surgery at [facility] CT of thoracic spine (5) Polysubstance abuse: Status: Acute Assessment and Plan: Continue Methadone FU with Addiction medicine (6) Bradycardia: Status: Acute Assessment and Plan: Sinus bradycardia associated with metadone Stable (7) Transaminitis: Status: Acute Assessment and Plan: Transaminitis Likely due to the above. Trending down, outpatient follow-up/ follow up with Hepatology regarding HCV infection Total time managing care of this patient today: 35 minutes. Quality Stroke Does the patient have a stroke diagnosis?: No VTE Prior VTE?: No VTE Risk Level:: Medical - moderate - high VTE Device Contraindication: N/A - Device Ordered VTE Drug Contraindication: N/A - Med Ordered
[2025-06-30 19:03] VITALS: BP 142/83; PULSE 56; RESP 20; TEMP 36.4; O2SAT 97
[2025-06-30 23:59] VITALS: BP 149/93; PULSE 51; RESP 18; TEMP 36.2; O2SAT 95
[2025-07-01 03:10] VITALS: BP 132/80; PULSE 50; RESP 18; TEMP 36.2; O2SAT 94
[2025-07-01 05:48] VITALS: BMI 24.8
[2025-07-01 07:04] LABS: Hematocrit 29.4 % (37.0-47.0); Hemoglobin 9.4 g/dl (12.0-16.0); Imm Gran Abs Auto 0.31 X10*3/uL (0.00-0.03); Imm Gran Pct Auto 4.7 % (0.0-0.4); Lymphocytes Absolute Auto 1.6 X10*3/uL (1.2-4.9); MANUAL DIFF FLAG SCAN; Mean Corpuscular HGB Conc 32.0 g/dl (31.0-35.0); Mean Corpuscular Hemoglobin 28.5 pg (27.0-33.0); Mean Corpuscular Volume 89.1 fL (80.0-98.0); NRBC Abs Auto 0.000 X10*3/uL (0.0-0.012); NRBC Pct Auto 0.0 /100WBC (0.0-0.2); PLT CLUMP 1; Red Blood Count 3.30 X10*6/uL (4.20-5.50); SCAN SMEAR FLAG 1
[2025-07-01 07:15] LABS: Alanine Aminotransferase 9 U/L (0-31); Albumin Level 3.3 g/dL (3.5-5.0); Alkaline Phosphatase 81 U/L (39-117); Anion Gap 11 (12-20); Aspartate Amino Transferase 30 U/L (5-31); Blood Urea Nitrogen 14 mg/dL (9-16); Calcium 8.9 mg/dL (8.4-10.2); Carbon Dioxide 30 mmol/L (22-29); Chloride 101 mmol/L (96-108); Creatinine Clr Calc Pharmacy 112.0; Estimated Glomerular Filt Rate > 60; Potassium 4.2 mmol/L (3.3-5.1); Sodium 138 mmol/L (135-145); Total Protein 8.0 g/dL (6.5-8.0)
[2025-07-01 07:21] VITALS: BP 127/76; PULSE 59; RESP 18; TEMP 36.2; O2SAT 96
[2025-07-01 07:48] LABS: White Blood Count 6.5 X10*3/uL (4.8-10.8)
[2025-07-01] MEDS: methADONE HCl 20 MG/2 ML ORAL.CONC 115 MG PO (09:12)
[2025-07-01 11:19] VITALS: BP 138/86; PULSE 58; RESP 18; TEMP 36.4; O2SAT 96
[2025-07-01 16:00] VITALS: BP 115/69; PULSE 50; RESP 18; TEMP 36.1; O2SAT 94
--- NOTE | 2025-07-01 16:31 | P.PNIM_ITS ---
Subjective Subjective Date of Service: 07/01/25 Interval History: The patient is doing well today. No new compalints of note. The patient has good PO intake of food and liquids Stooling andd urinating well. No overnight events Review of Systems Review of systems: As above, otherwise the patient denies any prior history of strokes, cold intolerance, migraine headaches, head trauma, no eyes, ears or nose problems, no problems swallowing or with phonation, no thyroid disease, denies any history of chest pain, palpitations, coronary disease, cough, sputum production, pneumonia, bronchitis, COPD or emphysema, she states she had some abdominal pain but got better with eating, denies nausea, vomiting, diarrhea, abdominal surgeries, melena, hematochezia, hematemesis, hematuria, kidney stones, liver problems, , no history of DVT or PE, leg edema, admits having left ankle surgery due to fracture. Thoracic spine surgery as noted above. Otherwise the review of systems negative Physical Exam 2 Exam: Exam: General: A&O x3, oriented to time place person and situtaion, comfortable, no pain Cardiac: S1, S2 auscultated with no S3/4, no MRG. Well perfused. Respiratory: Normal breath sounds auscultated throughout all lung zones, without wheezing, rales. Normal rate. GI/ : No abdominal pain on palpation, no masses or distentions. MSK: Normal ambulation without pain at bony prominences or musculature. Left sided vac-drain noted with serosanguinous drainage noted. Neurological: Normal neurological examination on overview, without obvious CN II-XII abnormalities. Vital Signs: Vital Signs: Last Vital Signs Temp 96.9 F 07/01/25 16:00 Pulse 50 07/01/25 16:00 Resp 18 07/01/25 16:00 BP 115/69 07/01/25 16:00 Pulse Ox 94 07/01/25 16:00 O2 Del Method Room Air 07/01/25 16:00 O2 Flow Rate 2 06/28/25 12:20 BMI result Body Mass Index 24.8 Const: Other: General: AO X 3, no acute distress Resp: CTA bilateral CVS: S1,S2,RRR GI: +BS, NT, no distention Skin: No rash Ext: left psoas drain in place with bloody output Neuro: motor grossly intact Psych: appropriate affect Objective Data Active Medications Acetaminophen (Acetaminophen 325 Mg Tablet) 650 mg PO Q4H PRN PRN Reason: Pain, Mild 1-3,fever,headache Last Admin: 07/01/25 13:59 Dose: 650 mg Documented By: JAKE Enoxaparin Sodium (Enoxaparin Sodium 40 Mg/0.4 Ml Syringe) 40 mg SUBCUT Q24H [facility] Last Admin: 06/30/25 22:17 Dose: 40 mg Documented By: LISA Hydroxyzine HCl (Hydroxyzine Hcl 50 Mg Tablet) 50 mg PO Q6H PRN PRN Reason: Anxiety Last Admin: 07/01/25 14:00 Dose: 50 mg Documented By: JAKE Cefazolin Sodium/Dextrose (Ancef) 2 gm in 50 mls @ 100 mls/hr IV Q8H [facility] Last Infusion: 07/01/25 13:08 Dose: Infused Documented By: JAKE Melatonin (Melatonin 3 Mg Tablet) 6 mg PO BEDTIME PRN PRN Reason: Insomnia Last Admin: 06/29/25 20:46 Dose: 6 mg Documented By: FRENCH Comments: per patient request Methadone HCl (Methadone Hcl 20 Mg/2 Ml Oral.Conc) 115 mg PO DAILY@0800 [facility] Last Admin: 07/01/25 09:12 Dose: 115 mg Documented By: JAKE Co-signed By: SHELIA Labs 07/01/25 06:28 07/01/25 06:28 Labs: Laboratory Results - last 24 hr 07/01/25 06:28 MCV 89.1 MCH 28.5 MCHC 32.0 RDW 15.5 Plt Count TNP MPV TNP Immature Gran % (Auto) 4.7 H Neut % (Auto) 64.5 Lymph % (Auto) 23.7 [place] % (Auto) 6.0 Eos % (Auto) 0.5 Baso % (Auto) 0.6 Lymph # (Auto) 1.6 [place] # (Auto) 0.4 Eos # (Auto) 0.0 Baso # (Auto) 0.0 Abs Immat Gran (auto) 0.31 H Absolute Neuts (auto) 4.2 Absolute Nucleated RBC 0.000 Nucleated RBC % (auto) 0.0 Smear Tech's Comments VERIFIED Anion Gap 11 L Estim Creat Clear Calc 112.0 Estimated GFR > 60 Random Glucose 77 Calcium 8.9 D Total Bilirubin 0.1 AST 30 ALT 9 Alkaline Phosphatase 81 Total Protein 8.0 Albumin 3.3 L Microbiology Microbiology Results: Microbiology 06/28/25 12:13 Gram Stain - Final Abscess Intra-abdominal Routine Culture - Final Methicillin Res Staph Aureus Anaerobic Culture - Preliminary Culture in progress. Assessment and Plan (1) MSSA bacteremia: Status: Acute Assessment and Plan: Readmit for MSSA septic shock and bacteremia. Was in ICU again for septic shock and bacteremia Persistent soft tissue fullness along the T6 through T8 levels suggestive of paraspinal phlegmon. Left Psoas infected hematoma not abscess, growing MSSA She was to complete 6 weeks of Cefazolin but left AMA prior admission. Blood cultures from 06/26 Staph Aureus PLAN - Continue Kefzol - Repeat Echo - ID consult reccs greatly appreciated (2) Septic shock: Status: Acute Assessment and Plan: RESOLVED Patient meets sepsis criteria for MSSA bacteremia. Source/ etiology undetermined as of yet; possible infected psoas muscle/ abscess vs. spinal nidus. Blood cultures from 06/26 Staph Aureus PLAN - Continue Kefzol - Repeat Echo - ID consult reccs greatly appreciated (3) Bacteremia: Status: Acute Assessment and Plan: Patient meets sepsis criteria for MSSA bacteremia. Source/ etiology undetermined as of yet; possible infected psoas muscle/ abscess vs. spinal nidus. Blood cultures from 06/26 Staph Aureus PLAN - Continue Kefzol - Repeat Echo - ID consult reccs greatly appreciated (4) Discitis thoracic region: Status: Acute Assessment and Plan: History of Discitis/Osteomyelitis/Abscess in thoracic spine area status post surgery at [facility] CT of thoracic spine (5) Polysubstance abuse: Status: Acute Assessment and Plan: Continue Methadone FU with Addiction medicine (6) Bradycardia: Status: Acute Assessment and Plan: Sinus bradycardia associated with metadone Stable (7) Transaminitis: Status: Acute Assessment and Plan: Transaminitis Likely due to the above. Trending down, outpatient follow-up/ follow up with Hepatology regarding HCV infection Quality Stroke Does the patient have a stroke diagnosis?: No VTE Prior VTE?: No VTE Risk Level:: Medical - moderate - high VTE Device Contraindication: N/A - Device Ordered VTE Drug Contraindication: N/A - Med Ordered (enoxaparin 40mg SQ OD )
--- NOTE | 2025-07-01 18:47 | PC.NURSE ---
P: Alteration in Comfort I: See nursing documentation and MD orders E: Pt reported pain per pain scale. PRN medications given with positive affect.
[2025-07-01 19:30] VITALS: BP 134/92; PULSE 61; RESP 16; TEMP 36.4; O2SAT 99
[2025-07-01 23:42] VITALS: BP 131/84; PULSE 50; RESP 16; TEMP 36.6; O2SAT 97
[2025-07-02 03:40] VITALS: BP 130/81; PULSE 52; RESP 16; TEMP 37.4; O2SAT 97
[2025-07-02 06:00] VITALS: BMI 25.1
[2025-07-02 07:00] LABS: Creatinine Clr Calc Pharmacy 101.0; Estimated Glomerular Filt Rate > 60
[2025-07-02 07:18] VITALS: BP 118/86; PULSE 57; RESP 16; TEMP 37.2; O2SAT 99
[2025-07-02] MEDS: methADONE HCl 20 MG/2 ML ORAL.CONC 115 MG PO (08:51)
--- NOTE | 2025-07-02 11:12 | MHC.CM.PN ---
Per rounds, provider waiting for ID and surg. input, anticipate DC [facility] on Saturday07/05/25, Guest dosing has been set up for Saturday start.
[2025-07-02 11:25] VITALS: BP 107/80; PULSE 56; RESP 16; TEMP 36.2; O2SAT 96
[2025-07-02 14:58] VITALS: BP 128/69; PULSE 54; RESP 18; TEMP 36.6; O2SAT 97
--- NOTE | 2025-07-02 17:25 | HO.PM.IMPN ---
Subjective Subjective Date of Service: 07/02/25 Interval History: Feels well today overall. No new complaints or issues to report. Patient has some discomfort with the vac-drain, producing serosanguinous discharge still. Otherwise, no new complaints,. Review of Systems Review of Systems: Yes all other systems are reviewed and are negative Physical Exam Exam: Exam: General: A&O x3, oriented to time place person and situtaion, comfortable, no pain Cardiac: S1, S2 auscultated with no S3/4, no MRG. Well perfused. Respiratory: Normal breath sounds auscultated throughout all lung zones, without wheezing, rales. Normal rate. GI/ : No abdominal pain on palpation, no masses or distentions. MSK: Normal ambulation without pain at bony prominences or musculature. Left sided vac-drain noted with serosanguinous drainage noted. Neurological: Normal neurological examination on overview, without obvious CN II-XII abnormalities. Vital Signs: Vital Signs: Last Vital Signs Temp 97.9 F 07/02/25 14:58 Pulse 54 07/02/25 14:58 Resp 18 07/02/25 14:58 BP 128/69 07/02/25 14:58 Pulse Ox 97 07/02/25 14:58 O2 Del Method Room Air 07/02/25 14:58 O2 Flow Rate 2 06/28/25 12:20 BMI result Body Mass Index 25.1 Const: Other: General: AO X 3, no acute distress Resp: CTA bilateral CVS: S1,S2,RRR GI: +BS, NT, no distention Skin: No rash Ext: left psoas drain in place with bloody output Neuro: motor grossly intact Psych: appropriate affect Objective Data Active Medications Acetaminophen (Acetaminophen 325 Mg Tablet) 650 mg PO Q4H PRN PRN Reason: Pain, Mild 1-3,fever,headache Last Admin: 07/02/25 12:42 Dose: 650 mg Documented By: RUSLAN Enoxaparin Sodium (Enoxaparin Sodium 40 Mg/0.4 Ml Syringe) 40 mg SUBCUT Q24H [facility] Last Admin: 07/01/25 21:29 Dose: 40 mg Documented By: ADRYAN Hydroxyzine HCl (Hydroxyzine Hcl 50 Mg Tablet) 50 mg PO Q6H PRN PRN Reason: Anxiety Last Admin: 07/01/25 14:00 Dose: 50 mg Documented By: JAKE Cefazolin Sodium/Dextrose (Ancef) 2 gm in 50 mls @ 100 mls/hr IV Q8H [facility] Last Infusion: 07/02/25 14:06 Dose: Infused Documented By: RUSLAN Melatonin (Melatonin 3 Mg Tablet) 6 mg PO BEDTIME PRN PRN Reason: Insomnia Last Admin: 06/29/25 20:46 Dose: 6 mg Documented By: FRENCH Comments: per patient request Methadone HCl (Methadone Hcl 20 Mg/2 Ml Oral.Conc) 115 mg PO DAILY@0800 [facility] Last Admin: 07/02/25 08:51 Dose: 115 mg Documented By: RUSLAN Co-signed By: LUCIUS Labs 07/01/25 06:28 07/02/25 06:11 Labs: Laboratory Results - last 24 hr 07/02/25 06:11 Estim Creat Clear Calc 101.0 Estimated GFR > 60 Microbiology Microbiology Results: Microbiology 07/01/25 11:50 Blood Culture - Preliminary Blood - Venous No growth after 24 hours. 06/28/25 12:13 Gram Stain - Final Abscess Intra-abdominal Routine Culture - Final Methicillin Res Staph Aureus Anaerobic Culture - Preliminary Culture in progress. Assessment and Plan (1) MSSA bacteremia: Status: Acute Assessment and Plan: Readmit for MSSA septic shock and bacteremia. Was in ICU again for septic shock and bacteremia Persistent soft tissue fullness along the T6 through T8 levels suggestive of paraspinal phlegmon. Left Psoas infected hematoma not abscess, growing MSSA She was to complete 6 weeks of Cefazolin but left AMA prior admission. Blood cultures from 06/26 Staph Aureus PLAN - Continue Kefzol - Repeat Echo - ID consult reccs greatly appreciated (2) Septic shock: Status: Acute Assessment and Plan: RESOLVED Patient meets sepsis criteria for MSSA bacteremia. Source/ etiology undetermined as of yet; possible infected psoas muscle/ abscess vs. spinal nidus. Blood cultures from 06/26 Staph Aureus PLAN - Continue Kefzol - Repeat Echo - ID consult reccs greatly appreciated (3) Bacteremia: Status: Acute Assessment and Plan: Patient meets sepsis criteria for MSSA bacteremia. Source/ etiology undetermined as of yet; possible infected psoas muscle/ abscess vs. spinal nidus. Blood cultures from 06/26 Staph Aureus PLAN - Continue Kefzol - Repeat Echo - ID consult reccs greatly appreciated (4) Discitis thoracic region: Status: Acute Assessment and Plan: History of Discitis/Osteomyelitis/Abscess in thoracic spine area status post surgery at [facility] CT of thoracic spine (5) Polysubstance abuse: Status: Acute Assessment and Plan: Continue Methadone FU with Addiction medicine (6) Bradycardia: Status: Acute Assessment and Plan: Sinus bradycardia associated with metadone Stable (7) Transaminitis: Status: Acute Assessment and Plan: Transaminitis Likely due to the above. Trending down, outpatient follow-up/ follow up with Hepatology regarding HCV infection Total time managing care of this patient today: 35 minutes. Quality Stroke Does the patient have a stroke diagnosis?: No VTE Prior VTE?: No VTE Risk Level:: Medical - moderate - high VTE Device Contraindication: N/A - Device Ordered VTE Drug Contraindication: N/A - Med Ordered (enoxaparin 40mg SQ OD )
[2025-07-02 18:58] VITALS: BP 106/60; PULSE 56; RESP 18; TEMP 36; O2SAT 98
[2025-07-02 23:42] VITALS: BP 115/66; PULSE 51; RESP 16; TEMP 36.4; O2SAT 98
[2025-07-03 04:00] VITALS: BP 110/57; PULSE 52; RESP 16; TEMP 36.3; O2SAT 98
[2025-07-03 07:38] VITALS: BP 115/71; PULSE 55; RESP 16; TEMP 36; O2SAT 94
[2025-07-03] MEDS: methADONE HCl 20 MG/2 ML ORAL.CONC 115 MG PO (07:48)
[2025-07-03 08:58] LABS: Creatinine Clr Calc Pharmacy 88.7; Estimated Glomerular Filt Rate > 60
[2025-07-03 12:00] VITALS: BP 107/66; PULSE 60; RESP 18; TEMP 36.4; O2SAT 97
--- NOTE | 2025-07-03 14:21 | MHC.RECOVRN ---
Met with pt. in 357-1 to f/u and offer support. Pt resting comfortably in bed. Alert and oriented and responding to voice. No reports of pain management issues. Reports current methadone dose effective. Pt reports that she is waiting to find out if she will need IV abx for 2 weeks or 6 weeks and is not sure of D/C location yet. No further expressed needs at this time. ACS to continue to follow and offer support while admitted.
--- NOTE | 2025-07-03 14:58 | P.PNIM_ITS ---
Subjective Subjective Date of Service: 07/03/25 Interval History: Feels well today overall. No new complaints or issues to report. Stooling and urinating well Eating and drinking well. Facility has tentatively accepted care. Review of Systems Review of systems: As above, otherwise the patient denies any prior history of strokes, cold intolerance, migraine headaches, head trauma, no eyes, ears or nose problems, no problems swallowing or with phonation, no thyroid disease, denies any history of chest pain, palpitations, coronary disease, cough, sputum production, pneumonia, bronchitis, COPD or emphysema, she states she had some abdominal pain but got better with eating, denies nausea, vomiting, diarrhea, abdominal surgeries, melena, hematochezia, hematemesis, hematuria, kidney stones, liver problems, , no history of DVT or PE, leg edema, admits having left ankle surgery due to fracture. Thoracic spine surgery as noted above. Otherwise the review of systems negative Physical Exam 2 Vital Signs: Vital Signs: Last Vital Signs Temp 97.5 F 07/03/25 12:00 Pulse 60 07/03/25 12:00 Resp 18 07/03/25 12:00 BP 107/66 07/03/25 12:00 Pulse Ox 97 07/03/25 12:00 O2 Del Method Room Air 07/03/25 12:00 O2 Flow Rate 2 06/28/25 12:20 BMI result Body Mass Index 25.1 Const: Other: General: AO X 3, no acute distress Resp: CTA bilateral CVS: S1,S2,RRR GI: +BS, NT, no distention Skin: No rash Ext: left psoas drain in place with bloody output Neuro: motor grossly intact Psych: appropriate affect Objective Data Active Medications Acetaminophen (Acetaminophen 325 Mg Tablet) 650 mg PO Q4H PRN PRN Reason: Pain, Mild 1-3,fever,headache Last Admin: 07/03/25 07:53 Dose: 650 mg Documented By: AUTUMN Enoxaparin Sodium (Enoxaparin Sodium 40 Mg/0.4 Ml Syringe) 40 mg SUBCUT Q24H [facility] Last Admin: 07/02/25 22:27 Dose: 40 mg Documented By: CAMERON Hydroxyzine HCl (Hydroxyzine Hcl 50 Mg Tablet) 50 mg PO Q6H PRN PRN Reason: Anxiety Last Admin: 07/02/25 20:18 Dose: 50 mg Documented By: CAMERON Cefazolin Sodium/Dextrose (Ancef) 2 gm in 50 mls @ 100 mls/hr IV Q8H [facility] Last Infusion: 07/03/25 13:20 Dose: Infused Documented By: AUTUMN Melatonin (Melatonin 3 Mg Tablet) 6 mg PO BEDTIME PRN PRN Reason: Insomnia Last Admin: 07/02/25 20:19 Dose: 6 mg Documented By: CAMERON Methadone HCl (Methadone Hcl 20 Mg/2 Ml Oral.Conc) 115 mg PO DAILY@0800 [facility] Last Admin: 07/03/25 07:48 Dose: 115 mg Documented By: AUTUMN Co-signed By: KRISTINM Labs 07/01/25 06:28 07/03/25 07:11 Labs: Laboratory Results - last 24 hr 07/03/25 07:11 Hold Purple Top SEE NOTE Estim Creat Clear Calc 88.7 Estimated GFR > 60 Microbiology Microbiology Results: Microbiology 07/01/25 11:50 Blood Culture - Preliminary Blood - Venous No growth after 48 hours. 06/28/25 12:13 Gram Stain - Final Abscess Intra-abdominal Routine Culture - Final Methicillin Res Staph Aureus Anaerobic Culture - Final Assessment and Plan (1) MSSA bacteremia: Status: Acute Assessment and Plan: Readmit for MSSA septic shock and bacteremia. Was in ICU again for septic shock and bacteremia Persistent soft tissue fullness along the T6 through T8 levels suggestive of paraspinal phlegmon. Left Psoas infected hematoma not abscess, growing MSSA She was to complete 6 weeks of Cefazolin but left AMA prior admission. 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 Source/ etiology undetermined as of yet; possible infected psoas muscle/ abscess vs. spinal nidus. Blood cultures from 06/26 Staph Aureus PLAN - Continue Kefzol (x4 weeks total); end date 07/18 - ID consult reccs greatly appreciated - Will require PICC line for chcf Abx - Reassess drain (left sided) placed by IR for removal (3) Bacteremia: Status: Acute Assessment and Plan: Patient meets sepsis criteria for MSSA bacteremia. Source/ etiology undetermined as of yet; possible infected psoas muscle/ abscess vs. spinal nidus. 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 Abx - Reassess drain (left sided) placed by IR for removal (4) Discitis thoracic region: Status: Acute Assessment and Plan: History of Discitis/Osteomyelitis/Abscess in thoracic spine area status post surgery at [facility] CT of thoracic spine was conducted Revealing T-vertebral phlegmon (5) Polysubstance abuse: Status: Acute Assessment and Plan: Continue Methadone FU with Addiction medicine (6) Bradycardia: Status: Acute Assessment and Plan: Sinus bradycardia associated with metadone Stable (7) Transaminitis: Status: Acute Assessment and Plan: Transaminitis Likely due to the above. Trending down, outpatient follow-up/ follow up with Hepatology regarding HCV infection Total time managing care of this patient today: 35 minutes. Quality Stroke Does the patient have a stroke diagnosis?: No VTE Prior VTE?: No VTE Risk Level:: Medical - moderate - high VTE Device Contraindication: N/A - Device Ordered VTE Drug Contraindication: N/A - Med Ordered (enoxaparin 40mg SQ OD )
[2025-07-03 15:23] VITALS: BP 111/67; PULSE 56; RESP 18; TEMP 36.3; O2SAT 94
--- NOTE | 2025-07-03 19:28 | PC.NURSE ---
Pt received Tylenol at 1646, pt still reporting pain around 7/10 to her back, Dr. Whitney made aware, requested a once order to help with breakthrough pain. New orders place, Will continue to reassess.
[2025-07-03 19:37] VITALS: BP 111/68; PULSE 52; RESP 18; TEMP 36.2; O2SAT 96
[2025-07-03 23:38] VITALS: BP 111/65; PULSE 54; RESP 16; TEMP 36.2; O2SAT 96
[2025-07-04 03:09] VITALS: BP 111/57; PULSE 50; RESP 18; TEMP 36.1; O2SAT 98
[2025-07-04 06:20] LABS: Creatinine Clr Calc Pharmacy 91.5; Estimated Glomerular Filt Rate > 60
[2025-07-04 07:25] VITALS: BP 117/71; PULSE 55; RESP 18; TEMP 36.2; O2SAT 98
[2025-07-04] MEDS: methADONE HCl 20 MG/2 ML ORAL.CONC 115 MG PO (08:05)
--- NOTE | 2025-07-04 11:15 | P.PNIM_ITS ---
Subjective Subjective Date of Service: 07/04/25 Interval History: Feels well today overall. No new complaints or issues to report. Stooling and urinating well Eating and drinking well. Facility has tentatively accepted care. The patient's drain has 10mls overnight of serosanguinous drainage; possible removal tomorrow if 24hr drainage 10mls or less Review of Systems Review of Systems: Yes all other systems are reviewed and are negative Physical Exam 2 Vital Signs: Vital Signs: Last Vital Signs Temp 97.2 F 07/04/25 07:25 Pulse 55 07/04/25 07:25 Resp 18 07/04/25 07:25 BP 117/71 07/04/25 07:25 Pulse Ox 98 07/04/25 07:25 O2 Del Method Room Air 07/04/25 07:25 O2 Flow Rate 2 06/28/25 12:20 BMI result Body Mass Index 25.1 Const: Other: General: AO X 3, no acute distress Resp: CTA bilateral CVS: S1,S2,RRR GI: +BS, NT, no distention Skin: No rash Ext: left psoas drain in place with bloody output Neuro: motor grossly intact Psych: appropriate affect Objective Data Active Medications Acetaminophen (Acetaminophen 325 Mg Tablet) 650 mg PO Q4H PRN PRN Reason: Pain, Mild 1-3,fever,headache Last Admin: 07/03/25 21:57 Dose: 650 mg Documented By: CAMERON Enoxaparin Sodium (Enoxaparin Sodium 40 Mg/0.4 Ml Syringe) 40 mg SUBCUT Q24H [facility] Last Admin: 07/03/25 21:57 Dose: 40 mg Documented By: CAMERON Hydroxyzine HCl (Hydroxyzine Hcl 50 Mg Tablet) 50 mg PO Q6H PRN PRN Reason: Anxiety Last Admin: 07/03/25 21:58 Dose: 50 mg Documented By: CAMERON Cefazolin Sodium/Dextrose (Ancef) 2 gm in 50 mls @ 100 mls/hr IV Q8H [facility] Last Infusion: 07/04/25 03:34 Dose: Infused Documented By: CAMERON Melatonin (Melatonin 3 Mg Tablet) 6 mg PO BEDTIME PRN PRN Reason: Insomnia Last Admin: 07/03/25 21:58 Dose: 6 mg Documented By: CAMERON Methadone HCl (Methadone Hcl 20 Mg/2 Ml Oral.Conc) 115 mg PO DAILY@0800 ANA Last Admin: 07/04/25 08:05 Dose: 115 mg Documented By: JO Co-signed By: LACHO Labs 07/01/25 06:28 07/04/25 05:42 Labs: Laboratory Results - last 24 hr 07/04/25 05:42 Hold Purple Top SEE NOTE Estim Creat Clear Calc 91.5 Estimated GFR > 60 Microbiology Microbiology Results: Microbiology 06/26/25 16:52 Blood Culture - Final Blood - Venous Staphylococcus aureus 07/01/25 11:50 Blood Culture - Preliminary Blood - Venous No growth after 48 hours. 06/28/25 12:13 Gram Stain - Final Abscess Intra-abdominal Routine Culture - Final Methicillin Res Staph Aureus Anaerobic Culture - Final Assessment and Plan (1) MSSA bacteremia: Status: Acute Assessment and Plan: Readmit for MSSA septic shock and bacteremia. Was in ICU again for septic shock and bacteremia Persistent soft tissue fullness along the T6 through T8 levels suggestive of paraspinal phlegmon. Left Psoas infected hematoma not abscess, growing MSSA She was to complete 6 weeks of Cefazolin but left AMA prior admission. Blood cultures from 06/26 Staph Aureus - repeat culture 07/01 negative s/p drain placement in left psoas abscess by IR The patient's drain has 10mls overnight of serosanguinous drainage; possible removal tomorrow if 24hr drainage 10mls or less PLAN - Continue Kefzol (x4 weeks total); end date 07/18 - ID consult reccs greatly appreciated - Will require PICC line for senior care Abx - Reassess drain (left sided) placed by IR for removal (2) Septic shock: Status: Acute Assessment and Plan: RESOLVED Patient meets sepsis criteria for MSSA bacteremia. Source/ etiology undetermined as of yet; possible infected psoas muscle/ abscess vs. spinal nidus. Blood cultures from 06/26 Staph Aureus Blood culture 07/01 negative PLAN - Continue Kefzol (x4 weeks total); end date 07/18 - ID consult reccs greatly appreciated - Will require PICC line for senior care Abx - Reassess drain (left sided) placed by IR for removal (3) Bacteremia: Status: Acute Assessment and Plan: Patient meets sepsis criteria for MSSA bacteremia. Source/ etiology undetermined as of yet; possible infected psoas muscle/ abscess vs. spinal nidus. Blood cultures from 06/26 Staph Aureus Blood culture 07/01 negative PLAN - Continue Kefzol (x4 weeks total); end date 07/18 - ID consult reccs greatly appreciated - Will require PICC line for senior care Abx - Reassess drain (left sided) placed by IR for removal (4) Discitis thoracic region: Status: Acute Assessment and Plan: History of Discitis/Osteomyelitis/Abscess in thoracic spine area status post surgery at [facility] CT of thoracic spine was conducted Revealing T-vertebral phlegmon Continue IV antibiotics as per ID for 4 weeks total (5) Polysubstance abuse: Status: Acute Assessment and Plan: Continue Methadone FU with Addiction medicine (6) Bradycardia: Status: Acute Assessment and Plan: Sinus bradycardia associated with metadone Stable (7) Transaminitis: Status: Acute Assessment and Plan: Transaminitis Likely due to the above. Trending down, outpatient follow-up/ follow up with Hepatology regarding HCV infection Total time managing care of this patient today: 35 minutes. Quality Stroke Does the patient have a stroke diagnosis?: No VTE Prior VTE?: No VTE Risk Level:: Medical - moderate - high VTE Device Contraindication: N/A - Device Ordered VTE Drug Contraindication: N/A - Med Ordered (enoxaparin 40mg SQ OD )
[2025-07-04 11:32] VITALS: BP 106/67; PULSE 63; RESP 18; TEMP 36.6; O2SAT 97
[2025-07-04 15:05] VITALS: BP 109/51; PULSE 62; RESP 18; TEMP 36.4; O2SAT 97
[2025-07-04 19:10] VITALS: BP 102/57; PULSE 55; RESP 18; TEMP 36.6; O2SAT 97
[2025-07-04 23:59] VITALS: BP 102/61; PULSE 54; RESP 18; TEMP 35.8; O2SAT 98
[2025-07-05] VITALS (7 sets, daily range): BP systolic 98–118; BP diastolic 57–72; PULSE 45–62; RESP 14–18; TEMP 36–36.5; O2SAT 96–98; BMI 26.0
--- NOTE | 2025-07-05 06:34 | PC.NURSE ---
Did not have to empty SHIRA drain all night, little to none in drain.
[2025-07-05 06:43] LABS: Creatinine Clr Calc Pharmacy 83.7; Estimated Glomerular Filt Rate > 60
[2025-07-05] MEDS: methADONE HCl 20 MG/2 ML ORAL.CONC 115 MG PO (07:43)
--- NOTE | 2025-07-05 10:41 | P.PNIM_ITS ---
Subjective Subjective Date of Service: 07/05/25 Interval History: f/u on MSSA bacteremia/sepsis, no new issues Physical Exam 2 Vital Signs: Vital Signs: Last Vital Signs Temp 97.6 F 07/05/25 07:22 Pulse 52 07/05/25 07:22 Resp 18 07/05/25 07:22 BP 111/72 07/05/25 07:22 Pulse Ox 98 07/05/25 07:22 O2 Del Method Nasal Cannula 07/05/25 07:22 O2 Flow Rate 2 06/28/25 12:20 BMI result Body Mass Index 26.0 Const: Other: General: AO X 3, no acute distress Resp: CTA bilateral CVS: S1,S2,RRR GI: +BS, NT, no distention Skin: No rash Neuro: motor grossly intact Psych: appropriate affect Objective Data Active Medications Acetaminophen (Acetaminophen 325 Mg Tablet) 650 mg PO Q4H PRN PRN Reason: Pain, Mild 1-3,fever,headache Last Admin: 07/04/25 22:40 Dose: 650 mg Documented By: CAMERON Enoxaparin Sodium (Enoxaparin Sodium 40 Mg/0.4 Ml Syringe) [address] [facility] Last Admin: 07/04/25 22:40 Dose: 40 mg Documented By: CAMERON Hydroxyzine HCl (Hydroxyzine Hcl 50 Mg Tablet) 50 mg PO Q6H PRN PRN Reason: Anxiety Last Admin: 07/04/25 22:39 Dose: 50 mg Documented By: CAMERON Cefazolin Sodium/Dextrose (Ancef) 2 gm in 50 mls @ 100 mls/hr IV Q8H [facility] Last Infusion: 07/05/25 03:50 Dose: Infused Documented By: CAMERON Melatonin (Melatonin 3 Mg Tablet) 6 mg PO BEDTIME PRN PRN Reason: Insomnia Last Admin: 07/04/25 22:39 Dose: 6 mg Documented By: CAMERON Methadone HCl (Methadone Hcl 20 Mg/2 Ml Oral.Conc) 115 mg PO DAILY@0800 [facility] Last Admin: 07/05/25 07:43 Dose: 115 mg Documented By: MATHEW Co-signed By: KOFI Labs 07/01/25 06:28 07/05/25 06:01 Labs: Laboratory Results - last 24 hr 07/05/25 06:01 Hold Purple Top SEE NOTE Estim Creat Clear Calc 83.7 Estimated GFR > 60 Microbiology Microbiology Results: Microbiology 06/26/25 16:52 Blood Culture - Final Blood - Venous Staphylococcus aureus Assessment and Plan (1) Cellulitis of extremity: Status: Acute (2) Bradycardia: Status: Acute Plan 44-year-old female with a past medical history of Polysubstance dependence, IV opiates, cocaine, HCV untreated, history of MSSA bacteremia in 2022. Admittedd 06/16 ti 27 for MSSA bacteremia, septic [place], left AMA and back again with septic shock bacteremia Readmit for MSSA septic shock and bacteremia. 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
--- NOTE | 2025-07-05 14:16 | MHC.CM.PN ---
Addendum entered by Mikayla Navarrete 07/05/25 14:33: Per Ann Hoskins, [facility] hasn't received our paperwork to start guest dosing. This CM called and spoke to [facility] to confirm and they state that haven't received the paperwork needed. Clinicals requested sent to [facility], with a tentative start date for guest dosing on 07/07. Original Note: EMR reviewed and per MD rounds, pt is not medically cleared for discharge due to management of MSSA bacteremia, PICC line placement pending. [facility] guest dosing set up, will plan for discharge to [facility] tomorrow 07/06.
--- NOTE | 2025-07-05 23:56 | PC.NURSE ---
Pt's IV leaking unable to get new IV via ultrasound notified.Pt for PICC line in am.
[2025-07-06 03:43] VITALS: BP 102/62; PULSE 51; RESP 16; TEMP 36.3; O2SAT 98
[2025-07-06 07:27] VITALS: BP 104/60; PULSE 53; RESP 18; TEMP 36.3; O2SAT 97
[2025-07-06 07:31] VITALS: BMI 26.5
[2025-07-06] MEDS: methADONE HCl 20 MG/2 ML ORAL.CONC 115 MG PO (08:02)
[2025-07-06 09:16] LABS: Creatinine Clr Calc Pharmacy 92.3; Estimated Glomerular Filt Rate > 60
--- NOTE | 2025-07-06 09:50 | HO.PICC ---
PICC Line Insertion NPICC Diagnosis: abscess/bacteremia Indication: senior care abt Pertinent Labs: reviewed Technique: Following informed consent including risks, benefits and alternatives and using sterile technique including cap and mask, sterile gown, glove and drape, the right arm was prepped and draped in the usual sterile fashion of full barrier technique with CHG. Following completion of [place] Protocol the skin and soft tissues were anesthetized with 1% Lidocaine plain. Using ultrasound guidance, right basilic vein access was obtained. Over an 0.018 wire through peel-away sheath, a 4FR single lumen PASV PICC line was positioned. Catheter length is 38cm internal length, 0cm external length, for a total trimmed length of 38cm. The procedure was performed in [facility]. Tip verification was performed by Shahla Santos with Sherlock 3CG. Tip located in SVC. Ultrasound was used to document vein patency and for needle entry. A formal ultrasound picture and cardiac rhythm strip was recorded. [employer] has released the line for use and it is currently dressed with a StatLock, Tegaderm, and CHG disc. Verification has been performed for blood return and line patency. Arm Circumference: 24cm Equipment: AppUpper - ASO POWERPICC solo with Sherlock 3cg tip Catheter Type: 4FR single lumen PASV PICC Lot #: [id number]
--- NOTE | 2025-07-06 11:01 | PM.DS ---
DS: Providers Provider Date of Service: 07/06/25 Date of admission: 06/26/25 22:14 Date of discharge: 07/06/25 Primary care physician: Unknown Physician Consults: 06/28/25 09:34 Consult to Infectious Diseases Routine Consulting Provider: [facility] Reason for consultation: mssa bacteremia, paraspinal phlegmon 06/28/25 09:41 Addiction Medicine Provider Routine Consulting Provider: Addiction Covering Reason for consultation: Opioid use disorder, on methadone DS: Diagnosis Discharge Diagnosis (1) Cellulitis of extremity: Status: Acute (2) Bradycardia: Status: Acute DS: Summary Hospital Course Hospital Course: Admission hpi Chief Complaint: Acute septic shock 44-year-old female with long history of IV drug abuse, history of diskitis, osteomyelitis and thoracic spine abscess status post surgery at [facility] in July of 2023 who was admitted on 06/16/2025 and left AMA on 07/14/2025.? Patient had been admitted for acute MSSA bacteremia of which she had a previous episode in 2022.? She was found to be in septic shock for which she was treated with IV fluids and vasopressors, antibiotics, she had edema, tenderness the setting of left arm cellulitis.? She had been initially treated with vancomycin and switch to cefazolin based on initial cultures which subsequently became negative.? Echocardiogram showed no vegetation.? Infectious Disease recommended Kefzol for 4 weeks.; however since the patient left, she admits that she did not take her medications.? She has continued to use drugs and receive her methadone at the same time. Today she returned to the emergency room complaining of back pain 8/10 in the midthoracic spine, localized, nonradiating, having a sensation of fever and with a documented temperature of 102.9 degrees upon arrival to the ER.? Initially normotensive but tachycardic and tachypneic and subsequently the patient became hypotensive with the lowest blood pressure of 74/38, the patient had received a total of 4 L of IV fluids without much improvement of her blood pressure and placed on pressors.? She was given cefepime.? Her workup revealed a white count of 14.8, H and H of 9.1 and 29 respectively, platelets 484, unremarkable electrolytes and a BUN to creatinine ratio of 23, lactic acid 3.4 which decreased to 1.5.? CRP of 8.55.? Urinalysis negative for infection, urine toxicology screen positive for opioids, methadone, fentanyl cocaine and marijuana.? Thoracic spine CT with contrast shows persistence of tissue fullness along T6 through T8 suggestive of paraspinal phlegmon.? No organizing or drainable fluid collection.? Erosions of T6 and T7 vertebral bodies similar to prior.? Stable compression fractures of T12 vertebral bodies with 50% height lost.? Posterior spinal fixation hardware bridges T8 through T10 vertebral bodies. Given ongoing hypotension the patient will be admitted to the ICU. Hospital course 44-year-old female with a past medical history of Polysubstance dependence, IV opiates, cocaine, HCV untreated, history of MSSA bacteremia in 2022. Admittedd 06/16 to for MSSA bacteremia, septic shock, left AMA and back again with septic shock bacteremia and was admitted through ICU for shock and transfered the next days. So essentially she is readmited for MSSA septic shock and bacteremia. there is also persistent soft tissue fullness along the T6 through T8 levels suggestive of paraspinal phlegmon and Left Psoas infected hematoma not abscess, growing MSSA She was to complete 6 weeks of Cefazolin but left AMA Blood cultures from 07/01 negative x 48 hors - Continue Kefzol (x4 weeks total); end date 07/18/25 per ID -A Picc line inserted today -A drain was put into left Psoas infected hematoma and removed 07/05 History of Discitis/Osteomyelitis/Abscess in thoracic spine area status post surgery at [facility] CT of thoracic spine --as stated above Polysubstance dependence continue Methadone, dose adjusted to 115 Sinus bradycardia associated with metadone, stable right now HCV outpatient follow up Transaminitis Likely due to the above Trending down, outpatient follow-up To short term rehab for less than 30 days Time Attestation Discharge Coordination Time (in mins): 45 Quality: Safe Use of Opioids Does Pt have an Active Cancer Diagnosis on the Problem List?: No Quality: Stroke Does the patient have a stroke diagnosis?: No Physical Exam Vital Signs: Vital Signs: Last Vital Signs Temp 97.3 F 07/06/25 07:27 Pulse 53 07/06/25 07:27 Resp 18 07/06/25 07:27 BP 104/60 07/06/25 07:27 Pulse Ox 97 07/06/25 07:27 O2 Del Method Room Air 07/06/25 07:27 O2 Flow Rate 2 06/28/25 12:20 BMI result Body Mass Index 26.5 DS: Data Data Completed and Pending Completed studies during hospitalization [Text1]: Procedures Drainage of Spinal Canal, Percutaneous Approach (09/19/23) Fluoroscopy of Spinal Cord (09/19/23) Insertion of Endotracheal Airway into Trachea, Via Natural or Artificial Opening (03/27/24) Insertion of Infusion Device into Lower Vein, Percutaneous Approach (03/27/24) Insertion of Infusion Device into Superior Vena Cava, Percutaneous Approach (03/27/24) Insertion of Infusion Device into Upper Vein, Percutaneous Approach (06/16/25) Introduction of Vasopressor into Central Vein, Percutaneous Approach (03/27/24) Respiratory Ventilation, 24-96 Consecutive Hours (03/27/24) Ultrasonography of Superior Vena Cava, Guidance (03/27/24) Labs on day of discharge: Laboratory Results - last 24 hr 07/06/25 07/06/25 05:20 08:37 Hold Purple Top SEE NOTE Creatinine 0.65 Estim Creat Clear Calc 92.3 Estimated GFR > 60 Preliminary micro results at discharge 07/01/25 11:50 Blood Culture - Preliminary Blood - Venous No growth after 48 hours. Discharge Plan Discharge Anticipated Discharge Date/Time: 07/06/25 11:04 Patient Disposition: er [facility] Discharge Diagnosis: MSSA bacteremia, discitis, infected hematoma Referrals: jorge hawkins [Other] - 1 Week Physician,Unknown J [Primary Care Provider, Medical] - 1 Week Discharge Medications: New hydroxyzine HCl 50 mg Tablet 50 mg PO Q6H PRN (Reason: Anxiety) Qty: 60 0RF acetaminophen 325 mg Tablet 650 mg PO Q4H PRN (Reason: Pain, Mild 1-3,Fever,Headache) Qty: 30 0RF cefazolin in dextrose (iso-os) 2 gram/50 mL Piggyback 50 ml IV Q8H Qty: 38 0RF Rx Instructions: End date 07/18 Discontinued methadone [Methadone Intensol] 10 mg/mL Concentrate 100 mg PO DAILY Discharge Orders: Discharge Order (Routine); Ordered 07/06/25 Ordered By: [facility] Diet: Advance to usual diet Activity on Discharge: As tolerated Stand Alone Forms: Patient Portal Discharge page Print Language: Sudanese Care Plan Goals: recovery from sepsis due to MSSA bacteremia Health Concerns: MSSA bacteremia, infected hematoma, discitis Plan of Treatment: Take Cefazolin IV (PICC) 2 gm q8 hours for 12 more days, ending 07/18/25 To short-term rehab for less than 30 days Assessment: See polo
--- NOTE | 2025-07-06 11:34 | MHC.CM.PN ---
pt booked for 5 to jorge roberson
[2025-07-06 12:27] VITALS: BP 104/59; PULSE 54; RESP 16; TEMP 36.2; O2SAT 96
[2025-07-06 15:38] VITALS: BP 104/59; PULSE 60; RESP 16; TEMP 36.1; O2SAT 98
--- NOTE | 2025-07-06 16:14 | MHC.RECOVRN ---
TW met with pt in rm [id number] to offer continued support Pt was sitting in bed watching TV, in no apparent distress, and was pleasant on approach Pt reports some restless leg and diaphoresis in the evening to attributes to withdrawal. She also states she has chronic back pain and requests an increase to 140mg of Methadone for management of symptoms. TW discussed w/ Savita Quintanilla THERMOSTAT MAKER and it was decided to maintain pt at current dose as titration could be assessed with OTP as pt is due to discharge.
[2025-07-06 16:33] VITALS: BP 99/57; PULSE 59; RESP 16; TEMP 36.3; O2SAT 97
== END 2025-07-06 17:42 | disposition skilled nursing facility (03) | DRG 720 ==
LOC: HO.ED 22:09 → HO.EDOVER 22:25 → HO.ICU 23:06 → HO.IMC 06-27 12:02 → HO.S3 07-02 16:08
PROVIDERS: Hospitalist; Radiology Diagnostic Radiology; Admitting Provider Physician Assistant Medical; Emergency Provider Internal Medicine; Visit Provider Internal Medicine
PROC: 0K9P30Z Drainage of Left Hip Muscle with Drainage Device, Percutaneous Approach (ICD-10-PCS; principal; 2025-06-28 11:30)
DX: A41.9 Sepsis, unspecified organism (principal); R65.21 Severe sepsis with septic shock; G92.8 Other toxic encephalopathy; M46.24 Osteomyelitis of vertebra, thoracic region; Z59.02 Unsheltered homelessness; F17.210 Nicotine dependence, cigarettes, uncomplicated; Z71.6 Tobacco abuse counseling; R00.1 Bradycardia, unspecified; T40.3X5A Adverse effect of methadone, initial encounter; F19.20 Other psychoactive substance dependence, uncomplicated; M46.44 Discitis, unspecified, thoracic region; D64.9 Anemia, unspecified; B18.2 Chronic viral hepatitis C; F11.20 Opioid dependence, uncomplicated; M79.81 Nontraumatic hematoma of soft tissue; B95.61 Methicillin susceptible Staphylococcus aureus infection as the cause of diseases classified elsewhere
CPT/HCPCS: 36415; 36573; 72129; 74176; 75989; 80053; 80307; 81001; 82272; 82565; 82803; 83605; 83735; 84100; 85007; 85014; 85018; 85025; 85027; 85652; 86140; 87040; 87070; 87073; 87077; 87147; 87186; 87205; 93306; 99152; 99285; C1729; C1751; C1769; J0131; J0613; J0690; J1650; J1885; J2250; J3010; J3374; J7120; P9047; Q9967; S9485

== ENCOUNTER → 2025-06-26 18:44 | Outpatient (BNV) | payer OTHER, SELFPAY | PROVIDERS: Emergency Provider Internal Medicine; Visit Provider Radiology Diagnostic Radiology | DX: M46.24 Osteomyelitis of vertebra, thoracic region (principal) | CPT/HCPCS: 72129; 74176 ==

== ENCOUNTER 2025-06-26 22:14 | Outpatient (BNV) | payer OTHER, SELFPAY | END 2025-06-28 11:38 | PROVIDERS: Admitting Provider Physician Assistant Medical; Emergency Provider Internal Medicine; Visit Provider Radiology Diagnostic Radiology | DX: K68.12 Psoas muscle abscess (principal) | CPT/HCPCS: 49406; 99152 ==

== ENCOUNTER 2025-06-26 22:14 | Outpatient (BNV) | payer OTHER, SELFPAY | END 2025-06-28 09:35 | PROVIDERS: Admitting Provider Physician Assistant Medical; Emergency Provider Internal Medicine; Visit Provider Internal Medicine | DX: I27.20 Pulmonary hypertension, unspecified (principal); I34.0 Nonrheumatic mitral (valve) insufficiency | CPT/HCPCS: 93306 ==

== ENCOUNTER → 2025-06-26 22:14 | Outpatient (BNV) | payer OTHER, SELFPAY | PROVIDERS: Admitting Provider Physician Assistant Medical; Emergency Provider Internal Medicine; Visit Provider Internal Medicine | DX: L03.114 Cellulitis of left upper limb (principal); R00.1 Bradycardia, unspecified | CPT/HCPCS: 99232 ==

== ENCOUNTER → 2025-06-26 22:14 | Outpatient (BNV) | payer OTHER, SELFPAY | PROVIDERS: Admitting Provider Physician Assistant Medical; Emergency Provider Internal Medicine; Visit Provider Physician Assistant Medical | DX: A41.9 Sepsis, unspecified organism (principal); R65.21 Severe sepsis with septic shock; F19.10 Other psychoactive substance abuse, uncomplicated; F11.90 Opioid use, unspecified, uncomplicated; L03.114 Cellulitis of left upper limb | CPT/HCPCS: 99291; 99292 ==

== ENCOUNTER → 2025-06-26 22:14 | Outpatient (BNV) | payer OTHER, SELFPAY | PROVIDERS: Admitting Provider Physician Assistant Medical; Emergency Provider Internal Medicine; Visit Provider Nurse Practitioner Psychiatric/Mental Health | DX: F11.90 Opioid use, unspecified, uncomplicated (principal) | CPT/HCPCS: 99222; 99232 ==

== ENCOUNTER 2025-07-28 12:50 | Emergency (ER) | payer OTHER, SELFPAY ==
--- NOTE | 2025-07-28 13:00 | ED_ITS ---
[facility] - General Adult General Chief complaint: Neck Pain/Injury Stated complaint: neck pain Time Seen by Provider: 07/28/25 14:49 Source: patient Mode of arrival: ambulatory Limitations: no limitations History of Present Illness ED Provider: HPI narrative: 44-year-old woman with history of polysubstance use disorder, currently does not inject IV drugs she continues to use crack cocaine, presenting with pains over her back, patient states that when she was in the hospital admitted with diskitis osteomyelitis her methadone dose was cut down to 70 now she is back up to 125 but she has been having pain ever since her hospital admission and discharge no fevers or chills, she has as she feels swelling over the cervical spine just to the right of it, without drainage no erythema has had no fevers. She has without permanent residence lives in the [facility]. No weakness in upper or lower extremities no chest pain. Related Data Previous Rx's ?Medication ?Instructions ?Recorded acetaminophen 325 mg tablet 650 mg (2 x 325 mg) PO Q4H PRN 07/06/25 Pain, Mild 1-3,Fever,Headache #30 tabs cefazolin 2 gram/50 mL in dextrose 50 ml IV Q8H #38 ea 07/06/25 (iso-osmotic) intravenous piggyback hydroxyzine HCl 50 mg tablet 50 mg PO Q6H PRN Anxiety #60 tabs 07/06/25 Allergies Allergy/AdvReac Type Severity Reaction Status Date / Time No Known Allergies Allergy Verified 07/28/25 13:05 Review of Systems 2 Constitutional: Constitutional: Reports as per [facility] Past Medical History Medical History Opioid use disorder Bacteremia Polysubstance use disorder Hepatitis C antibody positive in blood Cocaine abuse Heroin abuse PTSD (post-traumatic stress disorder) Depression Anxiety Opiate abuse, continuous Social History Social History Household Members: Other Housing: Homeless Do you presently have visiting nurse or other home services: No Unable to assess alcohol history related to: Unknown Alcohol intake: never Comment: pt refusing bed alarm and staff assistance Patient Tobacco Use Status: Current everyday Tobacco user Tobacco use type: Cigarette Cigarette Packs Per Day: 1 Cigarettes Per Day: 20.0 Years Smoked: 30 e-Cigarette/Vaping Use: Never Used Second Hand Smoke Exposure: Yes Substance Use Type: Heroin and Opiates Advance Directives: Yes Advance Directives on File: Yes Advance Directives Date on File: 10/03/23 service: No Physical Exam ED Vital Signs: Vital Signs - 24 hr 07/28/25 13:01 07/28/25 15:05 07/28/25 15:24 Temperature 98.1 F 99.2 F Pulse Rate 82 81 Respiratory Rate 20 18 17 Blood Pressure 123/64 117/77 104/69 Pulse Oximetry 95 98 Oxygen Delivery Method Room Air Room Air Room Air BMI result Body Mass Index 24.4 Const Other: * Gen: ?Appears older than stated age * HEENT: Poor dentition, moist oral mucosa, no scleral icterus * Neck: Paraspinal tenderness with likely a spasm in the lower cervical upper thoracic area without fluctuance, cervical kyphosis * CV: RRR, no obvious murmurs appreciated * Resp: ?No wheezing rales rhonchi no stridor moving air well * Abd: ?Bowel sounds are present, no tenderness no rebound no rigidity * MSK: FROM, strength 5/5 all extremities * Skin: Warm, dry, intact, no rashes * Neuro: ?Alert and oriented x3, moving upper and lower extremities symmetrically, no obvious facial asymmetry noted Course Course Course Narrative: This is a Rapid Medical Examination (RME) performed by Mitesh Ferrera PA-C in triage. Full HPI, ROS, assessment and treatment plan per primary provider in the Main ED. Hx: 44 yo F hx of IVDU (cocaine - last used a few weeks ago), thoracic discitis/osteomyelitis, epidural abscess, MSSA bacteremia here for eval of upper back/neck pain x days. PE/vitals: uncomfortable appearing, hunched over in pain, noted swelling over midline t spine without overlying erythema. Plan: labs, inflammatory markers - will defer imaging at this time. 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 Medications Administered Discontinued Medications Generic Name Dose Route Start Last Admin Trade Name Freq PRN Reason Stop Dose Admin Ketorolac Tromethamine 15 mg 07/28/25 15:45 07/28/25 15:56 Ketorolac Tromethamine 15 Mg/Ml Vial IVPUSH 07/28/25 15:46 15 mg ONCE ONE Administration Procedures Ultrasound ED POC Ultrasound: Ultrasound Guided Peripheral Intravenous Catheter Placement Indication: Intravenous Access Location: [L] arm Provider: Self I was approached by nursing staff and informed that multiple unsuccessful attempts had been made to establish IV access in the patient. The patients arm was surveyed with the ultrasound for verification of vessel collapsibility, patency, depth and caliber, as well as identification of nearby structures. The target area was prepped with chlorhexidine. A tourniquet was placed proximally on the extremity. Under real-time ultrasound guidance, an 21 G 2.25 inch AccuCath nontunneled catheter was advanced into the target vein. Dark blood was visualized in the flash chamber. The catheter was easily advanced into the vein. The catheter was evacuated of air and flushed with sterile saline. The catheter was secured in place with a tegaderm. The patient tolerated the procedure well and there were no complications. Estimated Blood Loss: 1mL Total Time for Procedure: 5min Image stored CPT: 71743; 91738 Medical Decision Making Medical Decision Making MDM Narrative: High-risk individual although she does not use IV drugs and has finished IV medications for spinous infectious that she has had, I we will obtain CT cervical spine and thoracic spine with IV contrast as she has high-risk individual, she states she has been in pain ever since she was discharged in the hospital I reviewed all her prior workup and infectious disease notes as well, and she states she has been having pain since then, we will obtain blood cultures, lactate, imaging disposition to be determined 16:43 patient's inflammatory markers are high, lactic is high, she already had blood cultures and I was about to order antibiotics for her, I was told by the nurse that patient would like to leave, I went to speak to the patient I told her that I will provide medications for her for anxiety if she needs to her pain, I am not able to feed her but she can have water but patient states she does not care and she would like to leave, she understands that this can lead to her having worsening infection and dying or losing the functionality for arms or legs. Patient states she has not been using IV drugs she has only been snorting and she does not think she has not infection, I told her otherwise I believe she does have an infection but needs to be evaluated by CT, with that said patient has capacity to make decisions and I did ask that if she has to leave to sign AMA form, which she signed. Blood cultures has been obtained, I did not have a chance to load her with IV antibiotics, if she represents which I am sure she will I recommend CT cervical thoracic spine with IV contrast and repeating blood work, loading with antibiotics and anticipating admission that was my plan. Differential Diagnosis Differential Diagnoses: The differential diagnosis associated with the presentation includes (Diskitis osteomyelitis, spinal epidural abscess, musculoskeletal pain, chronic pain) Admission/Observation Consideration of admission/observation: Escalation of care including admission/observation considered Lab Data MDM Lab Attestation statement: I reviewed the patient's lab results. 07/28/25 15:47 07/28/25 15:47 Labs: Lab Results 07/28/25 07/28/25 07/28/25 Range/Units 15:22 15:23 15:46 WBC (4.8-10.8) X10*3/uL RBC (4.20-5.50) X10*6/uL Hgb (12.0-16.0) g/dl Hct (37.0-47.0) % MCV (80.0-98.0) fL MCH (27.0-33.0) pg MCHC (31.0-35.0) g/dl RDW (11.0-16.0) % Plt Count (160-400) X10*3/uL MPV (9.4-12.3) fL Immature Gran % (Auto) (0.0-0.4) % Neut % (Auto) (45-73) % Lymph % (Auto) (20-40) % [place] % (Auto) (2-11) % Eos % (Auto) (0-4) % Baso % (Auto) (0-2) % Lymph # (Auto) (1.2-4.9) X10*3/uL [place] # (Auto) (0.1-1.2) X10*3/uL Eos # (Auto) (0.0-0.4) X10*3/uL Baso # (Auto) (0.0-0.2) X10*3/uL Abs Immat Gran (auto) (0.00-0.03) X10*3/uL Absolute Neuts (auto) (2.0-8.3) x10*3/uL Absolute Nucleated RBC (0.0-0.012) X10*3/uL Nucleated RBC % (auto) (0.0-0.2) /100WBC ESR 104 H (0-20) MM/HR Sodium (135-145) mmol/L Potassium (3.3-5.1) mmol/L Chloride (96-108) mmol/L Carbon Dioxide (22-29) mmol/L Anion Gap (12-20) BUN (9-16) mg/dL Creatinine (0.5-1.4) mg/dL Estim Creat Clear Calc Estimated GFR Random Glucose (60-115) mg/dL Lactic Acid (0.5-2.0) mmol/L Calcium (8.4-10.2) mg/dL Magnesium (1.6-2.6) mg/dL Total Bilirubin (0.0-1.0) mg/dL AST (5-31) U/L ALT (0-31) U/L Alkaline Phosphatase (39-117) U/L C-Reactive Protein (< or = 0.50) mg/dL Total Protein (6.5-8.0) g/dL Albumin (3.5-5.0) g/dL Lipase (8-78) U/L Urine Color Dark Yellow Urine Appearance Clear Urine pH 5.5 (5.0-9.0) Ur Specific [place] >= 1.030 H (1.005-1.025) Urine Protein 30 (1+) H (Neg-Trace) mg/dL Urine Glucose (UA) Negative (Negative) mg/dL Urine Ketones Trace (Negative) mg/dL Urine Blood Negative (Negative) Urine Nitrite Negative (Negative) Ur Leukocyte Esterase Trace H (Negative) Urine RBC 0-2 (0-2) /HPF Urine WBC 0-5 (0-5) /HPF Ur Squamous Epith Cells 6-10 (0-2) /HPF Urine Bacteria None Seen (None Seen) Hyaline Casts >20 (0-2) /LPF Urine Opiates Screen Not Detected (Not Detect) Ur Buprenorphine Scrn Not Detected (Not Detect) ng/mL Ur Oxycodone Screen Not Detected (Not Detect) ng/mL Urine Methadone Screen Positive H (Not Detect) ng/mL Urine Fentanyl Screen POSITIVE H (Not Detect) Ur Barbiturates Screen Not Detected (Not Detect) Ur Phencyclidine Scrn Not Detected (Not Detect) Ur Amphetamines Screen Not Detected (Not Detect) U Benzodiazepines Scrn Not Detected (Not Detect) Urine Cocaine Screen POSITIVE H (Not Detect) U Marijuana (THC) Screen POSITIVE H (Not Detect) 07/28/25 07/28/25 Range/Units 15:47 15:59 WBC 13.9 H (4.8-10.8) X10*3/uL RBC 3.58 L (4.20-5.50) X10*6/uL Hgb 9.5 L (12.0-16.0) g/dl Hct 30.0 L (37.0-47.0) % MCV 83.8 (80.0-98.0) fL MCH 26.5 L (27.0-33.0) pg MCHC 31.7 (31.0-35.0) g/dl RDW 15.2 (11.0-16.0) % Plt Count 364 (160-400) X10*3/uL MPV 8.9 L (9.4-12.3) fL Immature Gran % (Auto) 0.6 H (0.0-0.4) % Neut % (Auto) 72.8 (45-73) % Lymph % (Auto) 17.1 L (20-40) % [place] % (Auto) 9.3 (2-11) % Eos % (Auto) 0.1 (0-4) % Baso % (Auto) 0.1 (0-2) % Lymph # (Auto) 2.4 (1.2-4.9) X10*3/uL [place] # (Auto) 1.3 H (0.1-1.2) X10*3/uL Eos # (Auto) 0.0 (0.0-0.4) X10*3/uL Baso # (Auto) 0.0 (0.0-0.2) X10*3/uL Abs Immat Gran (auto) 0.08 H (0.00-0.03) X10*3/uL Absolute Neuts (auto) 10.1 H (2.0-8.3) x10*3/uL Absolute Nucleated RBC 0.000 (0.0-0.012) X10*3/uL Nucleated RBC % (auto) 0.0 (0.0-0.2) /100WBC ESR (0-20) MM/HR Sodium 135 (135-145) mmol/L Potassium 3.6 (3.3-5.1) mmol/L Chloride 99 (96-108) mmol/L Carbon Dioxide 26 (22-29) mmol/L Anion Gap 14 (12-20) BUN 23 H (9-16) mg/dL Creatinine 0.78 (0.5-1.4) mg/dL Estim Creat Clear Calc 74.1 Estimated GFR > 60 Random Glucose 109 (60-115) mg/dL Lactic Acid 2.3 H* (0.5-2.0) mmol/L Calcium 9.0 (8.4-10.2) mg/dL Magnesium 2.0 (1.6-2.6) mg/dL Total Bilirubin 0.4 (0.0-1.0) mg/dL AST 43 H (5-31) U/L ALT 39 H (0-31) U/L Alkaline Phosphatase 128 H (39-117) U/L C-Reactive Protein 17.95 H (< or = 0.50) mg/dL Total Protein 9.1 H (6.5-8.0) g/dL Albumin 3.6 (3.5-5.0) g/dL Lipase 22 (8-78) U/L Urine Color Urine Appearance Urine pH (5.0-9.0) Ur Specific [place] (1.005-1.025) Urine Protein (Neg-Trace) mg/dL Urine Glucose (UA) (Negative) mg/dL Urine Ketones (Negative) mg/dL Urine Blood (Negative) Urine Nitrite (Negative) Ur Leukocyte Esterase (Negative) Urine RBC (0-2) /HPF Urine WBC (0-5) /HPF Ur Squamous Epith Cells (0-2) /HPF Urine Bacteria (None Seen) Hyaline Casts (0-2) /LPF Urine Opiates Screen (Not Detect) Ur Buprenorphine Scrn (Not Detect) ng/mL Ur Oxycodone Screen (Not Detect) ng/mL Urine Methadone Screen (Not Detect) ng/mL Urine Fentanyl Screen (Not Detect) Ur Barbiturates Screen (Not Detect) Ur Phencyclidine Scrn (Not Detect) Ur Amphetamines Screen (Not Detect) U Benzodiazepines Scrn (Not Detect) Urine Cocaine Screen (Not Detect) U Marijuana (THC) Screen (Not Detect) Radiology Impression Discussion of test interpretation with radiology: I have reviewed the radiologist's reading. External Record Review External record reviewed: Outpatient record, Prior outpatient labs and Prior outpatient radiology Prescription Management I considered prescription management with: Pain Medication and Antibiotic Chronic Conditions Patient?s care impacted by: Other (Polysubstance use disorder) Social Determinants Patient?s care significantly limited by Social Determinants of Health including: Inadequate housing, Low income, Problems related to primary support group and Unemployment Critical Care Time Critical Care Time Critical Care Time: Yes Total Critical Care Time: 35 Attestation: Time is exclusive of separately billable procedures. Time includes: direct patient care, patient reassessment, coordination of patient care, interpretation of data (laboratory data, pulse oximetry, arterial blood gases and chest xrays), review of patient's medical records, medical consultation and documentation of patient care. Procedures excluded from critical care time: central intravenous line placement and electrocardiography. Discharge Plan Discharge Clinical Impression: Discitis thoracic region, Polysubstance abuse Patient Disposition: Left Against Medical Advice Prescriptions: No Action acetaminophen 325 mg Tablet 650 mg PO Q4H PRN (Reason: Pain, Mild 1-3,Fever,Headache) Qty: 30 0RF hydroxyzine HCl 50 mg Tablet 50 mg PO Q6H PRN (Reason: Anxiety) Qty: 60 0RF cefazolin in dextrose (iso-os) 2 gram/50 mL Piggyback 50 ml IV Q8H Qty: 38 0RF Rx Instructions: End date 07/18 Stand Alone Forms: Against Medical Advice Discharge Date/Time: 07/28/25 17:19 Print Language: German
[2025-07-28 13:01] VITALS: BP 123/64; PULSE 82; RESP 20; TEMP 36.7; BMI 24.4
[2025-07-28 15:05] VITALS: BP 117/77; RESP 18; O2SAT 95
[2025-07-28 15:24] VITALS: BP 104/69; PULSE 81; RESP 17; TEMP 37.3; O2SAT 98
[2025-07-28 15:31] LABS: Appearance Urine Clear; Glucose Urine UA Negative (Negative); PH 5.5 (5.0-9.0); Specific Gravity - Urine >= 1.030 (1.005-1.025); UMIC TRIGGER UACC YES
[2025-07-28 15:38] LABS: Cannabinoid Screen Urine POSITIVE (Not Detect)
[2025-07-28 15:52] LABS: MANUAL DIFF FLAG NO
[2025-07-28 15:54] LABS: Hematocrit 30.0 % (37.0-47.0); Hemoglobin 9.5 g/dl (12.0-16.0); Imm Gran Abs Auto 0.08 X10*3/uL (0.00-0.03); Imm Gran Pct Auto 0.6 % (0.0-0.4); Lymphocytes Absolute Auto 2.4 X10*3/uL (1.2-4.9); Mean Corpuscular HGB Conc 31.7 g/dl (31.0-35.0); Mean Corpuscular Hemoglobin 26.5 pg (27.0-33.0); Mean Corpuscular Volume 83.8 fL (80.0-98.0); NRBC Abs Auto 0.000 X10*3/uL (0.0-0.012); NRBC Pct Auto 0.0 /100WBC (0.0-0.2); Platelet Count 364 X10*3/uL (160-400); Red Blood Count 3.58 X10*6/uL (4.20-5.50); White Blood Count 13.9 X10*3/uL (4.8-10.8)
[2025-07-28 16:09] LABS: Alanine Aminotransferase 39 U/L (0-31); Albumin Level 3.6 g/dL (3.5-5.0); Alkaline Phosphatase 128 U/L (39-117); Anion Gap 14 (12-20); Aspartate Amino Transferase 43 U/L (5-31); Blood Urea Nitrogen 23 mg/dL (9-16); Calcium 9.0 mg/dL (8.4-10.2); Carbon Dioxide 26 mmol/L (22-29); Chloride 99 mmol/L (96-108); Creatinine Clr Calc Pharmacy 74.1; Estimated Glomerular Filt Rate > 60; Lipase 22 U/L (8-78); Magnesium 2.0 mg/dL (1.6-2.6); Potassium 3.6 mmol/L (3.3-5.1); Sodium 135 mmol/L (135-145); Total Protein 9.1 g/dL (6.5-8.0)
--- NOTE | 2025-07-28 17:16 | PC.NURSE ---
Pt requesting to leave MD MARJORIE notified and at bedside to discuss with pt. Pt continues to request to leave, AMA form completed and IV removed prior to pt leaving. Ambulated out of ED with steady gait.
--- OUTSIDE RECORDS SUMMARY | 2025-07-28 17:27 | XMS_ITS | Clinical Summary ---
Author Organization [facility] it Address [address] [place] [address] Care Team Providers Care Mattress Specialist Name Role Phone Unavailable Primary Care Provider [...] Cervical Cancer Screening: P ap Smear 2003 Depression Screening 11/25/2024 COVID-19 Vaccine (1 - 2023-2 5 season) 2025 Influenza Vaccine (#1) 2025 HIB Vaccines Aged Out No longer [...] 5 Years) and At-Risk Patients (6 to 49 Years) Aged Out No longer eligible b ased on patient's age to complete this topic RSV Immunization Patients Un raghav 20 months Aged Out No longer eligible b ased on patient's age to complete this topic Varicella Vaccines Aged Out No longer eligible based on patient's age to complete this topic
--- OUTSIDE RECORDS SUMMARY | 2025-07-28 17:27 | XMS_ITS | Patient Health Record ---
Author Organization [facility] Address [address] [facility] [address] [place], [place] [id number] Care Team Providers Care Gate Manager Name Role Phone NACHO RIVERA Unavailable [phone] Allergies No Known Allergies Results Component Value Reference Range Flag Notes NuSwab VG+, Savannah 6sp-1800 68 Reviewed date:04/26/2025 09:48:50 AM Interpretation:BV positive Performing Lab:[facility] [place], [address] [place] [address], [place], Phone - [phone], Director - Sierra Notes/Report: and Drug Administration. by [facility]. It has not been cleared or approved by the Food was developed and its performance characteristics determined 374238-Saowhep krusei, HIGINIO 115749-U parapsilosis/tropicalis; 375263-Pekshyg lusitaniae, HIGINIO; Test(s) 392778-Mzuoxyt albicans, HIGINIO; 906137-Qvmwdfi glabrata, HIGINIO; and Drug Administration. by [facility]. It has not been cleared or approved by the [facility]fer[facility] was [facility] and its performance characteristics determined Megasphaera 1 Test(s) 104782- Atopobium vaginae; 662252- BVAB 2; 922532- Atopobium vaginae High - 2 A BVAB 2 High - 2 A Megasphaera 1 High - 2 A Calculate total score by adding the 3 individual bacterial vaginosis (BV) marker scores together. Total score is interpreted as follows: Total score 0-1: Indicates the absence of BV. Total score 2: Indeterminate for BV. Additional clinical data should be evaluated to establish a diagnosis. Total score 3-6: Indicates the presence of BV. Savannah albicans, HIGINIO Negative Negative Savannah glabrata, HIGINIO Negative Negative C parapsilosis/tropicalis Negative Negative This assay does not differentiate C. tropicalis and C. parapsilosis. Savannah lusitaniae, HIGINIO Negative Negative Savannah krusei, HIGINIO Negative Negative Trich vag by HIGINIO Negative Negative Chlamydia trachomatis, HIGINIO Negative Negative Neisseria gonorrhoeae, HIGINIO Negative Negative IGP, Apt HPV,rfx 16/18,45-19 9344 Reviewed date:05/03/2025 09:52:24 AM Interpretation:F/U needed: LSIL, HPV positive, BV chau shift Performing Lab:[facility], [address] [place] [address], Phone - [phone], Director - [facility] Notes/Report: No. of containers..01 ThinPrep Vial Clinical Information:SRC:Cervix [id number] No. of containers..01 ThinPrep Vial Clinical Information:SRC:Cervix [id number] DIAGNOSIS: A EPITHELIAL CELL ABNORMALITY. LOW GRADE SQUAMOUS INTRAEPITHELIAL LESION (LSIL). PREDOMINANCE OF COCCOBACILLI CONSISTENT WITH SHIFT IN VAGINAL CHAU IS PRESENT. Specimen adequacy: Satisf actory for evaluation. No endocervical component is identified. Clinician provided ICD10: Z12.4 Z11.51 Performed by: Heidi plunkett, Jaw Skinner (ASCP) Electronically signed by: Naina Beltran MD, Pathologist . . Pathologist provided ICD10: R87.612, R87.5 Note: The Pap smear is a screening test designed to aid in the detection of premalignant and malignant conditions of the uterine cervix. It is not a diagnostic procedure and should not be used as the sole means of detecting cervical cancer. Both false-positive and false-negative reports do occur. . Test Methodology: This liquid based ThinPrep(R) pap test was screened with the use of an image guided system. HPV Aptima Positive Negative A This nucleic acid amplification test detects fourteen high-risk HPV types (16,18,31,33,35,39,45,51,52 ,56,58,59,66,68) without differentiation. HPV Genotype 16 Negative Negative HPV Genotype 18,45 Negative Negative PDF Report Reviewed date:04/29/2025 09:08:50 AM Interpretation: Performing Lab:[facility], [address] [place] [address], Phone - [phone], Director - [facility] Notes/Report: Clinical Information:SRC:Cervix [id number] No. of containers..01 ThinPrep Vial Reason For Referral Reason LSIL, HPV pos (16/18 neg)- needs colposcopy per guidelines Diagnosis 1 Pap Smear - Unspecif ied Abnormal findings (R87.619) [facility] Referring Provider First Name NACHO Referring Provider Last Name MIGUEL Referring Provider Speciality Certified Nurse Wildlife Enforcement Major Referred Provider Maxine Estevez [facility] O[facility] and Midwifery Referred Provider Specialty OB - Gynecol ogy General Notes NACHO RIVERA 08:59:56 AM > Clt is homeless and unable to contact clt. Starting referral process in case clt comes into clinic or calls can then hopefully try to complete the referral process with them. Will ask [employer] to keep an eye out for client as well to help with the process. Clinical Notes Amanda Milton 2024 02:46:12 PM > referral printed and scanned. awaiting contact with clt to fax to [employer] Referral Priority Routine Immunizations Vaccine Route Administration Date Status Comme nts Alison Covid Vaccine IM Intramuscular 07/19/2021 Administ ered Social History Sex Assigned At : Social History Observation Description Sex Assigned At Female Social History HIV Risk Assessment Social Info Question Answer Notes Additional Questions Is an HIV Risk Asse ssment being conducted? No Reproductive Life Plan: Social Info Question Answer Notes Reproductive Life Plan: Do you want to have chil dren? No, I don't want to have children How sure are you that you will be able to use your control method without any problems? Sure People's plans change. Is it possible you or your partner could ever decide to become ? No Human Trafficking: Social Info Question Answer Notes Human Trafficking Experienced: No PrEP for HIV: Social Info Question Answer Notes PrEP for HIV Is the client intere sted in beginning/continuing PrEP for HIV? No Sexual History: Social Info Question Answer Notes Sexual History: Sexual History Reviewed: Partner s, Practices, Protection/Past STIs, Prevention of Currently sexually active? Yes Sexually active with: Men Number of male partners 1 Your sexual activities include: oral intercourse, vaginal intercourse Reviewed types of EC? No Do you use condoms? Yes Condoms are used: regularly Date of last unprotected intercourse: 04/22/2025 Number of partners in past 3 months: 1 Number of partners in past year: 1 What is the client's primary method to prevent at the end of their visit? Condoms - Male Does your partner(s) currently have any STIs? unsure Completed Gardasil vaccination series? No Counseling Provided: Social Info Question Answer Notes Counseling Provided Please indicate the length of time, in minutes, that counseling was provided. 10 Counseling Was Provided By: ness Drugs/Alcohol: Social Info Question Answer Notes Drug/Alcohol Use Do you or have you used drugs? Yes, c urrently By what route are you taking drugs? Please check all that apply: Injecting Which drug(s) do you inject? Heroin Do you share equpiment? Yes Have you been tested for Hepatitis C before? Yes tested positive for Hepatiti s C, has not received treatment yet Do you know about [facility] Syringe Access and Disposal Programs? Yes Do you have Narcan? Yes Do you want to quit drugs? Yes Do you or have you used alcohol? No Food Access: Social Info Question Answer Notes Food Access The Client's current access to food is Secure Food Access Relationships: Social Info Question Answer Notes Relationships Has the client experienced any of the following: Client has never experienced harmful relationships Housing Social Info Question Answer Notes Housing The client's current living situation is: unstable housing currently in communication w/ a coordinator, staying w/ a friend Tobacco Use: Social Info Question Answer Notes Tobacco Use: Do you/have you used tobacco? Yes, currently cigarette use How many cigarettes do you smoke per day? 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) Active confirmed Vital Signs Blood pressure diastolic 86 mm Hg 04/23/2025 Height 5'1 in 04/23/2025 Blood pressure systolic 126 mm Hg 04/23/2025 Weight 123.4 lbs 04/23/2025 BMI 23.31 kg/m2 04/23/2025 Encounters Encounter Location Date Provider Diagnosis Maxine Smileymaude [address] [place], [place] [id number] 04/23/2025 NACHO RIVERA Encounter for scre ening for infections with a predominantly sexual mode of transmission Z11.3 ; Routine Pap Screening Z12.4 ; Counseling, unspecified Z71.9 ; Other problems related to lifestyle Z72.89 ; HPV Pap Screening Z11.51 and Yeast Infection Screening Z11.8 [facility] [address] [id number] 04/26/2025 NACHOAMALIA RIVERA [address] [id number] 04/28/2025 NACHO RIVERA Assessments Encounter Date Diagnosis (ICD Code) Assessment Notes Treatment Notes Treatment Clinical Notes Section Notes 04/23/2025 Encounter for screening for infections with a predominantly sexual mode of transmission (ICD-10 - Z11.3) Discussed STI risks, screenings that are available through [facility] and safe sex. Clt aware of lab processing times and how to view results on portal and how positive results will be communicated Need 2 out of 3 Sections from A-C Section A) Problems (only need one from below) One acute or uncomplicated illness/injury Section B) Data (at least one of the following categories in this section) Category 1: (Choose 2 of the following): Order unique tests Section C) Risk Document low risk of morbidity/mortal ity 04/23/2025 Routine Pap Screening (ICD-10 - Z12.4) For routine pap screening today given likely many years since last screening. Will see if we can obtain records. Reassured clt that no condom found on exam today. Will do STI screening and vaginal infection testing- vaginal discharge BV'gerry appearance Need 2 out of 3 Sections from A-C Section A) Problems (only need one from below) One acute or uncomplicated illness/injury Section B) Data (at least one of the following categories in this section) Category 1: (Choose 2 of the following): Order unique tests Section C) Risk Document low risk of morbidity/mortal ity 04/23/2025 Counseling, unspecified (ICD-10 - Z71.9) Need 2 out of 3 Sections from A-C Section A) Problems (only need one from below) One acute or uncomplicated illness/injury Section B) Data (at least one of the following categories in this section) Category 1: (Choose 2 of the following): Order unique tests Section C) Risk Document low risk of morbidity/mortal ity 04/23/2025 Other problems related to lifestyle (ICD-10 - Z72.89) Need 2 out of 3 Sections from A-C Section A) Problems (only need one from below) One acute or uncomplicated illness/injury Section B) Data (at least one of the following categories in this section) Category 1: (Choose 2 of the following): Order unique tests Section C) Risk Document low risk of morbidity/mortal ity 04/23/2025 HPV Pap Screening (ICD-10 - Z11.51) Need 2 out of 3 Sections from A-C Section A) Problems (only need one from below) One acute or uncomplicated illness/injury Section B) Data (at least one of the following categories in this section) Category 1: (Choose 2 of the following): Order unique tests Section C) Risk Document low risk of morbidity/mortal ity 04/23/2025 Yeast Infection Screening (ICD-10 - Z11.8) Need 2 out of 3 Sections from A-C Section A) Problems (only need one from below) One acute or uncomplicated illness/injury Section B) Data (at least one of the following categories in this section) Category 1: (Choose 2 of the following): Order unique tests Section C) Risk Document low risk of morbidity/mortal ity Plan Of Treatment Pending Test Test Name Order Date CBC (COMPLETE BLOOD COUNT) 04/08/2023 CREATININE 04/08/2023 HEPATIC FUNCTION PANEL 04/08/2023 HEPATITIS A ANTIBODY, IGM 04/08/2023 HEPATITIS B SURFACE ANTIBODY, QUAL 04/08 HEPATITIS B SURFACE ANTIGEN 04/08/2023 HEPATITIS C ANTIBODY 04/08/2023 HEPATITIS C VIRAL LOAD, RNA, QUANTIFICAT ION 04/08/2023 HEPATITIS C VIRUS (HCV) FIBROSURE 2022 HEPATITIS C VIRUS (HCV) GENOTYPING 04/08 HIV ANTIBODY/ANTIGEN, 4TH GENERATION HIV-1 RNA QUANT (VIRAL LOAD), PLASMA , BLOOD, QUANTITATIVE PROTIME PROFILE 04/08/2023 Insurance Providers Payer Name Payer Address Payer Phone Subscriber Number Group Number Insured Name Patient Relationship to Insured Coverage Start Date Coverage End Date [place] ATT CLAIMS [address] [place] [id number] Norma Chiang Self - patient is the insured Medical (General) History Medical History History ICD Code Abnormal Pap smear, HPV, over 10 years a go Hepatitis C, untreated Migraines Depression/anxiety Surgical History Surgery Date(Month/Year) back surgery Hospitalization History Reason Date(Month/Year) childbirth
--- OUTSIDE RECORDS SUMMARY | 2025-07-28 17:27 | XMS_ITS | Clinical Summary ---
Author Organization [facility] Address [address] [facility] 7 [place] [address] Care Team Providers Care Senior Biostatistician/Group Leader Name Role Phone Barbara Cardoso MD Primary Care Provider [phone] Immunizations Immunization Administration Dates Next Due Pfizer Covid-19 Vaccine [...] 1982 HIV Screening 1982 SDOH Screening 1982 Disability Screening 1982 Alcohol/Substance Use Screening 1994 Tobacco Screening 1994 Family Planning (PISQ) 1997 HPV Vaccines (1 - 3-dose series) 1997 Hepatitis C Screening 2000 Pap Smear 2003 Cervical Cancer Screening 2012 HPV/Cotest 2012 Hepatitis B Vaccines (3 of 3 - 19+ 3-dose series) 01/30/2017 09/06/2016, 08/02/2016 Mammogram 2022 COVID-19 Vaccine (3 - 2023-2 5 season) 2024 01/17/2023, 07/19/2021 DTaP/Tdap/Td Vaccines (4 - T d or Tdap) 05/03/2025 05/03/2015, 11/25/2013, 05/31/2011 Influenza Vaccine (#1) 2025 Zoster Vaccines (1 of 2) 2032 RSV [...] Years) and At-Risk Patients (6 to 49) Years Aged Out No longer eligible b ased on patient's age to complete this topic RSV under 20 months Aged Out No longe r eligible based on patient's age to complete this topic Rotavirus Vaccines Aged Out No longer eligible based on patient's age to complete this topic Insurance Care Teams Senior Biostatistician/Group Leader Relationship Specialty Start Date End Date Barbara Cardoso MD [address] [place] [id number] PCP - General Family Medicine 02/25/24
[2025-07-28 18:07] LABS: Reflex Lactate? Lactic Acid Added
== END 2025-07-28 17:19 | disposition left against medical advice (07) ==
PROVIDERS: Physician Assistant Medical; Emergency Provider Emergency Medicine
DX: M46.44 Discitis, unspecified, thoracic region (principal); F11.20 Opioid dependence, uncomplicated; F14.10 Cocaine abuse, uncomplicated; F15.10 Other stimulant abuse, uncomplicated; Z72.0 Tobacco use; Z53.29 Procedure and treatment not carried out because of patient's decision for other reasons
CPT/HCPCS: 36415; 80053; 80307; 81001; 83605; 83690; 83735; 85025; 85652; 86140; 87040; 87077; 87147; 87186; 87205; 96374; 99284; 99285; J1885

== ENCOUNTER 2025-09-14 20:21 | Emergency (ER) | payer OTHER, SELFPAY ==
--- NOTE | ~2025-09-14 | XR_ITS ---
CLINICAL HISTORY: Chest pain, low O2 sat, R O pneumonia 2 view chest x-ray Comparison: CR/SR - XR CHEST 1 VIEW - 06/16/25 09:29 EDT Findings: No consolidation or effusion. Cardiomegaly. Posterior stabilization hardware thoracic spine. Lower thoracic previous spinal augmentation. Bones are osteopenic. IMPRESSION: 1. No acute findings. This document has been electronically signed by: Rachael Laboy MD on 09/15/2025 03:43:18
--- NOTE | ~2025-09-14 | MR_ITS ---
EXAMINATION: MR LUMBAR SPINE WITHOUT AND WITH CONTRAST CLINICAL INFORMATION: Low back pain. History of intravenous drug abuser. COMPARISON: Correlated to CT dated September 15, 2025 Prior MRI thoracic spine dated September 20, 2023 demonstrated discitis/osteomyelitis at T6-7. TECHNIQUE: MRI of the lumbar spine was obtained using routine sequences with and without contrast. Intravenous contrast: Gadolinium based (Gadavist) 5.0 mL. No reported immediate complications. FINDINGS: Paramagnetic field distortion secondary to metallic hardware T10-11 and likely kyphoplasty/vertebroplasty procedure at T12. Last rib-bearing vertebra labeled T12. Superior endplate compression deformity representing 40-50% volume loss and 3 mm retropulsion upon central canal at L1 with heterogeneous enhancement. Superior endplate compression deformity with associated subtle bone marrow STIR signal and representing 20% volume loss without retropulsion at L2. There is heterogeneous enhancement. No abnormal enhancement within the intervertebral discs nor the central spinal canal there is heterogeneous enhancement in the anterior and lateral aspect prevertebral soft tissue compartment from T12 to L1 without extension into the epidural compartment of the central spinal canal. No abnormal enhancement within the neural elements of the thecal sac or the conus medullaris. The conus medullaris and's at intervertebral disc height L1-2 with normal signal. T12-L1: Retropulsion of the posterior superior aspect of L1 resulting in ventral deformity of the thecal sac without compression upon the conus medullaris. L1-2: Broad-based disc bulging. Facet joint hypertrophy. No compression upon neural elements. L2-3: Broad-based disc bulging. Facet joint hypertrophy. No compression upon neural elements. L3-4: Broad-based disc bulging. Facet joint and ligamentum flavum hypertrophy. Reduced AP diameter of the thecal sac and neuroforamina. L4-5: Broad-based disc bulging. Facet joint and ligamentum flavum hypertrophy. Reduced AP diameter of the thecal sac and neuroforamina. L5-S1: Broad-based disc bulging. Facet joint hypertrophy. Reduced AP diameter of the thecal sac and neuroforamina. 16 mm hypointense T2 lesion within the lumen of the gallbladder. No hydronephrosis in either kidney. Bilateral small renal cysts. Spleen measures 18 cm. Liver measures 17 cm. MR/MR lumbar spine wo/w con IMPRESSION: Acute to subacute compression fracture deformities at T12, L1 and L2. Phlegmon versus abscess anterior lateral aspect prevertebral soft tissue compartment from T12 to L1 without epidural abscess. Superimposed osteomyelitis and L1 cannot be entirely excluded. Multilevel spondylosis resulting in central spinal canal and bilateral neuroforamina stenosis encroaching the neural elements from L3-4 to L5-S1. Cholelithiasis.. Electronically signed by: Alexandre Germain MD 09/15/2025 01:55 PM EDT
--- NOTE | ~2025-09-14 | XR_ITS ---
CLINICAL HISTORY: swelling 3 view right hand Comparison: None provided Findings: No dislocation. No arthritic change. No erosions. No radiopaque foreign body. Dorsal hand swelling. IMPRESSION: Acute intra-articular nondisplaced impacted fracture at the base of 5th metacarpal. This document has been electronically signed by: Rachael Laboy MD on 09/14/2025 21:46:14
--- NOTE | ~2025-09-14 | CT_ITS ---
CLINICAL HISTORY: Fall, thoracic and lumbar tenderness pain rule out --- Additional Notes or Special Instructions: Fracture CT lumbar spine without contrast Comparison: CR/SR - XR LUMBAR SPINE 2-3 VIEWS - 09/19/23 15:05 EDT Findings: Vertebral alignment is within normal limits. Acute moderate superior endplate L1 compression fracture. Previous moderate T12 compression fracture with spinal augmentation cement in place. Mild circumferential disc bulging L3-S1. Associated mild bilateral foraminal stenoses. Visualized abdominal contents unremarkable. IMPRESSION: Acute moderate superior endplate L1 compression fracture. This document has been electronically signed by: Rachael Laboy MD on 09/15/2025 03:53:22
--- NOTE | ~2025-09-14 | CT_ITS ---
CLINICAL HISTORY: Fall, thoracic and lumbar back pain, --- Additional Notes or Special Instructions: Rule out fracture CT thoracic spine without contrast Comparison: CT/SR - CT LUMBAR SPINE WO IV CON - 09/15/25 02:[address]/SR - CT THORACIC SPINE W IV CON - 06/26/25 19:19 EDT Findings: Posterior stabilization hardware T3-L1 unchanged. There is loosening of the T3 and T4 screws. T6-T7 posterior decompression. T7 vertebral body is absent. No change. T12 previous spine augmentation cement. Moderate compression deformity. Acute moderate L1 superior endplate compression fracture. There is a small area of ground-glass opacity in the right lower lobe at the T6-T8 level is unchanged. Nonspecific. No pleural effusion. Impression: 1. Interval hardware loosening at T3-T4 posterior stabilization hardware. 2. Acute L1 superior endplate moderate compression fracture. 3. Additional chronic findings as above. This document has been electronically signed by: Rachael Laboy MD on 09/15/2025 04:03:32
[2025-09-14 20:25] VITALS: BP 116/77; PULSE 72; O2SAT 95
[2025-09-14 20:29] VITALS: BP 124/69; PULSE 84; RESP 18; TEMP 37.2; O2SAT 89; BMI 22.7
[2025-09-14 20:38] VITALS: BP 124/69; PULSE 84; RESP 18; TEMP 37.2; O2SAT 98
--- NOTE | 2025-09-14 20:48 | PC.NURSE ---
Assumed care of pt, presents with right hand swelling after falling 6 hours ago, no LOC , no Blood thinners, no head-strike, Pt had back surgery x3 weeks ago at [facility], aaox4,
--- OUTSIDE RECORDS SUMMARY | 2025-09-14 21:49 | XMS_ITS | Patient Health Record ---
Author Organization [facility] Address [address] [place] [address] Care Team Providers Care Parliamentary Counsel Name Role Phone NACHO RIVERA Unavailable [phone] Allergies No Known Allergies Results Component Value Reference Range Flag Notes PDF Report Reviewed date:04/29/2025 09:08:50 AM Interpretation: Performing Lab:[facility], [address] [place] [address], Phone - [phone], Director - [facility] Notes/Report: No. of containers..01 ThinPrep Vial Clinical Information:SRC:Cervix [id number] IGP, Apt HPV,rfx 16/18,45-19 9344 Reviewed date:05/03/2025 09:52:24 AM Interpretation:F/U needed: LSIL, HPV positive, BV chau shift Performing Lab:[facility], [address] [place] [address], Phone - [phone], Director - [facility] Notes/Report: Clinical Information:SRC:Cervix [id number] No. of containers..01 ThinPrep Vial Clinical Information:SRC:Cervix [id number] No. of containers..01 ThinPrep Vial DIAGNOSIS: A EPITHELIAL CELL ABNORMALITY. LOW GRADE SQUAMOUS INTRAEPITHELIAL LESION (LSIL). PREDOMINANCE OF COCCOBACILLI CONSISTENT WITH SHIFT IN VAGINAL CHAU IS PRESENT. Specimen adequacy: Satisf actory for evaluation. No endocervical component is identified. Clinician provided ICD10: Z12.4 Z11.51 Performed by: Heidi plunkett, Quality Nurse (ASCP) Electronically signed by: Naina Beltran MD, [...] Negative Negative HPV Genotype 18,45 Negative Negative NuSwab VG+, Savannah 6sp-1800 68 Reviewed date:04/26/2025 09:48:50 AM Interpretation:BV positive Performing Lab:[facility], [address] [place] [address], [place], Phone - [phone], Director - [facility] Notes/Report: and Drug Administration. by [employer]. It has not been cleared or approved by the [employer] was [employer] and its performance characteristics determined 823543-Jsirbgx krusei, HIGINIO 817123-R parapsilosis/tropicalis; 413043-Dxltpqz lusitaniae, HIGINIO; Test(s) 933010-Bmcctge albicans, HIGINIO; 082131-Edvqivi glabrata, HIGINIO; and Drug Administration. by [employer]. It has not been cleared or approved by the [employer] was [employer] and its performance characteristics determined Megasphaera 1 Test(s) 563809- Atopobium vaginae; 338491- BVAB 2; 206456- Atopobium vaginae High - 2 A BVAB [...] Negative Negative Neisseria gonorrhoeae, HIGINIO Negative Negative Reason For Referral Reason LSIL, HPV pos (16/18 neg)- needs colposcopy per guidelines Diagnosis 1 Pap Smear - Unspecif ied Abnormal findings (R87.619) [facility] Referring Provider First Name NACHO Referring Provider Last Name MIGUEL Referring Provider Speciality Certified Nurse Guest Service Host Referred Provider Maxine Estevez [facility] er OBGYN and Midwifery Referred Provider Specialty [...] awaiting contact with clt to fax to PANTOGRAPH II ENGRAVER Referral Priority Routine Immunizations Vaccine Route Administration [...] received treatment yet Do you know about [facility] Syringe Access and Disposal Programs? 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) Active confirmed Vital Signs Blood pressure diastolic 86 mm Hg 04/23/2025 Height 5'1 in 04/23/2025 Blood pressure systolic 126 mm Hg 04/23/2025 Weight 123.4 lbs 04/23/2025 BMI 23.31 kg/m2 04/23/2025 Encounters Encounter Location Date Provider Diagnosis Maxine [address]maude [address] [place], [place] [phone] 04/23/2025 NACHO RIVERA Encounter for scre ening for infections with a predominantly sexual mode of transmission Z11.3 ; Routine Pap Screening Z12.4 ; Counseling, unspecified Z71.9 ; Other problems related to lifestyle Z72.89 ; HPV Pap Screening Z11.51 and Yeast Infection Screening Z11.8 [facility] [address] [id number] 04/26/2025 NACHOAMALIA RIVERA [address] [id number] 04/28/2025 NACHO RIVERA Assessments Encounter Date Diagnosis [...] ATT CLAIMS [address] [place] [id number] Norma Chiang Self - patient is the insured Medical (General) History Medical History History ICD Code Abnormal Pap smear, HPV, over 10 years a go Hepatitis C, untreated Migraines Depression/anxiety Surgical History Surgery Date(Month/Year) back surgery Hospitalization History Reason Date(Month/Year) childbirth
--- OUTSIDE RECORDS SUMMARY | 2025-09-14 21:49 | XMS_ITS | Encounter Summary ---
Author Organization [facility] Address [address] [place] [address] Care Team Providers Care Road Machine Operator Name Role Phone System, Provider Not In Primary Care Provider Un available Samanta Paulino RN Unavailable [phone] Encounter Details Date Type Department Care Team (Late st Contact Info) Description 04/10/2024 Scanned Document [facility] Neurosurgery [place] [address] [address] Arron Watters MD [address] [facility] [address] [place] [address] Social History Tobacco Use Types Packs/Day Years Used Date Smoking Tobacco: Every Day Cigarettes Alcohol Use Standard Drinks/Week Comments Not Currently 0 (1 standard drink = 0.6 oz pur e alcohol) [facility] Utilities Answer Date Recorded In the past 12 months has [employer], gas, oil, or water company threatened to shut off services in your home? Patient unable to answer 11/25/2023 AUDIT-C Answer Date Recorded Q1: How often do you have a drink containing alcohol? Never 11/23/2023 Q2: How many drinks containi ng alcohol do you have on a typical day when you are drinking? Patient does not drink Q3: How often do you have si x or more drinks on one occasion? Never 11/23/2023 Hunger Vital Sign Answer Date Recorded Within the past 12 months, y ou worried that your food would run out before you got the money to buy more. Patient unable to answer 11/25/2023 Within the past 12 months, t he food you bought just didn't last and you didn't have money to get more. Patient unable to answer 11/25/2023 PRAPARE - Transportation Answer Date Re corded In the past 12 months, has l ack of transportation kept you from medical appointments or from getting medications? Patient unable to answer 11/25/2023 In the past 12 months, has l ack of transportation kept you from meetings, work, or from getting things needed for daily living? Patient unable to answer 11/25/2023 Housing Stability Vital Sign Answer Saad e Recorded In the last 12 months, was t here a time when you were not able to pay the mortgage or rent on time? Patient unable to answer 11/25/2023 Number of Places Lived in the Last Year Not on f ile 11/25/2023 In the last 12 months, was t here a time when you did not have a steady place to sleep or slept in a alf (including now)? Patient unable to answer 11/25/2023 Comments Unknown Sex and Gender Information Value Date Recorded Sex Assigned at Female 11/23/2023 3:55 PM EST Legal Sex Female 11:54 AM EST Gender Identity Female 11/23/2023 3:55 PM EST Sexual Orientation Heterosexual (straight) 11/23 3:55 PM EST documented as of this encounter Plan of Treatment Not on file documented as of this encounter Visit Diagnoses Not on filedocumented in this encounter Care Teams Road Machine Operator Relationship Specialty Start Date End Date System, Provider Not In PCP - General 01/06/24 Samanta Paulino, BRITTANY [address] [place] [address] Nurse Navigator Surgery, Neurosurgery 08/11/25 documented as of this encounter
--- OUTSIDE RECORDS SUMMARY | 2025-09-14 21:49 | XMS_ITS | Encounter Summary ---
Author Organization [facility] Address [address] [place] [address] Care Team Providers Care Analytical Research Chemist Name Role Phone System, Provider Not In Primary Care Provider Un available Samanta Paulino RN Unavailable [phone] Encounter Details Date Type Department Care Team (Late st Contact Info) Description 01/31/2024 Scanned Document [facility] [place] [address] [facility] [address] [place] [id number] Neurosurgery, Scan Social History Tobacco Use Types Packs/Day Years Used Date Smoking Tobacco: Every Day Cigarettes Alcohol Use Standard Drinks/Week Comments Not Currently 0 (1 standard drink = 0.6 oz pur e alcohol) [facility] Utilities Answer Date Recorded In the past 12 months has [employer], gas, oil, or water [employer] threatened to shut off services in your [...] place to sleep or slept in a residential (including now)? Patient unable to answer 11/25/2023 [...] on filedocumented in this encounter Care Teams Analytical Research Chemist Relationship Specialty Start Date End Date System, Provider Not In PCP - General 01/06/24 Samanta Paulino RN [address] [place] [address] Nurse Navigator Surgery, Neurosurgery 08/11/25 documented as of this encounter
--- OUTSIDE RECORDS SUMMARY | 2025-09-14 21:50 | XMS_ITS | Clinical Summary ---
Author Organization [facility] Address [address] [place] [address] Care Team Providers Care Patent Examiner Name Role Phone System, Provider Not In Primary Care Provider Un available Samanta Paulino RN Unavailable Allergies No known active allergies Medications folic acid (FOLVITE) 1 MG tabletIndicatio ns:Pathological fracture of other site due to other disease, initial encounter,Absce ss of right lung without pneumonia, unspecified part of lung (HCC) Take 1 tablet (1 mg total) by mouth daily. 4 Active lactulose (ENULOSE) 10 gm/15 mL solutionIndicat ions:Pathologic al fracture of other site due to other disease, initial encounter,Absce ss of right lung without pneumonia, unspecified part of lung (HCC) Take 30 mL (20 g total) by mouth 3 (three) times a day. 4 Active magnesium hydroxide (MILK OF MAGNESIA) 400 mg/5 mL suspensionIndic ations:Patholog ical fracture of other site due to other disease, initial encounter,Absce ss of right lung without pneumonia, unspecified part of lung (HCC) Take 30 mL by mouth daily as needed for constipation. 4 Active multivitamin with minerals Tab tabletIndicatio ns:Pathological fracture of other site due to other disease, initial encounter,Absce ss of right lung without pneumonia, unspecified part of lung (HCC) Take 1 tablet by mouth daily. 4 Active naloxone (NARCAN) 0.4 mg/mL injectionIndica tions:Pathologi demar fracture of other site due to other disease, initial encounter,Absce ss of right lung without pneumonia, unspecified part of lung (HCC) Infuse 1 mL (0.4 mg total) into a venous catheter every 5 (five) minutes as needed for opioid reversal or respiratory depression. 4 Active ondansetron (ZOFRAN) 4 MG/2ML injectionIndica tions:Pathologi demar fracture of other site due to other disease, initial encounter,Absce ss of right lung without pneumonia, unspecified part of lung (HCC) Infuse 2 mL (4 mg total) into a venous catheter 4 times daily (every 6 hours) as needed for nausea or vomiting. 4 Active polyethylene glycol (miraLAx) 17 g packetIndicatio ns:Pathological fracture of other site due to other disease, initial encounter,Absce ss of right lung without pneumonia, unspecified part of lung (HCC) Take 1 packet (17 g total) by mouth 2 times a day. 4 Active acetaminophen (TYLENOL) 325 MG tabletIndicatio ns:Compression fracture of body of thoracic vertebra (HCC) Take 3 tablets (975 mg total) by mouth every 8 (eight) hours around the clock. 270 tablet 5 Active baclofen (LIORESAL) 10 MG tabletIndicatio ns:Compression fracture of body of thoracic vertebra (HCC) Take 1 tablet (10 mg total) by mouth 3 (three) times a day. 90 tablet 5 Active methadone (DOLOPHINE) 5 MG tabletIndicatio ns:Compression fracture of body of thoracic vertebra (HCC) Take 27 tablets (135 mg total) by mouth daily. Max Daily Amount: 135 mg 5 Active pregabalin (LYRICA) 50 MG capsuleIndicati ons:Compression fracture of body of thoracic vertebra (HCC) Take 1 capsule (50 mg total) by mouth 3 (three) times a day. 90 capsule 5 Active lidocaine (LIDODERM) 5 % patchIndication s:Compression fracture of body of thoracic vertebra (HCC) Place 1 patch on the skin daily. Apply patch and leave on for 12 hours then remove. Patch may remain on skin for 12 hours per day. 30 patch 5 Active thiamine mononitrate (VITAMIN B-1) 100 MG tabletIndicatio ns:Compression fracture of body of thoracic vertebra (HCC) Take 1 tablet (100 mg total) by mouth daily. 30 tablet 5 Active cefadroxil (DURICEF) 500 mg capsuleIndicati ons:Compression fracture of body of thoracic vertebra (HCC) Take 2 capsules (1,000 mg total) by mouth 2 (two) times a day. 112 capsule 5 09/09/20 25 Active Problems Problem Noted Date Diagnosed Date Severe back pain 08/09/2025 Assessment & Plan (08/11/2025 12:34 PM EDT): - continue cefazolin 2g q8h per ID - will likely switch to oral in a day or two to be on lifelong, ID now recommending no PICC - IR decided not to pursue kyphoplasty due to risk and Neurosurgery will do it tomorrow - TTE at [facility] did not show endocarditis - she has been requiring less dilaudid and said her pain has been improving on a daily basis - lyrica 50mg tid added and dilaudid decreased from 4-6 to 2-4mg po q4h prn - zofran prn - trend labs - TLSO brace for comfort when OOB/ambulating - per neurosurgery: Patient will need follow up in our office in 4 weeks with upright thoracic xrays, no changes in mgt based on MRI lumbar/thoracic spine Per Neurosurgery 08/11 IR deferring fx management to neurosurgery team Will ask endovascular neurosurgery team to eval for T12 kyphoplasty to prevent future collapse of T12 fx. 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 Per pain pharmacy 08/11 add Lyrica 50 mg TID and can likely reduce the Dilaudid to 2-4 mg PO q4h prn and likely further by tomorrow Per ID 08/10 Recommendations: - Continue cefazolin for now - I think we can hold off on PICC line placement. - She will be on lifelong antibiotics. I think we can plan to transition this prior to discharge which will make placement easier certainly as well as decrease risk for PICC associated complications - Follow-up with ID in 2 to 4 weeks following discharge, here versus [facility] ID providers Assessment & Plan (08/10/2025 1:57 PM EDT): - continue cefazolin 2g q8h per ID - will likely switch to oral in a day or two to be on lifelong, ID now recommending no PICC - consult placed for IR since blood cultures negative for 2 days - needs kyphoplasty per neurosx - Neurosx following - TTE at [facility] did not show endocarditis - pain pharmacy consulted yesterday and recommended switching IV dilaudid to po 4-6mg q4h, adding baclofen 10mg tid and tylenol 975 q8h scheduled - zofran prn - trend labs - TLSO brace for patient to be worn for comfort only when oob/amb - per neurosurgery : Patient will need follow up in our office in 4 weeks with upright thoracic xrays, no changes in mgt based on MRI lumbar/thoracic spine Per ID 08/10 Recommendations: - Continue cefazolin for now - I think we can hold off on PICC line placement. - She will be on lifelong antibiotics. I think we can plan to transition this prior to discharge which will make placement easier certainly as well as decrease risk for PICC associated complications - Follow-up with ID in 2 to 4 weeks following discharge, here versus [facility] ID providers Per Pain pharmacy Current Pain Regimen -Dilaudid 4-6 mg PO q4hrs prn x1 dose of each strength -Tylenol 975 mg PO q8hrs -Lidocaine 5% patch -methadone 135 mg PO daily--> monitor Qtc -baclofen 10 mg PO TID Plan: -Taper Dilaudid PO as patient tolerates -If patient continues to complain of severe pain can consider starting Lyrica 50 mg q8hrs. Can titrate up as patient tolerates. -Continue all other medications as ordered. Pharmacy pain management will sign off Assessment & Plan (08/09/2025 2:19 PM EDT): - HIV/hep C screen pending - continue cefazolin 2g q8h per ID - ID following, likely will require a PICC - IR will not do a kyphoplasty of T12 until infectious workup done - Neurosx following, waiting for MRI T/L spine with and without contrast - TTE at [facility] did not show endocarditis - pain pharmacy consulted and recommended switching IV dilaudid to po 4-6mg q4h, adding baclofen 10mg tid and tylenol 975 q8h scheduled -this was ordered - zofran prn - trend labs Per ID 08/08 Assessment: MSSA bacteremia--likely related to IVDU, repeat blood cultures pending here but per report were positive for MSSA at [facility]. She had a TTE at outside hospital that was reportedly not showing evidence of endocarditis Back pain-concern for recurrent vertebral osteomyelitis/discitis, hardware infection IVDU-active up until recently, reports being on methadone Hepatitis C-per her report Recommendations/Plan: Agree with cefazolin, continue 2 g IV every 8 hours Will update HIV, hepatitis C screening with a.m. labs Additional imaging requested, MRI has not yet been performed but discussions regarding further intervention will be based on imaging, neurosurgery opinion She will likely require prolonged course of antibiotic PICC line placement at some point once we are confident that blood cultures are sterile Per Neurosurgery 08/09 Transferred from OSH for persistent, severe back pain and recurrent MSSA bacteremia. ID following. CT thoracolumbar spine w/ contrast notable for possible loosening of the right T3 pedicle screw and compression deformity/kyphosis T12. MRI thoracolumbar spine w/o contrast with edema surrounding the T10/11 screws. She is neurologically intact without focal deficit. IR following for T12 kyphoplasty- awaiting negative blood cultures x 48 hours. Patient will need proximally revision of loosening hardware in upcoming weeks once infection quiescent. Patient politely declined any call for daily update. Plan: - Awaiting completion MRI T/L spine with and without contrast -TLSO brace for patient to be worn for comfort only. Call placed to [facility] for confirmation of delivery today. - ID following, cefazolin 2g IV q8. Will need PICC once cultures sterile. Patient may benefit from daily abx for lifelong suppression moving forward. - IR consult for T12 kyphoplasty- awaiting 48 hours negative blood cultures and f/u by ID - Pharmacy pain consult pending - Addiction medicine and Social work following Per IR 08/09 Chart and imaging reviewed. Patient is a 44-year-old female with past medical history of IV drug use, alcohol use disorder, prior discitis/osteomyelitis, MSSA tricuspid endocarditis and MSSA bacteremia requiring extensive neurosurgical intervention who presents as a transfer from [facility] with concern for spinal hardware infection and possible recurrent bacteremia. Follow-up blood cultures (negative x48 hours). Recommendations as per neurosurgery and infectious diseases. Please reconsult IR once infectious workup has concluded. Opioid use disorder 08/08/2025 Assessment & Plan (08/10/2025 1:57 PM EDT): HIV nonreactive, Hep C antibody reaction (hep C quantitative pending) QTC 450 - continue methadone 135mg daily - continue MVI, thiamine Assessment & Plan (08/09/2025 2:19 PM EDT): - continue methadone 135mg daily (qtc 450) - continue MVI, thiamine Assessment & Plan (08/08/2025 7:24 PM EDT): History of IVDU Continue methadone 135 mg Will confirm dose with [facility] on Saturday Will consult addiction medicine, social work History of osteomyelitis 08/08/2025 Assessment & Plan (08/11/2025 12:34 PM EDT): - continue cefazolin 2g q8h per ID - will likely switch to oral in a day or two to be on lifelong, ID now recommending no PICC - IR decided not to pursue kyphoplasty due to risk and Neurosurgery will do it tomorrow - TTE at [facility] did not show endocarditis - she has been requiring less dilaudid and said her pain has been improving on a daily basis - lyrica 50mg tid added and dilaudid decreased from 4-6 to 2-4mg po q4h prn - zofran prn - trend labs - TLSO brace for comfort when OOB/ambulating - per neurosurgery: Patient will need follow up in our office in 4 weeks with upright thoracic xrays, no changes in mgt based on MRI lumbar/thoracic spine Per Neurosurgery 08/11 IR deferring fx management to neurosurgery team Will ask endovascular neurosurgery team to eval for T12 kyphoplasty to prevent future collapse of T12 fx. 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 Per pain pharmacy 08/11 add Lyrica 50 mg TID and can likely reduce the Dilaudid to 2-4 mg PO q4h prn and likely further by tomorrow Per ID 08/10 Recommendations: - Continue cefazolin for now - I think we can hold off on PICC line placement. - She will be on lifelong antibiotics. I think we can plan to transition this prior to discharge which will make placement easier certainly as well as decrease risk for PICC associated complications - Follow-up with ID in 2 to 4 weeks following discharge, here versus [facility] ID providers Assessment & Plan (08/10/2025 1:57 PM EDT): - continue cefazolin 2g q8h per ID - will likely switch to oral in a day or two to be on lifelong, ID now recommending no PICC - consult placed for IR since blood cultures negative for 2 days - needs kyphoplasty per neurosx - Neurosx following - TTE at [facility] did not show endocarditis - pain pharmacy consulted yesterday and recommended switching IV dilaudid to po 4-6mg q4h, adding baclofen 10mg tid and tylenol 975 q8h scheduled - zofran prn - trend labs - TLSO brace for patient to be worn for comfort only when oob/amb - per neurosurgery : Patient will need follow up in our office in 4 weeks with upright thoracic xrays, no changes in mgt based on MRI lumbar/thoracic spine Per ID 08/10 Recommendations: - Continue cefazolin for now - I think we can hold off on PICC line placement. - She will be on lifelong antibiotics. I think we can plan to transition this prior to discharge which will make placement easier certainly as well as decrease risk for PICC associated complications - Follow-up with ID in 2 to 4 weeks following discharge, here versus [facility] ID providers Per Pain pharmacy Current Pain Regimen -Dilaudid 4-6 mg PO q4hrs prn x1 dose of each strength -Tylenol 975 mg PO q8hrs -Lidocaine 5% patch -methadone 135 mg PO daily--> monitor Qtc -baclofen 10 mg PO TID Plan: -Taper Dilaudid PO as patient tolerates -If patient continues to complain of severe pain can consider starting Lyrica 50 mg q8hrs. Can titrate up as patient tolerates. -Continue all other medications as ordered. Pharmacy pain management will sign off Assessment & Plan (08/09/2025 2:19 PM EDT): - HIV/hep C screen pending - continue cefazolin 2g q8h per ID - ID following, likely will require a PICC - IR will not do a kyphoplasty of T12 until infectious workup done - Neurosx following, waiting for MRI T/L spine with and without contrast - TTE at [facility] did not show endocarditis - pain pharmacy consulted and recommended switching IV dilaudid to po 4-6mg q4h, adding baclofen 10mg tid and tylenol 975 q8h scheduled -this was ordered - zofran prn - trend labs Per ID 08/08 Assessment: MSSA bacteremia--likely related to IVDU, repeat blood cultures pending here but per report were positive for MSSA at [facility]. She had a TTE at outside hospital that was reportedly not showing evidence of endocarditis Back pain-concern for recurrent vertebral osteomyelitis/discitis, hardware infection IVDU-active up until recently, reports being on methadone Hepatitis C-per her report Recommendations/Plan: Agree with cefazolin, continue 2 g IV every 8 hours Will update HIV, hepatitis C screening with a.m. labs Additional imaging requested, MRI has not yet been performed but discussions regarding further intervention will be based on imaging, neurosurgery opinion She will likely require prolonged course of antibiotic PICC line placement at some point once we are confident that blood cultures are sterile Per Neurosurgery 08/09 Transferred from OSH for persistent, severe back pain and recurrent MSSA bacteremia. ID following. CT thoracolumbar spine w/ contrast notable for possible loosening of the right T3 pedicle screw and compression deformity/kyphosis T12. MRI thoracolumbar spine w/o contrast with edema surrounding the T10/11 screws. She is neurologically intact without focal deficit. IR following for T12 kyphoplasty- awaiting negative blood cultures x 48 hours. Patient will need proximally revision of loosening hardware in upcoming weeks once infection quiescent. Patient politely declined any call for daily update. Plan: - Awaiting completion MRI T/L spine with and without contrast -TLSO brace for patient to be worn for comfort only. Call placed to [facility] for confirmation of delivery today. - ID following, cefazolin 2g IV q8. Will need PICC once cultures sterile. Patient may benefit from daily abx for lifelong suppression moving forward. - IR consult for T12 kyphoplasty- awaiting 48 hours negative blood cultures and f/u by ID - Pharmacy pain consult pending - Addiction medicine and Social work following Per IR 08/09 Chart and imaging reviewed. Patient is a 44-year-old female with past medical history of IV drug use, alcohol use disorder, prior discitis/osteomyelitis, MSSA tricuspid endocarditis and MSSA bacteremia requiring extensive neurosurgical intervention who presents as a transfer from [facility] with concern for spinal hardware infection and possible recurrent bacteremia. Follow-up blood cultures (negative x48 hours). Recommendations as per neurosurgery and infectious diseases. Please reconsult IR once infectious workup has concluded. Assessment & Plan (08/08/2025 7:24 PM EDT): Patient with history of IVDU with prior MSSA bacteremia complicated by discitis/osteomyelitis and TV endocarditis requiring surgeries in 2022 was transferred from [facility] with concern for thoracic hardware infection/possible osteomyelitis and MSSA bacteremia. Echocardiogram at [facility] did not show evidence of endocarditis Was recently transition from Zosyn/vancomycin to cefazolin per ID at OSH MRI of the thoracic spine showed T6 edema and loosening of the T3 pedicle hardware and increasing T3-T5 sensitive edema as well as T9-T10 No numbness or weakness of the lower extremities and no bowel or bladder incontinence Neurosurgery was consulted and was recommended no acute neurosurgical intervention, MRI TS and MRI LS ID was consulted recommended to continue cefazolin 2 g every 8 hours Continue Dilaudid, Tylenol for pain management Will consult pharmacy pain management team History of spinal cord compression 08/08/2025 Assessment & Plan (08/11/2025 12:34 PM EDT): - continue cefazolin 2g q8h per ID - will likely switch to oral in a day or two to be on lifelong, ID now recommending no PICC - IR decided not to pursue kyphoplasty due to risk and Neurosurgery will do it tomorrow - TTE at [facility] did not show endocarditis - she has been requiring less dilaudid and said her pain has been improving on a daily basis - lyrica 50mg tid added and dilaudid decreased from 4-6 to 2-4mg po q4h prn - zofran prn - trend labs - TLSO brace for comfort when OOB/ambulating - per neurosurgery: Patient will need follow up in our office in 4 weeks with upright thoracic xrays, no changes in mgt based on MRI lumbar/thoracic spine Per Neurosurgery 08/11 IR deferring fx management to neurosurgery team Will ask endovascular neurosurgery team to eval for T12 kyphoplasty to prevent future collapse of T12 fx. 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 Per pain pharmacy 08/11 add Lyrica 50 mg TID and can likely reduce the Dilaudid to 2-4 mg PO q4h prn and likely further by tomorrow Per ID 08/10 Recommendations: - Continue cefazolin for now - I think we can hold off on PICC line placement. - She will be on lifelong antibiotics. I think we can plan to transition this prior to discharge which will make placement easier certainly as well as decrease risk for PICC associated complications - Follow-up with ID in 2 to 4 weeks following discharge, here versus [facility] ID providers Assessment & Plan (08/10/2025 1:57 PM EDT): - continue cefazolin 2g q8h per ID - will likely switch to oral in a day or two to be on lifelong, ID now recommending no PICC - consult placed for IR since blood cultures negative for 2 days - needs kyphoplasty per neurosx - Neurosx following - TTE at [facility] did not show endocarditis - pain pharmacy consulted yesterday and recommended switching IV dilaudid to po 4-6mg q4h, adding baclofen 10mg tid and tylenol 975 q8h scheduled - zofran prn - trend labs - TLSO brace for patient to be worn for comfort only when oob/amb - per neurosurgery : Patient will need follow up in our office in 4 weeks with upright thoracic xrays, no changes in mgt based on MRI lumbar/thoracic spine Per ID 08/10 Recommendations: - Continue cefazolin for now - I think we can hold off on PICC line placement. - She will be on lifelong antibiotics. I think we can plan to transition this prior to discharge which will make placement easier certainly as well as decrease risk for PICC associated complications - Follow-up with ID in 2 to 4 weeks following discharge, here versus [facility] ID providers Per Pain pharmacy Current Pain Regimen -Dilaudid 4-6 mg PO q4hrs prn x1 dose of each strength -Tylenol 975 mg PO q8hrs -Lidocaine 5% patch -methadone 135 mg PO daily--> monitor Qtc -baclofen 10 mg PO TID Plan: -Taper Dilaudid PO as patient tolerates -If patient continues to complain of severe pain can consider starting Lyrica 50 mg q8hrs. Can titrate up as patient tolerates. -Continue all other medications as ordered. Pharmacy pain management will sign off Assessment & Plan (08/09/2025 2:19 PM EDT): - HIV/hep C screen pending - continue cefazolin 2g q8h per ID - ID following, likely will require a PICC - IR will not do a kyphoplasty of T12 until infectious workup done - Neurosx following, waiting for MRI T/L spine with and without contrast - TTE at [facility] did not show endocarditis - pain pharmacy consulted and recommended switching IV dilaudid to po 4-6mg q4h, adding baclofen 10mg tid and tylenol 975 q8h scheduled -this was ordered - zofran prn - trend labs Per ID 08/08 Assessment: MSSA bacteremia--likely related to IVDU, repeat blood cultures pending here but per report were positive for MSSA at [facility]. She had a TTE at outside hospital that was reportedly not showing evidence of endocarditis Back pain-concern for recurrent vertebral osteomyelitis/discitis, hardware infection IVDU-active up until recently, reports being on methadone Hepatitis C-per her report Recommendations/Plan: Agree with cefazolin, continue 2 g IV every 8 hours Will update HIV, hepatitis C screening with a.m. labs Additional imaging requested, MRI has not yet been performed but discussions regarding further intervention will be based on imaging, neurosurgery opinion She will likely require prolonged course of antibiotic PICC line placement at some point once we are confident that blood cultures are sterile Per Neurosurgery 08/09 Transferred from OSH for persistent, severe back pain and recurrent MSSA bacteremia. ID following. CT thoracolumbar spine w/ contrast notable for possible loosening of the right T3 pedicle screw and compression deformity/kyphosis T12. MRI thoracolumbar spine w/o contrast with edema surrounding the T10/11 screws. She is neurologically intact without focal deficit. IR following for T12 kyphoplasty- awaiting negative blood cultures x 48 hours. Patient will need proximally revision of loosening hardware in upcoming weeks once infection quiescent. Patient politely declined any call for daily update. Plan: - Awaiting completion MRI T/L spine with and without contrast -TLSO brace for patient to be worn for comfort only. Call placed to [facility] for confirmation of delivery today. - ID following, cefazolin 2g IV q8. Will need PICC once cultures sterile. Patient may benefit from daily abx for lifelong suppression moving forward. - IR consult for T12 kyphoplasty- awaiting 48 hours negative blood cultures and f/u by ID - Pharmacy pain consult pending - Addiction medicine and Social work following Per IR 08/09 Chart and imaging reviewed. Patient is a 44-year-old female with past medical history of IV drug use, alcohol use disorder, prior discitis/osteomyelitis, MSSA tricuspid endocarditis and MSSA bacteremia requiring extensive neurosurgical intervention who presents as a transfer from [facility] with concern for spinal hardware infection and possible recurrent bacteremia. Follow-up blood cultures (negative x48 hours). Recommendations as per neurosurgery and infectious diseases. Please reconsult IR once infectious workup has concluded. Assessment & Plan (08/08/2025 7:24 PM EDT): Patient with history of IVDU with prior MSSA bacteremia complicated by discitis/osteomyelitis and TV endocarditis requiring surgeries in 2022 was transferred from [facility] with concern for thoracic hardware infection/possible osteomyelitis and MSSA bacteremia. Echocardiogram at [facility] did not show evidence of endocarditis Was recently transition from Zosyn/vancomycin to cefazolin per ID at OSH MRI of the thoracic spine showed T6 edema and loosening of the T3 pedicle hardware and increasing T3-T5 sensitive edema as well as T9-T10 No numbness or weakness of the lower extremities and no bowel or bladder incontinence Neurosurgery was consulted and was recommended no acute neurosurgical intervention, MRI TS and MRI LS ID was consulted recommended to continue cefazolin 2 g every 8 hours Continue Dilaudid, Tylenol for pain management Will consult pharmacy pain management team MSSA bacteremia, hardware infection 08/07/2025 Assessment & Plan (08/11/2025 12:34 PM EDT): - continue cefazolin 2g q8h per ID - will likely switch to oral in a day or two to be on lifelong, ID now recommending no PICC - IR decided not to pursue kyphoplasty due to risk and Neurosurgery will do it tomorrow - TTE at [facility] did not show endocarditis - she has been requiring less dilaudid and said her pain has been improving on a daily basis - lyrica 50mg tid added and dilaudid decreased from 4-6 to 2-4mg po q4h prn - zofran prn - trend labs - TLSO brace for comfort when OOB/ambulating - per neurosurgery: Patient will need follow up in our office in 4 weeks with upright thoracic xrays, no changes in mgt based on MRI lumbar/thoracic spine Per Neurosurgery 08/11 IR deferring fx management to neurosurgery team Will ask endovascular neurosurgery team to eval for T12 kyphoplasty to prevent future collapse of T12 fx. 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 Per pain pharmacy 08/11 add Lyrica 50 mg TID and can likely reduce the Dilaudid to 2-4 mg PO q4h prn and likely further by tomorrow Per ID 08/10 Recommendations: - Continue cefazolin for now - I think we can hold off on PICC line placement. - She will be on lifelong antibiotics. I think we can plan to transition this prior to discharge which will make placement easier certainly as well as decrease risk for PICC associated complications - Follow-up with ID in 2 to 4 weeks following discharge, here versus [facility] ID providers Assessment & Plan (08/10/2025 1:57 PM EDT): - continue cefazolin 2g q8h per ID - will likely switch to oral in a day or two to be on lifelong, ID now recommending no PICC - consult placed for IR since blood cultures negative for 2 days - needs kyphoplasty per neurosx - Neurosx following - TTE at [facility] did not show endocarditis - pain pharmacy consulted yesterday and recommended switching IV dilaudid to po 4-6mg q4h, adding baclofen 10mg tid and tylenol 975 q8h scheduled - zofran prn - trend labs - TLSO brace for patient to be worn for comfort only when oob/amb - per neurosurgery : Patient will need follow up in our office in 4 weeks with upright thoracic xrays, no changes in mgt based on MRI lumbar/thoracic spine Per ID 08/10 Recommendations: - Continue cefazolin for now - I think we can hold off on PICC line placement. - She will be on lifelong antibiotics. I think we can plan to transition this prior to discharge which will make placement easier certainly as well as decrease risk for PICC associated complications - Follow-up with ID in 2 to 4 weeks following discharge, here versus [facility] ID providers Per Pain pharmacy Current Pain Regimen -Dilaudid 4-6 mg PO q4hrs prn x1 dose of each strength -Tylenol 975 mg PO q8hrs -Lidocaine 5% patch -methadone 135 mg PO daily--> monitor Qtc -baclofen 10 mg PO TID Plan: -Taper Dilaudid PO as patient tolerates -If patient continues to complain of severe pain can consider starting Lyrica 50 mg q8hrs. Can titrate up as patient tolerates. -Continue all other medications as ordered. Pharmacy pain management will sign off Assessment & Plan (08/09/2025 2:19 PM EDT): - HIV/hep C screen pending - continue cefazolin 2g q8h per ID - ID following, likely will require a PICC - IR will not do a kyphoplasty of T12 until infectious workup done - Neurosx following, waiting for MRI T/L spine with and without contrast - TTE at [facility] did not show endocarditis - pain pharmacy consulted and recommended switching IV dilaudid to po 4-6mg q4h, adding baclofen 10mg tid and tylenol 975 q8h scheduled -this was ordered - zofran prn - trend labs Per ID 08/08 Assessment: MSSA bacteremia--likely related to IVDU, repeat blood cultures pending here but per report were positive for MSSA at [facility]. She had a TTE at outside hospital that was reportedly not showing evidence of endocarditis Back pain-concern for recurrent vertebral osteomyelitis/discitis, hardware infection IVDU-active up until recently, reports being on methadone Hepatitis C-per her report Recommendations/Plan: Agree with cefazolin, continue 2 g IV every 8 hours Will update HIV, hepatitis C screening with a.m. labs Additional imaging requested, MRI has not yet been performed but discussions regarding further intervention will be based on imaging, neurosurgery opinion She will likely require prolonged course of antibiotic PICC line placement at some point once we are confident that blood cultures are sterile Per Neurosurgery 08/09 Transferred from OSH for persistent, severe back pain and recurrent MSSA bacteremia. ID following. CT thoracolumbar spine w/ contrast notable for possible loosening of the right T3 pedicle screw and compression deformity/kyphosis T12. MRI thoracolumbar spine w/o contrast with edema surrounding the T10/11 screws. She is neurologically intact without focal deficit. IR following for T12 kyphoplasty- awaiting negative blood cultures x 48 hours. Patient will need proximally revision of loosening hardware in upcoming weeks once infection quiescent. Patient politely declined any call for daily update. Plan: - Awaiting completion MRI T/L spine with and without contrast -TLSO brace for patient to be worn for comfort only. Call placed to [facility] for confirmation of delivery today. - ID following, cefazolin 2g IV q8. Will need PICC once cultures sterile. Patient may benefit from daily abx for lifelong suppression moving forward. - IR consult for T12 kyphoplasty- awaiting 48 hours negative blood cultures and f/u by ID - Pharmacy pain consult pending - Addiction medicine and Social work following Per IR 08/09 Chart and imaging reviewed. Patient is a 44-year-old female with past medical history of IV drug use, alcohol use disorder, prior discitis/osteomyelitis, MSSA tricuspid endocarditis and MSSA bacteremia requiring extensive neurosurgical intervention who presents as a transfer from [facility] with concern for spinal hardware infection and possible recurrent bacteremia. Follow-up blood cultures (negative x48 hours). Recommendations as per neurosurgery and infectious diseases. Please reconsult IR once infectious workup has concluded. Assessment & Plan (08/08/2025 7:24 PM EDT): Patient with history of IVDU with prior MSSA bacteremia complicated by discitis/osteomyelitis and TV endocarditis requiring surgeries in 2022 was transferred from [facility] with concern for thoracic hardware infection/possible osteomyelitis and MSSA bacteremia. Echocardiogram at [facility] did not show evidence of endocarditis Was recently transition from Zosyn/vancomycin to cefazolin per ID at OSH MRI of the thoracic spine showed T6 edema and loosening of the T3 pedicle hardware and increasing T3-T5 sensitive edema as well as T9-T10 No numbness or weakness of the lower extremities and no bowel or bladder incontinence Neurosurgery was consulted and was recommended no acute neurosurgical intervention, MRI TS and MRI LS ID was consulted recommended to continue cefazolin 2 g every 8 hours Continue Dilaudid, Tylenol for pain management Will consult pharmacy pain management team IVDU (intravenous drug user) 08/07/2025 Assessment & Plan (08/10/2025 1:57 PM EDT): HIV nonreactive, Hep C antibody reaction (hep C quantitative pending) QTC 450 - continue methadone 135mg daily - continue MVI, thiamine Assessment & Plan (08/09/2025 2:19 PM EDT): - continue methadone 135mg daily (qtc 450) - continue MVI, thiamine Assessment & Plan (08/08/2025 7:24 PM EDT): History of IVDU Continue methadone 135 mg Will confirm dose with [facility] clinic on Saturday Will consult addiction medicine, social work Alcohol use disorder 08/07/2025 Assessment & Plan (08/10/2025 1:57 PM EDT): HIV nonreactive, Hep C antibody reaction (hep C quantitative pending) QTC 450 - continue methadone 135mg daily - continue MVI, thiamine Assessment & Plan (08/09/2025 2:19 PM EDT): - continue methadone 135mg daily (qtc 450) - continue MVI, thiamine Assessment & Plan (08/08/2025 7:24 PM EDT): History of IVDU Continue methadone 135 mg Will confirm dose with N clinic on Saturday Will consult addiction medicine, social work Compression fracture of T12 vertebra 08/06/2025 Compression fracture of body of thoracic vertebr a 08/06/2025 GERD (gastroesophageal reflux disease) Abscess in epidural space of thoracic spine 10/27 Closed burst fracture of tho racic vertebra with delayed healing 11/23/2023 Thoracic spinal stenosis 11/23/2023 Pathologic thoracic fracture, sequela 11/23/2023 Spontaneous fracture 11/23/2023 Abscess of right lung without pneumonia 11/23/20 23 Resolved Problems Problem Noted Date Diagnosed Date Resolved Date Osteomyelitis 08/08/2025 08/10/2025 Assessment & Plan (08/09/2025 2:19 PM EDT): - HIV/hep C screen pending - continue cefazolin 2g q8h per ID - ID following, likely will require a PICC - IR will not do a kyphoplasty of T12 until infectious workup done - Neurosx following, waiting for MRI T/L spine with and without contrast - TTE at [facility] did not show endocarditis - pain pharmacy consulted and recommended switching IV dilaudid to po 4-6mg q4h, adding baclofen 10mg tid and tylenol 975 q8h scheduled -this was ordered - zofran prn - trend labs Per ID 08/08 Assessment: MSSA bacteremia--likely related to IVDU, repeat blood cultures pending here but per report were positive for MSSA at [facility]. She had a TTE at outside hospital that was reportedly not showing evidence of endocarditis Back pain-concern for recurrent vertebral osteomyelitis/discitis, hardware infection IVDU-active up until recently, reports being on methadone Hepatitis C-per her report Recommendations/Plan: Agree with cefazolin, continue 2 g IV every 8 hours Will update HIV, hepatitis C screening with a.m. labs Additional imaging requested, MRI has not yet been performed but discussions regarding further intervention will be based on imaging, neurosurgery opinion She will likely require prolonged course of antibiotic PICC line placement at some point once we are confident that blood cultures are sterile Per Neurosurgery 08/09 Transferred from OSH for persistent, severe back pain and recurrent MSSA bacteremia. ID following. CT thoracolumbar spine w/ contrast notable for possible loosening of the right T3 pedicle screw and compression deformity/kyphosis T12. MRI thoracolumbar spine w/o contrast with edema surrounding the T10/11 screws. She is neurologically intact without focal deficit. IR following for T12 kyphoplasty- awaiting negative blood cultures x 48 hours. Patient will need proximally revision of loosening hardware in upcoming weeks once infection quiescent. Patient politely declined any call for daily update. Plan: - Awaiting completion MRI T/L spine with and without contrast -TLSO brace for patient to be worn for comfort only. Call placed to [facility] for confirmation of delivery today. - ID following, cefazolin 2g IV q8. Will need PICC once cultures sterile. Patient may benefit from daily abx for lifelong suppression moving forward. - IR consult for T12 kyphoplasty- awaiting 48 hours negative blood cultures and f/u by ID - Pharmacy pain consult pending - Addiction medicine and Social work following Per IR 08/09 Chart and imaging reviewed. Patient is a 44-year-old female with past medical history of IV drug use, alcohol use disorder, prior discitis/osteomyelitis, MSSA tricuspid endocarditis and MSSA bacteremia requiring extensive neurosurgical intervention who presents as a transfer from [facility] with concern for spinal hardware infection and possible recurrent bacteremia. Follow-up blood cultures (negative x48 hours). Recommendations as per neurosurgery and infectious diseases. Please reconsult IR once infectious workup has concluded. Assessment & Plan (08/08/2025 7:24 PM EDT): Patient with history of IVDU with prior MSSA bacteremia complicated by discitis/osteomyelitis and TV endocarditis requiring surgeries in 2022 was transferred from [facility] with concern for thoracic hardware infection/possible osteomyelitis and MSSA bacteremia. Echocardiogram at [facility] did not show evidence of endocarditis Was recently transition from Zosyn/vancomycin to cefazolin per ID at OSH MRI of the thoracic spine showed T6 edema and loosening of the T3 pedicle hardware and increasing T3-T5 sensitive edema as well as T9-T10 No numbness or weakness of the lower extremities and no bowel or bladder incontinence Neurosurgery was consulted and was recommended no acute neurosurgical intervention, MRI TS and MRI LS ID was consulted recommended to continue cefazolin 2 g every 8 hours Continue Dilaudid, Tylenol for pain management Will consult pharmacy pain management team Encounters Date Type Department Care Team Description 09/07/[address] [facility] Neurosurgery [address] [phone] Samanta Paulino RN Appointment 08/17/[address] [facility] Neurosurgery [address] [phone] Samanta Paulino RN Post-discharge call 08/12/2025 1:47 PM EDT Anesthesia Event [facility] [address] [place] [phone] Aure Cardenas MD Ritchie, Agatha T PA-Kika 08/12/2025 10:23 AM EDT - 08/12/2025 12:24 PM EDT Surgery [facility] [address] [place] [phone] Jamey Vitale MD IR Vertebroplasty Cervicothoracic-1 Vert Body W/Guidance 08/07/2025 9:19 PM EDT - 08/12/2025 6:12 PM EDT Hospital Encounter [facility] [address] [place] [phone] Michelet Vance MD Morse, Emily, MD Shrestha, Monika, MD Khan, MD Marnie Compression fracture of T12 vertebra, initial encounter (HCC) (Primary Dx); Compression fracture of body of thoracic vertebra (HCC); Compression fracture of T12 vertebra with routine healing, subsequent encounter Discharge Disposition: Home or Self Care 08/07/2025 Travel 08/06/2025 3:45 PM EDT Ancillary Procedure [facility] [address] [place] [address], [place] [address] Provider, File Room 08/06/2025 3:40 PM EDT Ancillary Procedure [facility] [address] [place] [address], [place] [phone] Provider, File Room 08/06/2025 3:40 PM EDT Ancillary Procedure [facility] [address] [place] [address], [place] [address] Provider, File Room 08/06/2025 3:35 PM EDT Ancillary Procedure [facility] [address] [place] [address], [place] [address] Provider, File Room 08/06/2025 3:30 PM EDT Ancillary Procedure [facility] [address] [place] [address], [place] [address] Provider, File Room 08/04/2025 Orders Only [facility] [address] [facility] [place] [address] Provider, File Room from Last 3 Months Social History Tobacco Use Types Packs/Day Years Used Date Smoking Tobacco: Every Day Cigarettes Tobacco Cessation:Ready to Q uit: Not Asked; Counseling Given: Not Answered Alcohol Use Standard Drinks/Week Comments Not Currently 0 (1 standard drink = 0.6 oz pur e alcohol) [facility] Utilities Answer Date Recorded In the past 12 months has th e [employer], gas, oil, or water company threatened to shut off services in your home? Patient unable to answer 08/08/2025 AUDIT-C Answer Date Recorded Q1: How often [...] you got the money to buy more. Sometimes true Within the past 12 months, t he food you bought just didn't last and you didn't have money to get more. Sometimes true PRAPARE - Transportation Answer Date Re corded In the past 12 months, has l ack of transportation kept you from medical appointments or from getting medications? No 07/26 In the past 12 months, has l ack of transportation kept you from meetings, work, or from getting things needed for daily living? Yes 08/08/2025 Housing Stability Vital Sign Answer Saad e [...] place to sleep or slept in a [place] (including now)? Patient unable to answer 11/25/2023 Housing Stability Vital Sign Answer Saad e Recorded In the last 12 months, was t here a time when you were not able to pay the mortgage or rent on time? Yes 08/08/2025 In the past 12 months, how m any times have you moved where you were living? 0 08/08/2025 At any time in the past 12 m [facility], were you homeless or living in a [place] facility (including now)? Yes 08/08/2025 Comments Unknown Sex and Gender Information Value Date Recorded Sex Assigned at Female 11/23/2023 3:55 PM EST Legal Sex Female 11:54 AM EST Gender Identity Female 11/23/2023 3:55 PM EST Sexual Orientation Heterosexual (straight) 11/23 3:55 PM EST Last Filed Vital Signs Vital Sign Reading Time Taken Comments Blood Pressure 118/58 08/12/2025 4:00 PM EDT Pulse 64 08/12/2025 4:00 PM EDT Temperature 36.2 C (97.2 F) 08/12/2025 3:41 PM EDT Respiratory Rate 18 08/12/2025 4:00 PM EDT Oxygen Saturation 96% 08/12/2025 4:00 PM EDT Inhaled Oxygen Concentration - - Weight 50.7 kg (111 lb 12.4 oz) 08/08/2025 6:07 AM EDT Height 152.4 cm (5') 08/08/2025 6:07 AM EDT Body Mass Index 21.83 08/08/2025 6:07 AM EDT Plan of Treatment Health Maintenance Due Date Last Done Comments DTaP/Tdap/Td Vaccines (1 - Tdap) 2001 Hepatitis B Vaccines (1 of 3 - 19+ 3-dose series) 2001 Pneumococcal Vaccine: Pediat latha (0-5 Years) and At-Risk Patients (6 to 49 Years) (1 of 2 - PCV) 2001 Pap Smear (Ages 21-65) 2003 Mammogram 2022 Influenza Vaccine 06/25/2025 01/15/2016 COVID-19 Vaccine ( - 2024-2 6 season) 2025 01/17/2023 Chronic Controlled Substance User PDMP Review Discontinued 11/23/2023 HIV Screening Completed 08/08/2025, 10/27, 11/23/2023 Hepatitis C Virus Screening Completed 08/08/2025, 0 08/08/2025 HPV Vaccines (No Doses Required) Completed Medical Devices Implanted Type Area Quality Management Nurse Device Identifier Shelf Expiration Date Model / Serial / Lot Cx01a Cement Bone Kyphon Xpede Mxr - [id number] Implanted:Qty: 1 on 08/12/2025 by Jamey Vitale MD at [facility] Cement [employer] MINIMALLY INVASIVE T 03/24/2028 [id number] / / [id number] Davon Spinal Shoshana Red 100mm 5.5mm Matrix Straight Ti Hard - [id number] Implanted:Qty: 2 on 11/24/2023 by Arron Watters MD at [facility] Nail/Davon DEPUY SYNTHES - A NAINA AND 633.290 / / 633.330 Transconnector Davon 30-33mm 5.5mm 6mm Spine Ti Snpon - [id number] Implanted:Qty: 1 on 11/24/2023 by Arron Watters MD at [facility] Nail/Davon DEPUY SYNTHES - A NAINA AND 633.330 / / 633.326 Transconnector Davon 26-31mm 5.5mm 6mm Matrix 3 Spine Pdcl - [id number] Implanted:Qty: 1 on 11/24/2023 by Arron Watters MD at [facility] Nail/Davon DEPUY SYNTHES - A NAINA AND .326 / / [id number] Screw Bone Spine Poncho Vpr Prm 40mm 5mm Fix Angle Fenestrate - [id number] Implanted:Qty: 2 on 11/24/2023 by Arron Watters MD at [facility] Spine DEPUY SYNTHES - A NAINA AND [id number] / / [id number] Screw Bone Spine Poncho Vpr Prm 40mm 6mm Pa Fix Angle - [id number] Implanted:Qty: 4 on 11/24/2023 by Arron Watters MD at [facility] Spine DEPUY SYNTHES - A NAINA AND [id number] / / [id number] Screw Bone Spine Poncho Vpr Xpdm 30mm Ti 4.35mm Pa Fix Angle - [id number] Implanted:Qty: 2 on 11/24/2023 by Arron Watters MD at [facility] Spine DEPUY SYNTHES - A NAINA AND [id number] / / [id number] Screw Bone Spine Poncho Vpr Xpdm 35mm Ti 4.35mm Pa Fix Angle - [id number] Implanted:Qty: 2 on 11/24/2023 by Arron Watters MD at [facility] Spine DEPUY SYNTHES - A NAINA AND [id number] / / [id number] Screw Bone Spine Poncho Vpr 40mm Ti 5mm Pa Fix Angle Nonst 5.5 - [id number] Implanted:Qty: 2 on 11/24/2023 by Arron Watters MD at [facility] Spine DEPUY SYNTHES - A NAINA AND [id number] / / [id number] Screw Set Ti Spine 1 Inner Vpr Nonst 5.5 Mm Davon - [id number] Implanted:Qty: 14 on 11/24/2023 by Arron Watters MD at [facility] Spine DEPUY SYNTHES - A NAINA AND [id number] / / [id number] Screw Bone Spine Vpr Prm 35mm 5mm Pa Fix Angle Fenestrate - [id number] Implanted:Qty: 2 on 11/24/2023 by Arron Watters MD at [facility] Spine DEPUY SYNTHES - A NAINA AND [id number] / / [id number] Graft Bone Osteoamp Xl Algrf Cmpr Sponge 31n43l0mg - [id number] Implanted:Qty: 1 on 11/24/2023 by Arron Watters MD at [facility] Tissue N/A: Spine Thoracic [employer] 04/30/2028 [id number] / [id number] / [id number] Patch Dural 3x1in Thk3.5mm Crnmxf Drmtrx-[place] Plus Npor - [id number] Implanted:Qty: 1 on 11/24/2023 by Arron Watters MD at [facility] Tissue N/A: Spine Thoracic [employer] - DIV STRY [id number] 04/24/2026 [id number] / / [id number] Filler Bone Void 10cc Dbx Algrf Frzdr Putty - [id number] Implanted:Qty: 1 on 11/24/2023 by Arron Watters MD at [facility] Void Filler N/A: Spine Thoracic [employer]ANS[employer] FOU 06/18/2028 [id number] / [id number] / [id number] Filler Bone Void 10cc Dbx Algrf Frzdr Putty - [id number] Implanted:Qty: 1 on 11/24/2023 by Arron Watters MD at [facility] Void Filler N/A: Spine Thoracic [employer]LET[employer] TRANSPLANT FOU 06/18/2028 [id number] / [id number] / 07.801.101.99s Filler Bone Void [id number] Beta Tcp Chrns Rsrb Strp Sterl - [id number] Implanted:Qty: 1 on 11/24/2023 by Arron Watters MD at [facility] Void Filler N/A: Spine Thoracic DEPUY SYNTHES - A NAINA AND 01/22/2025 07.801.101 .99S / / [id number] Filler Bone Void 5cc Dbx Algrf Putty Frzdr - [id number] Implanted:Qty: 1 on 11/24/2023 by Arron Watters MD at [facility] Void Filler N/A: Spine Thoracic [employer]LET[employer] TRANSPL[employer]OU 09/16/2025 [id number] / [id number] / 07.801.101.99s Filler Bone Void [id number] Beta Tcp Chrns Rsrb Strp Sterl - [id number] Implanted:Qty: 1 on 11/26/2023 by Arron Watters MD at [facility] Void Filler N/A: Spine Thoracic DEPUY SYNTHES - A NAINA AND 01/22/2025 07.801.101 .99S / / [id number] [employer] Rods Implanted:Qty: 2 on 11/24/2023 by Arron Watters MD at [facility] [id number] / / Procedures Procedure Name Priority Date/Time Associated Diagnosis Comments ANES INTUBATION Routine 08/12/2025 2:06 PM EDT BETA-HCG, QUALITATIVE Routine 08/12/2025 6:12 AM EDT FIBRINOGEN LEVEL Routine 08/12/2025 6:12 AM EDT THROMBIN TIME Routine 08/12/2025 6:12 AM EDT PARTIAL THROMBOPLASTIN TIME (PTT) Routine 08/12/2025 6:12 AM EDT PROTIME-INR Routine 08/12/2025 6:12 AM EDT COMPREHENSIVE METABOLIC PANEL Routine 08/12/2025 6:12 AM EDT COMPLETE BLOOD COUNT, WITHOUT DIFFERENTIAL Routine 08/12/2025 6:12 AM EDT TYPE AND SCREEN Routine 08/11/2025 3:59 PM EDT ECG 12-LEAD Routine 08/11/2025 2:35 PM EDT MRI LUMBAR SPINE W W/O CONTRAST Routine 08/10/2025 2:17 AM EDT MRI THORACIC SPINE W W/O CONTRAST Routine 08/10/2025 2:16 AM EDT XR THORACIC SPINE 2 VIEWS Routine 08/09/2025 3:25 PM EDT BASIC METABOLIC PANEL Routine 08/09/2025 8:08 AM EDT COMPLETE BLOOD COUNT, WITHOUT DIFFERENTIAL Routine 08/09/2025 8:08 AM EDT HEPATITIS C VIRAL LOAD, QUANTITATIVE Routine 08/08/2025 8:12 PM EDT HEPATITIS C ANTIBODY REFLEX HCV RT-PCR, QUANT Routine 08/08/2025 8:12 PM EDT HIV 1/2 AG/AB CMIA REFLEX TO CONFIRMATION Routine 08/08/2025 8:12 PM EDT BLOOD CULTURE (HOSP LAB) Routine 08/08/2025 7:01 AM EDT BLOOD CULTURE (HOSP LAB) Routine 08/08/2025 7:00 AM EDT COMPREHENSIVE METABOLIC PANEL Routine 08/07/2025 10:25 PM EDT COMPLETE BLOOD COUNT, WITH DIFFERENTIAL Routine 08/07/2025 10:[address] SPINE ARCHIVE FOR REFERENCE ONLY Routine 08/06/2025 3:[address] HEAD ARCHIVE FOR REFERENCE ONLY Routine 08/06/2025 3:36 PM EDT MR HEAD ARCHIVE FOR REFERENCE ONLY Routine 08/06/2025 3:29 PM EDT MR SPINE ARCHIVE FOR REFERENCE ONLY Routine 08/06/2025 3:29 PM EDT MR HEAD ARCHIVE FOR REFERENCE ONLY Routine 08/06/2025 3:28 PM EDT from Last 3 Months Results * ANES INTUBATION (08/12/2025 2:06 PM EDT) Narrative Oseas Nunes MD - 08/12/2025 2:06 PM EDT Oseas Nunes MD 08/12/2025 2:15 PM Anesthesia Procedure Note - Elective intubation Patient Name: Norma Chiang : 1980 Patient location: [place] Procedure indications: airway protection Procedure diagnosis: Anesthesia Performed by: Anesthesiologist Oseas Nunes MD Chart Verification Airway: airway not difficult Preanesthetic Checklist monitors and equipment checked. Patient's pre-procedure mental status: awake The patient was sedated prior to procedure. Current level of sedation: general anesthesia Airway not difficult - NPO status: > 8 hours Procedure Details Intubation route: oral Intubation method: direct laryngoscopy Mac 3 Number of attempts: 1 Patient status for intubation: paralyzed Patient position: ramped Preoxygenation: BVM Tube size: 7.0 mm - cuffed Cricoid pressure applied Cord visualization: Grade I Placement confirmation method: chest rise and ETCO2 monitor Breath sounds: equal bilaterally ETT to lip: 22 cm Dentition: same as baseline Complications: no complications us Oseas Nunes MD [place] ANESTHESIA Edited Resul t - Final * Partial Thromboplastin Time (PTT) (08/12/2025 6:12 AM EDT) Anticoagulant OTHER AGENT OR UNKNOWN 08/11/2025 9:30 PM EDT [facility] Partial Thromboplastin Time (PTT) 29 25 - 36 seconds 08/12/2025 7:21 AM EDT [facility] Blood Blood specimen / Unknown 08/12/2025 6:12 AM EDT 08/12/2025 6:44 AM EDT Sachin AVILEZ-C LAB BLOOD ORDERABLES Final Re sult Performing Organization Address City/[facility] [place] [address], [place] [address] * Thrombin Time (08/12/2025 6:12 AM EDT) [facility] Signature Anticoagulant OTHER AGENT OR UNKNOWN 08/11/2025 9:30 PM EDT [facility] Thrombin Time 16.2 12.7 - 19.2 seconds 08/12/2025 7:21 AM EDT [facility] Blood Blood specimen / Unknown 08/12/2025 6:12 AM EDT 08/12/2025 6:44 AM EDT Sachin AVILEZ-C LAB BLOOD ORDERABLES Final Re sult Performing Organization Address City/[facility]/[place] [address], [place] [address] * Protime-INR (Early AM) (08/12/2025 6:12 AM EDT) [facility] Anticoagulant SUB Q UNFRACTIONATED HEPARIN 08/11/2025 9:30 PM EDT [facility] Prothrombin Time (PT) 11.7 10.0 - 13.5 seconds 08/12/2025 7:21 AM EDT [facility] INR 1.0 08/12/2025 7:21 AM EDT [facility] Comment:INR Therapeutic Rang es: Standard dose anticoagulant 2.0 to 3.0, High dose anticoagulant 2.5-3.5. Blood Blood specimen / Unknown 08/12/2025 6:12 AM EDT 08/12/2025 6:44 AM EDT Parvin Dye PA-C LAB BLOOD ORDERABLES Final Result Performing Organization Address [facility]/[place] [address], [place] [address] * (ABNORMAL) Fibrinogen Level (08/12/2025 6:12 AM EDT) Fibrinogen 462(H) 148 - 435 mg/dL 08/12/2025 7:21 AM T [facility] Blood Blood specimen / Unknown 08/12/2025 6:12 AM EDT 08/12/2025 6:44 AM EDT Sachin Evans PA-C LAB BLOOD ORDERABLES Final Re sult Performing Organization Address [facility] [place] [address], [place] [address] * (ABNORMAL) Complete Blood Count WITHOUT Differential - Early AM (08/12/2025 6:12 AM EDT) Only the most recent of2 resultswithin the time period is included. White Blood Cell Count 6.5 4.0 - 11.0 Thou/uL 08/12/2025 6:55 AM T [facility] Platelet Count 367 150 - 450 Thou/uL 08/12/2025 6:55 AM EDT [facility] Hemoglobin 9.7(L) 11.7 - 15.7 g/dL 08/12/2025 6:55 AM T [facility] Hematocrit 32.7(L) 35.0 - 47.0 % 08/12/2025 6:55 AM EDT [facility] Red Blood Cell Count 3.78(L) 4.00 - 5.40 Mil/uL 08/12/2025 6:55 AM EDT [facility] MCV 87 80 - 100 fL 08/12/2025 6:55 AM EDT [facility] MCH 25.7(L) 26.0 - 34.0 pg 08/12/2025 6:55 AM EDT [facility] MCHC 29.7(L) 30.0 - 36.0 g/dL 08/12/2025 6:55 AM EDT [facility] RDW 16.7(H) 11.5 - 14.5 % 08/12/2025 6:55 AM EDT [facility] MPV 8.5 7.5 - 12.5 fL 08/12/2025 6:55 AM EDT [facility] Blood Blood specimen / Unknown 08/12/2025 6:12 AM EDT 08/12/2025 6:44 AM EDT Parvin V. Daskal PA-C LAB BLOOD [place] [address], [address] [address] * BETA-HCG, QUALITATIVE (08/12/2025 6:12 AM EDT) Beta-hCG, Qualitative Negative Negative 08/12/2025 10:59 AM EDT [facility] 08/12/2025 6:12 AM EDT 08/12/2025 6:44 AM EDT Parvin V. Daskal PA-C LAB BLOOD [place] [address], [address] [address] * (ABNORMAL) Comprehensive Metabolic Panel (08/12/2025 6:12 AM EDT) Only the most recent of2 resultswithin the time period is included. Glucose 77 65 - 99 mg/dL 08/12/2025 7:18 AM [facility] Comment:Fasting: <100 mg/dL, Non-Fasting: <200 mg/dL (ADA 2004) Blood Urea Nitrogen (BUN) 24(H) 8 - 21 mg/dL 08/12/2025 7:18 AM [facility] Creatinine 0.56 0.40 - 1.10 mg/dL 08/12/2025 7:18 AM [facility] eGFR >90 >59 08/12/2025 7:18 AM [facility] Comment:CKD-EPI (2020) in mL /min/1.73 sq meters. Sodium 136 136 - 145 mmol/L 08/12/2025 7:18 AM [facility] Potassium 4.6 3.4 - 5.3 mmol/L 08/12/2025 7:18 AM [facility] Chloride 99 98 - 107 mmol/L 08/12/2025 7:18 AM [facility] CO2 26 22 - 33 mmol/L 08/12/2025 7:18 AM [facility] Calcium 9.2 8.7 - 10.5 mg/dL 08/12/2025 7:18 AM [facility] Alkaline Phosphatase 204(H) 32 - 122 U/L 08/12/2025 7:18 AM [facility] Aspartate Aminotrans (AST) 72(H) 10 - 50 U/L 08/12/2025 7:18 AM [facility] Alanine Aminotrans (ALT) 42 10 - 50 U/L 08/12/2025 7:18 AM [facility] Bilirubin, Total 0.2 0.2 - 1.0 mg/dL 08/12/2025 7:18 AM [facility] Protein, Total 8.9(H) 6.3 - 8.3 g/dL 08/12/2025 7:18 AM [facility] Albumin 3.0(L) 3.5 - 5.0 g/dL 08/12/2025 7:18 AM [facility] BUN/Creatinine Ratio 43(H) 10.0 - 25.0 Ratio 08/12/2025 7:18 AM [facility] Globulin 5.9(H) 1.5 - 3.9 g/dL 08/12/2025 7:18 AM [facility] Albumin/Globulin Ratio 0.5(L) 1.0 - 3.0 Ratio 08/12/2025 7:18 AM EDT [facility] Anion Gap 11 7 - 17 08/12/2025 7:18 AM EDT [facility] Blood Blood specimen / Unknown 08/12/2025 6:12 AM EDT 08/12/2025 6:44 AM EDT Parvin Dye PA-C LAB BLOOD ORDERABLES Final Result Performing Organization Address City/[facility]/ZIP Co de Phone Number [address] [address], [place] [address] * Type and Screen (08/11/2025 3:59 PM EDT) ABO/Rh AB POSITIVE 08/11/2025 5:09 PM EDT [facility] Antibody Screen NEGATIVE 08/11/2025 4:58 PM EDT [facility] Specimen Expiration 08/14/2025 08/11/2025 4:58 PM EDT [facility] Blood Blood specimen / Unknown 08/11/2025 3:59 PM EDT 08/11/2025 4:18 PM EDT Sachin Evans PA-C BLOOD BANK TEST ORDERABLES Fi nal Result Performing Organization Address [facility]/[place] [address], [address] [address] * ECG 12 lead (08/11/2025 2:35 PM EDT) Ventricular rate 55 BPM EKG [facility] Atrial rate 55 BPM EKG [facility] P-R interval 90 ms EKG [facility] QRS duration 118 ms EKG [facility] Q-T interval 504 ms EKG [facility] QTC calculation (Bazett) 483 ms EKG [facility] P axis 40 degrees EKG [facility] R axis 25 degrees EKG [facility] T axis 34 degrees EKG [facility] 08/11/2025 2:35 PM EDT Narrative EKG [facility] - 08/11/2025 7:19 PM EDT Sinus bradycardia with short NV Non-specific intra-ventricular conduction delay Nonspecific ST abnormality Prolonged QT Abnormal ECG When compared with ECG of 17-Dec-2023 11:57, No significant change was found Confirmed by MD Ku Ahmed ([id number]) on 08/11/2025 7:19:18 PM Procedure Note Amadeo Ku MD - 08/11/2025 Sinus bradycardia with short NV Non-specific intra-ventricular conduction delay Nonspecific ST abnormality Prolonged QT Abnormal ECG When compared with ECG of 17-Dec-2023 11:57, No significant change was found Confirmed by MD Ku Ahmed ([id number]) on 08/11/2025 7:19:18 PM Sachin Evans PA-C ECG ORDERABLES Final Result EKG [facility] * MRI Lumbar spine w w/o contrast (08/10/2025 2:17 AM EDT) Anatomical Region Laterality Modality L-spine Magnetic Resonan ce 08/10/2025 1:20 AM EDT Impressions 08/10/2025 8:25 AM EDT 1. There is a new superior endplate fracture of T12 with loss of approximately 25% of vertebral body height. 2. There is complete loss of the marrow signal at the T6 with erosive changes in the inferior endplate. The T7 vertebral body is again completely eroded and/or partially resected. 3. There is STIR signal abnormality throughout the T3 level. This is seen to lesser extent at T4 and T5. Findings are presumably related in part to failed fat suppression in the setting of the hardware, however infection cannot the same appearance. Similar findings are noted at T10 and T11. 4. No acute abnormality seen in the lumbar spine. 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 IV contrast was administered per hospital protocol COMPARISON: None. THORACIC SPINE: There are bilateral rods with fixation hardware extending from the T3-T11 levels. There is extensive artifact caused by the hardware limiting evaluation of the adjacent structures. There is STIR signal abnormality throughout the T3 level. This is seen to lesser extent at T4 and T5. Findings are presumably related in part to failed fat suppression in the setting of the hardware, however infection cannot the same appearance. Similar findings are noted at T10 and T11. There is a new superior endplate fracture of T12 with loss of approximately 25% of vertebral body height. There is height loss at the T5 level which appears roughly similar to CT of the thoracic spine from November 24, 2023. There is complete loss of the marrow signal at the T6 with erosive changes in the inferior endplate. The T7 vertebral body is again completely eroded and are partially resected. There is exaggeration of the usual thoracic kyphosis. Postoperative changes are seen in the paraspinal soft tissues. The spinal cord is largely obscured in the area of the hardware. No obvious abnormality is seen elsewhere. : LUMBAR SPINE: Alignment: Normal lumbar lordosis. Vertebral body heights: Vertebral body heights are maintained. Bones and Marrow: No suspicious bone marrow signal abnormality. Disc height and signal: There is mild degenerative disc desiccation Conus/Intrathecal: The distal cord is normal in size and signal characteristics. The cord terminates at L1-L2. There is no abnormal enhancement of the nerve roots. Paraspinous Soft Tissues: Unremarkable. Disc levels: L1-L2:There is no significant spinal canal or neural foraminal stenosis. L2-L3:There is no significant spinal canal or neural foraminal stenosis. L3-L4:There is a small disc bulge narrowing the subarticular recesses bilaterally. There is otherwise no significant spinal canal stenosis. There is mild neural foraminal narrowing. L4-L5:There is a small disc bulge and facet arthropathy. There is narrowing of the subarticular recesses bilaterally but otherwise no significant spinal canal stenosis. There is mild neural foraminal narrowing. L5-S1:There is a small disc bulge and facet arthropathy. There is no significant spinal canal stenosis. There is left foraminal extension of the disc bulge and minimal neural foraminal narrowing. 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 IV contrast was administered per hospital protocol COMPARISON: None. THORACIC SPINE: There are bilateral rods with fixation hardware extending from the T3-T11 levels. There is extensive artifact caused by the hardware limiting evaluation of the adjacent structures. There is STIR signal abnormality throughout the T3 level. This is seen to lesser extent at T4 and T5. Findings are presumably related in part to failed fat suppression in the setting of the hardware, however infection cannot the same appearance. Similar findings are noted at T10 and T11. There is a new superior endplate fracture of T12 with loss of approximately 25% of vertebral body height. There is height loss at the T5 level which appears roughly similar to CT of the thoracic spine from November 24, 2023. There is complete loss of the marrow signal at the T6 with erosive changes in the inferior endplate. The T7 vertebral body is again completely eroded and are partially resected. There is exaggeration of the usual thoracic kyphosis. Postoperative changes are seen in the paraspinal soft tissues. The spinal cord is largely obscured in the area of the hardware. No obvious abnormality is seen elsewhere. : LUMBAR SPINE: Alignment: Normal lumbar lordosis. Vertebral body heights: Vertebral body heights are maintained. Bones and Marrow: No suspicious bone marrow signal abnormality. Disc height and signal: There is mild degenerative disc desiccation Conus/Intrathecal: The distal cord is normal in size and signal characteristics. The cord terminates at L1-L2. There is no abnormal enhancement of the nerve roots. Paraspinous Soft Tissues: Unremarkable. Disc levels: L1-L2:There is no significant spinal canal or neural foraminal stenosis. L2-L3:There is no significant spinal canal or neural foraminal stenosis. L3-L4:There is a small disc bulge narrowing the subarticular recesses bilaterally. There is otherwise no significant spinal canal stenosis. There is mild neural foraminal narrowing. L4-L5:There is a small disc bulge and facet arthropathy. There is narrowing of the subarticular recesses bilaterally but otherwise no significant spinal canal stenosis. There is mild neural foraminal narrowing. L5-S1:There is a small disc bulge and facet arthropathy. There is no significant spinal canal stenosis. There is left foraminal extension of the disc bulge and minimal neural foraminal narrowing. IMPRESSION: 1. There is a new superior endplate fracture of T12 with loss of approximately 25% of vertebral body height. 2. There is complete loss of the marrow signal at the T6 with erosive changes in the inferior endplate. The T7 vertebral body is again completely eroded and/or partially resected. 3. There is STIR signal abnormality throughout the T3 level. This is seen to lesser extent at T4 and T5. Findings are presumably related in part to failed fat suppression in the setting of the hardware, however infection cannot the same appearance. Similar findings are noted at T10 and T11. 4. No acute abnormality seen in the lumbar spine. Parvin Israel MD [facility] MRI ORDERABLES Final Result * MRI Thoracic spine w w/o contrast (08/10/2025 2:16 AM EDT) Anatomical Region Laterality Modality T-spine Magnetic Resonan ce 08/10/2025 1:19 AM EDT Impressions 08/10/2025 8:25 AM EDT 1. There is a new superior endplate fracture of T12 with loss of approximately 25% of vertebral body height. 2. There is complete loss of the marrow signal at the T6 with erosive changes in the inferior endplate. The T7 vertebral body is again completely eroded and/or partially resected. 3. There is STIR signal abnormality throughout the T3 level. This is seen to lesser extent at T4 and T5. Findings are presumably related in part to failed fat suppression in the setting of the hardware, however infection cannot the same appearance. Similar findings are noted at T10 and T11. 4. No acute abnormality seen in the lumbar spine. 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 IV contrast was administered per hospital protocol COMPARISON: None. THORACIC SPINE: There are bilateral rods with fixation hardware extending from the T3-T11 levels. There is extensive artifact caused by the hardware limiting evaluation of the adjacent structures. There is STIR signal abnormality throughout the T3 level. This is seen to lesser extent at T4 and T5. Findings are presumably related in part to failed fat suppression in the setting of the hardware, however infection cannot the same appearance. Similar findings are noted at T10 and T11. There is a new superior endplate fracture of T12 with loss of approximately 25% of vertebral body height. There is height loss at the T5 level which appears roughly similar to CT of the thoracic spine from November 24, 2023. There is complete loss of the marrow signal at the T6 with erosive changes in the inferior endplate. The T7 vertebral body is again completely eroded and are partially resected. There is exaggeration of the usual thoracic kyphosis. Postoperative changes are seen in the paraspinal soft tissues. The spinal cord is largely obscured in the area of the hardware. No obvious abnormality is seen elsewhere. : LUMBAR SPINE: Alignment: Normal lumbar lordosis. Vertebral body heights: Vertebral body heights are maintained. Bones and Marrow: No suspicious bone marrow signal abnormality. Disc height and signal: There is mild degenerative disc desiccation Conus/Intrathecal: The distal cord is normal in size and signal characteristics. The cord terminates at L1-L2. There is no abnormal enhancement of the nerve roots. Paraspinous Soft Tissues: Unremarkable. Disc levels: L1-L2:There is no significant spinal canal or neural foraminal stenosis. L2-L3:There is no significant spinal canal or neural foraminal stenosis. L3-L4:There is a small disc bulge narrowing the subarticular recesses bilaterally. There is otherwise no significant spinal canal stenosis. There is mild neural foraminal narrowing. L4-L5:There is a small disc bulge and facet arthropathy. There is narrowing of the subarticular recesses bilaterally but otherwise no significant spinal canal stenosis. There is mild neural foraminal narrowing. L5-S1:There is a small disc bulge and facet arthropathy. There is no significant spinal canal stenosis. There is left foraminal extension of the disc bulge and minimal neural foraminal narrowing. 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 IV contrast was administered per hospital protocol COMPARISON: None. THORACIC SPINE: There are bilateral rods with fixation hardware extending from the T3-T11 levels. There is extensive artifact caused by the hardware limiting evaluation of the adjacent structures. There is STIR signal abnormality throughout the T3 level. This is seen to lesser extent at T4 and T5. Findings are presumably related in part to failed fat suppression in the setting of the hardware, however infection cannot the same appearance. Similar findings are noted at T10 and T11. There is a new superior endplate fracture of T12 with loss of approximately 25% of vertebral body height. There is height loss at the T5 level which appears roughly similar to CT of the thoracic spine from November 24, 2023. There is complete loss of the marrow signal at the T6 with erosive changes in the inferior endplate. The T7 vertebral body is again completely eroded and are partially resected. There is exaggeration of the usual thoracic kyphosis. Postoperative changes are seen in the paraspinal soft tissues. The spinal cord is largely obscured in the area of the hardware. No obvious abnormality is seen elsewhere. : LUMBAR SPINE: Alignment: Normal lumbar lordosis. Vertebral body heights: Vertebral body heights are maintained. Bones and Marrow: No suspicious bone marrow signal abnormality. Disc height and signal: There is mild degenerative disc desiccation Conus/Intrathecal: The distal cord is normal in size and signal characteristics. The cord terminates at L1-L2. There is no abnormal enhancement of the nerve roots. Paraspinous Soft Tissues: Unremarkable. Disc levels: L1-L2:There is no significant spinal canal or neural foraminal stenosis. L2-L3:There is no significant spinal canal or neural foraminal stenosis. L3-L4:There is a small disc bulge narrowing the subarticular recesses bilaterally. There is otherwise no significant spinal canal stenosis. There is mild neural foraminal narrowing. L4-L5:There is a small disc bulge and facet arthropathy. There is narrowing of the subarticular recesses bilaterally but otherwise no significant spinal canal stenosis. There is mild neural foraminal narrowing. L5-S1:There is a small disc bulge and facet arthropathy. There is no significant spinal canal stenosis. There is left foraminal extension of the disc bulge and minimal neural foraminal narrowing. IMPRESSION: 1. There is a new superior endplate fracture of T12 with loss of approximately 25% of vertebral body height. 2. There is complete loss of the marrow signal at the T6 with erosive changes in the inferior endplate. The T7 vertebral body is again completely eroded and/or partially resected. 3. There is STIR signal abnormality throughout the T3 level. This is seen to lesser extent at T4 and T5. Findings are presumably related in part to failed fat suppression in the setting of the hardware, however infection cannot the same appearance. Similar findings are noted at T10 and T11. 4. No acute abnormality seen in the lumbar spine. us Parvin Israel MD G MRI ORDERABLES Final Result * XR Thoracic spine 2 views (08/09/2025 3:25 PM EDT) Anatomical Region Laterality Modality T-spine Computed Radiogr aphy 08/09/2025 3:05 PM EDT Impressions 08/10/2025 11:43 AM EDT 1. Stable appearance of the dorsal spine compared with prior CT postoperative examination examinations. 2. Stable anterior wedge compression fracture of the T12 vertebral body with kyphosis. 3. Fragmentation of the C7 vertebral body seen better on prior CT examination is not well appreciated on this x-ray series. Narrative 08/10/2025 11:43 AM EDT EXAMINATION: XR THORACIC SPINE CLINICAL INFORMATION: s/p T3-11 fusion with new T12 compression fx/kyphsosis COMPARISON: CT scan of the dorsal spine June 2025 and x-rays of the dorsal spine December 2023 TECHNIQUE: Two views of the thoracic spine were obtained. FINDINGS: Redemonstration of the posterior spinal fusion instrumentation/hardware throughout the dorsal spine unchanged compared to prior. Hardware intact Persistent anterior wedge compression fracture of the T12 vertebral body with kyphosis overall Fragmentation C7 vertebral bodies seen better on prior CT examination is not well appreciated on this x-ray series. New abnormalities. unchanged. Procedure Note Javier Strickland MD - 08/10/2025 EXAMINATION: XR THORACIC SPINE CLINICAL INFORMATION: s/p T3-11 fusion with new T12 compression fx/kyphsosis COMPARISON: CT scan of the dorsal spine June 2025 and x-rays of the dorsal spine December 2023 TECHNIQUE: Two views of the thoracic spine were obtained. FINDINGS: Redemonstration of the posterior spinal fusion instrumentation/hardware throughout the dorsal spine unchanged compared to prior. Hardware intact Persistent anterior wedge compression fracture of the T12 vertebral body with kyphosis overall Fragmentation C7 vertebral bodies seen better on prior CT examination is not well appreciated on this x-ray series. New abnormalities. unchanged. IMPRESSION: 1. Stable appearance of the dorsal spine compared with prior CT postoperative examination examinations. 2. Stable anterior wedge compression fracture of the T12 vertebral body with kyphosis. 3. Fragmentation of the C7 vertebral body seen better on prior CT examination is not well appreciated on this x-ray series. Arron Watters MD [facility] Final Result * (ABNORMAL) Basic Metabolic Panel (Early AM) (08/09/2025 8:08 AM EDT) Glucose 105(H) 65 - 99 mg/dL 08/09/2025 9:13 AM [facility] Comment:Fasting: <100 mg/dL, Non-Fasting: <200 mg/dL (ADA 2005) Blood Urea Nitrogen (BUN) 16 8 - 21 mg/dL 08/09/2025 9:13 AM [facility] Creatinine 0.5 0.4 - 1.1 mg/dL 08/09/2025 9:13 AM [facility] eGFR >90 >59 08/09/2025 9:13 AM [facility] Comment:CKD-EPI (2020) in mL /min/1.73 sq meters. Sodium 136 136 - 145 mmol/L 08/09/2025 9:13 AM [facility] Potassium 4.3 3.4 - 5.3 mmol/L 08/09/2025 9:13 AM [facility] Chloride 97(L) 98 - 107 mmol/L 08/09/2025 9:13 AM EDT [facility] CO2 28 22 - 33 mmol/L 08/09/2025 9:13 AM EDT [facility] Anion Gap 11 7 - 17 08/09/2025 9:13 AM T [facility] Calcium 9.1 8.7 - 10.5 mg/dL 08/09/2025 9:13 AM T [facility] BUN/Creatinine Ratio 32(H) 10.0 - 25.0 Ratio 08/09/2025 9:13 AM EDT [facility] Blood Blood specimen / Unknown 08/09/2025 8:08 AM EDT 08/09/2025 8:36 AM EDT Polly Avendano MD LAB BLOOD ORDERABLES Final Re sult Performing Organization Address City/[facility]/ZIP Co de Phone Number [address] [address], [address] [address] * (ABNORMAL) Hepatitis C Viral Load, Quantitative (08/08/2025 8:12 PM EDT) HCV RNA (IU/mL) 422,887(H) <10 IU/mL 9:56 AM [facility] HCV RNA (log10) 5.63(H) <1.00 log10 IU/mL 08/12/2025 9:56 AM [facility] Interpretation Detected 08/12/2025 9:56 AM T [facility] Comment:Performed by FDA jolene roved [facility] Aptima TMA. Linear range is 10 to 100,000,000 IU/mL. HCV Genotyping is not recommended for viral loads below 300 IU/mL. 08/08/2025 8:12 PM EDT 08/08/2025 8:31 PM EDT Comment:Plasma/Serum~Plasma Polly Avendano MD LAB BLOOD ORDERABLES Final Re sult [facility] [address] [place] [address], * (ABNORMAL) Hepatitis C Antibody reflex HCV RT-PCR, Quant (08/08/2025 8:12 PM EDT) Hepatitis C Antibody Reactive( A) Nonreactive 08/09/2025 12:08 PM EDT [facility] Comment:Presumptive evidence of antibodies to HCV. Hepatitis C Viral Load, Quantitative results to follow. Blood Blood specimen / Unknown 08/08/2025 8:12 PM EDT 08/08/2025 8:31 PM EDT Comment:Plasma/Serum~Plasma Polly Avendano MD LAB BLOOD ORDERABLES Final Re sult [facility] [address] [place] [address], * HIV 1/2 Ag/Ab CMIA Reflex to Confirmation (08/08/2025 8:12 PM EDT) HIV 1/2 Ag/Ab CMIA Nonreactive Nonreactive 08/09/2025 12:08 PM EDT [facility] Comment: Results show no evidence of infection by HIV 1/2. If clinically indicated, repeat CMIA or test by nucleic acid amplification. HIV 1/2 Antigen/Antibody CMIA reflex to confirmation AND HIV-1 RNA viral load recommended in patients who are taking or have recently taken PrEP. Blood Blood specimen / Unknown 08/08/2025 8:12 PM EDT 08/08/2025 8:31 PM EDT Polly Avendano MD LAB BLOOD ORDERABLES Final Re sult [facility] [address] [place] [address], * Blood Culture (08/08/2025 7:01 AM EDT) Only the most recent of2 resultswithin the time period is included. Culture Sterile after 5 days 08/13/2025 7:33 AM EDT [facility] Blood Blood specimen / Unknown 08/08/2025 7:01 AM EDT 08/08/2025 7:41 AM EDT Comment:Blood us Parvin Israel MD LAB BLOOD ORDERABLES Final Resul t [facility] [address] [place] [address], [place] * (ABNORMAL) Complete Blood Count, WITH Differential (routine) (08/07/2025 10:25 PM EDT) White Blood Cell Count 7.0 4.0 - 11.0 Thou/uL 08/07/2025 11:19 PM [facility] Platelet Count 400 150 - 450 Thou/uL 08/07/2025 11:19 PM [facility] Hemoglobin 9.4(L) 11.7 - 15.7 g/dL 08/07/2025 11:19 PM [facility] Hematocrit 32.8(L) 35.0 - 47.0 % 08/07/2025 11:19 PM [facility] Red Blood Cell Count 3.76(L) 4.00 - 5.40 Mil/uL 08/07/2025 11:19 PM [facility] MCV 87 80 - 100 fL 08/07/2025 11:19 PM [facility] MCH 25.0(L) 26.0 - 34.0 pg 08/07/2025 11:19 PM [facility] MCHC 28.7(L) 30.0 - 36.0 g/dL 08/07/2025 11:19 PM [facility] RDW 15.7(H) 11.5 - 14.5 % 08/07/2025 11:19 PM [facility] MPV 8.3 7.5 - 12.5 fL 08/07/2025 11:19 PM [facility] Neutrophils Auto 63.8 % 08/07/20 11:19 PM [facility] Immature Granulocytes 1.7 % 08/07/2025 11:19 PM [facility] Lymphocytes Auto 26.6 % 08/07/20 11:19 PM [facility] Monocytes Auto 6.0 % 08/07/2025 11:19 PM EDT [facility] Eosinophils Auto 1.3 % 08/07/20 11:19 PM EDT [facility] Basophils Auto 0.6 % [facility] Neutrophils Auto 4.45 2.00 - 7.50 Thou/uL 08/07/2025 11:19 PM EDT [facility] Abs Immature Granulocytes 0.12(H) 0.00 - 0.10 Thou/uL 08/07/2025 11:19 PM EDT [facility] Abs Lymphocytes Auto 1.86 1.50 - 4.50 Thou/uL 08/07/2025 11:19 PM EDT [facility] Abs Monocytes Auto 0.42 0.20 - 1.50 Thou/uL 08/07/2025 11:19 PM EDT [facility] Abs Eosinophils Auto 0.09 0.00 - 0.70 Thou/uL 08/07/2025 11:19 PM T [facility] Abs Basophils Auto 0.04 0.00 - 0.20 Thou/uL 08/07/2025 11:19 PM T [facility] Blood Blood specimen / Unknown 08/07/2025 10:25 PM EDT 08/07/2025 10:58 PM EDT Parvin Israel MD LAB BLOOD ORDERABLES Final Resul t Performing Organization Address [facility] de Phone Number [address] [address], [address] [address] * CT Spine Archive for Reference Only (08/06/2025 3:37 PM EDT) Narrative [place] - 08/06/2025 3:37 PM EDT This study has been auto finalized and does not contain a result. us File Room Provider IMG DIGITIZE FILMS Final Resu lt Performing Organization Address City/[facility]/ZIP Co de Phone Number [place] [phone] * CT Head Archive for Reference Only (08/06/2025 3:36 PM EDT) [facility] 08/06/2025 3:36 PM EDT This study has been auto finalized and does not contain a result. us File Room Provider IMG DIGITIZE FILMS Final Resu lt Performing Organization Address [facility] de Phone Number [place] [phone] * MR Spine Archive for Reference Only (08/06/2025 3:29 PM EDT) [facility] 08/06/2025 3:29 PM EDT This study has been auto finalized and does not contain a result. us File Room Provider IMG DIGITIZE FILMS Final Resu lt Performing Organization Address [facility] de Phone Number [place] [phone] * MR Head Archive for Reference Only (08/06/2025 3:29 PM EDT) Only the most recent of2 resultswithin the time period is included. [facility] 08/06/2025 3:29 PM EDT This study has been auto finalized and does not contain a result. 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
--- OUTSIDE RECORDS SUMMARY | 2025-09-14 21:50 | XMS_ITS | Clinical Summary ---
Author Organization [employer] Address [address] 7 [place] [address] Care Team Providers Care Counter Weigher Name Role Phone Barbara Cardoso MD Primary Care Provider Immunizations Immunization Administration Dates Next Due Pfizer [...] 3-dose series) 01/30/2017 09/06/2016, 08/02/2016 Mammogram 2022 DTaP/Tdap/Td Vaccines (4 - T d or Tdap) 05/03/2025 05/03/2015, 11/25/2013, 05/31/2011 COVID-19 Vaccine (3 - 2024-2 6 season) 2025 01/17/2023, 07/19/2021 Influenza Vaccine (#1) 2025 Zoster Vaccines (1 [...] to complete this topic Insurance Care Teams Counter Weigher Relationship Specialty Start Date End Date Barbara Cardoso MD [address] [place] [id number] PCP - General Family Medicine 02/25/24
--- OUTSIDE RECORDS SUMMARY | 2025-09-14 21:50 | XMS_ITS ---
Author Name [facility] Organization Unknown Results Test Name/Text Value Interpretation Date Range Source B-HCG Preg SerPl Ql Negative 08/12/2025 - H[facility]CT TT imm Bovine Thrombin PPP 16.2 seconds 08/12/2025 12.7 - 19.2 HHCCT Anticoagulant OTHER AGENT OR UNKNOWN 08/12/2025 H[facility]CT aPTT PPP 29.0 seconds 08/12/2025 25 - 36 H[facility]CT Anticoagulant OTHER AGENT OR UNKNOWN 08/12/2025 HHCCT Prothrombin time 11.7 seconds 08/12/2025 10 - 13.5 HHCCT INR PPP 1.0 08/12/2025 HHCCT Anticoagulant SUB Q UNFRACTIONATED HEPARIN 08/12/2025 HHCCT Fibrinogen PPP-mCnc 462.0 mg/dL Above high normal 08/12/2025 148 - 435 HHCCT BUN/Creat SerPl 43.0 Ratio Above high normal 08/12/2025 10 - 25 HHCCT Chloride SerPl-sCnc 99.0 mmol/L 08/12/2025 98 - 10 7 HHCCT Prot SerPl-mCnc 8.9 g/dL Above high normal 08/12/2025 6.3 - 8.3 HHCCT ALT SerPl-cCnc 42.0 U/L 08/12/2025 10 - 50 HHCC T Creat SerPl-mCnc 0.56 mg/dL 08/12/2025 0.4 - 1.1 H HCCT GFR/BSA.pred SerPlBld DOT-[id number]-[id number] >90.0 08/12/2025 59 - HHCCT Anion Gap Bld-sCnc 11.0 08/12/2025 7 - 17 HHCCT Glucose SerPl-mCnc 77.0 mg/dL 08/12/2025 65 - 99 HHCCT Calcium SerPl-mCnc 9.2 mg/dL 08/12/2025 8.7 - 10.5 HHCCT Albumin SerPl-mCnc 3.0 g/dL Below low normal 08/12/2025 3.5 - 5 HHCCT CO2 SerPl-sCnc 26.0 mmol/L 08/12/2025 22 - 33 HH CCT BUN SerPl-mCnc 24.0 mg/dL Above high normal 08/12/2025 8 - 2 1 HHCCT AST SerPl-cCnc 72.0 U/L Above high normal 08/12/2025 10 - 5 0 HHCCT Bilirub SerPl-mCnc 0.2 mg/dL 08/12/2025 0.2 - 1 HHCCT Potassium SerPl-sCnc 4.6 mmol/L 08/12/2025 3.4 - 5.3 HHCCT Sodium SerPl-sCnc 136.0 mmol/L 08/12/2025 136 - 14 5 HHCCT ALP SerPl-cCnc 204.0 U/L Above high normal 08/12/2025 32 - 1 22 HHCCT Albumin/Glob SerPl 0.5 Ratio Below low normal 08/12/2025 1 - 3 HHCCT Globulin Ser Calc-mCnc 5.9 g/dL Above high normal 08/12/2025 1.5 - 3.9 HHCCT MCH RBC Qn Auto 25.7 pg Below low normal 08/12/2025 26 - 3 4 HHCCT MCHC RBC Auto-mCnc 29.7 g/dL Below low normal 08/12/2025 30 - 36 HHCCT Hgb Bld-mCnc 9.7 g/dL Below low normal 08/12/2025 11.7 - 15 .7 HHCCT Hct VFr Bld Auto 32.7 % Below low normal 08/12/2025 35 - 47 HHCCT MCV RBC Auto 87.0 fL 08/12/2025 80 - 100 HHCCT PMV Bld Auto 8.5 fL 08/12/2025 7.5 - 12.5 HHCCT RDW RBC Auto-Rto 16.7 % Above high normal 08/12/2025 11.5 - 14.5 HHCCT RBC num Bld Auto 3.78 Mil/uL Below low normal 08/12/2025 4 - 5.4 HHCCT Platelet num Bld Auto 367.0 Thou/uL 08/12/2025 150 - 450 HHCCT WBC num Bld Auto 6.5 Thou/uL 08/12/2025 4 - 11 HHCCT MCHC RBC Auto-mCnc 29.5 g/dL Below low normal 08/09/2025 30 - 36 HHCCT Hct VFr Bld Auto 33.2 % Below low normal 08/09/2025 35 - 47 HHCCT PMV Bld Auto 8.7 fL 08/09/2025 7.5 - 12.5 HHCCT MCV RBC Auto 87.0 fL 08/09/2025 80 - 100 HHCCT MCH RBC Qn Auto 25.5 pg Below low normal 08/09/2025 26 - 3 4 HHCCT RBC num Bld Auto 3.84 Mil/uL Below low normal 08/09/2025 4 - 5.4 HHCCT Platelet num Bld Auto 401.0 Thou/uL 08/09/2025 150 - 450 HHCCT Hgb Bld-mCnc 9.8 g/dL Below low normal 08/09/2025 11.7 - 15 .7 HHCCT WBC num Bld Auto 8.6 Thou/uL 08/09/2025 4 - 11 HHCCT RDW RBC Auto-Rto 16.3 % Above high normal 08/09/2025 11.5 - 14.5 HHCCT Creat SerPl-mCnc 0.5 mg/dL 08/09/2025 0.4 - 1.1 HH CCT Anion Gap Bld-sCnc 11.0 08/09/2025 7 - 17 HHCCT Sodium SerPl-sCnc 136.0 mmol/L 08/09/2025 136 - 14 5 HHCCT GFR/BSA.pred SerPlBld [id number] >90.0 08/09/2025 59 - HHCCT BUN SerPl-mCnc 16.0 mg/dL 08/09/2025 8 - [address] Potassium SerPl-sCnc 4.3 mmol/L 08/09/2025 3.4 - 5.3 HHCCT CO2 SerPl-sCnc 28.0 mmol/L 08/09/2025 22 - 33 HH CCT BUN/Creat SerPl 32.0 Ratio Above high normal 08/09/2025 10 - 25 HHCCT Chloride SerPl-sCnc 97.0 mmol/L Below low normal 08/09/2025 98 - 107 HHCCT Calcium SerPl-mCnc 9.1 mg/dL 08/09/2025 8.7 - 10.5 HHCCT Glucose SerPl-mCnc 105.0 mg/dL Above high normal 08/09/2025 65 - 99 HHCCT Hepatitis C virus Ab [Presence] in Serum or Plasma by Immunoassay Reactive Abnormal 08/09/2025 - HHCCT HIV 1+2 Ab+HIV1 p24 Ag Ser EIA-aCnc Nonreactive 08/09/2025 - HHCCT Albumin/Glob SerPl 0.5 Ratio Below low normal 08/08/2025 1 - 3 HHCCT ALP SerPl-cCnc 115.0 U/L 08/08/2025 32 - 122 HH[facility] T Sodium SerPl-sCnc 137.0 mmol/L 08/08/2025 136 - 14 5 HHCCT Potassium SerPl-sCnc 4.2 mmol/L 08/08/2025 3.4 - 5.3 HHCCT Chloride SerPl-sCnc 99.0 mmol/L 08/08/2025 98 - 10 7 HHCCT Glucose SerPl-mCnc 110.0 mg/dL Above high normal 08/08/2025 65 - 99 HHCCT Bilirub SerPl-mCnc 0.2 mg/dL 08/08/2025 0.2 - 1 HHCCT BUN SerPl-mCnc 11.0 mg/dL 08/08/2025 8 - [address] Globulin Ser Calc-mCnc 5.7 g/dL Above high normal 08/08/2025 1.5 - 3.9 HHCCT CO2 SerPl-sCnc 28.0 mmol/L 08/08/2025 22 - 33 HH CCT Calcium SerPl-mCnc 8.9 mg/dL 08/08/2025 8.7 - 10.5 HHCCT Albumin SerPl-mCnc 2.7 g/dL Below low normal 08/08/2025 3.5 - 5 HHCCT Anion Gap Bld-sCnc 10.0 08/08/2025 7 - 17 HHCCT ALT SerPl-cCnc 19.0 U/L 08/08/2025 10 - 50 HH[facility] T GFR/BSA.pred SerPlBld SRJ-UFR-BxCOco >90.0 08/08/2025 59 - HHCCT Prot SerPl-mCnc 8.4 g/dL Above high normal 08/08/2025 6.3 - 8.3 HHCCT AST SerPl-cCnc 29.0 U/L 08/08/2025 10 - 50 HHCC T Creat SerPl-mCnc 0.6 mg/dL 08/08/2025 0.4 - 1.1 HH CCT BUN/Creat SerPl 18.0 Ratio 08/08/2025 10 - 25 HH CCT MCV RBC Auto 87.0 fL 08/08/2025 80 - 100 HHCCT RBC num Bld Auto 3.76 Mil/uL Below low normal 08/08/2025 4 - 5.4 HHCCT RDW RBC Auto-Rto 15.7 % Above high normal 08/08/2025 11.5 - 14.5 HHCCT Eosinophil/leuk NFr Bld Auto 1.3 % 08/08/2025 HHCCT PMV Bld Auto 8.3 fL 08/08/2025 7.5 - 12.5 HHCCT Hct VFr Bld Auto 32.8 % Below low normal 08/08/2025 35 - 47 HHCCT Basophils/leuk NFr Bld Auto 0.6 % 08/08/2025 HHCCT Lymphocytes/leuk NFr Bld Auto 26.6 % 08/08/2025 HHCCT Platelet num Bld Auto 400.0 Thou/uL 08/08/2025 150 - 450 HHCCT Neutrophils num Bld Auto 4.45 Thou/uL 08/08/2025 2 - 7.5 HHCCT Monocytes num Bld Auto 0.42 Thou/uL 08/08/2025 0.2 - 1.5 HHCCT MCH RBC Qn Auto 25.0 pg Below low normal 08/08/2025 26 - 3 4 HHCCT MCHC RBC Auto-mCnc 28.7 g/dL Below low normal 08/08/2025 30 - 36 HHCCT Lymphocytes num Bld Auto 1.86 Thou/uL 08/08/2025 1.5 - 4.5 HHCCT Imm Granulocytes/leuk NFr Bld Auto 1.7 % 08/08/2025 HHCCT Eosinophil num Bld Auto 0.09 Thou/uL 08/08/2025 0 - 0.7 HHCCT Imm Granulocytes num Bld Auto 0.12 Thou/uL Above high normal 08/08/2025 0 - 0.1 HHCCT Hgb Bld-mCnc 9.4 g/dL Below low normal 08/08/2025 11.7 - 15 .7 HHCCT Monocytes/leuk NFr Bld Auto 6.0 % 08/08/2025 HHCCT WBC num Bld Auto 7.0 Thou/uL 08/08/2025 4 - 11 HHCCT Basophils num Bld Auto 0.04 Thou/uL 08/08/2025 0 - 0.2 HHCCT Neutrophils/leuk NFr Bld Auto 63.8 % 08/08/2025 HHCCT History of Medication Use Medication Directions Dispensed Refills Start Date End Date Status methadone (DOLOPHINE) 5 MG tablet Take 27 tablets (135 mg total) by mouth daily. Max Daily Amount: 135 mg 5 active thiamine mononitrate (VITAMIN B-1) 100 MG tablet Take 1 tablet (100 mg total) by mouth daily. 5 active acetaminophen (TYLENOL) 325 MG tablet Take 3 tablets (975 mg total) by mouth every 8 (eight) hours around the clock. 5 active baclofen (LIORESAL) 10 MG tablet Take 1 tablet (10 mg total) by mouth 3 (three) times a day. 5 active cefadroxil (DURICEF) 500 mg capsule Take 2 capsules (1,000 mg total) by mouth 2 (two) times a day. 5 active lidocaine (LIDODERM) 5 % patch Place 1 patch on the skin daily. Apply patch and leave on for 12 hours then remove. Patch may remain on skin for 12 hours per day. 5 active pregabalin (LYRICA) 50 MG capsule Take 1 capsule (50 mg total) by mouth 3 (three) times a day. 5 active folic acid (FOLVITE) 1 MG tablet Take 1 tablet (1 mg total) by mouth daily. 4 01/18/20 active multivitamin with minerals Tab tablet Take 1 tablet by mouth daily. 4 01/18/20 active methadone (DOLOPHINE) 10 mg/5 mL oral solution Take 40 mL (80 mg total) by mouth daily. Max Daily Amount: 80 mg 4 12/24/19 active enoxaparin (LOVENOX) 40 MG/0.4ML injection Inject 0.4 mL (40 mg total) under the skin every 24 hours around the clock. Able to discontinue once patient able to ambulate at least 3 times/day active acetaminophen (TYLENOL) 325 MG tablet Take 2 tablets (650 mg total) by mouth every 6 (six) hours around the clock. 4 01/17/20 active baclofen (LIORESAL) 20 MG tablet Take 1 tablet (20 mg total) by mouth 3 (three) times a day. 4 01/17/20 active bisacodyl (DULCOLAX) 10 MG suppository Insert 1 suppository (10 mg total) into the rectum daily as needed for constipation. 01/17/20 active carboxymethylcellulose (REFRESH PLUS) 0.5 % Solution Administer 1 drop to both eyes every 4 (four) hours as needed for dry eyes. 01/17/20 active hydrOXYzine HCl (ATARAX) 25 MG tablet Take 1 tablet (25 mg total) by mouth every 4 (four) hours as needed for anxiety. 4 01/17/20 active lactulose (ENULOSE) 10 gm/15 mL solution Take 30 mL (20 g total) by mouth 3 (three) times a day. 01/17/20 active magnesium hydroxide (MILK OF MAGNESIA) 400 mg/5 mL suspension Take 30 mL by mouth daily as needed for constipation. 4 01/17/20 active nafcillin 2 g in sodium chloride-MBP 0.9% 100 mL IVPB Infuse 2 g into a venous catheter every 4 (four) hours. 4 01/17/20 active ondansetron (ZOFRAN) 4 MG/2ML injection Infuse 2 mL (4 mg total) into a venous catheter 4 times daily (every 6 hours) as needed for nausea or vomiting. 4 01/17/20 24 active PANTOprazole (PROTONIX) 40 MG EC tablet Take 1 tablet (40 mg total) by mouth 2 (two) times a day before meals. 4 01/17/20 24 active polyethylene glycol (miraLAx) 17 g packet Take 1 packet (17 g total) by mouth 2 times a day. 4 01/17/20 24 active pregabalin (LYRICA) 200 MG capsule Take 1 capsule (200 mg total) by mouth 3 (three) times a day. 4 01/17/20 24 active QUEtiapine (SEROquel) 100 MG tablet Take 1 tablet (100 mg total) by mouth nightly. 4 01/17/20 24 active ramelteon (ROZEREM) 8 MG tablet Take 1 tablet (8 mg total) by mouth nightly as needed for sleep. 4 01/17/20 24 active senna-docusate (SENNA-S) 8.6-50 MG Take 1 tablet by mouth nightly. 4 01/17/20 24 active simethicone (MYLICON) 80 MG chewable tablet Chew 1 tablet (80 mg total) every 6 (six) hours. 4 01/17/20 24 active HYDROmorphone (DILAUDID) 2 MG tablet Take 3 tablets (6 mg total) by mouth every 3 (three) hours as needed for severe pain. Max Daily Amount: 48 mg 4 12/24/19 24 active HYDROmorphone (DILAUDID) 4 MG tablet Take 1 tablet (4 mg total) by mouth every 3 (three) hours as needed for moderate pain. Max Daily Amount: 32 mg 4 12/24/19 24 active naloxone (NARCAN) 0.4 mg/mL injection Infuse 1 mL (0.4 mg total) into a venous catheter every 5 (five) minutes as needed for opioid reversal or respiratory depression. 4 active escitalopram (LEXAPRO) 5 MG tablet Take 1 tablet (5 mg total) by mouth daily. active Problems Problem Status Onset Date Problem Type Date of Resoluti on Source Thoracic spinal stenosis active 2023-11-23 ProblemAct [facility] Abscess of right lung without pneumonia active 2023-11-23 ProblemAct [facility] Pathologic thoracic fracture, sequela active 2023-11-23 ProblemAct [facility] Opioid use disorder active 2025-08-08 ProblemAct [facility] GERD (gastroesophageal reflux disease) active 2023-12-03 ProblemAct [facility] MSSA bacteremia active 2025-08-07 ProblemAct HH CCT Spontaneous fracture active 2023-11-23 ProblemAct [facility] Alcohol use disorder active 2025-08-07 ProblemAct [facility] IVDU (intravenous drug user) active 2025-08-07 ProblemAct [facility] History of spinal cord compression active 2025-08-08 ProblemAct [facility] History of osteomyelitis active 2025-08-08 ProblemAct [facility] Closed burst fracture of thoracic vertebra with delayed healing active 2023-11-23 ProblemAct [facility] Severe back pain active 2025-08-09 ProblemAct H HCCT Compression fracture of body of thoracic vertebra active 2025-08-06 ProblemAct H[facility] Abscess in epidural space of thoracic spine active 2023-11-23 ProblemAct [facility] Compression fracture of T12 vertebra active 2025-08-06 ProblemAct [facility] Encounters Encounter Type Encounter Reason Primary Diagnosis Location Date Inpatient Wedge compression fracture of T11-T12 vertebra, initial encounter for closed fracture Wedge compression fracture of T11-T12 vertebra, initial encounter for closed fracture [facility] 08[facility]07/2025 [facility] [employer] [employer] [facility] 08/06/2025 Ambulatory [facility] 08/06/2025 Ambulatory [facility] 08/06/2025 Ambulatory Abscess of lung without pneumonia Abscess of lung without pneumonia [facility] 02/05/2024 Ambulatory [facility] 02/04/2024 Ambulatory [facility] 02/04/2024 Ambulatory Intraspinal abscess and granuloma Intraspinal abscess and granuloma [facility] 01/09/2024 Inpatient Pathological fracture in other disease, other site, initial encounter for fracture Pathological fracture in other disease, other site, initial encounter for fracture [facility] 11/23/2023 Care Team Organization Name Specialty Phone Email Start Date End [facility] 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
--- OUTSIDE RECORDS SUMMARY | 2025-09-14 21:50 | XMS_ITS | Clinical Summary ---
Author Organization [facility] it Address [address] [place] [address] Care Team Providers Care Training Personnel Supervisor Name Role Phone Unavailable Primary Care Provider [...] Cervical Cancer Screening: P ap Smear 2003 HPV Vaccines (1 - 3-dose SCD M series) 2009 Depression Screening 11/25/2024 COVID-19 Vaccine (1 - 2023-2 5 season) 2025 Influenza Vaccine (#1) 2025 RSV Immunization Adult Patie nts (1 - 1-dose 75+ series) 2057 HIB [...]
--- NOTE | 2025-09-14 23:56 | ED.GENADULT ---
HPI - General Adult General Chief complaint: General Medical Stated complaint: fall broke fingers & back pain post surgery Time Seen by Provider: 09/14/25 23:56 Source: patient Limitations: no limitations History of Present Illness ED Provider: Dr. Mika Caballero HPI narrative: 44-year-old female with long history of IV drug abuse, history of diskitis, osteomyelitis and thoracic spine abscess status post surgery who presents emergency department after a fall. Patient states she fell on her right hand and now has swelling of the hand therefore she came to the emergency department for evaluation. She denied being ill in any other way. She denied fever, chills, nausea, vomiting, abdominal pain. She denies hitting her head. She denies neck pain. She states she has chronic back pain and has difficulty lying on her back. Patient was recently hospitalized at [facility] from 06/16/2025 until 07/06/2025 left upper extremity cellulitis with septic shock. Related Data Home Medications ?Medication ?Instructions ?Recorded ?Confirmed acetaminophen 325 mg tablet 975 mg PO Q8H 09/15/25 09/15/25 baclofen 10 mg tablet 10 mg PO TID 09/15/25 09/15/25 cefadroxil 500 mg capsule 1,000 mg PO BID 09/15/25 09/15/25 lidocaine 5 % topical patch 1 patch topical DAILY 09/15/25 09/15/25 methadone 10 mg/mL oral 140 mg PO DAILY 09/15/25 concentrate (Methadone Intensol) pregabalin 50 mg capsule 50 mg PO TID 09/15/25 09/15/25 Previous Rx's ?Medication ?Instructions ?Recorded acetaminophen 500 mg tablet 1,000 mg (2 x 500 mg) PO Q6H PRN 09/15/25 (Tylenol Extra Strength) fever or pain #20 tabs ibuprofen 400 mg tablet 400 mg PO TID PRN fever or pain 09/15/25 #30 tabs Allergies Allergy/AdvReac Type Severity Reaction Status Date / Time No Known Allergies Allergy Verified 09/14/25 20:31 Review of Systems Review of Systems: Yes all other systems are reviewed and are negative PMFSH Past Medical History Medical History Opioid use disorder Bacteremia Polysubstance use disorder Hepatitis C antibody positive in blood Cocaine abuse Heroin abuse PTSD (post-traumatic stress disorder) Depression Anxiety Opiate abuse, continuous Social History Social History Household Members: Other Housing: Homeless Do you presently have visiting nurse or other home services: No Alcohol intake: never Comment: pt refusing bed alarm and staff assistance Patient Tobacco Use Status: Current everyday Tobacco user Tobacco use type: Cigarette Cigarette Packs Per Day: 1 Cigarettes Per Day: 20.0 Years Smoked: 30 e-Cigarette/Vaping Use: Never Used Second Hand Smoke Exposure: Yes Substance Use Type: Crack/Cocaine Advance Directives Date on File: 10/03/23 service: No Physical Exam ED Vital Signs: Vital Signs - 24 hr 09/14/25 20:29 09/14/25 20:38 09/15/25 00:30 Temperature 99.0 F 99.0 F 98.5 F Pulse Rate 84 84 65 Respiratory Rate 18 18 16 Blood Pressure 124/69 124/69 110/66 Pulse Oximetry 89 L 98 97 Oxygen Delivery Method Room Air Nasal Cannula Nasal Cannula Oxygen Flow Rate 2 2 09/15/25 03:39 09/15/25 06:00 09/15/25 08:26 Temperature 97.7 F 97.2 F Pulse Rate 54 50 55 Respiratory Rate 17 16 13 Blood Pressure 96/58 L 107/67 93/58 L Pulse Oximetry 94 96 95 Oxygen Delivery Method Room Air Room Air Room Air Oxygen Flow Rate 09/15/25 12:44 09/15/25 14:26 09/15/25 17:01 Temperature 97.6 F 97.6 F 97.6 F Pulse Rate 52 51 51 Respiratory Rate 12 13 13 Blood Pressure 98/60 109/65 109/65 Pulse Oximetry 92 93 93 Oxygen Delivery Method Room Air Room Air Room Air Oxygen Flow Rate BMI result Body Mass Index 22.7 Vital signs were normal Exam: General: Awake, alert in no distress Head: Normocephalic, atraumatic Extremities: Patient has dirt on her hands denies falling outside. Patient has swelling of the dorsal aspect of her hand with increased tenderness 5th MTP joint with pain with movement of her 5th finger at this joint. Hand is neurovascularly intact. Psych: Pleasant, cooperative Course Course Course Narrative: at this time given infl markers I know she has hx of prior osteomyelitis of the spine, I think she should get MRI to make sure this was not a pathological fracture. I have ordered MRI of the spine for further workup. Hailey Ledesma, DO 09/15/25 1107 Reevaluation(s) Reevaluation #1: MRI pending signed out to Dr. Jamar Ledesma, DO 09/15/25 1215 Reevaluation #2: Jamar: The patient was signed out to me at change of shift pending the results of an MRI of the lumbar spine. The results of this study are as follows: IMPRESSION: Acute to subacute compression fracture deformities at T12, L1 and L2. Phlegmon versus abscess anterior lateral aspect prevertebral soft tissue compartment from T12 to L1 without epidural abscess. Superimposed osteomyelitis and L1 cannot be entirely excluded. Multilevel spondylosis resulting in central spinal canal and bilateral neuroforamina stenosis encroaching the neural elements from L3-4 to L5-S1. Cholelithiasis.. I spoke to the radiologist. He says there is no drainable collection but he does feel that there are possible findings of an acute infectious process. The patient has history is quite complex. Several weeks ago she had blood cultures positive for MSSA. She was also hospitalized at [facility] for a spinal infection in mid July and was ultimately transferred to [facility] because of this infection. I am not certain what the indication for transfer to [facility] to [facility] is. I discussed the case with the hospitalist service here. The hospitalist service does not feel we should admit the patient here since we do not have neurosurgery to advise us on the significance of these findings. Since the patient was most recently at [facility] and since the patient says that she may have had some kind of a procedure while she was most recently admitted to [facility] I think that the best course of action would be to transfer her back to [facility]. I will start antibiotics (piperacillin/tazobactam and vancomycin). I spoke to the [facility] transfer hotline and the patient has been accepted in transfer to the emergency room at [facility]. The accepting physician is Dr. Pritchett. Medications Administered Discontinued Medications Generic Name Dose Route Start Last Admin Trade Name Freq PRN Reason Stop Dose Admin Acetaminophen 975 mg 09/15/25 06:32 09/15/25 06:46 Acetaminophen 325 Mg Tablet PO 09/15/25 06:33 975 mg ONCE ONE Administration Gabapentin 300 mg 09/15/25 06:32 09/15/25 06:46 Gabapentin 300 Mg Capsule PO 09/15/25 06:33 300 mg ONCE ONE Administration Gadobutrol 7.5 ml 09/15/25 13:41 09/15/25 13:41 Gadobutrol 7.5 Ml Vial IVPUSH 09/15/25 13:42 5 ml ONCE ONE Administration Piperacillin Sod/Tazobactam 100 mls @ 200 mls/hr 09/15/25 15:49 09/15/25 16:52 Sod 4.5 gm/ Sodium Chloride IV 09/15/25 16:18 Infused ONCE ONE Infusion Vancomycin HCl 1,250 mg/ 250 mls @ 166.667 mls/hr 09/15/25 15:49 09/15/25 17:01 Sodium Chloride IV 09/15/25 17:18 Infused ONCE ONE Infusion Ketorolac Tromethamine 60 mg 09/15/25 02:33 09/15/25 02:43 Ketorolac Tromethamine 60 Mg/2 Ml Vial IM 09/15/25 02:34 60 mg ONCE ONE Administration Medical Decision Making Medical Decision Making MDM Narrative: 44-year-old female with long history of IV drug abuse, history of diskitis, osteomyelitis and thoracic spine abscess status post surgery who presents emergency department after a fall. Patient states she fell on her right hand and now has swelling of the hand therefore she came to the emergency department for evaluation. She denied being ill in any other way. She denied fever, chills, nausea, vomiting, abdominal pain. She denies hitting her head. She denies neck pain. She states she has chronic back pain and has difficulty lying on her back. vital signs were normal. Patient's hands are covered in dirt, there were no lacerations, patient has swelling over the dorsal aspect of her right hand with increased tenderness over the 5th MTP joint. Extremities neurovascularly intact. Differential diagnosis: ?Includes but is not limited to hand fracture, finger fracture, hand contusion Course: 00:25 Patient's exam did reveal tenderness with palpation of the 5th MTP joint. X-ray reveals a fracture of the base of the fifth proximal phalanx. 02:20 The patient was placed in a left hand gutter splint to include the 4th and 5th fingers and wrist. The hand and fingers were padded with 3 layers of cast padding prior to applying ortho glass splint. Patient was prescribed Tylenol 1000 mg every 6 hours as needed for pain and ibuprofen 400 mg every 6 hours as needed for pain. She was advised to contact the orthopedic group for follow-up. She was advised to try to keep the splint dry and clean until we follow up appointment. 02:34 I went to discharge the patient and she complained of thoracic and lumbar back pain. She states that since being in the emergency department the pain has gotten worse and she is concerned that she may have messed up her back surgery. Patient states that she does smoke crack cocaine and smoked prior to coming to emergency department. She states she injected crack cocaine 2 days prior. She told me that she tripped and fell landing on her back and that is why she has increased back pain. Nurses noted that the patient had low O2 Sat readings and was placed on 2 L of oxygen via nasal cannula. I place the patient on an O2 saturation monitor and took her off oxygen to see how she does off oxygen. On exam she does have thoracic and lumbar vertebral tenderness therefore I ordered a CT scan thoracic lumbar spine to rule out fracture. Spinal abscess needs to be considered given her IVDU but will start with CT scans. Patient was given Toradol 60 mg IM. At the end of my shift, the patient's care was turned over to my colleague, Dr. Kuo 6:24 AM 09/15/2025 (Dr. Celeste Kuo, D.O.) patient has evidence of L1 compression fracture which appears to be acute. Her pain is poorly controlled after Toradol. Plan for labwork, Tylenol, gabapentin for pain. Admitted in guarded condition. Differential Diagnosis Differential Diagnoses: The differential diagnosis associated with the presentation includes (See above) Admission/Observation Consideration of admission/observation: Escalation of care including admission/observation considered (yes) Lab Data 09/15/25 08:06 09/15/25 08:06 Labs: Lab Results 09/15/25 09/15/25 09/15/25 Range/Units 08:06 11:17 11:55 WBC 10.0 (4.8-10.8) X10*3/uL RBC 4.03 L (4.20-5.50) X10*6/uL Hgb 10.2 L (12.0-16.0) g/dl Hct 32.7 L (37.0-47.0) % MCV 81.1 (80.0-98.0) fL MCH 25.3 L (27.0-33.0) pg MCHC 31.2 (31.0-35.0) g/dl RDW 18.3 H (11.0-16.0) % Plt Count 258 D (160-400) X10*3/uL MPV 9.1 L (9.4-12.3) fL Immature Gran % (Auto) 0.6 H (0.0-0.4) % Neut % (Auto) 78.4 H (45-73) % Lymph % (Auto) 15.1 L (20-40) % [place] % (Auto) 5.7 (2-11) % Eos % (Auto) 0.1 (0-4) % Baso % (Auto) 0.1 (0-2) % Lymph # (Auto) 1.5 (1.2-4.9) X10*3/uL [place] # (Auto) 0.6 (0.1-1.2) X10*3/uL Eos # (Auto) 0.0 (0.0-0.4) X10*3/uL Baso # (Auto) 0.0 (0.0-0.2) X10*3/uL Abs Immat Gran (auto) 0.06 H (0.00-0.03) X10*3/uL Absolute Neuts (auto) 7.8 (2.0-8.3) x10*3/uL Absolute Nucleated RBC 0.000 (0.0-0.012) X10*3/uL Nucleated RBC % (auto) 0.0 (0.0-0.2) /100WBC ESR 101 H (0-20) MM/HR Sodium 138 (135-145) mmol/L Potassium 3.8 (3.3-5.1) mmol/L Chloride 103 (96-108) mmol/L Carbon Dioxide 28 (22-29) mmol/L Anion Gap 11 L (12-20) BUN 18 H (9-16) mg/dL Creatinine 0.55 (0.5-1.4) mg/dL Estim Creat Clear Calc 95.7 Estimated GFR > 60 Random Glucose 73 (60-115) mg/dL Lactic Acid 0.7 (0.5-2.0) mmol/L Calcium 9.2 (8.4-10.2) mg/dL Total Bilirubin 0.3 (0.0-1.0) mg/dL AST 36 H (5-31) U/L ALT 22 (0-31) U/L Alkaline Phosphatase 118 H (39-117) U/L Total Creatine Kinase 28 (26-140) U/L C-Reactive Protein 17.31 H (< or = 0.50) mg/dL Total Protein 7.7 (6.5-8.0) g/dL Albumin 3.1 L (3.5-5.0) g/dL Beta HCG, Quant < 2 mIU/mL Urine Color [place] Urine Appearance Hazy Urine pH 5.5 (5.0-9.0) Ur Specific [place] >= 1.030 H (1.005-1.025) Urine Protein 100 (2+) H (Neg-Trace) mg/dL Urine Glucose (UA) Negative (Negative) mg/dL Urine Ketones See Note (Negative) mg/dL Urine Blood Negative (Negative) Urine Nitrite See Note (Negative) Ur Leukocyte Esterase Negative (Negative) Urine RBC 0-2 (0-2) /HPF Urine WBC 0-5 (0-5) /HPF Ur Squamous Epith Cells 3-5 (0-2) /HPF Urine Bacteria None Seen (None Seen) Hyaline Casts >20 (0-2) /LPF Granular Casts Present Urine Opiates Screen Not Detected (Not Detect) Ur Buprenorphine Scrn Not Detected (Not Detect) ng/mL Ur Oxycodone Screen Not Detected (Not Detect) ng/mL Urine Methadone Screen Positive H (Not Detect) ng/mL Urine Fentanyl Screen POSITIVE H (Not Detect) Ur Barbiturates Screen Not Detected (Not Detect) Ur Phencyclidine Scrn Not Detected (Not Detect) Ur Amphetamines Screen Not Detected (Not Detect) U Benzodiazepines Scrn Not Detected (Not Detect) Urine Cocaine Screen POSITIVE H (Not Detect) U Marijuana (THC) Screen POSITIVE H (Not Detect) Independent Interpretation I performed an independent interpretation of an: Plain X-Ray Interpretation: My interpretation of the patient's three-view right hand x-ray is as follows: Acute intra-articular fracture at the base of the 5th proximal phalanx. Radiologist noted a fracture at the base of the 5th metacarpal carpal but and I do not see a fracture in this area I think that this was and error in dictation Radiology Impression Discussion of test interpretation with radiology: I have reviewed the radiologist's reading. Radiologist Impression: 3 view right hand Comparison: None provided Findings: No dislocation. No arthritic change. No erosions. No radiopaque foreign body. Dorsal hand swelling. IMPRESSION: Acute intra-articular nondisplaced impacted fracture at the base of 5th metacarpal. This document has been electronically signed by: Rachael Laboy MD on 09/14/2025 21:46:14 CT thoracic spine without contrast Comparison: CT/SR - CT LUMBAR SPINE WO IV CON - 09/15/25 02:[address]/SR - CT THORACIC SPINE W IV CON - 06/26/25 19:19 EDT Findings: Posterior stabilization hardware T3-L1 unchanged. There is loosening of the T3 and T4 screws. T6-T7 posterior decompression. T7 vertebral body is absent. No change. T12 previous spine augmentation cement. Moderate compression deformity. Acute moderate L1 superior endplate compression fracture. There is a small area of ground-glass opacity in the right lower lobe at the T6-T8 level is unchanged. Nonspecific. No pleural effusion. Impression: 1. Interval hardware loosening at T3-T4 posterior stabilization hardware. 2. Acute L1 superior endplate moderate compression fracture. 3. Additional chronic findings as above. This document has been electronically signed by: Rachael Laboy MD on 09/15/2025 04:03:32 CT lumbar spine without contrast Comparison: CR/SR - XR LUMBAR SPINE 2-3 VIEWS - 09/19/23 15:05 EDT Findings: Vertebral alignment is within normal limits. Acute moderate superior endplate L1 compression fracture. Previous moderate T12 compression fracture with spinal augmentation cement in place. Mild circumferential disc bulging L3-S1. Associated mild bilateral foraminal stenoses. Visualized abdominal contents unremarkable. IMPRESSION: Acute moderate superior endplate L1 compression fracture. This document has been electronically signed by: Rachael Laboy MD on 09/15/2025 03:53:22 Discharge Plan Discharge Clinical Impression: Traumatic compression fracture of L1 lumbar vertebra, IVDU (intravenous drug user), Housing insecurity, Abscess of paraspinal muscles Fall Qualifiers: Encounter type: initial encounter Qualified Code(s): W19.XXXA - Unspecified fall, initial encounter Back pain Qualifiers: Chronicity: acute Back pain laterality: midline Sciatica presence: without sciatica Fracture of proximal phalanx of digit of right hand Qualifiers: Encounter type: initial encounter Fracture type: closed Qualified Code(s): S62.619A - Displaced fracture of proximal phalanx of unspecified finger, initial encounter for closed fracture Patient Disposition: [facility] Hospital Transfer Details: [facility] Emergency Department Instructions: Finger Fracture (ED) Prescriptions: New acetaminophen [Tylenol Extra Strength] 500 mg tablet 1,000 mg PO Q6H PRN (Reason: fever or pain) Qty: 20 0RF ibuprofen 400 mg tablet 400 mg PO TID PRN (Reason: fever or pain) Qty: 30 0RF No Action acetaminophen 325 mg tablet 975 mg PO Q8H cefadroxil 500 mg capsule 1,000 mg PO BID baclofen 10 mg tablet 10 mg PO TID lidocaine 5 % adhesive patch,medicated 1 patch topical DAILY pregabalin 50 mg capsule 50 mg PO TID methadone [Methadone Intensol] 10 mg/mL Concentrate 140 mg PO DAILY Interventions: Acute Care Transfer Worksheet (ED) Last Done: 09/15/25 17:01 Discharge Date/Time: 09/15/25 17:01 Print Language: Slovenian
[2025-09-15] VITALS (7 sets, daily range): BP systolic 93–110; BP diastolic 58–67; PULSE 50–65; RESP 12–17; TEMP 36.2–36.9; O2SAT 92–97
--- NOTE | 2025-09-15 06:09 | PC.NURSE ---
Pt ambulated independently to BR with slow steady gait.
[2025-09-15 08:10] LABS: MANUAL DIFF FLAG NO
[2025-09-15 08:16] LABS: Hematocrit 32.7 % (37.0-47.0); Hemoglobin 10.2 g/dl (12.0-16.0); Imm Gran Abs Auto 0.06 X10*3/uL (0.00-0.03); Imm Gran Pct Auto 0.6 % (0.0-0.4); Lymphocytes Absolute Auto 1.5 X10*3/uL (1.2-4.9); Mean Corpuscular HGB Conc 31.2 g/dl (31.0-35.0); Mean Corpuscular Hemoglobin 25.3 pg (27.0-33.0); Mean Corpuscular Volume 81.1 fL (80.0-98.0); NRBC Abs Auto 0.000 X10*3/uL (0.0-0.012); NRBC Pct Auto 0.0 /100WBC (0.0-0.2); Platelet Count 258 X10*3/uL (160-400); Red Blood Count 4.03 X10*6/uL (4.20-5.50); White Blood Count 10.0 X10*3/uL (4.8-10.8)
[2025-09-15 08:34] LABS: Alanine Aminotransferase 22 U/L (0-31); Albumin Level 3.1 g/dL (3.5-5.0); Alkaline Phosphatase 118 U/L (39-117); Anion Gap 11 (12-20); Aspartate Amino Transferase 36 U/L (5-31); Blood Urea Nitrogen 18 mg/dL (9-16); Calcium 9.2 mg/dL (8.4-10.2); Carbon Dioxide 28 mmol/L (22-29); Chloride 103 mmol/L (96-108); Creatinine Clr Calc Pharmacy 95.7; Estimated Glomerular Filt Rate > 60; Potassium 3.8 mmol/L (3.3-5.1); Sodium 138 mmol/L (135-145); Total Protein 7.7 g/dL (6.5-8.0)
--- NOTE | 2025-09-15 11:09 | PC.NURSE ---
Patient ambulated out of bed to bathroom with steady gait. Attempting to provide urine specimen at this time.
[2025-09-15 11:29] LABS: Appearance Urine Hazy; Glucose Urine UA Negative (Negative); PH 5.5 (5.0-9.0); Specific Gravity - Urine >= 1.030 (1.005-1.025); UMIC TRIGGER UACC YES
[2025-09-15 11:37] LABS: Cannabinoid Screen Urine POSITIVE (Not Detect)
--- NOTE | 2025-09-15 11:43 | PC.NURSE ---
MRI screening form completed with patient at the bedside. Faxed to MRI. MRI to be done at 12:30pm per Angle Frederick (comparative sociology professor). Attempting to obtain lactic acid and blood cultures at this time. Difficult stick. Dr. Ledesma aware.
--- NOTE | 2025-09-15 12:53 | PC.NURSE ---
Away for MRI at this time.
--- NOTE | 2025-09-15 15:10 | PHA.MEDREC ---
Pharmacy Consult ? Medication Reconciliation Pharmacy has completed the medication reconciliation. Spoke to patient to confirm med list. Patient could only recall taking an antibiotic and methadone (last dose today 09/15/25), she said she was recently at [facility]. Med rec was done using recent pharmacy claims (meds were sent in by Doctor Jose at [facility] on 08/12/25).
--- NOTE | 2025-09-15 15:26 | PC.NURSE ---
Okay to eat, per . Given turkey sandwich, breanna chantale, and strawberry ice cream. Awaiting response from hospitalist regarding disposition.
--- NOTE | 2025-09-15 17:02 | PC.NURSE ---
Vancomycin 1250mg initiated at 17:00 by this RN. Infusing over 90 minutes. [facility] transferring patient to [facility] at 17:01 with Vancomycin infusing.
--- NOTE | 2025-09-15 23:16 | PC.NURSE ---
lab called with positive blood culture for gram positive cocci in chains. This RN called to [facility] to make them aware of result. waited 10 minutes on phone to be connected to patients nurs but there was no answer.
== END 2025-09-15 17:01 | disposition short-term general hospital (02) ==
PROVIDERS: Emergency Medicine; Emergency Provider Emergency Medicine
DX: S32.019A Unspecified fracture of first lumbar vertebra, initial encounter for closed fracture (principal); S69.91XA Unspecified injury of right wrist, hand and finger(s), initial encounter; F11.10 Opioid abuse, uncomplicated; M60.08 Infective myositis, other site; M54.50 Low back pain, unspecified; R07.89 Other chest pain; F14.90 Cocaine use, unspecified, uncomplicated; M79.641 Pain in right hand; F17.210 Nicotine dependence, cigarettes, uncomplicated; X50.9XXA Other and unspecified overexertion or strenuous movements or postures, initial encounter; Y93.9 Activity, unspecified; Y92.9 Unspecified place or not applicable; Y99.8 Other external cause status; Z51.81 Encounter for therapeutic drug level monitoring; Z79.899 Other long term (current) drug therapy
CPT/HCPCS: 36415; 71046; 72128; 72131; 72158; 73130; 80053; 80307; 81001; 82550; 83605; 84702; 85025; 85652; 86140; 87040; 87077; 87186; 87205; 96365; 96372; 99285; A9585; J1885; J2543; J3374

== ENCOUNTER → 2025-09-14 21:10 | Outpatient (BNV) | payer OTHER, SELFPAY | PROVIDERS: Visit Provider Radiology Diagnostic Radiology | DX: S62.346A Nondisplaced fracture of base of fifth metacarpal bone, right hand, initial encounter for closed fracture (principal) | CPT/HCPCS: 73130 ==

== ENCOUNTER → 2025-09-15 02:33 | Outpatient (BNV) | payer OTHER, SELFPAY | PROVIDERS: Emergency Provider Emergency Medicine; Visit Provider Radiology Diagnostic Radiology | DX: M54.6 Pain in thoracic spine (principal); S22.010A Wedge compression fracture of first thoracic vertebra, initial encounter for closed fracture; S22.020A Wedge compression fracture of second thoracic vertebra, initial encounter for closed fracture; S22.080A Wedge compression fracture of T11-T12 vertebra, initial encounter for closed fracture; M47.816 Spondylosis without myelopathy or radiculopathy, lumbar region; M48.061 Spinal stenosis, lumbar region without neurogenic claudication; R07.9 Chest pain, unspecified; R09.02 Hypoxemia | CPT/HCPCS: 71046; 72128; 72131; 72158 ==